=== PATIENT | female | born 1950 | race Caucasian/White ===

== ENCOUNTER 2023-10-10 09:19 | Emergency (ER) | payer MEDICARE, OTHER, SELFPAY ==
[2023-10-10 09:25] VITALS: BP 108/67
[2023-10-10 09:50] VITALS: BMI 19.4
--- NOTE | 2023-10-10 09:55 | ED.GENMED ---
History of Present Illness
General
Chief Complaint: Dizziness
Source: patient and records
Exam Limitations: none
Time Seen by Provider: 10/10/23 09:31
Nursing documentation reviewed up to this point in time: agreed with
Travel History
Have you had any contact with someone who has COVID-19?: No
Do you have any symptoms of coronavirus? Fever > 100 degrees, chills, cough, shortness of breath, sore throat, loss of taste or smell, muscle aches, or headache?: No
History of Present Illness
History of Present Illness:
73-year-old female COPD lung cancer seizure disorder presents for evaluation of dizziness, subacute onset she was admitted a few weeks ago with hyponatremia pleural effusion her Pleurx catheter was drained she was given Samsca for few days, since
then she has had weight loss fatigue dizziness despite drinking a lot of water, no chest pain no worsening shortness of breath no leg edema she comes here today requesting a CAT scan of her head and chest as ordered by her outpatient physicians at
[facility] also for evaluation of her complaints
Past History
Past History
ED Past Medical History: Cancer, COPD, HTN, Seizures and Other (Crohn's disease, anxiety)
ED Past Surgical History: Bowel resection (For Crohn's disease with a subsequent colostomy), Cholecystectomy and Other (Partial lung lobectomy)
Social History
Tobacco: Former smoker
Alcohol: None
Drug: None
Personal:
Living: alone
Employment: Employed
Family History
Family History: Other (No significant)
Review of Systems
Review of Systems
All Other Systems: Not applicable
Constitutional: Reports weight loss and fatigue
EENT: Reports no symptoms
Respiratory: Reports no symptoms
Cardiac: Reports no symptoms
ABD/GI: Reports no symptoms
: Reports no symptoms
Musculoskeletal: Reports no symptoms
Skin: Reports no symptoms
Neurological: Reports dizzy and weakness
Endocrine: Reports no symptoms
Hematologic/Lymphatic: Reports no symptoms
Psychiatric: Reports no symptoms
Phy Exam
Physical Exam
Physical Exam:
Physical Exam
General: Nontoxic chronically ill-appearing female
Neck: Lips are slightly dry
Heart: s1/s2 regular rate and rhythm, no murmur. equal radial pulses.
Lungs: no acute respiratory distress.
Neuro: alert and oriented. no focal neurological deficits
Skin: no rash
Psychiatric: cooperative
Extremities: no edema.
Course
Orders/Labs/Results
Orders:
Orders
10/10/23 09:45
Electrocardiogram (*1) Stat
Reason for Study: Other
Other Reason for Exam: chest pain
Cardiac Monitoring- Treatment ONCE
EKG- Treatment ONCE
10/10/23 09:51
CT Head W/o Iv Contrast Urgent
Comment:
Reason For Exam: dizzy
10/10/23 10:00
Complete Blood Count/With Diff Urgent
10/10/23 10:41
0.9% Sodium Chloride 250 ml [Nss] 250 ml IV BOLUS
Ondansetron Injectable [Zofran] 4 mg IV NOW STA
10/10/23 10:45
Comprehensive Metabolic Panel Urgent
Magnesium Urgent
TSH Urgent
10/10/23 12:10
0.9% Sodium Chloride 250 ml [Nss] 250 ml IV BOLUS
Dexamethasone Sod Phosphate [Decadron] 10 mg IV NOW STA
Abnormal Lab Results
10/10/23 10/10/23
10:00 10:45
Hgb 11.4 L g/dL
(12.0-16.0)
Hct 35.0 L %
(37.0-47.0)
MCH 26.9 L pg
(27.0-31.0)
MCHC 32.6 L g/dL
(33.0-37.0)
RDW 19.5 H %
(11.5-14.5)
Plt Count 88 L 10^3/uL
(130-400)
Abs Immat Gran (auto) 0.1 H 10^3/uL
(0-0.05)
Absolute Lymphs (auto) 0.6 L 10^3/uL
(1.2-3.4)
Immature Gran % 0.6 H %
(0-0.5)
Neutrophils % 82.2 H %
(42.2-75.2)
Lymphocytes % 8.2 L %
(20.5-51.1)
BUN 35 H mg/dl
(7-17)
Glucose 144 H mg/dl
(70-99)
Calcium 8.2 L mg/dl
(8.4-10.2)
Magnesium 1.5 L mg/dl
(1.6-2.3)
Total Bilirubin 1.5 H mg/dl
(0.2-1.3)
AST 84 H U/L
(14-36)
ALT 116 H U/L
(0-35)
Alkaline Phosphatase 243 H U/L
(38-126)
Total Protein 5.6 L g/dl
(6.3-8.2)
Albumin 3.0 L g/dl
(3.5-5.0)
10/10/23 10:00
10/10/23 10:45
Vital Signs
Initial and Last Documented VS:
Initial Vital Signs
Temp Pulse Resp BP Pulse Ox
97.8 F 99 18 108/67 96
10/10/23 09:25 10/10/23 09:25 10/10/23 09:25 10/10/23 09:25 10/10/23 09:25
Last Documented Vital Signs
Temp Pulse Resp BP Pulse Ox
97.8 F 99 18 108/67 98
10/10/23 09:25 10/10/23 09:25 10/10/23 09:25 10/10/23 09:25 10/10/23 09:52
MDM/Problems Addressed
Differential Diagnosis Includes:
Dehydration hyponatremia hypomagnesemia disease progression
MDM/Problems Addressed:
Fatigue
Chronic conditions affecting care:
Lung cancer COPD hyponatremia
Chronic conditions affecting care: COPD and Cancer
Acute Exacerbation and/or Progression of Chronic Illness:
Lung cancer COPD hyponatremia
Acute Exacerbation and/or Progression of Chronic Illness: COPD, Neurological disorder and Cancer
*Radiology
Radiology exam reviewed: preliminary read by ED provider
*Pulse Oximetry
Patient hypoxic: no
*Motor Inspection Mechanic Interpretation
Rate: normal
Interpretation: normal
Heart Rate: 78
Rhythm: sinus
*Critical Care Note
Total Time (30-74mins, 75-104mins- exclusive of procedures): Not Applicable
Data Reviewed
Review of Other/Old Records Reveals: Progress Notes and Discharge Summary
Source: patient and records
Update Note
Update Note:
Patient now tells me that is too early for her CT of her chest which she would like to have an MRI of her brain told her that we do not typically do that in the emergency department
12:12 PM labs noted BUN/creatinine ratio is up, will give another bolus of fluids, patient also complaining of some low back pain rating into her buttock and knees wondering about steroids which is not unreasonable also wondering about a nutrition
consult wondering about an MRI of her brain which she already has scheduled provided reassurance
ED Attending Note
-
Portions of this chart may have been created with voice recognition software.� Occasional wrong word or��sound alike� substitutions may have occurred due to the inherent limitations of voice recognition software.
Discharge Plan
Departure
Patient Disposition: Home (Routine Discharge)
Date of Disposition: 10/10/23
Time of Disposition: 12:13
Patient with high blood pressure during this ER visit?: No
Condition: Good
Discharge Problem:
Dehydration, Low back pain
Instructions: Dizziness, Low back pain in adults
Prescriptions:
No Action
lisinopril 5 MG tablet
2.5 mg PO DAILY
lorazepam 1 MG tablet
0.5 mg PO QPM
cyanocobalamin (vitamin B-12) 1,000 MCG tablet
1,000 mcg IM MONTHLY
phenobarbital 64.8 MG tablet
32.4 mg PO QPM
Patient Comments:
09/17/23- patient weening off
fluvoxamine 50 MG tablet
100 mg PO DAILY
cyclosporine [Restasis] 10 DROPS dropperette
1 drp BOTH EYES BID
cholecalciferol (vitamin D3) 50,000 UNIT capsule
50,000 unit PO WEEKLY
rosuvastatin [Crestor] 5 mg Tablet
5 mg PO QPM
tiotropium bromide [Spiriva with HandiHaler] 18 mcg Capsule, W/Inhalation Device
1 cap INHALATION R DAILY
fluticasone furoate-vilanterol [Breo Ellipta] 100-25 mcg/dose Blister With Device
1 inh INHALATION R DAILY
metoprolol succinate [Toprol XL] 50 mg Tablet Extended Release 24 Hr
50 mg PO DAILY
loperamide 2 mg Tablet
2 mg PO Q4HPRN PRN (Reason: diarrhea)
oxcarbazepine 300 mg Tablet
150 mg PO BID
Patient Comments:
09/17/23- patient weening off
omeprazole 40 mg Capsule,Delayed Release(Dr/Ec)
40 mg PO DAILYPRN PRN (Reason: gerd)
Krazati 200 mg Tablet
600 mg PO BID
ondansetron 8 mg Tablet,Disintegrating
8 mg PO Q8H PRN (Reason: nausea)
magnesium oxide 500 mg Tablet
500 mg PO DAILY Qty: 0 0RF
sodium chloride 1,000 mg tablet,soluble
1,000 mg PO BID Qty: 60 0RF
hydrocortisone 2.5 % cream
1 applic topical BID PRN (Reason: itch) Qty: 20 0RF
Referrals:
Marilyn Cortez MD [Family Provider] -
Interventions
Interventions:
*Risk Screen - Suicide Last Done: 10/10/23 09:51
*General Assessment Last Done: 10/10/23 09:51
*Neglect/Abuse Screening Last Done: 10/10/23 09:49
ED- Fall Risk Assessment Last Done: 10/10/23 09:52
*ED COVID-19 Vaccine History Last Done: 10/10/23 09:25
ED- Neurological Assessment Last Done: 10/10/23 09:52
[2023-10-10 10:23] LABS: % Basophils 0.1 % (0-2); % Immature Granulocytes 0.6 % (0-0.5); % Lymphocytes 8.2 % (20.5-51.1); % Monocytes 7.9 % (1.7-9.3); % Neutrophils 82.2 % (42.2-75.2); Absolute Eosinophils 0.1 10^3/uL (0-0.7); Absolute Immature Granulocytes 0.1 10^3/uL (0-0.05); Absolute Lymphocytes 0.6 10^3/uL (1.2-3.4); Absolute Monocytes 0.6 10^3/uL (0.1-0.6); Absolute Neutrophils 6.4 10^3/uL (1.4-6.5); Hemoglobin 11.4 g/dL (12.0-16.0); Mean Corp Hgb Conc. 32.6 g/dL (33.0-37.0); Mean Corpuscular Hgb 26.9 pg (27.0-31.0); Mean Corpuscular Volume 82.5 fL (81.0-99.0); Nucleated Red Blood Cells % 0 %; Red Blood Cell Count 4.24 10^6/uL (4.20-5.40); Red Cell Dist. Width 19.5 % (11.5-14.5); White Blood Cell Count 7.8 10^3/uL (4.8-10.8)
[2023-10-10] MEDS: ZOFRAN 4 MG IV (10:47)
[2023-10-10] MEDS: NSS 250 IV (10:49)
[2023-10-10 11:00] VITALS: BP 98/52
[2023-10-10 11:12] LABS: ALT (SGPT) 116 U/L (0-35); AST (SGOT) 84 U/L (14-36); Alkaline Phosphatase 243 U/L (38-126); Blood Urea Nitrogen 35 mg/dl (7-17); Calcium 8.2 mg/dl (8.4-10.2); Carbon Dioxide 25 mmol/L (22-30); Chloride 107 mmol/L (98-107); Estimated Creatinine Clearance 49 ml/min; Glucose 144 mg/dl (70-99); Magnesium 1.5 mg/dl (1.6-2.3); Potassium 3.6 mmol/L (3.5-5.1); Sodium 136 mmol/L (135-145); Total Bilirubin 1.5 mg/dl (0.2-1.3); Total Protein 5.6 g/dl (6.3-8.2); eGFR > 60.00
[2023-10-10 11:42] LABS: TSH 4.16 uIU/ml (0.47-4.68)
[2023-10-10 11:59] LABS: Platelet Count 88 10^3/uL (130-400)
[2023-10-10 12:16] VITALS: BP 109/63
[2023-10-10] MEDS: DECADRON 10 MG IV (12:19)
[2023-10-10] MEDS: NSS 500 IV (12:22)
[2023-10-10 12:56] VITALS: BP 98/58
[2023-10-10 12:57] VITALS: BP 107/59
== END 2023-10-10 13:20 | disposition home or self-care (01) ==
LOC: EMR 09:19
PROVIDERS: EMERGENCY PHYSICIAN Emergency Medicine; FAMILY PHYSICIAN Internal Medicine
DX: E86.0 Dehydration (principal); M54.50 Low back pain, unspecified; R42 Dizziness and giddiness; I10 Essential (primary) hypertension; J44.9 Chronic obstructive pulmonary disease, unspecified; F41.9 Anxiety disorder, unspecified; K50.90 Crohn's disease, unspecified, without complications; E87.1 Hypo-osmolality and hyponatremia; Z87.891 Personal history of nicotine dependence; Z93.3 Colostomy status
CPT/HCPCS: 99284; 96374; 96375; 96361; 70450; 80053; 83735; 84443; 85025; 93005

== ENCOUNTER 2023-10-26 09:31 | Emergency (ER) | payer MEDICARE, OTHER, SELFPAY ==
[2023-10-26 09:38] VITALS: BP 115/78
--- NOTE | 2023-10-26 09:56 | EDRN ---
Pt walked back to her room in the treatment area and said to me 'I am not going to change. I do not need to change to get an IV.'
--- NOTE | 2023-10-26 10:05 | ED.GENMED ---
History of Present Illness
General
Chief Complaint: Abnormal Lab Value
Time Seen by Provider: 10/26/23 09:47
Travel History
Have you had any contact with someone who has COVID-19?: No
Do you have any symptoms of coronavirus? Fever > 100 degrees, chills, cough, shortness of breath, sore throat, loss of taste or smell, muscle aches, or headache?: No
History of Present Illness
History of Present Illness:
73-year-old female with history of lung cancer, COPD, hypertension, hyperlipidemia, and Crohn's disease status post partial SB resection with subsequent ostomy presents to the emergency department for evaluation of general fatigue and malaise. She
notes that her ostomy output is increased in recent days. Had outpatient labs 2 days ago showing a low magnesium level of 1.0. Denies any muscle spasms, heart palpitations, or chest pain. No vomiting. Did have increased stool output after eating
fish last night. No abdominal pain
Past History
Past History
ED Past Medical History: Cancer, COPD, HTN, Seizures and Other (Crohn's disease, anxiety)
ED Past Surgical History: Bowel resection (For Crohn's disease with a subsequent colostomy), Cholecystectomy and Other (Partial lung lobectomy)
Social History
Tobacco: Former smoker
Alcohol: None
Drug: None
Personal:
Living: alone
Employment: Employed
Family History
Family History: Other (No significant)
Review of Systems
Review of Systems
Allergies reviewed?: Yes
All Other Systems: ROS reviewed and negative except as documented in HPI and ROS
Phy Exam
Physical Exam
Physical Exam:
GEN: Well appearing, NAD, WDWN
HEENT: Oral mucosa moist, no scleral icterus
Cardiac: Slightly tachycardic, regular
Lung: No respiratory distress, no tachypnea
MSK: No gross deformity or injuries
Skin: Good color, no pallor or jaundice, no rashes
Neuro: AO x3, moves all extremities freely
Psych: Calm, cooperative
Course
Orders/Labs/Results
Orders:
Orders
10/26/23 10:05
Electrocardiogram (*1) Urgent
Reason for Study: QTc Monitoring
EKG- Treatment ONCE
10/26/23 10:13
Magnesium Sulfate 1 grams 0.9% Sodium Chloride 100 ml [Nss] 100 ml IV NOW
10/26/23 10:15
Lactated Ringers [Lr] 1,000 ml Potassium Chloride [KCl] 10 meq IV 1,000 mls/hr
10/26/23 10:37
Complete Blood Count/With Diff Urgent
Comprehensive Metabolic Panel Urgent
Magnesium Urgent
10/26/23 10:49
Urinalysis Reflex To Culture Urgent
Date Specimen was Collected: 10/26/23
Time Specimen was Collected: 10:48
Urine Microscopic Reflex Cult Urgent
Urine Culture Urgent
MABLE Source: U
Specimen Description:
Date Specimen was Collected: 10/26/23
Time Specimen was Collected: 10:48
10/26/23 11:29
Ondansetron Injectable [Zofran] 4 mg IV NOW STA
Abnormal Lab Results
10/26/23 10/26/23
10:37 10:49
Hgb 11.7 L g/dL
(12.0-16.0)
Hct 35.6 L %
(37.0-47.0)
MCV 80.5 L fL
(81.0-99.0)
MCH 26.5 L pg
(27.0-31.0)
MCHC 32.9 L g/dL
(33.0-37.0)
RDW 18.9 H %
(11.5-14.5)
Abs Immat Gran (auto) 0.1 H 10^3/uL
(0-0.05)
Absolute Lymphs (auto) 0.8 L 10^3/uL
(1.2-3.4)
Immature Gran % 1.1 H %
(0-0.5)
Neutrophils % 80.5 H %
(42.2-75.2)
Lymphocytes % 12.3 L %
(20.5-51.1)
Sodium 129 L mmol/L
(135-145)
BUN 23 H mg/dl
(7-17)
Creatinine 0.5 L mg/dL
(0.6-1.0)
Magnesium 1.1 L mg/dl
(1.6-2.3)
AST 62 H U/L
(14-36)
ALT 65 H U/L
(0-35)
Leukocyte Esterase Rfl 2+ A
(Negative)
Urine WBC (Reflex) 11-15 A /HPF
(0-5)
Urine Bacteria (Reflex) Few A
(Negative)
10/26/23 10:37
10/26/23 10:37
Vital Signs
Initial and Last Documented VS:
Initial Vital Signs
Temp Pulse Resp BP Pulse Ox
98.1 F 110 18 115/78 100
10/26/23 09:38 10/26/23 09:38 10/26/23 09:38 10/26/23 09:38 10/26/23 09:38
Last Documented Vital Signs
Temp Pulse Resp BP Pulse Ox
98.4 F 87 16 104/57 100
10/26/23 11:52 10/26/23 12:50 10/26/23 12:50 10/26/23 12:50 10/26/23 12:50
MDM/Problems Addressed
MDM/Problems Addressed:
Patient is hypomagnesemic with no EKG changes. She is tolerating p.o. fluids. Given IV fluids and electrolyte repletion, tolerated well. Recommend she have outpatient labs rechecked next week
*Critical Care Note
Total Time (30-74mins, 75-104mins- exclusive of procedures): Not Applicable
ED Attending Note
-
Portions of this chart may have been created with voice recognition software.� Occasional wrong word or��sound alike� substitutions may have occurred due to the inherent limitations of voice recognition software.
Discharge Plan
Departure
Patient Disposition: Home (Routine Discharge)
Date of Disposition: 10/26/23
Time of Disposition: 12:03
Patient with high blood pressure during this ER visit?: No
Discharge Problem:
Hypomagnesemia
Instructions: Dehydration, Adult (DC)
Prescriptions:
No Action
lisinopril 5 MG tablet
2.5 mg PO DAILY
lorazepam 1 MG tablet
0.5 mg PO QPM
cyanocobalamin (vitamin B-12) 1,000 MCG tablet
1,000 mcg IM MONTHLY
phenobarbital 64.8 MG tablet
32.4 mg PO QPM
Patient Comments:
09/17/23- patient weening off
fluvoxamine 50 MG tablet
100 mg PO DAILY
cyclosporine [Restasis] 10 DROPS dropperette
1 drp BOTH EYES BID
cholecalciferol (vitamin D3) 50,000 UNIT capsule
50,000 unit PO WEEKLY
rosuvastatin [Crestor] 5 mg Tablet
5 mg PO QPM
tiotropium bromide [Spiriva with HandiHaler] 18 mcg Capsule, W/Inhalation Device
1 cap INHALATION R DAILY
fluticasone furoate-vilanterol [Breo Ellipta] 100-25 mcg/dose Blister With Device
1 inh INHALATION R DAILY
metoprolol succinate [Toprol XL] 50 mg Tablet Extended Release 24 Hr
50 mg PO DAILY
loperamide 2 mg Tablet
2 mg PO Q4HPRN PRN (Reason: diarrhea)
oxcarbazepine 300 mg Tablet
150 mg PO BID
Patient Comments:
09/17/23- patient weening off
omeprazole 40 mg Capsule,Delayed Release(Dr/Ec)
40 mg PO DAILYPRN PRN (Reason: gerd)
Krazati 200 mg Tablet
600 mg PO BID
ondansetron 8 mg Tablet,Disintegrating
8 mg PO Q8H PRN (Reason: nausea)
magnesium oxide 500 mg Tablet
500 mg PO DAILY Qty: 0 0RF
sodium chloride 1,000 mg tablet,soluble
1,000 mg PO BID Qty: 60 0RF
hydrocortisone 2.5 % cream
1 applic topical BID PRN (Reason: itch) Qty: 20 0RF
methylprednisolone [Medrol (Eleazar)] 4 mg tablets,dose pack
See Rx Instructions .ROUTE .COMPLEX Qty: 21 0RF
Rx Instructions:
orally per package directions
Referrals:
Marilyn Cortez MD [Family Provider] -
Interventions
Interventions:
*Risk Screen - Suicide Last Done: 10/26/23 12:23
*General Assessment Last Done: 10/26/23 12:58
*Neglect/Abuse Screening Last Done: 10/26/23 12:23
ED- Fall Risk Assessment Last Done: 10/26/23 12:23
*ED COVID-19 Vaccine History Last Done: 10/26/23 12:23
*Nursing Disposition Last Done: 10/26/23 12:58
Discharge Date and Time
Discharge Date/Time: 10/26/23 12:59
[2023-10-26] MEDS: MAGNESIUM SULFATE 102 GRAMS IV (10:37)
[2023-10-26] MEDS: KCL 1005 MEQ IV (10:37)
[2023-10-26 10:46] LABS: % Basophils 0.2 % (0-2); % Immature Granulocytes 1.1 % (0-0.5); % Lymphocytes 12.3 % (20.5-51.1); % Monocytes 5.9 % (1.7-9.3); % Neutrophils 80.5 % (42.2-75.2); Absolute Immature Granulocytes 0.1 10^3/uL (0-0.05); Absolute Lymphocytes 0.8 10^3/uL (1.2-3.4); Absolute Monocytes 0.4 10^3/uL (0.1-0.6); Absolute Neutrophils 5.1 10^3/uL (1.4-6.5); Hematocrit 35.6 % (37.0-47.0); Hemoglobin 11.7 g/dL (12.0-16.0); Mean Corp Hgb Conc. 32.9 g/dL (33.0-37.0); Mean Corpuscular Hgb 26.5 pg (27.0-31.0); Mean Corpuscular Volume 80.5 fL (81.0-99.0); Mean Platelet Volume 9.1 fL (7.4-10.4); Nucleated Red Blood Cells % 0 %; Platelet Count 145 10^3/uL (130-400); Red Blood Cell Count 4.42 10^6/uL (4.20-5.40); Red Cell Dist. Width 18.9 % (11.5-14.5); White Blood Cell Count 6.3 10^3/uL (4.8-10.8)
[2023-10-26 11:02] LABS: ALT (SGPT) 65 U/L (0-35); AST (SGOT) 62 U/L (14-36); Albumin 3.6 g/dl (3.5-5.0); Alkaline Phosphatase 99 U/L (38-126); Blood Urea Nitrogen 23 mg/dl (7-17); Calcium 8.4 mg/dl (8.4-10.2); Carbon Dioxide 28 mmol/L (22-30); Chloride 99 mmol/L (98-107); Glucose 86 mg/dl (70-99); Magnesium 1.1 mg/dl (1.6-2.3); Potassium 3.8 mmol/L (3.5-5.1); Sodium 129 mmol/L (135-145); Total Bilirubin 0.7 mg/dl (0.2-1.3); Total Protein 6.3 g/dl (6.3-8.2); eGFR > 60.00
[2023-10-26 11:03] LABS: Urine Albumin Trace (Neg - Trace); Urine Bilirubin Negative (Negative); Urine Character Clear (Clear); Urine Color Yellow; Urine Glucose Negative (Negative); Urine Ketone Negative (Negative); Urine Leukocyte 2+ (Negative); Urine Nitrite Negative (Negative); Urine Occult Blood Negative (Negative); Urine Specific Gravity 1.025 (<1.030); Urine Urobilinogen Negative (Neg - 1+)
[2023-10-26 11:29] LABS: Urine Amorphous Seen; Urine Red Blood Cell 0-2 /HPF (0-2); Urine Squamous Cell 0-2 /LPF (Few)
[2023-10-26 11:30] LABS: Urine Bacteria Few (Negative)
[2023-10-26 11:52] VITALS: BP 103/57
[2023-10-26] MEDS: ZOFRAN 4 MG IV (12:25)
[2023-10-26 12:50] VITALS: BP 104/57
== END 2023-10-26 12:59 | disposition home or self-care (01) ==
LOC: EMR 09:31
PROVIDERS: Physician Assistant; EMERGENCY PHYSICIAN Emergency Medicine; FAMILY PHYSICIAN Internal Medicine
DX: E83.42 Hypomagnesemia (principal); Z85.118 Personal history of other malignant neoplasm of bronchus and lung; Z87.891 Personal history of nicotine dependence; Z93.3 Colostomy status
CPT/HCPCS: 99284; 96365; 96375; 96361 ×2; 80053; 81003; 81015; 83735; 85025; 87086; 93005

== ENCOUNTER → 2023-10-29 17:19 | Outpatient (REF) | payer MEDICARE, OTHER, SELFPAY | LOC: MRI 17:19 | PROVIDERS: ATTENDING PHYSICIAN Internal Medicine Hematology & Oncology; FAMILY PHYSICIAN Internal Medicine | DX: C34.31 Malignant neoplasm of lower lobe, right bronchus or lung (principal) | CPT/HCPCS: 70553; A9575 ==

== ENCOUNTER 2023-10-30 14:41 | Inpatient (IN) | payer MEDICARE, OTHER, SELFPAY ==
[2023-10-30] VITALS (10 sets, daily range): BP systolic 95–134; BP diastolic 49–105
[2023-10-30 09:59] LABS: Hematocrit 31.2 % (37.0-47.0); Hemoglobin 10.4 g/dL (12.0-16.0); Mean Corp Hgb Conc. 33.3 g/dL (33.0-37.0); Mean Corpuscular Hgb 26.5 pg (27.0-31.0); Mean Corpuscular Volume 79.4 fL (81.0-99.0); Mean Platelet Volume 9.4 fL (7.4-10.4); Platelet Count 78 10^3/uL (130-400); Red Blood Cell Count 3.93 10^6/uL (4.20-5.40); White Blood Cell Count 5.1 10^3/uL (4.8-10.8)
--- NOTE | 2023-10-30 10:08 | ED.GENMED ---
History of Present Illness
<Venkata Richardson Jr., PA-C - Last Filed: 10/30/23 13:32>
General
Chief Complaint: Breathing Problem
Source: patient
Exam Limitations: none
Time Seen by Provider: 10/30/23 08:51
Nursing documentation reviewed up to this point in time: agreed with
Travel History
Have you had any contact with someone who has COVID-19?: No
Do you have any symptoms of coronavirus? Fever > 100 degrees, chills, cough, shortness of breath, sore throat, loss of taste or smell, muscle aches, or headache?: Yes
Symptoms:: [place]AMMAD
History of Present Illness
History of Present Illness:
73-year-old female with past medical history of COPD lung cancer currently on oral chemo, Crohn's disease colostomy in place presenting to the emergency department today with concerns of worsening shortness of breath lightheadedness generalized
weakness and fatigue over the past few days. Has had similar episodes in the past. Denies specific chest pain has had some nausea no vomiting. Denies specific fevers or upper respiratory symptoms
Past History
<Venkata Richardson Jr., PA-C - Last Filed: 10/30/23 13:32>
Past History
ED Past Medical History: Cancer, COPD, HTN, Seizures and Other (Crohn's disease, anxiety)
ED Past Surgical History: Bowel resection (For Crohn's disease with a subsequent colostomy), Cholecystectomy and Other (Partial lung lobectomy)
Social History
Tobacco: Former smoker
Alcohol: None
Drug: None
Personal:
Living: alone
Employment: Employed
Family History
Family History: Other (No significant)
Review of Systems
<Venkata Richardson Jr., PA-C - Last Filed: 10/30/23 13:32>
Review of Systems
Allergies reviewed?: Yes
All Other Systems: ROS reviewed and negative except as documented in HPI and ROS
Phy Exam
<Venkata Richardson Jr., PA-C - Last Filed: 10/30/23 13:32>
Physical Exam
Physical Exam:
GENERAL: Alert , in no apparent distress
EYE: pupils equal and reactive
NECK: Supple, no significant adenopathy.
ENT: o/p clr, mmm.
CARDIAC: Regular rate and rhythm .
LUNGS: Clear breath sounds bilaterally, no acute respiratory distress, no wheezes/rales/rhonchi
ABDOMEN: Soft, without focal tenderness, no r/g, no cvat
NEUROLOGICAL: Alert and oriented, no focal neuro deficits
SKIN: Warm and dry, skin intact.
MUSCULOSKELETAL: No edema, well perfused.
PSYCH: Normal and appropriate interaction.
Scores
<Venkata Richardson Jr., PA-C - Last Filed: 10/30/23 13:32>
Heart Failure Risk
Heart Failure Risk Score: Not Applicable
Course
<TALAT Hawley Jr. Last Filed: 10/30/23 13:32>
Orders/Labs/Results
Orders:
Orders
10/30/23 09:06
Electrocardiogram (*1) Stat
Reason for Study: Other
Other Reason for Exam: chest pain
EKG- Treatment ONCE
CR Chest - 2 Views Urgent
Comment:
Reason For Exam: sob
10/30/23 09:49
Complete Blood Count/With Diff Urgent
Comprehensive Metabolic Panel Urgent
D-Dimer Urgent
Magnesium Urgent
Manual Differential Urgent
NT-proBNP Urgent
TSH Urgent
Troponin I Urgent
10/30/23 10:32
CT Chest Pe Study Urgent
Comment:
Reason For Exam: sob elevated dimer
10/30/23 10:42
Loperamide [Imodium] 2 mg PO NOW STA
10/30/23 11:05
0.9% Sodium Chloride 500 ml [Nss] 500 ml IV BOLUS
Ondansetron Injectable [Zofran] 4 mg IV NOW STA
10/30/23 11:41
Urinalysis Reflex To Culture Urgent
Date Specimen was Collected: 10/30/23
Time Specimen was Collected: 11:39
Urine Microscopic Reflex Cult Urgent
10/30/23 12:16
Magnesium Sulfate 1 grams 0.9% Sodium Chloride 100 ml [Nss] 100 ml IV NOW
10/30/23 14:23
Magnesium Sulfate 2 Gram/50 ml [Magnesium Sulfate] 2 gram in 50 ml IV NOW
10/30/23 14:24
Potassium Chloride [KCl] 40 meq PO NOW STA
10/30/23 14:26
Admit/Transfer Patient As Directed
Co-Sign Provider:
Level of Care: Inpatient admission
Assign to:: Telemetry
Physician / Group: hospitalist-Cindi
Diagnosis: hypoxia
Reason for Telemetry: Arrhythmia
Date to Stop Telemetry: 11/02/23
Time to Stop Telemetry: 11:00
Reason for Hospitalization: IV repletion, O2, IV steroids
Expected length of stay greater than two midnights?: Yes
ELOS- Estimated Length of Stay in days: 3
I certify the patient meets the requirements for IP care: Yes
10/30/23 14:30
Code Status As Directed
Resuscitation Status: Full Code
10/30/23 20:00
Sodium Chloride 1 gram PO BID
11/02/23 11:00
DC Protocol for Telemetry ONCE
Abnormal Lab Results
10/30/23 10/30/23
09:49 11:41
RBC 3.93 L 10^6/uL
(4.20-5.40)
Hgb 10.4 L g/dL
(12.0-16.0)
Hct 31.2 L %
(37.0-47.0)
MCV 79.4 L fL
(81.0-99.0)
MCH 26.5 L pg
(27.0-31.0)
RDW 19.0 H %
(11.5-14.5)
Plt Count 78 L D 10^3/uL
(130-400)
Lymphocytes (Manual) 11 L %
(20-51)
D-Dimer 3.89 H ug/mlFEU
(0.00-0.50)
Sodium 131 L mmol/L
(135-145)
Potassium 3.3 L mmol/L
(3.5-5.1)
Carbon Dioxide 31 H mmol/L
(22-30)
Calcium 8.1 L mg/dl
(8.4-10.2)
Magnesium 0.9 L* mg/dl
(1.6-2.3)
AST 87 H U/L
(14-36)
ALT 105 H U/L
(0-35)
Alkaline Phosphatase 165 H U/L
(38-126)
Total Protein 5.6 L g/dl
(6.3-8.2)
Albumin 3.1 L g/dl
(3.5-5.0)
Urine Bilirubin 1+ A
(Negative)
Leukocyte Esterase Rfl Trace A
(Negative)
Urine Bacteria (Reflex) Few A
(Negative)
10/30/23 09:49
10/30/23 09:49
Vital Signs
Initial and Last Documented VS:
Initial Vital Signs
Temp Pulse Resp BP Pulse Ox
98.9 F 92 20 125/65 91
10/30/23 08:57 10/30/23 08:57 10/30/23 08:57 10/30/23 08:57 10/30/23 08:57
Last Documented Vital Signs
Temp Pulse Resp BP Pulse Ox
98.9 F 77 19 97/53 96
10/30/23 08:57 10/30/23 14:15 10/30/23 14:15 10/30/23 14:00 10/30/23 14:15
<Ward Martin MD - Last Filed: 10/30/23 14:48>
Orders/Labs/Results
Orders:
Orders
10/30/23 09:06
Electrocardiogram (*1) Stat
Reason for Study: Other
Other Reason for Exam: chest pain
EKG- Treatment ONCE
CR Chest - 2 Views Urgent
Comment:
Reason For Exam: sob
10/30/23 09:49
Complete Blood Count/With Diff Urgent
Comprehensive Metabolic Panel Urgent
D-Dimer Urgent
Magnesium Urgent
Manual Differential Urgent
NT-proBNP Urgent
TSH Urgent
Troponin I Urgent
10/30/23 10:32
CT Chest Pe Study Urgent
Comment:
Reason For Exam: sob elevated dimer
10/30/23 10:42
Loperamide [Imodium] 2 mg PO NOW STA
10/30/23 11:05
0.9% Sodium Chloride 500 ml [Nss] 500 ml IV BOLUS
Ondansetron Injectable [Zofran] 4 mg IV NOW STA
10/30/23 11:41
Urinalysis Reflex To Culture Urgent
Date Specimen was Collected: 10/30/23
Time Specimen was Collected: 11:39
Urine Microscopic Reflex Cult Urgent
10/30/23 12:16
Magnesium Sulfate 1 grams 0.9% Sodium Chloride 100 ml [Nss] 100 ml IV NOW
10/30/23 14:23
Magnesium Sulfate 2 Gram/50 ml [Magnesium Sulfate] 2 gram in 50 ml IV NOW
10/30/23 14:24
Potassium Chloride [KCl] 40 meq PO NOW STA
10/30/23 14:26
Admit/Transfer Patient As Directed
Co-Sign Provider:
Level of Care: Inpatient admission
Assign to:: Telemetry
Physician / Group: wilfredoist-Cindi
Diagnosis: hypoxia
Reason for Telemetry: Arrhythmia
Date to Stop Telemetry: 11/02/23
Time to Stop Telemetry: 11:00
Reason for Hospitalization: IV repletion, O2, IV steroids
Expected length of stay greater than two midnights?: Yes
ELOS- Estimated Length of Stay in days: 3
I certify the patient meets the requirements for IP care: Yes
10/30/23 14:30
Code Status As Directed
Resuscitation Status: Full Code
10/30/23 20:00
Sodium Chloride 1 gram PO BID
11/02/23 11:00
DC Protocol for Telemetry ONCE
Abnormal Lab Results
10/30/23 10/30/23
09:49 11:41
RBC 3.93 L 10^6/uL
(4.20-5.40)
Hgb 10.4 L g/dL
(12.0-16.0)
Hct 31.2 L %
(37.0-47.0)
MCV 79.4 L fL
(81.0-99.0)
MCH 26.5 L pg
(27.0-31.0)
RDW 19.0 H %
(11.5-14.5)
Plt Count 78 L D 10^3/uL
(130-400)
Lymphocytes (Manual) 11 L %
(20-51)
D-Dimer 3.89 H ug/mlFEU
(0.00-0.50)
Sodium 131 L mmol/L
(135-145)
Potassium 3.3 L mmol/L
(3.5-5.1)
Carbon Dioxide 31 H mmol/L
(22-30)
Calcium 8.1 L mg/dl
(8.4-10.2)
Magnesium 0.9 L* mg/dl
(1.6-2.3)
AST 87 H U/L
(14-36)
ALT 105 H U/L
(0-35)
Alkaline Phosphatase 165 H U/L
(38-126)
Total Protein 5.6 L g/dl
(6.3-8.2)
Albumin 3.1 L g/dl
(3.5-5.0)
Urine Bilirubin 1+ A
(Negative)
Leukocyte Esterase Rfl Trace A
(Negative)
Urine Bacteria (Reflex) Few A
(Negative)
10/30/23 09:49
10/30/23 09:49
Vital Signs
Initial and Last Documented VS:
Initial Vital Signs
Temp Pulse Resp BP Pulse Ox
98.9 F 92 20 125/65 91
10/30/23 08:57 10/30/23 08:57 10/30/23 08:57 10/30/23 08:57 10/30/23 08:57
Last Documented Vital Signs
Temp Pulse Resp BP Pulse Ox
98.9 F 77 19 97/53 96
10/30/23 08:57 10/30/23 14:15 10/30/23 14:15 10/30/23 14:00 10/30/23 14:15
<Venkata Richardson Jr., PA-C - Last Filed: 10/30/23 13:32>
MDM/Problems Addressed
MDM/Problems Addressed:
73-year-old [place] with concerns of generalized weakness fatigue shortness of breath worse with exertion worsening over the past few days. Does have a history of lung cancer currently on chemo. Upon arrival pulse ox in the
80s at rest requiring nasal cannula oxygen improving to the high 90s with 3 L. Patient denies requiring oxygen at home typically does not use oxygen. Otherwise lungs were clear on examination patient no distress during my assessment. Labs
obtained showing hypomagnesemia which she has had in the past and 0.9 started on magnesium repletion. Sodium mildly low. Patient was taken off of the oxygen and pulse ox immediately dropped in the 80s she was then placed back on the oxygen. CT
scan was obtained to ensure there is no blood clot or worsening lung findings. There was no emergent findings on CT scan. Unclear specific cause of hypoxemia plan to admit for further assessment.
<Venkata Richardson Jr., PA-C - Last Filed: 10/30/23 13:32>
*Critical Care Note
Total Time (30-74mins, 75-104mins- exclusive of procedures): Not Applicable
ED Attending Note
<Venkata Richardson Jr., PA-C - Last Filed: 10/30/23 13:32>
-
Portions of this chart may have been created with voice recognition software.� Occasional wrong word or��sound alike� substitutions may have occurred due to the inherent limitations of voice recognition software.
<Ward Martin MD - Last Filed: 10/30/23 14:48>
ED Attending Note
Patient seen and examined by attending physician: Yes
ED Attending Note:
Patient with history of lung cancer, presents to ED secondary to worsening shortness of breath with exertion. Denies chest pain. Denies fever or chills. Denies URI symptoms. Reports minimal shortness of breath at rest.
Hypoxia noted, improved with supplemental oxygen, likely multifactorial, including underlying lung disease, as well as possible COPD exacerbation.
CT chest: no PE.
Patient will be admitted for further evaluation treatment.
Discharge Plan
Departure
Patient Disposition: Admit
Date of Disposition: 10/30/23
Time of Disposition: 13:31
Admit to: Telemetry
Admit to doctor: Ana Luisa
Presentation/result/management discussed w/ accepting MD/DO: Hospitalist
Patient with high blood pressure during this ER visit?: No
Condition: Good
Covid-19: Not Applicable
Discharge Problem:
Hypoxemia, Hypomagnesemia
Interventions
Interventions:
*Risk Screen - Suicide Last Done: 10/30/23 14:35
*Neglect/Abuse Screening Last Done: 10/30/23 14:35
ED- Fall Risk Assessment Last Done: 10/30/23 14:35
*ED COVID-19 Vaccine History Last Done: 10/30/23 14:35
ED- Cardiac Assessment Last Done: 10/30/23 09:04
ED- Pulmonary Assessment Last Done: 10/30/23 09:04
[2023-10-30 10:21] LABS: ALT (SGPT) 105 U/L (0-35); AST (SGOT) 87 U/L (14-36); Albumin 3.1 g/dl (3.5-5.0); Alkaline Phosphatase 165 U/L (38-126); Blood Urea Nitrogen 17 mg/dl (7-17); Calcium 8.1 mg/dl (8.4-10.2); Carbon Dioxide 31 mmol/L (22-30); Chloride 101 mmol/L (98-107); Glucose 92 mg/dl (70-99); Magnesium 0.9 mg/dl (1.6-2.3); Potassium 3.3 mmol/L (3.5-5.1); Sodium 131 mmol/L (135-145); Total Bilirubin 0.8 mg/dl (0.2-1.3); Total Protein 5.6 g/dl (6.3-8.2); eGFR > 60.00
[2023-10-30 10:26] LABS: D-Dimer 3.89 ug/mlFEU (0.00-0.50); NT-proBNP 265 pg/ml; Troponin I < 0.012 ng/ml
[2023-10-30 10:46] LABS: TSH 3.33 uIU/ml (0.47-4.68)
[2023-10-30 10:56] LABS: Absolute Neutrophils -Man Diff 3.8 10^3/uL (1.4-6.5); Band Neutrophils 0 % (0-3); Lymphocytes 11 % (20-51); Monocytes 8 % (2-9); Segmented Neutrophils 75 % (42-75)
[2023-10-30 10:57] LABS: Hypochromasia 1+; Microcytosis Slight; Normal RBC Morphology No; Platelets Checked Yes
[2023-10-30 10:58] LABS: Total Cells Counted 100
[2023-10-30] MEDS: IMODIUM 2 MG PO ×2 (11:01→14:56)
[2023-10-30] MEDS: ZOFRAN 4 MG IV (11:25)
[2023-10-30] MEDS: NSS 500 IV (11:25)
[2023-10-30 12:00] LABS: Urine Albumin Trace (Neg - Trace); Urine Bilirubin 1+ (Negative); Urine Character Clear (Clear); Urine Color Yellow; Urine Glucose Negative (Negative); Urine Ketone Negative (Negative); Urine Leukocyte Trace (Negative); Urine Nitrite Negative (Negative); Urine Occult Blood Negative (Negative); Urine Specific Gravity 1.015 (<1.030); Urine Urobilinogen Negative (Neg - 1+)
[2023-10-30 12:14] LABS: Urine Bacteria Few (Negative); Urine Mucus Moderate; Urine Red Blood Cell 0-2 /HPF (0-2)
[2023-10-30] MEDS: MAGNESIUM SULFATE 102 GRAMS IV (12:35)
--- NOTE | 2023-10-30 14:34 | HPS.HSE ---
Family Physician
-
Family Physician: Marilyn Cortez
Chief Complaint
-
Dropping pulse ox
History of Present Illness
Patient is a 73-year-old female with a history of lung cancer and recurrent pleural effusion with a Pleurx catheter who stated that she was doing well until Sunday when her oxygen level dropped. She denied chest pain, fever, chills. She denied
cough. She did admit to being winded when going up the steps. She states that her family doctor/lung cancer doctor is thinking about putting her back on Decadron and taking the Pleurx catheter out. Patient's workup found her to require oxygen as
well as needing magnesium and potassium repletion. Patient is being admitted.
Medical History
Past Medical History
Past Medical History: Reports Other
Additional Past Medical History:
Lung cancer presumed metastatic with recurrent pleural effusion and Pleurx catheter
Essential hypertension
Seizure disorder
Crohn's disease
Hyperlipidemia
Chronic obstructive pulmonary disease
Past Surgical History: Reports Other
Additional Past Surgical History:
Lung resection
Ostomy for Crohn's disease
Cholecystectomy
Social History
Tobacco: Former Smoker
Alcohol: None
Drug: None
Family History
Family History: Other (Mother had uterine cancer, father had cancer of unknown kind both late in life)
Allergies / Home Medications
Allergies reflects when Allergies were last updated in [facility].
Home Medications with original date entered in [facility]
Allergy/Medication List:
Allergies
Allergy/AdvReac Type Severity Reaction Status Date / Time
acetaminophen [From Vicodin] Allergy Elevates Verified 10/30/23 09:00
ALT, AST
hydrocodone bitartrate Allergy Vomiting-'deathly Verified 10/30/23 09:00
[From Vicodin] sick in
stomach'
latex Allergy redness Verified 10/30/23 09:00
and
itching,
rash
meperidine HCl [From Demerol] Allergy Nausea / Verified 10/30/23 09:00
Vomiting
propoxyphene Allergy 'DARVOCET' Verified 10/30/23 09:00
[From Darvocet-N] PER
WRITTEN
ORDER FOR
03/24/19
Home Medications
lisinopril 5 mg tablet 2.5 mg PO DAILY Blood Pressure 03/22/15
lorazepam 1 mg tablet 0.5 mg PO QPM anxiety 03/22/15
cyanocobalamin (vitamin B-12) 1,000 mcg tablet 1,000 mcg IM MONTHLY Supplement 03/12/19
cyclosporine 0.05 % eye drops in a dropperette (Restasis) 1 drp BOTH EYES BID dry eyes 03/12/19
fluvoxamine 50 mg tablet 100 mg PO DAILY Mental Health/Anxiety 03/12/19
phenobarbital 64.8 mg tablet 64.8 mg PO QPM Neurological Condition 03/12/19
fluticasone furoate 100 mcg-vilanterol 25 mcg/dose inhalation powder (Breo Ellipta) 1 inh inhalation R DAILY Lung/Breathing Issues 09/26/22
rosuvastatin 5 mg tablet (Crestor) 5 mg PO QPM High Cholesterol 09/26/22
tiotropium bromide 18 mcg capsule with inhalation device (Spiriva with HandiHaler) 1 cap inhalation R DAILY Lung/Breathing Issues 09/26/22
adagrasib 200 mg tablet (Krazati) 600 mg PO BID Cancer 09/17/23
loperamide 2 mg tablet 2 mg PO Q4HPRN PRN diarrhea 09/17/23
metoprolol succinate 50 mg tablet,extended release 24 hr (Toprol XL) 50 mg PO DAILY Heart Disease/Condition 09/17/23
omeprazole 40 mg capsule,delayed release 40 mg PO DAILYPRN PRN gerd 09/17/23
hydrocortisone 2.5 % topical cream 1 applic topical BID PRN itch #20 grams 09/20/23
magnesium oxide 500 mg PO DAILY Supplement #0 tabs 09/20/23
sodium chloride 1,000 mg soluble tablet 1,000 mg PO BID Supplement #60 tabs 09/20/23
Review of Systems
-
History Source: Patient
Constitutional: Denies Fever or Chills
EENT: Reports No Symptoms
Respiratory: Reports Trouble Breathing
Cardiac: Denies Chest Pain or Palpitations
Abdomen/GI: Denies Abdominal Pain, Nausea, Vomiting, Diarrhea or Constipated
: Reports No Symptoms
Musculoskeletal: Reports No Symptoms
Skin: Reports No Symptoms
Neurological: Reports No Symptoms
Endocrine: Reports No Symptoms
Hematologic/Lymphatic: Reports No Symptoms
Psych: Reports No Symptoms
Physical Exam
Vital Signs
Vital Signs
Temp Pulse Resp BP Pulse Ox
98.9 F 77 19 97/53 96
10/30/23 08:57 10/30/23 14:15 10/30/23 14:15 10/30/23 14:00 10/30/23 14:15
Physical Exam
General: Appears Chronically Ill
HEENT: NormoCephalic, Anicteric, Atraumatic and Oxygen
Respiratory: Wheezes
Cardiac: S1/S2 and Regular Rhythm; No Murmur
GI: Soft, Non Tender, Non Distended, Normal Bowel Sounds and Ostomy
Musculoskeletal: No Clubbing, No Cyanosis and No Edema
Skin: Warm; No Rash
Neuro: Awake and Alert
Psych: Calm
Laboratory Results
-
10/30/23 09:49
10/30/23 09:49
Laboratory Results
Total Bilirubin 0.8 mg/dl (0.2-1.3) 10/30/23 09:49
AST 87 U/L (14-36) H 10/30/23 09:49
ALT 105 U/L (0-35) H 10/30/23 09:49
Alkaline Phosphatase 165 U/L (38-126) H 10/30/23 09:49
Troponin I < 0.012 ng/ml 10/30/23 09:49
Impression/Plan
-
Patient is a 73-year-old female
Acute hypoxemic respiratory failure--multifactorial--patient does have history of lung cancer, likely COPD exacerbation as trigger--patient on unknown amount of oxygen as not documented--wean as able--admit to telemetry--start Decadron 4 mg IV every
6 hours, continue inhalers/nebs--if no improvement consult pulmonary
Hypokalemia/hypomagnesemia--replete as needed
Hyponatremia--chronic--continue salt repletion
Seizure disorder--continue Trileptal/phenobarbital
Hyperlipidemia--continue Crestor
Chronic obstructive pulmonary disease--continue Spiriva, Breo
Lung cancer with recurrent pleural effusion likely metastatic--continue Pleurx catheter---continue Krazati (immunotherapy)
Vitamin B12 deficiency--continue B12 supplements
Essential hypertension--continue Toprol and lisinopril with holding parameters
Crohn's disease with ostomy--patient has diarrhea chronically--continue Imodium
DVT prophylaxis
CODE STATUS--full code
[2023-10-30] MEDS: KCL 40 MEQ PO (14:56)
[2023-10-30] MEDS: MAGNESIUM SULFATE 50 IV (14:59)
--- NOTE | 2023-10-30 17:45 | PTCARENOTE ---
Received patient from ER at 1745, awake alert oriented. Denies any pain or discomfort. + MUH[place], is on O2 at 2LPM via [place]. Oriented to room, ordered dinner. Resting comfortably at present .
[2023-10-30] MEDS: DECADRON 4 MG IV ×2 (18:25→23:10)
[2023-10-30] MEDS: LUMINAL 64.7999999999999972 MG PO (18:27)
[2023-10-30] MEDS: CRESTOR 5 MG PO (18:27)
[2023-10-30] MEDS: RESTASIS 0.05% OPHTHALMIC EMULSION 1 DROPS BOTH EYES (19:50)
[2023-10-30] MEDS: NON-FORMULARY ITEM 600 MG PO (19:51)
[2023-10-30] MEDS: MUCINEX 600 MG PO (19:51)
[2023-10-30] MEDS: SODIUM CHLORIDE 1 GRAM PO (19:51)
[2023-10-31] VITALS (8 sets, daily range): BP systolic 107–126; BP diastolic 54–68; PULSE 85; O2SAT 94; BMI 19.8
[2023-10-31] MEDS: DECADRON 4 MG IV ×2 (06:20→12:03)
[2023-10-31] MEDS: IMODIUM 2 MG PO ×2 (06:20→11:40)
[2023-10-31] MEDS: SYMBICORT 160/4.5 MCG INHALER 2 PUFF INH ×2 (08:15→20:12)
[2023-10-31] MEDS: SPIRIVA RESPIMAT 2.5 MCG 2 PUFF INH (08:15)
[2023-10-31 08:27] LABS: Blood Urea Nitrogen 20 mg/dl (7-17); Calcium 8.3 mg/dl (8.4-10.2); Carbon Dioxide 24 mmol/L (22-30); Chloride 98 mmol/L (98-107); Estimated Creatinine Clearance 67 ml/min; Glucose 133 mg/dl (70-99); Sodium 130 mmol/L (135-145); eGFR > 60.00
[2023-10-31] MEDS: NON-FORMULARY ITEM 600 MG PO ×2 (08:57→21:02)
[2023-10-31] MEDS: RESTASIS 0.05% OPHTHALMIC EMULSION 1 DROPS BOTH EYES ×2 (08:58→21:01)
[2023-10-31] MEDS: ZESTRIL 2.5 MG PO (08:58)
[2023-10-31] MEDS: TOPROL XL 50 MG PO (08:58)
[2023-10-31] MEDS: LUVOX 100 MG PO (08:58)
[2023-10-31] MEDS: MUCINEX 600 MG PO ×2 (08:58→21:03)
[2023-10-31] MEDS: SODIUM CHLORIDE 1 GRAM PO ×2 (08:58→21:01)
[2023-10-31] MEDS: MAGNESIUM OXIDE 500 MG PO (08:58)
--- NOTE | 2023-10-31 10:21 | CM ---
Per chart review patient last at 09/20/23 and patient was discharged at that time with [facility] and [facility]. Previously patient reported that she lived alone in a 2 story home with no DME. Patient had not been driving but had her
license. Patient plan is to go home with Dr. Cortez and [facility] as her pharmacy. CM will continue to follow for discharge planning needs.
Plan; home with home O2 watch for home health care
[2023-10-31 13:36] LABS: Magnesium 1.6 mg/dl (1.6-2.3)
--- NOTE | 2023-10-31 14:39 | W.PN.HOSP.TC ---
Today's Communication/Plan
-
replete mag
decrease steroids
Assessment / Plan
Assessment / Plan
Patient is a 73-year-old female
Acute hypoxemic respiratory failure--multifactorial--patient does have history of lung cancer, likely COPD exacerbation as trigger--off O2---decrease Decadron to 2 mg IV every 6 hours, continue inhalers/nebs
Hypokalemia/hypomagnesemia--replete as needed
Hyponatremia--chronic--continue salt repletion
Seizure disorder--continue Trileptal/phenobarbital
Hyperlipidemia--continue Crestor
Chronic obstructive pulmonary disease--continue Spiriva, Breo
Lung cancer with recurrent pleural effusion likely metastatic--continue Pleurx catheter---continue Krazati (immunotherapy)
Vitamin B12 deficiency--continue B12 supplements
Essential hypertension--continue Toprol and lisinopril with holding parameters
Crohn's disease with ostomy--patient has diarrhea chronically--continue Imodium
DVT prophylaxis
CODE STATUS--full code
anticipate d/c tomorrow AM
Anticipated Discharge: Within 24 hours
Subjective/Interval History
-
Date of Service: October 31, 2023
pt anxious to go home but pulse ox drops to 89% with ambulation--has O2 at home
Objective Data
-
Labs:
Laboratory Results
10/31/23
06:30
Sodium 130 L
Potassium 4.0
Chloride 98
Carbon Dioxide 24
BUN 20 H
Creatinine 0.5 L
Glucose 133 H
Calcium 8.3 L
Vital Signs:
max temp for 24 hours
10/31/23
07:30
Temp 98.1 F
Vital Signs
Temp Pulse Resp BP Pulse Ox
97.8 F 83 18 108/59 95
10/31/23 12:02 10/31/23 12:02 10/31/23 12:02 10/31/23 12:02 10/31/23 12:02
I&O
10/30/23 10/31/23 11/01/23
06:59 06:59 06:59
Intake Total 1000 / 1000
Balance 1000 / 1000
Review of Systems
-
All other systems: Reviewed and negative
Physical Exam
-
General: Appears Chronically Ill
HEENT: Normocephalic and Atraumatic; Negative Oxygen
Respiratory: Clear to Auscultation and Decreased Breath Sounds; Negative Wheezes, Rales or Rhonchi
Cardiac: Regular Rhythm and S1/S2; Negative Murmur
GI: Soft, Nontender, Nondistended and Normal Bowel Sounds
Musculoskeletal: No Clubbing, No Cyanosis and No Edema
Skin: Warm
Neuro: Awake
Psych: Calm
[2023-10-31] MEDS: MAGNESIUM SULFATE 50 IV (15:14)
--- NOTE | 2023-10-31 15:17 | PTOTSP ---
Patient with good insight into safety with transfers, ambulation and elevations without use of AD for balance. Good insight into incentive breathing as well and increased saturations to 91% after session.
Does not currently demonstrate need for continued skilled therapy and will be discharged at this time. If needs change, please re-consult.
[2023-10-31] MEDS: DECADRON 2 MG IV ×2 (16:59→23:29)
[2023-10-31] MEDS: ATIVAN 0.5 MG PO (17:00)
[2023-10-31] MEDS: LUMINAL 64.7999999999999972 MG PO (17:00)
[2023-10-31] MEDS: LOVENOX 40 MG SC (17:00)
[2023-10-31] MEDS: CRESTOR 5 MG PO (17:00)
[2023-11-01 04:12] VITALS: BMI 19.8
[2023-11-01 04:14] VITALS: BP 143/86
[2023-11-01] MEDS: DECADRON 2 MG IV (05:56)
[2023-11-01] MEDS: FLUSH (NSS) 1 FLUSH IV (05:57)
[2023-11-01 07:00] LABS: Blood Urea Nitrogen 23 mg/dl (7-17); Calcium 8.5 mg/dl (8.4-10.2); Carbon Dioxide 24 mmol/L (22-30); Chloride 99 mmol/L (98-107); Estimated Creatinine Clearance 67 ml/min; Glucose 130 mg/dl (70-99); Magnesium 1.7 mg/dl (1.6-2.3); Sodium 130 mmol/L (135-145); eGFR > 60.00
[2023-11-01] MEDS: IMODIUM 2 MG PO (07:15)
[2023-11-01 07:30] VITALS: BP 130/74
[2023-11-01] MEDS: NON-FORMULARY ITEM 600 MG PO (08:22)
[2023-11-01] MEDS: SYMBICORT 160/4.5 MCG INHALER 2 PUFF INH (08:22)
[2023-11-01] MEDS: SODIUM CHLORIDE 1 GRAM PO (08:22)
[2023-11-01] MEDS: SPIRIVA RESPIMAT 2.5 MCG 2 PUFF INH (08:22)
[2023-11-01] MEDS: MAGNESIUM OXIDE 500 MG PO (08:23)
[2023-11-01] MEDS: ZESTRIL 2.5 MG PO (08:23)
[2023-11-01] MEDS: TOPROL XL 50 MG PO (08:23)
[2023-11-01] MEDS: LUVOX 100 MG PO (08:23)
[2023-11-01] MEDS: RESTASIS 0.05% OPHTHALMIC EMULSION 1 DROPS BOTH EYES (08:23)
[2023-11-01] MEDS: MUCINEX 600 MG PO (08:23)
--- NOTE | 2023-11-01 08:38 | W.PN.HOSP.TC ---
Today's Communication/Plan
-
d/c
Assessment / Plan
Assessment / Plan
Patient is a 73-year-old female
Acute hypoxemic respiratory failure--multifactorial--patient does have history of lung cancer, likely COPD exacerbation as trigger--off O2---decrease Decadron to 2 mg IV every 6 hours--change to oral prednisone at d/c with quick taper--continue
inhalers/nebs
Hypokalemia/hypomagnesemia--replete as needed
Hyponatremia--chronic--continue salt repletion
Seizure disorder--continue Trileptal/phenobarbital
Hyperlipidemia--continue Crestor
Chronic obstructive pulmonary disease--continue Spiriva, Breo
Lung cancer with recurrent pleural effusion likely metastatic--continue Pleurx catheter---continue Krazati (immunotherapy)
Vitamin B12 deficiency--continue B12 supplements
Essential hypertension--continue Toprol and lisinopril with holding parameters
Crohn's disease with ostomy--patient has diarrhea chronically--continue Imodium
DVT prophylaxis
CODE STATUS--full code
d/c today
Anticipated Discharge: Today
Subjective/Interval History
-
Date of Service: November 01, 2023
pt ready for d/c--has appointment at [facility] tomorrow
Objective Data
-
Labs:
Laboratory Results
11/01/23
05:25
Sodium 130 L
Potassium 4.0
Chloride 99
Carbon Dioxide 24
BUN 23 H
Creatinine 0.4 L
Glucose 130 H
Calcium 8.5
Vital Signs:
max temp for 24 hours
24
15:22
Temp 98.2 F
Vital Signs
Temp Pulse Resp BP Pulse Ox
97.6 F 74 16 130/74 97
11/01/23 07:30 11/01/23 08:23 11/01/23 07:30 11/01/23 08:23 11/01/23 07:30
I&O
10/31/23 11/01/23 11/02/23
06:59 06:59 06:59
Intake Total 1000 / 1000 1680 / 1680
Balance 1000 / 1000 1680 / 1680
Review of Systems
-
All other systems: Reviewed and negative
Physical Exam
-
General: Well Developed, Well Nourished and No Apparent Distress
HEENT: Normocephalic and Atraumatic; Negative Oxygen
Respiratory: Clear to Auscultation and Other (PleurX cath); Negative Wheezes, Rales, Rhonchi or Crackles
Cardiac: Regular Rhythm and S1/S2; Negative Murmur
GI: Soft, Nontender, Nondistended and Normal Bowel Sounds
Musculoskeletal: No Clubbing, No Cyanosis and No Edema
Neuro: Awake and Alert
Psych: Calm
--- NOTE | 2023-11-01 08:54 | CM ---
Patient seen at bedside with physician. CM sent referral 10/31 to [facility] and they will follow for nursing care at home. Patient intrested in having information about options with infusion center about magnesium IV. CM spoke with Infusion
center and they will accept orders from PCP or specialists but do not have any physicians to place orders at center. Physician updated. Patient family to provide transportation. CM will continue to follow for discharge planning needs.
Plan; home with [facility]
--- NOTE | 2023-11-01 17:39 | W.DCSUMMARY ---
Discharge Summary
Discharge Data
Date of Admission: 10/30/23
Date of Discharge: 11/01/23
-
Pending Results: No
Hospital Course
Primary care physician : Marilyn Cortez
Principal Discharge diagnosis : Acute hypoxemic respiratory failure, hypokalemia/hypomagnesemia/hyponatremia
Chronic Discharge diagnosis : Seizure disorder, hyperlipidemia, chronic obstructive pulmonary disease, lung cancer with recurrent pleural effusion likely metastatic, vitamin B12 deficiency, essential hypertension, Crohn's disease with ostomy
Hospital Course : Patient is a 73-year-old female with a history of lung cancer and recurrent pleural effusion with Pleurx catheter who was doing well until the Sunday prior to admission when her oxygen level dropped. She denied chest pain, fevers,
or chills. She denied cough. She did admit to being winded when going up the steps. She stated that her family doctor or lung cancer doctor thinking of putting her back on Decadron and taking out the Pleurx catheter. Patient's workup found her
to require oxygen as well as needing magnesium and potassium repletion. Patient was admitted.
Problem #1: Acute hypoxemic respiratory failure. This was likely multifactorial. Patient does have a history of lung cancer but this is more likely a chronic obstructive pulmonary disease exacerbation. Patient was able to be weaned off. She was
started on IV Decadron which has been decreased. Upon discharge, prednisone was initiated; however nursing reported to me that her outpatient doctor started her on Decadron. I have since canceled the prednisone and told her to read resume her
Decadron as previously ordered.
Problem #2: Hypokalemia/hypomagnesemia/hyponatremia. Patient is on salt tablets. Sodium was 130 and stayed in that range. Potassium was repleted. Hypomagnesemia is likely the driving factor of all of this. Patient's magnesium on admission was
0.9. Patient does have Crohn's disease and has an ostomy and was taking oral magnesium as well. Oral magnesium can increase bowel movements and give diarrhea therefore this is all likely GI losses. I am not convinced that the patient will do well
on oral magnesium. It is likely she will need IV infusions weekly of the magnesium to try to keep her level approximately 2. She has an appointment with her [place] oncologist tomorrow November 02, 2023 and she will discuss this with them. Case
management did speak with the infusion center. They will accept orders from primary physician or specialists but do not have any physicians on site to place orders at the center. Patient's oncologist can write an order for her to get the infusion
of magnesium here at our infusion center rather than going down to [place]. It is unclear whether the patient's oncologist would be willing to do so.
Problem #3: All other medical issues. These include Seizure disorder, hyperlipidemia, chronic obstructive pulmonary disease, lung cancer with recurrent pleural effusion likely metastatic, vitamin B12 deficiency, essential hypertension, Crohn's
disease with ostomy. These medical issues were stable during her hospitalization. Medications were continued as able.
Patient is stable for discharge home at this time. If there are any questions regarding this dictation or her hospital stay, please not hesitate to call. Our office number is [phone].
Discharge Plan
-
Patient Disposition: Home with Home Care
Discharge Diagnosis/Procedures: Acute hypoxemic respiratory failure multifactorial, hypokalemia/hypomagnesemia/hyponatremia, seizure disorder, hyperlipidemia, chronic obstructive pulmonary disease, lung cancer with recurrent pleural effusion and
Pleurx catheter, vitamin B12 deficiency, essential hypertension, Crohn's disease with ostomy
Condition: Good
Diet: As tolerated and Regular
Activity: As tolerated
Driving Restrictions: As prior to admission
Bathing Restrictions: None
Activity Restrictions/Additional Instructions:
Outpatient prednisone that I prescribed will be stopped. Patient has informed me that her outpatient doctor has prescribed Decadron. She can continue that.
Referrals:
Marilyn Cortez MD [Family Provider] - in less than 1 week
Prescriptions:
New
guaifenesin 600 mg Tablet Extended Release 12hr
600 mg PO Q12 Qty: 0 0RF
Continued
lisinopril 5 MG tablet
2.5 mg PO DAILY
lorazepam 1 MG tablet
0.5 mg PO QPM
cyanocobalamin (vitamin B-12) 1,000 MCG tablet
1,000 mcg IM MONTHLY
phenobarbital 64.8 MG tablet
64.8 mg PO QPM
Patient Comments:
09/17/23- patient weening off
fluvoxamine 50 MG tablet
100 mg PO DAILY
cyclosporine [Restasis] 10 DROPS dropperette
1 drp BOTH EYES BID
rosuvastatin [Crestor] 5 mg Tablet
5 mg PO QPM
tiotropium bromide [Spiriva with HandiHaler] 18 mcg Capsule, W/Inhalation Device
1 cap INHALATION R DAILY
fluticasone furoate-vilanterol [Breo Ellipta] 100-25 mcg/dose Blister With Device
1 inh INHALATION R DAILY
metoprolol succinate [Toprol XL] 50 mg Tablet Extended Release 24 Hr
50 mg PO DAILY
loperamide 2 mg Tablet
2 mg PO Q4HPRN PRN (Reason: diarrhea)
omeprazole 40 mg Capsule,Delayed Release(Dr/Ec)
40 mg PO DAILYPRN PRN (Reason: gerd)
Krazati 200 mg Tablet
600 mg PO BID
magnesium oxide 500 mg Tablet
500 mg PO DAILY Qty: 0 0RF
sodium chloride 1,000 mg tablet,soluble
1,000 mg PO BID Qty: 60 0RF
hydrocortisone 2.5 % cream
1 applic topical BID PRN (Reason: itch) Qty: 20 0RF
Discharge Orders:
Discharge Patient (As Directed); Ordered 11/01/23
Ordered By: Lavern Puente
Discharge Date and Time
Discharge Date/Time: 11/01/23 09:56
== END 2023-11-01 09:56 | disposition home health service (06) | DRG 189 ==
LOC: 4 WEST ACU 14:41
PROVIDERS: Physician Assistant; ADMITTING PHYSICIAN Internal Medicine; EMERGENCY PHYSICIAN Emergency Medicine; FAMILY PHYSICIAN Internal Medicine
DX: J96.01 Acute respiratory failure with hypoxia (principal); E87.1 Hypo-osmolality and hyponatremia; C34.90 Malignant neoplasm of unspecified part of unspecified bronchus or lung; K50.90 Crohn's disease, unspecified, without complications; J44.1 Chronic obstructive pulmonary disease with (acute) exacerbation; J91.0 Malignant pleural effusion; Z87.891 Personal history of nicotine dependence; E87.6 Hypokalemia; E83.42 Hypomagnesemia; G40.909 Epilepsy, unspecified, not intractable, without status epilepticus; E78.5 Hyperlipidemia, unspecified; E53.8 Deficiency of other specified B group vitamins; Z85.118 Personal history of other malignant neoplasm of bronchus and lung; I10 Essential (primary) hypertension
CPT/HCPCS: 70553; 71046; 71275; 80048; 80053; 81003; 81015; 83735; 83880; 84443; 84484; 85025; 85379; 93005; 94640; 96361; 96365; 96375; 97116; 97162; 97166; 99285; A9575; Q9967

== ENCOUNTER 2023-11-13 09:09 | Outpatient (RCR) | payer MEDICARE, OTHER, SELFPAY ==
[2023-11-09 08:53] VITALS: BP 151/76
[2023-11-09 09:19] LABS: Magnesium 1.1 mg/dl (1.6-2.3)
[2023-11-09] MEDS: MAGNESIUM SULFATE 106 GRAMS IV (09:38)
[2023-11-13 09:23] VITALS: BP 119/60
[2023-11-13] MEDS: MAGNESIUM SULFATE 106 GRAMS IV (09:41)
[2023-11-13 10:53] LABS: Blood Urea Nitrogen 38 mg/dl (7-17); Calcium 8.9 mg/dl (8.4-10.2); Carbon Dioxide 21 mmol/L (22-30); Chloride 103 mmol/L (98-107); Glucose 163 mg/dl (70-99); Magnesium 0.9 mg/dl (1.6-2.3); Potassium 3.5 mmol/L (3.5-5.1); Sodium 132 mmol/L (135-145); eGFR > 60.00
[2023-11-13] MEDS: MAGNESIUM SULFATE 102 GRAMS IV (12:42)
== END 2023-11-13 14:57 | disposition home or self-care (01) ==
LOC: OID 09:09
PROVIDERS: Student in an Organized Health Care Education/Training Program; ATTENDING PHYSICIAN Internal Medicine
DX: E83.42 Hypomagnesemia (principal)
CPT/HCPCS: 36415; 80048; 82570; 83735; 96365; 96366

== ENCOUNTER 2023-11-21 08:34 | Emergency (ER) | payer MEDICARE, OTHER, SELFPAY ==
[2023-11-21 08:36] VITALS: BP 145/68; BMI 22.2
[2023-11-21 08:41] VITALS: BP 145/68
--- NOTE | 2023-11-21 08:41 | ED.GENMED ---
History of Present Illness
General
Chief Complaint: Weakness
Time Seen by Provider: 11/21/23 08:41
History of Present Illness
History of Present Illness:
HPI: Patient came in by ambulance due to weakness. She does have chronic shortness of breath but this is not necessarily anything worse. However, she is found to be 87% on room air upon arrival. She does have oxygen at home that she rents as she
said that Medicare did not cover the cost because her sats have been above 88%. She has no focal concerns but reports of generalized weakness. She has no chest pain. She was to see her basket assembler at [facility] today but was so weak that she could
not go there. She is also requesting a repeat MRI of the brain because of the weakness. She has been getting magnesium infusions as an outpatient.
EXAM:
GENERAL: Appears rather thin and generally weak
HEENT: Slightly dry oral mucosa
CARDIOVASCULAR: No murmurs, tachycardic heart rate with rhythm, No chest wall tenderness
PULMONARY: No respiratory distress, breath sounds are equally decreased
ABDOMEN: Soft with no peritoneal signs, no tenderness
NEUROLOGIC: Good strength all extremities, no coordination deficits
PSYCHIATRIC: Appropriate mental status, normal insight and judgement
EXTREMITIES: Nontender, no edema, moves all extremities equally
SKIN: No rash, no lesions
ED COURSE:
8:45 AM: I initially evaluated patient
NUMBER AND COMPLEXITY OF PROBLEMS ADDRESSED AT THE ENCOUNTER
� Chronic conditions affecting care: COPD/former smoker quit 1994, lung cancer, high blood pressure, hyperlipidemia, Crohn's with ileostomy, anxiety
� Acute Exacerbation and/or Progression of Chronic Illness: This is a subacute problem
� Differential Diagnosis includes: Failure to thrive, progression of lung cancer, hypomagnesemia, hyponatremia, hypokalemia, dehydration, COPD exacerbation
AMOUNT AND/OR COMPLEXITY OF DATA TO BE REVIEWED AND ANALYZED
� I performed an independent evaluation of and my interpretation is:
EKG: Sinus 104, leftward axis deviation, nonspecific ST abnormality, poor R wave progression but this is not significantly changed from 10/30/2023
CT:
X-rays: I reviewed chest x-ray that shows small right pleural effusion overall improved with no clear sign of pulmonary edema or infiltrate
Laboratory Studies: Potassium 3.1, magnesium 1.3, sodium 132, hemoglobin 11.0
Other:
� Review of other/old records: I reviewed the old records. The patient was here less than 1 month ago admitted for acute hypoxic respiratory failure felt to be multifactorial as well as hypokalemia, hypomagnesemia, and
hyponatremia. At that time it was documented the patient was on salt tablet and when she came in last time her magnesium was only 0.9. I did review the MRI of the brain with and without contrast from last month that showed no mass, there was
'mild generalized diffuse smooth dural thickening and generalized homogeneous enhancement, slightly more pronounced, differential includes intracranial hypotension, infectious or inflammatory conditions, iatrogenic, or metastatic carcinomatosis',
there is no infarct. Old records also reviewed that the patient has had high resting heart rates primarily in the 90s. She had a CTA last month that was negative for PE.
� Clinical information was obtained by an independent historian: I spoke to EMS
� Prescriptions/Medications Considered but not given: See below
� Further testing considered but not performed:
RISK OF COMPLICATIONS AND/OR MORBIDITY OR MORTALITY OF PATIENT MANAGEMENT
� Social determinants of health affecting care:
� Discussion with other providers: Since patient strongly wants another MRI of the brain, I communicated with Dr. Justice for authorization however he agrees that this would not be indicated at this time.
� Escalation of care including admission/observation vs risk of discharge considered: Patient is found to be hypoxic with room air sat of 87%. Her main complaint is generalized weakness. Chest x-ray appears improved. Mild
electrolyte abnormalities noted. I IV replacement�she refused citing that she is already getting these as an outpatient. I also offered oral replacement�she has declined. She questions if some of her symptoms may be related to anxiety. Regarding
the hypoxia, she does have oxygen at home. I advised her to try to keep the oxygen sats in the low 90% range.
Past History
Past History
ED Past Medical History: Cancer, COPD, HTN, Seizures and Other (Crohn's disease, anxiety)
ED Past Surgical History: Bowel resection (For Crohn's disease with a subsequent colostomy), Cholecystectomy and Other (Partial lung lobectomy)
Social History
Tobacco: Former smoker
Alcohol: None
Drug: None
Personal:
Living: alone
Employment: Employed
Family History
Family History: Other (No significant)
Phy Exam
Physical Exam
Physical Exam:
See HPI
Course
Orders/Labs/Results
Orders:
Orders
11/21/23 08:44
Electrocardiogram (*1) Urgent
Reason for Study: Bradycardia / Tachycardia
EKG- Treatment ONCE
CR Chest Portable - 1 View Urgent
Comment:
Reason For Exam: lung cancer, pleural effusion, copd
Reason Study Needs to be Portable: Patient Unstable
11/21/23 08:53
Basic Metabolic Panel Urgent
Complete Blood Count/With Diff Urgent
Magnesium Urgent
11/21/23 09:08
Phenobarbital [S] Urgent
Abnormal Lab Results
11/21/23
08:53
Hgb 11.0 L g/dL
(12.0-16.0)
Hct 33.5 L %
(37.0-47.0)
MCV 75.8 L fL
(81.0-99.0)
MCH 24.9 L pg
(27.0-31.0)
MCHC 32.8 L g/dL
(33.0-37.0)
RDW 17.8 H %
(11.5-14.5)
Plt Count 114 L 10^3/uL
(130-400)
Abs Immat Gran (auto) 0.1 H 10^3/uL
(0-0.05)
Absolute Lymphs (auto) 0.8 L 10^3/uL
(1.2-3.4)
Immature Gran % 0.9 H %
(0-0.5)
Neutrophils % 80.6 H %
(42.2-75.2)
Lymphocytes % 14.6 L %
(20.5-51.1)
Sodium 132 L mmol/L
(135-145)
Potassium 3.1 L mmol/L
(3.5-5.1)
BUN 26 H mg/dl
(7-17)
Glucose 124 H mg/dl
(70-99)
Calcium 8.3 L mg/dl
(8.4-10.2)
Magnesium 1.3 L mg/dl
(1.6-2.3)
11/21/23 08:53
11/21/23 08:53
Vital Signs
Initial and Last Documented VS:
Initial Vital Signs
Temp Pulse Resp BP Pulse Ox
98.1 F 122 18 145/68 87
11/21/23 08:36 11/21/23 08:36 11/21/23 08:36 11/21/23 08:36 11/21/23 08:36
Last Documented Vital Signs
Temp Pulse Resp BP Pulse Ox
98.1 F 98 28 132/78 99
11/21/23 08:36 11/21/23 09:30 11/21/23 09:30 11/21/23 09:00 11/21/23 09:30
*Critical Care Note
Total Time (30-74mins, 75-104mins- exclusive of procedures): Not Applicable
ED Attending Note
-
Portions of this chart may have been created with voice recognition software.� Occasional wrong word or��sound alike� substitutions may have occurred due to the inherent limitations of voice recognition software.
Discharge Plan
Departure
Patient Disposition: Home (Routine Discharge)
Date of Disposition: 11/21/23
Time of Disposition: 09:58
Patient with high blood pressure during this ER visit?: Yes
Discharge Problem:
Weakness
Prescriptions:
No Action
lisinopril 5 MG tablet
2.5 mg PO DAILY
cyanocobalamin (vitamin B-12) 1,000 MCG tablet
1,000 mcg IM MONTHLY
phenobarbital 64.8 MG tablet
64.8 mg PO QPM
Patient Comments:
09/17/23- patient weening off
fluvoxamine 50 MG tablet
100 mg PO DAILY
cyclosporine [Restasis] 10 DROPS dropperette
1 drp BOTH EYES BID
rosuvastatin [Crestor] 5 mg Tablet
5 mg PO QPM
tiotropium bromide [Spiriva with HandiHaler] 18 mcg Capsule, W/Inhalation Device
1 cap INHALATION R DAILY
fluticasone furoate-vilanterol [Breo Ellipta] 100-25 mcg/dose Blister With Device
1 inh INHALATION R DAILY
metoprolol succinate [Toprol XL] 50 mg Tablet Extended Release 24 Hr
50 mg PO DAILY
loperamide 2 mg Tablet
2 mg PO Q4HPRN PRN (Reason: diarrhea)
Krazati 200 mg Tablet
600 mg PO BID
sodium chloride 1,000 mg tablet,soluble
1,000 mg PO BID Qty: 60 0RF
lorazepam [Ativan] 0.5 mg Tablet
0.5 mg PO HS PRN (Reason: anxiety)
ascorbic acid (vitamin C) [Vitamin C] 500 mg Tablet
500 mg PO DAILY
loratadine [Claritin] 10 mg Tablet
10 mg PO DAILY
Referrals:
Marilyn Cortez MD [Family Provider] -
Activity Restrictions/Additional Instructions:
Your potassium and magnesium levels are both slightly low. Sodium is minimally low at 132. Continue getting IV infusions and consider taking increased amount of banana/potato/tomatoes which are high in potassium. The chest x-ray is improved
today. There is no change in her EKG. I generally only recommend enough oxygen to keep the oxygen saturation levels around 90 to 94%. It is not necessarily a good thing to be at 100%. Return here if worse. Follow-up with your doctors at [facility].
Interventions
Interventions:
*General Assessment Last Done: 11/21/23 08:36
*Neglect/Abuse Screening Last Done: 11/21/23 08:36
ED- Fall Risk Assessment Last Done: 11/21/23 08:52
*ED COVID-19 Vaccine History Last Done: 11/21/23 08:36
ED- Cardiac Assessment Last Done: 11/21/23 08:36
ED- Neurological Assessment Last Done: 11/21/23 08:36
ED- Pulmonary Assessment Last Done: 11/21/23 08:36
[2023-11-21 09:00] VITALS: BP 132/78
[2023-11-21 09:13] LABS: % Basophils 0.2 % (0-2); % Eosinophils 0.2 % (0-6); % Immature Granulocytes 0.9 % (0-0.5); % Lymphocytes 14.6 % (20.5-51.1); % Monocytes 3.5 % (1.7-9.3); % Neutrophils 80.6 % (42.2-75.2); Absolute Immature Granulocytes 0.1 10^3/uL (0-0.05); Absolute Lymphocytes 0.8 10^3/uL (1.2-3.4); Absolute Monocytes 0.2 10^3/uL (0.1-0.6); Absolute Neutrophils 4.6 10^3/uL (1.4-6.5); Hematocrit 33.5 % (37.0-47.0); Mean Corp Hgb Conc. 32.8 g/dL (33.0-37.0); Mean Corpuscular Hgb 24.9 pg (27.0-31.0); Mean Corpuscular Volume 75.8 fL (81.0-99.0); Mean Platelet Volume 9.9 fL (7.4-10.4); Nucleated Red Blood Cells % 0 %; Platelet Count 114 10^3/uL (130-400); Red Blood Cell Count 4.42 10^6/uL (4.20-5.40); Red Cell Dist. Width 17.8 % (11.5-14.5); White Blood Cell Count 5.7 10^3/uL (4.8-10.8)
[2023-11-21 09:30] LABS: Blood Urea Nitrogen 26 mg/dl (7-17); Calcium 8.3 mg/dl (8.4-10.2); Carbon Dioxide 23 mmol/L (22-30); Chloride 101 mmol/L (98-107); Estimated Creatinine Clearance 68 ml/min; Glucose 124 mg/dl (70-99); Magnesium 1.3 mg/dl (1.6-2.3); Potassium 3.1 mmol/L (3.5-5.1); Sodium 132 mmol/L (135-145); eGFR > 60.00
[2023-11-21 10:26] VITALS: BP 127/75
== END 2023-11-21 10:42 | disposition home or self-care (01) ==
LOC: EMR 08:34
PROVIDERS: EMERGENCY PHYSICIAN Emergency Medicine; FAMILY PHYSICIAN Internal Medicine
DX: R53.1 Weakness (principal); I10 Essential (primary) hypertension; E78.5 Hyperlipidemia, unspecified; J44.9 Chronic obstructive pulmonary disease, unspecified; Z87.891 Personal history of nicotine dependence
CPT/HCPCS: 99284; 71045; 80048; 80184; 83735; 85025; 93005

== ENCOUNTER 2023-11-22 22:07 | Inpatient (IN) | payer MEDICARE, OTHER, SELFPAY ==
[2023-11-22 13:33] VITALS: BP 118/74
[2023-11-22 18:46] LABS: % Immature Granulocytes 0.6 % (0-0.5); % Lymphocytes 13.1 % (20.5-51.1); % Monocytes 4.8 % (1.7-9.3); % Neutrophils 81.5 % (42.2-75.2); Absolute Lymphocytes 0.7 10^3/uL (1.2-3.4); Absolute Monocytes 0.2 10^3/uL (0.1-0.6); Hematocrit 31.7 % (37.0-47.0); Hemoglobin 10.5 g/dL (12.0-16.0); Mean Corp Hgb Conc. 33.1 g/dL (33.0-37.0); Mean Corpuscular Hgb 24.7 pg (27.0-31.0); Mean Corpuscular Volume 74.6 fL (81.0-99.0); Mean Platelet Volume 9.5 fL (7.4-10.4); Nucleated Red Blood Cells % 0 %; Platelet Count 108 10^3/uL (130-400); Red Blood Cell Count 4.25 10^6/uL (4.20-5.40)
--- NOTE | 2023-11-22 18:47 | ED.GENMED ---
History of Present Illness
<Gabrielle Gotti PA-C - Last Filed: 11/22/23 21:10>
General
Chief Complaint: Breathing Problem
Source: patient
Exam Limitations: none
Time Seen by Provider: 11/22/23 17:29
Nursing documentation reviewed up to this point in time: agreed with
Travel History
Have you had any contact with someone who has COVID-19?: No
Do you have any symptoms of coronavirus? Fever > 100 degrees, chills, cough, shortness of breath, sore throat, loss of taste or smell, muscle aches, or headache?: No
History of Present Illness
History of Present Illness:
pt is a 73 y/o F with h/o lung cancer, followed at [place] [facility]
has pleuridesis/chest tube
COPD
has home o2 but doesn't normally need to use it
goes to the infusion center twice a week for magnesium and fluids infusions which help her energy level but the past week she has just been generally weak despite these infusions
she checks her home o2 level and found it to be in the 70s and came up to 90s on her 2L
she came here yesterday and had labs and cxr and was sent home
she apparently was stable on her o2
pt says she has continued to feel weak and so she spoke with her oncologist from [place] who recommended she come back and get CT for PE.
she has not had any vomiting, diarrhea, (has a colosctomy), fever, chest pain, sore throat
she feels very wiped out.
Past History
<Gabrielle Gotti PA-C - Last Filed: 11/22/23 21:10>
Past History
ED Past Medical History: Cancer, COPD, HTN, Seizures and Other (Crohn's disease, anxiety)
ED Past Surgical History: Bowel resection (For Crohn's disease with a subsequent colostomy), Cholecystectomy and Other (Partial lung lobectomy)
Social History
Tobacco: Former smoker
Alcohol: None
Drug: None
Personal:
Living: alone
Employment: Employed
Family History
Family History: Other (No significant)
Review of Systems
<TALAT Bryson Last Filed: 11/22/23 21:10>
Review of Systems
Allergies reviewed?: Yes
All Other Systems: Not applicable
Phy Exam
<TALAT Bryson Last Filed: 11/22/23 21:10>
Physical Exam
Physical Exam:
gENERAL: Alert , in no apparent distress, chronically ill
EYE: pupils equal and reactive
NECK: Supple
ENT: o/p clr, mmm.
CARDIAC: Regular rate and rhythm .
LUNGS: diminished R base, crackles; no wheezing, no sob, occ cough
pleurx catheter covered with dressing R lower chest
ABDOMEN: Soft, without focal tenderness, no r/g, no cvat, normal bowel sounds
colostomy in place
NEUROLOGICAL: Alert and oriented, no focal neuro deficits
SKIN: Warm and dry, skin intact.
MUSCULOSKELETAL: No edema, well perfused. neg denae's sign
PSYCH: Normal and appropriate interaction.
Scores
<TALAT Bryson Last Filed: 11/22/23 21:10>
Heart Failure Risk
Heart Failure Risk Score: Not Applicable
Course
<TALAT Bryson Last Filed: 11/22/23 21:10>
Orders/Labs/Results
Orders:
Orders
11/22/23 Dinner
Regular
11/22/23 18:33
Complete Blood Count/With Diff Urgent
Comprehensive Metabolic Panel Urgent
Magnesium Urgent
Comment: ADD ON
PT/INR [Prothrombin Time] Urgent
PTT Urgent
11/22/23 18:38
Electrocardiogram (*1) Urgent
Reason for Study: Shortness of Breath
CT Chest Pe Study Urgent
Comment:
Reason For Exam: lung ca, copd, hypoxia
EKG- Treatment ONCE
11/22/23 19:03
Urinalysis Reflex To Culture Urgent
Date Specimen was Collected: 11/22/23
Time Specimen was Collected: 19:01
Urine Microscopic Reflex Cult Urgent
11/22/23 19:32
Add On- LAB Urgent
Tests Added?: magnesium
11/22/23 19:38
COVID-19 Antigen Urgent
Source: Nasal Swab
Troponin I Urgent
Influenza A+B Rapid Molecular Urgent
MABLE Source: Nasal Swab
Specimen Description:
11/22/23 21:04
Piperacillin/Tazo 4.5 Gram [Zosyn] 4.5 gram in 100 ml IV NOW
11/22/23 21:39
Admit/Transfer Patient As Directed
Co-Sign Provider:
Level of Care: Inpatient admission
Assign to:: Medical/Surgical
Physician / Group: so[facility]
Diagnosis: pneumonia
Reason for Hospitalization: pneumonia
Expected length of stay greater than two midnights?: Yes
ELOS- Estimated Length of Stay in days: 2
I certify the patient meets the requirements for IP care: Yes
Code Status As Directed
Resuscitation Status: Do not resuscitate
Reached after discussion with pt or family/Healthcare POA: Yes
DNR Bracelet Application ONCE
11/22/23 21:40
Legionella Urinary Antigen Urgent
MABLE Source: Urine
Specimen Description:
MRSA Screen Routine
MABLE Source: Nose
Specimen Description:
Respiratory Culture/Gram Stain Urgent
MABLE Source: Sputum
Specimen Description:
Strep pneumoniae Antigen Urgent
MABLE Source: Urine
Specimen Description:
11/22/23 21:50
Magnesium Sulfate 1 grams 0.9% Sodium Chloride 100 ml [Nss] 100 ml IV NOW
11/22/23 22:00
Flush (0.9% Sodium Chloride) [Flush (Nss)] See Dose Instructions IV PER PROTOCOL
11/22/23 22:39
Fluvoxamine [Luvox] 100 mg PO HS
Levalbuterol Tartrate [Xopenex Hfa 45 Mcg Inhaler] 1 puff INH R Q6HPRN PRN
Lorazepam [Ativan] 1 mg PO BID PRN
VANCOMYCIN Pharmacy to Dose [VANCOCIN Pharmacy to Dose] 1 each Pharmacy To Prepare [Call Pharmacy To Prepare] 0 ml IV PER PROTOCOL
11/22/23 22:39
Activity As Directed
Activity Level: As Tolerated
Vital Signs As Directed
Frequency: Per unit guidelines
Xopenex Reason for Use As Directed
Reason for ordering Xopenex instead of Albuterol: tachy
DX Deep Vein Thrombosis Video Routine
11/22/23 22:51
Ondansetron HCl [Zofran] 8 mg PO [id number] PRN
11/22/23 23:13
Loperamide [Imodium] 2 mg PO Q4HPRN PRN
11/23/23 04:00
Piperacillin/Tazo 3.375 Gram [Zosyn] 3.375 gram in 50 ml IV Q6H
11/23/23 06:00
Complete Blood Count/With Diff IN AM
Comprehensive Metabolic Panel IN AM
Magnesium IN AM
11/23/23 08:00
Ascorbic Acid [Vitamin C] 500 mg PO DAILY
Budesonide/Formoterol 160/4.5 [Symbicort 160/4.5 Mcg Inhaler] 2 puff INH R BID
Fluvoxamine [Luvox] 50 mg PO DAILY
Heparin 5,000 units SC Q12
Lisinopril [Zestril] 2.5 mg PO DAILY
Loratadine [Claritin] 10 mg PO DAILY
Lorazepam [Ativan] 0.5 mg PO DAILY
Metoprolol Xl [Toprol Xl] 50 mg PO DAILY
Sodium Chloride 1 gram PO BID
Tiotropium [place] 2.5 Mcg [Spiriva Respimat 2.5 Mcg] 2 puff INH R DAILY
cycloSPORINE [Restasis 0.05% Ophthalmic Emulsion] 1 drops BOTH EYES BID
11/23/23 18:00
Phenobarbital [Luminal] 64.8 mg PO QPM
Rosuvastatin Calcium [Crestor] 5 mg PO QPM
12/22/23 08:00
Cyanocobalamin 1,000 mcg IM MONTHLY
Abnormal Lab Results
11/22/23 11/22/23
18:33 19:03
Hgb 10.5 L g/dL
(12.0-16.0)
Hct 31.7 L %
(37.0-47.0)
MCV 74.6 L fL
(81.0-99.0)
MCH 24.7 L pg
(27.0-31.0)
RDW 18.0 H %
(11.5-14.5)
Plt Count 108 L 10^3/uL
(130-400)
Absolute Lymphs (auto) 0.7 L 10^3/uL
(1.2-3.4)
Immature Gran % 0.6 H %
(0-0.5)
Neutrophils % 81.5 H %
(42.2-75.2)
Lymphocytes % 13.1 L %
(20.5-51.1)
Sodium 128 L mmol/L
(135-145)
BUN 19 H mg/dl
(7-17)
Creatinine 0.3 L mg/dL
(0.6-1.0)
Glucose 102 H mg/dl
(70-99)
Calcium 8.2 L mg/dl
(8.4-10.2)
Magnesium 1.4 L mg/dl
(1.6-2.3)
AST 78 H U/L
(14-36)
ALT 74 H U/L
(0-35)
Total Protein 5.8 L g/dl
(6.3-8.2)
Albumin 3.2 L g/dl
(3.5-5.0)
Urine Bilirubin 1+ A
(Negative)
Leukocyte Esterase Rfl Trace A
(Negative)
11/22/23 18:33
11/22/23 18:33
Vital Signs
Initial and Last Documented VS:
Initial Vital Signs
Temp Pulse Resp BP Pulse Ox
98.2 F 106 18 118/74 92
11/22/23 13:33 11/22/23 13:33 11/22/23 13:33 11/22/23 13:33 11/22/23 13:33
Last Documented Vital Signs
Temp Pulse Resp BP Pulse Ox
98.2 F 85 17 125/70 95
11/22/23 13:33 11/22/23 22:30 11/22/23 22:30 11/22/23 19:58 11/22/23 21:00
<Benigno Grewal, DO - Last Filed: 11/23/23 01:53>
Orders/Labs/Results
Orders:
Orders
11/22/23 Dinner
Regular
11/22/23 18:33
Complete Blood Count/With Diff Urgent
Comprehensive Metabolic Panel Urgent
Magnesium Urgent
Comment: ADD ON
PT/INR [Prothrombin Time] Urgent
PTT Urgent
11/22/23 18:38
Electrocardiogram (*1) Urgent
Reason for Study: Shortness of Breath
CT Chest Pe Study Urgent
Comment:
Reason For Exam: lung ca, copd, hypoxia
EKG- Treatment ONCE
11/22/23 19:03
Urinalysis Reflex To Culture Urgent
Date Specimen was Collected: 11/22/23
Time Specimen was Collected: 19:01
Urine Microscopic Reflex Cult Urgent
11/22/23 19:32
Add On- LAB Urgent
Tests Added?: magnesium
11/22/23 19:38
COVID-19 Antigen Urgent
Source: Nasal Swab
Troponin I Urgent
Influenza A+B Rapid Molecular Urgent
MABLE Source: Nasal Swab
Specimen Description:
11/22/23 21:04
Piperacillin/Tazo 4.5 Gram [Zosyn] 4.5 gram in 100 ml IV NOW
11/22/23 21:39
Admit/Transfer Patient As Directed
Co-Sign Provider:
Level of Care: Inpatient admission
Assign to:: Medical/Surgical
Physician / Group: sofi
Diagnosis: pneumonia
Reason for Hospitalization: pneumonia
Expected length of stay greater than two midnights?: Yes
ELOS- Estimated Length of Stay in days: 2
I certify the patient meets the requirements for IP care: Yes
Code Status As Directed
Resuscitation Status: Do not resuscitate
Reached after discussion with pt or family/Healthcare POA: Yes
DNR Bracelet Application ONCE
11/22/23 21:40
Legionella Urinary Antigen Urgent
MABLE Source: Urine
Specimen Description:
MRSA Screen Routine
MABLE Source: Nose
Specimen Description:
Respiratory Culture/Gram Stain Urgent
MABLE Source: Sputum
Specimen Description:
Strep pneumoniae Antigen Urgent
MABLE Source: Urine
Specimen Description:
11/22/23 21:50
Magnesium Sulfate 1 grams 0.9% Sodium Chloride 100 ml [Nss] 100 ml IV NOW
11/22/23 22:00
Flush (0.9% Sodium Chloride) [Flush (Nss)] See Dose Instructions IV PER PROTOCOL
11/22/23 22:39
Fluvoxamine [Luvox] 100 mg PO HS
Levalbuterol Tartrate [Xopenex Hfa 45 Mcg Inhaler] 1 puff INH R Q6HPRN PRN
Lorazepam [Ativan] 1 mg PO BID PRN
VANCOMYCIN Pharmacy to Dose [[facility] Pharmacy to Dose] 1 each Pharmacy To Prepare [Call Pharmacy To Prepare] 0 ml IV PER PROTOCOL
11/22/23 22:39
Activity As Directed
Activity Level: As Tolerated
Vital Signs As Directed
Frequency: Per unit guidelines
Xopenex Reason for Use As Directed
Reason for ordering Xopenex instead of Albuterol: tachy
DX Deep Vein Thrombosis Video Routine
11/22/23 22:51
Ondansetron HCl [Zofran] 8 mg PO [id number] PRN
11/22/23 23:13
Loperamide [Imodium] 2 mg PO Q4HPRN PRN
11/23/23 04:00
Piperacillin/Tazo 3.375 Gram [Zosyn] 3.375 gram in 50 ml IV Q6H
11/23/23 06:00
Complete Blood Count/With Diff IN AM
Comprehensive Metabolic Panel IN AM
Magnesium IN AM
11/23/23 08:00
Ascorbic Acid [Vitamin C] 500 mg PO DAILY
Budesonide/Formoterol 160/4.5 [Symbicort 160/4.5 Mcg Inhaler] 2 puff INH R BID
Fluvoxamine [Luvox] 50 mg PO DAILY
Heparin 5,000 units SC Q12
Lisinopril [Zestril] 2.5 mg PO DAILY
Loratadine [Claritin] 10 mg PO DAILY
Lorazepam [Ativan] 0.5 mg PO DAILY
Metoprolol Xl [Toprol Xl] 50 mg PO DAILY
Sodium Chloride 1 gram PO BID
Tiotropium [place] 2.5 Mcg [Spiriva Respimat 2.5 Mcg] 2 puff INH R DAILY
cycloSPORINE [Restasis 0.05% Ophthalmic Emulsion] 1 drops BOTH EYES BID
11/23/23 18:00
Phenobarbital [Luminal] 64.8 mg PO QPM
Rosuvastatin Calcium [Crestor] 5 mg PO QPM
12/22/23 08:00
Cyanocobalamin 1,000 mcg IM MONTHLY
Abnormal Lab Results
11/22/23 11/22/23
18:33 19:03
Hgb 10.5 L g/dL
(12.0-16.0)
Hct 31.7 L %
(37.0-47.0)
MCV 74.6 L fL
(81.0-99.0)
MCH 24.7 L pg
(27.0-31.0)
RDW 18.0 H %
(11.5-14.5)
Plt Count 108 L 10^3/uL
(130-400)
Absolute Lymphs (auto) 0.7 L 10^3/uL
(1.2-3.4)
Immature Gran % 0.6 H %
(0-0.5)
Neutrophils % 81.5 H %
(42.2-75.2)
Lymphocytes % 13.1 L %
(20.5-51.1)
Sodium 128 L mmol/L
(135-145)
BUN 19 H mg/dl
(7-17)
Creatinine 0.3 L mg/dL
(0.6-1.0)
Glucose 102 H mg/dl
(70-99)
Calcium 8.2 L mg/dl
(8.4-10.2)
Magnesium 1.4 L mg/dl
(1.6-2.3)
AST 78 H U/L
(14-36)
ALT 74 H U/L
(0-35)
Total Protein 5.8 L g/dl
(6.3-8.2)
Albumin 3.2 L g/dl
(3.5-5.0)
Urine Bilirubin 1+ A
(Negative)
Leukocyte Esterase Rfl Trace A
(Negative)
11/22/23 18:33
11/22/23 18:33
Vital Signs
Initial and Last Documented VS:
Initial Vital Signs
Temp Pulse Resp BP Pulse Ox
98.2 F 106 18 118/74 92
11/22/23 13:33 11/22/23 13:33 11/22/23 13:33 11/22/23 13:33 11/22/23 13:33
Last Documented Vital Signs
Temp Pulse Resp BP Pulse Ox
98.2 F 85 17 125/70 95
11/22/23 13:33 11/22/23 22:30 11/22/23 22:30 11/22/23 19:58 11/22/23 21:00
<Gabrielle Gotti PA-C - Last Filed: 11/22/23 21:10>
MDM/Problems Addressed
Differential Diagnosis Includes:
pneumonia, PE, copd
MDM/Problems Addressed:
73 y/o F with h/o lung cancer, malignant plueral effusion with pleurx catheter on oral chemo
hypomag chronically
copd
usually doesn't need o2 often
has been weak and tired with low pulse ox at home 77%-80s
she has not had any chest pain
hypoxic to 87% on RA
comes up to 95% on 2L
diminished BS
ekg nonischmeic
trop neg
na 128 down from 132
lfts mildly elevated
flu and covid neg
ct pe no pe
pt has slight dec in pleural effusion
b/l pna
d/w ed attending
given immunocompromised, she is at risk for resistant pna and should be hospitalized with her additional o2 requirement
<Gabrielle Gotti PA-C - Last Filed: 11/22/23 21:10>
*Critical Care Note
Total Time (30-74mins, 75-104mins- exclusive of procedures): Not Applicable
ED Attending Note
<Gabrielle Gotti PA-C - Last Filed: 11/22/23 21:10>
-
Portions of this chart may have been created with voice recognition software.� Occasional wrong word or��sound alike� substitutions may have occurred due to the inherent limitations of voice recognition software.
<Benigno Grewal DO - Last Filed: 11/23/23 01:53>
ED Attending Note
I performed the substantive portion of visit, reviewed & personally made and approve the management plan that is documented in note by myself or YOHANA.: Yes
Discharge Plan
Departure
Patient Disposition: Admit
Date of Disposition: 11/22/23
Time of Disposition: 20:59
Admit to: Med/Surg
Presentation/result/management discussed w/ accepting MD/DO: Hospitalist
Condition: Fair
Covid-19: Not Applicable
Discharge Problem:
Bilateral pneumonia, Hypoxia
Interventions
Interventions:
*ED COVID-19 Vaccine History Last Done: 11/22/23 13:33
ED- Cardiac Assessment Last Done: 11/22/23 20:04
ED- Pulmonary Assessment Last Done: 11/22/23 20:04
[2023-11-22 19:01] VITALS: BP 148/96
[2023-11-22 19:04] LABS: INR 1.04; PT 13.6 Sec (11.4-14.6)
[2023-11-22 19:05] LABS: APTT 27.6 Sec (23.4-35.0)
[2023-11-22 19:12] LABS: ALT (SGPT) 74 U/L (0-35); AST (SGOT) 78 U/L (14-36); Albumin 3.2 g/dl (3.5-5.0); Alkaline Phosphatase 92 U/L (38-126); Blood Urea Nitrogen 19 mg/dl (7-17); Calcium 8.2 mg/dl (8.4-10.2); Carbon Dioxide 26 mmol/L (22-30); Chloride 101 mmol/L (98-107); Glucose 102 mg/dl (70-99); Sodium 128 mmol/L (135-145); Total Bilirubin 0.8 mg/dl (0.2-1.3); Total Protein 5.8 g/dl (6.3-8.2); eGFR > 60.00
[2023-11-22 19:14] LABS: Urine Albumin Trace (Neg - Trace); Urine Bilirubin 1+ (Negative); Urine Character Clear (Clear); Urine Color Yellow; Urine Glucose Negative (Negative); Urine Ketone Negative (Negative); Urine Leukocyte Trace (Negative); Urine Nitrite Negative (Negative); Urine Occult Blood Negative (Negative); Urine Specific Gravity 1.025 (<1.030); Urine Urobilinogen Negative (Neg - 1+)
[2023-11-22 19:25] LABS: Urine Red Blood Cell None Seen /HPF (0-2); Urine Squamous Cell >30 /LPF (Few)
[2023-11-22 19:46] LABS: Magnesium 1.4 mg/dl (1.6-2.3)
[2023-11-22 19:58] VITALS: BP 125/70
[2023-11-22 20:04] LABS: COVID-19 Antigen Negative (Negative)
[2023-11-22 20:10] LABS: Troponin I 0.014 ng/ml
--- NOTE | 2023-11-22 21:44 | HPS.HSE ---
Addendum entered and electronically signed by Kenneth Johnston MD 11/22/23 21:51:
Hypomagnesemia
-Replete magnesium, check daily
Chronic Transaminitis
-appears to be stable
Original Note:
Family Physician
-
Family Physician: Marilyn Cortez
Chief Complaint
-
shortness of breath
History of Present Illness
73-year-old female with past medical history of lung cancer status post partial lobectomy with chronic pleural effusion status post pleurodesis/Pleurx catheter, COPD, Crohn's disease status post colostomy, hypomagnesemia, hypertension, seizure
history, anxiety, hyperlipidemia, B12 deficiency presenting for shortness of breath worsening over the past week. She denies any significant amount of cough. Denies any fevers or chills. Denies any chest pain. Denies any lower extremity edema.
Denies any nausea vomiting or diarrhea or abdominal pain.
Patient normally goes to the infusion center twice a week for magnesium and fluid infusion which helped her energy levels but the past week she has been feeling generally weak despite this. She checked her home oxygen level and was found to be in
the 70s and came up to 90s on 2 L. She came to the emergency room yesterday and had labs and chest x-ray and was sent home. She spoke to her oncologist from [place] who recommended she come to the emergency room for evaluation for pulmonary embolism.
Patient changes Pleurx catheter every week which she last did yesterday.
She follows Dr. Lugo at [place] for lung cancer.
Medical History
Past Medical History
Past Medical History: Reports Other (lung cancer status post partial lobectomy with chronic pleural effusion status post pleurodesis/Pleurx catheter, COPD, Crohn's disease status post colostomy, hypomagnesemia, hypertension, seizure history,
anxiety, hyperlipidemia, B12 deficiency)
Past Surgical History: Reports Other (Bowel resection (For Crohn's disease with a subsequent colostomy), Cholecystectomy and Other (Partial lung lobectomy))
Social History
Tobacco: Former Smoker
Alcohol: None
Drug: None
Family History
Family History: Not pertinent
Allergies / Home Medications
Allergies reflects when Allergies were last updated in [employer].
Home Medications with original date entered in [employer]
Allergy/Medication List:
Allergies
Allergy/AdvReac Type Severity Reaction Status Date / Time
acetaminophen [From Vicodin] Allergy Elevates Verified 11/22/23 13:35
ALT, AST
hydrocodone bitartrate Allergy Vomiting-'deathly Verified 11/22/23 13:35
[From Vicodin] sick in
stomach'
latex Allergy redness Verified 11/22/23 13:35
and
itching,
rash
meperidine HCl [From Demerol] Allergy Nausea / Verified 11/22/23 13:35
Vomiting
propoxyphene Allergy 'DARVOCET' Verified 11/22/23 13:35
[From Darvocet-N] PER
WRITTEN
ORDER FOR
03/24/19
Home Medications
lisinopril 5 mg tablet 2.5 mg PO DAILY Blood Pressure 03/22/15
cyanocobalamin (vitamin B-12) 1,000 mcg tablet 1,000 mcg IM MONTHLY Supplement 03/12/19
cyclosporine 0.05 % eye drops in a dropperette (Restasis) 1 drp BOTH EYES BID dry eyes 03/12/19
fluvoxamine 50 mg tablet 100 mg PO HS Mental Health/Anxiety 03/12/19
phenobarbital 64.8 mg tablet 64.8 mg PO QPM Neurological Condition 03/12/19
rosuvastatin 5 mg tablet (Crestor) 5 mg PO QPM High Cholesterol 09/26/22
tiotropium bromide 18 mcg capsule with inhalation device (Spiriva with HandiHaler) 1 cap inhalation R DAILY Lung/Breathing Issues 09/26/22
adagrasib 200 mg tablet (Krazati) 600 mg PO BID Cancer 09/17/23
loperamide 2 mg tablet 2 mg PO Q4HPRN PRN diarrhea 09/17/23
metoprolol succinate 50 mg tablet,extended release 24 hr (Toprol XL) 50 mg PO DAILY Heart Disease/Condition 09/17/23
sodium chloride 1,000 mg soluble tablet 1,000 mg PO BID Supplement #60 tabs 09/20/23
ascorbic acid (vitamin C) 500 mg tablet (Vitamin C) 500 mg PO DAILY 11/09/23
loratadine 10 mg tablet (Claritin) 10 mg PO DAILY 11/09/23
lorazepam 0.5 mg tablet (Ativan) 0.5 mg PO DAILY 11/09/23
fluticasone furoate 200 mcg-vilanterol 25 mcg/dose inhalation powder (Breo Ellipta) 1 inh inhalation R DAILY 11/22/23
fluvoxamine 50 mg tablet 50 mg PO DAILY 11/22/23
levalbuterol tartrate 45 mcg/actuation aerosol inhaler (Xopenex HFA) 1 puff inhalation R Q6HPRN PRN sob 11/22/23
lorazepam 1 mg tablet 1 mg PO BID PRN anxiety 11/22/23
ondansetron HCl 8 mg tablet 8 mg PO [id number] PRN nasuea 11/22/23
Review of Systems
-
History Source: Patient
A 12 point ROS was completed and negative except as noted: Yes
Constitutional: Reports No Symptoms
EENT: Reports No Symptoms
Respiratory: Reports See HPI
Cardiac: Reports No Symptoms
Abdomen/GI: Reports No Symptoms
: Reports No Symptoms
Musculoskeletal: Reports No Symptoms
Skin: Reports No Symptoms
Neurological: Reports No Symptoms
Endocrine: Reports No Symptoms
Hematologic/Lymphatic: Reports No Symptoms
Psych: Reports No Symptoms
Physical Exam
Vital Signs
Vital Signs
Temp Pulse Resp BP Pulse Ox
98.2 F 74 15 125/70 95
11/22/23 13:33 11/22/23 20:45 11/22/23 20:45 11/22/23 19:58 11/22/23 20:45
Physical Exam
General: Well Developed, Well Nourished and No Apparent Distress
HEENT: NormoCephalic, Moist mucous membranes and Atraumatic
Respiratory: Clear
Cardiac: S1/S2 and Regular Rhythm; No Murmur or Rub
GI: Soft, Non Tender, Non Distended and Normal Bowel Sounds; No Organomegaly
Rectal: Deferred by Provider
Musculoskeletal: No Clubbing, No Cyanosis and No Edema
Skin: No Rash
Neuro: Nonfocal/grossly intact
Laboratory Results
-
11/22/23 18:33
11/22/23 18:33
Laboratory Results
PT 13.6 Sec (11.4-14.6) 11/22/23 18:33
INR 1.04 11/22/23 18:33
APTT 27.6 Sec (23.4-35.0) 11/22/23 18:33
Total Bilirubin 0.8 mg/dl (0.2-1.3) 11/22/23 18:33
AST 78 U/L (14-36) H 11/22/23 18:33
ALT 74 U/L (0-35) H 11/22/23 18:33
Alkaline Phosphatase 92 U/L (38-126) 11/22/23 18:33
Troponin I 0.014 ng/ml 11/22/23 19:38
Data Reviewed
-
Lab Data: Labs Reviewed by me
Old Records: Reviewed
Impression/Plan
-
IMPRESSION:
PLAN:
# Bilateral community-acquired pneumonia in the setting of immunosuppression
-CT chest shows no evidence of pulm embolism, minimal decrease in size of right pleural effusion, increased bilateral airspace disease consistent with pneumonia
-COVID-negative, influenza negative
-Check sputum culture, strep antigen, Legionella antigen, MRSA
-Vancomycin/Zosyn
History of non-small cell lung cancer status post partial lobectomy
-Hold Krazati
-Patient wants us to discuss with her oncologist Dr. Lugo at [place] tomorrow regarding duration of holding this
History of chronic right pleural effusion status post pleurodesis/Pleurx catheter
-Exchange yesterday, which patient does weekly
COPD
-Continue Breo Ellipta, tiotropium
Former smoker
Crohn's disease status post colostomy
History of hypokalemia/hypomagnesemia secondary to colostomy losses
-Receives magnesium infusion/IV fluids twice a week
Chronic hyponatremia secondary to SIADH
-Stable
-Continue salt tablets
B12 deficiency
-Continue B12
Essential hypertension
-Continue lisinopril, metoprolol
Seizure history
-Continue phenobarbital
Anxiety
-Continue fluvoxamine, Ativan
Hyperlipidemia
-Continue statin
DNR/DNI
DVT prophylaxis�heparin
Regular diet
[2023-11-22] MEDS: ZOSYN 100 IV (21:48)
[2023-11-22 21:51] VITALS: BMI 19.8
[2023-11-22] MEDS: MAGNESIUM SULFATE 102 GRAMS IV (22:34)
[2023-11-22 23:00] VITALS: BP 116/65
[2023-11-22] MEDS: LUVOX 100 MG PO (23:56)
[2023-11-22] MEDS: VANCOCIN 275 MG IV (23:56)
[2023-11-23] VITALS (7 sets, daily range): BP systolic 102–141; BP diastolic 57–88; BMI 20.4
[2023-11-23] MEDS: LUMINAL 64.7999999999999972 MG PO ×2 (00:31→17:38)
[2023-11-23] MEDS: ZOSYN 50 IV ×4 (05:54→22:16)
[2023-11-23 06:10] LABS: % Eosinophils 0.4 % (0-6); % Immature Granulocytes 0.4 % (0-0.5); % Lymphocytes 11.7 % (20.5-51.1); % Monocytes 4.7 % (1.7-9.3); % Neutrophils 82.8 % (42.2-75.2); Absolute Lymphocytes 0.6 10^3/uL (1.2-3.4); Absolute Monocytes 0.2 10^3/uL (0.1-0.6); Hematocrit 30.1 % (37.0-47.0); Hemoglobin 9.8 g/dL (12.0-16.0); Mean Corp Hgb Conc. 32.6 g/dL (33.0-37.0); Mean Corpuscular Hgb 24.8 pg (27.0-31.0); Mean Corpuscular Volume 76.2 fL (81.0-99.0); Mean Platelet Volume 10.3 fL (7.4-10.4); Nucleated Red Blood Cells % 0 %; Platelet Count 105 10^3/uL (130-400); Red Blood Cell Count 3.95 10^6/uL (4.20-5.40); Red Cell Dist. Width 17.6 % (11.5-14.5); White Blood Cell Count 4.9 10^3/uL (4.8-10.8)
[2023-11-23 06:38] LABS: ALT (SGPT) 64 U/L (0-35); AST (SGOT) 62 U/L (14-36); Albumin 2.6 g/dl (3.5-5.0); Alkaline Phosphatase 105 U/L (38-126); Blood Urea Nitrogen 20 mg/dl (7-17); Calcium 8.2 mg/dl (8.4-10.2); Carbon Dioxide 25 mmol/L (22-30); Chloride 104 mmol/L (98-107); Estimated Creatinine Clearance 67 ml/min; Glucose 92 mg/dl (70-99); Magnesium 1.5 mg/dl (1.6-2.3); Potassium 3.4 mmol/L (3.5-5.1); Sodium 131 mmol/L (135-145); Total Bilirubin 0.6 mg/dl (0.2-1.3); Total Protein 5.1 g/dl (6.3-8.2); eGFR > 60.00
[2023-11-23] MEDS: IMODIUM 2 MG PO (06:50)
[2023-11-23] MEDS: SPIRIVA RESPIMAT 2.5 MCG 2 PUFF INH (07:33)
[2023-11-23] MEDS: SYMBICORT 160/4.5 MCG INHALER 2 PUFF INH ×2 (07:33→21:19)
--- NOTE | 2023-11-23 08:07 | CON.PUL ---
Consultation
Consultation Request
Date/Time Consultation Requested: 11/23/2023-9 AM
Date/Time Consultation Performed: 11/23/2023-9:15 AM
Requesting Provider: Hospitalist
Performing Provider: Dr. Parker
Reason for Consultation: Shortness of breath
Medical History
-
Chief Complaint: Shortness of breath
History of Present Illness:
73-year-old female former smoker with underlying COPD and history of lung cancer status post partial right lower lobectomy with recurrence status post chemo, recurrent pleural effusions status post Pleurx catheter who presented with increasing
shortness of breath felt to have a COPD exacerbation-pulmonary consulted for COPD exacerbation 11/23/2023. Patient states that her shortness of breath is increased recently. She has increased dyspnea exertion, chest congestion with difficulties
mobilizing her secretions. She denies any chest pain, pleurisy, mopped assist, abdominal pain, reflux, increased leg swelling or weakness.
Past Medical History
Past Medical History: None (COPD. Former smoker. Lung cancer status post partial right lower lobectomy with recurrence, KRAS positive status post chemo/immuno therapy. Recurrent right pleural effusion status post Pleurx catheter. Crohn's disease
status post colostomy. Hypertension. Seizure history. Anxiety. )
Past Surgical History: None (Hyperlipidemia. B12 deficiency. Bowel resection for Crohn's. Cholecystectomy. Partial right lower lobectomy.)
Social History
Tobacco: Former Smoker (89-dodj-rusg-2 to 3 packs a day quit 30 years ago)
Alcohol: None
Drug: None
Living: With Family
Occupational Exposures: No known asbestos exposure
Environmental Exposures: No known tuberculosis exposure
Family History
Family History: Reviewed & Not Pertinent
Allergies / Home Medications
Allergies
Allergy/AdvReac Type Severity Reaction Status Date / Time
acetaminophen [From Vicodin] Allergy Elevates Verified 11/22/23 13:35
ALT, AST
hydrocodone bitartrate Allergy Vomiting-'deathly Verified 11/22/23 13:35
[From Vicodin] sick in
stomach'
latex Allergy redness Verified 11/22/23 13:35
and
itching,
rash
meperidine HCl [From Demerol] Allergy Nausea / Verified 11/22/23 13:35
Vomiting
propoxyphene Allergy 'DARVOCET' Verified 11/22/23 13:35
[From Darvocet-N] PER
WRITTEN
ORDER FOR
03/24/19
Home Medications
Medication Instructions Recorded Confirmed Last Taken Type
lisinopril 5 mg tablet 2.5 mg PO DAILY Blood Pressure 03/22/15 11/22/23 11/22/23 History
cyanocobalamin (vitamin B-12) 1,000 mcg IM MONTHLY Supplement 03/12/19 11/22/23 11/16/23 History
1,000 mcg tablet
cyclosporine 0.05 % eye drops in a 1 drp BOTH EYES BID dry eyes 03/12/19 11/22/23 11/22/23 History
dropperette (Restasis)
fluvoxamine 50 mg tablet 100 mg PO HS Mental Health/Anxiety 03/12/19 11/22/23 11/21/23 History
phenobarbital 64.8 mg tablet 64.8 mg PO QPM Neurological 03/12/19 11/22/23 11/21/23 History
Condition
rosuvastatin 5 mg tablet (Crestor) 5 mg PO QPM High Cholesterol 09/26/22 11/22/23 11/21/23 History
tiotropium bromide 18 mcg capsule 1 cap inhalation R DAILY 09/26/22 11/22/23 11/22/23 History
with inhalation device (Spiriva Lung/Breathing Issues
with [employer]er)
adagrasib 200 mg tablet (Krazati) 600 mg PO BID Cancer 09/17/23 11/22/23 11/22/23 History
loperamide 2 mg tablet 2 mg PO Q4HPRN PRN diarrhea 09/17/23 11/22/23 11/13/23 History
metoprolol succinate 50 mg 50 mg PO DAILY Heart 09/17/23 11/22/23 11/22/23 History
tablet,extended release 24 hr Disease/Condition
(Toprol XL)
sodium chloride 1,000 mg soluble 1,000 mg PO BID Supplement #60 tabs 09/20/23 11/22/23 11/22/23 Rx
tablet
ascorbic acid (vitamin C) 500 mg 500 mg PO DAILY 11/09/23 11/22/23 11/22/23 History
tablet (Vitamin C)
loratadine 10 mg tablet (Claritin) 10 mg PO DAILY 11/09/23 11/22/23 11/22/23 History
lorazepam 0.5 mg tablet (Ativan) 0.5 mg PO DAILY 11/09/23 11/22/23 11/22/23 History
fluticasone furoate 200 1 inh inhalation R DAILY 11/22/23 11/22/23 11/22/23 History
mcg-vilanterol 25 mcg/dose
inhalation powder (Breo Ellipta)
fluvoxamine 50 mg tablet 50 mg PO DAILY 11/22/23 11/22/23 11/22/23 History
levalbuterol tartrate 45 1 puff inhalation R Q6HPRN PRN sob 11/22/23 11/22/23 Unknown History
mcg/actuation aerosol inhaler
(Xopenex HFA)
lorazepam 1 mg tablet 1 mg PO BID PRN anxiety 11/22/23 11/22/23 Unknown History
ondansetron HCl 8 mg tablet 8 mg PO [id number] PRN nasuea 11/22/23 11/22/23 Unknown History
Review of Systems
-
Unable to Obtain full review of systems at this time due to: Other (Per HPI)
Vitals / Labs / Diagnostic Testing
Vital Signs
Temp Pulse Resp BP Pulse Ox
98.2 F 78 15 138/76 90
11/22/23 13:33 11/23/23 07:37 11/23/23 07:37 11/23/23 02:00 11/23/23 02:00
Lab Data
11/23/23 05:39
11/23/23 05:39
Laboratory Results
11/22/23
18:33
PT 13.6
INR 1.04
APTT 27.6
Microbiology
11/22/23 19:03 Urine Legionella Urinary Antigen - Final
Negative for Legionella pneumophila Serogroup 1 antigen.
A negative result does not rule out the possiblity of
Legionella infection due to other serogroups or species of
Legionella. Clinical correlation is recommended.
11/22/23 19:03 Urine Streptococcus pneumoniae Antigen (M - Final
Negative for Streptococcus pneumoniae antigen.
A negative result does not exclude infection with
Streptococcus pneumoniae. Clinical correlation is
recommended.
11/22/23 19:38 Nasal Swab Influenza Types A & B (DEANNA) - Final
Negative for Influenza A & B, NAAT
Negative results must be combined with clinical observations
and patient history.
Nucleic Acid Amplification test (NAAT)performed on the
[employer] platform.
Diagnostic Testing:
Physical Exam
-
Exam:
Well-nourished and well-developed in no apparent distress
HEENT-atraumatic, normocephalic
Neck-supple, no JVD, no bruit
Heart-regular rate and rhythm-no murmurs, rubs or gallops
Chest with diminished breath sounds, prolonged expiratory time, expiratory wheezes and no crackles
Abdomen-soft, nontender, nondistended, no hepatosplenomegaly
Extremities-no cyanosis, clubbing, edema and good peripheral pulses
Integument-intact, no rashes, lesions or ecchymosis
Neurology-alert and oriented, nonfocal motor and sensory exam
Assessment
-
73-year-old female former smoker with underlying COPD and history of lung cancer status post partial right lower lobectomy with recurrence status post chemo, recurrent pleural effusions status post Pleurx catheter who presented with increasing
shortness of breath felt to have a COPD exacerbation-pulmonary consulted for COPD exacerbation 11/23/2023.
Assessment
COPD with acute exacerbation
Multifocal qanmuwucp-bthrisqbm-aobymdta in immuno compromised patient
Recurrent right pleural effusion status post Pleurx catheter
Axokdp-zwmclbxcax-zamqmebrut 9.8
Thrombocytopenia-platelet count 105
Hyponatremia-serum sodium 128
Mild transaminitis
Conditions present prior to admission:
Recent hospitalization 11/01/2023-hypoxemic respiratory failure, COPD exacerbation, electrolyte replacement
COPD-followed by Dr. Mccabe at [facility]-maintained on Breo and Spiriva
Former smoker.
Lung cancer status post partial right lower lobectomy with recurrence, KRAS positive status post chemo/immuno therapy-followed by Dr. Mccabe at [facility]
Recurrent right pleural effusion status post Pleurx catheter.
Crohn's disease status post colostomy.
Hypertension.
Seizure history.
Anxiety.
Hyperlipidemia.
B12 deficiency.
Bowel resection for Crohn's. Cholecystectomy. Partial right lower lobectomy.
Plan
Respiratory decompensation likely due to pneumonia and COPD exacerbation
Supplemental oxygen as needed
BiPAP if needed
High flow oxygen if appropriate
Spiriva continues
Symbicort continues
Add nebulizers
Add Decadron
Mucolytic's
Mucus clearing devices
Pleurx catheter drainage per protocol
Check cultures
Empiric antibiotics-Zosyn and vancomycin initiated
Add atypical rwkuceqx-olotzrqhgifj-durzwnu dose as it may potentiate Krazati
Monitor leukocytosis
Monitor blood sugars
Insulin supplementation as needed
Monitor hemoglobin and platelet count
Transfuse if needed
DVT prophylaxis-on heparin
GI prophylaxis recommended if on steroids for prolonged period
Early nutrition
Early mobilization
Reviewed with emergency room nursing
Outpatient pulmonary xuvudk-ge-rlqiatr with Dr. Mccabe at [facility]-May benefit from comanagement by local junior art director
Diagnostic data:
Chest x-ray 02/09/2016-NAD
Chest x-ray 07/20/2020-NAD
Chest x-ray 07/06/22-3.2 cm asymmetrical opacification inferior aspect right middle lobe, moderate symmetrical bilateral lung hyperinflation
Chest x-ray 10/30/20230413-mwuff-poulr chest tube present, improved opacification in the right lung
Chest x-ray 11/21/2023-small right pleural effusion improved, stable right-sided chest tube
PET scan 07/17/2022-hypermetabolic spiculated mass right lower lobe anteriorly-SUV 8.5 and delayed 7.9, 8 mm right upper lobe nodule laterally with SUV 1.6 and 1.5 delayed, 2 mm right upper lobe nodule as well as 4 mm right lower lobe nodule, no
evidence for metastatic disease
CT chest 02/09/2016-no central pulmonary embolism, no evidence for thoracic dissection, right middle lobe consolidation suggestive of pneumonia, calcified plaque celiac access
CT chest-no pulmonary embolism, small right pleural effusion, mild centrilobular emphysema
CT chest 10/30/2023-no evidence for pulm embolism, right-sided pleural catheter with small to moderate right pleural effusion
CT chest 11/22/2023-no pulm embolism, minimal decrease in size of right pleural effusion, right-sided pleural catheter in place, increased airspace disease bilaterally consistent with pneumonia
Brain MRI 10/29/2023-no evidence of parenchymal mass or infarct
Data Reviewed
-
EKG: Report reviewed by me
Radiology: Report reviewed by me
CT Scan: Report reviewed by me
MRI: Report reviewed by me
Labs: Labs reviewed by me
Old Records: Reviewed
Total Time Spent with Patient (in minutes): 65
[2023-11-23] MEDS: ATIVAN 0.5 MG PO (08:12)
[2023-11-23] MEDS: ZESTRIL 2.5 MG PO (08:13)
[2023-11-23] MEDS: TOPROL XL 50 MG PO (08:13)
[2023-11-23] MEDS: CLARITIN 10 MG PO (08:13)
[2023-11-23] MEDS: SODIUM CHLORIDE 1 GRAM PO ×2 (08:15→19:48)
[2023-11-23] MEDS: RESTASIS 0.05% OPHTHALMIC EMULSION 1 DROPS BOTH EYES ×2 (08:15→19:48)
[2023-11-23] MEDS: HEPARIN 5000 UNITS SC ×2 (08:22→19:47)
[2023-11-23] MEDS: VITAMIN C 500 MG PO (08:22)
--- NOTE | 2023-11-23 08:51 | PHA.VAN.IN ---
Assessment
- Assessment
Renal Function: Appears similar to baseline
Concomitant Antimicrobials: piperacillin/tazobactam
AUC Dosing Plan
- Dosing Variables
Dosing Weight (kg): 49
Dosing CrCl (ml/min): 67
Vd coefficient (L/kg): 0.7
- Empiric Dosing
Initial / Loading Dose: 1250 mg adm ~ 0000
Maintenance Regimen: 500 mg q12h to start this AM
Estimated AUC (mcg*h/mL): 500
Estimated Peak (mcg*h/mL): 28.4
Estimated Trough (mcg/ml): 14.7
Estimated Half Life (H): 11.5
- Monitoring
No levels ordered at this time: consider levels after 4th dose
Pharmacokinetics Vancomycin I
- -
Patient Age: 73
Patient Sex: Female
Vancomycin Day #: 1
Indication: Pulmonary/Respiratory
Requesting Provider: Preston
Pertinent Antimicrobial Allergies:
latex
Height / Weight:
Height 5 ft 2 in
Actual Weight 48.988 kg
Pertinent Past Medical History: BMI ~20; hx lung Ca, COPD; pleurex cath
- Vital Signs / Lab Results
Temp Pulse Resp BP Pulse Ox
98.2 F 78 15 138/76 90
11/22/23 13:33 11/23/23 07:37 11/23/23 07:37 11/23/23 02:00 11/23/23 02:00
Lab Results - Hematology
11/22/23 11/23/23
18:33 05:39
WBC 5.0 4.9
Lab Results - Chemistry
11/22/23 11/23/23
18:33 05:39
BUN 19 H 20 H
Creatinine 0.3 L 0.6
Estimated Creat Clear 67
Albumin 3.2 L 2.6 L
Lab Results - Urine
11/22/23
19:03
Urine Nitrite (Reflex) Negative
Leukocyte Esterase Rfl Trace A
Urine WBC (Reflex) 3-5
Ur Squamous Epith Cells >30
Microbiology Results
11/22/23 19:03 Legionella Urinary Antigen - Final
Urine Negative for Legionella pneumophila Serogroup 1 antigen.
A negative result does not rule out the possiblity of
Legionella infection due to other serogroups or species of
Legionella. Clinical correlation is recommended.
Streptococcus pneumoniae Antigen (M - Final
Negative for Streptococcus pneumoniae antigen.
A negative result does not exclude infection with
Streptococcus pneumoniae. Clinical correlation is
recommended.
11/22/23 19:38 Influenza Types A & B (DEANNA) - Final
Nasal Swab Negative for Influenza A & B, NAAT
Negative results must be combined with clinical observations
and patient history.
Nucleic Acid Amplification test (NAAT)performed on the
[employer] platform.
--- NOTE | 2023-11-23 08:53 | PTCARENOTE ---
pt is ED hold, pt is Q8 vitals and was admitted on 2L of O2 and isn't on OX at home. Pt is on ambulatory in room prn and has a ileostomy that pt prefers to empty herself, but continue to ask if she needs help. Call huber is in reach, will continue to
monitor.
[2023-11-23] MEDS: LUVOX 50 MG PO (09:16)
--- NOTE | 2023-11-23 09:32 | W.PN.HOSP.TC ---
Today's Communication/Plan
-
.
Assessment / Plan
Assessment / Plan
Physical Exam
General: Well Developed, Well Nourished and No Apparent Distress
HEENT: NormoCephalic, Moist mucous membranes and Atraumatic
Respiratory: Clear
Cardiac: S1/S2 and Regular Rhythm; No Murmur or Rub
GI: Soft, Non Tender, Non Distended and Normal Bowel Sounds; No Organomegaly
Rectal: Deferred by Provider
Musculoskeletal: No Clubbing, No Cyanosis and No Edema
Skin: No Rash
Neuro: Nonfocal/grossly intact
Psych: no agitation
# Bilateral community-acquired pneumonia in the setting of immunosuppression
She is feeling better, less cough, still with exertional sob
-CT chest showed no evidence of pulm embolism, minimal decrease in size of right pleural effusion, increased bilateral airspace disease consistent with pneumonia
-COVID-negative, influenza negative
-Check sputum culture, strep antigen, Legionella antigen, MRSA
-Vancomycin/Zosyn
- Appreciate pulmonary input
#History of non-small cell lung cancer status post partial lobectomy
- I spoke with Dr Mirna Lugo at [facility] [phone] regarding Krazati. Can be resumed while treating pneumonia but recommend to consider possible medication induced pneumonitis if no improvement despite antibiotic treatment.
# Medication induced anemia and thrombocytopenia.
No hypotension. No indication for blood transfusion. No bruising noted
# Hypokalemia, replace
# Hypomagnesemia, replace
History of chronic right pleural effusion status post pleurodesis/Pleurx catheter
-Exchange 11/21/23 which patient does weekly
COPD
-Continue Breo Ellipta, tiotropium
Former smoker
Crohn's disease status post colostomy
History of hypokalemia/hypomagnesemia secondary to colostomy losses
-Receives magnesium infusion/IV fluids twice a week
Chronic hyponatremia secondary to SIADH
-Stable
-Continue salt tablets
B12 deficiency
-Continue B12
Essential hypertension
-Continue lisinopril, metoprolol
Seizure history
-Continue phenobarbital
Anxiety
-Continue fluvoxamine, Ativan
Hyperlipidemia
-Continue statin
DNR/DNI
DVT prophylaxis�heparin
Regular diet
Total time spent to see the patient, examine the patient on the floor, review data and lab results, discuss treatment plan with patient, nursing staff around 55 minutes
Anticipated Discharge: > 48 hours
Subjective/Interval History
-
Date of Service: November 23, 2023
Still cough with exertional SOB
Objective Data
-
Labs:
Laboratory Results
11/23/23
05:39
WBC 4.9
Hgb 9.8 L
Hct 30.1 L
Plt Count 105 L
Sodium 131 L
Potassium 3.4 L
Chloride 104
Carbon Dioxide 25
BUN 20 H
Creatinine 0.6
Glucose 92
Calcium 8.2 L
Total Bilirubin 0.6
AST 62 H
ALT 64 H
Alkaline Phosphatase 105
Vital Signs:
Vital Signs
Temp Pulse Resp BP Pulse Ox
98.2 F 97 20 138/88 92
11/23/23 08:47 11/23/23 08:47 11/23/23 08:47 11/23/23 08:47 11/23/23 08:47
I&O
11/22/23 11/23/23 11/24/23
06:59 06:59 06:59
Intake Total 250 / 250
Balance 250 / 250
[2023-11-23] MEDS: KCL 20 MEQ PO (10:34)
[2023-11-23] MEDS: VANCOCIN HCL 500 MG 100 IV ×2 (10:35→18:33)
[2023-11-23] MEDS: MAGNESIUM SULFATE 100 IV (10:36)
[2023-11-23] MEDS: MUCINEX 1200 MG PO (12:23)
[2023-11-23] MEDS: DECADRON IV (12:40)
[2023-11-23] MEDS: CRESTOR 5 MG PO (17:38)
[2023-11-23] MEDS: NON-FORMULARY ITEM 600 MG PO (19:47)
[2023-11-23] MEDS: ZOFRAN 8 MG PO (19:58)
[2023-11-23] MEDS: ATIVAN 1 MG PO (19:58)
--- NOTE | 2023-11-23 21:33 | W.PN.UPDATE ---
Update Note
Progress Note Update
RN notified LOAN INTERVIEWER. Patient wants to change code status from DNR to Full code. She stated she talked to her son about it again and made the decision. States she had made the decision to be a DNR in 'vague' before, and now she wants everything to be
done. Given her condition this LOAN INTERVIEWER discussed the risks and consequences. Patient does not want this LOAN INTERVIEWER to talk to son at present. Patient verbalizes understanding. Will change Code status to Full code.
[2023-11-23] MEDS: LUVOX 100 MG PO (22:16)
[2023-11-24] MEDS: DECADRON IV (00:25)
[2023-11-24] MEDS: ZOSYN 50 IV ×4 (04:50→22:01)
[2023-11-24] MEDS: VANCOCIN HCL 500 MG 100 IV (05:24)
[2023-11-24 08:04] VITALS: BP 118/75
[2023-11-24] MEDS: ZITHROMAX 250 MG PO (08:25)
[2023-11-24] MEDS: CLARITIN 10 MG PO (08:25)
[2023-11-24] MEDS: VITAMIN C 500 MG PO (08:25)
[2023-11-24] MEDS: KCL 20 MEQ PO (08:26)
[2023-11-24] MEDS: ATIVAN 0.5 MG PO (08:26)
[2023-11-24] MEDS: TOPROL XL 50 MG PO (08:26)
[2023-11-24] MEDS: SODIUM CHLORIDE 1 GRAM PO ×2 (08:26→20:23)
[2023-11-24] MEDS: LUVOX 50 MG PO (08:26)
[2023-11-24] MEDS: ZESTRIL 2.5 MG PO (08:27)
[2023-11-24] MEDS: RESTASIS 0.05% OPHTHALMIC EMULSION 1 DROPS BOTH EYES ×2 (08:30→20:22)
[2023-11-24] MEDS: NON-FORMULARY ITEM 600 MG PO ×2 (08:31→20:22)
[2023-11-24] MEDS: HEPARIN 5000 UNITS SC ×2 (08:32→20:22)
[2023-11-24] MEDS: SPIRIVA RESPIMAT 2.5 MCG 2 PUFF INH (09:04)
[2023-11-24] MEDS: SYMBICORT 160/4.5 MCG INHALER 2 PUFF INH ×2 (09:04→20:55)
[2023-11-24] MEDS: XOPENEX HFA 45 MCG INHALER 1 PUFF INH (09:07)
[2023-11-24 09:14] VITALS: O2SAT 82
--- NOTE | 2023-11-24 10:35 | PHA.VAN.FU ---
Vancomycin Assessment / Plan
- Assessment
Renal Function: No New Labs Today
In the past 24 hrs, patient has been: Afebrile
Concomitant Antimicrobials: piperacillin/tazobactam; azithromycin
- Dosing Plan
Continue: vancomycin 500 mg q12h - first dose 11/23/23 0900
- Monitoring Plan
Peak Level: 11/24/23 2030 - after 4th 500 mg dose
Trough Level: 11/25/23 0530
- Follow Up
Pharmacy will continue to follow.
Vancomycin Follow UP
- -
Patient Age: 73
Patient Sex: Female
Vancomycin Day #: 2
Indication: Pulmonary/Respiratory
Requesting Provider: Preston
Pertinent Antimicrobial Allergies:
latex
Height / Weight:
Height 5 ft 2 in
Actual Weight 50.576 kg
Pertinent Past Medical History: BMI ~20; hx lung Ca, COPD; pleurex cath
- Vital Signs / Lab Results
Temp Pulse Resp BP Pulse Ox
98.0 F 112 20 118/75 91
11/24/23 08:04 11/24/23 09:14 11/24/23 09:14 11/24/23 08:26 11/24/23 09:14
Lab Results - Hematology
11/22/23 11/23/23
18:33 05:39
WBC 5.0 4.9
Lab Results - Chemistry
11/22/23 11/23/23
18:33 05:39
BUN 19 H 20 H
Creatinine 0.3 L 0.6
Estimated Creat Clear 67
Albumin 3.2 L 2.6 L
Microbiology Results
11/23/23 10:06 Nasal Screen MRSA (PCR) - Final
Nose MRSA not detected - performed by PCR methodology.
11/22/23 19:03 Legionella Urinary Antigen - Final
Urine Negative for Legionella pneumophila Serogroup 1 antigen.
A negative result does not rule out the possiblity of
Legionella infection due to other serogroups or species of
Legionella. Clinical correlation is recommended.
Streptococcus pneumoniae Antigen (M - Final
Negative for Streptococcus pneumoniae antigen.
A negative result does not exclude infection with
Streptococcus pneumoniae. Clinical correlation is
recommended.
11/22/23 19:38 Influenza Types A & B (DEANNA) - Final
Nasal Swab Negative for Influenza A & B, NAAT
Negative results must be combined with clinical observations
and patient history.
Nucleic Acid Amplification test (NAAT)performed on the
[employer] platform.
--- NOTE | 2023-11-24 11:26 | W.PN.HOSP.TC ---
Today's Communication/Plan
-
.
Assessment / Plan
Assessment / Plan
Physical Exam
General: no acute respiratory distress
HEENT: NormoCephalic, Moist mucous membranes and Atraumatic
Respiratory: rales and rhonchi both lungs
Cardiac: S1/S2 and Regular Rhythm; No Murmur or Rub
GI: Soft, Non Tender, Non Distended and Normal Bowel Sounds; No Organomegaly
Rectal: Deferred by Provider
Musculoskeletal: No Clubbing, No Cyanosis and No Edema
Skin: No Rash
Neuro: Nonfocal/grossly intact
Psych: no agitation
# Bilateral community-acquired pneumonia in the setting of immunosuppression
She is feeling better, less cough, still with exertional sob
-CT chest showed no evidence of pulm embolism, minimal decrease in size of right pleural effusion, increased bilateral airspace disease consistent with pneumonia
-COVID-negative, influenza negative
-Status post vancomycin/Zosyn/ low dose Zithromax. Will add probiotic
- Negative MRSA screen, will stop Vancomycin. Negative for Legionella.
- Appreciate pulmonary input
#History of non-small cell lung cancer status post partial lobectomy
- I spoke with Dr Mirna Lugo at [facility] [phone] regarding Krazati. Can be resumed while treating pneumonia but recommend to consider possible medication induced pneumonitis if no improvement despite antibiotic treatment.
# Medication induced anemia and thrombocytopenia.
No hypotension. No indication for blood transfusion. No bruising noted
# Hypokalemia, replace, recheck BMP
# Hypomagnesemia, replace, recheck in a.m.
History of chronic right pleural effusion status post pleurodesis/Pleurx catheter
-Exchange 11/21/23 which patient does weekly
COPD
-Continue Breo Ellipta, tiotropium
Former smoker
Crohn's disease status post colostomy
History of hypokalemia/hypomagnesemia secondary to colostomy losses
-Receives magnesium infusion/IV fluids twice a week
Chronic hyponatremia secondary to SIADH
-Stable
-Continue salt tablets
B12 deficiency
-Continue B12
Essential hypertension
-Continue lisinopril, metoprolol
Seizure history
-Continue phenobarbital
Anxiety
-Continue fluvoxamine, Ativan
Hyperlipidemia
-Continue statin
# code status, changed to full code based on pt's wishes.
DVT prophylaxis�heparin
Regular diet
Total time spent to see the patient, examine the patient on the floor, review data and lab results, discuss treatment plan with patient, nursing staff around 55 minutes
Anticipated Discharge: 24 - 48 hours
Subjective/Interval History
-
Date of Service: November 24, 2023
Still sob on exertion
No fevers
Objective Data
-
Vital Signs:
Vital Signs
Temp Pulse Resp BP Pulse Ox
98.0 F 112 20 118/75 91
11/24/23 08:04 11/24/23 09:14 11/24/23 09:14 11/24/23 08:26 11/24/23 09:14
I&O
11/23/23 11/24/23 11/25/23
06:59 06:59 07:59
Intake Total 250 / 250 2601 / 2601
Balance 250 / 250 2601 / 2601
[2023-11-24] MEDS: VISBIOME 1 CAP PO (11:27)
[2023-11-24] MEDS: DECADRON 4 MG IV ×2 (12:12→23:05)
--- NOTE | 2023-11-24 12:15 | W.PN.PUL3 ---
Today's Communication / Plan
-
MRSA neg, can likely stop vanc
Check procal and proBNP, if negative, may consider stopping all abx
On baseline use of 3L
Encouraged OOB/ambulation, appears deconditioned
Assessment
-
73-year-old female former smoker with underlying COPD and history of lung cancer status post partial right lower lobectomy with recurrence status post chemo, recurrent pleural effusions status post Pleurx catheter who presented with increasing
shortness of breath felt to have a COPD exacerbation-pulmonary consulted for COPD exacerbation 11/23/2023.
COPD with acute exacerbation
Multifocal yrvfqhtlr-zxeqwlybs-rfyvobsd in immuno compromised patient
Recurrent right pleural effusion status post Pleurx catheter
Fmrxqk-swwjmowzrp-ebmyriufcn 9.8
Thrombocytopenia-platelet count 105
Hyponatremia-serum sodium 128
Mild transaminitis
Conditions present prior to admission:
Recent hospitalization 11/01/2023-hypoxemic respiratory failure, COPD exacerbation, electrolyte replacement
COPD-followed by Dr. Mccabe at [facility]-maintained on Breo and Spiriva
Former smoker.
Lung cancer status post partial right lower lobectomy with recurrence, KRAS positive status post chemo/immuno therapy-followed by Dr. Mccabe at [facility]
Recurrent right pleural effusion status post Pleurx catheter.
Crohn's disease status post colostomy.
Hypertension.
Seizure history.
Anxiety.
Hyperlipidemia.
B12 deficiency.
Bowel resection for Crohn's. Cholecystectomy. Partial right lower lobectomy.
Plan
Respiratory decompensation likely due to pneumonia and COPD exacerbation
Supplemental oxygen as needed--3L needed with ambulation, O2 shanda 82%
BiPAP if needed
High flow oxygen if appropriate
Spiriva continues
Symbicort continues
Add nebulizers
Add Decadron
Mucolytic's
Mucus clearing devices
Pleurx catheter drainage per protocol
Check cultures
Empiric antibiotics-Zosyn and vancomycin initiated
Add atypical jgeewpor-kongstsayxtg-eqdoavn dose as it may potentiate Krazati
Will check procal and proBNP
Consider narrowing coverage
MRSA neg can stop vanc
Monitor leukocytosis
Monitor blood sugars
Insulin supplementation as needed
Monitor hemoglobin and platelet count
Transfuse if needed
DVT prophylaxis-on heparin
GI prophylaxis recommended if on steroids for prolonged period
Early nutrition
Early mobilization
Reviewed with emergency room nursing
Outpatient pulmonary feflxd-qg-bbmyvca with Dr. Mccabe at [facility]-May benefit from comanagement by local automotive drivability technician
Diagnostic data:
Chest x-ray 02/09/2016-NAD
Chest x-ray 07/20/2020-NAD
Chest x-ray 07/06/22-3.2 cm asymmetrical opacification inferior aspect right middle lobe, moderate symmetrical bilateral lung hyperinflation
Chest x-ray 10/30/20238291-qsgwz-dsjxn chest tube present, improved opacification in the right lung
Chest x-ray 11/21/2023-small right pleural effusion improved, stable right-sided chest tube
PET scan 07/17/2022-hypermetabolic spiculated mass right lower lobe anteriorly-SUV 8.5 and delayed 7.9, 8 mm right upper lobe nodule laterally with SUV 1.6 and 1.5 delayed, 2 mm right upper lobe nodule as well as 4 mm right lower lobe nodule, no
evidence for metastatic disease
CT chest 02/09/2016-no central pulmonary embolism, no evidence for thoracic dissection, right middle lobe consolidation suggestive of pneumonia, calcified plaque celiac access
CT chest-no pulmonary embolism, small right pleural effusion, mild centrilobular emphysema
CT chest 10/30/2023-no evidence for pulm embolism, right-sided pleural catheter with small to moderate right pleural effusion
CT chest 11/22/2023-no pulm embolism, minimal decrease in size of right pleural effusion, right-sided pleural catheter in place, increased airspace disease bilaterally consistent with pneumonia
Brain MRI 10/29/2023-no evidence of parenchymal mass or infarct
Subjective Data
-
Date of Service:
Date of Service: November 24, 2023
Chief Complaint: Pulmonary Follow Up
Subjective:
feels her SOB is better but still [place]
no new complaints
Objective Data
Data Reviewed
Vital Signs / I&O / Oxygen:
Vital Signs
Temp Pulse Resp BP Pulse Ox
98.0 F 112 20 118/75 91
11/24/23 08:04 11/24/23 09:14 11/24/23 09:14 11/24/23 08:26 11/24/23 09:14
Intake and Output
11/23/23 11/24/23 11/25/23
06:59 06:59 07:59
Intake Total 250 / 250 2601 / 2601
Balance 250 / 250 2601 / 2601
SaO2 91
Nasal Cannula flow liters per 4
minute
Physical Exam
General: Comfortable and Other (NAD, thin appearing)
HEENT: Normocephalic, Anicteric and Moist Mucous Membranes
Cardiovascular: S1-S2 and Regular Rhythm
Respiratory: Clear (overall diminished) and Non-Labored Respirations
GI: Soft, Non Distended and Non Tender
Neurology: Awake, Alert, Oriented, AO x 3 and No Motor Deficits
Skin: Warm and Dry
Labs/Micro/Reports
Lab Data
11/23/23 05:39
11/23/23 05:39
Microbiology
11/23/23 10:06 Nose Nasal Screen MRSA (PCR) - Final
MRSA not detected - performed by PCR methodology.
11/22/23 19:03 Urine Legionella Urinary Antigen - Final
Negative for Legionella pneumophila Serogroup 1 antigen.
A negative result does not rule out the possiblity of
Legionella infection due to other serogroups or species of
Legionella. Clinical correlation is recommended.
11/22/23 19:03 Urine Streptococcus pneumoniae Antigen (M - Final
Negative for Streptococcus pneumoniae antigen.
A negative result does not exclude infection with
Streptococcus pneumoniae. Clinical correlation is
recommended.
11/22/23 19:38 Nasal Swab Influenza Types A & B (DEANNA) - Final
Negative for Influenza A & B, NAAT
Negative results must be combined with clinical observations
and patient history.
Nucleic Acid Amplification test (NAAT)performed on the
[employer] platform.
[2023-11-24 14:31] VITALS: BP 120/77
[2023-11-24] MEDS: IMODIUM 2 MG PO (15:11)
--- NOTE | 2023-11-24 15:16 | CM ---
IA completed with pt at bedside.
Pt is a 73yr old female admitted with worsening shortness of breath and community acquired PNA.
Pt has had admissions to in Sep and Oct, is followed by [facility] for lung CA, and is seen at home by [facility].
Pt has a pleurx catheter that gets changed every week and she goes to the infusion center in the community for Magnesium and fluid infusions 2xweekly. Pt has O2 through [employer].
Pt lives alone in a 2 story home and is independent with mobility at ADLs prior to admission.
PCP; Marilyn Cortez
Pharm; [facility]
PLAN; Return to home with [facility]
[2023-11-24 15:30] LABS: Procalcitonin 0.08 ng/ml (0.0-0.25)
[2023-11-24 15:32] LABS: NT-proBNP 175 pg/ml
[2023-11-24] MEDS: LUMINAL 64.7999999999999972 MG PO (18:00)
[2023-11-24] MEDS: CRESTOR 5 MG PO (18:00)
[2023-11-24] MEDS: LUVOX 100 MG PO (22:01)
[2023-11-24] MEDS: ATIVAN 1 MG PO (22:02)
[2023-11-24 23:00] VITALS: BP 112/60
[2023-11-25] MEDS: ZOSYN 50 IV ×2 (04:14→09:47)
[2023-11-25 07:17] VITALS: BP 123/65
[2023-11-25] MEDS: LUVOX 50 MG PO (08:26)
[2023-11-25] MEDS: ZESTRIL 2.5 MG PO (08:26)
[2023-11-25] MEDS: CLARITIN 10 MG PO (08:28)
[2023-11-25] MEDS: ZITHROMAX 250 MG PO (08:28)
[2023-11-25] MEDS: VITAMIN C 500 MG PO (08:28)
[2023-11-25] MEDS: SODIUM CHLORIDE 1 GRAM PO ×2 (08:29→20:47)
[2023-11-25] MEDS: TOPROL XL 50 MG PO (08:29)
[2023-11-25] MEDS: KCL 20 MEQ PO (08:29)
[2023-11-25] MEDS: ATIVAN 0.5 MG PO (08:29)
[2023-11-25] MEDS: HEPARIN 5000 UNITS SC ×2 (08:30→20:42)
[2023-11-25] MEDS: NON-FORMULARY ITEM 600 MG PO ×2 (08:30→20:42)
[2023-11-25] MEDS: RESTASIS 0.05% OPHTHALMIC EMULSION 1 DROPS BOTH EYES ×2 (08:30→20:48)
[2023-11-25] MEDS: SYMBICORT 160/4.5 MCG INHALER 2 PUFF INH ×2 (08:33→19:56)
[2023-11-25] MEDS: SPIRIVA RESPIMAT 2.5 MCG 2 PUFF INH (08:33)
[2023-11-25] MEDS: SOLU-MEDROL PF 20 MG IV (09:47)
[2023-11-25] MEDS: VISBIOME 1 CAP PO (09:47)
[2023-11-25 10:06] LABS: Blood Urea Nitrogen 22 mg/dl (7-17); Calcium 8.4 mg/dl (8.4-10.2); Carbon Dioxide 23 mmol/L (22-30); Chloride 97 mmol/L (98-107); Estimated Creatinine Clearance 68 ml/min; Glucose 287 mg/dl (70-99); Potassium 3.5 mmol/L (3.5-5.1); Sodium 127 mmol/L (135-145); eGFR > 60.00
--- NOTE | 2023-11-25 12:13 | W.PN.HOSP.TC ---
Today's Communication/Plan
-
.
Assessment / Plan
Assessment / Plan
Physical Exam
General: no acute respiratory distress
HEENT: NormoCephalic, Moist mucous membranes and Atraumatic
Respiratory: less rales and rhonchi both lungs
Cardiac: S1/S2 and Regular Rhythm; No Murmur or Rub
GI: Soft, Non Tender, Non Distended and Normal Bowel Sounds; No Organomegaly
Rectal: Deferred by Provider
Musculoskeletal: No Clubbing, No Cyanosis and No Edema
Skin: No Rash
Neuro: Nonfocal/grossly intact
Psych: no agitation
# Acute COPD exacerbation
Per further testing with negative Procalcitonin and improvement with steroid, less likely PNA
will stop IV Abx
c/w IV steroid and Nebulizer TX Bilateral community-acquired pneumonia in the setting of immunosuppression
She is feeling better, less cough, less exertional sob
-CT chest showed no evidence of pulm embolism, minimal decrease in size of right pleural effusion, increased bilateral airspace disease consistent with pneumonia?
-COVID-negative, influenza negative
-Status post vancomycin/Zosyn/ low dose Zithromax. On probiotic
- Negative MRSA screen, Stopped Vancomycin. Negative for Legionella.
- Appreciate pulmonary input
#History of non-small cell lung cancer status post partial lobectomy
- I spoke with Dr Mirna Lugo at [place] [phone] regarding Krazati. Can be resumed while treating pneumonia but recommend to consider possible medication induced pneumonitis if no improvement despite antibiotic treatment.
# Medication induced anemia and thrombocytopenia.
No hypotension. No indication for blood transfusion. No bruising noted
# Hypokalemia, replaced.
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
-Continue salt tablets
Tolvaptan has drug interaction with her chronic psych meds/ seizure medicine. Will c/w with fluid restriction.
# Hypomagnesemia, replace, recheck in a.m.
History of chronic right pleural effusion status post pleurodesis/Pleurx catheter
-Exchange 11/21/23 which patient does weekly
Former smoker
Crohn's disease status post colostomy
History of hypokalemia/hypomagnesemia secondary to colostomy losses
-Receives magnesium infusion/IV fluids twice a week
B12 deficiency
-Continue B12
Essential hypertension
-Continue lisinopril, metoprolol
Seizure history
-Continue phenobarbital
Anxiety
-Continue fluvoxamine, Ativan
Hyperlipidemia
-Continue statin
# code status, changed to full code based on pt's wishes.
DVT prophylaxis�heparin
Regular diet
Total time spent to see the patient, examine the patient on the floor, review data and lab results, discuss treatment plan with patient, nursing staff around 57 minutes
Anticipated Discharge: 24 - 48 hours
Subjective/Interval History
-
Date of Service: November 25, 2023
She feels better
Objective Data
-
Labs:
Laboratory Results
11/25/23
09:24
Sodium 127 L
Potassium 3.5
Chloride 97 L
Carbon Dioxide 23
BUN 22 H
Creatinine 0.4 L
Glucose 287 H
Calcium 8.4
Vital Signs:
Vital Signs
Temp Pulse Resp BP Pulse Ox
97.4 F 105 16 123/65 93
11/25/23 07:17 11/25/23 07:17 11/25/23 08:43 11/25/23 07:17 11/25/23 08:56
I&O
11/24/23 11/25/23 11/26/23
05:59 06:59 06:59
Intake Total
Balance
--- NOTE | 2023-11-25 12:29 | W.PN.PUL3 ---
Addendum entered and electronically signed by Nissa Flores DO 11/25/23 14:19:
Sputum culture is pending, can adjust abx if needed pending results
Original Note:
Today's Communication / Plan
-
ProBNP and procal neg, patient want to keep abx
I think we can step down to augmentin course
Reduce steroids, transition to PO
Local pulmonary FU discussed with patient, information left in chart
Assessment
-
73-year-old female former smoker with underlying COPD and history of lung cancer status post partial right lower lobectomy with recurrence status post chemo, recurrent pleural effusions status post Pleurx catheter who presented with increasing
shortness of breath felt to have a COPD exacerbation-pulmonary consulted for COPD exacerbation 11/23/2023.
COPD with acute exacerbation
Multifocal uqsolwpqn-qpluxnyie-xariflhn in immuno compromised patient
Recurrent right pleural effusion status post Pleurx catheter
Frwcvq-wrevnjhugy-frbxjjkkmg 9.8
Thrombocytopenia-platelet count 105
Hyponatremia-serum sodium 128
Mild transaminitis
Conditions present prior to admission:
Recent hospitalization 11/01/2023-hypoxemic respiratory failure, COPD exacerbation, electrolyte replacement
COPD-followed by Dr. Mccabe at [facility]-maintained on Breo and Spiriva
Former smoker.
Lung cancer status post partial right lower lobectomy with recurrence, KRAS positive status post chemo/immuno therapy-followed by Dr. Mccabe at [facility]
Recurrent right pleural effusion status post Pleurx catheter.
Crohn's disease status post colostomy.
Hypertension.
Seizure history.
Anxiety.
Hyperlipidemia.
B12 deficiency.
Bowel resection for Crohn's. Cholecystectomy. Partial right lower lobectomy.
Plan
Respiratory decompensation likely due to pneumonia and COPD exacerbation
Supplemental oxygen as needed--3L needed with ambulation, O2 shanda 82%
BiPAP if needed
High flow oxygen if appropriate
Spiriva continues
Symbicort continues
Add nebulizers
Add Decadron
Mucolytic's
Mucus clearing devices
Pleurx catheter drainage per protocol
Check cultures
Empiric antibiotics-Zosyn and vancomycin initiated
Add atypical kgowctlx-pjbvcvrtifsi-entsdxu dose as it may potentiate Krazati
procal and proBNP neg
Consider narrowing coverage to augmentin
MRSA neg can stop vanc
Monitor leukocytosis
Monitor blood sugars
Insulin supplementation as needed
Monitor hemoglobin and platelet count
Transfuse if needed
DVT prophylaxis-on heparin
GI prophylaxis recommended if on steroids for prolonged period
Early nutrition
Early mobilization
Reviewed with emergency room nursing
Outpatient pulmonary sfjvxt-vt-ioojhnn with Dr. Mccabe at [facility]-May benefit from comanagement by local pharmacy intake technician
Diagnostic data:
Chest x-ray 02/09/2016-NAD
Chest x-ray 07/20/2020-NAD
Chest x-ray 07/06/22-3.2 cm asymmetrical opacification inferior aspect right middle lobe, moderate symmetrical bilateral lung hyperinflation
Chest x-ray 10/30/20234728-jzixi-gnpnz chest tube present, improved opacification in the right lung
Chest x-ray 11/21/2023-small right pleural effusion improved, stable right-sided chest tube
PET scan 07/17/2022-hypermetabolic spiculated mass right lower lobe anteriorly-SUV 8.5 and delayed 7.9, 8 mm right upper lobe nodule laterally with SUV 1.6 and 1.5 delayed, 2 mm right upper lobe nodule as well as 4 mm right lower lobe nodule, no
evidence for metastatic disease
CT chest 02/09/2016-no central pulmonary embolism, no evidence for thoracic dissection, right middle lobe consolidation suggestive of pneumonia, calcified plaque celiac access
CT chest-no pulmonary embolism, small right pleural effusion, mild centrilobular emphysema
CT chest 10/30/2023-no evidence for pulm embolism, right-sided pleural catheter with small to moderate right pleural effusion
CT chest 11/22/2023-no pulm embolism, minimal decrease in size of right pleural effusion, right-sided pleural catheter in place, increased airspace disease bilaterally consistent with pneumonia
Brain MRI 10/29/2023-no evidence of parenchymal mass or infarct
Subjective Data
-
Date of Service:
Date of Service: November 25, 2023
Chief Complaint: Pulmonary Follow Up
Subjective:
no new complaints
feels her breathing is about the same
Objective Data
Data Reviewed
Vital Signs / I&O / Oxygen:
Vital Signs
Temp Pulse Resp BP Pulse Ox
97.4 F 105 16 123/65 93
11/25/23 07:17 11/25/23 07:17 11/25/23 08:43 11/25/23 07:17 11/25/23 08:56
Intake and Output
11/24/23 11/25/23 11/26/23
05:59 06:59 06:59
Intake Total
Balance
SaO2 93
Nasal Cannula flow liters per 3
minute
Physical Exam
General: Comfortable and Other (NAD, thin appearing)
HEENT: Normocephalic, Anicteric and Moist Mucous Membranes
Cardiovascular: S1-S2 and Regular Rhythm
Respiratory: Clear (overall diminished) and Non-Labored Respirations
GI: Soft, Non Distended and Non Tender
Neurology: Awake, Alert, Oriented, AO x 3 and No Motor Deficits
Skin: Warm and Dry
Labs/Micro/Reports
Lab Data
11/23/23 05:39
11/25/23 09:24
Microbiology
11/24/23 18:10 Sputum Gram Stain - Preliminary
11/23/23 10:06 Nose Nasal Screen MRSA (PCR) - Final
MRSA not detected - performed by PCR methodology.
11/22/23 19:03 Urine Legionella Urinary Antigen - Final
Negative for Legionella pneumophila Serogroup 1 antigen.
A negative result does not rule out the possiblity of
Legionella infection due to other serogroups or species of
Legionella. Clinical correlation is recommended.
11/22/23 19:03 Urine Streptococcus pneumoniae Antigen (M - Final
Negative for Streptococcus pneumoniae antigen.
A negative result does not exclude infection with
Streptococcus pneumoniae. Clinical correlation is
recommended.
11/22/23 19:38 Nasal Swab Influenza Types A & B (DEANNA) - Final
Negative for Influenza A & B, NAAT
Negative results must be combined with clinical observations
and patient history.
Nucleic Acid Amplification test (NAAT)performed on the
[employer] platform.
[2023-11-25] MEDS: MAGNESIUM SULFATE 50 IV (12:51)
[2023-11-25 15:20] VITALS: BP 98/56
[2023-11-25] MEDS: LUMINAL 64.7999999999999972 MG PO (17:44)
[2023-11-25] MEDS: CRESTOR 5 MG PO (17:44)
[2023-11-25] MEDS: AUGMENTIN 875 MG/125 MG 1 TABLET PO (20:42)
[2023-11-25] MEDS: LUVOX 100 MG PO (20:44)
[2023-11-25] MEDS: ATIVAN 1 MG PO (22:10)
[2023-11-25 23:00] VITALS: BP 130/64
[2023-11-26 07:20] VITALS: BP 145/93
--- NOTE | 2023-11-26 07:31 | PTCARENOTE ---
BECCA Juarez ordered BMP and magnesium levels for the AM.
[2023-11-26] MEDS: SPIRIVA RESPIMAT 2.5 MCG 2 PUFF INH (07:35)
[2023-11-26] MEDS: SYMBICORT 160/4.5 MCG INHALER 2 PUFF INH ×2 (07:35→19:44)
--- NOTE | 2023-11-26 08:07 | W.PN.PUL3 ---
Today's Communication / Plan
-
ProBNP and procal neg, patient want to keep abx --> would continue a 10-14 day course of ABx
Walking pulse ox prior to discharge
Prolonged prednisone taper --> 40mg and reduce by 10mg every 4th day until off
Local pulmonary FU discussed with patient, information left in chart
Assessment
-
73-year-old female former smoker with underlying COPD and history of lung cancer status post partial right lower lobectomy with recurrence status post chemo, recurrent pleural effusions status post Pleurx catheter who presented with increasing
shortness of breath felt to have a COPD exacerbation-pulmonary consulted for COPD exacerbation 11/23/2023.
COPD (moderate severity at baseline) with acute exacerbation; also upper lobe predominant intralobular septal thickening (stable) with patchy opacities in b/l upper lobes and superior LLL (new - compared to prior CTA chest on 10/30/2023)
Multifocal ybehmxgrf-cxoxklsye-nibwcluz in immunocompromised patient - of note, Krazati itself can cause PNA (24%), cough (24%) and dyspnea (35%) as adverse reactions
Recurrent right pleural effusion status post Pleurx catheter
Gujavx-ocoozzmfqp-roltosvuzy 9.8 on 11/23/2023
Thrombocytopenia-platelet count 105 on 11/23/2023
Hyponatremia-serum sodium 131 today
Mild transaminitis
Hyperglycemia
Conditions present prior to admission:
Recent hospitalization 11/01/2023-hypoxemic respiratory failure, COPD exacerbation, electrolyte replacement
COPD-followed by Dr. Mccabe at [facility]-maintained on Breo and Spiriva
Former smoker.
Lung cancer s/p partial RLL lobectomy with recurrence, KRAS positive status post chemo/immuno therapy-followed by Dr. Mccabe at [facility]
Recurrent right pleural effusion status post Pleurx catheter.
Crohn's disease status post colostomy.
Hypertension.
Seizure history.
Anxiety.
Hyperlipidemia.
B12 deficiency.
Bowel resection for Crohn's. Cholecystectomy. Partial right lower lobectomy.
Plan
Respiratory decompensation likely due to pneumonia and COPD exacerbation
Supplemental oxygen as needed and titrate to keep SpO2 >88% and <96% --> walking pulse ox prior to discharge
BiPAP if needed --> no need for this currently
Continue Spiriva and Symbicort 160mcg --> resume Breo and Spiriva upon discharge
prn xopenex
s/p decadron 4mg IV q12hr x 2 doses on 11/23 --> start PO prednisone today at 40mg and wean by 10mg every 4th day until off
Mucolytics
Mucus clearing devices
Pleurx catheter drainage per protocol --> she says she drains it usually once a week and usually gets 50-75cc of fluid
She should follow up with her Banking Analyst as an outpatient to discuss pleurodesis, however now that she has a multifocal PNA, would wait until current infection has fully resolved before performing any thoracic procedure as pleurodesis success
will be unlikely unless all the pleural fluid is drained and there is no active infection
Continue Krazati
Follow up cultures (sputum, and would check blood Cx); legionella and Strep pneumonia are negative
Empiric antibiotics-Zosyn and vancomycin initiated --> She is on Day #2 of Augmentin s/p vanc/zosyn (since 11/21) and s/p Azithro x 2 doses
procal and proBNP neg
MRSA neg --> IV vanc DC'd
Trend leukocytosis
Monitor blood sugars with goal BG 140-180mg/dL
Insulin supplementation as needed
Monitor hemoglobin and platelet count
Transfuse if needed to keep Hb>7, plt>20k
DVT prophylaxis-on heparin
GI prophylaxis recommended if on steroids for prolonged period
Early nutrition
Early mobilization
Outpatient pulmonary follow-up recommended - Follows with Dr. Mccabe at [facility] via [facility]-May benefit from comanagement by local auto hauler as she complains that it is difficult to get down to that location.
This encounter requires a high level of medical decision making as I personally reviewed her prior chest imaging including CXR from 11/21/2023, her prior PET CT scan from June 2022, her prior CT chest from 11/22/2023, and her PFTs from 07/31/2022. I
also reviewed her outpatient pulmonary office notes from the [facility], and took this documentation and imaging into account when formulating plan as above.
Diagnostic data:
Chest x-ray 02/09/2016-NAD
Chest x-ray 07/20/2020-NAD
Chest x-ray 07/06/22-3.2 cm asymmetrical opacification inferior aspect right middle lobe, moderate symmetrical bilateral lung hyperinflation
Chest x-ray 10/30/20235767-xjzbm-hwgcg chest tube present, improved opacification in the right lung
Chest x-ray 11/21/2023-small right pleural effusion improved, stable right-sided chest tube
PET/CT Whole Body skull-mid thigh 07/17/2022-hypermetabolic spiculated mass right lower lobe anteriorly-SUV 8.5 and delayed 7.9, 8 mm right upper lobe nodule laterally with SUV 1.6 and 1.5 delayed, 2 mm right upper lobe nodule as well as 4 mm right
lower lobe nodule, no evidence for metastatic disease
CT chest 02/09/2016-no central pulmonary embolism, no evidence for thoracic dissection, right middle lobe consolidation suggestive of pneumonia, calcified plaque celiac access
CT chest-no pulmonary embolism, small right pleural effusion, mild centrilobular emphysema
CT chest 10/30/2023-no evidence for pulm embolism, right-sided pleural catheter with small to moderate right pleural effusion
CTA chest 11/22/2023-no pulm embolism, minimal decrease in size of right pleural effusion, right-sided pleural catheter in place, increased airspace disease bilaterally consistent with pneumonia
Brain MRI 10/29/2023-no evidence of parenchymal mass or infarct
PFTs: 07-31-2022 (performed at [facility] office)
FEV1/FVC: 63 (83% predicted)
FEV1: 1.33L (64%)
FVC: 2.11L (76%)
T% (4.51L)
RV: 108%
DLco: 42%
VA: 95% (4.38L)
DLco/VA:48%
Subjective Data
-
Date of Service:
Date of Service: November 26, 2023
Chief Complaint: Pulmonary Follow Up
Subjective:
Patient was seen this morning and was sitting in a chair in [facility]. At the time of my evaluation, her nasal cannula was off of her nose and below her chin and she was breathing comfortably.. Her main complaint today is fatigue, and says that her
shortness of breath is better today. She denies headache, chest pain, abdominal pain, fevers or chills.
Review of Systems
General: Other (12 point ROS performed and is negative unless mentioned above.)
Objective Data
Data Reviewed
Vital Signs / I&O / Oxygen:
Vital Signs
Temp Pulse Resp BP Pulse Ox
97.7 F 98 18 145/93 96
11/26/23 07:20 11/26/23 08:52 11/26/23 08:00 11/26/23 08:52 11/26/23 08:00
Intake and Output
11/25/23 11/26/23 11/27/23
06:59 06:59 06:59
Intake Total 1440 / 1440
Balance 1440 / 1440
SaO2 96
Nasal Cannula flow liters per 2
minute
Physical Exam
General: Comfortable and Other (NAD, thin appearing)
HEENT: Normocephalic, Anicteric and Moist Mucous Membranes
Cardiovascular: S1-S2, Regular Rhythm and Peripheral Edema (negative)
Respiratory: Clear (Diminished BS), Wheeze (negative), Crackles (negative), Rhonchi (negative), Non-Labored Respirations, Stridor (negative), Other (Right-sided Pleurx in place covered with gauze) and Other (Reduced breath sounds at R-base)
GI: Soft, Non Distended, Non Tender and Normal Bowel Sounds
Neurology: AO x 3 and No Motor Deficits
Skin: Warm and Dry
Labs/Micro/Reports
Lab Data
11/23/23 05:39
11/26/23 08:06
Microbiology
11/24/23 18:10 Sputum Respiratory Culture - Preliminary
11/24/23 18:10 Sputum Gram Stain - Preliminary
11/23/23 10:06 Nose Nasal Screen MRSA (PCR) - Final
MRSA not detected - performed by PCR methodology.
11/22/23 19:03 Urine Legionella Urinary Antigen - Final
Negative for Legionella pneumophila Serogroup 1 antigen.
A negative result does not rule out the possiblity of
Legionella infection due to other serogroups or species of
Legionella. Clinical correlation is recommended.
11/22/23 19:03 Urine Streptococcus pneumoniae Antigen (M - Final
Negative for Streptococcus pneumoniae antigen.
A negative result does not exclude infection with
Streptococcus pneumoniae. Clinical correlation is
recommended.
[2023-11-26] MEDS: DELTASONE 40 MG PO (08:51)
[2023-11-26] MEDS: RESTASIS 0.05% OPHTHALMIC EMULSION 1 DROPS BOTH EYES ×2 (08:51→19:58)
[2023-11-26] MEDS: CLARITIN 10 MG PO (08:51)
[2023-11-26] MEDS: VISBIOME 1 CAP PO (08:51)
[2023-11-26] MEDS: TOPROL XL 50 MG PO (08:52)
[2023-11-26] MEDS: ATIVAN 0.5 MG PO (08:52)
[2023-11-26] MEDS: SODIUM CHLORIDE 1 GRAM PO ×2 (08:52→19:58)
[2023-11-26] MEDS: LUVOX 50 MG PO (08:52)
[2023-11-26] MEDS: KCL 20 MEQ PO (08:52)
[2023-11-26] MEDS: AUGMENTIN 875 MG/125 MG 1 TABLET PO ×2 (08:52→19:58)
[2023-11-26] MEDS: VITAMIN C 500 MG PO (08:52)
[2023-11-26] MEDS: ZESTRIL 2.5 MG PO (08:52)
[2023-11-26] MEDS: HEPARIN 5000 UNITS SC ×2 (08:53→19:59)
[2023-11-26] MEDS: NON-FORMULARY ITEM 600 MG PO ×2 (08:54→19:59)
[2023-11-26 09:17] LABS: Blood Urea Nitrogen 23 mg/dl (7-17); Calcium 8.8 mg/dl (8.4-10.2); Carbon Dioxide 24 mmol/L (22-30); Chloride 98 mmol/L (98-107); Estimated Creatinine Clearance 68 ml/min; Glucose 221 mg/dl (70-99); Magnesium 1.3 mg/dl (1.6-2.3); Potassium 3.9 mmol/L (3.5-5.1); Sodium 131 mmol/L (135-145); eGFR > 60.00
[2023-11-26] MEDS: IMODIUM 2 MG PO (11:15)
--- NOTE | 2023-11-26 12:59 | CM ---
Patient seen, reports no new concerns. Patient hopeful to discharge home. CM will continue to follow for discharge planning needs.
Plan; Return to home with [facility]
[2023-11-26] MEDS: ZOFRAN 8 MG PO (13:13)
[2023-11-26] MEDS: MAGNESIUM SULFATE 50 IV (14:12)
[2023-11-26 15:20] VITALS: BP 121/72
--- NOTE | 2023-11-26 17:02 | W.PN.HOSP.TC ---
Today's Communication/Plan
-
Continue oral antibiotics
Continue steroid taper.
Continue oxygen supplementation
Replete magnesium and potassium following BMP in AM.
Discharge planing
Assessment / Plan
Assessment / Plan
Impression:
Acute on chronic hypoxic respiratory failure
Multifocal pneumonia community-acquired versus Krazati induced pneumonitis
Non-small cell lung CA
Recurrent right pleural effusion status post Pleurx catheter.
Chronic anemia, normocytic multifactorial due to chronic inflammation and chemotherapy.
Chronic hyponatremia.
Mild transaminitis.
Hypokalemia
Hypomagnesemia
Conditions prior to admission:
COPD
Former smoker
Lung carcinoma non-small cell lung CA status post partial right lower lobe lobectomy with recurrence. KRAS + on krazati.
Recurrent right pleural effusion status post Pleurx
Crohn's disease with history of colostomy
Essential hypertension
History of seizure disorder
Anxiety.
Dyslipidemia
Plan
Acute on chronic hypoxic respiratory failure secondary to pneumonia/pneumonitis
Per further testing with negative Procalcitonin and improvement with steroid, less likely PNA
Antibiotic consolidated to Augmentin
c/w IV steroid and Nebulizer [place] Bilateral community-acquired pneumonia in the setting of immunosuppression
She is feeling better, less cough, less exertional sob
-CT chest showed no evidence of pulm embolism, minimal decrease in size of right pleural effusion, increased bilateral airspace disease consistent with pneumonia?
-COVID-negative, influenza negative
-Status post vancomycin/Zosyn/ low dose Zithromax. On probiotic
- Negative MRSA screen, Stopped Vancomycin. Negative for Legionella.
- Appreciate pulmonary input
-Currently on nasal cannula 2 L oxygen which is baseline
#History of non-small cell lung cancer status post partial lobectomy
- I spoke with Dr Mirna Lugo at [place] [phone] regarding Krazati. Can be resumed while treating pneumonia but recommend to consider possible medication induced pneumonitis if no improvement despite antibiotic treatment.
# Medication induced anemia and thrombocytopenia.
No hypotension. No indication for blood transfusion. No bruising noted
# Hypokalemia, replaced.
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
-Continue salt tablets
Tolvaptan has drug interaction with her chronic psych meds/ seizure medicine. Will c/w with fluid restriction.
# Hypomagnesemia, replace, recheck in a.m.
History of chronic right pleural effusion status post pleurodesis/Pleurx catheter
-Exchange 11/21/23 which patient does weekly
Former smoker
Crohn's disease status post colostomy
History of hypokalemia/hypomagnesemia secondary to colostomy losses
-Receives magnesium infusion/IV fluids twice a week
B12 deficiency
-Continue B12
Essential hypertension
-Continue lisinopril, metoprolol
Seizure history
-Continue phenobarbital
Anxiety
-Continue fluvoxamine, Ativan
Hyperlipidemia
-Continue statin
# code status, changed to full code based on pt's wishes.
DVT prophylaxis�heparin
Regular diet
Total time spent to see the patient, examine the patient on the floor, review data and lab results, discuss treatment plan with patient, nursing staff around 57 minutes
Anticipated Discharge: 24 - 48 hours
Subjective/Interval History
-
Date of Service: November 26, 2023
Objective Data
-
Labs:
Laboratory Results
11/26/23
08:06
Sodium 131 L
Potassium 3.9
Chloride 98
Carbon Dioxide 24
BUN 23 H
Creatinine 0.6
Glucose 221 H
Calcium 8.8
Vital Signs:
Vital Signs
Temp Pulse Resp BP Pulse Ox
97.3 F 98 16 121/72 94
11/26/23 15:20 11/26/23 15:20 11/26/23 15:20 11/26/23 15:20 11/26/23 15:20
I&O
11/25/23 11/26/23 11/27/23
06:59 06:59 06:59
Intake Total 1440 / 1440
Balance 1440 / 1440
Physical Exam
-
General: Well Developed and No Apparent Distress
HEENT: Normocephalic, Atraumatic and Moist Mucous Membranes
Respiratory: Clear to Auscultation
Cardiac: Regular Rhythm and S1/S2; Negative Murmur, Rub or Gallop
GI: Soft, Nontender, Nondistended and Normal Bowel Sounds; Negative Organomegaly
Rectal: Deferred by Provider
Musculoskeletal: No Clubbing, No Cyanosis and No Edema
Skin: Negative Rash
Neuro: Nonfocal/Grossly Intact
[2023-11-26] MEDS: CRESTOR 5 MG PO (17:30)
[2023-11-26] MEDS: LUMINAL 64.7999999999999972 MG PO (17:30)
[2023-11-26] MEDS: LUVOX 100 MG PO (21:36)
[2023-11-26] MEDS: ATIVAN 1 MG PO (21:36)
[2023-11-26 23:31] VITALS: BP 120/70
[2023-11-27 07:00] VITALS: BP 130/67
[2023-11-27] MEDS: SPIRIVA RESPIMAT 2.5 MCG 2 PUFF INH (07:03)
[2023-11-27] MEDS: SYMBICORT 160/4.5 MCG INHALER 2 PUFF INH (07:04)
[2023-11-27 07:41] LABS: Hematocrit 32.5 % (37.0-47.0); Hemoglobin 10.2 g/dL (12.0-16.0); Mean Corp Hgb Conc. 31.4 g/dL (33.0-37.0); Mean Corpuscular Hgb 24.3 pg (27.0-31.0); Mean Corpuscular Volume 77.4 fL (81.0-99.0); Mean Platelet Volume 10.3 fL (7.4-10.4); Platelet Count 138 10^3/uL (130-400); Red Cell Dist. Width 18.1 % (11.5-14.5)
[2023-11-27 08:07] LABS: ALT (SGPT) 57 U/L (0-35); AST (SGOT) 39 U/L (14-36); Alkaline Phosphatase 128 U/L (38-126); Blood Urea Nitrogen 29 mg/dl (7-17); Calcium 8.6 mg/dl (8.4-10.2); Carbon Dioxide 29 mmol/L (22-30); Chloride 102 mmol/L (98-107); Direct Bilirubin 0.2 mg/dl (0.0-0.4); Estimated Creatinine Clearance 68 ml/min; Glucose 78 mg/dl (70-99); Magnesium 1.5 mg/dl (1.6-2.3); Phosphorus 2.9 mg/dl (2.5-4.5); Potassium 4.4 mmol/L (3.5-5.1); Sodium 132 mmol/L (135-145); Total Bilirubin 0.7 mg/dl (0.2-1.3); Total Protein 5.6 g/dl (6.3-8.2); eGFR > 60.00
[2023-11-27] MEDS: HEPARIN 5000 UNITS SC (08:40)
[2023-11-27] MEDS: CLARITIN 10 MG PO (08:40)
[2023-11-27] MEDS: ATIVAN 0.5 MG PO (08:40)
[2023-11-27] MEDS: DELTASONE 40 MG PO (08:40)
[2023-11-27] MEDS: AUGMENTIN 875 MG/125 MG 1 TABLET PO (08:40)
[2023-11-27] MEDS: NON-FORMULARY ITEM 600 MG PO (08:41)
[2023-11-27] MEDS: RESTASIS 0.05% OPHTHALMIC EMULSION 1 DROPS BOTH EYES (08:41)
[2023-11-27] MEDS: LUVOX 50 MG PO (08:41)
[2023-11-27] MEDS: KCL 20 MEQ PO (08:41)
[2023-11-27] MEDS: ZESTRIL 2.5 MG PO (08:42)
[2023-11-27] MEDS: SODIUM CHLORIDE 1 GRAM PO (08:42)
[2023-11-27] MEDS: TOPROL XL 50 MG PO (08:42)
[2023-11-27] MEDS: VITAMIN C 500 MG PO (08:42)
[2023-11-27] MEDS: ZOFRAN 8 MG PO (08:42)
[2023-11-27] MEDS: VISBIOME 1 CAP PO (08:42)
--- NOTE | 2023-11-27 08:43 | W.PN.PUL3 ---
Today's Communication / Plan
-
ProBNP and procal neg, patient want to keep abx --> would give a 10-14 total day course of ABx
Walking pulse ox prior to discharge
Prolonged prednisone taper --> 40mg and reduce by 10mg every 4th day until off
Patient is being prepared for discharge home. Pulmonary service will now sign off. Please reconsult if there are any additional questions/concerns, or if respiratory status deteriorates. Outpatient follow-up will be arranged as she does
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
Assessment
-
73-year-old female former smoker with underlying COPD and history of lung cancer status post partial right lower lobectomy with recurrence status post chemo, recurrent pleural effusions status post Pleurx catheter who presented with increasing
shortness of breath felt to have a COPD exacerbation-pulmonary consulted for COPD exacerbation 11/23/2023.
COPD (moderate severity at baseline) with acute exacerbation; also upper lobe predominant intralobular septal thickening (stable) with patchy opacities in b/l upper lobes and superior LLL (new - compared to prior CTA chest on 10/30/2023)
Multifocal brcmlkdpj-xgtbtwfnq-ouisrpkb in immunocompromised patient - of note, Krazati itself can cause PNA (24%), cough (24%) and dyspnea (35%) as adverse reactions
Recurrent right pleural effusion status post Pleurx catheter
Lkxbbb-zthdximbma-lyzvznsiiu 9.8 on 11/23/2023
Thrombocytopenia-platelet count 105 on 11/23/2023
Hyponatremia-serum sodium 132 today (baseline Na 130-134)
Mild transaminitis
Hyperglycemia - improved
Conditions present prior to admission:
Recent hospitalization 11/01/2023-hypoxemic respiratory failure, COPD exacerbation, electrolyte replacement
COPD-followed by Dr. Mccabe at [facility]-maintained on Breo and Spiriva
Former smoker.
Lung cancer s/p partial RLL lobectomy with recurrence, KRAS positive status post chemo/immuno therapy-followed by Dr. Mccabe at [facility]
Recurrent right pleural effusion status post Pleurx catheter.
Crohn's disease status post colostomy.
Hypertension.
Seizure history.
Anxiety.
Hyperlipidemia.
B12 deficiency.
Bowel resection for Crohn's. Cholecystectomy. Partial right lower lobectomy.
Plan
Respiratory decompensation likely due to pneumonia and COPD exacerbation
Supplemental oxygen as needed and titrate to keep SpO2 >88% and <96% --> check walking pulse ox prior to discharge
BiPAP if needed --> no need for this currently
Continue Spiriva and Symbicort 160mcg --> resume Breo and Spiriva on discharge
prn xopenex
s/p decadron 4mg IV q12hr x 2 doses on 11/23 --> started PO prednisone on 11/25 at 40mg --> wean by 10mg every 4th day until off
Mucolytics
Mucus clearing devices as needed
Pleurx catheter drainage per protocol --> she says she drains it usually once a week and usually gets 50-75cc of fluid
She should follow up with her [employer] T[employer] Worker as an outpatient to discuss pleurodesis, however now that she has a multifocal PNA, would wait until current infection has fully resolved before performing any thoracic procedure as pleurodesis success
will be unlikely unless all the pleural fluid is drained and there is no active infection
Continue Krazati
Follow up cultures (sputum - 11/23 (growing C. albicans), and blood Cx - 11/25); legionella and Strep pneumonia are negative
Although her sputum culture is growing Nell albicans, patient is not neutropenic, hence this is likely a contaminant/colonization and would continue to monitor.
Empiric antibiotics-Zosyn and vancomycin initiated on 11/21 --> She is on Day #3 of Augmentin s/p vanc/zosyn (11/21 - 11/24) and s/p Azithro x 2 doses
procal and proBNP neg
MRSA neg --> IV vanc DC'd
Trend leukocytosis
Monitor blood sugars with goal BG 140-180mg/dL
Insulin supplementation as needed
Monitor hemoglobin and platelet count
Transfuse if needed to keep Hb>7, plt>20k
DVT prophylaxis-on heparin --> raise dose to 5000 SQ q8hr unless there is concern for bleeding
GI prophylaxis recommended if on steroids for prolonged period
Early nutrition
Early mobilization
Outpatient pulmonary follow-up recommended - Follows with Dr. Mccabe at [facility] via [facility]-May benefit from comanagement by local star route mail driver as she complains that it is difficult to get down to that location.
Patient is being prepared for discharge home. Pulmonary service will now sign off. Thank you for allowing us to be involved in the care of this patient. Please reconsult if there are any additional questions/concerns, or if respiratory status
deteriorates. 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
This encounter requires a moderate level of medical decision making as I personally reviewed her prior chest imaging including CXR from 11/21/2023, her prior PET CT scan from June 2022, her prior CT chest from 11/22/2023, and her PFTs from
07/31/2022. I also reviewed her outpatient pulmonary office notes from the [facility], and took this documentation and imaging into account when formulating plan as above.
Diagnostic data:
Chest x-ray 02/09/2016-NAD
Chest x-ray 07/20/2020-NAD
Chest x-ray 07/06/22-3.2 cm asymmetrical opacification inferior aspect right middle lobe, moderate symmetrical bilateral lung hyperinflation
Chest x-ray 10/30/20238790-dcwbb-sjkdf chest tube present, improved opacification in the right lung
Chest x-ray 11/21/2023-small right pleural effusion improved, stable right-sided chest tube
PET/CT Whole Body skull-mid thigh 07/17/2022-hypermetabolic spiculated mass right lower lobe anteriorly-SUV 8.5 and delayed 7.9, 8 mm right upper lobe nodule laterally with SUV 1.6 and 1.5 delayed, 2 mm right upper lobe nodule as well as 4 mm right
lower lobe nodule, no evidence for metastatic disease
CT chest 02/09/2016-no central pulmonary embolism, no evidence for thoracic dissection, right middle lobe consolidation suggestive of pneumonia, calcified plaque celiac access
CT chest/12/07-no pulmonary embolism, small right pleural effusion, mild centrilobular emphysema
CT chest 10/30/2023-no evidence for pulm embolism, right-sided pleural catheter with small to moderate right pleural effusion
CTA chest 11/22/2023-no pulm embolism, minimal decrease in size of right pleural effusion, right-sided pleural catheter in place, increased airspace disease bilaterally consistent with pneumonia
Brain MRI 10/29/2023-no evidence of parenchymal mass or infarct
PFTs: 07-31-2022 (performed at [facility] office)
FEV1/FVC: 63 (83% predicted)
FEV1: 1.33L (64%)
FVC: 2.11L (76%)
T% (4.51L)
RV: 108%
DLco: 42%
VA: 95% (4.38L)
DLco/VA:48%
Subjective Data
-
Date of Service:
Date of Service: November 27, 2023
Chief Complaint: Pulmonary Follow Up
Subjective:
Patient seen and evaluated today at bedside. She looks well! Ready for discharge home. She is currently on 2 L/min nasal cannula, says her shortness of breath is better today. She has oxygen at home. She denies chest pain, headache, fevers or
chills. No acute events reported from overnight.
Review of Systems
General: Other (12 point ROS performed and is negative unless mentioned above.)
Objective Data
Data Reviewed
Vital Signs / I&O / Oxygen:
Vital Signs
Temp Pulse Resp BP Pulse Ox
97.6 F 95 16 130/67 91
11/27/23 07:00 11/27/23 07:17 11/27/23 07:17 11/27/23 07:00 11/27/23 07:17
Intake and Output
11/26/23 11/27/23 11/28/23
06:59 06:59 06:59
Intake Total 1440 / 1440 600 / 600 480 / 480
Balance 1440 / 1440 600 / 600 480 / 480
SaO2 91
Nasal Cannula flow liters per 2
minute
Physical Exam
General: Comfortable and Other (NAD, thin appearing)
HEENT: Normocephalic, Anicteric and Moist Mucous Membranes
Cardiovascular: S1-S2 and Peripheral Edema (negative)
Respiratory: Clear (Diminished BS), Wheeze (negative), Crackles (negative), Rhonchi (negative), Non-Labored Respirations, Stridor (negative), Other (Right-sided Pleurx in place covered with gauze) and Other (Reduced breath sounds at R-base)
GI: Soft, Non Distended, Non Tender and Normal Bowel Sounds
Neurology: AO x 3 and No Motor Deficits
Skin: Warm and Dry
Labs/Micro/Reports
Lab Data
11/27/23 07:00
11/27/23 07:00
Microbiology
11/24/23 18:10 Sputum Respiratory Culture - Final
Nell albicans
11/24/23 18:10 Sputum Gram Stain - Final
[2023-11-27] MEDS: IMODIUM 2 MG PO (11:04)
--- NOTE | 2023-11-27 11:13 | CM ---
Patient seen bedside, patient reports her son will provide transportation home. IMM reviewed, signed, placed in patients chart. CM sent updated referral to [facility] for patient to resume services upon discharge. CM will continue to follow for
discharge planning needs.
Plan; home with [facility]
[2023-11-27] MEDS: MAGNESIUM SULFATE 50 IV (11:14)
--- NOTE | 2023-11-27 14:35 | W.DS.TRANS ---
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
-
Discharge Instructions:
Discharge Diagnosis/Procedures Impression:
Acute on chronic hypoxic respiratory failure
Multifocal pneumonia community-acquired versus
Krazati induced pneumonitis
Non-small cell lung CA
Recurrent right pleural effusion status post
Pleurx catheter.
Chronic anemia, normocytic multifactorial due to
chronic inflammation and chemotherapy.
Chronic hyponatremia.
Mild transaminitis.
Hypokalemia
Hypomagnesemia
Conditions prior to admission:
COPD
Former smoker
Lung carcinoma non-small cell lung CA status
post partial right lower lobe lobectomy with
recurrence. KRAS + on krazati.
Recurrent right pleural effusion status post
Pleurx
Crohn's disease with history of colostomy
Essential hypertension
History of seizure disorder
Anxiety.
Dyslipidemia
Diet Regular
Instructions:
Stand-Alone Forms:
Changes to Home Medications: Yes
Discharge Medications:
DC Medications w/original date entered in Who@
lisinopril 5 mg tablet 2.5 mg PO DAILY Blood Pressure 03/22/15
cyanocobalamin (vitamin B-12) 1,000 mcg tablet 1,000 mcg IM MONTHLY Supplement 03/12/19
cyclosporine 0.05 % eye drops in a dropperette (Restasis) 1 drp BOTH EYES BID dry eyes 03/12/19
fluvoxamine 50 mg tablet 100 mg PO HS Mental Health/Anxiety 03/12/19
phenobarbital 64.8 mg tablet 64.8 mg PO QPM Neurological Condition 03/12/19
rosuvastatin 5 mg tablet (Crestor) 5 mg PO QPM High Cholesterol 09/26/22
tiotropium bromide 18 mcg capsule with inhalation device (Spiriva with HandiHaler) 1 cap inhalation R DAILY Lung/Breathing Issues 09/26/22
adagrasib 200 mg tablet (Krazati) 600 mg PO BID Cancer 09/17/23
loperamide 2 mg tablet 2 mg PO Q4HPRN PRN diarrhea 09/17/23
metoprolol succinate 50 mg tablet,extended release 24 hr (Toprol XL) 50 mg PO DAILY Heart Disease/Condition 09/17/23
sodium chloride 1,000 mg soluble tablet 1,000 mg PO BID Supplement #60 tabs 09/20/23
ascorbic acid (vitamin C) 500 mg tablet (Vitamin C) 500 mg PO DAILY Supplement 11/09/23
loratadine 10 mg tablet (Claritin) 10 mg PO DAILY Allergies 11/09/23
lorazepam 0.5 mg tablet (Ativan) 0.5 mg PO DAILY anxiety 11/09/23
fluticasone furoate 200 mcg-vilanterol 25 mcg/dose inhalation powder (Breo Ellipta) 1 inh inhalation R DAILY Lung/Breathing Issues 11/22/23
fluvoxamine 50 mg tablet 50 mg PO DAILY Mental Health/Anxiety 11/22/23
levalbuterol tartrate 45 mcg/actuation aerosol inhaler (Xopenex HFA) 1 puff inhalation R Q6HPRN PRN sob 11/22/23
lorazepam 1 mg tablet 1 mg PO BID PRN anxiety 11/22/23
ondansetron HCl 8 mg tablet 8 mg PO [id number] PRN nausea 11/22/23
amoxicillin 875 mg-potassium clavulanate 125 mg tablet 1 tab PO Q12 #14 tabs 11/27/23
prednisone 10 mg tablet 10 mg PO DIRECTED #40 tabs 11/27/23
Home Medication Changes
Antibiotics and steroid taper
Pending Results: No
--- NOTE | 2023-11-27 15:40 | PTCARENOTE ---
IV discontinued. Discharge paperwork printed and reviewed with patient who verbalized understanding. Pt transported off the floor via wheelchair with all belongings from the room.
== END 2023-11-27 15:37 | disposition home health service (06) | DRG 190 ==
LOC: 4 WEST ACU 22:07
PROVIDERS: Internal Medicine; Internal Medicine Critical Care Medicine; Nurse Practitioner Family; Physician Assistant; ADMITTING PHYSICIAN Hospitalist; ATTENDING PHYSICIAN Internal Medicine; CONSULT PHYSICIAN Internal Medicine Critical Care Medicine; EMERGENCY PHYSICIAN Emergency Medicine; FAMILY PHYSICIAN Internal Medicine
DX: J44.1 Chronic obstructive pulmonary disease with (acute) exacerbation (principal); J18.9 Pneumonia, unspecified organism; J96.21 Acute and chronic respiratory failure with hypoxia; K50.90 Crohn's disease, unspecified, without complications; E22.2 Syndrome of inappropriate secretion of antidiuretic hormone; J90 Pleural effusion, not elsewhere classified; D84.9 Immunodeficiency, unspecified; J44.0 Chronic obstructive pulmonary disease with (acute) lower respiratory infection; Z11.52 Encounter for screening for COVID-19; Z66 Do not resuscitate; E83.42 Hypomagnesemia; Z87.891 Personal history of nicotine dependence; Z85.118 Personal history of other malignant neoplasm of bronchus and lung; Z90.2 Acquired absence of lung [part of]; E53.8 Deficiency of other specified B group vitamins; I10 Essential (primary) hypertension; F41.9 Anxiety disorder, unspecified; D50.9 Iron deficiency anemia, unspecified; D69.6 Thrombocytopenia, unspecified; E87.6 Hypokalemia; E78.00 Pure hypercholesterolemia, unspecified; D64.9 Anemia, unspecified
CPT/HCPCS: 71045; 71275; 80048; 80053; 80184; 81003; 81015; 82248; 83735; 83880; 84100; 84145; 84484; 85025; 85027; 85610; 85730; 87040; 87070; 87205; 87449; 87502; 87641; 87811; 87899; 93005; 94640; 94761; 99285; Q9967

== ENCOUNTER → 2023-12-10 14:14 | Outpatient (REF) | payer MEDICARE, OTHER, SELFPAY | LOC: PAVMRI 14:14 | PROVIDERS: ATTENDING PHYSICIAN Internal Medicine Hematology & Oncology; FAMILY PHYSICIAN Internal Medicine | DX: C34.90 Malignant neoplasm of unspecified part of unspecified bronchus or lung (principal) | CPT/HCPCS: 70553; A9575 ==

== ENCOUNTER 2023-12-14 08:19 | Outpatient (RCR) | payer MEDICARE, OTHER, SELFPAY ==
[2023-11-16 09:00] VITALS: BP 107/59
[2023-11-16 09:29] LABS: Blood Urea Nitrogen 37 mg/dl (7-17); Calcium 8.8 mg/dl (8.4-10.2); Carbon Dioxide 21 mmol/L (22-30); Chloride 108 mmol/L (98-107); Glucose 140 mg/dl (70-99); Sodium 136 mmol/L (135-145); eGFR > 60.00
[2023-11-16 09:41] LABS: Potassium 3.5 mmol/L (3.5-5.1)
[2023-11-16] MEDS: MAGNESIUM SULFATE 108 GRAMS IV (09:56)
[2023-11-20 10:15] VITALS: BP 122/72
[2023-11-20 10:40] LABS: % Basophils 0.1 % (0-2); % Eosinophils 0.1 % (0-6); % Immature Granulocytes 0.9 % (0-0.5); % Lymphocytes 12.6 % (20.5-51.1); % Monocytes 6.5 % (1.7-9.3); % Neutrophils 79.8 % (42.2-75.2); Absolute Immature Granulocytes 0.1 10^3/uL (0-0.05); Absolute Monocytes 0.5 10^3/uL (0.1-0.6); Absolute Neutrophils 6.6 10^3/uL (1.4-6.5); Hemoglobin 12.2 g/dL (12.0-16.0); Mean Corp Hgb Conc. 32.1 g/dL (33.0-37.0); Mean Corpuscular Volume 77.9 fL (81.0-99.0); Platelet Count 119 10^3/uL (130-400); Red Blood Cell Count 4.88 10^6/uL (4.20-5.40); Red Cell Dist. Width 17.9 % (11.5-14.5); White Blood Cell Count 8.2 10^3/uL (4.8-10.8)
[2023-11-20 11:08] LABS: ALT (SGPT) 76 U/L (0-35); AST (SGOT) 58 U/L (14-36); Albumin 3.7 g/dl (3.5-5.0); Alkaline Phosphatase 117 U/L (38-126); Blood Urea Nitrogen 32 mg/dl (7-17); Calcium 8.6 mg/dl (8.4-10.2); Carbon Dioxide 24 mmol/L (22-30); Chloride 104 mmol/L (98-107); Direct Bilirubin 0.3 mg/dl (0.0-0.4); Glucose 88 mg/dl (70-99); Magnesium 1.1 mg/dl (1.6-2.3); Potassium 3.9 mmol/L (3.5-5.1); Sodium 132 mmol/L (135-145); Total Bilirubin 0.7 mg/dl (0.2-1.3); Total Protein 6.4 g/dl (6.3-8.2); eGFR > 60.00
[2023-11-20 11:12] LABS: C-Reactive Protein < 5.00 mg/L (0.0-10.00)
[2023-11-20] MEDS: NSS 500 IV (11:30)
[2023-11-20] MEDS: MAGNESIUM SULFATE 106 GRAMS IV (11:51)
[2023-11-20 15:10] VITALS: BP 111/63
[2023-11-25 00:17] LABS: Calprotectin, Fecal 32 ug/g (<=49)
[2023-11-30 08:40] VITALS: BP 113/72
[2023-11-30 09:23] LABS: Magnesium 1.2 mg/dl (1.6-2.3)
[2023-11-30] MEDS: MAGNESIUM SULFATE 106 GRAMS IV (09:53)
[2023-12-04 08:30] VITALS: BP 151/76
[2023-12-04 09:29] LABS: Carbon Dioxide 23 mmol/L (22-30); Chloride 102 mmol/L (98-107); Magnesium 1.1 mg/dl (1.6-2.3); Sodium 132 mmol/L (135-145)
[2023-12-04] MEDS: MAGNESIUM SULFATE 106 GRAMS IV (09:54)
[2023-12-07 09:02] VITALS: BP 117/70
[2023-12-07 09:39] LABS: Magnesium 1.2 mg/dl (1.6-2.3)
[2023-12-07] MEDS: MAGNESIUM SULFATE 106 GRAMS IV (09:55)
[2023-12-07 13:30] VITALS: BP 142/71
[2023-12-11 09:04] VITALS: BP 117/54
[2023-12-11] MEDS: MAGNESIUM SULFATE 108 GRAMS IV (10:03)
[2023-12-14 08:30] VITALS: BP 127/74
[2023-12-14 09:25] LABS: Magnesium 1.1 mg/dl (1.6-2.3)
[2023-12-14] MEDS: MAGNESIUM SULFATE 106 GRAMS IV (09:46)
[2023-12-14 12:47] VITALS: BP 128/76
== END 2023-12-16 23:59 | disposition home or self-care (01) ==
LOC: OID 08:19
PROVIDERS: Internal Medicine Gastroenterology; ATTENDING PHYSICIAN Internal Medicine
DX: E83.42 Hypomagnesemia (principal); E87.1 Hypo-osmolality and hyponatremia; J96.21 Acute and chronic respiratory failure with hypoxia; C34.91 Malignant neoplasm of unspecified part of right bronchus or lung; J18.8 Other pneumonia, unspecified organism; G40.409 Other generalized epilepsy and epileptic syndromes, not intractable, without status epilepticus; E87.6 Hypokalemia; J44.9 Chronic obstructive pulmonary disease, unspecified
CPT/HCPCS: 36415; 80048; 80051; 80076; 82570; 83735; 83993; 85025; 86140; 96361; 96365; 96366

== ENCOUNTER 2023-12-30 11:12 | Inpatient (IN) | payer MEDICARE, OTHER, SELFPAY ==
[2023-12-27 09:52] LABS: % Basophils 0.1 % (0-2); % Eosinophils 0.1 % (0-6); % Immature Granulocytes 0.3 % (0-0.5); % Lymphocytes 4.8 % (20.5-51.1); % Monocytes 0.7 % (1.7-9.3); Absolute Lymphocytes 0.3 10^3/uL (1.2-3.4); Absolute Monocytes 0.1 10^3/uL (0.1-0.6); Absolute Neutrophils 6.6 10^3/uL (1.4-6.5); Hematocrit 33.2 % (37.0-47.0); Hemoglobin 10.5 g/dL (12.0-16.0); Mean Corp Hgb Conc. 31.6 g/dL (33.0-37.0); Mean Corpuscular Hgb 24.4 pg (27.0-31.0); Mean Corpuscular Volume 77.2 fL (81.0-99.0); Mean Platelet Volume 9.2 fL (7.4-10.4); Nucleated Red Blood Cells % 0 %; Platelet Count 184 10^3/uL (130-400); White Blood Cell Count 7.1 10^3/uL (4.8-10.8)
[2023-12-27 10:10] LABS: ALT (SGPT) 42 U/L (0-35); AST (SGOT) 35 U/L (14-36); Albumin 3.3 g/dl (3.5-5.0); Alkaline Phosphatase 83 U/L (38-126); Blood Urea Nitrogen 18 mg/dl (7-17); Calcium 8.9 mg/dl (8.4-10.2); Carbon Dioxide 25 mmol/L (22-30); Chloride 104 mmol/L (98-107); Glucose 99 mg/dl (70-99); Lipase 105 U/L (23-300); Potassium 3.9 mmol/L (3.5-5.1); Sodium 134 mmol/L (135-145); Total Bilirubin 0.4 mg/dl (0.2-1.3); Total Protein 5.8 g/dl (6.3-8.2); eGFR > 60.00
--- NOTE | 2023-12-27 13:04 | ED.GENMED ---
History of Present Illness
<Nicole Hurtado PA-C - Last Filed: 12/31/23 09:02>
General
Chief Complaint: Abdominal Symptoms
Source: patient
Exam Limitations: none
Time Seen by Provider: 12/27/23 12:37
Nursing documentation reviewed up to this point in time: agreed with
Travel History
Have you had any contact with someone who has COVID-19?: No
Do you have any symptoms of coronavirus? Fever > 100 degrees, chills, cough, shortness of breath, sore throat, loss of taste or smell, muscle aches, or headache?: No
History of Present Illness
History of Present Illness:
Patient is a 73-year-old female with history of lung cancer currently undergoing treatment, Crohn's disease with ostomy bag presenting for evaluation of upper abdominal pain and diarrhea. Patient states abdominal pain and diarrhea have been
somewhat chronic over the past month given multiple medications but have acutely worsened over the past 3 to 4 days. Patient endorses some epigastric discomfort and multiple episodes of diarrhea per day in colostomy bag. She also endorses some
urinary urgency but denies any frequency or dysuria. No hematuria noted. Patient denies any fever, chills, chest pain, worsening shortness of breath or cough.
Patient has been on Bactrim for the past month due to steroid use and is unsure if this may be related to diarrhea. She also has a history of Crohn's disease and is suspicious of possible flare.
Patient has been dealing with chronic hypomagnesemia and receives magnesium/fluids infusions twice per week at the infusion center. Her neck scheduled infusion is for tomorrow, Sunday.
Patient has had past cholecystectomy and appendectomy.
Past History
<Nicole Hurtado PA-C - Last Filed: 12/31/23 09:02>
Past History
ED Past Medical History: Cancer, COPD, HTN, Seizures and Other (Crohn's disease, anxiety)
ED Past Surgical History: Bowel resection (For Crohn's disease with a subsequent colostomy), Cholecystectomy and Other (Partial lung lobectomy)
Social History
Tobacco: Former smoker
Alcohol: None
Drug: None
Personal:
Living: alone
Employment: Employed
Family History
Family History: Other (No significant)
Phy Exam
<Nicole Hurtado PA-C - Last Filed: 12/31/23 09:02>
Physical Exam
Physical Exam:
General: Chronically ill-appearing, nontoxic
Vitals: Vital signs stable, afebrile
HEENT: Atraumatic, normocephalic; pupils equal round reactive light bilaterally, extraocular muscles intact, sclera not anicteric bilaterally, protecting airway
Neck: appears supple, normal range of motion, no JVD, trachea midline, no meningeal signs
CV: Regular rate and rhythm, heart sounds normal, no evidence of cyanosis
Resp: No evidence of respiratory distress, O2 saturation 95 on room air, decreased breath sounds on right side, pleurodesis/chest tube in place on right lower chest wall
Abd: Soft, diffuse mild tenderness, non-distended; colostomy bag in place without any surrounding redness or erythema
Extremities: No deformities, no evidence of cyanosis or edema; DP pulses intact bilaterally
Neuro: alert and oriented x 3; grossly intact
Psych: Normal affect
Skin: Intact, no rashes
Course
<Nicole Hurtado PA-C - Last Filed: 12/31/23 09:02>
Orders/Labs/Results
Orders:
Orders
12/27/23 Breakfast
Cholesterol Lowering
At Your Request: Full Participation
Cholesterol Lowering: Sodium, 2 Gram
12/27/23 09:40
Complete Blood Count/With Diff Urgent
Comprehensive Metabolic Panel Urgent
Lipase Urgent
Magnesium Urgent
Comment: ADD ON
12/27/23 13:12
Electrocardiogram (*1) Urgent
Reason for Study: Abdominal Pain
EKG- Treatment ONCE
12/27/23 13:20
CT Abd/pel W Iv And Oral Contr Urgent
Comment: hx crohns w/ ostomy
Reason For Exam: diarrhea, diffuse/epigastric abdominal pain,
Iohexol [Omnipaque] See Protocol PO NOW STA
12/27/23 13:23
Urinalysis Reflex To Culture Urgent
Date Specimen was Collected: 12/27/23
Time Specimen was Collected: 13:21
12/27/23 13:26
0.9% Sodium Chloride 1000 ml [Nss] 1,000 ml IV BOLUS
12/27/23 13:27
Famotidine [Pepcid] 10 mg IV NOW STA
12/27/23 13:56
Add On- LAB Urgent
Tests Added?: Magnesium
12/27/23 15:13
Giardia/Cryptosporidium Ag Urgent
MABLE Source: ST
Specimen Description:
Date Specimen was Collected: 12/27/23
Time Specimen was Collected: 15:11
Norovirus by PCR Urgent
MABLE Source: ST
Specimen Description:
Date Specimen was Collected: 12/27/23
Time Specimen was Collected: 15:11
Comment: Add on by Paulette Lugo
STOOL [C difficile Antigen & Toxins] Urgent
MABLE Source: Feces/Stool
Specimen Description:
Date Specimen was Collected: 12/27/23
Time Specimen was Collected: 15:11
Stool Culture Urgent
MABLE Source: Feces/Stool
Specimen Description:
Date Specimen was Collected: 12/27/23
Time Specimen was Collected: 15:12
Stool For WBC Urgent
MABLE Source: ST
Specimen Description:
Date Specimen was Collected: 12/27/23
Time Specimen was Collected: 15:12
Comment: ADD ON
12/27/23 15:56
0.9% Sodium Chloride 500 ml [Nss] 500 ml IV BOLUS
12/27/23 16:05
Magnesium Sulfate 1 grams 0.9% Sodium Chloride 100 ml [Nss] 100 ml IV NOW
12/27/23 17:35
Piperacillin/Tazo 3.375 Gram [Zosyn] 3.375 gram in 50 ml IV NOW
Vancomycin [Vancocin] 1,500 mg 0.9% Sodium Chloride [Nss] 20 ml 0.9% Sodium Chloride 250 ml [Nss] 250 ml IV NOW
12/27/23 17:54
Blood Culture Q30M
MABLE Source: Blood/Venous
Specimen Description:
Blood Culture Q30M
MABLE Source: Blood/Venous
Specimen Description:
12/27/23 18:08
Admit/Transfer Patient As Directed
Co-Sign Provider:
Level of Care: Observation services
Assign to:: Telemetry
Physician / Group: paulette lugo
Diagnosis: Acute diarrhea, hypomagnesemia, pneumonitis
Reason for Telemetry: Arrhythmia
Date to Stop Telemetry: 12/30/23
Time to Stop Telemetry: 11:00
Loperamide [Imodium] 2 mg PO NOW STA
Loperamide [Imodium] 2 mg PO Q6HPRN PRN
12/27/23 18:09
Code Status As Directed
Resuscitation Status: Full Code
12/27/23 18:10
Add On - Microbiology Urgent
Tests Added?: norovirus by PCR
12/27/23 18:24
Levalbuterol Tartrate [Xopenex Hfa 45 Mcg Inhaler] 1 puff INH R Q6HPRN PRN
Xopenex Reason for Use As Directed
Reason for ordering Xopenex instead of Albuterol: tachycardia
12/27/23 19:00
Rosuvastatin Calcium [Crestor] 5 mg PO QPM
12/27/23 19:17
0.9% Sodium Chloride 1000 ml [Nss] 1,000 ml IV 70 mls/hr
12/27/23 19:17
Activity As Directed
Activity Level: As Tolerated
Intake/ Output As Directed
Frequency: Per unit guidelines
Pneumatic Compression Sleeves As Directed
Type: Knee high
Vital Signs As Directed
Frequency: Per unit guidelines
Weight As Directed
Frequency: Daily
Pulse Ox/spot Check [RESP] Routine
Quantity: 1
DX Deep Vein Thrombosis Video Routine
12/27/23 20:00
Lorazepam [Ativan] 0.5 mg PO BID
Sodium Chloride 1 gram PO BID
cycloSPORINE [Restasis 0.05% Ophthalmic Emulsion] 1 drops BOTH EYES BID
12/27/23 20:46
Lorazepam [Ativan] 0.5 mg PO DAILY PRN
12/27/23 21:00
Flush (0.9% Sodium Chloride) [Flush (Nss)] See Dose Instructions IV PER PROTOCOL
Phenobarbital [Luminal] 64.8 mg PO QPM
12/27/23 21:20
Magnesium Oxide 500 mg PO NOW STA
12/27/23 22:00
Fluvoxamine [Luvox] 100 mg PO HS
Metoprolol Xl [Toprol Xl] 25 mg PO HS
12/28/23 01:08
Tramadol HCl [Ultram] 25 mg PO NOW STA
12/28/23 01:33
Ondansetron Injectable [Zofran] 4 mg IV Q6HPRN PRN
12/28/23 05:46
C-Reactive Protein Routine
Comment: ESR & CRP ADDED ON BY FLOOR 3PM 12-28-23
Complete Blood Count/With Diff IN AM
Comprehensive Metabolic Panel IN AM
Erythrocyte Sed Rate Routine
Magnesium IN AM
12/28/23 Breakfast
Regular
At Your Request: Full Participation
12/28/23 06:47
Ibuprofen [Motrin] 200 mg PO NOW STA
12/28/23 08:00
Ascorbic Acid [Vitamin C] 500 mg PO DAILY
Budesonide/Formoterol 160/4.5 [Symbicort 160/4.5 Mcg Inhaler] 2 puff INH R BID
Fluvoxamine [Luvox] 50 mg PO DAILY
Lisinopril [Zestril] 2.5 mg PO DAILY
Loratadine [Claritin] 10 mg PO DAILY
Metoprolol Xl [Toprol Xl] 50 mg PO DAILY
Prednisone [Deltasone] 20 mg PO DAILY
Sulfamethox./Trimethoprim Ds [Bactrim Ds 800 mg/160 mg] 1 tablet PO MoWeFr@0800
Tiotropium [place] 2.5 Mcg [Spiriva Respimat 2.5 Mcg] 2 puff INH R DAILY
12/28/23 08:09
Magnesium Sulfate 4 Gram/100Ml [Magnesium Sulfate] 4 gram in 100 ml IV NOW
Potassium Chloride [KCl] 40 meq PO NOW STA
12/28/23 08:12
Tramadol HCl [Ultram] 25 mg PO Q6HPRN PRN
12/28/23 08:43
Loperamide [Imodium] 2 mg PO Q4HPRN PRN
12/28/23 08:44
Add On- LAB Stat
Tests Added?: stool WBC
12/28/23 12:50
Consult Gastroenterology [GASTROINTESTINAL CONSULT] Routine
Consulting Provider: Sadie Hess
Was physician already notified: Yes
12/28/23 12:55
Potassium Chloride 10% Elixir [KCl Elixir] 40 meq PO NOW STA
12/28/23 13:00
Lactobac/Bifidobac [Visbiome] 1 cap PO DAILY
12/28/23 13:55
Add On- LAB Routine
Tests Added?: giardia and crypto
12/28/23 14:[address] Non Medication Order As Directed
Physician Order: accurate I+O
Above order entered?: Yes
12/28/23 14:56
Add On- LAB Routine
Tests Added?: ESR, CRP
12/28/23 16:36
Calprotectin, Fecal [S] Routine
Date Specimen was Collected: 12/28/23
Time Specimen was Collected: 16:35
12/28/23 16:45
Miscellaneous Order As Directed
Miscellaneous order: accurate I&O
12/28/23 17:07
Loperamide [Imodium] 4 mg PO NOW STA
12/28/23 18:00
Enoxaparin Sodium [Lovenox] 40 mg SC QPM
12/29/23 07:30
Complete Blood Count/With Diff IN AM
Comprehensive Metabolic Panel IN AM
Magnesium Routine
Comment: ADD ON
12/29/23 08:00
Prednisone [Deltasone] 10 mg PO DAILY
12/29/23 08:10
Add On- LAB Urgent
Tests Added?: magnesium
12/29/23 08:12
Loperamide [Imodium] 4 mg PO NOW STA
12/29/23 11:43
Magnesium Sulfate 4 Gram/100Ml [Magnesium Sulfate] 4 gram in 100 ml IV NOW
Potassium Chloride [KCl] 40 meq 0.9% Sodium Chloride 250 ml [Nss] 250 ml IV NOW
12/29/23 12:00
Loperamide [Imodium] 2 mg PO Q6H
Pantoprazole [Protonix IV] 40 mg IV DAILY
Psyllium [Metamucil, Konsyl] 1 packet PO DAILY
12/30/23 03:26
Acetaminophen [Tylenol] 650 mg PO NOW STA
12/30/23 08:02
Complete Blood Count/With Diff IN AM
Comprehensive Metabolic Panel IN AM
Magnesium IN AM
Procalcitonin IN AM
PCT Algorithmm Indication: Respiratory
Blood Culture Q30M
MABLE Source: Blood/Venous
Specimen Description:
12/30/23 08:18
Blood Culture Q30M
MABLE Source: Blood/Venous
Specimen Description:
12/30/23 09:31
Urinalysis Reflex To Culture Routine
Date Specimen was Collected: 12/30/23
Time Specimen was Collected: 09:
Urine Microscopic Reflex Cult Routine
Sputum Culture [Respiratory Culture/Gram Stain] Routine
MABLE Source: Sputum
Specimen Description:
Date Specimen was Collected: 12/30/23
Time Specimen was Collected: 09:27
12/30/23 10:05
CXR2 [CR Chest - 2 Views ] Urgent
Comment:
Reason For Exam: hypoxia
12/30/23 11:00
DC Protocol for Telemetry ONCE
12/30/23 11:11
Magnesium Sulfate 4 Gram/100Ml [Magnesium Sulfate] 4 gram in 100 ml IV NOW
Potassium Chloride [KCl] 40 meq 0.9% Sodium Chloride 250 ml [Nss] 250 ml IV NOW
12/31/23 05:17
Complete Blood Count/With Diff IN AM
Comprehensive Metabolic Panel IN AM
Magnesium IN AM
12/31/23 06:00
CR Chest - 2 Views Routine
Comment:
Reason For Exam: fever
01/01/24 06:00
Complete Blood Count/With Diff IN AM
Comprehensive Metabolic Panel IN AM
Magnesium IN AM
Abnormal Lab Results
12/27/23 12/28/23 12/29/23
09:40 05:46 07:30
WBC 4.7 L 10^3/uL
(4.8-10.8)
RBC 3.63 L 10^6/uL 3.52 L 10^6/uL
(4.20-5.40) (4.20-5.40)
Hgb 10.5 L g/dL 8.7 L g/dL 8.4 L g/dL
(12.0-16.0) (12.0-16.0) (12.0-16.0)
Hct 33.2 L % 28.0 L % 27.8 L %
(37.0-47.0) (37.0-47.0) (37.0-47.0)
MCV 77.2 L fL 77.1 L fL 79.0 L fL
(81.0-99.0) (81.0-99.0) (81.0-99.0)
MCH 24.4 L pg 24.0 L pg 23.9 L pg
(27.0-31.0) (27.0-31.0) (27.0-31.0)
MCHC 31.6 L g/dL 31.1 L g/dL 30.2 L g/dL
(33.0-37.0) (33.0-37.0) (33.0-37.0)
RDW 17.0 H % 16.9 H % 16.7 H %
(11.5-14.5) (11.5-14.5) (11.5-14.5)
Plt Count
Absolute Neuts (auto) 6.6 H 10^3/uL
(1.4-6.5)
Absolute Lymphs (auto) 0.3 L 10^3/uL 0.5 L 10^3/uL 0.4 L 10^3/uL
(1.2-3.4) (1.2-3.4) (1.2-3.4)
Immature Gran %
Neutrophils % 94.0 H % 88.4 H % 88.6 H %
(42.2-75.2) (42.2-75.2) (42.2-75.2)
Lymphocytes % 4.8 L % 9.8 L % 8.7 L %
(20.5-51.1) (20.5-51.1) (20.5-51.1)
Monocytes % 0.7 L % 1.2 L %
(1.7-9.3) (1.7-9.3)
ESR 41 H mm/hour
(0-20)
Sodium 134 L mmol/L 133 L mmol/L 131 L mmol/L
(135-145) (135-145) (135-145)
Potassium 3.1 L mmol/L 3.1 L mmol/L
(3.5-5.1) (3.5-5.1)
Carbon Dioxide
BUN 18 H mg/dl
(7-17)
Creatinine 0.5 L mg/dL 0.4 L mg/dL 0.4 L mg/dL
(0.6-1.0) (0.6-1.0) (0.6-1.0)
Calcium 8.1 L mg/dl 8.0 L mg/dl
(8.4-10.2) (8.4-10.2)
Magnesium 1.2 L mg/dl 1.1 L mg/dl 1.3 L mg/dl
(1.6-2.3) (1.6-2.3) (1.6-2.3)
ALT 42 H U/L
(0-35)
C-Reactive Protein 72.00 H mg/L
(0.0-10.00)
Total Protein 5.8 L g/dl 5.0 L g/dl 4.9 L g/dl
(6.3-8.2) (6.3-8.2) (6.3-8.2)
Albumin 3.3 L g/dl 2.7 L g/dl 2.7 L g/dl
(3.5-5.0) (3.5-5.0) (3.5-5.0)
Leukocyte Esterase Rfl
Urine RBC
Urine Bacteria (Reflex)
12/30/23 12/30/23
08:02 09:31
WBC 3.1 L 10^3/uL
(4.8-10.8)
RBC 3.58 L 10^6/uL
(4.20-5.40)
Hgb 8.5 L g/dL
(12.0-16.0)
Hct 28.1 L %
(37.0-47.0)
MCV 78.5 L fL
(81.0-99.0)
MCH 23.7 L pg
(27.0-31.0)
MCHC 30.2 L g/dL
(33.0-37.0)
RDW 16.5 H %
(11.5-14.5)
Plt Count 115 L 10^3/uL
(130-400)
Absolute Neuts (auto)
Absolute Lymphs (auto) 0.4 L 10^3/uL
(1.2-3.4)
Immature Gran % 0.7 H %
(0-0.5)
Neutrophils % 79.8 H %
(42.2-75.2)
Lymphocytes % 13.0 L %
(20.5-51.1)
Monocytes %
ESR
Sodium 131 L mmol/L
(135-145)
Potassium 3.1 L mmol/L
(3.5-5.1)
Carbon Dioxide 31 H mmol/L
(22-30)
BUN
Creatinine 0.4 L mg/dL
(0.6-1.0)
Calcium 8.1 L mg/dl
(8.4-10.2)
Magnesium 1.4 L mg/dl
(1.6-2.3)
ALT
C-Reactive Protein
Total Protein 5.0 L g/dl
(6.3-8.2)
Albumin 2.7 L g/dl
(3.5-5.0)
Leukocyte Esterase Rfl Trace A
(Negative)
Urine RBC 3-6 A /HPF
(0-2)
Urine Bacteria (Reflex) Few A
(Negative)
12/30/23 08:02
12/30/23 08:02
Vital Signs
Initial and Last Documented VS:
Initial Vital Signs
Temp Pulse Pulse Ox
98.1 F 95 93
12/27/23 09:33 12/27/23 09:33 12/27/23 09:33
Last Documented Vital Signs
Temp Pulse Resp BP Pulse Ox
99.1 F 78 16 117/73 92
12/31/23 07:30 12/31/23 08:26 12/31/23 08:26 12/31/23 07:30 12/31/23 08:26
<Tim Sosa, DO - Last Filed: 12/27/23 17:40>
Orders/Labs/Results
Orders:
Orders
12/27/23 Breakfast
Cholesterol Lowering
At Your Request: Full Participation
Cholesterol Lowering: Sodium, 2 Gram
12/27/23 09:40
Complete Blood Count/With Diff Urgent
Comprehensive Metabolic Panel Urgent
Lipase Urgent
Magnesium Urgent
Comment: ADD ON
12/27/23 13:12
Electrocardiogram (*1) Urgent
Reason for Study: Abdominal Pain
EKG- Treatment ONCE
12/27/23 13:20
CT Abd/pel W Iv And Oral Contr Urgent
Comment: hx crohns w/ ostomy
Reason For Exam: diarrhea, diffuse/epigastric abdominal pain,
Iohexol [Omnipaque] See Protocol PO NOW STA
12/27/23 13:23
Urinalysis Reflex To Culture Urgent
Date Specimen was Collected: 12/27/23
Time Specimen was Collected: 13:21
12/27/23 13:26
0.9% Sodium Chloride 1000 ml [Nss] 1,000 ml IV BOLUS
12/27/23 13:27
Famotidine [Pepcid] 10 mg IV NOW STA
12/27/23 13:56
Add On- LAB Urgent
Tests Added?: Magnesium
12/27/23 15:13
Giardia/Cryptosporidium Ag Urgent
MABLE Source: ST
Specimen Description:
Date Specimen was Collected: 12/27/23
Time Specimen was Collected: 15:11
Norovirus by PCR Urgent
MABLE Source: ST
Specimen Description:
Date Specimen was Collected: 12/27/23
Time Specimen was Collected: 15:11
Comment: Add on by Paulette Lugo
STOOL [C difficile Antigen & Toxins] Urgent
MABLE Source: Feces/Stool
Specimen Description:
Date Specimen was Collected: 12/27/23
Time Specimen was Collected: 15:11
Stool Culture Urgent
MABLE Source: Feces/Stool
Specimen Description:
Date Specimen was Collected: 12/27/23
Time Specimen was Collected: 15:12
Stool For WBC Urgent
MABLE Source: ST
Specimen Description:
Date Specimen was Collected: 12/27/23
Time Specimen was Collected: 15:12
Comment: ADD ON
12/27/23 15:56
0.9% Sodium Chloride 500 ml [Nss] 500 ml IV BOLUS
12/27/23 16:05
Magnesium Sulfate 1 grams 0.9% Sodium Chloride 100 ml [Nss] 100 ml IV NOW
12/27/23 17:35
Piperacillin/Tazo 3.375 Gram [Zosyn] 3.375 gram in 50 ml IV NOW
Vancomycin [Vancocin] 1,500 mg 0.9% Sodium Chloride [Nss] 20 ml 0.9% Sodium Chloride 250 ml [Nss] 250 ml IV NOW
12/27/23 17:54
Blood Culture Q30M
MABLE Source: Blood/Venous
Specimen Description:
Blood Culture Q30M
MABLE Source: Blood/Venous
Specimen Description:
12/27/23 18:08
Admit/Transfer Patient As Directed
Co-Sign Provider:
Level of Care: Observation services
Assign to:: Telemetry
Physician / Group: paulette lugo
Diagnosis: Acute diarrhea, hypomagnesemia, pneumonitis
Reason for Telemetry: Arrhythmia
Date to Stop Telemetry: 12/30/23
Time to Stop Telemetry: 11:00
Loperamide [Imodium] 2 mg PO NOW STA
Loperamide [Imodium] 2 mg PO Q6HPRN PRN
12/27/23 18:09
Code Status As Directed
Resuscitation Status: Full Code
12/27/23 18:10
Add On - Microbiology Urgent
Tests Added?: norovirus by PCR
12/27/23 18:24
Levalbuterol Tartrate [Xopenex Hfa 45 Mcg Inhaler] 1 puff INH R Q6HPRN PRN
Xopenex Reason for Use As Directed
Reason for ordering Xopenex instead of Albuterol: tachycardia
12/27/23 19:00
Rosuvastatin Calcium [Crestor] 5 mg PO QPM
12/27/23 19:17
0.9% Sodium Chloride 1000 ml [Nss] 1,000 ml IV 70 mls/hr
12/27/23 19:17
Activity As Directed
Activity Level: As Tolerated
Intake/ Output As Directed
Frequency: Per unit guidelines
Pneumatic Compression Sleeves As Directed
Type: Knee high
Vital Signs As Directed
Frequency: Per unit guidelines
Weight As Directed
Frequency: Daily
Pulse Ox/spot Check [RESP] Routine
Quantity: 1
DX Deep Vein Thrombosis Video Routine
12/27/23 20:00
Lorazepam [Ativan] 0.5 mg PO BID
Sodium Chloride 1 gram PO BID
cycloSPORINE [Restasis 0.05% Ophthalmic Emulsion] 1 drops BOTH EYES BID
12/27/23 20:46
Lorazepam [Ativan] 0.5 mg PO DAILY PRN
12/27/23 21:00
Flush (0.9% Sodium Chloride) [Flush (Nss)] See Dose Instructions IV PER PROTOCOL
Phenobarbital [Luminal] 64.8 mg PO QPM
12/27/23 21:20
Magnesium Oxide 500 mg PO NOW STA
12/27/23 22:00
Fluvoxamine [Luvox] 100 mg PO HS
Metoprolol Xl [Toprol Xl] 25 mg PO HS
12/28/23 01:08
Tramadol HCl [Ultram] 25 mg PO NOW STA
12/28/23 01:33
Ondansetron Injectable [Zofran] 4 mg IV Q6HPRN PRN
12/28/23 05:46
C-Reactive Protein Routine
Comment: ESR & CRP ADDED ON BY FLOOR 3PM 12-28-23
Complete Blood Count/With Diff IN AM
Comprehensive Metabolic Panel IN AM
Erythrocyte Sed Rate Routine
Magnesium IN AM
12/28/23 Breakfast
Regular
At Your Request: Full Participation
12/28/23 06:47
Ibuprofen [Motrin] 200 mg PO NOW STA
12/28/23 08:00
Ascorbic Acid [Vitamin C] 500 mg PO DAILY
Budesonide/Formoterol 160/4.5 [Symbicort 160/4.5 Mcg Inhaler] 2 puff INH R BID
Fluvoxamine [Luvox] 50 mg PO DAILY
Lisinopril [Zestril] 2.5 mg PO DAILY
Loratadine [Claritin] 10 mg PO DAILY
Metoprolol Xl [Toprol Xl] 50 mg PO DAILY
Prednisone [Deltasone] 20 mg PO DAILY
Sulfamethox./Trimethoprim Ds [Bactrim Ds 800 mg/160 mg] 1 tablet PO MoWeFr@0800
Tiotropium [place] 2.5 Mcg [Spiriva Respimat 2.5 Mcg] 2 puff INH R DAILY
12/28/23 08:09
Magnesium Sulfate 4 Gram/100Ml [Magnesium Sulfate] 4 gram in 100 ml IV NOW
Potassium Chloride [KCl] 40 meq PO NOW STA
12/28/23 08:12
Tramadol HCl [Ultram] 25 mg PO Q6HPRN PRN
12/28/23 08:43
Loperamide [Imodium] 2 mg PO Q4HPRN PRN
12/28/23 08:44
Add On- LAB Stat
Tests Added?: stool WBC
12/28/23 12:50
Consult Gastroenterology [GASTROINTESTINAL CONSULT] Routine
Consulting Provider: Sadie Hess
Was physician already notified: Yes
12/28/23 12:55
Potassium Chloride 10% Elixir [KCl Elixir] 40 meq PO NOW STA
12/28/23 13:00
Lactobac/Bifidobac [Visbiome] 1 cap PO DAILY
12/28/23 13:55
Add On- LAB Routine
Tests Added?: giardia and crypto
12/28/23 14:[address] Non Medication Order As Directed
Physician Order: accurate I+O
Above order entered?: Yes
12/28/23 14:56
Add On- LAB Routine
Tests Added?: ESR, CRP
12/28/23 16:36
Calprotectin, Fecal [S] Routine
Date Specimen was Collected: 12/28/23
Time Specimen was Collected: 16:35
12/28/23 16:45
Miscellaneous Order As Directed
Miscellaneous order: accurate I&O
12/28/23 17:07
Loperamide [Imodium] 4 mg PO NOW STA
12/28/23 18:00
Enoxaparin Sodium [Lovenox] 40 mg SC QPM
12/29/23 07:30
Complete Blood Count/With Diff IN AM
Comprehensive Metabolic Panel IN AM
Magnesium Routine
Comment: ADD ON
12/29/23 08:00
Prednisone [Deltasone] 10 mg PO DAILY
12/29/23 08:10
Add On- LAB Urgent
Tests Added?: magnesium
12/29/23 08:12
Loperamide [Imodium] 4 mg PO NOW STA
12/29/23 11:43
Magnesium Sulfate 4 Gram/100Ml [Magnesium Sulfate] 4 gram in 100 ml IV NOW
Potassium Chloride [KCl] 40 meq 0.9% Sodium Chloride 250 ml [Nss] 250 ml IV NOW
12/29/23 12:00
Loperamide [Imodium] 2 mg PO Q6H
Pantoprazole [Protonix IV] 40 mg IV DAILY
Psyllium [Metamucil, Konsyl] 1 packet PO DAILY
12/30/23 03:26
Acetaminophen [Tylenol] 650 mg PO NOW STA
12/30/23 08:02
Complete Blood Count/With Diff IN AM
Comprehensive Metabolic Panel IN AM
Magnesium IN AM
Procalcitonin IN AM
PCT Algorithmm Indication: Respiratory
Blood Culture Q30M
MABLE Source: Blood/Venous
Specimen Description:
12/30/23 08:18
Blood Culture Q30M
MABLE Source: Blood/Venous
Specimen Description:
12/30/23 09:31
Urinalysis Reflex To Culture Routine
Date Specimen was Collected: 12/30/23
Time Specimen was Collected: 09:27
Urine Microscopic Reflex Cult Routine
Sputum Culture [Respiratory Culture/Gram Stain] Routine
MABLE Source: Sputum
Specimen Description:
Date Specimen was Collected: 12/30/23
Time Specimen was Collected: 09:27
12/30/23 10:05
CXR2 [CR Chest - 2 Views ] Urgent
Comment:
Reason For Exam: hypoxia
12/30/23 11:00
DC Protocol for Telemetry ONCE
12/30/23 11:11
Magnesium Sulfate 4 Gram/100Ml [Magnesium Sulfate] 4 gram in 100 ml IV NOW
Potassium Chloride [KCl] 40 meq 0.9% Sodium Chloride 250 ml [Nss] 250 ml IV NOW
12/31/23 05:17
Complete Blood Count/With Diff IN AM
Comprehensive Metabolic Panel IN AM
Magnesium IN AM
12/31/23 06:00
CR Chest - 2 Views Routine
Comment:
Reason For Exam: fever
01/01/24 06:00
Complete Blood Count/With Diff IN AM
Comprehensive Metabolic Panel IN AM
Magnesium IN AM
Abnormal Lab Results
12/27/23 12/28/23 12/29/23
09:40 05:46 07:30
WBC 4.7 L 10^3/uL
(4.8-10.8)
RBC 3.63 L 10^6/uL 3.52 L 10^6/uL
(4.20-5.40) (4.20-5.40)
Hgb 10.5 L g/dL 8.7 L g/dL 8.4 L g/dL
(12.0-16.0) (12.0-16.0) (12.0-16.0)
Hct 33.2 L % 28.0 L % 27.8 L %
(37.0-47.0) (37.0-47.0) (37.0-47.0)
MCV 77.2 L fL 77.1 L fL 79.0 L fL
(81.0-99.0) (81.0-99.0) (81.0-99.0)
MCH 24.4 L pg 24.0 L pg 23.9 L pg
(27.0-31.0) (27.0-31.0) (27.0-31.0)
MCHC 31.6 L g/dL 31.1 L g/dL 30.2 L g/dL
(33.0-37.0) (33.0-37.0) (33.0-37.0)
RDW 17.0 H % 16.9 H % 16.7 H %
(11.5-14.5) (11.5-14.5) (11.5-14.5)
Plt Count
Absolute Neuts (auto) 6.6 H 10^3/uL
(1.4-6.5)
Absolute Lymphs (auto) 0.3 L 10^3/uL 0.5 L 10^3/uL 0.4 L 10^3/uL
(1.2-3.4) (1.2-3.4) (1.2-3.4)
Immature Gran %
Neutrophils % 94.0 H % 88.4 H % 88.6 H %
(42.2-75.2) (42.2-75.2) (42.2-75.2)
Lymphocytes % 4.8 L % 9.8 L % 8.7 L %
(20.5-51.1) (20.5-51.1) (20.5-51.1)
Monocytes % 0.7 L % 1.2 L %
(1.7-9.3) (1.7-9.3)
ESR 41 H mm/hour
(0-20)
Sodium 134 L mmol/L 133 L mmol/L 131 L mmol/L
(135-145) (135-145) (135-145)
Potassium 3.1 L mmol/L 3.1 L mmol/L
(3.5-5.1) (3.5-5.1)
Carbon Dioxide
BUN 18 H mg/dl
(7-17)
Creatinine 0.5 L mg/dL 0.4 L mg/dL 0.4 L mg/dL
(0.6-1.0) (0.6-1.0) (0.6-1.0)
Calcium 8.1 L mg/dl 8.0 L mg/dl
(8.4-10.2) (8.4-10.2)
Magnesium 1.2 L mg/dl 1.1 L mg/dl 1.3 L mg/dl
(1.6-2.3) (1.6-2.3) (1.6-2.3)
ALT 42 H U/L
(0-35)
C-Reactive Protein 72.00 H mg/L
(0.0-10.00)
Total Protein 5.8 L g/dl 5.0 L g/dl 4.9 L g/dl
(6.3-8.2) (6.3-8.2) (6.3-8.2)
Albumin 3.3 L g/dl 2.7 L g/dl 2.7 L g/dl
(3.5-5.0) (3.5-5.0) (3.5-5.0)
Leukocyte Esterase Rfl
Urine RBC
Urine Bacteria (Reflex)
12/30/23 12/30/23
08:02 09:31
WBC 3.1 L 10^3/uL
(4.8-10.8)
RBC 3.58 L 10^6/uL
(4.20-5.40)
Hgb 8.5 L g/dL
(12.0-16.0)
Hct 28.1 L %
(37.0-47.0)
MCV 78.5 L fL
(81.0-99.0)
MCH 23.7 L pg
(27.0-31.0)
MCHC 30.2 L g/dL
(33.0-37.0)
RDW 16.5 H %
(11.5-14.5)
Plt Count 115 L 10^3/uL
(130-400)
Absolute Neuts (auto)
Absolute Lymphs (auto) 0.4 L 10^3/uL
(1.2-3.4)
Immature Gran % 0.7 H %
(0-0.5)
Neutrophils % 79.8 H %
(42.2-75.2)
Lymphocytes % 13.0 L %
(20.5-51.1)
Monocytes %
ESR
Sodium 131 L mmol/L
(135-145)
Potassium 3.1 L mmol/L
(3.5-5.1)
Carbon Dioxide 31 H mmol/L
(22-30)
BUN
Creatinine 0.4 L mg/dL
(0.6-1.0)
Calcium 8.1 L mg/dl
(8.4-10.2)
Magnesium 1.4 L mg/dl
(1.6-2.3)
ALT
C-Reactive Protein
Total Protein 5.0 L g/dl
(6.3-8.2)
Albumin 2.7 L g/dl
(3.5-5.0)
Leukocyte Esterase Rfl Trace A
(Negative)
Urine RBC 3-6 A /HPF
(0-2)
Urine Bacteria (Reflex) Few A
(Negative)
12/30/23 08:02
12/30/23 08:02
Vital Signs
Initial and Last Documented VS:
Initial Vital Signs
Temp Pulse Pulse Ox
98.1 F 95 93
12/27/23 09:33 12/27/23 09:33 12/27/23 09:33
Last Documented Vital Signs
Temp Pulse Resp BP Pulse Ox
99.1 F 78 16 117/73 92
12/31/23 07:30 12/31/23 08:26 12/31/23 08:26 12/31/23 07:30 12/31/23 08:26
<Nicole Hurtado PA-C - Last Filed: 12/31/23 09:02>
MDM/Problems Addressed
Differential Diagnosis Includes:
Crohn's flare, viral/bacterial colitis, UTI, pyelonephritis, GERD, medication side effect, metastatic disease
MDM/Problems Addressed:
Patient is a 73-year-old female with complex medical history currently undergoing chemotherapy for lung cancer and prior bowel surgery due to Crohn's disease with ostomy bag presenting for evaluation of diarrhea and abdominal discomfort worsening
over the past 2 days. Also endorses mild low back pain. No fever, chills. Patient is afebrile with stable vital signs on arrival, afebrile. Physical exam as document above. Patient is chronically ill-appearing, although nontoxic-appearing. Dry
mucous membranes. Abdomen is soft, mildly diffusely tender without rebound or guarding. Ostomy bag is in place. Patient had recent CT of her chest about a week ago which showed no evidence of pneumonia.
Labs were obtained in triage. CBC shows mild anemia otherwise no clinically significant abnormalities. Lipase normal. CMP shows evidence of mild dehydration and hypomagnesemia with level of 1.2. Patient does struggle with chronic hypomagnesemia
and receives infusions twice weekly. Will give IV fluids, replete magnesium while in emergency department.
Will check urine. EKG nonischemic. CT abdomen/pelvis ordered to further evaluate. Will send stool cultures and C. difficile.
Into reassess patient at bedside. Very minimal improvement after IV fluids. CT scan is still pending. Patient declines any analgesia at this time�will wait for results of CT scan. C. difficile stool test negative. At this point case was signed
out to attending physician.
Chronic conditions affecting care:
Lung cancer, Crohn's disease with ostomy bag
<Nicole Hurtado PA-C - Last Filed: 12/31/23 09:02>
*Radiology
Radiology exam reviewed: preliminary read by ED provider and radiology read reviewed
*Pulse Oximetry
Patient hypoxic: no
*EKG
Interpreted by ED Provider?: Yes
EKG Intrepretation Date: 12/27/23
Interpretation: normal
Comparison EKG: no comparison EKG present
Heart Rate: 97
Rate: normal
Rhythm: sinus
Ischemia: no ischemia
*Band Aid Machine Operator Interpretation
Rate: Band Aid Machine Operator- N/A
*Critical Care Note
Total Time (30-74mins, 75-104mins- exclusive of procedures): Not Applicable
<Tim Sosa DO - Last Filed: 12/27/23 17:40>
Update Note
Update Note:
CT shows concern for developing pneumonia. Patient requiring 2 L nasal cannula. Will start vancomycin and Zosyn and admit
ED Attending Note
<Nicole Hurtado PA-C - Last Filed: 12/31/23 09:02>
-
Portions of this chart may have been created with voice recognition software.� Occasional wrong word or��sound alike� substitutions may have occurred due to the inherent limitations of voice recognition software.
<Tim Sosa DO - Last Filed: 12/27/23 17:40>
ED Attending Note
Patient seen and examined by attending physician: Yes
I performed the substantive portion of visit, reviewed & personally made and approve the management plan that is documented in note by myself or YOHANA.: Yes
ED Attending Note:
I have seen and evaluated the patient with a [id number] encounter. I have spoken to the advance practicer provider and involved in the medical history, the physical exam, medical decision making.
Evaluation and management service: agree unless noted differently below.
Results interpretation: agree unless noted differently below.
Focused HPI: 73-year-old female presenting with abdominal discomfort, nausea and diarrhea. Patient is currently being treated for lung cancer. She does have a colostomy bag states it has had increased diarrhea. She is unsure if this is a Crohn's
flare or related to a viral infection or possibly side effect recently Bactrim
Physical exam: Sitting in bed comfortably. No significant abdominal tenderness
Medical Decision Making: Given her history, will obtain CT to rule out acute pathology of her abdomen/pelvis. Will give IV fluids for mild dehydration and Pepcid for likely gastritis
Discharge Plan
Departure
Patient Disposition: Admit
Date of Disposition: 12/27/23
Time of Disposition: 17:39
Admit to: Med/Surg
Presentation/result/management discussed w/ accepting MD/DO: Hospitalist
Discharge Problem:
PNA (pneumonia), Lung cancer, Hypomagnesemia, Pleural effusion, malignant
Interventions
Interventions:
*Risk Screen - Suicide Last Done: 12/27/23 19:15
*General Assessment Last Done: 12/27/23 13:49
*Neglect/Abuse Screening Last Done: 12/27/23 19:15
ED- Fall Risk Assessment Last Done: 12/27/23 13:52
*ED COVID-19 Vaccine History Last Done: 12/27/23 09:34
*Nursing Disposition Last Done: 12/27/23 19:15
EG-Wohygi-Nkgncqvvwr Assessment Last Done: 12/27/23 13:52
Discharge Date and Time
Discharge Date/Time: 12/27/23 19:15
[2023-12-27] MEDS: OMNIPAQUE 50 ML PO (13:42)
[2023-12-27] MEDS: PEPCID 10 MG IV (13:45)
[2023-12-27] MEDS: NSS 1000 IV ×2 (13:47→21:48)
[2023-12-27 13:51] VITALS: BP 137/97
[2023-12-27 14:07] LABS: Urine Albumin Trace (Neg - Trace); Urine Bilirubin Negative (Negative); Urine Character Clear (Clear); Urine Color Yellow; Urine Glucose Negative (Negative); Urine Ketone Negative (Negative); Urine Leukocyte Negative (Negative); Urine Nitrite Negative (Negative); Urine Occult Blood Negative (Negative); Urine Specific Gravity 1.025 (<1.030); Urine Urobilinogen Negative (Neg - 1+)
[2023-12-27 14:28] LABS: Magnesium 1.2 mg/dl (1.6-2.3)
[2023-12-27] MEDS: MAGNESIUM SULFATE 102 GRAMS IV (16:47)
[2023-12-27] MEDS: NSS 500 IV (16:49)
--- NOTE | 2023-12-27 18:12 | HPS.HSE ---
Family Physician
-
Family Physician: Marilyn Cortez
Chief Complaint
-
Abdominal pain, diarrhea
History of Present Illness
73-year-old female with past medical history of COPD, hypertension, seizure, Crohn's disease, anxiety, hypomagnesemia, non-small cell lung cancer status post right lower lobe lobectomy with recurrence K-bryan positive, recurrent right pleural effusion
status post Pleurx catheter, hyperlipidemia came to the hospital with increased abdominal pain and diarrhea. Per patient her symptoms have been there for few months however lately has gotten worse. Denies any fever/chills. Denies any worsening
shortness of breath or cough. Patient was here recently last month and had chemotherapy induced pneumonitis. At that time she was also treated with antibiotics for possible pneumonia. Now patient is not on Krazati anymore and instead is on
Avastin. She is currently on prednisone taper. CT scan of the abdomen was done did not show any acute abdominal pathology however did mention could there be possible pneumonia. After speaking with the patient, she has no fever, no leukocytosis
and no respiratory symptoms. It appears the patient's CT is likely consistent with her pneumonitis. Currently she denies any nausea/vomiting.
Medical History
Past Medical History
Past Medical History: Reports Cancer (Non-small cell lung cancer), COPD, HTN, Hypercholesterolemia and Other (Recurrent right pleural effusion, chron's disease, seizure, anxiety)
Past Surgical History: Reports Other (Colostomy, cholecystectomy, partial lung lobectomy)
Social History
Tobacco: Former Smoker
Alcohol: None
Family History
Family History: Not pertinent
Allergies / Home Medications
Allergies reflects when Allergies were last updated in [facility].
Home Medications with original date entered in [facility]
Allergy/Medication List:
Allergies
Allergy/AdvReac Type Severity Reaction Status Date / Time
acetaminophen [From Vicodin] Allergy Elevates Verified 12/27/23 09:36
ALT, AST
adagrasib [From Krazati] Allergy Unknown Verified 12/27/23 09:36
hydrocodone bitartrate Allergy Vomiting-'deathly Verified 12/27/23 09:36
[From Vicodin] sick in
stomach'
latex Allergy redness Verified 12/27/23 09:36
and
itching,
rash
meperidine HCl [From Demerol] Allergy Nausea / Verified 12/27/23 09:36
Vomiting
propoxyphene Allergy 'DARVOCET' Verified 12/27/23 09:36
[From Darvocet-N] PER
WRITTEN
ORDER FOR
03/24/19
Home Medications
lisinopril 5 mg tablet 2.5 mg PO DAILY Blood Pressure 03/22/15
cyanocobalamin (vitamin B-12) 1,000 mcg tablet 1,000 mcg IM MONTHLY Supplement 03/12/19
cyclosporine 0.05 % eye drops in a dropperette (Restasis) 1 drp BOTH EYES BID dry eyes 03/12/19
fluvoxamine 50 mg tablet 100 mg PO HS Mental Health/Anxiety 03/12/19
phenobarbital 64.8 mg tablet 64.8 mg PO QPM Neurological Condition 03/12/19
rosuvastatin 5 mg tablet (Crestor) 5 mg PO QPM High Cholesterol 09/26/22
tiotropium bromide 18 mcg capsule with inhalation device (Spiriva with HandiHaler) 1 cap inhalation R DAILY Lung/Breathing Issues 09/26/22
loperamide 2 mg tablet 2 mg PO Q4HPRN PRN diarrhea 09/17/23
metoprolol succinate 50 mg tablet,extended release 24 hr (Toprol XL) 50 mg PO DAILY Heart Disease/Condition 09/17/23
sodium chloride 1,000 mg soluble tablet 1,000 mg PO BID Supplement #60 tabs 09/20/23
ascorbic acid (vitamin C) 500 mg tablet (Vitamin C) 500 mg PO DAILY Supplement 11/09/23
loratadine 10 mg tablet (Claritin) 10 mg PO DAILY Allergies 11/09/23
fluticasone furoate 200 mcg-vilanterol 25 mcg/dose inhalation powder (Breo Ellipta) 1 inh inhalation R DAILY Lung/Breathing Issues 11/22/23
fluvoxamine 50 mg tablet 50 mg PO DAILY Mental Health/Anxiety 11/22/23
levalbuterol tartrate 45 mcg/actuation aerosol inhaler (Xopenex HFA) 1 puff inhalation R Q6HPRN PRN sob 11/22/23
ondansetron HCl 8 mg tablet 8 mg PO [id number] PRN nausea 11/22/23
Bactrim 1 tab PO MOWEFR 12/04/23
metoprolol succinate 25 mg tablet,extended release 24 hr 25 mg PO HS 12/25/23
Evastion 1 dose IV Q3W 12/27/23
lorazepam 1 mg tablet (Ativan) 0.5 mg PO BID 12/27/23
lorazepam 1 mg tablet (Ativan) 0.5 mg PO DAILY PRN anxiety 12/27/23
prednisone 10 mg tablet 10 mg PO .TAPER 12/27/23
Medications on admission are unable to be verified or confirmed at this time.
Review of Systems
-
History Source: Patient
A 12 point ROS was completed and negative except as noted: Yes
Abdomen/GI: Reports Diarrhea
Physical Exam
Vital Signs
Vital Signs
Temp Pulse Resp BP Pulse Ox
98.1 F 96 18 137/97 95
12/27/23 09:33 12/27/23 13:51 12/27/23 13:51 12/27/23 13:51 12/27/23 13:51
Physical Exam
General: Well Nourished and No Apparent Distress
HEENT: Anicteric and Moist mucous membranes
Respiratory: Clear and Non Labored Respirations; No Wheezes
Cardiac: S1/S2 and Regular Rhythm
Breast: Deferred by me
GI: Soft, Non Tender, Non Distended and Ostomy
Rectal: Deferred by Provider
Genito-urinary: No Hollingsworth
Musculoskeletal: No Edema
Neuro: Awake, Alert, Oriented and AO x 3
Psych: Calm and Intact Judgment/Insight
Laboratory Results
-
12/27/23 09:40
12/27/23 09:40
Laboratory Results
Total Bilirubin 0.4 mg/dl (0.2-1.3) 12/27/23 09:40
AST 35 U/L (14-36) 12/27/23 09:40
ALT 42 U/L (0-35) H 12/27/23 09:40
Alkaline Phosphatase 83 U/L (38-126) 12/27/23 09:40
Lipase 105 U/L (23-300) 12/27/23 09:40
Data Reviewed
-
CT Scan: Report Reviewed by me, Discussed with Physician and Discussed with Patient
Lab Data: Labs Reviewed by me and Discussed with Patient
Impression/Plan
-
Abdominal pain, diarrhea could be secondary to possible gastritis
C. difficile negative, start Imodium
Other stool studies pending, add norovirus
CT abdomen without any acute abdominal pathology
Mild hyponatremia
Monitor
Hypomagnesemia
Replete
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
On continuous 2 to 2.5 L O2
Continue with prednisone
Patient is now on Avastin
Follows up with [facility]
CT noted; there is no leukocytosis, no fever. Does not appear patient has pneumonia. Appears CT findings are related to recent pneumonitis that patient is dealing with secondary to chemotherapy. Patient reports she has no change in her
respiratory status.
Recurrent right pleural effusion status post Pleurx catheter.
Chronic anemia, normocytic multifactorial due to chronic inflammation and chemotherapy.
Lung carcinoma, non-small cell lung cancer status post partial right lower lobe lobectomy with recurrence
hx of HTN
Continue metoprolol, lisinopril
COPD
cw home meds
Crohn's disease with history of colostomy
History of seizure disorder
Anxiety
cw ativan
Hyperlipidemia
DVT prophylaxis
Lovenox
Full Code
I spent a total of 77 minutes with the patient or on the floor. More than 50% of this time involved counseling and coordination of care.
[2023-12-27] MEDS: IMODIUM 2 MG PO (18:15)
[2023-12-27 18:29] VITALS: BP 153/91
[2023-12-27 19:00] VITALS: BP 111/86
[2023-12-27 19:20] VITALS: BP 143/79; BMI 20.5
[2023-12-27] MEDS: RESTASIS 0.05% OPHTHALMIC EMULSION 1 DROPS BOTH EYES (20:59)
[2023-12-27] MEDS: CRESTOR 5 MG PO (20:59)
[2023-12-27] MEDS: SODIUM CHLORIDE 1 GRAM PO (20:59)
[2023-12-27] MEDS: LUMINAL 64.7999999999999972 MG PO (20:59)
[2023-12-27] MEDS: ATIVAN 0.5 MG PO (20:59)
[2023-12-27] MEDS: TOPROL XL 25 MG PO (21:00)
[2023-12-27] MEDS: LUVOX 100 MG PO (22:23)
[2023-12-27 23:50] VITALS: BP 101/61
--- NOTE | 2023-12-28 00:18 | PTCARENOTE ---
Pt admitted to 3W from ER. Pt AAOx3. No c/o pain. Ambulating without issues. Pt afebrile, VSS. Lungs clear, pt on 2L O2. No N/V. + loose stools to colostomy. Skin intact. Call huber within reach and bed in lowest position. Pt oriented to
room. Awaiting further plan.
[2023-12-28] MEDS: IMODIUM 2 MG PO ×2 (01:04→08:23)
[2023-12-28] MEDS: ULTRAM 25 MG PO ×3 (01:16→17:29)
[2023-12-28] MEDS: ZOFRAN 4 MG IV ×2 (01:46→17:30)
[2023-12-28 03:51] VITALS: BP 119/70
[2023-12-28 06:33] LABS: % Basophils 0.2 % (0-2); % Eosinophils 0.2 % (0-6); % Immature Granulocytes 0.2 % (0-0.5); % Lymphocytes 9.8 % (20.5-51.1); % Monocytes 1.2 % (1.7-9.3); % Neutrophils 88.4 % (42.2-75.2); Absolute Lymphocytes 0.5 10^3/uL (1.2-3.4); Absolute Monocytes 0.1 10^3/uL (0.1-0.6); Absolute Neutrophils 4.3 10^3/uL (1.4-6.5); Hemoglobin 8.7 g/dL (12.0-16.0); Mean Corp Hgb Conc. 31.1 g/dL (33.0-37.0); Mean Corpuscular Volume 77.1 fL (81.0-99.0); Mean Platelet Volume 9.7 fL (7.4-10.4); Nucleated Red Blood Cells % 0 %; Platelet Count 166 10^3/uL (130-400); Red Blood Cell Count 3.63 10^6/uL (4.20-5.40); Red Cell Dist. Width 16.9 % (11.5-14.5); White Blood Cell Count 4.9 10^3/uL (4.8-10.8)
[2023-12-28 06:52] LABS: ALT (SGPT) 33 U/L (0-35); AST (SGOT) 28 U/L (14-36); Albumin 2.7 g/dl (3.5-5.0); Alkaline Phosphatase 67 U/L (38-126); Blood Urea Nitrogen 13 mg/dl (7-17); Calcium 8.1 mg/dl (8.4-10.2); Carbon Dioxide 25 mmol/L (22-30); Chloride 105 mmol/L (98-107); Estimated Creatinine Clearance 68 ml/min; Glucose 84 mg/dl (70-99); Magnesium 1.1 mg/dl (1.6-2.3); Potassium 3.1 mmol/L (3.5-5.1); Sodium 133 mmol/L (135-145); Total Bilirubin 0.4 mg/dl (0.2-1.3); eGFR > 60.00
[2023-12-28 07:00] VITALS: BP 126/70
[2023-12-28] MEDS: SPIRIVA RESPIMAT 2.5 MCG 2 PUFF INH (07:37)
[2023-12-28] MEDS: SYMBICORT 160/4.5 MCG INHALER 2 PUFF INH ×2 (07:38→19:29)
[2023-12-28] MEDS: RESTASIS 0.05% OPHTHALMIC EMULSION 1 DROPS BOTH EYES ×2 (08:08→21:06)
[2023-12-28] MEDS: CLARITIN 10 MG PO (08:13)
[2023-12-28] MEDS: VITAMIN C 500 MG PO (08:13)
[2023-12-28] MEDS: DELTASONE 20 MG PO (08:13)
[2023-12-28] MEDS: SODIUM CHLORIDE 1 GRAM PO ×2 (08:13→21:07)
[2023-12-28] MEDS: ATIVAN 0.5 MG PO ×2 (08:14→21:06)
[2023-12-28] MEDS: TOPROL XL 50 MG PO (08:14)
[2023-12-28] MEDS: LUVOX 50 MG PO (08:14)
[2023-12-28] MEDS: ZESTRIL 2.5 MG PO (08:19)
[2023-12-28] MEDS: BACTRIM DS 800 MG/160 MG 1 TABLET PO (08:19)
[2023-12-28] MEDS: KCL 40 MEQ PO (08:40)
[2023-12-28] MEDS: MAGNESIUM SULFATE 100 IV (08:44)
[2023-12-28] MEDS: NSS 1000 IV (10:00)
[2023-12-28 11:00] VITALS: BP 120/72
--- NOTE | 2023-12-28 12:55 | W.PN.HOSP.TC ---
Today's Communication/Plan
-
Monitor vital signs see plan
GI to see
Continue with Imodium
Follow stool studies
Replete magnesium and potassium aggressively
Assessment / Plan
Assessment / Plan
General: Well Nourished and No Apparent Distress
HEENT: Anicteric and Moist mucous membranes
Respiratory: Clear and Non Labored Respirations; No Wheezes
Cardiac: S1/S2 and Regular Rhythm
Breast: Deferred by me
GI: Soft, Non Tender, Non Distended and Ostomy
Rectal: Deferred by Provider
Genito-urinary: No Hollingsworth
Musculoskeletal: No Edema
Neuro: Awake, Alert, Oriented and AO x 3
Psych: Calm and Intact Judgment/Insight
Abdominal pain, diarrhea could be secondary to possible gastritis
C. difficile negative, norovirus negative, started Imodium
Other stool studies pending, added stool WBC
hx of Crohn's, however per patient has not had flareup for a while
GI evaluation
CT abdomen without any acute abdominal pathology
Mild hyponatremia
Monitor
Hypokalemia
Replete
Hypomagnesemia
Replete
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
On continuous 2 to 2.5 L O2
Continue with prednisone; dec to 10mg per taper 12/28
Patient is now on Avastin
Follows up with [facility]
CT noted; there is no leukocytosis, no fever. Does not appear patient has pneumonia. Appears CT findings are related to recent pneumonitis that patient is dealing with secondary to chemotherapy. Patient reports she has no change in her
respiratory status.
Patient has been on prednisone, Bactrim was added for prophylaxis, only has couple days left so will discontinue Bactrim given diarrhea
Recurrent right pleural effusion status post Pleurx catheter.
Chronic anemia, normocytic multifactorial due to chronic inflammation and chemotherapy.
Lung carcinoma, non-small cell lung cancer status post partial right lower lobe lobectomy with recurrence
hx of HTN
Continue metoprolol, lisinopril
COPD
cw home meds
Crohn's disease with history of colostomy
History of seizure disorder
Anxiety
cw ativan
Hyperlipidemia
DVT prophylaxis
Lovenox
Full Code
Anticipated Discharge: 24 - 48 hours
Subjective/Interval History
-
Date of Service: December 28, 2023
Still has some abdominal discomfort and diarrhea
Objective Data
-
Labs:
Laboratory Results
12/28/23
05:46
WBC 4.9
Hgb 8.7 L
Hct 28.0 L
Plt Count 166
Sodium 133 L
Potassium 3.1 L
Chloride 105
Carbon Dioxide 25
BUN 13
Creatinine 0.4 L
Glucose 84
Calcium 8.1 L
Total Bilirubin 0.4
AST 28
ALT 33
Alkaline Phosphatase 67
Vital Signs:
Vital Signs
Temp Pulse Resp BP Pulse Ox
98.5 F 100 17 120/72 95
12/28/23 11:00 12/28/23 11:00 12/28/23 11:00 12/28/23 11:00 12/28/23 11:00
I&O
12/27/23 12/28/23 12/29/23
06:59 06:59 06:59
Intake Total 120 / 120
Balance 120 / 120
[2023-12-28] MEDS: VISBIOME 1 CAP PO (13:01)
[2023-12-28] MEDS: KCL ELIXIR 40 MEQ PO (13:05)
--- NOTE | 2023-12-28 13:16 | CON.GI ---
Addendum entered and electronically signed by Sadie Delcid Do, MD 12/28/23 17:06:
I saw and examined the patient.
The RESIDENTIAL LAWN SPECIALIST's note was reviewed and I agree with the note.
Comment: Benjamin is a 73yo W with h/o lung cancer on chemo, pleurex for recurrent pleural effusions and crohn's disease diagnosed 1970 s/p total colectomy with end ileostomy who presents for increase diarrhea and output through ostomy. Of note
recently on bactrim for lung infection and just started avastin through [facility] oncologist on Sunday. Exam VSS, ostomy with small amount of output, several surgical scar, increase gas, mild TTP around R sided pleurex catheter. Labs reviewed. CTAP
reviewed moderate loculated pleural effusion L 3 compression fractures
Impressions
- Increase diarrhea/ostomy output
Suspect related to recent Bactrim use and Avastin (side effect of diarrhea is 20-40%)
Other consideration is crohn's flare but temporally related to above
- H/o lung cancer on chemo
- Pleurex for malignant recurrent effusions
- Crohn's disease s/p total colectomy with end ileostomy
Recommendations
- Stool studies thus far negative
- Start immodium standing
- Fecal calprotectin
- Hold avastin
- Replete electrolytes
- Close monitor of ostomy output
Will follow with you
Original Note:
Consultation
-
Date/Time Consultation Requested: 12/28/23 1250
Date/Time Consultation Performed: 12/28/23 1315
Requesting Provider: Kaleb Lugo MD
Performing Provider: NGUYEN Dejesus, Sadie HESS MD
Reason for Consultation: diarrhea hx crohn's disease
Medical History
Chief Complaint / HPI
Chief Complaint: diarrhea
History of Present Illness:
Pt is a 73yo with hx non small cell lung CA with prior lobectomy current chemo, pleural effusion with pleurx cath, COPD, HTN, hypercholesterolemia and crohns disease. She was diagnosed post in 1970 with wt loss, diarrhea, with prednisone
and Azulfidine use. 3 months after diagnosis she had total colectomy with end ileostomy. no med after but 1075 Azulfidine for 1-2 months. In 1979's flare with fistula near stoma with Cipro, Flagyl and infliximab with use for 10 years. in 2007
developed antibodies and stopped working and switched to Cimzia then Humira. 2012 developed antibodies. During scopes noted with inflammation near stoma. with prior dilations. She did try Entyvio which did not help and also some intolerance to
Imuran. 2015- OR for SB resection and translocation of ileostomy. Path with inflammation, adhesions stricturing c/w crohns. After surgery followed with Dr. Yi and off all meds without steroids or flare ups. MRE Jun 2022 normal but found
incidental lung CA with surgery 2021. She changed care to Dr. Salgado in May 2023 and reviewed for Keytruda therapy. Also hx elevated LFT's in past. She was noted last month with pneumonitis and placed on Bactrim. She was Krazati and
recent switch to Avastin this past Sunday. She now presents with abdominal pain and diarrhea. She believes symptoms began prior to Avastin. She was concerned as large volume output and output all water 10 + times normal output. She also had
abdominal pain.
She admits to some decreased appetite but denies odynophagia, dysphagia, GERD, nausea, vomiting, wt loss, blood or black in stools.
Past Medical History
Past Medical History: Cancer (non small cell lung CA with partial lobectomy and recurrence), COPD, HTN, Hypercholesterolemia, Seizures, Psychiatric (anxiety/depression) and Other (crohn's disease, pleural effusion with pleurx cath )
Past Surgical History: Bowel Resection (ileostomy with delayed wound closure), Cholecystectomy (with ruptured gallbladder with possible stones in bile duct) and Other (partial lobectomy)
Social History
Tobacco: Former Smoker (30 + years ago)
Alcohol: None
Drug: None
Living: Alone
Employment: Employed
Family History
Family History: Reviewed & Not Pertinent
Allergies / Home Medications
Allergy/AdvReac Type Severity Reaction Status Date / Time
acetaminophen [From Vicodin] Allergy Elevates Verified 12/27/23 09:36
ALT, AST
adagrasib [From Krazati] Allergy Unknown Verified 12/27/23 09:36
hydrocodone bitartrate Allergy Vomiting-'deathly Verified 12/27/23 09:36
[From Vicodin] sick in
stomach'
latex Allergy redness Verified 12/27/23 09:36
and
itching,
rash
meperidine HCl [From Demerol] Allergy Nausea / Verified 12/27/23 09:36
Vomiting
propoxyphene Allergy 'DARVOCET' Verified 12/27/23 09:36
[From Darvocet-N] PER
WRITTEN
ORDER FOR
03/24/19
�Medication �Instructions �Recorded
lisinopril 5 mg tablet 2.5 mg PO DAILY Blood Pressure 03/22/15
cyanocobalamin (vitamin B-12) 1,000 mcg IM MONTHLY Supplement 03/12/19
1,000 mcg tablet
cyclosporine 0.05 % eye drops in a 1 drp BOTH EYES BID dry eyes 03/12/19
dropperette (Restasis)
fluvoxamine 50 mg tablet 100 mg PO HS Mental Health/Anxiety 03/12/19
phenobarbital 64.8 mg tablet 64.8 mg PO QPM Neurological 03/12/19
Condition
rosuvastatin 5 mg tablet (Crestor) 5 mg PO QPM High Cholesterol 09/26/22
tiotropium bromide 18 mcg capsule 1 cap inhalation R DAILY 09/26/22
with inhalation device (Spiriva Lung/Breathing Issues
with HandiHaler)
loperamide 2 mg tablet 2 mg PO Q4HPRN PRN diarrhea 09/17/23
metoprolol succinate 50 mg 50 mg PO DAILY Heart 09/17/23
tablet,extended release 24 hr Disease/Condition
(Toprol XL)
sodium chloride 1,000 mg soluble 1,000 mg PO BID Supplement #60 tabs 09/20/23
tablet
ascorbic acid (vitamin C) 500 mg 500 mg PO DAILY Supplement 11/09/23
tablet (Vitamin C)
loratadine 10 mg tablet (Claritin) 10 mg PO DAILY Allergies 11/09/23
fluticasone furoate 200 1 inh inhalation R DAILY 11/22/23
mcg-vilanterol 25 mcg/dose Lung/Breathing Issues
inhalation powder (Breo Ellipta)
fluvoxamine 50 mg tablet 50 mg PO DAILY Mental 11/22/23
Health/Anxiety
levalbuterol tartrate 45 1 puff inhalation R Q6HPRN PRN sob 11/22/23
mcg/actuation aerosol inhaler
(Xopenex HFA)
ondansetron HCl 8 mg tablet 8 mg PO [id number] PRN nausea 11/22/23
Bactrim 1 tab PO MOWEFR Infection 12/04/23
metoprolol succinate 25 mg 25 mg PO HS Heart Disease/Condition 12/25/23
tablet,extended release 24 hr
lorazepam 1 mg tablet (Ativan) 0.5 mg PO BID anxiety 12/27/23
lorazepam 1 mg tablet (Ativan) 0.5 mg PO DAILY PRN anxiety 12/27/23
prednisone 10 mg tablet 10 mg PO .TAPER Anti-Inflammatory 12/27/23
Avastin 1 dose IV Q3W Cancer 12/28/23
Review of Systems
-
History Source: Patient
Constitutional: Reports Fatigue
EENT: Reports No Symptoms
Respiratory: Reports No Symptoms
Cardiac: Reports No Symptoms
Abdomen/GI: Reports Abdominal Pain and Diarrhea (large ostomy outputs )
: Reports No Symptoms
Musculoskeletal: Reports No Symptoms
Neurological: Reports Weakness
Endocrine: Reports No Symptoms
Hematologic/Lymphatic: Reports No Symptoms
Vital Signs
Temp Pulse Resp BP Pulse Ox
98.5 F 100 17 120/72 95
12/28/23 11:00 12/28/23 11:00 12/28/23 11:00 12/28/23 11:00 12/28/23 11:00
Physical Exam
Exam
General: Other (awake and alert)
HEENT: Normocephalic and Anicteric
Respiratory: Clear
Cardiac: Other (tachy)
GI: Soft, Non Distended, Tender (mild around ostomy site ) and Other (large healed abdominal scar)
Musculoskeletal: No Clubbing and No Cyanosis
Skin: Warm and Dry
Neuro: Awake, Alert and AO x 3
Psych: Calm
Results
WBC 4.9 10^3/uL (4.8-10.8) 12/28/23 05:46
Hgb 8.7 g/dL (12.0-16.0) L 12/28/23 05:46
Hct 28.0 % (37.0-47.0) L 12/28/23 05:46
MCV 77.1 fL (81.0-99.0) L 12/28/23 05:46
Plt Count 166 10^3/uL (130-400) 12/28/23 05:46
Absolute Neuts (auto) 4.3 10^3/uL (1.4-6.5) 12/28/23 05:46
Sodium 133 mmol/L (135-145) L 12/28/23 05:46
Potassium 3.1 mmol/L (3.5-5.1) L 12/28/23 05:46
Chloride 105 mmol/L (98-107) 12/28/23 05:46
Carbon Dioxide 25 mmol/L (22-30) 12/28/23 05:46
BUN 13 mg/dl (7-17) 12/28/23 05:46
Creatinine 0.4 mg/dL (0.6-1.0) L 12/28/23 05:46
Calcium 8.1 mg/dl (8.4-10.2) L 12/28/23 05:46
Total Bilirubin 0.4 mg/dl (0.2-1.3) 12/28/23 05:46
AST 28 U/L (14-36) 12/28/23 05:46
ALT 33 U/L (0-35) 12/28/23 05:46
Alkaline Phosphatase 67 U/L (38-126) 12/28/23 05:46
Lipase 105 U/L (23-300) 12/27/23 09:40
Diagnostic Image Results:
12/26 CT A/p
Moderate loculated right pleural effusion. Stable. Right-sided chest tube. Stable
spiculated groundglass and pleural-based solid left lower lobe pulmonary nodules. New. Considering the acute development, developing pneumonia or atelectasis should be considered
Mild right middle lobe consolidation. New. This may represent pneumonia or atelectasis
stable postsurgical change.
Tiny pericardial effusion versus pericardial thickening. New.
.
Stable moderate L3 compression fracture
Prior GI Procedures:
Colonoscopy: years ago
Assessment / Plan
-
Pt is a 73yo with hx non small cell lung CA with prior lobectomy current chemo, pleural effusion with pleurx cath, COPD, HTN, hypercholesterolemia and crohn's disease. She has had crohns disease since 1969 with initial total colectomy and end
ileostomy s, then SB resection and translocation of ileostomy. She has been on multiple therapies outlined in HPI including Infliximab, Azulfidine, Humira, Cymzia, and now no current therapy with last MRI 2021 with stable but noted lung CA. She
had been undergoing treatment for lung CA since that time with lobectomy, effusion with pleux cath and recent chemo with Keytruda then recently Krazati and recent switch to Avastin this past Sunday. she began prior to Avastin with change of ostomy
output then presents 12/26 to ER with high outputs and abdominal pain.
12/26 CT on admission with oral contrast to ostomy bag Moderate loculated right pleural effusion. Stable. Right-sided chest tube. Stable spiculated groundglass and pleural-based solid left lower lobe pulmonary nodules. New. Considering the acute
development, developing pneumonia or atelectasis should be considered Mild right middle lobe consolidation. New. This may represent pneumonia or atelectasis stable postsurgical change.Tiny pericardial effusion versus pericardial thickening.
New.Stable moderate L3 compression fracture
-increased ostomy output
-abdominal pain
-anemia
-longstanding crohn's disease no current medications
-lung CA with recent change to Avastin therapy
-steroid use
-effusion with chronic Pleurx
-COPD
PLAN:
Etiology of symptoms related to infectious process, crohns flare, chemo related vs other
slight improvement in output today
c-diff, norovirus neg other cx pending, add Giardia/crypto
cont diet as tolerated
accurate I+O reviewed with patient and staff
trend hbg
replete electrolytes
add CRP, ESR and fecal jamila
pt currently on prednisone 10mg daily
remain on probiotics
Lomotil PRN-- has had several doses since admission
will review with dr. Hess
-
-
Thank you for consultation and allowing me to participate in the patient's care. Please call the electronic instrument trades worker GI physician during the after hours with any questions or concerns.
--- NOTE | 2023-12-28 13:30 | CM ---
Addendum entered by Cassandra Spears 12/28/23 13:47:
Received message from Eli at [facility]. Pt ai active with them.
Phone - [phone]
Original Note:
Met with pt at bedside
Reports lives alone in a 3 story home
Independent, prepares meals, shops
DME - shower chair, oxygen - baseline 2L, provided by [employer]
Denies past SNF/HH
Has ride at d/c
PCP - Dr Brooklyn Cortez
Pharm - [facility]
Plan - anticipate home no needs vs VN
[2023-12-28 15:00] VITALS: BP 121/62
[2023-12-28 15:42] LABS: Erythrocyte Sed Rate 41 mm/hour (0-20)
--- NOTE | 2023-12-28 17:06 | W.PN.UPDATE ---
Update Note
Progress Note Update
Billing purposes
[2023-12-28] MEDS: CRESTOR 5 MG PO (17:27)
[2023-12-28] MEDS: LUMINAL 64.7999999999999972 MG PO (17:27)
[2023-12-28] MEDS: LOVENOX 40 MG SC (17:29)
[2023-12-28] MEDS: IMODIUM 4 MG PO (17:30)
[2023-12-28 19:00] VITALS: BP 130/71
[2023-12-28] MEDS: TOPROL XL 25 MG PO (21:07)
[2023-12-28] MEDS: LUVOX 100 MG PO (21:10)
[2023-12-28 23:00] VITALS: BP 112/62
[2023-12-29] MEDS: NSS 1000 IV (00:14)
[2023-12-29] MEDS: ULTRAM 25 MG PO ×2 (01:55→09:01)
[2023-12-29 03:00] VITALS: BP 124/74
[2023-12-29] MEDS: IMODIUM 2 MG PO ×4 (06:12→23:06)
[2023-12-29 07:45] VITALS: BP 112/67
[2023-12-29] MEDS: SYMBICORT 160/4.5 MCG INHALER 2 PUFF INH ×2 (07:54→18:07)
[2023-12-29] MEDS: SPIRIVA RESPIMAT 2.5 MCG 2 PUFF INH (07:54)
[2023-12-29 08:46] LABS: % Basophils 0.2 % (0-2); % Eosinophils 0.4 % (0-6); % Immature Granulocytes 0.2 % (0-0.5); % Lymphocytes 8.7 % (20.5-51.1); % Monocytes 1.9 % (1.7-9.3); % Neutrophils 88.6 % (42.2-75.2); Absolute Lymphocytes 0.4 10^3/uL (1.2-3.4); Absolute Monocytes 0.1 10^3/uL (0.1-0.6); Absolute Neutrophils 4.2 10^3/uL (1.4-6.5); Hematocrit 27.8 % (37.0-47.0); Hemoglobin 8.4 g/dL (12.0-16.0); Mean Corp Hgb Conc. 30.2 g/dL (33.0-37.0); Mean Corpuscular Hgb 23.9 pg (27.0-31.0); Mean Platelet Volume 9.3 fL (7.4-10.4); Nucleated Red Blood Cells % 0 %; Platelet Count 140 10^3/uL (130-400); Red Blood Cell Count 3.52 10^6/uL (4.20-5.40); Red Cell Dist. Width 16.7 % (11.5-14.5); White Blood Cell Count 4.7 10^3/uL (4.8-10.8)
[2023-12-29] MEDS: LUVOX 50 MG PO (08:46)
[2023-12-29] MEDS: ZESTRIL 2.5 MG PO (08:47)
[2023-12-29] MEDS: CLARITIN 10 MG PO (08:47)
[2023-12-29] MEDS: DELTASONE 10 MG PO (08:47)
[2023-12-29] MEDS: ATIVAN 0.5 MG PO ×2 (08:48→20:19)
[2023-12-29] MEDS: IMODIUM 4 MG PO (08:48)
[2023-12-29] MEDS: TOPROL XL 50 MG PO (08:48)
[2023-12-29] MEDS: VITAMIN C 500 MG PO (08:48)
[2023-12-29] MEDS: VISBIOME 1 CAP PO (08:48)
[2023-12-29] MEDS: SODIUM CHLORIDE 1 GRAM PO ×2 (08:48→20:19)
[2023-12-29] MEDS: RESTASIS 0.05% OPHTHALMIC EMULSION 1 DROPS BOTH EYES ×2 (08:48→20:18)
[2023-12-29] MEDS: ZOFRAN 4 MG IV (08:50)
[2023-12-29 10:46] LABS: ALT (SGPT) 26 U/L (0-35); AST (SGOT) 26 U/L (14-36); Albumin 2.7 g/dl (3.5-5.0); Alkaline Phosphatase 77 U/L (38-126); Blood Urea Nitrogen 12 mg/dl (7-17); Carbon Dioxide 25 mmol/L (22-30); Chloride 104 mmol/L (98-107); Estimated Creatinine Clearance 68 ml/min; Glucose 81 mg/dl (70-99); Magnesium 1.3 mg/dl (1.6-2.3); Potassium 3.1 mmol/L (3.5-5.1); Sodium 131 mmol/L (135-145); Total Bilirubin 0.4 mg/dl (0.2-1.3); Total Protein 4.9 g/dl (6.3-8.2); eGFR > 60.00
--- NOTE | 2023-12-29 11:17 | W.PN.GI.CBS2 ---
Today's Communication / Plan
-
Loperamide standing
Add PPI and fiber
Monitor ostomy output
Tolerating diet so stop IVF
Assessment / Plan
-
Pt is a 73yo with hx non small cell lung CA with prior lobectomy current chemo, pleural effusion with pleurx cath, COPD, HTN, hypercholesterolemia and crohn's disease. She has had crohns disease since 1969 with initial total colectomy and end
ileostomy 1969's, then SB resection and translocation of ileostomy. She has been on multiple therapies outlined in HPI including Infliximab, Azulfidine, Humira, Cymzia, and now no current therapy with last MRI 2021 with stable but noted lung CA. She
had been undergoing treatment for lung CA since that time with lobectomy, effusion with pleux cath and recent chemo with Keytruda then recently Krazati and recent switch to Avastin this past Sunday. she began prior to Avastin with change of ostomy
output then presents 12/26 to ER with high outputs and abdominal pain.
12/26 CT on admission with oral contrast to ostomy bag Moderate loculated right pleural effusion. Stable. Right-sided chest tube. Stable spiculated groundglass and pleural-based solid left lower lobe pulmonary nodules. New. Considering the acute
development, developing pneumonia or atelectasis should be considered Mild right middle lobe consolidation. New. This may represent pneumonia or atelectasis stable postsurgical change.Tiny pericardial effusion versus pericardial thickening.
New.Stable moderate L3 compression fracture
Impression
-acute increased ostomy output
suspect due to recent abx use and avastin newly started (this med has 20-40% incidence of diarrhea)
also consider crohn's flare
-anemia
-longstanding crohn's disease no current medications
-lung CA with recent change to Avastin therapy
-steroid use
-effusion with chronic Pleurx
-COPD
Plan
- Thus far stool studies negative for infectious cause
- Make loperamide standing
- Add fiber and PPI
- C/w diet she is tolerating so will stop IVF
- Continue to monitor stool output
- Serial electrolytes, please replete Magnesium
- Await fecal calprotectin
Will follow with you
Subjective
Subjective
Date of Service: December 29, 2023
Her output from end ileostomy around 850mL in past 24hrs. She is diligent about measuring. She reports increase in SOB recently. Did eat eggs and pancakes this AM.
Objective
Data Reviewed
Laboratory Data:
Laboratory Results
12/29/23 07:30
12/29/23 07:30
Laboratory Results
Magnesium 1.3 mg/dl (1.6-2.3) L 12/29/23 07:30
Total Bilirubin 0.4 mg/dl (0.2-1.3) 12/29/23 07:30
AST 26 U/L (14-36) 12/29/23 07:30
ALT 26 U/L (0-35) 12/29/23 07:30
Alkaline Phosphatase 77 U/L (38-126) 12/29/23 07:30
Lipase 105 U/L (23-300) 12/27/23 09:40
Vital Signs and I&O:
Vital Signs
Temp Pulse Resp BP Pulse Ox
98.8 F 90 16 112/67 99
12/29/23 07:45 12/29/23 08:01 12/29/23 08:01 12/29/23 07:45 12/29/23 08:01
I&O
12/28/23 12/29/23 12/30/23
06:59 06:59 06:59
Intake Total 120 / 120 1440 / 1440
Output Total 1040 / 1040
Balance 120 / 120 400 / 400
Physical Exam
Physical Exam
GEN: No acute distress, conversant, pleasant
HEENT: anicteric, extraocular movements intact, clear oropharynx without exudates wearing oxygen
GI: soft, mildly-distended, not tender to palpation, normal active bowel sounds, ostomy in LUQ with scant stool output
EXT: warm, well perfused, trace edema bilaterally
NEURO: AAOx3, non-focal
[2023-12-29 11:20] VITALS: BP 128/68
[2023-12-29] MEDS: KCL 270 MEQ IV (12:18)
[2023-12-29] MEDS: MAGNESIUM SULFATE 100 IV (12:19)
[2023-12-29] MEDS: METAMUCIL, KONSYL 1 PACKET PO (12:23)
[2023-12-29] MEDS: PROTONIX IV 40 MG IV (12:23)
--- NOTE | 2023-12-29 12:23 | W.PN.HOSP.TC ---
Today's Communication/Plan
-
Monitor vital signs see plan
Replete potassium and magnesium aggressively
DC further fluids
cw standing loperamide
Assessment / Plan
Assessment / Plan
General: Well Nourished and No Apparent Distress
HEENT: Anicteric and Moist mucous membranes
Respiratory: Clear and Non Labored Respirations; No Wheezes
Cardiac: S1/S2 and Regular Rhythm
Breast: Deferred by me
GI: Soft, Non Tender, Non Distended and Ostomy
Rectal: Deferred by Provider
Genito-urinary: No Hollingsworth
Musculoskeletal: No Edema
Neuro: Awake, Alert, Oriented and AO x 3
Psych: Calm and Intact Judgment/Insight
Abdominal pain, diarrhea could be secondary to possible gastritis
Could also be secondary to recent Bactrim use and Avastin
C. difficile negative, norovirus negative, started Imodium standing
Campylobacter, Shigella negative, added stool WBC
hx of Crohn's, however per patient has not had flareup for a while
GI following, stool calprotectin pending
CT abdomen without any acute abdominal pathology
Advised patient to follow-up with her outpatient oncologist at [facility]
Mild hyponatremia
Monitor
Hypokalemia
Replete
Hypomagnesemia
Replete
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
On continuous 2 to 2.5 L O2
Continue with prednisone; dec to 10mg per taper 12/28
Patient is now on Avastin
Follows up with [facility]
CT noted; there is no leukocytosis, no fever. Does not appear patient has pneumonia. Appears CT findings are related to recent pneumonitis that patient is dealing with secondary to chemotherapy. Patient reports she has no change in her
respiratory status.
Patient has been on prednisone, Bactrim was added for prophylaxis, only has couple days left so will discontinue Bactrim given diarrhea
Recurrent right pleural effusion status post Pleurx catheter.
Chronic anemia, normocytic multifactorial due to chronic inflammation and chemotherapy.
Lung carcinoma, non-small cell lung cancer status post partial right lower lobe lobectomy with recurrence
hx of HTN
Continue metoprolol, lisinopril
COPD
cw home meds
Crohn's disease with history of colostomy
History of seizure disorder
Anxiety
cw ativan
Hyperlipidemia
DVT prophylaxis
Lovenox
Full Code
Anticipated Discharge: Within 24 hours
Subjective/Interval History
-
Date of Service: December 29, 2023
still has diarrhea per patient
Objective Data
-
Labs:
Laboratory Results
12/29/23
07:30
WBC 4.7 L
Hgb 8.4 L
Hct 27.8 L
Plt Count 140
Sodium 131 L
Potassium 3.1 L
Chloride 104
Carbon Dioxide 25
BUN 12
Creatinine 0.4 L
Glucose 81
Calcium 8.0 L
Total Bilirubin 0.4
AST 26
ALT 26
Alkaline Phosphatase 77
Vital Signs:
Vital Signs
Temp Pulse Resp BP Pulse Ox
98.8 F 90 16 112/67 99
12/29/23 07:45 12/29/23 08:01 12/29/23 08:01 12/29/23 07:45 12/29/23 08:01
I&O
12/28/23 12/29/23 12/30/23
06:59 06:59 06:59
Intake Total 120 / 120 1440 / 1440
Output Total 1040 / 1040
Balance 120 / 120 400 / 400
[2023-12-29 15:45] VITALS: BP 130/74
[2023-12-29] MEDS: LOVENOX 40 MG SC (16:54)
[2023-12-29] MEDS: CRESTOR 5 MG PO (16:54)
[2023-12-29] MEDS: LUMINAL 64.7999999999999972 MG PO (16:54)
--- NOTE | 2023-12-29 17:52 | PTCARENOTE ---
PT ambulates independently in and out of the bathroom without any issues . Pt refuses to put on hospital socks and insists on using her own socks. PT iwth and K rider. It was burning, This nurse slowed down the rated because of severe pain.
It is still infusing. PT has been [place] with few rales in bases during this shift, She 96% on 2 liters but asked me to put it up to 2.5. Pulse ox 96% but feels less SOB. PT had IVF infusing this am and was dc due to [place]
--- NOTE | 2023-12-29 17:55 | PTCARENOTE ---
Pt with short burst of sinus tachy. She sits at mid 80s but went to sinus tach at 150s for about ten minutes. she was sitting on side of bed, SABINA PERDOMO MD aware, no new orders
[2023-12-29 20:02] VITALS: BP 140/77
[2023-12-29] MEDS: TOPROL XL 25 MG PO (22:04)
[2023-12-29] MEDS: LUVOX 100 MG PO (22:04)
[2023-12-29 23:52] VITALS: BP 120/64
[2023-12-30] MEDS: ZOFRAN 4 MG IV ×2 (00:51→10:38)
[2023-12-30] MEDS: ULTRAM 25 MG PO (00:59)
[2023-12-30 02:57] VITALS: BP 120/65
--- NOTE | 2023-12-30 04:23 | W.PN.UPDATE ---
Update Note
Progress Note Update
RN notified INTEGRITY ENGINEER patient with new fever of 100.4, Also with increase in cough, and mucous production. Reports patient is more fatigue that yesterday. Denies any shortness of breath and chest pain. Recent hx of recent pneumonitis that patient is
dealing with secondary to chemotherapy. Will order labs, Blood culture, UA, Procal and chest Xray to rule out any infection. Patient is not on any antibiotics at present. Patient refused to take Tylenol now.
[2023-12-30 06:00] VITALS: BMI 20.9
[2023-12-30] MEDS: IMODIUM 2 MG PO ×2 (06:16→10:39)
[2023-12-30 07:00] VITALS: BP 117/57
[2023-12-30] MEDS: SYMBICORT 160/4.5 MCG INHALER 2 PUFF INH ×2 (07:30→20:24)
[2023-12-30] MEDS: SPIRIVA RESPIMAT 2.5 MCG 2 PUFF INH (07:31)
[2023-12-30 08:18] LABS: % Basophils 0.7 % (0-2); % Eosinophils 0.3 % (0-6); % Immature Granulocytes 0.7 % (0-0.5); % Monocytes 5.5 % (1.7-9.3); % Neutrophils 79.8 % (42.2-75.2); Absolute Lymphocytes 0.4 10^3/uL (1.2-3.4); Absolute Monocytes 0.2 10^3/uL (0.1-0.6); Absolute Neutrophils 2.5 10^3/uL (1.4-6.5); Hematocrit 28.1 % (37.0-47.0); Hemoglobin 8.5 g/dL (12.0-16.0); Mean Corp Hgb Conc. 30.2 g/dL (33.0-37.0); Mean Corpuscular Hgb 23.7 pg (27.0-31.0); Mean Corpuscular Volume 78.5 fL (81.0-99.0); Mean Platelet Volume 9.9 fL (7.4-10.4); Nucleated Red Blood Cells % 0 %; Platelet Count 115 10^3/uL (130-400); Red Blood Cell Count 3.58 10^6/uL (4.20-5.40); Red Cell Dist. Width 16.5 % (11.5-14.5); White Blood Cell Count 3.1 10^3/uL (4.8-10.8)
[2023-12-30 08:59] LABS: ALT (SGPT) 28 U/L (0-35); AST (SGOT) 28 U/L (14-36); Albumin 2.7 g/dl (3.5-5.0); Alkaline Phosphatase 96 U/L (38-126); Blood Urea Nitrogen 12 mg/dl (7-17); Calcium 8.1 mg/dl (8.4-10.2); Carbon Dioxide 31 mmol/L (22-30); Chloride 99 mmol/L (98-107); Estimated Creatinine Clearance 68 ml/min; Glucose 90 mg/dl (70-99); Magnesium 1.4 mg/dl (1.6-2.3); Potassium 3.1 mmol/L (3.5-5.1); Sodium 131 mmol/L (135-145); Total Bilirubin 0.5 mg/dl (0.2-1.3); eGFR > 60.00
[2023-12-30] MEDS: TOPROL XL 50 MG PO (09:01)
[2023-12-30] MEDS: VITAMIN C 500 MG PO (09:01)
[2023-12-30] MEDS: VISBIOME 1 CAP PO (09:02)
[2023-12-30] MEDS: ATIVAN 0.5 MG PO (09:02)
[2023-12-30] MEDS: DELTASONE 10 MG PO (09:02)
[2023-12-30] MEDS: LUVOX 50 MG PO (09:02)
[2023-12-30] MEDS: CLARITIN 10 MG PO (09:02)
[2023-12-30] MEDS: ZESTRIL 2.5 MG PO (09:02)
[2023-12-30] MEDS: METAMUCIL, KONSYL 1 PACKET PO (09:03)
[2023-12-30] MEDS: PROTONIX IV 40 MG IV (09:03)
[2023-12-30] MEDS: RESTASIS 0.05% OPHTHALMIC EMULSION 1 DROPS BOTH EYES (09:03)
[2023-12-30] MEDS: SODIUM CHLORIDE 1 GRAM PO (09:03)
[2023-12-30 09:43] LABS: Urine Albumin Negative (Neg - Trace); Urine Bilirubin Negative (Negative); Urine Character Clear (Clear); Urine Color Yellow; Urine Glucose Negative (Negative); Urine Ketone Negative (Negative); Urine Leukocyte Trace (Negative); Urine Nitrite Negative (Negative); Urine Occult Blood Negative (Negative); Urine Specific Gravity 1.025 (<1.030); Urine Urobilinogen Negative (Neg - 1+)
[2023-12-30 09:52] LABS: Urine Mucus Moderate
[2023-12-30 09:53] LABS: Urine Bacteria Few (Negative)
[2023-12-30 11:00] VITALS: BP 115/67
--- NOTE | 2023-12-30 11:11 | W.PN.HOSP.TC ---
Addendum entered and electronically signed by Kaleb Lugo MD 12/30/23 12:44:
Chest x-ray with right-sided pneumonia. Will order CT chest for better evaluation. Start antibiotics
Original Note:
Today's Communication/Plan
-
Monitor vital sign closely plan
Chest x-ray
Blood culture
Replete potassium and magnesium
Pro-Salinas negative, monitor off antibiotic for now
Assessment / Plan
Assessment / Plan
General: Well Nourished and No Apparent Distress
HEENT: Anicteric and Moist mucous membranes
Respiratory: Clear and Non Labored Respirations; No Wheezes
Cardiac: S1/S2 and Regular Rhythm
Breast: Deferred by me
GI: Soft, Non Tender, Non Distended and Ostomy
Rectal: Deferred by Provider
Genito-urinary: No Hollingsworth
Musculoskeletal: No Edema
Neuro: Awake, Alert, Oriented and AO x 3
Psych: Calm and Intact Judgment/Insight
Abdominal pain, diarrhea could be secondary to possible gastritis
Could also be secondary to recent Bactrim use and Avastin
C. difficile negative, norovirus negative, started Imodium standing
Campylobacter, Shigella negative,
hx of Crohn's, however per patient has not had flareup for a while
GI following, stool calprotectin pending
CT abdomen without any acute abdominal pathology
Advised patient to follow-up with her outpatient oncologist at [facility]
Fever overnight
Blood culture pending, UA
Chest x-ray
Pro-Salinas 0.1
temp once 100.4; does not look septic, will monitor off abx for now until cx
Mild hyponatremia
Monitor
Hypokalemia
Replete
Hypomagnesemia
Replete
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
On continuous 2 to 2.5 L O2
Continue with prednisone; dec to 10mg per taper 12/28
Patient is now on Avastin
Follows up with [facility]
CT noted; there is no leukocytosis, no fever. Does not appear patient has pneumonia. Appears CT findings are related to recent pneumonitis that patient is dealing with secondary to chemotherapy. Patient reports she has no change in her
respiratory status.
Patient has been on prednisone, Bactrim was added for prophylaxis, only has couple days left so will discontinue Bactrim given diarrhea
Recurrent right pleural effusion status post Pleurx catheter. gets drained weekly
Chronic anemia, normocytic multifactorial due to chronic inflammation and chemotherapy.
Lung carcinoma, non-small cell lung cancer status post partial right lower lobe lobectomy with recurrence
hx of HTN
Continue metoprolol, lisinopril
COPD
cw home meds
Crohn's disease with history of colostomy
History of seizure disorder
Anxiety
cw ativan
Hyperlipidemia
DVT prophylaxis
Lovenox
Full Code
I spent a total of 53 minutes with the patient or on the floor. More than 50% of this time involved counseling and coordination of care.
Anticipated Discharge: 24 - 48 hours
Subjective/Interval History
-
Date of Service: December 30, 2023
Fever overnight
Objective Data
-
Labs:
Laboratory Results
12/30/23
08:02
WBC 3.1 L
Hgb 8.5 L
Hct 28.1 L
Plt Count 115 L
Sodium 131 L
Potassium 3.1 L
Chloride 99
Carbon Dioxide 31 H
BUN 12
Creatinine 0.4 L
Glucose 90
Calcium 8.1 L
Total Bilirubin 0.5
AST 28
ALT 28
Alkaline Phosphatase 96
Vital Signs:
Vital Signs
Temp Pulse Resp BP Pulse Ox
98.7 F 93 16 117/57 98
12/30/23 07:00 12/30/23 07:38 12/30/23 07:38 12/30/23 07:00 12/30/23 07:38
I&O
12/29/23 12/30/23 12/31/23
06:59 06:59 06:59
Intake Total 1440 / 1440 740 / 740
Output Total 1040 / 1040 150 / 150
Balance 400 / 400 590 / 590
[2023-12-30] MEDS: MAGNESIUM SULFATE 100 IV ×2 (11:24→16:15)
[2023-12-30] MEDS: KCL 270 MEQ IV (11:25)
--- NOTE | 2023-12-30 11:41 | W.PN.GI.CBS2 ---
Today's Communication / Plan
-
Add lomotil
Extra dose of IV mag today
D/w pt and RN that need to measure ostomy output (pt had been flushing it without measuring)
Infectious workup per primary team for fever overnight
Assessment / Plan
-
Pt is a 73yo with hx non small cell lung CA with prior lobectomy current chemo, pleural effusion with pleurx cath, COPD, HTN, hypercholesterolemia and crohn's disease. She has had crohns disease since 1969 with initial total colectomy and end
ileostomy , then SB resection and translocation of ileostomy. She has been on multiple therapies outlined in HPI including Infliximab, Azulfidine, Humira, Cymzia, and now no current therapy with last MRI 2021 with stable but noted lung CA. She
had been undergoing treatment for lung CA since that time with lobectomy, effusion with pleux cath and recent chemo with Keytruda then recently Krazati and recent switch to Avastin this past Sunday. she began prior to Avastin with change of ostomy
output then presents 12/26 to ER with high outputs and abdominal pain.
12/26 CT on admission with oral contrast to ostomy bag Moderate loculated right pleural effusion. Stable. Right-sided chest tube. Stable spiculated groundglass and pleural-based solid left lower lobe pulmonary nodules. New. Considering the acute
development, developing pneumonia or atelectasis should be considered Mild right middle lobe consolidation. New. This may represent pneumonia or atelectasis stable postsurgical change.Tiny pericardial effusion versus pericardial thickening.
New.Stable moderate L3 compression fracture
Impression
-acute increased ostomy output
suspect due to recent abx use and avastin newly started (this med has 20-40% incidence of diarrhea)
also consider crohn's flare
-electrolyte abnormalities
-fever 12/28
-anemia
-longstanding crohn's disease no current medications
-lung CA with recent change to Avastin therapy
-steroid use
-effusion with chronic Pleurx
-COPD
Plan
- Thus far stool studies negative for infectious cause
- C/w standing loperamide
- C/w fiber and PPI
- Add lomotil
- Strongly encourage her to allow team to measure ostomy output and not flush it
- Serial electrolytes, please replete Magnesium
- Await fecal calprotectin
Will follow with you
Subjective
Subjective
Date of Service: December 30, 2023
She unfortunately is not measuring ostomy output any more. Advised against flushing it. Overnight with fever and some increase SOB. CXR and BC ordered by primary team
Objective
Data Reviewed
Laboratory Data:
Laboratory Results
12/30/23 08:02
12/30/23 08:02
Laboratory Results
Magnesium 1.4 mg/dl (1.6-2.3) L 12/30/23 08:02
Total Bilirubin 0.5 mg/dl (0.2-1.3) 12/30/23 08:02
AST 28 U/L (14-36) 12/30/23 08:02
ALT 28 U/L (0-35) 12/30/23 08:02
Alkaline Phosphatase 96 U/L (38-126) 12/30/23 08:02
Lipase 105 U/L (23-300) 12/27/23 09:40
Vital Signs and I&O:
Vital Signs
Temp Pulse Resp BP Pulse Ox
98.7 F 93 16 117/57 98
12/30/23 07:00 12/30/23 07:38 12/30/23 07:38 12/30/23 07:00 12/30/23 07:38
I&O
12/29/23 12/30/23 12/31/23
06:59 06:59 06:59
Intake Total 1440 / 1440 740 / 740
Output Total 1040 / 1040 150 / 150
Balance 400 / 400 590 / 590
Physical Exam
Physical Exam
GEN: No acute distress, conversant, pleasant, wearing headband
HEENT: anicteric, extraocular movements intact, clear oropharynx without exudates, pleurex in RUQ
GI: soft, mildly-distended, not tender to palpation, ostomy in LLQ
EXT: warm, well perfused, trace edema bilaterally
NEURO: AAOx3, non-focal
[2023-12-30] MEDS: ZOSYN 50 IV (13:19)
[2023-12-30] MEDS: IMODIUM 4 MG PO ×2 (13:19→16:14)
[2023-12-30] MEDS: LOMOTIL 1 TABLET PO (13:19)
--- NOTE | 2023-12-30 14:22 | PHA.VAN.IN ---
Assessment
- Assessment
Renal Function: Appears similar to baseline (0.6 on 11/20/23)
Maximum Temperature: 100.4 on 12/30/23 at 02:57
Minimum Temperature: 98.3 on 12/30/23 at 11:00
Concomitant Antimicrobials: Piperacillin-tazobactam
- Previous Dosing Experience
Previous Regimen: Vancomycin 500mg IV Q12hrs was stopped before levels taken
Date of Regimen: 11/23/23
Provided Trough of: estimated trough: 14.7
Provided AUC of: estimated AUC: 500
Patient's SCR is: Similar to previous dosing experience
Patient's weight is: Similar to previous dosing experience (49kg now 51.9kg)
AUC Dosing Plan
- Dosing Variables
Dosing Weight (kg): 51.9kg
Dosing CrCl (ml/min): 68
Vd coefficient (L/kg): 0.7
- Empiric Dosing
Initial / Loading Dose: Vancomycin 1250mg IV X 1 dose. Administration pending
Maintenance Regimen: Vancomycin 500mg IV Q12 hrs to start 12/31/23 at 06:00
Estimated AUC (mcg*h/mL): 466
Estimated Peak (mcg*h/mL): 27
Estimated Trough (mcg/ml): 14
Estimated Half Life (H): 11.39
- Monitoring
MRSA Screen: Ordered per protocol (MRSA PCR ordered)
Pharmacokinetics Vancomycin I
- -
Patient Age: 73
Patient Sex: Female
Vancomycin Day #: 1
Indication: Pulmonary/Respiratory
Requesting Provider: Dr Fracisco Lugo
Pertinent Antimicrobial Allergies:
No antibiotic allergies
Height / Weight:
Height 5 ft 2 in
Actual Weight 51.88 kg
IBW in k.1
Adjusted BW in k.8
Pertinent Past Medical History: Lung cancer on Avastin, chronic bactrim, recur pleural effusion pleurx cath
- Vital Signs / Lab Results
Temp Pulse Resp BP Pulse Ox
98.3 F 85 18 115/67 100
12/30/23 11:00 12/30/23 11:00 12/30/23 11:00 12/30/23 11:00 12/30/23 11:00
Lab Results - Hematology
12/28/23 12/29/23 12/30/23
05:46 07:30 08:02
WBC 4.9 4.7 L 3.1 L
Lab Results - Chemistry
12/28/23 12/29/23 12/30/23
05:46 07:30 08:02
BUN 13 12 12
Creatinine 0.4 L 0.4 L 0.4 L
Estimated Creat Clear 68 68 68
Albumin 2.7 L 2.7 L 2.7 L
Lab Results - Urine
12/30/23
09:31
Urine Nitrite (Reflex) Negative
Leukocyte Esterase Rfl Trace A
Urine WBC (Reflex) 6-10
Ur Squamous Epith Cells 11-15
Urine Bacteria (Reflex) Few A
Microbiology Results
12/30/23 09:31 Gram Stain - Preliminary
Sputum
12/27/23 17:54 Blood Culture - Preliminary
Blood/Venous No Growth in 48 hours- Final report to follow
12/27/23 17:54 Blood Culture - Preliminary
Blood/Venous No Growth in 48 hours- Final report to follow
12/27/23 15:13 Salmonella/Shigella Culture - Final
Feces/Stool No Salmonella, Shigella, Aeromonas or Plesiomonas species
isolated.
Campylobacter Culture - Final
No Campylobacter species isolated.
Stool Leukocytes - Final
12/27/23 15:13 Cryptosporidium/Giardia - Final
Feces/Stool Negative for Cryptosporidium and/or Giardia Lamblia
antigens.
C. difficile GDH Antigen & Toxins - Final
Negative for toxigenic C.difficile
- Final
Negative for Norovirus GI and GII.
[2023-12-30] MEDS: ZOSYN IV (14:36)
[2023-12-30] MEDS: VANCOCIN 275 MG IV (14:36)
[2023-12-30 15:00] VITALS: BP 122/76
[2023-12-30] MEDS: LUMINAL 64.7999999999999972 MG PO (16:14)
[2023-12-30] MEDS: CRESTOR 5 MG PO (16:14)
[2023-12-30] MEDS: LOVENOX 40 MG SC (16:15)
--- NOTE | 2023-12-30 17:42 | PTCARENOTE ---
MD made aware of am labs and CXR results. Pt ordered and sent for CT scan of chest no results noted as of yet. PT had IV mag and IV KCL as per MD order. Another order of IV mag ordered by SERENA. I did contact GI personally to ensure that was not an
accidental duplicate ordere. GI ensured she wanted the extra dose of mag given. second bag of IV mag infusing now. IV Vanco and IV Zosyn ordered and infused as per MD order. Labs in for AM . Pt very unhappy about all of the testing. Pt
appears less SOB less MUHAMMAD than yesterday, no coughing noted so far this shift sputum and urine sent
[2023-12-30 19:00] VITALS: BP 136/76
[2023-12-30 23:00] VITALS: BP 131/64
[2023-12-31] MEDS: IMODIUM PO ×3 (00:05→23:42)
[2023-12-31] MEDS: ZOSYN 50 IV ×5 (00:11→23:42)
[2023-12-31] MEDS: ZOFRAN 4 MG IV ×3 (00:20→17:58)
[2023-12-31] MEDS: LUVOX 100 MG PO ×2 (00:32→21:00)
[2023-12-31] MEDS: TOPROL XL 25 MG PO ×2 (00:33→20:58)
[2023-12-31] MEDS: RESTASIS 0.05% OPHTHALMIC EMULSION 1 DROPS BOTH EYES ×3 (00:40→20:57)
[2023-12-31] MEDS: ATIVAN 0.5 MG PO ×3 (00:40→20:57)
[2023-12-31] MEDS: SODIUM CHLORIDE 1 GRAM PO ×3 (00:41→21:00)
[2023-12-31] MEDS: XOPENEX HFA 45 MCG INHALER 1 PUFF INH (01:12)
[2023-12-31 02:44] VITALS: BMI 21.2
[2023-12-31] MEDS: ZOSYN IV (02:56)
[2023-12-31 03:00] VITALS: BP 132/79
[2023-12-31 05:59] LABS: % Basophils 0.6 % (0-2); % Eosinophils 0.6 % (0-6); % Immature Granulocytes 1.7 % (0-0.5); % Lymphocytes 24.7 % (20.5-51.1); % Monocytes 16.3 % (1.7-9.3); % Neutrophils 56.1 % (42.2-75.2); Absolute Lymphocytes 0.4 10^3/uL (1.2-3.4); Absolute Monocytes 0.3 10^3/uL (0.1-0.6); Hematocrit 25.8 % (37.0-47.0); Hemoglobin 7.9 g/dL (12.0-16.0); Mean Corp Hgb Conc. 30.6 g/dL (33.0-37.0); Mean Corpuscular Hgb 23.9 pg (27.0-31.0); Mean Corpuscular Volume 77.9 fL (81.0-99.0); Nucleated Red Blood Cells % 0 %; Platelet Count 104 10^3/uL (130-400); Red Blood Cell Count 3.31 10^6/uL (4.20-5.40); Red Cell Dist. Width 16.5 % (11.5-14.5)
[2023-12-31] MEDS: IMODIUM 4 MG PO ×3 (06:16→17:11)
[2023-12-31 06:17] LABS: White Blood Cell Count 1.8 10^3/uL (4.8-10.8)
[2023-12-31] MEDS: FLUSH (NSS) 2 FLUSH IV (06:19)
[2023-12-31 06:35] LABS: ALT (SGPT) 29 U/L (0-35); AST (SGOT) 32 U/L (14-36); Albumin 2.6 g/dl (3.5-5.0); Alkaline Phosphatase 115 U/L (38-126); Blood Urea Nitrogen 12 mg/dl (7-17); Carbon Dioxide 32 mmol/L (22-30); Chloride 93 mmol/L (98-107); Estimated Creatinine Clearance 68 ml/min; Glucose 95 mg/dl (70-99); Magnesium 1.9 mg/dl (1.6-2.3); Potassium 3.1 mmol/L (3.5-5.1); Sodium 130 mmol/L (135-145); Total Bilirubin 0.5 mg/dl (0.2-1.3); eGFR > 60.00
[2023-12-31] MEDS: VANCOCIN HCL 500 MG 100 IV (07:17)
[2023-12-31 07:30] VITALS: BP 117/73
--- NOTE | 2023-12-31 07:45 | PTCARENOTE ---
@1427: TT NGUYEN Patricia ,on critical lab ; WBC = 1.8 .
[2023-12-31] MEDS: SYMBICORT 160/4.5 MCG INHALER 2 PUFF INH ×2 (08:19→19:44)
[2023-12-31] MEDS: SPIRIVA RESPIMAT 2.5 MCG 2 PUFF INH (08:19)
--- NOTE | 2023-12-31 08:33 | W.PN.GI.CBS2 ---
Addendum entered and electronically signed by Sadie Delcid Do, MD 12/31/23 10:43:
I saw and examined the patient.
The REPLACER's note was reviewed and I agree with the note.
Comment: Ostomy output much less per pt 600mL. Stools more formed and she has been declining some loperamide. Vitals stable Tmax 100.4F yesterday. ostomy scant output, NTTP, NABS. No TTP around pleurex.
Impression
- Ostomy output improving
- C/w loperamide standing
- Explained that diarrhea can worsen now that abx resumed
- Await fecal calprotectin
- Add on phos level
- Recommend aggressively repleting potassium
At this juncture GI will sign off please call for questions
Original Note:
Today's Communication / Plan
-
- Thus far stool studies negative for infectious cause would be more concern Avastin as newly started as cause, less likely IBD
- C/w standing loperamide current dose 4mg Q6 hours but patient holding some doses with some form to stools-- getting about 2 doses per day
-hold adding Lomotil
-will hold fiber as now form and may not help with ileostomy
-cont PPI daily
-accurate I+O and monitor stools as now Zosyn also added 12/30
-mag corrected 1.9 but still need K 3.1 today
- Await fecal calprotectin to exclude crohn's related
Assessment / Plan
-
Pt is a 73yo with hx non small cell lung CA with prior lobectomy current chemo, pleural effusion with pleurx cath, COPD, HTN, hypercholesterolemia and crohn's disease. She has had crohns disease since 1969 with initial total colectomy and end
ileostomy , then SB resection and translocation of ileostomy. She has been on multiple therapies outlined in HPI including Infliximab, Azulfidine, Humira, Cymzia, and now no current therapy with last MRI 2021 with stable but noted lung CA. She
had been undergoing treatment for lung CA since that time with lobectomy, effusion with pleux cath and recent chemo with Keytruda then Krazati(developed Pneumonitis) and recent switch to Avastin Sunday prior to admission . She felt stool changes
started prior to Avastin. She then presented to ER4/ with high outputs and abdominal pain.
12/26 CT on admission with oral contrast to ostomy bag Moderate loculated right pleural effusion. Stable. Right-sided chest tube. Stable spiculated groundglass and pleural-based solid left lower lobe pulmonary nodules. New. Considering the acute
development, developing pneumonia or atelectasis should be considered Mild right middle lobe consolidation. New. This may represent pneumonia or atelectasis stable postsurgical change.Tiny pericardial effusion versus pericardial thickening.
New.Stable moderate L3 compression fracture
Impression
-acute increased ostomy output
suspect due to recent abx use and avastin newly started (this med has 20-40% incidence of diarrhea)
also consider crohn's flare
-electrolyte abnormalities
-fever 12/28
-CT chest with concern for PNA/chronic loculated effusion
-anemia with pancytopenia/neutropenia 12/30
-longstanding crohn's disease no current medications
-lung CA with recent change to Avastin therapy
-steroid use
-chronic effusion with chronic Pleurx
-COPD
Plan
- Thus far stool studies negative for infectious cause would be more concern Avastin as newly started as cause, less likely IBD
- C/w standing loperamide current dose 4mg Q6 hours but patient holding some doses with some form to stools-- getting about 2 doses per day
-hold adding Lomotil
-will hold fiber as now form and may not help with ileostomy
-cont PPI daily
-accurate I+O and monitor stools as now Zosyn also added 12/30
-mag corrected 1.9 but still need K 3.1 today
- Await fecal calprotectin to exclude crohn's related
Will follow with you
Subjective
Subjective
Date of Service: December 31, 2023
per chart 1050 liquid stool output--per patient more form to stools -- pt frustrated with ongoing admission and concern for PNA
Objective
Data Reviewed
Laboratory Data:
Laboratory Results
12/31/23 05:17
12/31/23 05:17
Laboratory Results
Magnesium 1.9 mg/dl (1.6-2.3) 12/31/23 05:17
Total Bilirubin 0.5 mg/dl (0.2-1.3) 12/31/23 05:17
AST 32 U/L (14-36) 12/31/23 05:17
ALT 29 U/L (0-35) 12/31/23 05:17
Alkaline Phosphatase 115 U/L (38-126) 12/31/23 05:17
Lipase 105 U/L (23-300) 12/27/23 09:40
Vital Signs and I&O:
Vital Signs
Temp Pulse Resp BP Pulse Ox
99.1 F 78 16 117/73 92
12/31/23 07:30 12/31/23 08:26 12/31/23 08:26 12/31/23 07:30 12/31/23 08:26
I&O
12/30/23 12/31/23 01/01/24
06:59 06:59 06:59
Intake Total 740 / 740 1040 / 1040
Output Total 150 / 150 1470 / 1470
Balance 590 / 590 -430 / -430
Physical Exam
Physical Exam
HEENT: Anicteric and Moist mucous membranes
Cardiology: Normal Sinus Rhythm
Pulmonary: Other (decreased, no shortness of breath at rest )
GI: Non Distended, Non Tender and Other (ostomy with liquid brown stool slight form)
Neuro: Non Focal
[2023-12-31] MEDS: ZESTRIL 2.5 MG PO (08:54)
[2023-12-31] MEDS: TOPROL XL 50 MG PO (08:55)
[2023-12-31] MEDS: PROTONIX IV 40 MG IV (08:55)
[2023-12-31] MEDS: VITAMIN C 500 MG PO (08:55)
[2023-12-31] MEDS: DELTASONE 10 MG PO (08:55)
[2023-12-31] MEDS: VISBIOME 1 CAP PO (08:55)
[2023-12-31] MEDS: CLARITIN 10 MG PO (08:57)
[2023-12-31] MEDS: LUVOX 50 MG PO (08:57)
--- NOTE | 2023-12-31 09:01 | W.PN.HOSP.TC ---
Today's Communication/Plan
-
Continue present course of antibiotics
Will need to place on neutropenic precautions
Ostomy output seems to be lessening
Replete potassium
Magnesium stabilized
Continue loperamide
Consult infectious disease and oncology
Assessment / Plan
Assessment / Plan
General: Well Nourished and No Apparent Distress
HEENT: Anicteric and Moist mucous membranes
Respiratory: Clear and Non Labored Respirations; No Wheezes
Cardiac: S1/S2 and Regular Rhythm
Breast: Deferred by me
GI: Soft, Non Tender, Non Distended and Ostomy
Rectal: Deferred by Provider
Genito-urinary: No [place]
Musculoskeletal: No Edema
Neuro: Awake, Alert, Oriented and AO x 3
Psych: Calm and Intact Judgment/Insight
Febrile neutropenia
-Chest x-ray and CT scan reviewed
-Procalcitonin normal
-May be from recent course of chemotherapy
-Will started yesterday on empiric vancomycin and Zosyn
-Will consult infectious disease and also oncology/follows with [facility]
Abdominal pain, diarrhea could be secondary to possible gastritis
Could also be secondary to recent Bactrim use and Avastin
C. difficile negative, norovirus negative, started Imodium standing
Campylobacter, Shigella negative,
hx of Crohn's, however per patient has not had flareup for a while
GI following, stool calprotectin pending
CT abdomen without any acute abdominal pathology
Advised patient to follow-up with her outpatient oncologist at [place]
Fever overnight/neutropenic now which is new
Blood culture pending, UA
Chest x-ray
Pro-[place] 0.1
temp once 100.4; does not look septic,
Mild hyponatremia
Monitor
Hypokalemia
Replete
Hypomagnesemia
Replete
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
On continuous 2 to 2.5 L O2
Continue with prednisone; dec to 10mg per taper 12/28
Patient is now on Avastin
Follows up with [place]
CT noted; there is no leukocytosis, no fever. Does not appear patient has pneumonia. Appears CT findings are related to recent pneumonitis that patient is dealing with secondary to chemotherapy. Patient reports she has no change in her
respiratory status.
Patient has been on prednisone, Bactrim was added for prophylaxis, only has couple days left so will discontinue Bactrim given diarrhea
Recurrent right pleural effusion status post Pleurx catheter. gets drained weekly
Chronic anemia, normocytic multifactorial due to chronic inflammation and chemotherapy.
Lung carcinoma, non-small cell lung cancer status post partial right lower lobe lobectomy with recurrence
hx of HTN
Continue metoprolol, lisinopril
COPD
cw home meds
Crohn's disease with history of colostomy
History of seizure disorder
Anxiety
cw ativan
Hyperlipidemia
DVT prophylaxis
Lovenox
Full Code
I spent a total of 57 minutes with the patient or on the floor. More than 50% of this time involved counseling and coordination of care.
Anticipated Discharge: 24 - 48 hours
Subjective/Interval History
-
Date of Service: December 31, 2023
He is weak and depressed no significant respiratory distress noted remains on prior O2 mildly productive sputum wants to have oncology involved here we also discussed the onset of her leukopenia and neutropenia while here and possible relation to
her chemotherapy recently started. Relates that she follows with oncology at [place]
Objective Data
-
Labs:
Laboratory Results
12/31/23
05:17
WBC 1.8 L*
Hgb 7.9 L
Hct 25.8 L
Plt Count 104 L
Sodium 130 L
Potassium 3.1 L
Chloride 93 L
Carbon Dioxide 32 H
BUN 12
Creatinine 0.4 L
Glucose 95
Calcium 8.0 L
Total Bilirubin 0.5
AST 32
ALT 29
Alkaline Phosphatase 115
Vital Signs:
Vital Signs
Temp Pulse Resp BP Pulse Ox
99.1 F 78 16 117/73 92
12/31/23 07:30 12/31/23 08:26 12/31/23 08:26 12/31/23 07:30 12/31/23 08:26
I&O
12/30/23 12/31/23 01/01/24
06:59 06:59 06:59
Intake Total 740 / 740 1040 / 1040
Output Total 150 / 150 1470 / 1470
Balance 590 / 590 -430 / -430
Review of Systems
-
History Source: Patient
EENT: Denies Sore Throat or Mouth Pain
Respiratory: Reports Cough
Cardiac: Reports No Symptoms
Physical Exam
-
General: Well Developed
HEENT: Normocephalic
Respiratory: Rhonchi
Cardiac: Regular Rhythm
GI: Soft, Nontender and Ostomy
Musculoskeletal: No Clubbing
Skin: Warm
Neuro: Awake, Alert and Oriented
Psych: Calm
Data Reviewed
-
Total Time Spent with Patient (in minutes): 56
Labs: Labs Reviewed by me
[2023-12-31] MEDS: METAMUCIL, KONSYL PO (09:19)
[2023-12-31] MEDS: KCL 40 MEQ PO (10:02)
--- NOTE | 2023-12-31 10:43 | W.PN.UPDATE ---
Update Note
Progress Note Update
Billing purposes
--- NOTE | 2023-12-31 11:31 | W.PN.UPDATE ---
Update Note
Progress Note Update
pt with increased diarrhea now requesting Lomotil. Per [facility] and reviewed with pharmacist Destini contraindicated with oral potassium she just took. also can interact with Meperidine which she is allergic to and can lead to nausea. Will hold
for now added PRN metamucil and continues with Imodium use.
[2023-12-31 11:45] VITALS: BP 142/88
[2023-12-31] MEDS: METAMUCIL, KONSYL 1 PACKET PO (11:50)
[2023-12-31] MEDS: KCL 270 MEQ IV (12:18)
--- NOTE | 2023-12-31 14:08 | CM ---
Case management following for d/c planning
Continue IV antibiotics. Placed on neutropenic precautions.
Ostomy output decreased
Consults to ID and oncology
Pt known to [facility] - can resume at d/c
CM will continue to follow for d/c planning
Plan - anticipate home with HH
--- NOTE | 2023-12-31 14:11 | PHA.VAN.FU ---
Vancomycin Assessment / Plan
- Assessment
Renal Function: Stable
WBC's are: Trending Down
Neutropenia: ANC = 1000
Concomitant Antimicrobials: piperacillin/tazobactam
- Dosing Plan
Continue: Vanc 500mg Q12H
- Monitoring Plan
No level(s) ordered at this time: consider levels in next few days
- Follow Up
Pharmacy will continue to follow.
Vancomycin Follow UP
- -
Patient Age: 73
Patient Sex: Female
Vancomycin Day #: 2
Indication: Pulmonary/Respiratory
Requesting Provider: Dr Fracisco Lugo
Pertinent Antimicrobial Allergies:
No pertinent antibiotic allergies
Height / Weight:
Height 5 ft 2 in
Actual Weight 52.481 kg
IBW in k.1
Adjusted BW in k.8
Pertinent Past Medical History: NSCLC
- Vital Signs / Lab Results
Temp Pulse Resp BP Pulse Ox
98.6 F 107 16 142/88 93
12/31/23 11:45 12/31/23 11:45 12/31/23 11:45 12/31/23 11:45 12/31/23 11:45
Lab Results - Hematology
12/29/23 12/30/23 12/31/23
07:30 08:02 05:17
WBC 4.7 L 3.1 L 1.8 L*
Lab Results - Chemistry
12/29/23 12/30/23 12/31/23
07:30 08:02 05:17
BUN 12 12 12
Creatinine 0.4 L 0.4 L 0.4 L
Estimated Creat Clear 68 68 68
Albumin 2.7 L 2.7 L 2.6 L
Microbiology Results
12/30/23 21:02 Nasal Screen MRSA (PCR) - Final
Nose
12/30/23 09:31 Respiratory Culture - Preliminary
Sputum Usual Respiratory Roxana
Gram Stain - Preliminary
12/27/23 15:13 Salmonella/Shigella Culture - Final
Feces/Stool No Salmonella, Shigella, Aeromonas or Plesiomonas species
isolated.
Campylobacter Culture - Final
No Campylobacter species isolated.
Shiga Toxin Test - Final
No E. coli Shiga Toxin 1 or 2 detected.
Stool Leukocytes - Final
12/30/23 08:18 Blood Culture - Preliminary
Blood/Venous No Growth in 24 hours- Final report to follow
12/30/23 08:02 Blood Culture - Preliminary
Blood/Venous No Growth in 24 hours- Final report to follow
12/27/23 17:54 Blood Culture - Preliminary
Blood/Venous No Growth in 72 hours- Final report to follow
12/27/23 17:54 Blood Culture - Preliminary
Blood/Venous No Growth in 72 hours- Final report to follow
--- NOTE | 2023-12-31 14:59 | CON.ONC ---
Addendum entered and electronically signed by Sangeeta Jose MD 12/31/23 17:51:
No need for G-CSF in the absence of infection. D/C'd and not given.
Original Note:
Documented by User: [email or web address] Telles 12/31/23 16:24
Impression
Impression
Recurrent, KRAS non-small cell lung cancer On Alimta/Avastin
Pancytopenia secondary to antineoplastic therapy
Electrolyte imbalance, hyponatremia, hypokalemia, hypomagnesemia
Mild pulmonary interstitial edema and Scattered bilateral areas of parenchymal consolidation
Chronic loculated right pleural effusion with Pleurx
Loose stool
Plan
Plan
on Avastin -Monitor for bleeding, thrombosis, bowel perforation
on Alimta-likely etiology of pancytopenia, continue folic acid
ANC 1000-will need to consider role of G-CSF
Continue steroids as recommended by patient's primary oncologist for management of pneumonitis secondary to prior therapies
Outpatient follow-up with primary oncologist for further recommendations
Patient History
History of Present Illness
73-year-old female presented with abdominal pain and diarrhea. She reports that the diarrhea has been present for several months, however has progressively worsened and now accompanied by significant abdominal pain. She has a significant medical
history that includes recurrent metastatic, KRAS G12C non-small lung cancer status post lobectomy and adjuvant Alimta/ cisplatin that completed in December 2022. Unfortunately on follow-up imaging she was noted to have progression of disease April
2022 for which she sought follow-up at [facility] under the management of Dr. Monterroso. She received carbo, paclitaxel, Pembro x 4 cycles May 2023 followed by maintenance Pembro that was stopped due to progression of disease. In
August 2023 she has started on adagrasib that was complicated by pneumonitis for which she continues a slow steroid taper. She has a right Pleurx catheter for recurrent right pleural effusion. She was then transition to Alimta/Avastin. CBC with
WBC 1.8, ANC 1000, hemoglobin 7.9 MCV 77.9, platelet count 104,000. BMP with electrolyte abnormalities including hyponatremia, hypokalemia, and hypomagnesemia. CT chest showed Mild pulmonary interstitial edema and Scattered bilateral areas of
parenchymal consolidation. Improved stool output since admission.
Clinically, denies fever, chills, cough, shortness of breath at rest, nausea, vomiting, overt bleeding. Continues on prednisone 10mg daily for pneumonitis
100.4 Fahrenheit yesterday, remains afebrile today. No hypotension. 3 L via nasal cannula.
Past-Medical/Surgical History
Past medical/surgical history stage IIB [id number] non-small cell lung cancer status post right lower lobectomy 2021, Crohn's disease status post large bowel resection with ostomy, anxiety, dental implants, seizure disorder, hypertension,
hyperlipidemia, COPD, cholecystectomy
Patient Medication
�Medication �Instructions �Recorded �Confirmed �Last Taken �Type
lisinopril 5 mg tablet 2.5 mg PO DAILY Blood Pressure 03/22/15 12/27/23 12/27/23 History
cyanocobalamin (vitamin B-12) 1,000 mcg IM MONTHLY Supplement 03/12/19 12/27/23 12/21/23 History
1,000 mcg tablet
cyclosporine 0.05 % eye drops in a 1 drp BOTH EYES BID dry eyes 03/12/19 12/27/23 12/27/23 History
dropperette (Restasis)
fluvoxamine 50 mg tablet 100 mg PO HS Mental Health/Anxiety 03/12/19 12/27/23 12/26/23 History
phenobarbital 64.8 mg tablet 64.8 mg PO QPM Neurological 03/12/19 12/27/23 12/26/23 History
Condition
rosuvastatin 5 mg tablet (Crestor) 5 mg PO QPM High Cholesterol 09/26/22 12/27/23 12/26/23 History
tiotropium bromide 18 mcg capsule 1 cap inhalation R DAILY 09/26/22 12/27/23 12/27/23 History
with inhalation device (Spiriva Lung/Breathing Issues
with HandiHaler)
loperamide 2 mg tablet 2 mg PO Q4HPRN PRN diarrhea 09/17/23 12/27/23 12/18/23 History
metoprolol succinate 50 mg 50 mg PO DAILY Heart 09/17/23 12/27/23 12/27/23 History
tablet,extended release 24 hr Disease/Condition
(Toprol XL)
sodium chloride 1,000 mg soluble 1,000 mg PO BID Supplement #60 tabs 09/20/23 12/27/23 12/27/23 Rx
tablet
ascorbic acid (vitamin C) 500 mg 500 mg PO DAILY Supplement 11/09/23 12/27/23 12/27/23 History
tablet (Vitamin C)
loratadine 10 mg tablet (Claritin) 10 mg PO DAILY Allergies 11/09/23 12/27/23 12/27/23 History
fluticasone furoate 200 1 inh inhalation R DAILY 11/22/23 12/27/23 12/27/23 History
mcg-vilanterol 25 mcg/dose Lung/Breathing Issues
inhalation powder (Breo Ellipta)
fluvoxamine 50 mg tablet 50 mg PO DAILY Mental 11/22/23 12/27/23 12/27/23 History
Health/Anxiety
levalbuterol tartrate 45 1 puff inhalation R Q6HPRN PRN sob 11/22/23 12/27/23 Unknown History
mcg/actuation aerosol inhaler
(Xopenex HFA)
ondansetron HCl 8 mg tablet 8 mg PO [id number] PRN nausea 11/22/23 12/27/23 12/10/23 History
Bactrim 1 tab PO MOWEFR Infection 12/04/23 12/27/23 12/26/23 History
metoprolol succinate 25 mg 25 mg PO HS Heart Disease/Condition 12/25/23 12/27/23 12/26/23 History
tablet,extended release 24 hr
lorazepam 1 mg tablet (Ativan) 0.5 mg PO BID anxiety 12/27/23 12/27/23 12/27/23 History
lorazepam 1 mg tablet (Ativan) 0.5 mg PO DAILY PRN anxiety 12/27/23 12/27/23 Unknown History
prednisone 10 mg tablet 10 mg PO .TAPER Anti-Inflammatory 12/27/23 12/27/23 12/27/23 History
20 mg
Avastin 1 dose IV Q3W Cancer 12/28/23 12/28/23 Unknown History
Active Medications
Generic Name Dose Route Start Last Admin
Trade Name Freq PRN Reason Stop Dose Admin
Ascorbic Acid 500 mg 12/28/23 08:00 12/31/23 08:55
Ascorbic Acid 500 Mg Tablet PO 01/25/24 07:59 500 mg
DAILY KRISTEN Administration
Budesonide/Formoterol Fumarate 2 puff 12/28/23 08:00 12/31/23 08:19
Symbicort Inhaler 160/4.5 INH 01/25/24 07:59 2 puff
R BID KRISTEN Administration
Cyclosporine 1 drops 12/27/23 20:00 12/31/23 08:57
Cyclosporine 0.05% (Ophthalmic Emulsion) 10 Drop Droperette BOTH EYES 01/24/24 19:59 1 drops
BID KRISTEN Administration
Enoxaparin Sodium 40 mg 12/28/23 18:00 12/30/23 16:15
Enoxaparin Sodium 40 Mg/0.4 Ml Syringe SC 01/25/24 17:59 40 mg
QPM KRISTEN Administration
Fluvoxamine Maleate 100 mg 12/27/23 22:00 12/31/23 00:32
Fluvoxamine 50 Mg Tablet PO 01/24/24 21:59 100 mg
HS KRISTEN Administration
Fluvoxamine Maleate 50 mg 12/28/23 08:00 12/31/23 08:57
Fluvoxamine 50 Mg Tablet PO 01/25/24 07:59 50 mg
DAILY KRISTEN Administration
Vancomycin HCl 100 mls @ 100 mls/hr 12/31/23 06:00 12/31/23 07:17
Vancocin Hcl 500 Mg IV 100 mls
Q12H KRISTEN Administration
Piperacillin Sod/Tazobactam Sod 3.375 gram in 50 mls @ 100 mls/hr 12/31/23 06:00 12/31/23 11:11
Zosyn IV 50 mls
Q6H KRISTEN Administration
Lactobacillus/Bifidobacterium 1 cap 12/28/23 13:00 12/31/23 08:55
Lactobac/Bifidobac (Visbiome) PO 01/25/24 12:59 1 cap
DAILY KRISTEN Administration
Levalbuterol 1 puff 12/27/23 18:24 12/31/23 01:12
Levalbuterol 45 Mcg Inhaler INH 1 puff
R Q6HPRN PRN Administration
sob
Protocol
Lisinopril 2.5 mg 12/28/23 08:00 12/31/23 08:54
Lisinopril 5 Mg Tablet PO 01/25/24 07:59 2.5 mg
DAILY KRISTEN Administration
Loperamide HCl 4 mg 12/30/23 11:45 12/31/23 11:11
Loperamide 2 Mg Capsule PO 01/26/24 11:59 4 mg
Q6H KRISTEN Administration
Loratadine 10 mg 12/28/23 08:00 12/31/23 08:57
Loratadine 10 Mg Tablet PO 01/25/24 07:59 10 mg
DAILY KRISTEN Administration
Lorazepam 0.5 mg 12/27/23 20:46
Lorazepam 0.5 Mg Tablet PO 01/24/24 20:45
DAILY PRN
anxiety
Lorazepam 0.5 mg 12/27/23 20:00 12/31/23 08:54
Lorazepam 0.5 Mg Tablet PO 01/24/24 19:59 0.5 mg
BID KRISTEN Administration
Metoprolol Succinate 25 mg 12/27/23 22:00 12/31/23 00:33
Metoprolol 25 Mg Extended Release Tablet PO 01/24/24 21:59 25 mg
HS KRISTEN Administration
Metoprolol Succinate 50 mg 12/28/23 08:00 12/31/23 08:55
Metoprolol 50 Mg Extended Release Tablet PO 01/25/24 07:59 50 mg
DAILY KRISTEN Administration
Ondansetron HCl 4 mg 12/28/23 01:33 12/31/23 11:49
Ondansetron 4 Mg/2 Ml Vial IV 01/25/24 01:32 4 mg
Q6HPRN PRN Administration
NAUSEA/VOMITING
Pantoprazole Sodium 40 mg 12/29/23 12:00 12/31/23 08:55
Pantoprazole Sodium 40 Mg/10 Ml Vial IV 01/26/24 11:59 40 mg
DAILY KRISTEN Administration
Phenobarbital Sodium 64.8 mg 12/27/23 21:00 12/30/23 16:14
Phenobarbital 32.4 Mg Tablet PO 01/24/24 20:59 64.8 mg
QPM KRISTEN Administration
Prednisone 10 mg 12/29/23 08:00 12/31/23 08:55
Prednisone 10 Mg Tablet PO 01/26/24 07:59 10 mg
DAILY KRISTEN Administration
Psyllium Hydrophilic Mucilloid 1 packet 12/31/23 11:23 12/31/23 11:50
Psyllium Packet PO 01/28/24 11:22 1 packet
DAILYPRN PRN Administration
diarrhea
Rosuvastatin Calcium 5 mg 12/27/23 19:00 12/30/23 16:14
Rosuvastatin (Crestor) 5 Mg Tablet PO 01/24/24 18:59 5 mg
QPM KRISTEN Administration
Sodium Chloride 1 gram 12/27/23 20:00 12/31/23 08:57
Sodium Chloride 1 Gram Tablet PO 01/24/24 19:59 1 gram
BID KRISTEN Administration
Sodium Chloride 0 flush 12/27/23 21:00 12/31/23 06:19
Sodium Chloride 0.9% (Flush) Syringe IV 01/24/24 20:59 2 flush
PER PROTOCOL KRISTEN Administration
Tiotropium [place] 2 puff 12/28/23 08:00 12/31/23 08:19
Tiotropium (Spiriva Respimat) 2.5 Mcg Inhaler INH 01/25/24 07:59 2 puff
R DAILY KRISTNE Administration
Tramadol HCl 25 mg 12/28/23 08:12 12/30/23 00:59
Tramadol Hcl 50 Mg Tablet PO 01/25/24 08:11 25 mg
Q6HPRN PRN Administration
moderate to severe pain
Physical Exam
-
General: Appears Chronically Ill
HEENT: Negative Jaundice
Cardiology: S1 and S2
Pulmonary: Rhonchi
GI: Soft
Musculoskeletal: No Edema
Extremities: Negative Edema
Neurology: Non Focal
Skin: Warm
Labs
Lab Results
WBC 1.8 10^3/uL (4.8-10.8) L* 12/31/23 05:17
RBC 3.31 10^6/uL (4.20-5.40) L 12/31/23 05:17
Hgb 7.9 g/dL (12.0-16.0) L 12/31/23 05:17
Hct 25.8 % (37.0-47.0) L 12/31/23 05:17
MCV 77.9 fL (81.0-99.0) L 12/31/23 05:17
MCH 23.9 pg (27.0-31.0) L 12/31/23 05:17
MCHC 30.6 g/dL (33.0-37.0) L 12/31/23 05:17
RDW 16.5 % (11.5-14.5) H 12/31/23 05:17
Plt Count 104 10^3/uL (130-400) L 12/31/23 05:17
MPV 10.0 fL (7.4-10.4) 12/31/23 05:17
Abs Immat Gran (auto) 0.0 10^3/uL (0-0.05) 12/31/23 05:17
Absolute Neuts (auto) 1.0 10^3/uL (1.4-6.5) L 12/31/23 05:17
Absolute Lymphs (auto) 0.4 10^3/uL (1.2-3.4) L 12/31/23 05:17
Absolute Monos (auto) 0.3 10^3/uL (0.1-0.6) 12/31/23 05:17
Absolute Eos (auto) 0.0 10^3/uL (0-0.7) 12/31/23 05:17
Absolute Basos (auto) 0.0 10^3/uL (0-0.2) 12/31/23 05:17
Immature Gran % 1.7 % (0-0.5) H 12/31/23 05:17
Neutrophils % 56.1 % (42.2-75.2) 12/31/23 05:17
Lymphocytes % 24.7 % (20.5-51.1) 12/31/23 05:17
Monocytes % 16.3 % (1.7-9.3) H 12/31/23 05:17
Eosinophils % 0.6 % (0-6) 12/31/23 05:17
Basophils % 0.6 % (0-2) 12/31/23 05:17
Creatinine 0.4 mg/dL (0.6-1.0) L 12/31/23 05:17
Vital Signs
Vital Signs
Temp Pulse Resp BP Pulse Ox
98.6 F 107 16 142/88 93
12/31/23 11:45 12/31/23 11:45 12/31/23 11:45 12/31/23 11:45 12/31/23 11:45

Documented by User: Sangeeta Jose MD 12/31/23 17:46
Plan
Plan
on Avastin -Monitor for bleeding, thrombosis, bowel perforation
on Alimta-likely etiology of pancytopenia, continue folic acid
ANC 1000-will need to consider role of G-CSF
Continue steroids as recommended by patient's primary oncologist for management of pneumonitis secondary to prior therapies
Outpatient follow-up with primary oncologist for further recommendations
Attending Addendum
Reason for admission: wateru diarrhea with crampy abdominal pain.
Pt states diarrhea better although still somewhat watery.
GI w/u ongoing.
RUQ tenderness on exam but near site of Pleurx. She was advised that the Pleurx is sitting on one of her ribs and may be contributing to pain.
Alimta can cause diarrhea but only 1% incidence of grade 3-4 diarrhea. Avastin also has diarrhea listed as a side effect. She has been on Bactrim prophylaxis and this also could have contributed to diarrhea. Bactrim now D/C'd.
All stool cultures appear to be negative.
Consider adding cholestyramine if diarrhea cannot be controlled with Imodium alone.
Lomotil contraindicated due to interactions with her other medications.
Thank you for consult, will follow along with you.
Patient History
History of Present Illness
73-year-old female presented with abdominal pain and diarrhea. She reports that the diarrhea has been present for several months, however has progressively worsened and now accompanied by significant abdominal pain. She has a significant medical
history that includes recurrent metastatic, KRAS G12C non-small lung cancer status post lobectomy and adjuvant Alimta/ cisplatin that completed in December 2022. Unfortunately on follow-up imaging she was noted to have progression of disease April
2022 for which she sought follow-up at [facility] under the management of Dr. Lugo. She received carbo, paclitaxel, Pembro x 4 cycles May 2023 followed by maintenance Pembro that was stopped due to progression of disease. In
August 2023 she has started on adagrasib that was complicated by pneumonitis for which she continues a slow steroid taper. She has a right Pleurx catheter for recurrent right pleural effusion. She was then transition to Alimta/Avastin. CBC with
WBC 1.8, ANC 1000, hemoglobin 7.9 MCV 77.9, platelet count 104,000. BMP with electrolyte abnormalities including hyponatremia, hypokalemia, and hypomagnesemia. CT chest showed Mild pulmonary interstitial edema and Scattered bilateral areas of
parenchymal consolidation. Improved stool output since admission.
Clinically, denies fever, chills, cough, shortness of breath at rest, nausea, vomiting, overt bleeding. Continues on prednisone 10mg daily for pneumonitis
100.4 Fahrenheit yesterday, remains afebrile today. No hypotension. 3 L via nasal cannula.
--- NOTE | 2023-12-31 15:27 | CON.ID ---
Consultation
-
Date/Time Consultation Requested: 12/31/2023 09:50
Date/Time Consultation Performed: 12/31/2023 1500
Requesting Provider: Dr. Yen
Performing Provider: Dr. Truong
Reason for Consultation: Neutropenia; fever
Chief Complaint / Past History
History of Present Illness
Benjamin Fernández is a 73-year-old female with a significant past medical history of non-small cell lung cancer recently starting Avastin being evaluated regarding febrile neutropenia.
The patient presents to the hospital on 12/26 secondary to significant diarrhea, fatigue. No history of fevers or chills prior to admission.
In review of history, the patient was originally diagnosed with non-small cell lung cancer in June 2022. She underwent right lower lobe lobectomy with reportedly clean margins and underwent postop chemotherapy.
She reports that she was found to again have cancer in February 2023 and began chemotherapy in April. She has had recurrent right pleural effusion and has a Pleurx catheter in place.
The patient was admitted last month secondary to chemotherapy�induced pneumonitis secondary to Krazati. She has since been changed to Avastin, and received her first dose last Sunday. She is currently on a prednisone taper. Since admission her
white count has trended down, and today was found to have an ANC of 1000. Yesterday she was found to have a temperature of 100.4 degrees.
Currently she admits to some cough with yellowish sputum. She additionally notes significant generalized fatigue.
Past History
Additional Past Medical History:
Non-small cell lung cancer (stage IV)
COPD
HTN
Dyslipidemia
Crohn's disease
Seizure disorder
Anxiety
Additional Past Surgical History:
Colectomy with colostomy
Cholecystectomy
Right lower lobe lobectomy
Pleurx catheter placement
Allergy History:
acetaminophen [From Vicodin] Allergy (Verified 12/27/23 09:36)
Elevates ALT, AST
adagrasib [From Krazati] Allergy (Verified 12/27/23 09:36)
Unknown
hydrocodone bitartrate [From Vicodin] Allergy (Verified 12/27/23 09:36)
Vomiting-'deathly sick in stomach'
latex Allergy (Verified 12/27/23 09:36)
redness and itching, rash
meperidine HCl [From Demerol] Allergy (Verified 12/27/23 09:36)
Nausea / Vomiting
propoxyphene [From Darvocet-N] Allergy (Verified 12/27/23 09:36)
'DARVOCET' PER WRITTEN ORDER FOR 03/24/19
Medications Reviewed: Yes
Current Antibiotics:
Zosyn 3.375 g IV every 6 hours
Vancomycin
Social History
Tobacco: Former Smoker
Alcohol: Occasional
Drug: None
Living: Alone
Employment: Employed
Family History
Family History: Not Pertinent
Review of Systems
Vital Signs
Temp Pulse Resp BP Pulse Ox
98.6 F 107 16 142/88 93
12/31/23 11:45 12/31/23 11:45 12/31/23 11:45 12/31/23 11:45 12/31/23 11:45
Physical Exam
Physical Exam
Constitutional: No Acute Distress, Comfortable and Non-toxic
Eyes: No Conjunctival Hemorrhage and Sclera Anicteric
Oral: No Thrush and No Ulcers
Cardiovascular: S1/S2; Negative S3/S4 or Murmur
Pulmonary: Non Labored; Negative Wheezes or Rales
Gastrointestinal: Soft, Non Tender, Non Distended, No Rebound, No Guarding and Other (Ileostomy)
Extremities: Negative Edema, Cyanosis or Erythema
Musculoskeletal: Negative Joint Swelling or Joint Effusion
Skin: Warm and Dry; Negative Rash or Jaundice
Neurological: Awake, Alert and Oriented
Psychological: Calm
Lab / Diagnostic Study Results
12/31/23 05:17
12/31/23 05:17
Abs Immat Gran (auto) 0.0 10^3/uL (0-0.05) 12/31/23 05:17
Absolute Neuts (auto) 1.0 10^3/uL (1.4-6.5) L 12/31/23 05:17
Absolute Lymphs (auto) 0.4 10^3/uL (1.2-3.4) L 12/31/23 05:17
Absolute Monos (auto) 0.3 10^3/uL (0.1-0.6) 12/31/23 05:17
Absolute Basos (auto) 0.0 10^3/uL (0-0.2) 12/31/23 05:17
Immature Gran % 1.7 % (0-0.5) H 12/31/23 05:17
Neutrophils % 56.1 % (42.2-75.2) 12/31/23 05:17
Lymphocytes % 24.7 % (20.5-51.1) 12/31/23 05:17
Monocytes % 16.3 % (1.7-9.3) H 12/31/23 05:17
Eosinophils % 0.6 % (0-6) 12/31/23 05:17
Basophils % 0.6 % (0-2) 12/31/23 05:17
ESR 41 mm/hour (0-20) H 12/28/23 05:46
C-Reactive Protein 72.00 mg/L (0.0-10.00) H 12/28/23 05:46
Procalcitonin 0.10 ng/ml (0.0-0.25) 12/30/23 08:02
Ur Squamous Epith Cells - /LPF (Few) 12/30/23 09:31
Microbiology Results
Micro:
12/30/23 21:02 Nasal Screen MRSA (PCR) - Final
Nose
12/30/23 09:31 Respiratory Culture - Preliminary
Sputum Usual Respiratory Roxana
Gram Stain - Preliminary
12/27/23 15:13 Salmonella/Shigella Culture - Final
Feces/Stool No Salmonella, Shigella, Aeromonas or Plesiomonas species
isolated.
Campylobacter Culture - Final
No Campylobacter species isolated.
Shiga Toxin Test - Final
No E. coli Shiga Toxin 1 or 2 detected.
Stool Leukocytes - Final
12/30/23 08:18 Blood Culture - Preliminary
Blood/Venous No Growth in 24 hours- Final report to follow
12/30/23 08:02 Blood Culture - Preliminary
Blood/Venous No Growth in 24 hours- Final report to follow
12/27/23 17:54 Blood Culture - Preliminary
Blood/Venous No Growth in 72 hours- Final report to follow
12/27/23 17:54 Blood Culture - Preliminary
Blood/Venous No Growth in 72 hours- Final report to follow
12/27/23 15:13 Cryptosporidium/Giardia - Final
Feces/Stool Negative for Cryptosporidium and/or Giardia Lamblia
antigens.
C. difficile GDH Antigen & Toxins - Final
Negative for toxigenic C.difficile
- Final
Negative for Norovirus GI and GII.
Assessment / Plan
Leukopenia with borderline neutropenia
Episode of fever
Anemia
Non-small cell lung cancer (stage IV)
- Newly on avastin
COPD
HTN
Dyslipidemia
Crohn's disease
Seizure disorder
Anxiety
Recommendations:
Blood cultures no growth x 24 hours.
Discontinue further vancomycin.
Continue Zosyn for the present.
For now, patient is not fully 'neutropenic' as ANC is approximately 1000, but would continue to follow closely given recent chemotherapy.
Trend white count and temperature curve.
[2023-12-31 16:00] VITALS: BP 114/72
[2023-12-31] MEDS: FOLVITE 1 MG PO (17:11)
[2023-12-31] MEDS: LUMINAL 64.7999999999999972 MG PO (17:11)
[2023-12-31] MEDS: LOVENOX 40 MG SC (17:11)
[2023-12-31] MEDS: CRESTOR 5 MG PO (17:16)
[2023-12-31 19:00] VITALS: BP 119/63
[2023-12-31 23:00] VITALS: BP 124/68
[2023-12-31] MEDS: FLUSH (NSS) 1 FLUSH IV (23:44)
[2024-01-01] MEDS: IMODIUM 4 MG PO ×4 (02:56→23:12)
[2024-01-01] MEDS: ULTRAM 25 MG PO (02:56)
[2024-01-01 03:00] VITALS: BP 133/72
[2024-01-01] MEDS: ZOSYN 50 IV ×2 (05:15→12:38)
[2024-01-01] MEDS: FLUSH (NSS) 2 FLUSH IV (05:16)
[2024-01-01 06:23] LABS: Hematocrit 25.6 % (37.0-47.0); Hemoglobin 7.6 g/dL (12.0-16.0); Mean Corp Hgb Conc. 29.7 g/dL (33.0-37.0); Mean Corpuscular Hgb 23.5 pg (27.0-31.0); Mean Corpuscular Volume 79.3 fL (81.0-99.0); Mean Platelet Volume 10.8 fL (7.4-10.4); Nucleated Red Blood Cells % 1.4 %; Platelet Count 92 10^3/uL (130-400); Red Blood Cell Count 3.23 10^6/uL (4.20-5.40); Red Cell Dist. Width 16.2 % (11.5-14.5)
[2024-01-01 06:40] LABS: White Blood Cell Count 1.5 10^3/uL (4.8-10.8)
[2024-01-01 06:53] LABS: ALT (SGPT) 32 U/L (0-35); AST (SGOT) 34 U/L (14-36); Albumin 2.5 g/dl (3.5-5.0); Alkaline Phosphatase 128 U/L (38-126); Blood Urea Nitrogen 10 mg/dl (7-17); Carbon Dioxide 33 mmol/L (22-30); Chloride 95 mmol/L (98-107); Estimated Creatinine Clearance 68 ml/min; Glucose 91 mg/dl (70-99); Magnesium 1.2 mg/dl (1.6-2.3); Potassium 3.3 mmol/L (3.5-5.1); Sodium 132 mmol/L (135-145); Total Bilirubin 0.5 mg/dl (0.2-1.3); Total Protein 4.7 g/dl (6.3-8.2); eGFR > 60.00
[2024-01-01 07:30] VITALS: BP 124/73
[2024-01-01] MEDS: SPIRIVA RESPIMAT 2.5 MCG 2 PUFF INH (07:36)
[2024-01-01] MEDS: SYMBICORT 160/4.5 MCG INHALER 2 PUFF INH ×2 (07:37→20:31)
[2024-01-01 08:15] LABS: Band Neutrophils 0 % (0-3); Eosinophils 1 % (0-6); Lymphocytes 39 % (20-51); Monocytes 15 % (2-9); Normal RBC Morphology Yes; Platelets Checked Yes; Segmented Neutrophils 45 % (42-75); Total Cells Counted 100
[2024-01-01 08:17] LABS: Absolute Neutrophils -Man Diff 0.6 10^3/uL (1.4-6.5)
[2024-01-01] MEDS: FOLVITE 1 MG PO (08:27)
[2024-01-01] MEDS: VISBIOME 1 CAP PO (08:27)
[2024-01-01] MEDS: VITAMIN C 500 MG PO (08:27)
[2024-01-01] MEDS: TOPROL XL 50 MG PO (08:28)
[2024-01-01] MEDS: DELTASONE 10 MG PO (08:28)
[2024-01-01] MEDS: ZESTRIL 2.5 MG PO (08:28)
[2024-01-01] MEDS: ATIVAN 0.5 MG PO ×2 (08:29→20:36)
[2024-01-01] MEDS: SODIUM CHLORIDE 1 GRAM PO ×2 (08:34→20:36)
[2024-01-01] MEDS: CLARITIN 10 MG PO (08:34)
[2024-01-01] MEDS: LUVOX 50 MG PO (08:34)
[2024-01-01] MEDS: RESTASIS 0.05% OPHTHALMIC EMULSION 1 DROPS BOTH EYES ×2 (08:34→20:36)
[2024-01-01] MEDS: PROTONIX 40 MG PO (08:47)
--- NOTE | 2024-01-01 08:56 | W.PN.HOSP.TC ---
Today's Communication/Plan
-
Continue to monitor pancytopenia and neutropenia
Neutropenic precautions
Reviewed ID and hematology oncology recommendations
Holding off further antibiotics
Continue to monitor and replete electrolyte deficits
Assessment / Plan
Assessment / Plan
General: Well Nourished and No Apparent Distress
HEENT: Anicteric and Moist mucous membranes
Respiratory: Clear and Non Labored Respirations; No Wheezes
Cardiac: S1/S2 and Regular Rhythm
Breast: Deferred by me
GI: Soft, Non Tender, Non Distended and Ostomy
Rectal: Deferred by Provider
Genito-urinary: No [place]
Musculoskeletal: No Edema
Neuro: Awake, Alert, Oriented and AO x 3
Psych: Calm and Intact Judgment/Insight
Pancytopenia/with neutropenia
-No febrile course for the last 36 hours
-Chest x-ray and CT scan reviewed
-Procalcitonin normal
-May be from recent course of chemotherapy
-Initial course of empiric antibiotics discontinued after being seen by infectious disease
-oncology also follows with [facility]/in absence of definitive infection holding off on G-CSF
Abdominal pain, diarrhea could be secondary to possible gastritis
Could also be secondary to recent Bactrim use and Avastin
C. difficile negative, norovirus negative, started Imodium standing
Campylobacter, Shigella negative,
hx of Crohn's, however per patient has not had flareup for a while
GI following, stool calprotectin pending
CT abdomen without any acute abdominal pathology
Advised patient to follow-up with her outpatient oncologist at [facility]
Fever overnight/neutropenic now which is new
Blood culture pending, UA
Chest x-ray
Pro-[place] 0.1
temp once 100.4; does not look septic,
Mild hyponatremia
Monitor
Hypokalemia
Replete again today
Hypomagnesemia
Replete again today
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
On continuous 2 to 2.5 L O2
Continue with prednisone; dec to 10mg per taper 12/28
Patient is now on Avastin
Follows up with [facility]
CT noted; there is no leukocytosis, no fever. Does not appear patient has pneumonia. Appears CT findings are related to recent pneumonitis that patient is dealing with secondary to chemotherapy. Patient reports she has no change in her
respiratory status.
Patient has been on prednisone, Bactrim was added for prophylaxis, only has couple days left so will discontinue Bactrim given diarrhea
Recurrent right pleural effusion status post Pleurx catheter. gets drained weekly
Chronic anemia, normocytic multifactorial due to chronic inflammation and chemotherapy.
Lung carcinoma, non-small cell lung cancer status post partial right lower lobe lobectomy with recurrence
hx of HTN
Continue metoprolol, lisinopril
COPD
cw home meds
Crohn's disease with history of colostomy
History of seizure disorder
Anxiety
cw ativan
Hyperlipidemia
DVT prophylaxis
Lovenox
Full Code
I spent a total of 57 minutes with the patient or on the floor. More than 50% of this time involved counseling and coordination of care.
Anticipated Discharge: 24 - 48 hours
Subjective/Interval History
-
Date of Service: January 01, 2024
States she feels weaker and fatigued. Wants to try and get off oxygen with wearing it around her neck when walked in did not look to be overtly dyspneic no febrile course overnight
Objective Data
-
Labs:
Laboratory Results
01/01/24
05:51
WBC 1.5 L*
Hgb 7.6 L
Hct 25.6 L
Plt Count 92 L
Sodium 132 L
Potassium 3.3 L
Chloride 95 L
Carbon Dioxide 33 H
BUN 10
Creatinine 0.4 L
Glucose 91
Calcium 8.0 L
Total Bilirubin 0.5
AST 34
ALT 32
Alkaline Phosphatase 128 H
Vital Signs:
Vital Signs
Temp Pulse Resp BP Pulse Ox
98.5 F 78 16 124/73 97
01/01/24 07:30 01/01/24 07:41 01/01/24 07:41 01/01/24 07:30 01/01/24 07:41
I&O
12/31/23 01/01/24 01/02/24
06:59 06:59 06:59
Intake Total 1040 / 1040 650 / 650 340 / 340
Output Total 1470 / 1470 250 / 250
Balance -430 / -430 650 / 650 90 / 90
Review of Systems
-
History Source: Patient
EENT: Reports No Symptoms Reported
Respiratory: Reports No Symptoms
Cardiac: Reports No Symptoms
Abdomen/GI: Reports No Symptoms and Diarrhea (States output has diminished)
Physical Exam
-
General: Appears Chronically Ill and Cachectic
HEENT: Normocephalic
Respiratory: Crackles
Cardiac: Regular Rhythm and Tachycardic
Neuro: Awake, Alert, Oriented, AO x 3 and No Motor Deficits
Psych: Calm
Data Reviewed
-
Total Time Spent with Patient (in minutes): 45
Labs: Labs Reviewed by me (Magnesium again depressed from 1.9-1.2 today potassium 3.3 remains depressed hemoglobin down to 7.6 white count down to 1.5 with an ANC of 0.6 from 1.0)
[2024-01-01] MEDS: PROTONIX IV IV (09:18)
[2024-01-01] MEDS: KCL 160 MEQ IV (09:55)
[2024-01-01] MEDS: MAGNESIUM SULFATE 50 IV (09:56)
[2024-01-01 11:45] VITALS: BP 122/72
--- NOTE | 2024-01-01 14:10 | W.PN.ONC ---
Today's Communication / Plan
-
Continue symptom mgmt for diarrhea, electrolyte repletion, imodium
Afebrile, ANC = 600 today, though elevated monocytes suggest pending WBC recovery
Wean O2 as able, weekly Pleurex drainage. Steroid taper to finish 01/03/24 for treatment of pneumonitis
She hopes to establish care w/ pulm locally
She also requests to establish care w/ me at [facility] for further treatment; will ask our senior master scheduler to contact her with an appt in next 1-2 weeks
d/c planning
Impression
Impression
Recurrent, KRAS non-small cell lung cancer On Alimta/Avastin
Pancytopenia secondary to antineoplastic therapy
Electrolyte imbalance, hyponatremia, hypokalemia, hypomagnesemia
Mild pulmonary interstitial edema and Scattered bilateral areas of parenchymal consolidation
Chronic loculated right pleural effusion with Pleurx
Loose stool
Plan
Plan
Continue symptom mgmt for diarrhea, electrolyte repletion, imodium
Afebrile, ANC = 600 today, though elevated monocytes suggest pending WBC recovery
Wean O2 as able, weekly Pleurex drainage. Steroid taper to finish 01/03/24 for treatment of pneumonitis
She hopes to establish care w/ pulm locally
She also requests to establish care w/ me at [facility] for further treatment; will ask our senior master scheduler to contact her with an appt in next 1-2 weeks
d/c planning
Subjective/Objective
Subjective/Objective
diarrhea somewhat better
still needing O2, 3L
Vital Signs:
Vital Signs
Temp Pulse Resp BP Pulse Ox
98.2 F 97 16 122/72 98
01/01/24 11:45 01/01/24 11:45 01/01/24 11:45 01/01/24 11:45 01/01/24 12:41
Lab Results:
Laboratory Data
WBC 1.5 10^3/uL (4.8-10.8) L* 04/16/24 05:51
Hgb 7.6 g/dL (12.0-16.0) L 01/01/24 05:51
Plt Count 92 10^3/uL (130-400) L 01/01/24 05:51
eGFR > 60.00 01/01/24 05:51
[2024-01-01 14:46] LABS: Calprotectin, Fecal 45 ug/g (<=49)
--- NOTE | 2024-01-01 14:48 | CM ---
Case Management following for d/c planning
On neutropenic precautions. Continue IV antibiotics
ID and oncology following
Pt known to [facility] - updates sent in Care Port
CM will continue to follow for d/c planning
Plan - Anticipate home with HH
[2024-01-01 16:00] VITALS: BP 120/66
--- NOTE | 2024-01-01 16:13 | W.PN.ID1 ---
Date of Service
Date of Service: January 01, 2024
Today's Communication
D/C abx.
Assessment / Plan
Neutropenia (ANC~600)
Episode of fever
- none further
Anemia
Non-small cell lung cancer (stage IV)
- Newly on avastin
COPD
HTN
Dyslipidemia
Crohn's disease
Seizure disorder
Anxiety
Recommendations:
Blood cultures no growth
No further fevers
Will D/C abx.
Chief Complaint
-: Other (Neutropenia)
Subjective / Review of Systems
Review of Systems: No Fever and No Chills
Vital Signs / Physical Exam
Vital Signs
Vital Signs
Temp Pulse Resp BP Pulse Ox
98.2 F 97 16 122/72 98
01/01/24 11:45 01/01/24 11:45 01/01/24 11:45 01/01/24 11:45 01/01/24 12:41
Physical Exam
Constitutional: Comfortable, Chronically Ill and Non-toxic
Eyes: No Conjunctival Hemorrhage and Sclera Anicteric
Cardiovascular: S1/S2; Negative S3/S4
Pulmonary: Coarse and Non Labored; Negative Wheezes or Rales
Gastrointestinal: Soft, Non Tender and Non Distended
Skin: Warm and Dry; Negative Rash or Jaundice
Neurological: Awake and Alert
Psychological: Calm
Objective Data
Lab Data
Lab Results
01/01/24 05:51
01/01/24 05:51
ESR 41 mm/hour (0-20) H 12/28/23 05:46
Estimated Creat Clear 68 ml/min 01/01/24 05:51
Total Bilirubin 0.5 mg/dl (0.2-1.3) 01/01/24 05:51
AST 34 U/L (14-36) 01/01/24 05:51
ALT 32 U/L (0-35) 01/01/24 05:51
Alkaline Phosphatase 128 U/L (38-126) H 01/01/24 05:51
C-Reactive Protein 72.00 mg/L (0.0-10.00) H 12/28/23 05:46
Most recent labs reviewed.
Micro Results:
12/30/23 09:31 Respiratory Culture - Final
Sputum Usual Respiratory Roxana
Gram Stain - Final
12/30/23 08:18 Blood Culture - Preliminary
Blood/Venous No Growth in 48 hours- Final report to follow
01/01/24 06:31 Nasal Screen MRSA (PCR) - Final
Nose MRSA not detected - performed by PCR methodology.
12/30/23 08:02 Blood Culture - Preliminary
Blood/Venous No Growth in 48 hours- Final report to follow
12/27/23 17:54 Blood Culture - Preliminary
Blood/Venous No Growth in 4 days- Final report to follow
12/27/23 17:54 Blood Culture - Preliminary
Blood/Venous No Growth in 4 days- Final report to follow
12/30/23 21:02 Nasal Screen MRSA (PCR) - Final
Nose
12/27/23 15:13 Salmonella/Shigella Culture - Final
Feces/Stool No Salmonella, Shigella, Aeromonas or Plesiomonas species
isolated.
Campylobacter Culture - Final
No Campylobacter species isolated.
Shiga Toxin Test - Final
No E. coli Shiga Toxin 1 or 2 detected.
Stool Leukocytes - Final
12/27/23 15:13 Cryptosporidium/Giardia - Final
Feces/Stool Negative for Cryptosporidium and/or Giardia Lamblia
antigens.
C. difficile GDH Antigen & Toxins - Final
Negative for toxigenic C.difficile
- Final
Negative for Norovirus GI and GII.
Care Review
Plan reviewed with: Physician ([facility], Hospitalist)
[2024-01-01] MEDS: CRESTOR 5 MG PO (17:09)
[2024-01-01] MEDS: LUMINAL 64.7999999999999972 MG PO (17:10)
[2024-01-01] MEDS: LOVENOX 40 MG SC (17:28)
[2024-01-01] MEDS: ZOFRAN 4 MG IV (17:28)
[2024-01-01 20:07] VITALS: BP 146/74
[2024-01-01] MEDS: TOPROL XL 25 MG PO (23:12)
[2024-01-01] MEDS: LUVOX 100 MG PO (23:13)
[2024-01-01 23:42] VITALS: BP 109/51
[2024-01-02 03:07] VITALS: BP 120/56
--- NOTE | 2024-01-02 04:54 | DOWNTIME ---
There was a [employer] Client Radiology Orderly Downtime on 01/02/2024 from 0100 to 01/02/2024 at 0439. Downtime documentation of patient's care, including medication administrations, has been reconciled in the electronic record per guidelines. Refer to the
patient's paper chart under the miscellaneous tab to see printed paper medication records and downtime forms.
[2024-01-02] MEDS: IMODIUM 4 MG PO ×3 (05:43→15:14)
[2024-01-02 06:00] VITALS: BMI 21.3
[2024-01-02 06:48] LABS: Hematocrit 25.1 % (37.0-47.0); Hemoglobin 7.7 g/dL (12.0-16.0); Mean Corp Hgb Conc. 30.7 g/dL (33.0-37.0); Mean Corpuscular Hgb 23.9 pg (27.0-31.0); Nucleated Red Blood Cells % 0 %; Platelet Count 90 10^3/uL (130-400); Red Blood Cell Count 3.22 10^6/uL (4.20-5.40); Red Cell Dist. Width 16.2 % (11.5-14.5)
[2024-01-02 06:51] LABS: White Blood Cell Count 1.6 10^3/uL (4.8-10.8)
--- NOTE | 2024-01-02 06:58 | W.PN.ONC2 ---
Today's Communication / Plan
-
above. Clinically improving. D/C Planning.
F/U with oncology. We would be happy to take over her care locally in coordination with Dr. Lugo.
Impression
Impression
Recurrent, KRAS non-small cell lung cancer on Alimta/Avastin(Dr. Lugo [facility])
Pancytopenia secondary to antineoplastic therapy
Electrolyte imbalance, hyponatremia, hypokalemia, hypomagnesemia
Mild pulmonary interstitial edema and Scattered bilateral areas of parenchymal consolidation
Chronic loculated right pleural effusion with Pleurx
Loose stool
Plan
Plan
Clinically improved.
WBC starting to stabilize.
Afebrile, ANC = 600 yesterday with elevated monocytes suggest pending WBC recovery
Wean O2 as able, weekly Pleurex drainage. Steroid taper to finish 01/03/24 for treatment of pneumonitis
She hopes to establish care w/ pulm locally
She also requests to establish care w/ me at [facility] for further treatment; will ask our nursing scheduler to contact her with an appt in next 1-2 weeks
d/c planning
Subjective/Objective
Chief Complaint
[facility] Heme Onc
Subjective
Diarrhea better. No further fevers. Concerns about wait gain and fluid retention.
Vital Signs:
Vital Signs
Temp Pulse Resp BP Pulse Ox
98.7 F 90 18 120/56 98
01/02/24 03:07 01/02/24 03:07 01/02/24 03:07 01/02/24 03:07 01/02/24 03:07
Lab Results:
Laboratory Data
WBC 1.6 10^3/uL (4.8-10.8) L* 01/02/24 06:04
Hgb 7.7 g/dL (12.0-16.0) L 01/02/24 06:04
Plt Count 90 10^3/uL (130-400) L 01/02/24 06:04
eGFR > 60.00 01/01/24 05:51
Physical Exam
HEENT: No Jaundice
Cardiology: S1 and S2
Pulmonary: Clear
GI: Soft
Extremities: No C/C/E
[2024-01-02 07:00] VITALS: BP 143/71
[2024-01-02 07:08] LABS: Blood Urea Nitrogen 11 mg/dl (7-17); Calcium 8.2 mg/dl (8.4-10.2); Carbon Dioxide 35 mmol/L (22-30); Chloride 96 mmol/L (98-107); Estimated Creatinine Clearance 68 ml/min; Glucose 91 mg/dl (70-99); Magnesium 1.2 mg/dl (1.6-2.3); Potassium 3.4 mmol/L (3.5-5.1); Sodium 131 mmol/L (135-145); eGFR > 60.00
[2024-01-02] MEDS: SPIRIVA RESPIMAT 2.5 MCG 2 PUFF INH (07:53)
[2024-01-02] MEDS: SYMBICORT 160/4.5 MCG INHALER 2 PUFF INH (07:53)
[2024-01-02 07:59] LABS: Absolute Neutrophils -Man Diff 0.7 10^3/uL (1.4-6.5); Band Neutrophils 0 % (0-3); Eosinophils 1 % (0-6); Lymphocytes 40 % (20-51); Monocytes 13 % (2-9); Normal RBC Morphology Yes; Platelets Checked Yes; Segmented Neutrophils 46 % (42-75); Total Cells Counted 100
[2024-01-02] MEDS: ZESTRIL 2.5 MG PO (08:26)
[2024-01-02] MEDS: CLARITIN 10 MG PO (08:26)
[2024-01-02] MEDS: LUVOX 50 MG PO (08:26)
[2024-01-02] MEDS: DELTASONE 10 MG PO (08:26)
[2024-01-02] MEDS: SODIUM CHLORIDE 1 GRAM PO (08:26)
[2024-01-02] MEDS: PROTONIX 40 MG PO (08:26)
[2024-01-02] MEDS: ATIVAN 0.5 MG PO (08:29)
[2024-01-02] MEDS: RESTASIS 0.05% OPHTHALMIC EMULSION 1 DROPS BOTH EYES (08:29)
[2024-01-02] MEDS: VISBIOME 1 CAP PO (08:29)
[2024-01-02] MEDS: VITAMIN C 500 MG PO (08:29)
[2024-01-02] MEDS: FOLVITE 1 MG PO (08:29)
[2024-01-02] MEDS: TOPROL XL 50 MG PO (08:29)
[2024-01-02] MEDS: ZOFRAN 4 MG IV (08:32)
--- NOTE | 2024-01-02 10:33 | W.DCSUMMARY ---
Discharge Summary
Discharge Data
Date of Admission: 12/30/23
Date of Discharge: 01/02/24
-
Pending Results: No
Hospital Course
73-year-old female with a known history of recurrent KRAS non-small cell lung cancer with recent chemotherapy regime changed to Alimta and/Avastin presented with multiple electrolyte abnormalities including significant hyponatremia hypokalemia and
hypomagnesemia that required repletion this is also manifested by significant increase in ostomy output. She has a history of chronic loculated right pleural effusion with Pleurx catheter in place that is drained weekly by home care nursing.
She was admitted to the medical service and was seen by subspecialty services including the GI service, the oncology service, the infectious disease service,
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
and Cimzia presently on no current therapy
CT imaging on admission showed oral contrast to the ostomy bag with moderate loculated right pleural effusion in the setting of a right-sided Pleurx catheter chest tube continue to showed spiculated groundglass and pleural-based solid left lower
lobe pulmonary nodules
It was felt that the patient's pancytopenia and ongoing stool losses through ostomy may have been in relation to her ongoing and recent chemotherapy she had a short episode of a febrile course lasting only 1 day and there was a thought that may be
she was developing some febrile neutropenia but this was self-limited and has been since under recovery mode. She required frequent repletion's of magnesium and potassium and hyponatremia nonresolution. She was seen by the infectious disease
service but no antibiotics were ordered and there is no need for marrow stimulation.
She remains weak with poor appetite and she will require continued VNA follow-up and ongoing Pleurx catheter drainage/
She is interested in getting outpatient follow-up locally with pulmonary and [place] [facility] and Dr. Kinney from [place] met with her today and they discussed a 1 to 2-week follow-up./Medically stable for discharge with VNA follow-up with
continued Pleurx catheter drainage and will need also follow-up with BNP in 1 to 2-week
Discharge Plan
-
Patient Disposition: Home with Home Care
Discharge Diagnosis/Procedures: Abdominal pain, diarrhea could be secondary to possible gastritis
Dehydration
Hypokalemia
Hypomagnesemia
Diet: As tolerated
Activity: As tolerated
Driving Restrictions: As prior to admission
Bathing Restrictions: None
Activity Restrictions/Additional Instructions:
Please follow-up with your physician at [facility]
Referrals:
Marilyn Cortez MD [Family Provider] - in less than 1 week
Prescriptions:
New
Metamucil Fiber Singles 3.4 gram Powder In Packet
1 packet PO DAILYPRN PRN (Reason: diarrhea) Qty: 30 0RF
Continued
lisinopril 5 MG tablet
2.5 mg PO DAILY
cyanocobalamin (vitamin B-12) 1,000 MCG tablet
1,000 mcg IM MONTHLY
phenobarbital 64.8 MG tablet
64.8 mg PO QPM
Patient Comments:
12/27/2023: last filled 11/10/23, 90 tabs for 90 days from [facility]
fluvoxamine 50 MG tablet
100 mg PO HS
cyclosporine [Restasis] 10 DROPS dropperette
1 drp BOTH EYES BID
rosuvastatin [Crestor] 5 mg Tablet
5 mg PO QPM
tiotropium bromide [Spiriva with HandiHaler] 18 mcg Capsule, W/Inhalation Device
1 cap INHALATION R DAILY
metoprolol succinate [Toprol XL] 50 mg Tablet Extended Release 24 Hr
50 mg PO DAILY
loperamide 2 mg Tablet
2 mg PO Q4HPRN PRN (Reason: diarrhea)
sodium chloride 1,000 mg tablet,soluble
1,000 mg PO BID Qty: 60 0RF
ascorbic acid (vitamin C) [Vitamin C] 500 mg Tablet
500 mg PO DAILY
loratadine [Claritin] 10 mg Tablet
10 mg PO DAILY
ondansetron HCl 8 mg Tablet
8 mg PO [id number] PRN (Reason: nausea )
fluvoxamine 50 mg Tablet
50 mg PO DAILY
levalbuterol tartrate [Xopenex HFA] 45 mcg/actuation Hfa Aerosol Inhaler
1 puff INHALATION R Q6HPRN PRN (Reason: sob)
fluticasone furoate-vilanterol [Breo Ellipta] 200-25 mcg/dose Blister With Device
1 inh INHALATION R DAILY
metoprolol succinate 25 mg Tablet Extended Release 24 Hr
25 mg PO HS
lorazepam [Ativan] 1 mg tablet
0.5 mg PO BID
Patient Comments:
12/27/2023: last filled 12/05/23, 60 tabs for 30 days from [facility]
lorazepam [Ativan] 1 mg tablet
0.5 mg PO DAILY PRN (Reason: anxiety)
Patient Comments:
12/27/2023: last filled 12/05/23, 60 tabs for 30 days from [facility]
prednisone 10 mg tablet
10 mg PO .TAPER
Patient Comments:
12/27/2023: 20mg until sunday then decreases to 10mg
Avastin
1 dose IV Q3W
Discontinued
Bactrim
1 tab PO [id number]
Discharge Orders:
Discharge Patient (As Directed); Ordered 01/02/24
Ordered By: Teo Yen
Discharge Date and Time
Print Language: TELUGU
--- NOTE | 2024-01-02 10:54 | W.DS.TRANS ---
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
-
Discharge Instructions:
Discharge Diagnosis/Procedures Abdominal pain, diarrhea could be secondary to
possible gastritis
Dehydration
Hypokalemia
Hypomagnesemia
Diet As tolerated
Activity As tolerated
Driving Restrictions As prior to admission
Bathing Restrictions None
Instructions:
Stand-Alone Forms:
Changes to Home Medications: No
Discharge Medications:
DC Medications w/original date entered in [facility]
lisinopril 5 mg tablet 2.5 mg PO DAILY Blood Pressure 03/22/15
cyanocobalamin (vitamin B-12) 1,000 mcg tablet 1,000 mcg IM MONTHLY Supplement 03/12/19
cyclosporine 0.05 % eye drops in a dropperette (Restasis) 1 drp BOTH EYES BID dry eyes 03/12/19
fluvoxamine 50 mg tablet 100 mg PO HS Mental Health/Anxiety 03/12/19
phenobarbital 64.8 mg tablet 64.8 mg PO QPM Neurological Condition 03/12/19
rosuvastatin 5 mg tablet (Crestor) 5 mg PO QPM High Cholesterol 09/26/22
tiotropium bromide 18 mcg capsule with inhalation device (Spiriva with HandiHaler) 1 cap inhalation R DAILY Lung/Breathing Issues 09/26/22
loperamide 2 mg tablet 2 mg PO Q4HPRN PRN diarrhea 09/17/23
metoprolol succinate 50 mg tablet,extended release 24 hr (Toprol XL) 50 mg PO DAILY Heart Disease/Condition 09/17/23
sodium chloride 1,000 mg soluble tablet 1,000 mg PO BID Supplement #60 tabs 09/20/23
ascorbic acid (vitamin C) 500 mg tablet (Vitamin C) 500 mg PO DAILY Supplement 11/09/23
loratadine 10 mg tablet (Claritin) 10 mg PO DAILY Allergies 11/09/23
fluticasone furoate 200 mcg-vilanterol 25 mcg/dose inhalation powder (Breo Ellipta) 1 inh inhalation R DAILY Lung/Breathing Issues 11/22/23
fluvoxamine 50 mg tablet 50 mg PO DAILY Mental Health/Anxiety 11/22/23
levalbuterol tartrate 45 mcg/actuation aerosol inhaler (Xopenex HFA) 1 puff inhalation R Q6HPRN PRN sob 11/22/23
ondansetron HCl 8 mg tablet 8 mg PO [id number] PRN nausea 11/22/23
metoprolol succinate 25 mg tablet,extended release 24 hr 25 mg PO HS Heart Disease/Condition 12/25/23
lorazepam 1 mg tablet (Ativan) 0.5 mg PO BID anxiety 12/27/23
lorazepam 1 mg tablet (Ativan) 0.5 mg PO DAILY PRN anxiety 12/27/23
prednisone 10 mg tablet 10 mg PO .TAPER Anti-Inflammatory 12/27/23
Avastin 1 dose IV Q3W Cancer 12/28/23
psyllium husk (aspartame) 3.4 gram oral powder packet (Metamucil Fiber Singles) 1 packet PO DAILYPRN PRN diarrhea #30 ea 01/02/24
Home Medication Changes
psyllium husk (aspartame) 3.4 gram oral powder packet (Metamucil Fiber Singles) 1 packet PO DAILYPRN PRN diarrhea #30 ea 01/02/24
Pending Results: No
Total time spent discharging patient (in min): 45
[2024-01-02 11:00] VITALS: BP 118/69
--- NOTE | 2024-01-02 11:00 | CM ---
Addendum entered by Cassandra Spears 01/02/24 12:28:
Pt prefers to see Palliative Care at
Referral placed in Care Port
Addendum entered by Cassandra Spears 01/02/24 11:19:
Received call robbie Pemberton at [facility]
Requested copy of d/c summary and face sheet be faxed to [phone]
CM will fax requested documents
Original Note:
Case management following d/c planning
Pt for d/c today
Accepted for Home care by [facility] [place]
Saw pt at bedside - updated of acceptance. Family/friends at bedside
Concerned - pt lives alone, asking about home health aids/caretakers
Given list of Caretakers - they will make calls to arrange caretakers
Discussed IMM
Pt requesting to see Palliative Care - Dr Yen made aware
[facility] does have Palliative care - per rep, added to referral in Care Port
Pt reports she does have ride when d/c'ed
Plan - home with [facility]
Fax- [phone]
--- NOTE | 2024-01-02 14:14 | W.PN.ID1 ---
Date of Service
Date of Service: January 02, 2024
Today's Communication
Continue off abx.
Assessment / Plan
Neutropenia (ANC~ 700)
Episode of fever
- none after 12/30/23
Anemia
Non-small cell lung cancer (stage IV)
- Newly on avastin
COPD
HTN
Dyslipidemia
Crohn's disease
Seizure disorder
Anxiety
Recommendations:
Blood cultures no growth
No further fevers
Continue off abx. To follow-up with HemeOnc after D/C
Chief Complaint
-: Other (Neutropenia)
Subjective / Review of Systems
Notes ongoing fatigue.
Review of Systems: No Fever and No Chills
Vital Signs / Physical Exam
Vital Signs
Vital Signs
Temp Pulse Resp BP Pulse Ox
97.0 F 97 16 142/74 94
01/02/24 07:00 01/02/24 08:29 01/02/24 07:59 01/02/24 08:29 01/02/24 07:59
Physical Exam
Constitutional: No Acute Distress, Comfortable, Chronically Ill and Non-toxic
Eyes: Sclera Anicteric
Pulmonary: Non Labored
Gastrointestinal: Non Distended
Neurological: Awake and Alert
Psychological: Calm
Objective Data
Lab Data
Lab Results
01/02/24 06:04
01/02/24 06:04
ESR 41 mm/hour (0-20) H 12/28/23 05:46
Estimated Creat Clear 68 ml/min 01/02/24 06:04
Total Bilirubin 0.5 mg/dl (0.2-1.3) 01/01/24 05:51
AST 34 U/L (14-36) 01/01/24 05:51
ALT 32 U/L (0-35) 01/01/24 05:51
Alkaline Phosphatase 128 U/L (38-126) H 01/01/24 05:51
C-Reactive Protein 72.00 mg/L (0.0-10.00) H 12/28/23 05:46
Most recent labs reviewed.
Micro Results:
12/30/23 08:18 Blood Culture - Preliminary
Blood/Venous No Growth in 72 hours- Final report to follow
12/30/23 08:02 Blood Culture - Preliminary
Blood/Venous No Growth in 72 hours- Final report to follow
12/27/23 17:54 Blood Culture - Final
Blood/Venous No Growth - Final Report
12/27/23 17:54 Blood Culture - Final
Blood/Venous No Growth - Final Report
12/30/23 09:31 Respiratory Culture - Final
Sputum Usual Respiratory Roxana
Gram Stain - Final
01/01/24 06:31 Nasal Screen MRSA (PCR) - Final
Nose MRSA not detected - performed by PCR methodology.
12/30/23 21:02 Nasal Screen MRSA (PCR) - Final
Nose
12/27/23 15:13 Salmonella/Shigella Culture - Final
Feces/Stool No Salmonella, Shigella, Aeromonas or Plesiomonas species
isolated.
Campylobacter Culture - Final
No Campylobacter species isolated.
Shiga Toxin Test - Final
No E. coli Shiga Toxin 1 or 2 detected.
Stool Leukocytes - Final
12/27/23 15:13 Cryptosporidium/Giardia - Final
Feces/Stool Negative for Cryptosporidium and/or Giardia Lamblia
antigens.
C. difficile GDH Antigen & Toxins - Final
Negative for toxigenic C.difficile
- Final
Negative for Norovirus GI and GII.
[2024-01-02 15:00] VITALS: BP 122/78
[2024-01-02] MEDS: LUMINAL 64.7999999999999972 MG PO (17:16)
[2024-01-02] MEDS: CRESTOR 5 MG PO (17:16)
[2024-01-02] MEDS: LOVENOX 40 MG SC (17:17)
== END 2024-01-02 18:21 | disposition home health service (06) | DRG 393 ==
LOC: 3 WEST ACU 11:12
PROVIDERS: Emergency Medicine; Nurse Practitioner Adult Health; Nurse Practitioner Gerontology; Physician Assistant; ADMITTING PHYSICIAN Internal Medicine; ATTENDING PHYSICIAN Internal Medicine; CONSULT PHYSICIAN Internal Medicine Gastroenterology; CONSULT PHYSICIAN Internal Medicine Hematology & Oncology; EMERGENCY PHYSICIAN Student in an Organized Health Care Education/Training Program; FAMILY PHYSICIAN Internal Medicine; OTHER PHYSICIAN Internal Medicine Infectious Disease
DX: K52.1 Toxic gastroenteritis and colitis (principal); D61.810 Antineoplastic chemotherapy induced pancytopenia; J18.9 Pneumonia, unspecified organism; K50.90 Crohn's disease, unspecified, without complications; C34.90 Malignant neoplasm of unspecified part of unspecified bronchus or lung; J91.0 Malignant pleural effusion; J44.0 Chronic obstructive pulmonary disease with (acute) lower respiratory infection; E87.1 Hypo-osmolality and hyponatremia; J96.11 Chronic respiratory failure with hypoxia; E83.42 Hypomagnesemia; J98.4 Other disorders of lung; Z87.891 Personal history of nicotine dependence; F41.9 Anxiety disorder, unspecified; E87.6 Hypokalemia; E78.00 Pure hypercholesterolemia, unspecified; D70.9 Neutropenia, unspecified; R50.81 Fever presenting with conditions classified elsewhere; T45.1X5A Adverse effect of antineoplastic and immunosuppressive drugs, initial encounter; I10 Essential (primary) hypertension; D64.81 Anemia due to antineoplastic chemotherapy
CPT/HCPCS: 71045; 71046; 71275; 74177; 80048; 80053; 81003; 81015; 83690; 83735; 83993; 84100; 84145; 85025; 85652; 86140; 87040; 87045; 87046; 87070; 87205; 87324; 87328; 87329; 87427; 87449; 87641; 87798; 89055; 93005; 94640; 96361; 96365; 96375; 99285; J1447; Q9967

== ENCOUNTER 2024-01-15 08:28 | Outpatient (RCR) | payer MEDICARE, OTHER, SELFPAY ==
[2023-12-18 08:58] VITALS: BP 135/85
[2023-12-18 09:27] LABS: Total Cholesterol 196 mg/dl (50-199); Triglyceride 183 mg/dl (10-149); Very Low Density Lipoprotein 36 mg/dl (0-30)
[2023-12-18] MEDS: MAGNESIUM SULFATE 108 GRAMS IV (09:49)
[2023-12-18 09:57] LABS: HDL Cholesterol 136 mg/dl; LDL Cholesterol, Calculated 24 mg/dl
[2023-12-21 09:16] VITALS: BP 146/72
[2023-12-21 09:43] LABS: Carbon Dioxide 22 mmol/L (22-30); Chloride 106 mmol/L (98-107); Potassium 3.7 mmol/L (3.5-5.1); Sodium 136 mmol/L (135-145)
[2023-12-21 09:45] LABS: Magnesium 0.8 mg/dl (1.6-2.3)
[2023-12-21] MEDS: MAGNESIUM SULFATE 108 GRAMS IV (10:01)
[2023-12-21] MEDS: IMODIUM 2 MG PO ×2 (10:40)
--- NOTE | 2023-12-21 10:46 | W.PN.UPDATE ---
Addendum entered and electronically signed by NGUYEN Ferrera 12/21/23 11:58:
Further review of chart revealed history of lung ca and under the care of renal. Hypomagnesmia and hyponatremia believed to be related to SIADH after workup by DR. Baldwin. Previous mag oral was suggested but did result in diarrhea. Also taking salt
tabs. Returning sunday for repeat labs. Knows to call for any new or worsening symptoms if develops.
Original Note:
Update Note
- Progress Note Update
12/21/23 10:46
Patient seen at bedside at request of OID RN Deyanira Silva. Here today for magnesium 4gm IV for magnesium of 0.8. Reports feeling a little woozy but otherwise ok. Worried about magnesium level. Reported some loose stools at home and takes
imodium to control. Does not have imodium with her so requesting requesting one. Order placed for imodium 2mg take 2 tabs now and q4 prn. Advised to try epsom salt foot soaks as good way to absorb magnesium is through skin. Also discussed
supplements (but stopped due to diarrhea), as well as other foods that are high in magnesium. Unable to take magnesium bath as has a pleurx cath in place. Low drainage about 50cc per day so thinks will have removed soon. Still advised not to take
bath without approval from physician as even if removed still requires healing. Will try epsom salt bath and may consider magnesium spray to try as well. In good spirits. Thanked me for the information and will continue to be monitored.
[2023-12-21] MEDS: MAGNESIUM SULFATE 102 GRAMS IV (14:12)
[2023-12-21 15:25] VITALS: BP 138/70
--- NOTE | 2023-12-21 16:15 | PTCARENOTE ---
Critical magnesium 0.[address] Cortez, additional 1 gram magnesium ordered via verbal order. Patient concerned with frequent stools, ENGINEERING WRITER Roz Menchaca in to see patient. Immodium 4mg PO ordered and given to patient.
[2023-12-25 09:29] VITALS: BP 149/91
[2023-12-25 09:38] LABS: Magnesium 1.1 mg/dl (1.6-2.3)
[2023-12-25] MEDS: MAGNESIUM SULFATE 106 GRAMS IV (09:56)
[2024-01-04 09:40] VITALS: BP 109/70
[2024-01-04 09:54] LABS: Carbon Dioxide 29 mmol/L (22-30); Chloride 96 mmol/L (98-107); Potassium 3.7 mmol/L (3.5-5.1); Sodium 133 mmol/L (135-145)
[2024-01-04] MEDS: MAGNESIUM SULFATE 108 GRAMS IV (10:05)
[2024-01-08 08:44] VITALS: BP 129/86
[2024-01-08 09:20] LABS: % Basophils 0.1 % (0-2); % Eosinophils 0.1 % (0-6); % Immature Granulocytes 0.5 % (0-0.5); % Lymphocytes 6.5 % (20.5-51.1); % Monocytes 8.1 % (1.7-9.3); % Neutrophils 84.7 % (42.2-75.2); Absolute Lymphocytes 0.6 10^3/uL (1.2-3.4); Absolute Monocytes 0.7 10^3/uL (0.1-0.6); Absolute Neutrophils 7.3 10^3/uL (1.4-6.5); Hematocrit 30.3 % (37.0-47.0); Hemoglobin 9.5 g/dL (12.0-16.0); Mean Corp Hgb Conc. 31.4 g/dL (33.0-37.0); Mean Corpuscular Hgb 24.4 pg (27.0-31.0); Mean Corpuscular Volume 77.9 fL (81.0-99.0); Mean Platelet Volume 10.1 fL (7.4-10.4); Nucleated Red Blood Cells % 0 %; Platelet Count 339 10^3/uL (130-400); Red Blood Cell Count 3.89 10^6/uL (4.20-5.40); Red Cell Dist. Width 18.1 % (11.5-14.5); White Blood Cell Count 8.6 10^3/uL (4.8-10.8)
[2024-01-08 09:33] LABS: ALT (SGPT) 25 U/L (0-35); AST (SGOT) 32 U/L (14-36); Albumin 3.2 g/dl (3.5-5.0); Alkaline Phosphatase 102 U/L (38-126); Blood Urea Nitrogen 15 mg/dl (7-17); Calcium 8.8 mg/dl (8.4-10.2); Carbon Dioxide 28 mmol/L (22-30); Chloride 100 mmol/L (98-107); Glucose 115 mg/dl (70-99); Potassium 4.3 mmol/L (3.5-5.1); Sodium 134 mmol/L (135-145); Total Bilirubin 0.2 mg/dl (0.2-1.3); Total Protein 5.7 g/dl (6.3-8.2); eGFR > 60.00
[2024-01-08 09:49] LABS: Magnesium 0.9 mg/dl (1.6-2.3)
[2024-01-08] MEDS: MAGNESIUM SULFATE 108 GRAMS IV (10:02)
[2024-01-08 14:51] VITALS: BP 138/73
[2024-01-11 09:04] VITALS: BP 144/75
[2024-01-11 09:28] LABS: % Basophils 0.1 % (0-2); % Eosinophils 0.1 % (0-6); % Immature Granulocytes 0.5 % (0-0.5); % Monocytes 6.9 % (1.7-9.3); % Neutrophils 86.4 % (42.2-75.2); Absolute Immature Granulocytes 0.1 10^3/uL (0-0.05); Absolute Lymphocytes 0.6 10^3/uL (1.2-3.4); Absolute Monocytes 0.7 10^3/uL (0.1-0.6); Absolute Neutrophils 8.1 10^3/uL (1.4-6.5); Hematocrit 33.9 % (37.0-47.0); Mean Corp Hgb Conc. 29.5 g/dL (33.0-37.0); Mean Corpuscular Hgb 23.4 pg (27.0-31.0); Mean Corpuscular Volume 79.4 fL (81.0-99.0); Mean Platelet Volume 9.1 fL (7.4-10.4); Nucleated Red Blood Cells % 0 %; Platelet Count 411 10^3/uL (130-400); Red Blood Cell Count 4.27 10^6/uL (4.20-5.40); Red Cell Dist. Width 17.3 % (11.5-14.5); White Blood Cell Count 9.4 10^3/uL (4.8-10.8)
[2024-01-11 09:43] LABS: ALT (SGPT) 27 U/L (0-35); AST (SGOT) 36 U/L (14-36); Albumin 3.4 g/dl (3.5-5.0); Alkaline Phosphatase 96 U/L (38-126); Blood Urea Nitrogen 13 mg/dl (7-17); Calcium 9.1 mg/dl (8.4-10.2); Carbon Dioxide 31 mmol/L (22-30); Chloride 99 mmol/L (98-107); Glucose 130 mg/dl (70-99); Sodium 134 mmol/L (135-145); Total Bilirubin 0.2 mg/dl (0.2-1.3); Total Protein 6.2 g/dl (6.3-8.2); eGFR > 60.00
[2024-01-11] MEDS: MAGNESIUM SULFATE 108 GRAMS IV (10:10)
[2024-01-11 10:24] LABS: Iron 41 ug/dl (37-170)
[2024-01-11 10:35] LABS: Percent Saturation 11 % (20-50); Total Iron Binding Capacity 355 ug/dl (265-497)
[2024-01-11 11:13] LABS: Ferritin 36.8 ng/ml (11.1-264.0)
[2024-01-15 08:44] VITALS: BP 107/74
[2024-01-15 09:01] LABS: % Basophils 0.2 % (0-2); % Eosinophils 0.2 % (0-6); % Immature Granulocytes 0.3 % (0-0.5); % Lymphocytes 9.1 % (20.5-51.1); % Neutrophils 81.2 % (42.2-75.2); Absolute Lymphocytes 0.9 10^3/uL (1.2-3.4); Absolute Monocytes 0.9 10^3/uL (0.1-0.6); Absolute Neutrophils 8.1 10^3/uL (1.4-6.5); Hematocrit 34.2 % (37.0-47.0); Hemoglobin 10.4 g/dL (12.0-16.0); Mean Corp Hgb Conc. 30.4 g/dL (33.0-37.0); Mean Corpuscular Hgb 23.6 pg (27.0-31.0); Mean Corpuscular Volume 77.7 fL (81.0-99.0); Mean Platelet Volume 8.8 fL (7.4-10.4); Platelet Count 396 10^3/uL (130-400); Red Cell Dist. Width 17.1 % (11.5-14.5)
[2024-01-15] MEDS: INJECTAFER 265 MG IV (09:03)
[2024-01-15 09:42] LABS: ALT (SGPT) 33 U/L (0-35); AST (SGOT) 45 U/L (14-36); Albumin 3.6 g/dl (3.5-5.0); Alkaline Phosphatase 98 U/L (38-126); Blood Urea Nitrogen 15 mg/dl (7-17); Calcium 9.5 mg/dl (8.4-10.2); Carbon Dioxide 24 mmol/L (22-30); Chloride 100 mmol/L (98-107); Glucose 118 mg/dl (70-99); Magnesium 1.1 mg/dl (1.6-2.3); Potassium 4.2 mmol/L (3.5-5.1); Sodium 136 mmol/L (135-145); Total Bilirubin 0.3 mg/dl (0.2-1.3); Total Protein 6.6 g/dl (6.3-8.2); eGFR > 60.00
[2024-01-15 10:01] LABS: Vitamin D, 25-OH*** 40.2 ng/mL (30-80)
[2024-01-15] MEDS: MAGNESIUM SULFATE 108 GRAMS IV (10:25)
== END 2024-01-15 23:59 | disposition home or self-care (01) ==
LOC: OID 08:28
PROVIDERS: ATTENDING PHYSICIAN Internal Medicine Hematology & Oncology; OTHER PHYSICIAN Internal Medicine
DX: E83.42 Hypomagnesemia (principal); J96.20 Acute and chronic respiratory failure, unspecified whether with hypoxia or hypercapnia (principal); C34.91 Malignant neoplasm of unspecified part of right bronchus or lung; J18.8 Other pneumonia, unspecified organism; J96.21 Acute and chronic respiratory failure with hypoxia; E87.6 Hypokalemia; D64.81 Anemia due to antineoplastic chemotherapy; J44.9 Chronic obstructive pulmonary disease, unspecified; E87.1 Hypo-osmolality and hyponatremia; G40.409 Other generalized epilepsy and epileptic syndromes, not intractable, without status epilepticus
CPT/HCPCS: 36415; 80051; 80053; 80061; 82306; 82728; 83540; 83550; 83735; 85025; 96365; 96366; 96367; J1439

== ENCOUNTER 2024-01-21 22:07 | Inpatient (IN) | payer MEDICARE, OTHER, SELFPAY ==
[2024-01-21 17:20] VITALS: BMI 22.2
--- NOTE | 2024-01-21 17:26 | ED.GENMED ---
History of Present Illness
General
Chief Complaint: Dehydration Symptoms
Source: patient
Exam Limitations: none
Time Seen by Provider: 01/21/24 17:20
Travel History
Have you had any contact with someone who has COVID-19?: No
Do you have any symptoms of coronavirus? Fever > 100 degrees, chills, cough, shortness of breath, sore throat, loss of taste or smell, muscle aches, or headache?: No
History of Present Illness
History of Present Illness:
See MDM
Past History
Past History
ED Past Medical History: Cancer, COPD, HTN, Seizures and Other (Crohn's disease, anxiety)
ED Past Surgical History: Bowel resection (For Crohn's disease with a subsequent colostomy), Cholecystectomy and Other (Partial lung lobectomy)
Social History
Tobacco: Former smoker
Alcohol: None
Drug: None
Personal:
Living: alone
Employment: Employed
Family History
Family History: Other (No significant)
Phy Exam
Physical Exam
Physical Exam:
See MDM
Course
Orders/Labs/Results
Orders:
Orders
01/21/24 17:26
0.9% Sodium Chloride 1000 ml [Nss] 1,000 ml IV BOLUS
01/21/24 17:42
Complete Blood Count/With Diff Urgent
Comprehensive Metabolic Panel Urgent
Magnesium Urgent
UA Reflex to Culture [Urinalysis Reflex To Culture] Urgent
Date Specimen was Collected: 01/21/24
Time Specimen was Collected: 17:31
Urine Microscopic Reflex Cult Urgent
Urine Culture Urgent
MABLE Source: U
Specimen Description:
Date Specimen was Collected: 01/21/24
Time Specimen was Collected: 17:31
01/21/24 18:14
Ondansetron Injectable [Zofran] 4 mg .ROUTE .[facility]
01/21/24 18:15
Ondansetron Injectable [Zofran] 4 mg IV NOW STA
01/21/24 19:47
LevoFLOXacin 250 MG/50 ML [Levaquin] 250 mg in 50 ml IV NOW
01/21/24 19:48
Promethazine [Phenergan] 12.5 mg 0.9% Sodium Chloride 50 ml [Nss] 50 ml IV NOW
01/21/24 19:49
Magnesium Sulfate 4 Gram/100Ml [Magnesium Sulfate] 4 gram in 100 ml IV NOW
01/21/24 20:08
Pt Eval And Treat Routine
Activity Level: Ambulate
01/21/24 20:33
EKG [Electrocardiogram (*1)] Urgent
Reason for Study: Tachycardia
Abnormal Lab Results
01/21/24
17:42
WBC 14.1 H 10^3/uL
(4.8-10.8)
Hgb 10.7 L g/dL
(12.0-16.0)
Hct 36.0 L %
(37.0-47.0)
MCV 78.6 L fL
(81.0-99.0)
MCH 23.4 L pg
(27.0-31.0)
MCHC 29.7 L g/dL
(33.0-37.0)
RDW 17.9 H %
(11.5-14.5)
Abs Immat Gran (auto) 0.1 H 10^3/uL
(0-0.05)
Absolute Neuts (auto) 12.5 H 10^3/uL
(1.4-6.5)
Neutrophils % 88.8 H %
(42.2-75.2)
Lymphocytes % 8.5 L %
(20.5-51.1)
Sodium 132 L mmol/L
(135-145)
Chloride 95 L mmol/L
(98-107)
Creatinine 0.5 L mg/dL
(0.6-1.0)
Glucose 107 H mg/dl
(70-99)
Magnesium 1.0 L mg/dl
(1.6-2.3)
AST 56 H U/L
(14-36)
ALT 40 H U/L
(0-35)
Leukocyte Esterase Rfl Trace A
(Negative)
Urine WBC (Reflex) 11-15 A /HPF
(0-5)
Urine Bacteria (Reflex) Few A
(Negative)
01/21/24 17:42
01/21/24 17:42
Vital Signs
Initial and Last Documented VS:
Initial Vital Signs
Pulse Resp Pulse Ox
115 26 92
01/21/24 17:20 01/21/24 17:20 01/21/24 17:20
Last Documented Vital Signs
Temp Pulse Resp BP Pulse Ox
99.9 F 112 27 132/78 97
01/21/24 19:17 01/21/24 19:45 01/21/24 19:45 01/21/24 19:00 01/21/24 19:30
MDM/Problems Addressed
Differential Diagnosis Includes:
HPI and MDM Narrative:
74-year-old female presenting for evaluation of dehydration. Patient states 'chemo is kicking my butt'. Patient has been to the emergency department several times for evaluation of hypomagnesemia and dehydration. Patient states he feels
dehydrated she has a history of chronic anemia and hypomagnesemia. She is due for the iron and magnesium transfusion tomorrow at the infusion center.
Patient states she is here for IV fluids
Physical exam
General: Weak and fatigued
HEENT: protecting airway. Dry mucous membranes
Neck: appears supple
CV: No evidence of cyanosis
Resp: No accessory muscle use
Abd: Non-distended. Soft and nontender. Ileostomy site clean and intact
Extremities: No deformities
Neuro: alert
Psych: Normal affect
Skin: Intact
Problems Addressed including Acute and Chronic Conditions affecting care:
1. Dehydration
Acuity: acute
Prognosis: stable
Details: Will give IV fluids and reassess
2. hypomagnesemia
Acuity: Chronic
Prognosis: stable
Details: Will replete
3. UTI
Acuity: acute
Prognosis: stable
Details: Will start levaquin
4. [ ]
Acuity: acute
Prognosis: stable
Details:
5. [ ]
Acuity:
Prognosis:
Details:
Updates
I went over her blood work. We discussed leukocytosis and hypomagnesemia. I did offer to infuse magnesium while here. Patient is interested in getting it tomorrow in the infusion center. She is worried about her low-grade fever. Given that
there is questionable UTI, will start Levaquin.
Throughout her stay, patient becoming more weak and fatigued. Will admit based on her lab abnormalities, generalized weakness and UTI
Differential Diagnosis (but not limited to): Dehydration, hypomagnesemia, adverse reaction to chemotherapy
Testing considered: Chest x-ray but lungs clear
Drug therapy (if applicable): OTC meds, please see d/c instruction regarding Rx drugs
Amount and/or Complexity of Data Reviewed
Clinical info obtained from: Patient
External data reviewed: N/A
Labs I independently reviewed (but not limited to): Leukocytosis, hypomagnesemia
Radiology: N/A
Pulse Ox: not hypoxic
EKG independently reviewed: N/A
Philosophy Faculty Member: N/A
Critical Care: N/A
Risk of Complication:
Social Determinants of health: Good social support
Discussed with other providers: Hospitalist
Escalation of Care includes Admit/Obs: given her lab abnormalities and general weakness will admit
Occasional wrong word or 'sound a like' substitutions may have occurred due to the inherent limitations of voice recognition software. Read the chart carefully and recognize, using context, where substitutions have occurred.
*Critical Care Note
Total Time (30-74mins, 75-104mins- exclusive of procedures): Not Applicable
ED Attending Note
-
Portions of this chart may have been created with voice recognition software.� Occasional wrong word or��sound alike� substitutions may have occurred due to the inherent limitations of voice recognition software.
Discharge Plan
Departure
Patient Disposition: Admit
Date of Disposition: 01/21/24
Time of Disposition: 20:35
Admit to: Med/Surg
Presentation/result/management discussed w/ accepting MD/DO: Hospitalist
Discharge Problem:
Acute UTI, Hypomagnesemia
Prescriptions:
No Action
lisinopril 5 MG tablet
2.5 mg PO DAILY
cyanocobalamin (vitamin B-12) 1,000 MCG tablet
1,000 mcg IM MONTHLY
phenobarbital 64.8 MG tablet
64.8 mg PO QPM
Patient Comments:
12/27/2023: last filled 11/10/23, 90 tabs for 90 days from [facility]
fluvoxamine 50 MG tablet
100 mg PO HS
cyclosporine [Restasis] 10 DROPS dropperette
1 drp BOTH EYES BID
rosuvastatin [Crestor] 5 mg Tablet
5 mg PO QPM
tiotropium bromide [Spiriva with HandiHaler] 18 mcg Capsule, W/Inhalation Device
1 cap INHALATION R DAILY
metoprolol succinate [Toprol XL] 50 mg Tablet Extended Release 24 Hr
50 mg PO DAILY
loperamide 2 mg Tablet
2 mg PO Q4HPRN PRN (Reason: diarrhea)
sodium chloride 1,000 mg tablet,soluble
1,000 mg PO BID Qty: 60 0RF
ascorbic acid (vitamin C) [Vitamin C] 500 mg Tablet
500 mg PO DAILY
loratadine [Claritin] 10 mg Tablet
10 mg PO DAILY
ondansetron HCl 8 mg Tablet
8 mg PO [id number] PRN (Reason: nausea )
fluvoxamine 50 mg Tablet
50 mg PO DAILY
levalbuterol tartrate [Xopenex HFA] 45 mcg/actuation Hfa Aerosol Inhaler
1 puff INHALATION R Q6HPRN PRN (Reason: sob)
fluticasone furoate-vilanterol [Breo Ellipta] 200-25 mcg/dose Blister With Device
1 inh INHALATION R DAILY
metoprolol succinate 25 mg Tablet Extended Release 24 Hr
25 mg PO HS
lorazepam [Ativan] 1 mg tablet
0.5 mg PO BID
Patient Comments:
12/27/2023: last filled 12/05/23, 60 tabs for 30 days from [place]
lorazepam [Ativan] 1 mg tablet
0.5 mg PO DAILY PRN (Reason: anxiety)
Patient Comments:
12/27/2023: last filled 12/05/23, 60 tabs for 30 days from [place]
prednisone 10 mg tablet
10 mg PO .TAPER
Patient Comments:
12/27/2023: 20mg until sunday then decreases to 10mg
Avastin
1 dose IV Q3W
Metamucil Fiber Singles 3.4 gram Powder In Packet
1 packet PO DAILYPRN PRN (Reason: diarrhea) Qty: 30 0RF
Referrals:
Marilyn Cortez MD [Family Provider] -
Interventions
Interventions:
*Risk Screen - Suicide Last Done: 01/21/24 17:56
*General Assessment Last Done: 01/21/24 17:20
*Neglect/Abuse Screening Last Done: 01/21/24 17:56
ED- Fall Risk Assessment Last Done: 01/21/24 17:56
*ED COVID-19 Vaccine History Last Done: 01/21/24 17:20
ED- Cardiac Assessment Last Done: 01/21/24 17:56
ED- Neurological Assessment Last Done: 01/21/24 17:56
ED- Pulmonary Assessment Last Done: 01/21/24 17:56
Discharge Date and Time
Print Language: JAPANESE
[2024-01-21] MEDS: NSS 1000 IV (17:27)
[2024-01-21 18:00] VITALS: BP 152/86
[2024-01-21 18:14] LABS: % Basophils 0.2 % (0-2); % Eosinophils 0.1 % (0-6); % Immature Granulocytes 0.5 % (0-0.5); % Lymphocytes 8.5 % (20.5-51.1); % Monocytes 1.9 % (1.7-9.3); % Neutrophils 88.8 % (42.2-75.2); Absolute Immature Granulocytes 0.1 10^3/uL (0-0.05); Absolute Lymphocytes 1.2 10^3/uL (1.2-3.4); Absolute Monocytes 0.3 10^3/uL (0.1-0.6); Absolute Neutrophils 12.5 10^3/uL (1.4-6.5); Hemoglobin 10.7 g/dL (12.0-16.0); Mean Corp Hgb Conc. 29.7 g/dL (33.0-37.0); Mean Corpuscular Hgb 23.4 pg (27.0-31.0); Mean Corpuscular Volume 78.6 fL (81.0-99.0); Mean Platelet Volume 8.6 fL (7.4-10.4); Nucleated Red Blood Cells % 0 %; Platelet Count 305 10^3/uL (130-400); Red Blood Cell Count 4.58 10^6/uL (4.20-5.40); Red Cell Dist. Width 17.9 % (11.5-14.5); Urine Albumin Negative (Neg - Trace); Urine Bilirubin Negative (Negative); Urine Character Clear (Clear); Urine Color Yellow; Urine Glucose Negative (Negative); Urine Ketone Negative (Negative); Urine Leukocyte Trace (Negative); Urine Nitrite Negative (Negative); Urine Occult Blood Negative (Negative); Urine Urobilinogen Negative (Neg - 1+); White Blood Cell Count 14.1 10^3/uL (4.8-10.8)
[2024-01-21] MEDS: ZOFRAN 4 MG IV (18:15)
[2024-01-21 18:30] LABS: Urine Bacteria Few (Negative)
[2024-01-21 18:31] LABS: ALT (SGPT) 40 U/L (0-35); AST (SGOT) 56 U/L (14-36); Albumin 3.6 g/dl (3.5-5.0); Alkaline Phosphatase 110 U/L (38-126); Blood Urea Nitrogen 8 mg/dl (7-17); Calcium 8.8 mg/dl (8.4-10.2); Carbon Dioxide 27 mmol/L (22-30); Chloride 95 mmol/L (98-107); Estimated Creatinine Clearance 67 ml/min; Glucose 107 mg/dl (70-99); Potassium 3.8 mmol/L (3.5-5.1); Sodium 132 mmol/L (135-145); Total Bilirubin 0.5 mg/dl (0.2-1.3); Total Protein 6.7 g/dl (6.3-8.2); eGFR > 60.00
[2024-01-21 19:00] VITALS: BP 132/78
[2024-01-21] MEDS: PHENERGAN 50.5 MG IV (20:12)
[2024-01-21] MEDS: MAGNESIUM SULFATE 100 IV (20:13)
[2024-01-21] MEDS: LEVAQUIN 50 IV (20:16)
--- NOTE | 2024-01-21 21:26 | HPS.HSE ---
Family Physician
-
Family Physician: Marilyn Cortez
Chief Complaint
-
Weakness
History of Present Illness
Patient is a 74y F with PMH significant for NSCLC on chemotherapy who presents to ED complaining of generalized weakness and fatigue. Patient is followed by [facility] and her last session of chemo was 01/15. She had a prior admission 12/29
- 01/01 secondary to hypomagnesemia and hypokalemia - presumed to be secondary to high ostomy output at that time. Patient has since discontinued her oral magnesium supplementation - as it was greatly contributing to her diarrhea / high ostomy
outputs. Her stools / ostomy function has significantly improved. However, she has continued to have significant hypomagnesemia and has required frequent IV Mg supplementation at [facility]. She received 4g Mg on 01/14 and on 01/17.
Today patient felt extremely weak and fatigued and was unable to get up / out of bed. She presented to the ED for evaluation and is again noted to have severe hypomagnesemia.
She has a hacking cough and R sided chest discomfort - but she notes that these are chronic issues and are no worse at present.
She has a R Pleurx catheter in place which she drains weekly. It has not been putting out much fluid and the plan is for tentative removal of this catheter later this month with supposition that the catheter itself is contributing to her pain.
Medical History
Past Medical History
Past Medical History: Reports Other
Additional Past Medical History:
NSCLC with recurrent right pleural effusion and Pleurx catheter
Essential hypertension
Seizure disorder
Crohn's disease
Hyperlipidemia
Chronic obstructive pulmonary disease
Iron Deficiency Anemia
Hypomagnesemia
Past Surgical History: Reports Other
Additional Past Surgical History:
Right Lower Lobectomy
Subtotal Colectomy / Ostomy for Crohn's disease
Cholecystectomy
Pleurx Catheter Placement
Social History
Tobacco: Former Smoker
Alcohol: None
Drug: None
Family History
Family History: Other (Mother had uterine cancer, father had cancer of unknown kind both late in life)
Allergies / Home Medications
Allergies reflects when Allergies were last updated in [facility].
Home Medications with original date entered in [facility]
Allergy/Medication List:
Patient is unable to recall her exact meds / doses.
If medication reconciliation has not been performed, why?: Medication List N/A
Review of Systems
-
History Source: Patient
A 12 point ROS was completed and negative except as noted: Yes
Constitutional: Reports Fatigue; Denies Fever or Chills
EENT: Denies Sore Throat or Runny Nose
Respiratory: Reports Cough and Trouble Breathing; Denies Hemoptysis
Cardiac: Reports Chest Pain; Denies Diaphoresis, Palpitations or Syncope
Abdomen/GI: Reports Other (Ostomy.); Denies Abdominal Pain, Nausea, Vomiting or Diarrhea
: Denies Dysuria or Frequency
Neurological: Reports Weakness; Denies Dizzy or Headache
Psych: Denies Depression or Anxiety
Physical Exam
Vital Signs
Vital Signs
Temp Pulse Resp BP Pulse Ox
99.9 F 90 27 132/78 98
01/21/24 19:17 01/21/24 20:45 01/21/24 20:45 01/21/24 19:00 01/21/24 20:45
Physical Exam
General: Other (Frail / Cachectic chronically ill-appearing 74y F in mild - moderate distress due to cough / pain.)
HEENT: Other (Dry MM. Neck supple.)
Respiratory: Other (Decreased BS with few rales over the R base. Pleurx catheter R anterior / lower chest without bleeding or discharge at the site.)
Cardiac: S1/S2 and Irregular Rhythm; No Murmur
GI: Soft, Non Tender, Non Distended, Normal Bowel Sounds and Other (Left sided ostomy in place with opaque collection device.)
Musculoskeletal: No Clubbing, No Cyanosis and No Edema
Neuro: AO x 3
Laboratory Results
-
01/21/24 17:42
01/21/24 17:42
Laboratory Results
Total Bilirubin 0.5 mg/dl (0.2-1.3) 01/21/24 17:42
AST 56 U/L (14-36) H 01/21/24 17:42
ALT 40 U/L (0-35) H 01/21/24 17:42
Alkaline Phosphatase 110 U/L (38-126) 01/21/24 17:42
Impression/Plan
-
A/P: Patient is a 74y F with PMH significant for NSCLC on chemotherapy who presents to ED complaining of severe weakness / fatigue and inabililty to walk.
Weakness / Fatigue
- Admit for further evaluation and treatment.
- ? secondary to severe hypomagnesemia versus malignancy versus multifactorial.
- Treat correctable issues as noted below.
- PT / OT evaluations in the AM and assess for gait safety.
- Follow for clinical improvement.
Hypomagnesemia
- Mg level = 1 today despite recent / multiple magnesium infusions.
- Patient is no longer having excessive ostomy output (and is no longer on enteral Mg replacement).
- Continue IV supplementation.
- Unclear reason for her significant hypomagnesemia?
NSCLC
Malignant Right Pleural Effusion
Cough / Chest Pain secondary to the above
- Last chemo dose was 01/15. Plan for a brief interruption to allow for Pleurx removal later this month.
- Will ask Oncology to evaluate (see below).
- Supportive care including cough suppressant, pain control, etc.
- Check CXR for evidence of new changes, pneumonia, etc.
- Received dose of Levaquin in the ED, but will observe off of further abx for now unless fever, infiltrate or other evidence of active infection.
- IR beside eval for Pleurx access / care.
Chemo-Induced Pneumonitis
Chronic Hypoxemic Respiratory Insufficiency
- Stable. Patient notes that she has tapered completely off of prednisone since last admission.
- Remains on O2 at home - currently at 2 lpm.
- Taper O2 as able.
- Continue inhaled medications, ICS, nebs, etc.
Iron Deficiency Anemia
- Patient is in the midst of Injectafer replacement - last dose on 01/14 (750mg).
- She is due for her next dose this AM - 01/21.
- She received this at [facility]; however, it is not on the inpatient formulary.
- ? give Ferrlecit dose instead or is there some way to get usual dose of Injectafer for tomorrow?
Crohn's Disease
- Stable. s/p remote subtotal colectomy with ileostomy.
- Volume of ostomy output has significantly improved since last admission - mostly due to elimination of enteral Mg supplements.
- Routine ostomy care. Follow for any changes. Loperamide PRN for any water stools / increased output.
Anxiety / Depression
- Stable. Continue outpatient fluvoxamine.
- Ativan PRN for anxiety.
- Follow for any changes in mood.
DVT Prophylaxis: Lovenox
Code Status: Full
[2024-01-21 21:34] VITALS: BP 152/85
[2024-01-21 22:00] VITALS: BP 110/65
[2024-01-21] MEDS: TESSALON PERLES 200 MG PO (22:08)
[2024-01-21 23:00] VITALS: BP 110/65
[2024-01-22] VITALS (11 sets, daily range): BP systolic 100–149; BP diastolic 64–93; PULSE 99–125; BMI 21.6
[2024-01-22] MEDS: TOPROL XL PO
[2024-01-22] MEDS: LUVOX PO (00:01)
[2024-01-22] MEDS: DILAUDID 0.5 MG IV (00:03)
[2024-01-22] MEDS: LR 1000 IV (00:14)
[2024-01-22 05:29] LABS: Hematocrit 30.2 % (37.0-47.0); Hemoglobin 9.5 g/dL (12.0-16.0); Mean Corp Hgb Conc. 31.5 g/dL (33.0-37.0); Mean Corpuscular Hgb 23.8 pg (27.0-31.0); Mean Corpuscular Volume 75.7 fL (81.0-99.0); Mean Platelet Volume 8.7 fL (7.4-10.4); Platelet Count 218 10^3/uL (130-400); Red Blood Cell Count 3.99 10^6/uL (4.20-5.40); Red Cell Dist. Width 17.5 % (11.5-14.5); White Blood Cell Count 8.8 10^3/uL (4.8-10.8)
[2024-01-22 05:56] LABS: Blood Urea Nitrogen 7 mg/dl (7-17); Calcium 8.2 mg/dl (8.4-10.2); Carbon Dioxide 30 mmol/L (22-30); Chloride 97 mmol/L (98-107); Estimated Creatinine Clearance 67 ml/min; Glucose 97 mg/dl (70-99); Magnesium 1.8 mg/dl (1.6-2.3); Potassium 3.6 mmol/L (3.5-5.1); Sodium 130 mmol/L (135-145); eGFR > 60.00
[2024-01-22 06:56] LABS: TSH Reflex To Free T4 4.21 uIU/ml (0.47-4.68)
--- NOTE | 2024-01-22 07:10 | EDRN ---
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 the pt states she wants to sign out AMA or be discharged home immediately. She tells me she has an iron infusion scheduled at [facility] at 0830 this morning and
she does not want to miss it. She is requesting that a physician comes down and talks to her. the pts attending provider Dr Ward Gomez was contacted via [facility] and notified of above.
[2024-01-22] MEDS: DUONEB 3 ML INH (08:27)
[2024-01-22] MEDS: PULMICORT 0.25 MG INH (08:27)
--- NOTE | 2024-01-22 08:47 | PN.IRAD.UPD ---
Update Note - IRAD
- -
Spoke to pt about Asept catheter. Pt claims she gets it drained every and only gets 50ml. If patient is still in house we will drain.
Rod Salamanca RT(R)()
[2024-01-22] MEDS: HEPARIN 5000 UNITS SC (08:50)
[2024-01-22] MEDS: RESTASIS 0.05% OPHTHALMIC EMULSION 1 DROPS BOTH EYES ×2 (08:54→20:10)
[2024-01-22] MEDS: LUVOX 50 MG PO ×2 (08:54→20:10)
[2024-01-22] MEDS: SODIUM CHLORIDE 1 GRAM PO ×2 (08:55→20:10)
[2024-01-22] MEDS: ZESTRIL 2.5 MG PO (08:57)
[2024-01-22] MEDS: TOPROL XL 50 MG PO (08:57)
--- NOTE | 2024-01-22 08:59 | EDRN ---
physical therapy is present at bedside to evaluate this pt
[2024-01-22] MEDS: ZOFRAN 4 MG IV ×2 (10:29→13:55)
[2024-01-22] MEDS: DUONEB INH (11:45)
[2024-01-22] MEDS: LOMOTIL 1 TABLET PO ×2 (12:45→19:22)
[2024-01-22] MEDS: LR IV (13:34)
--- NOTE | 2024-01-22 13:47 | PTCARENOTE ---
Received patient from ED. ASHLEY Blake. Oriented to unit.
--- NOTE | 2024-01-22 14:00 | CM ---
Consult received for Advance Directive. I met with Benjamin briefly, had a copy of the [facility] approved AD to provide. At that time Benjamin advised that she already had an AD and her son is her decision maker. She did not need a new
one. We discussed her home situation - Benjamin hires an RN and aids to help take care of her at home. I asked her if she would be interested in having a visiting nurse service at home which would be covered by her insurance, but she declined.
Anticipate that Benjamin will return home at discharge with continued private pay help.
[2024-01-22] MEDS: SPIRIVA RESPIMAT 2.5 MCG INH (14:53)
[2024-01-22] MEDS: TYLENOL 1000 MG PO (17:00)
[2024-01-22] MEDS: CRESTOR 5 MG PO (17:00)
[2024-01-22] MEDS: LUMINAL 64.7999999999999972 MG PO (17:00)
[2024-01-22] MEDS: SYMBICORT 160/4.5 MCG INHALER 2 PUFF INH (19:33)
[2024-01-22] MEDS: HEPARIN SC (20:10)
[2024-01-22] MEDS: TOPROL XL 25 MG PO (20:10)
[2024-01-22] MEDS: TESSALON PERLES 200 MG PO (20:11)
[2024-01-22] MEDS: ZOFRAN 8 MG PO (20:13)
[2024-01-22] MEDS: ATIVAN 0.5 MG PO (20:18)
--- NOTE | 2024-01-22 20:33 | W.PN.HOSP.TC ---
Addendum entered and electronically signed by Ward Gomez MD 01/23/24 00:24:
Attending Addendum-
I saw and evaluated the patient. I reviewed the resident�s note and agree with findings and plan as documented in the resident�s note. patient with continued nausea and inability to take PO. Feels weak. Full 12 point ROS reviewed and negative except
as documented Exam: gen NAD heart RRR lungs decreased BS RLL right pleurx cath present CDI abd soft NT ND ostomy present empty bad LE- No edema b/l
Weakness / Fatigue
- ? secondary to severe hypomagnesemia versus malignancy versus anemia vs chemotherapy
- Treat correctable issues as noted below.
- PT / OT evaluations in the AM and assess for gait safety.
- Follow for clinical improvement.
Hypomagnesemia
- resolved
- Patient is no longer having excessive ostomy output (and is no longer on enteral Mg replacement).
- Continue IV supplementation prn
NSCLC
Malignant Right Pleural Effusion
- Last chemo dose was 01/15. Plan for a brief interruption to allow for Pleurx removal later this month.
- onc to f/u as OP
- Supportive care including cough suppressant, pain control, etc.
- Check CXR 01/21- personally reviewed - Moderate loculated right pleural effusion. Stable.
Mild right perihilar airspace disease suggesting pneumonia. Slightly improved.
- Received dose of Levaquin in the ED, but will observe off of further abx for now unless fever, infiltrate or other evidence of active infection.
- IR beside eval for Pleurx access / care.
Chemo-Induced Pneumonitis
Chronic Hypoxemic Respiratory Insufficiency/COPD
- Stable. Patient notes that she has tapered completely off of prednisone since last admission.
- Remains on O2 at home - currently at 2 lpm.
- Taper O2 as able.
- Continue inhaled medications, ICS, nebs, etc.
Iron Deficiency Anemia
- Patient is in the midst of Injectafer replacement - last dose on 01/14 (750mg).
- She is due for her next dose this AM - 01/21.
- She received this at [facility]; however, it is not on the inpatient formulary.
- d/w onc ok for postpone until after DC
Hyponatremia
- hypovolemic
- repeat in am
- encourage PO intake
Nausea
-increase zofran
Crohn's Disease
- Stable. s/p remote subtotal colectomy with ileostomy.
- Volume of ostomy output has significantly improved since last admission - mostly due to elimination of enteral Mg supplements.
- Routine ostomy care. Follow for any changes. Loperamide PRN for any water stools / increased output.
Anxiety / Depression
- Stable. Continue outpatient fluvoxamine.
- Ativan PRN for anxiety.
- Follow for any changes in mood.
DVT Prophylaxis: Lovenox
Code Status: Full
Dispo DC home in AM if tolerating PO
Time spent coordinating care, review of plan of care with resident, review of records, med rec, consults, notes, labs, rads, d/w nursing and onc � 55 mins
Original Note:
Today's Communication/Plan
-
Weakness improved with IV fluid
PT/OT
Discharge planning
Assessment / Plan
Assessment / Plan
Assessment:
Patient is a 74-year-old female with past medical history of non-small cell lung cancer known to [facility], on chemotherapy who presented to ED with complaints of weakness, fatigue and dehydration. She was recently discharged from this
facility on 01/02/2024 after a short stay for hypomagnesemia and hypokalemia. Patient stated that she gets iron infusion and IV magnesium supplementation every 2-3 and Fridays no matter how magnesium level at [facility]. Patient was admitted to the floor
for further evaluation and management.
CONDITIONS PRIOR TO ADMISSION:
Non-small cell lung cancer with recurrent right pleural effusion.
Pleurx catheter.
Seizure disorder
Crohn's disease
Ileostomy bag in place
Hyperlipidemia
COPD
Iron deficiency anemia
Hypomagnesemia
Essential hypertension
Impression/Plan:
Presentation with acute weakness and dehydration:
-Improved with IV fluid. Multifactorial (dehydration vs iron deficiency anemia).
-Patient refused further resuscitation with IV fluid, tolerated oral intake.
-Blood pressure stable.
-Patient with known microcytic anemia, with hemoglobin 9.5 today.
-Missed iron infusion today due to presentation to the hospital. States that she does not need appointment for for Sunday infusion.
-Will monitor overnight and discharge tomorrow if she continues to be stable.
-PT/OT.
Nausea:
-Received 4 mg IV Zofran, continue 8 mg PO Zofran every 6 hours as needed.
Hypomagnesemia:
-Magnesium level today 1.8.
-Patient with chronic hypomagnesemia despite limited ostomy output.
-Continue IV magnesium supplementation as scheduled (Tuesdays and Fridays).
Non-small cell lung cancer:
-Malignant right pleural effusion with mild chest discomfort secondary to above.
-Patient refused Dilaudid for pain and requested 1000 mg acetaminophen which was provided.
-Continue pain medication as needed.
-CXR 01/22/2024 with moderate loculated right pleural effusion that is stable.
-Brief interruption in chemo to allow Pleurx removal later this morning.
-IR on board.
Iron deficiency anemia:
-Injectafer replacement every Tuesdays and Fridays per patient- last dose on 01/14 (750mg) at [facility].
-Missed today's infusion due to presentation to the hospital, however this is not formulary for inpatient.
-Patient will continue at discharge.
Crohn's disease:
-Stable.
-S/p subtotal colectomy with ileostomy.
-Routine ostomy care.
-Continue loperamide.

CXR 01/22/2024: Moderate loculated right pleural effusion. Stable.
Anticipated Discharge: Within 24 hours
Subjective/Interval History
-
Date of Service: January 22, 2024
Objective Data
-
Vital Signs:
Vital Signs
Temp Pulse Resp BP Pulse Ox
97.7 F 99 18 100/64 97
01/22/24 19:50 01/22/24 19:50 01/22/24 19:50 01/22/24 19:50 01/22/24 19:50
I&O
01/21/24 01/22/24 01/23/24
06:59 06:59 06:59
Intake Total 540 / 540
Balance 540 / 540
Review of Systems
-
History Source: Patient
Constitutional: Reports Fatigue and Weakness; Denies Fever
EENT: Reports No Symptoms Reported
Respiratory: Reports No Symptoms; Denies Trouble Breathing
Cardiac: Reports No Symptoms; Denies Chest Pain or Palpitations
Abdomen/GI: Reports Nausea; Denies Vomiting
Genitourinary: Reports No Symptoms
Musculoskeletal: Reports No Symptoms
Skin: Reports No Symptoms
Neuro: Reports Weakness; Denies Headache, Numbness or Ataxia
Endocrine: Reports No Symptoms
Physical Exam
-
General: Well Developed and No Apparent Distress
HEENT: Normocephalic, Atraumatic and Moist Mucous Membranes
Respiratory: Clear to Auscultation
Cardiac: Regular Rhythm and S1/S2; Negative Murmur, Rub or Gallop
GI: Soft, Nontender, Nondistended and Normal Bowel Sounds; Negative Organomegaly
Rectal: Deferred by Provider
Musculoskeletal: No Clubbing, No Cyanosis and No Edema
Skin: Negative Rash
Neuro: Nonfocal/Grossly Intact
Data Reviewed
-
Diagnostic Radiology: Report Reviewed by me and Discussed with Physician
Labs: Labs Reviewed by me and Discussed with Physician
Old Records: Reviewed
[2024-01-23] MEDS: TYLENOL 1000 MG PO ×2 (02:04→08:10)
[2024-01-23] MEDS: ZOFRAN 8 MG PO ×2 (02:13→08:13)
[2024-01-23 03:47] VITALS: BP 112/70
--- NOTE | 2024-01-23 07:08 | W.PN.HOSP.TC ---
Addendum entered and electronically signed by Ward Gomez MD 01/23/24 23:18:
Attending Addendum-
I saw and evaluated the patient. I reviewed the resident�s note and agree with findings and plan as documented in the resident�s note. tolerating PO upset and wants to leave ranjeet. Full 12 point ROS reviewed and negative except as documented Exam:
vitals reviewed in chart gen NAD heart RRR lungs decreased BS RLL right Pleurx cath present CDI abd soft NT ND ostomy present empty bag LE- No edema b/l
Weakness / Fatigue
- secondary to severe hypomagnesemia versus malignancy versus anemia vs chemotherapy
- Treat correctable issues as noted below.
- improved
Hypomagnesemia
- replete 1.3
- Patient is no longer having excessive ostomy output (and is no longer on enteral Mg replacement).
- Continue IV supplementation prn as OP
NSCLC
Malignant Right Pleural Effusion
- Last chemo dose was 01/15. Plan for a brief interruption to allow for Pleurx removal later this month.
- onc to f/u as OP
- Supportive care including cough suppressant, pain control, etc.
- Check CXR 01/21- personally reviewed - Moderate loculated right pleural effusion. Stable.
Mild right perihilar airspace disease suggesting pneumonia. Slightly improved.
- Received dose of Levaquin in the ED, but will observe off of further abx for now unless fever, infiltrate or other evidence of active infection.
- IR beside eval for Pleurx access / care.
Chemo-Induced Pneumonitis
Chronic Hypoxemic Respiratory Insufficiency/COPD
- Stable. Patient notes that she has tapered completely off of prednisone since last admission.
- Remains on O2 at home - currently at 2 lpm.
- Taper O2 as able.
- Continue inhaled medications, ICS, nebs, etc.
Iron Deficiency Anemia
- She received this at [facility]; however, it is not on the inpatient formulary.
- d/w onc ok for postpone until after DC
Hyponatremia
- hypovolemic
- repeat in am
- encourage PO intake
Nausea
-increase zofran
-resolved
Crohn's Disease
- Stable. s/p remote subtotal colectomy with ileostomy.
- Volume of ostomy output has significantly improved since last admission - mostly due to elimination of enteral Mg supplements.
- Routine ostomy care. Follow for any changes. Loperamide PRN for any water stools / increased output.
Anxiety / Depression
- Stable. Continue outpatient fluvoxamine.
- Ativan PRN for anxiety.
- Follow for any changes in mood.
DVT Prophylaxis: Lovenox
Code Status: Full
Dispo DC home after mag repletion
Time spent coordinating care, review of plan of care with resident, review of records, med rec, consults, notes, labs, dc planning, transition of care, rads, d/w nursing and onc � 36 mins
Original Note:
Today's Communication/Plan
-
Replete magnesium
Discharge planning
Assessment / Plan
Assessment / Plan
Assessment:
Patient is a 74-year-old female with past medical history of non-small cell lung cancer known to [place] [facility], on chemotherapy who presented to ED with complaints of weakness, fatigue and dehydration. She was recently discharged from this
facility on 01/02/2024 after a short stay for hypomagnesemia and hypokalemia. Patient stated that she gets iron infusion and IV magnesium supplementation every 2- and Fridays no matter how magnesium level at [facility]. Patient was admitted to the floor
for further evaluation and management.
CONDITIONS PRIOR TO ADMISSION:
Non-small cell lung cancer with recurrent right pleural effusion.
Pleurx catheter.
Seizure disorder
Crohn's disease
Ileostomy bag in place
Hyperlipidemia
COPD
Iron deficiency anemia
Hypomagnesemia
Essential hypertension
Impression/Plan:
Presentation with acute weakness and dehydration:
-Improved with IV fluid. Multifactorial (dehydration vs iron deficiency anemia).
-Patient refused further resuscitation with IV fluid, tolerated oral intake.
-Blood pressure stable.
-Patient with known microcytic anemia, with hemoglobin 9.5 today.
-Missed iron infusion today due to presentation to the hospital. States that she does not need appointment for for Sunday infusion.
-Will monitor overnight and discharge tomorrow if she continues to be stable.
-PT/OT.
Nausea:
-Received 4 mg IV Zofran, continue 8 mg PO Zofran every 6 hours as needed.
Hypomagnesemia:
-Magnesium level dropped to 1.3 today.
-Repleted magnesium, patient scheduled for magnesium infusion in 2 days.
-Patient with chronic hypomagnesemia despite limited ostomy output likely due to short gut syndrome.
-Continue IV magnesium supplementation as scheduled (Tuesdays and Fridays).
Non-small cell lung cancer:
-Malignant right pleural effusion with mild chest discomfort secondary to above.
-Patient refused Dilaudid for pain and requested 1000 mg acetaminophen which was provided.
-Continue pain medication as needed.
-CXR 01/22/2024 with moderate loculated right pleural effusion that is stable.
-Brief interruption in chemo to allow Pleurx removal later this morning.
-IR on board.
Iron deficiency anemia:
-Injectafer replacement every Tuesdays and Fridays per patient- last dose on 01/14 (750mg) at [facility].
-Missed today's infusion due to presentation to the hospital, however this is not formulary for inpatient.
-Patient will continue at discharge.
Crohn's disease:
-Stable.
-S/p subtotal colectomy with ileostomy.
-Routine ostomy care.
-Continue loperamide.

CXR 01/22/2024: Moderate loculated right pleural effusion. Stable.
Anticipated Discharge: Today
Subjective/Interval History
-
Date of Service: January 23, 2024
There was no acute event reported overnight. Patient was seen and examined in the room in no acute distress. Patient denies shortness of breath, chest pain, abdominal pain, fever or chills.
Objective Data
-
Vital Signs:
Vital Signs
Temp Pulse Resp BP Pulse Ox
98.6 F 100 16 112/70 97
01/23/24 03:47 01/23/24 03:47 01/23/24 03:47 01/23/24 03:47 01/23/24 03:47
I&O
01/22/24 01/23/24 01/24/24
06:59 06:59 06:59
Intake Total 1500 / 1500
Balance 1500 / 1500
Review of Systems
-
History Source: Patient
Constitutional: Reports Fatigue and Weakness; Denies Fever
EENT: Reports No Symptoms Reported
Respiratory: Reports No Symptoms; Denies Trouble Breathing
Cardiac: Reports No Symptoms; Denies Chest Pain or Palpitations
Abdomen/GI: Reports Nausea; Denies Vomiting
Genitourinary: Reports No Symptoms
Musculoskeletal: Reports No Symptoms
Skin: Reports No Symptoms
Neuro: Reports Weakness; Denies Headache, Numbness or Ataxia
Endocrine: Reports No Symptoms
Physical Exam
-
General: Well Developed and No Apparent Distress
HEENT: Normocephalic, Atraumatic and Moist Mucous Membranes
Respiratory: Clear to Auscultation
Cardiac: Regular Rhythm and S1/S2; Negative Murmur, Rub or Gallop
GI: Soft, Nontender, Nondistended and Normal Bowel Sounds; Negative Organomegaly
Rectal: Deferred by Provider
Musculoskeletal: No Clubbing, No Cyanosis and No Edema
Skin: Negative Rash
Neuro: Nonfocal/Grossly Intact
Data Reviewed
-
Diagnostic Radiology: Report Reviewed by me and Discussed with Physician
Labs: Labs Reviewed by me and Discussed with Physician
Old Records: Reviewed
[2024-01-23] MEDS: SPIRIVA RESPIMAT 2.5 MCG 2 PUFF INH (07:25)
[2024-01-23] MEDS: SYMBICORT 160/4.5 MCG INHALER 2 PUFF INH (07:25)
[2024-01-23 08:00] VITALS: BP 126/68
[2024-01-23] MEDS: LUVOX 50 MG PO (08:11)
[2024-01-23] MEDS: TOPROL XL 50 MG PO (08:11)
[2024-01-23] MEDS: SODIUM CHLORIDE 1 GRAM PO (08:11)
[2024-01-23] MEDS: RESTASIS 0.05% OPHTHALMIC EMULSION 1 DROPS BOTH EYES (08:11)
[2024-01-23] MEDS: ZESTRIL 2.5 MG PO (08:12)
[2024-01-23] MEDS: HEPARIN SC (08:14)
[2024-01-23] MEDS: TESSALON PERLES 200 MG PO (08:20)
[2024-01-23 10:47] LABS: Blood Urea Nitrogen 11 mg/dl (7-17); Calcium 8.6 mg/dl (8.4-10.2); Carbon Dioxide 29 mmol/L (22-30); Chloride 97 mmol/L (98-107); Estimated Creatinine Clearance 67 ml/min; Glucose 128 mg/dl (70-99); Magnesium 1.3 mg/dl (1.6-2.3); Potassium 3.7 mmol/L (3.5-5.1); Sodium 131 mmol/L (135-145); eGFR > 60.00
[2024-01-23 11:14] VITALS: BP 128/76
[2024-01-23] MEDS: MAGNESIUM SULFATE 102 GRAMS IV (11:46)
--- NOTE | 2024-01-23 12:20 | CM ---
CM reviewed chart, patient for discharge today. Patient reports she has transportation home from her son. CM will continue to follow for discharge planning needs.
Plan; home with private duty caregivers.
--- NOTE | 2024-01-23 21:05 | W.DCSUMMARY ---
Documented by User: Gonzalez Boswell MD, Resident 01/23/24 21:12
Discharge Summary
Discharge Data
Date of Admission: 01/21/24
Date of Discharge: 01/23/24
-
Pending Results: No
Hospital Course
Patient is a 74-year-old female with past medical history of NSCLC who presented to ED with fatigue, nausea and dehydration. Patient stated that she got her chemotherapy 7 days [employer] and has been progressively weak on the presentation. Patient
was admitted to the floor for further evaluation and management.
Overnight, patient was treated with IV fluid, oral and IV Zofran, Luvox, with improvement of her weakness. Patient tolerated oral intake and is now stable for discharge. Patient is now discharged home with private home care.
Condition on discharge: Awake, alert and oriented x3, answer question properly, able to make own decision and take care of activities of daily living, speech clear and comprehensive, continent of the bowel and bladder, ambulate without sales and marketing assistant,
goes home where�she lives with family independently.
Discharge Plan
-
Patient Disposition: Home (Routine Discharge)
Discharge Diagnosis/Procedures: Acute dehydration
Diet: Regular
Activity: As tolerated
Driving Restrictions: As prior to admission
Referrals:
Marilyn Cortez MD [Family Provider] -
Prescriptions:
New
fluvoxamine 50 mg Tablet
50 mg PO BID Qty: 60 0RF
lisinopril 2.5 mg Tablet
2.5 mg PO DAILY Qty: 30 0RF
rosuvastatin 5 mg Tablet
5 mg PO QPM Qty: 30 0RF
benzonatate 100 mg Capsule
200 mg PO TIDPRN PRN (Reason: Cough) Qty: 7 0RF
ondansetron HCl 4 mg Tablet
8 mg PO Q6HPRN PRN (Reason: Nausea) Qty: 30 0RF
Continued
phenobarbital 64.8 MG tablet
64.8 mg PO QPM
tiotropium bromide [Spiriva with HandiHaler] 18 mcg Capsule, W/Inhalation Device
1 cap INHALATION R DAILY
metoprolol succinate [Toprol XL] 50 mg Tablet Extended Release 24 Hr
50 mg PO DAILY
sodium chloride 1,000 mg tablet,soluble
1,000 mg PO BID Qty: 60 0RF
ascorbic acid (vitamin C) [Vitamin C] 500 mg Tablet
500 mg PO DAILY
loratadine [Claritin] 10 mg Tablet
10 mg PO DAILY
fluticasone furoate-vilanterol [Breo Ellipta] 200-25 mcg/dose Blister With Device
1 inh INHALATION R DAILY
metoprolol succinate 25 mg Tablet Extended Release 24 Hr
25 mg PO QPM
lorazepam [Ativan] 1 mg tablet
1 mg PO BID
Avastin
1 dose IV Q3W
Patient Comments:
01/21/2024, per pt., she gets this infusion through [facility].
diphenoxylate-atropine 2.5-0.025 mg Tablet
1 - 2 tab PO QIDPRN PRN (Reason: diarrhea)
acetaminophen [Tylenol Extra Strength] 500 mg Tablet
1,000 mg PO BIDPRN PRN (Reason: mild pain)
ondansetron 8 mg tablet,disintegrating
8 mg PO [id number] PRN (Reason: nausea/vomiting)
calcitonin (salmon) 200 unit/actuation [place],Non-Aerosol
1 spray INTRANASAL (ALT) DAILY
Patient Comments:
01/21/2024, pt. forgets to take this med regularly.
fluvoxamine 100 mg Tablet
50 mg PO BID
cyanocobalamin (vitamin B-12) 1,000 mcg/mL Solution
1,000 mcg IM QMONTH
folic acid 1 mg Tablet
1 mg PO DAILY
lisinopril 2.5 mg Tablet
2.5 mg PO DAILY
cyclosporine [Restasis] 0.05 % Dropperette
1 drp BOTH EYES Q12H
rosuvastatin 5 mg Tablet
5 mg PO QPM
cholecalciferol (vitamin D3) 1,250 mcg (50,000 unit) Capsule
1,250 mcg PO TU@0800
Discharge Orders:
Discharge Patient (As Directed); Ordered 01/23/24
Ordered By: Gonzalez Boswell
Discharge Date and Time
Discharge Date/Time: 01/23/24 13:12
Print Language: OCCITAN

Documented by User: Ward Gomez MD 01/23/24 23:12
Discharge Summary
Discharge Data
Date of Admission: 01/21/24
Date of Discharge: 01/23/24
Discharge Plan
-
Patient Disposition: Home (Routine Discharge)
Discharge Diagnosis/Procedures: Acute dehydration
Diet: Regular
Activity: As tolerated
Driving Restrictions: As prior to admission
Referrals:
Marilyn Cortez MD [Family Provider] -
Prescriptions:
New
fluvoxamine 50 mg Tablet
50 mg PO BID Qty: 60 0RF
lisinopril 2.5 mg Tablet
2.5 mg PO DAILY Qty: 30 0RF
rosuvastatin 5 mg Tablet
5 mg PO QPM Qty: 30 0RF
benzonatate 100 mg Capsule
200 mg PO TIDPRN PRN (Reason: Cough) Qty: 7 0RF
ondansetron HCl 4 mg Tablet
8 mg PO Q6HPRN PRN (Reason: Nausea) Qty: 30 0RF
Continued
phenobarbital 64.8 MG tablet
64.8 mg PO QPM
tiotropium bromide [Spiriva with HandiHaler] 18 mcg Capsule, W/Inhalation Device
1 cap INHALATION R DAILY
metoprolol succinate [Toprol XL] 50 mg Tablet Extended Release 24 Hr
50 mg PO DAILY
sodium chloride 1,000 mg tablet,soluble
1,000 mg PO BID Qty: 60 0RF
ascorbic acid (vitamin C) [Vitamin C] 500 mg Tablet
500 mg PO DAILY
loratadine [Claritin] 10 mg Tablet
10 mg PO DAILY
fluticasone furoate-vilanterol [Breo Ellipta] 200-25 mcg/dose Blister With Device
1 inh INHALATION R DAILY
metoprolol succinate 25 mg Tablet Extended Release 24 Hr
25 mg PO QPM
lorazepam [Ativan] 1 mg tablet
1 mg PO BID
Avastin
1 dose IV Q3W
Patient Comments:
01/21/2024, per pt., she gets this infusion through [facility].
diphenoxylate-atropine 2.5-0.025 mg Tablet
1 - 2 tab PO QIDPRN PRN (Reason: diarrhea)
acetaminophen [Tylenol Extra Strength] 500 mg Tablet
1,000 mg PO BIDPRN PRN (Reason: mild pain)
ondansetron 8 mg tablet,disintegrating
8 mg PO [id number] PRN (Reason: nausea/vomiting)
calcitonin (salmon) 200 unit/actuation [place],Non-Aerosol
1 spray INTRANASAL (ALT) DAILY
Patient Comments:
01/21/2024, pt. forgets to take this med regularly.
fluvoxamine 100 mg Tablet
50 mg PO BID
cyanocobalamin (vitamin B-12) 1,000 mcg/mL Solution
1,000 mcg IM QMONTH
folic acid 1 mg Tablet
1 mg PO DAILY
lisinopril 2.5 mg Tablet
2.5 mg PO DAILY
cyclosporine [Restasis] 0.05 % Dropperette
1 drp BOTH EYES Q12H
rosuvastatin 5 mg Tablet
5 mg PO QPM
cholecalciferol (vitamin D3) 1,250 mcg (50,000 unit) Capsule
1,250 mcg PO TU@0800
Discharge Orders:
Discharge Patient (As Directed); Ordered 01/23/24
Ordered By: Gonzalez Boswell
Discharge Date and Time
Discharge Date/Time: 01/23/24 13:12
Print Language: OCCITAN
--- NOTE | 2024-01-23 21:12 | W.DS.TRANS ---
DC Summary - [employer]
-
Discharge Instructions:
Discharge Diagnosis/Procedures Acute dehydration
Diet Regular
Activity As tolerated
Driving Restrictions As prior to admission
Instructions:
Stand-Alone Forms:
Changes to Home Medications: Yes
Discharge Medications:
DC Medications w/original date entered in [employer]
phenobarbital 64.8 mg tablet 64.8 mg PO QPM Neurological Condition 03/12/19
tiotropium bromide 18 mcg capsule with inhalation device (Spiriva with HandiHaler) 1 cap inhalation R DAILY Lung/Breathing Issues 09/26/22
metoprolol succinate 50 mg tablet,extended release 24 hr (Toprol XL) 50 mg PO DAILY Heart Disease/Condition 09/17/23
sodium chloride 1,000 mg soluble tablet 1,000 mg PO BID Supplement #60 tabs 09/20/23
ascorbic acid (vitamin C) 500 mg tablet (Vitamin C) 500 mg PO DAILY Supplement 11/09/23
loratadine 10 mg tablet (Claritin) 10 mg PO DAILY Allergies 11/09/23
fluticasone furoate 200 mcg-vilanterol 25 mcg/dose inhalation powder (Breo Ellipta) 1 inh inhalation R DAILY Lung/Breathing Issues 11/22/23
metoprolol succinate 25 mg tablet,extended release 24 hr 25 mg PO QPM Heart Disease/Condition 12/25/23
lorazepam 1 mg tablet (Ativan) 1 mg PO BID 12/27/23
Avastin 1 dose IV Q3W Cancer 12/28/23
acetaminophen 500 mg tablet (Tylenol Extra Strength) 1,000 mg PO BIDPRN PRN mild pain 01/21/24
calcitonin (salmon) 200 unit/actuation nasal spray 1 spray intranasal (ALT) DAILY 01/21/24
cholecalciferol (vitamin D3) 1,250 mcg (50,000 unit) capsule 1,250 mcg PO TU@0800 01/21/24
cyanocobalamin (vitamin B-12) 1,000 mcg/mL injection solution 1,000 mcg IM QMONTH 01/21/24
cyclosporine 0.05 % eye drops in a dropperette (Restasis) 1 drp BOTH EYES Q12H 01/21/24
diphenoxylate-atropine 2.5 mg-0.025 mg tablet 1 - 2 tab PO QIDPRN PRN diarrhea 01/21/24
fluvoxamine 100 mg tablet 50 mg PO BID 01/21/24
folic acid 1 mg tablet 1 mg PO DAILY 01/21/24
lisinopril 2.5 mg tablet 2.5 mg PO DAILY 01/21/24
ondansetron 8 mg disintegrating tablet 8 mg PO [id number] PRN nausea/vomiting 01/21/24
rosuvastatin 5 mg tablet 5 mg PO QPM 01/21/24
benzonatate 100 mg capsule 200 mg (2 x 100 mg) PO TIDPRN PRN Cough #7 caps 01/23/24
fluvoxamine 50 mg tablet 50 mg PO BID #60 tabs 01/23/24
lisinopril 2.5 mg tablet 2.5 mg PO DAILY #30 tabs 01/23/24
ondansetron HCl 4 mg tablet 8 mg (2 x 4 mg) PO Q6HPRN PRN Nausea #30 tabs 01/23/24
rosuvastatin 5 mg tablet 5 mg PO QPM #30 tabs 01/23/24
Home Medication Changes
Pending Results: No
--- NOTE | 2024-01-24 15:12 | CM ---
CM received call from Eli with [facility], need return of care referral sent in [facility] or script faxed to [phone]. TT sent to resident, order for VN made. Referral sent in [facility] to [facility].
== END 2024-01-23 13:12 | disposition home health service (06) | DRG 641 ==
LOC: 4 EAST ACU 22:07
PROVIDERS: Student in an Organized Health Care Education/Training Program; ADMITTING PHYSICIAN Hospitalist; ATTENDING PHYSICIAN Family Medicine; EMERGENCY PHYSICIAN Student in an Organized Health Care Education/Training Program; FAMILY PHYSICIAN Internal Medicine
DX: E83.42 Hypomagnesemia (principal); C34.90 Malignant neoplasm of unspecified part of unspecified bronchus or lung; J91.0 Malignant pleural effusion; K50.90 Crohn's disease, unspecified, without complications; E87.1 Hypo-osmolality and hyponatremia; E86.0 Dehydration; Z87.891 Personal history of nicotine dependence; J98.4 Other disorders of lung; R09.02 Hypoxemia; R06.89 Other abnormalities of breathing; J44.9 Chronic obstructive pulmonary disease, unspecified; D50.9 Iron deficiency anemia, unspecified; F41.9 Anxiety disorder, unspecified; F32.A Depression, unspecified
CPT/HCPCS: 71046; 80048; 80053; 81003; 81015; 83735; 84100; 84443; 85025; 85027; 87086; 93005; 94640; 96361; 96365; 96366; 96367; 96368; 96375; 97162; 99285

== ENCOUNTER 2024-01-27 17:43 | Inpatient (IN) | payer MEDICARE, OTHER, SELFPAY ==
[2024-01-27] VITALS (7 sets, daily range): BP systolic 135–165; BP diastolic 71–104; BMI 21.5
--- NOTE | 2024-01-27 14:48 | ED.GENMED ---
History of Present Illness
<Ryley Godoy PA-C - Last Filed: 01/27/24 17:07>
General
Chief Complaint: Breathing Problem
Source: patient and records
Time Seen by Provider: 01/27/24 14:37
Travel History
Have you had any contact with someone who has COVID-19?: No
Do you have any symptoms of coronavirus? Fever > 100 degrees, chills, cough, shortness of breath, sore throat, loss of taste or smell, muscle aches, or headache?: No
History of Present Illness
History of Present Illness:
74-year-old female with past medical history of non-small cell lung cancer, COPD, hypertension, hyperlipidemia (currently undergoing chemotherapy with last treatment being on January 15, has a chronic indwelling Pleurx catheter on the right which was
last drained this past and gets these drained once weekly) presenting to the emergency department via EMS for shortness of breath and a cough productive of a yellowish sputum. Patient denies any fevers, chills, rigors. She denies any
lower extremity edema, chest pain, palpitations, diaphoresis. Patient was recently admitted this facility for multiple electrolyte complications as well as previous pneumonia. She follows with [facility].
Past History
<Ryley Godoy PA-C - Last Filed: 01/27/24 17:07>
Past History
ED Past Medical History: Cancer, COPD, HTN, Seizures and Other (Crohn's disease, anxiety)
ED Past Surgical History: Bowel resection (For Crohn's disease with a subsequent colostomy), Cholecystectomy and Other (Partial lung lobectomy)
Social History
Tobacco: Former smoker
Alcohol: None
Drug: None
Personal:
Living: alone
Employment: Employed
Family History
Family History: Other (No significant)
Review of Systems
<Ryley Godoy PA-C - Last Filed: 01/27/24 17:07>
Review of Systems
All Other Systems: ROS reviewed and negative except as documented in HPI and ROS
Phy Exam
<Ryley Godoy PA-C - Last Filed: 01/27/24 17:07>
Physical Exam
Physical Exam:
GENERAL: Alert , tachypneic, appears uncomfortable but speaking full sentences
Head: Normocephalic atraumatic
EYE: conjunctiva clear
NECK: Supple
ENT: o/p clr, mmm.
CARDIAC: Borderline tachycardic rate and rhythm
LUNGS: Tachypneic with accessory muscle use, diminished lung sounds throughout the right lung with small crackles along the mid lung
NEUROLOGICAL: Alert and oriented
SKIN: Warm and dry, skin intact.
MUSCULOSKELETAL: well perfused. No edema
PSYCH: Normal and appropriate interaction.
Scores
<Ryley Godoy PA-C - Last Filed: 01/27/24 17:07>
Heart Failure Risk
Heart Failure Risk Score: Not Applicable
Heart Score for Chest Pain Patients
STEMI patient?: Not applicable
Withdrawal Assessment of Alcohol
Withdrawal Assessment Completed?: Not applicable
Course
<Ryley Godoy PA-C - Last Filed: 01/27/24 17:07>
Orders/Labs/Results
Orders:
Orders
01/27/24
Electrocardiogram (*1) Stat
Reason for Study: Chest Pain
01/27/24 14:45
CR Chest Portable - 1 View Urgent
Comment:
Reason For Exam: hypoxia, known NSCLC
Reason Study Needs to be Portable: Patient Unstable
Oxygen Mask - Non-rebreather [RESP] Urgent
01/27/24 14:57
Complete Blood Count/With Diff Urgent
Comprehensive Metabolic Panel Urgent
Magnesium Urgent
Manual Differential Urgent
NT-proBNP Urgent
Troponin I Urgent
01/27/24 14:58
CT Chest Pe Study Urgent
Comment:
Reason For Exam: known NSCLC. hypoxic
Ipratropium/Albuterol Sulfate [Duoneb] 3 ml INH R NOW STA
01/27/24 15:17
Cefepime HCl [Maxipime] 2,000 mg IV NOW STA
01/27/24 16:55
Heparin 4,300 units IV NOW STA
Pharmacy Request to Place See Dose Instructions PO NOW STA
Discontinue all Active Warfarin orders?: Yes
Nursing to Place Non Medication Order As Directed
Physician Order: PTT 6 hours after initial start of Heparin infusion
01/27/24 16:58
PTT Urgent
Comment: Obtain baseline before beginning heparin infusion if not already collected
01/27/24 17:00
Heparin 42749 Units/250 ml 25,000 units in 250 ml IV PER PROTOCOL
Weight to be used for heparin protocol in kilograms (kg):: 53.3
Protocol:: DVT/PE
PTT Goal Range to be used:: PTT 73 to 111 seconds
Order type:: Initial
INITIAL Infusion Dose (UNITS/KG/hr) & then follow protocol:: 18 units/kg/hr
Infusion Dose in UNITS/hr & then follow protocol (UNITS/hr):: 1,000
INFUSION RATE in mL/hr & then follow protocol (mL/hr):: 10
For DVT/PE algorithm, re-bolus for low PTT?: Yes
PTT less than or equal to 64 seconds:: Re-bolus 80 units/kg (max 10,000units). Increase by 200 units/hr
(+ 2mL/hr)
PTT 64.1 to 72.9 seconds:: Re-bolus 40 units/kg (max 5,000 units). Increase by 100 units/hr
(+ 1mL/hr)
PTT 73 to 111 seconds:: Target Range. No change in rate.
PTT 111.1 to 130.9 seconds:: Decrease rate by 100 units/hr (- 1 mL/hr)
PTT 131 to 199.9 seconds:: HOLD for 1 hr. Then decrease by 200 units/hr (- 2mL/hr)
PTT greater than or equal to 200 seconds:: HOLD for 2 hrs & Notify Provider. Then decrease by 200 units/hr
(- 2mL/hr)
Lab follow-up:: Each change, PTT q6h until 2 consecutive are therapeutic. Then
PTT daily.
Pharmacy Request to Place See Dose Instructions IV DIRECTED
Abnormal Lab Results
01/27/24
14:57
RBC 4.00 L 10^6/uL
(4.20-5.40)
Hgb 9.7 L g/dL
(12.0-16.0)
Hct 31.3 L %
(37.0-47.0)
MCV 78.3 L fL
(81.0-99.0)
MCH 24.3 L pg
(27.0-31.0)
MCHC 31.0 L g/dL
(33.0-37.0)
RDW 21.1 H %
(11.5-14.5)
Lymphocytes (Manual) 15 L %
(20-51)
Monocytes (Manual) 27 H %
(2-9)
Sodium 134 L mmol/L
(135-145)
Chloride 96 L mmol/L
(98-107)
Carbon Dioxide 32 H mmol/L
(22-30)
BUN 5 L mg/dl
(7-17)
Creatinine 0.4 L mg/dL
(0.6-1.0)
Glucose 106 H mg/dl
(70-99)
Magnesium 1.0 L mg/dl
(1.6-2.3)
Total Protein 5.7 L g/dl
(6.3-8.2)
Albumin 2.9 L g/dl
(3.5-5.0)
05/12/24 14:57
01/27/24 14:57
Vital Signs
Initial and Last Documented VS:
Initial Vital Signs
Pulse Ox
78
01/27/24 14:36
Last Documented Vital Signs
Temp Pulse Resp BP Pulse Ox
98.6 F 89 22 150/71 100
01/27/24 14:39 01/27/24 15:10 01/27/24 14:39 01/27/24 16:21 01/27/24 16:52
Manager Lan consulted with Physician
Manager Lan consulted with physician?: Yes
Name of Physician Consulted: Jose Manuel
<Víctor Richard MD - Last Filed: 01/27/24 17:08>
Orders/Labs/Results
Orders:
Orders
01/27/24
Electrocardiogram (*1) Stat
Reason for Study: Chest Pain
01/27/24 14:45
CR Chest Portable - 1 View Urgent
Comment:
Reason For Exam: hypoxia, known NSCLC
Reason Study Needs to be Portable: Patient Unstable
Oxygen Mask - Non-rebreather [RESP] Urgent
01/27/24 14:57
Complete Blood Count/With Diff Urgent
Comprehensive Metabolic Panel Urgent
Magnesium Urgent
Manual Differential Urgent
NT-proBNP Urgent
Troponin I Urgent
01/27/24 14:58
CT Chest Pe Study Urgent
Comment:
Reason For Exam: known NSCLC. hypoxic
Ipratropium/Albuterol Sulfate [Duoneb] 3 ml INH R NOW STA
01/27/24 15:17
Cefepime HCl [Maxipime] 2,000 mg IV NOW STA
01/27/24 16:55
Heparin 4,300 units IV NOW STA
Pharmacy Request to Place See Dose Instructions PO NOW STA
Discontinue all Active Warfarin orders?: Yes
Nursing to Place Non Medication Order As Directed
Physician Order: PTT 6 hours after initial start of Heparin infusion
01/27/24 16:58
PTT Urgent
Comment: Obtain baseline before beginning heparin infusion if not already collected
01/27/24 17:00
Heparin 59184 Units/250 ml 25,000 units in 250 ml IV PER PROTOCOL
Weight to be used for heparin protocol in kilograms (kg):: 53.3
Protocol:: DVT/PE
PTT Goal Range to be used:: PTT 73 to 111 seconds
Order type:: Initial
INITIAL Infusion Dose (UNITS/KG/hr) & then follow protocol:: 18 units/kg/hr
Infusion Dose in UNITS/hr & then follow protocol (UNITS/hr):: 1,000
INFUSION RATE in mL/hr & then follow protocol (mL/hr):: 10
For DVT/PE algorithm, re-bolus for low PTT?: Yes
PTT less than or equal to 64 seconds:: Re-bolus 80 units/kg (max 10,000units). Increase by 200 units/hr
(+ 2mL/hr)
PTT 64.1 to 72.9 seconds:: Re-bolus 40 units/kg (max 5,000 units). Increase by 100 units/hr
(+ 1mL/hr)
PTT 73 to 111 seconds:: Target Range. No change in rate.
PTT 111.1 to 130.9 seconds:: Decrease rate by 100 units/hr (- 1 mL/hr)
PTT 131 to 199.9 seconds:: HOLD for 1 hr. Then decrease by 200 units/hr (- 2mL/hr)
PTT greater than or equal to 200 seconds:: HOLD for 2 hrs & Notify Provider. Then decrease by 200 units/hr
(- 2mL/hr)
Lab follow-up:: Each change, PTT q6h until 2 consecutive are therapeutic. Then
PTT daily.
Pharmacy Request to Place See Dose Instructions IV DIRECTED
Abnormal Lab Results
01/27/24
14:57
RBC 4.00 L 10^6/uL
(4.20-5.40)
Hgb 9.7 L g/dL
(12.0-16.0)
Hct 31.3 L %
(37.0-47.0)
MCV 78.3 L fL
(81.0-99.0)
MCH 24.3 L pg
(27.0-31.0)
MCHC 31.0 L g/dL
(33.0-37.0)
RDW 21.1 H %
(11.5-14.5)
Lymphocytes (Manual) 15 L %
(20-51)
Monocytes (Manual) 27 H %
(2-9)
Sodium 134 L mmol/L
(135-145)
Chloride 96 L mmol/L
(98-107)
Carbon Dioxide 32 H mmol/L
(22-30)
BUN 5 L mg/dl
(7-17)
Creatinine 0.4 L mg/dL
(0.6-1.0)
Glucose 106 H mg/dl
(70-99)
Magnesium 1.0 L mg/dl
(1.6-2.3)
Total Protein 5.7 L g/dl
(6.3-8.2)
Albumin 2.9 L g/dl
(3.5-5.0)
01/27/24 14:57
01/27/24 14:57
Vital Signs
Initial and Last Documented VS:
Initial Vital Signs
Pulse Ox
78
01/27/24 14:36
Last Documented Vital Signs
Temp Pulse Resp BP Pulse Ox
98.6 F 89 22 150/71 100
01/27/24 14:39 01/27/24 15:10 01/27/24 14:39 01/27/24 16:21 01/27/24 16:52
<Ryley Godoy PA-C - Last Filed: 01/27/24 17:07>
MDM/Problems Addressed
Differential Diagnosis Includes:
Worsening pleural effusion, pneumonia, PE considered given known cancer, progression of patient's cancer
MDM/Problems Addressed:
74-year-old female presenting the emergency department via EMS for worsening shortness of breath over the last 24 hours. Found to be 81% on 3 L nasal cannula which patient states is her usual baseline for oxygen. She was placed on a nonrebreather
with good response to 99 to 100%. Patient has diminished lung sounds throughout on the right. She already has a known moderate-sized pleural effusion based off her last chest x-ray a couple of days ago. Obtained a stat portable chest x-ray today
which shows a continued right sided pleural effusion that appears mostly unchanged from previous. Will obtain a CTA of the chest to rule out PE. DuoNeb ordered for her shortness of breath. Patient needed.
Chronic conditions affecting care: COPD and Cancer
Acute Exacerbation and/or Progression of Chronic Illness: COPD and Cancer
<Ryley Godoy PA-C - Last Filed: 01/27/24 17:07>
*Radiology
Radiology exam reviewed: preliminary read by ED provider (Moderate right pleural effusion) and radiology read reviewed
*Pulse Oximetry
Patient hypoxic: yes
*EKG
Interpreted by ED Provider?: Yes
Comparison EKG: no changes
Heart Rate: 98
Rate: normal
Rhythm: sinus
[place]: normal axis
Ischemia: no ischemia
*Patient Service Associate Interpretation
Rate: normal
Rhythm: sinus
*Critical Care Note
Total Time (30-74mins, 75-104mins- exclusive of procedures): 30
comment:
Critical care statement: A total of 30 minutes of critical care time was provided for this patient. This includes management of unstable vital signs, evaluation of the patient at bedside, reviewing the patient's pertinent medical records, discussion
with consultants, review of old EKGs and review of pertinent medical records. This time with separate from time utilized to perform the aforementioned documented procedures
Data Reviewed
Review of Other/Old Records Reveals: Labs, Records and Discharge Summary
Source: patient and records
<Ryley Godoy PA-C - Last Filed: 01/27/24 17:07>
Patient Management
Discussion with other providers: Hospitalist
Escalation/DeEscalation of care consider admission/obs:
Patient CT shows a right lung pulmonary embolus with mild clot burden but no evidence for right heart strain. There is also noted pneumonia with small bilateral pleural effusions that are slightly progressed. We were able to wean patient down back
to her 3 L on nasal cannula oxygen remaining at 98%. Heparin was initiated due to the finding of pulmonary embolism. Patient to be admitted to the hospitalist service who is aware and accepts for continued evaluation and treatment.
ED Attending Note
<Ryley Godoy PA-C - Last Filed: 01/27/24 17:07>
-
Portions of this chart may have been created with voice recognition software.� Occasional wrong word or��sound alike� substitutions may have occurred due to the inherent limitations of voice recognition software.
<Víctor Richard MD - Last Filed: 01/27/24 17:08>
ED Attending Note
Patient seen and examined by attending physician: Yes
I performed the substantive portion of visit, reviewed & personally made and approve the management plan that is documented in note by myself or YOHANA.: Yes
ED Attending Note:
74-year-old female history of lung cancer on chronic oxygen therapy 3 L/day presents with increased shortness of breath. Symptoms became worse this morning. Hypoxic on arrival. Some cough. No fever. No pleuritic pain. No other complaints
GENERAL: Alert and oriented. Chronically ill-appearing
EYE: Orbits normal.
NECK: Supple
CARDIAC: Regular rate and rhythm without any obvious murmurs.
LUNGS: Mild tachypnea decreased breath sounds right base with mild basilar crackles. catheter right.
ABDOMEN: Soft, without focal tenderness or distention
NEUROLOGICAL: Alert and oriented , grossly non-focal
SKIN: Warm and dry
PSYCH: Normal and appropriate interaction.
Impression increase shortness of breath relatively sudden onset today. Large differential including pneumonia pneumothorax pleural effusion pulmonary emboli. Workup showed stable chest x-ray with loculated effusion. CT scan showed possible
pulmonary emboli. Anticoagulation admission for further care
Discharge Plan
Departure
Patient Disposition: Admit
Date of Disposition: 01/27/24
Time of Disposition: 16:24
Presentation/result/management discussed w/ accepting MD/DO: Hospitalist
Discharge Problem:
Pneumonia, Lung cancer, Pleural effusion
Prescriptions:
No Action
phenobarbital 64.8 MG tablet
64.8 mg PO QPM
tiotropium bromide [Spiriva with HandiHaler] 18 mcg Capsule, W/Inhalation Device
1 cap INHALATION R DAILY
metoprolol succinate [Toprol XL] 50 mg Tablet Extended Release 24 Hr
50 mg PO DAILY
sodium chloride 1,000 mg tablet,soluble
1,000 mg PO BID Qty: 60 0RF
ascorbic acid (vitamin C) [Vitamin C] 500 mg Tablet
500 mg PO DAILY
loratadine [Claritin] 10 mg Tablet
10 mg PO DAILY
fluticasone furoate-vilanterol [Breo Ellipta] 200-25 mcg/dose Blister With Device
1 inh INHALATION R DAILY
metoprolol succinate 25 mg Tablet Extended Release 24 Hr
25 mg PO QPM
lorazepam [Ativan] 1 mg tablet
1 mg PO BID
Avastin
1 dose IV Q3W
Patient Comments:
01/27/2024, per pt., she gets this infusion through [facility].
diphenoxylate-atropine 2.5-0.025 mg Tablet
1 - 2 tab PO QIDPRN PRN (Reason: diarrhea)
acetaminophen [Tylenol Extra Strength] 500 mg Tablet
1,000 mg PO BIDPRN PRN (Reason: mild pain)
calcitonin (salmon) 200 unit/actuation [place],Non-Aerosol
1 spray INTRANASAL (ALT) DAILY
Patient Comments:
01/27/2024, pt. forgets to take this med regularly.
cyanocobalamin (vitamin B-12) 1,000 mcg/mL Solution
1,000 mcg IM QMONTH
Patient Comments:
01/27/2024, last dose was end of December per pt.
folic acid 1 mg Tablet
1 mg PO DAILY
lisinopril 2.5 mg Tablet
2.5 mg PO DAILY
cyclosporine [Restasis] 0.05 % Dropperette
1 drp BOTH EYES Q12H
rosuvastatin 5 mg Tablet
5 mg PO QPM
cholecalciferol (vitamin D3) 1,250 mcg (50,000 unit) Capsule
1,250 mcg PO TU@0800
fluvoxamine 50 mg Tablet
50 mg PO BID Qty: 60 0RF
benzonatate 100 mg Capsule
200 mg PO TIDPRN PRN (Reason: Cough) Qty: 7 0RF
ondansetron HCl 4 mg Tablet
8 mg PO Q6HPRN PRN (Reason: Nausea) Qty: 30 0RF
oxycodone 5 mg Tablet
5 mg PO Q4H PRN (Reason: mild pain)
oxycodone 5 mg Tablet
10 mg PO Q4HPRN PRN (Reason: severe pain)
Mucinex
1 tab PO DAILY
Referrals:
UNKNOWN - PT NOT,INTERVIEWE [Family Provider] -
Interventions
Interventions:
*Risk Screen - Suicide Last Done: 01/27/24 14:36
*General Assessment Last Done: 01/27/24 14:36
*Neglect/Abuse Screening Last Done: 01/27/24 14:36
ED- Fall Risk Assessment Last Done: 01/27/24 15:13
*ED COVID-19 Vaccine History Last Done: 01/27/24 14:36
ED- Cardiac Assessment Last Done: 01/27/24 14:37
ED- Pulmonary Assessment Last Done: 01/27/24 14:37
Discharge Date and Time
Print Language: WOLOF
[2024-01-27] MEDS: DUONEB 3 ML INH ×2 (15:00→19:38)
[2024-01-27 15:11] LABS: Hematocrit 31.3 % (37.0-47.0); Hemoglobin 9.7 g/dL (12.0-16.0); Mean Corpuscular Hgb 24.3 pg (27.0-31.0); Mean Corpuscular Volume 78.3 fL (81.0-99.0); Mean Platelet Volume 9.5 fL (7.4-10.4); Platelet Count 201 10^3/uL (130-400); Red Cell Dist. Width 21.1 % (11.5-14.5); White Blood Cell Count 5.5 10^3/uL (4.8-10.8)
[2024-01-27 15:24] LABS: ALT (SGPT) 19 U/L (0-35); AST (SGOT) 36 U/L (14-36); Albumin 2.9 g/dl (3.5-5.0); Alkaline Phosphatase 125 U/L (38-126); Blood Urea Nitrogen 5 mg/dl (7-17); Calcium 8.8 mg/dl (8.4-10.2); Carbon Dioxide 32 mmol/L (22-30); Chloride 96 mmol/L (98-107); Estimated Creatinine Clearance 67 ml/min; Glucose 106 mg/dl (70-99); Potassium 3.9 mmol/L (3.5-5.1); Sodium 134 mmol/L (135-145); Total Bilirubin 0.3 mg/dl (0.2-1.3); Total Protein 5.7 g/dl (6.3-8.2); eGFR > 60.00
[2024-01-27] MEDS: MAXIPIME 2000 MG IV (15:33)
[2024-01-27 15:35] LABS: NT-proBNP 317 pg/ml; Troponin I < 0.012 ng/ml
[2024-01-27 15:46] LABS: Atypical Lymphocytes 2 %; Band Neutrophils 0 % (0-3); Eosinophils 1 % (0-6); Lymphocytes 15 % (20-51); Monocytes 27 % (2-9); Platelets Checked Yes; Segmented Neutrophils 55 % (42-75)
[2024-01-27 15:47] LABS: Normal RBC Morphology No
[2024-01-27 15:50] LABS: Macrocytosis 1+; Polychromasia Slight
[2024-01-27 15:51] LABS: Ovalocytes 2+; Total Cells Counted 100
[2024-01-27 15:52] LABS: Hypersegmented Neutrophil 2+
--- NOTE | 2024-01-27 16:27 | W.PN.UPDATE ---
Update Note
Progress Note Update
I saw and examined the patient.
The PA's Joan Aly's note was reviewed and I agree with the note.
Comment: 74 y/o M hx of non-small cell Lung CA, COPD, HTN, HLD, hx of indwelling Pleurx cath on right drained last last (once weekly at baseline) presents to ER for SOB. She reports yellowish cough, no fevers, no chest pain. She is on 3L at
baseline but 6L N[place] here.
CT imaging in ER initially concerning for PNA although normal WBC. procal pending. Later found to have R sided PE without heart strain.
IV Heparin was started.
Patient reports an appointment with [facility] this week to remove Pleurx catheter.
She was recently admitted for generalized weakness and discharged 4 days prior.
Physical Exam
GENERAL: AAOX3, frail appearing.
Head: Normocephalic atraumatic
EYE: conjunctiva clear
NECK: Supple, no TAYLOR
CARDIAC: tachycardic rate and rhythm
LUNGS: Tachypneic with accessory muscle use, diminished lung sounds throughout the right lung with small crackles along the mid lung
NEUROLOGICAL: Alert and oriented
SKIN: Warm and dry, skin intact.
MUSCULOSKELETAL: well perfused. No edema
PSYCH: Normal and appropriate interaction.
Plan:
will continue IV heparin protocol. Follow PTTs. Hematology/onc consult for AC recommendations in setting in active cancer.
Check procal although suspicion for PNA is low. If positive, will start Cefepime. Recent MRSA swab negative.
PT/OT
Dietary eval - add supplements
Rest of plan as per JAMAR Aly's plan.
--- NOTE | 2024-01-27 16:27 | HPS.HSE ---
Family Physician
-
Family Physician: INTERVIEWE UNKNOWN - PT NOT
Chief Complaint
-
Cough and Shortness of Breath
History of Present Illness
This is a 74 [id number] with a past medical history of non-small cell lung cancer, COPD, hypertension, hyperlipidemia, malignant right pleural effusion with Pleurx and chemo-induced pneumonitis, who presents today for acutely worsening
shortness of breathe and cough. She states both the cough and SOB have been intermittent for a while but they have become worse over the last few days since her most recent discharge from [facility] on January 22. She denies fever, chills,
headache, chest pain, diaphoresis, or lower extremity edema. She has been on 3L O2 since she developed chemo-induced pneumonitis. Upon arrival to the ED she was notable short of breath with pulse ox in the 80s requiring non-rebreather mask. Upon my
evaluation she is improved and now pulse is 99% on 6L via nasal cannula.
Medical History
Past Medical History
Past Medical History: Reports Other
Additional Past Medical History:
NSCLC with recurrent right pleural effusion and Pleurx catheter
Essential hypertension
Seizure disorder
Crohn's disease
Hyperlipidemia
Chronic obstructive pulmonary disease
Iron Deficiency Anemia
Anxiety / Depression
Chemo-Induced Pneumonitis
Past Surgical History: Reports Other
Additional Past Surgical History:
Right Lower Lobectomy
Subtotal Colectomy / Ostomy for Crohn's disease
Cholecystectomy
Pleurx Catheter Placement
Social History
Tobacco: Former Smoker
Alcohol: None
Drug: None
Family History
Family History: Other (Mother had uterine cancer, father had cancer of unknown kind both late in life)
Allergies / Home Medications
Allergies reflects when Allergies were last updated in [facility].
Home Medications with original date entered in [facility]
Allergy/Medication List:
Allergies
Allergy/AdvReac Type Severity Reaction Status Date / Time
acetaminophen [From Vicodin] Allergy Elevates Verified 01/25/24 09:32
ALT, AST
adagrasib [From Krazati] Allergy Unknown Verified 01/25/24 09:32
hydrocodone bitartrate Allergy Vomiting-'deathly Verified 01/25/24 09:32
[From Vicodin] sick in
stomach'
latex Allergy redness Verified 01/25/24 09:32
and
itching,
rash
meperidine HCl [From Demerol] Allergy Nausea / Verified 01/25/24 09:32
Vomiting
propoxyphene Allergy 'DARVOCET' Verified 01/25/24 09:32
[From Darvocet-N] PER
WRITTEN
ORDER FOR
03/24/19
Home Medications
phenobarbital 64.8 mg tablet 64.8 mg PO QPM Neurological Condition 03/12/19
tiotropium bromide 18 mcg capsule with inhalation device (Spiriva with HandiHaler) 1 cap inhalation R DAILY Lung/Breathing Issues 09/26/22
metoprolol succinate 50 mg tablet,extended release 24 hr (Toprol XL) 50 mg PO DAILY Heart Disease/Condition 09/17/23
sodium chloride 1,000 mg soluble tablet 1,000 mg PO BID Supplement #60 tabs 09/20/23
ascorbic acid (vitamin C) 500 mg tablet (Vitamin C) 500 mg PO DAILY Supplement 11/09/23
loratadine 10 mg tablet (Claritin) 10 mg PO DAILY Allergies 11/09/23
fluticasone furoate 200 mcg-vilanterol 25 mcg/dose inhalation powder (Breo Ellipta) 1 inh inhalation R DAILY Lung/Breathing Issues 11/22/23
metoprolol succinate 25 mg tablet,extended release 24 hr 25 mg PO QPM Heart Disease/Condition 12/25/23
lorazepam 1 mg tablet (Ativan) 1 mg PO BID 12/27/23
Avastin 1 dose IV Q3W Cancer 12/28/23
acetaminophen 500 mg tablet (Tylenol Extra Strength) 1,000 mg PO BIDPRN PRN mild pain 01/21/24
calcitonin (salmon) 200 unit/actuation nasal spray 1 spray intranasal (ALT) DAILY 01/21/24
cholecalciferol (vitamin D3) 1,250 mcg (50,000 unit) capsule 1,250 mcg PO TU@0800 01/21/24
cyanocobalamin (vitamin B-12) 1,000 mcg/mL injection solution 1,000 mcg IM QMONTH 01/21/24
cyclosporine 0.05 % eye drops in a dropperette (Restasis) 1 drp BOTH EYES Q12H 01/21/24
diphenoxylate-atropine 2.5 mg-0.025 mg tablet 1 - 2 tab PO QIDPRN PRN diarrhea 01/21/24
folic acid 1 mg tablet 1 mg PO DAILY 01/21/24
lisinopril 2.5 mg tablet 2.5 mg PO DAILY 01/21/24
rosuvastatin 5 mg tablet 5 mg PO QPM 01/21/24
benzonatate 100 mg capsule 200 mg (2 x 100 mg) PO TIDPRN PRN Cough #7 caps 01/23/24
fluvoxamine 50 mg tablet 50 mg PO BID #60 tabs 01/23/24
ondansetron HCl 4 mg tablet 8 mg (2 x 4 mg) PO Q6HPRN PRN Nausea #30 tabs 01/23/24
Mucinex 1 tab PO DAILY 01/27/24
oxycodone 5 mg tablet 5 mg PO Q4H PRN mild pain 01/27/24
oxycodone 5 mg tablet 10 mg PO Q4HPRN PRN severe pain 01/27/24
Review of Systems
-
A 12 point ROS was completed and negative except as noted: Yes
Constitutional: Denies Fever or Chills
Respiratory: Reports Cough and Trouble Breathing
Cardiac: Denies Chest Pain
Physical Exam
Vital Signs
Vital Signs
Temp Pulse Resp BP Pulse Ox
98.6 F 89 22 150/71 100
01/27/24 14:39 01/27/24 15:10 01/27/24 14:39 01/27/24 16:21 01/27/24 16:21
Physical Exam
General: Comfortable, Conversant and Other (Appears weak and frail)
HEENT: Anicteric, Moist mucous membranes and Oxygen (Nasal Cannula)
Respiratory: Rales (Right Base) and Non Labored Respirations
Cardiac: S1/S2 and Regular Rhythm
GI: Soft, Non Tender and Ostomy
Rectal: Deferred by Provider
Musculoskeletal: No Clubbing, No Cyanosis and No Edema
Skin: Warm and Dry
Neuro: Awake, Alert, Oriented and Nonfocal/grossly intact
Psych: Calm
Laboratory Results
-
01/27/24 14:57
01/27/24 14:57
Laboratory Results
Total Bilirubin 0.3 mg/dl (0.2-1.3) 01/27/24 14:57
AST 36 U/L (14-36) 01/27/24 14:57
ALT 19 U/L (0-35) 01/27/24 14:57
Alkaline Phosphatase 125 U/L (38-126) 01/27/24 14:57
Troponin I < 0.012 ng/ml 01/27/24 14:57
Data Reviewed
-
Diagnostic Radiology: Report Reviewed by me
CT Scan: Report Reviewed by me
Lab Data: Labs Reviewed by me
Impression/Plan
-
Acute on Chronic Hypoxic Respiratory Failure
-Continue supplemental oxygen
-Attempt to wean back to 2-3L via nasal cannula
Pulmonary Embolism, no evidence of right heart strain or hemodynamic instability
-Continue heparin drip
-Consult Hematology
Productive Cough
-CT scan shows worsening airspace disease, possible pneumonia vs malignancy
-Check Procalcitonin - If elevated start Cefepime
-Continue Mucinex
Hypomagnesemia
-Patient has difficultly tolerating oral replacement due to high output from ostomy
-Replace magnesium IV
-Recheck magnesium level in AM
NSCLC
Recurrent Malignant Right Pleural effusion and Pleurx catheter
-Last Chemotherapy January 15
-Pleurex catheter drained on January 23
COPD, no acute exacerbation
-Continue Pulmicort and DuoNeb in place of Breo
Essential Hypertension
-Continue Lisinopril and Toprol
Seizure Disorder
-Continue Phenobarbital
Crohn's Disease s/p Subtotal Colectomy with Ileostomy
-Monitor output
Hyperlipidemia
-Continue rosuvastatin
Chronic Hyponatremia
-Continue sodium tabs
-Continue fluid restriction
Anxiety / Depression
-Continue Fluvoxamine and Ativan
DVT proph: Heparin Drip
Code Status: Full Code
[2024-01-27 17:14] LABS: APTT 38.7 Sec (23.4-35.0)
[2024-01-27] MEDS: HEPARIN 4300 UNITS IV (17:29)
[2024-01-27] MEDS: HEPARIN 25000 UNITS/250 ML IV (17:30)
[2024-01-27] MEDS: MAGNESIUM SULFATE 100 IV (17:45)
[2024-01-27 18:21] LABS: Procalcitonin 0.11 ng/ml (0.0-0.25)
[2024-01-27] MEDS: PULMICORT 0.5 MG INH (19:38)
[2024-01-27] MEDS: ZOFRAN 8 MG PO (19:46)
[2024-01-27] MEDS: CRESTOR 5 MG PO (20:53)
[2024-01-27] MEDS: LUMINAL 64.7999999999999972 MG PO (20:53)
[2024-01-27] MEDS: TOPROL XL 25 MG PO (20:53)
[2024-01-27] MEDS: MUCINEX PO (20:53)
[2024-01-27] MEDS: ATIVAN 1 MG PO (20:53)
[2024-01-27] MEDS: LUVOX 50 MG PO (20:53)
[2024-01-27] MEDS: SODIUM CHLORIDE 1 GRAM PO (20:53)
[2024-01-28] VITALS (9 sets, daily range): BP systolic 99–131; BP diastolic 53–78; PULSE 100; O2SAT 97–98; BMI 21.5
[2024-01-28] MEDS: ROXICODONE 5 MG PO ×3 (00:01→14:32)
[2024-01-28 00:20] LABS: APTT 49.8 Sec (23.4-35.0)
[2024-01-28] MEDS: HEPARIN 4300 UNITS IV (00:32)
[2024-01-28] MEDS: ZOFRAN 8 MG PO ×3 (01:48→17:43)
[2024-01-28] MEDS: ROXICODONE 10 MG PO ×2 (03:05→19:06)
--- NOTE | 2024-01-28 05:53 | CON.ONC ---
Impression
Impression
Pulmonary embolus
Non-small cell lung cancer, metastatic, heavily treated
Pneumonitis from adagrasib
Malignant R effusion s/p Pleurx
COPD
Crohn's in remission
Anemia
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
Plan
Plan
Start full dose Eliquis at loading dose 10 mg BID x 1 week, then 5 mg BID.
Pt with mild clot burden, increased O2 requirement out of proportion to magnitude of clot, pulmonary infiltrates. Suspect recrudescence of pneumonitis. Start prednisone 40 mg daily.
Consider Pulm consult given underlying pneumonitis and COPD, increase O2 requirement.
Pt has been treated with multiple lines of therapy and has required frequent hospitalization. May benefit from goals of care discussion.
Thank you for consult, will follow along with you.
Patient History
History of Present Illness
74 yo woman with hx Crohn's, COPD, HTN, HLD, and metastatic lung cancer, initially underwent R lower lobectomy and RUL wedge resection followed by cisplatin/Alimta. She recurred in pleura and lung, treated then weight carbo/Taxol/Keytruda. D/C'd
09/08 due to progression and started on adagrasib which was then discontinued for pneumonitis and for which she continues on steroids. She started treatment with Avastin and Alimta 12/24/23. She recently tried to taper off steroids, but her symptoms
recurred, and her prednisone dose was increased back to 20 mg daily. She continues on this dose currently? She is transitioning Pulmonology care to provider in [place]. Her Pleurx catheter remains in place, draining only about 50 cc weekly.
There has been some consideration for Pleurx removal, but it would require holding her Avastin for a dose or 2 and last Avastin was 01/15. Patient with multiple hospitalizations and trips to ED over the last several months, most recently 01/20 - 01/22
when she was admitted for fatigue, nausea and dehydration 7 days after chemo.
Pt presented to ED 5/12 for acutely worsening shortness of breathe and cough. She states both the cough and SOB have been intermittent for a while but they have become worse over the last few days since her most recent discharge from [place]
[facility] on January 22. She denies fever, chills, headache, chest pain, diaphoresis, or lower extremity edema. She has been on 3L O2 since she developed chemo-induced pneumonitis. Upon arrival to the ED she was short of breath with pulse ox in the 80s
requiring non-rebreather mask, improved to 99% on 6L via nasal cannula. Chest CT shows R lung PE with mild clot burden and no evidence of R heart strain. Also noted are RML airspace disease concerning for pneumonia, R>L pleural effusion, mild LLL
consolidation, small pericardial effusion. We are consulted regarding optimal anticoagulant.
Past-Medical/Surgical History
PMHx:
Stage IIB (T3N0M0) adenocarcinoma, with recurrence in chest/lungs
History of Crohn's disease currently in remission status post Remicade x 10 yrs, Azulfidine and colectomy
Anxiety
Pneumonitis from adagrasib
COPD
HTN
Seizure d/o
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
PSHx:
R lower lobectomy and RUL wedge resection 2021
Bowel resection (For Crohn's disease with a subsequent colostomy)
Cholecystectomy
Social History
Tobacco: Former smoker
Alcohol: None
Drug: None
Personal:
Living: alone
Employment: Employed
Family History
Family History: Other (No significant)
Patient Medication
�Medication �Instructions �Recorded �Confirmed �Last Taken �Type
phenobarbital 64.8 mg tablet 64.8 mg PO QPM Neurological 03/12/19 01/27/24 01/26/24 History
Condition
tiotropium bromide 18 mcg capsule 1 cap inhalation R DAILY 09/26/22 01/27/24 01/26/24 History
with inhalation device (Spiriva Lung/Breathing Issues
with HandiHaler)
metoprolol succinate 50 mg 50 mg PO DAILY Heart 09/17/23 01/27/24 01/27/24 History
tablet,extended release 24 hr Disease/Condition
(Toprol XL)
sodium chloride 1,000 mg soluble 1,000 mg PO BID Supplement #60 tabs 09/20/23 01/27/24 01/26/24 Rx
tablet
ascorbic acid (vitamin C) 500 mg 500 mg PO DAILY Supplement 11/09/23 01/27/24 01/25/24 History
tablet (Vitamin C)
loratadine 10 mg tablet (Claritin) 10 mg PO DAILY Allergies 11/09/23 01/27/24 01/25/24 History
fluticasone furoate 200 1 inh inhalation R DAILY 11/22/23 01/27/24 01/26/24 History
mcg-vilanterol 25 mcg/dose Lung/Breathing Issues
inhalation powder (Breo Ellipta)
metoprolol succinate 25 mg 25 mg PO QPM Heart 12/25/23 01/27/24 01/26/24 History
tablet,extended release 24 hr Disease/Condition
lorazepam 1 mg tablet (Ativan) 1 mg PO BID 12/27/23 01/27/24 2 Days Ago History
~01/25/24
Avastin 1 dose IV Q3W Cancer 12/28/23 01/27/24 01/16/24 History
acetaminophen 500 mg tablet 1,000 mg PO BIDPRN PRN mild pain 01/21/24 01/27/24 2 Days Ago History
(Tylenol Extra Strength) ~01/25/24
calcitonin (salmon) 200 1 spray intranasal (ALT) DAILY 01/21/24 01/27/24 01/25/24 History
unit/actuation nasal spray
cholecalciferol (vitamin D3) 1,250 1,250 mcg PO TU@0800 01/21/24 01/27/24 01/22/24 History
mcg (50,000 unit) capsule
cyanocobalamin (vitamin B-12) 1,000 mcg IM QMONTH 01/21/24 01/27/24 01/08/24 History
1,000 mcg/mL injection solution
cyclosporine 0.05 % eye drops in a 1 drp BOTH EYES Q12H 01/21/24 01/27/24 01/26/24 History
dropperette (Restasis)
diphenoxylate-atropine 2.5 1 - 2 tab PO QIDPRN PRN diarrhea 01/21/24 01/27/24 01/27/24 History
mg-0.025 mg tablet 1 tablet
folic acid 1 mg tablet 1 mg PO DAILY 01/21/24 01/27/24 01/27/24 History
lisinopril 2.5 mg tablet 2.5 mg PO DAILY 01/21/24 01/27/24 01/27/24 History
rosuvastatin 5 mg tablet 5 mg PO QPM 01/21/24 01/27/24 01/26/24 History
benzonatate 100 mg capsule 200 mg (2 x 100 mg) PO TIDPRN PRN 01/23/24 01/27/24 01/26/24 Rx
Cough #7 caps
fluvoxamine 50 mg tablet 50 mg PO BID #60 tabs 01/23/24 01/27/24 01/27/24 Rx
ondansetron HCl 4 mg tablet 8 mg (2 x 4 mg) PO Q6HPRN PRN 01/23/24 01/27/24 01/27/24 Rx
Nausea #30 tabs
Mucinex 1 tab PO DAILY 01/27/24 01/27/24 01/26/24 History
oxycodone 5 mg tablet 5 mg PO Q4H PRN mild pain 01/27/24 01/27/24 01/27/24 History
oxycodone 5 mg tablet 10 mg PO Q4HPRN PRN severe pain 01/27/24 01/27/24 01/26/24 History
Active Medications
Generic Name Dose Route Start Last Admin
Trade Name Freq PRN Reason Stop Dose Admin
Acetaminophen 650 mg 01/27/24 18:29
Acetaminophen 325 Mg Tablet PO 02/24/24 18:28
Q4HPRN PRN
mild pain/ fever>100.5F
Albuterol/Ipratropium 3 ml 01/27/24 18:29
Ipratropium 0.5/Albuterol 3 Mg (3 Ml Ampul) INH
R Q4HPRN PRN
shortness of breath/wheeze
Protocol
Albuterol/Ipratropium 3 ml 01/27/24 20:00 01/27/24 19:38
Ipratropium 0.5/Albuterol 3 Mg (3 Ml Ampul) INH 3 ml
R QID KRISTEN Administration
Protocol
Budesonide 0.5 mg 01/27/24 20:00 01/27/24 19:38
Budesonide (Pulmicort Respules) 0.5 Mg/2 Ml INH 0.5 mg
R BID KRISTEN Administration
Protocol
Fluvoxamine Maleate 50 mg 01/27/24 20:00 01/27/24 20:53
Fluvoxamine 50 Mg Tablet PO 02/24/24 19:59 50 mg
BID KRISTEN Administration
Guaifenesin 600 mg 01/27/24 20:00 01/27/24 20:53
Guaifenesin 600 Mg Extended Release Tablet PO 02/24/24 19:59 Not Given
Q12 KRISTEN
Heparin Sodium 4,300 units 01/27/24 17:23 01/28/24 00:32
Heparin 80 Units/Kg Iv Rebolus IV 02/24/24 17:22 4,300 units
PRN PRN Administration
PTT < OR = 64 seconds
Heparin Sodium 2,100 units 01/27/24 17:24
Heparin 40 Units/Kg Iv Rebolus IV 02/24/24 17:23
PRN PRN
PTT = 64.1 to 72.9 seconds
Heparin Sodium 25,000 units in 250 mls @ 0 mls/hr 01/27/24 17:00 01/27/24 17:30
Heparin 49351 Units/250 Ml IV 250 mls
PER PROTOCOL KRISTEN Administration
Protocol
Per Protocol
Lisinopril 2.5 mg 01/28/24 08:00
Lisinopril 2.5 Mg Tablet PO 02/25/24 07:59
DAILY KRISTEN
Loratadine 10 mg 01/28/24 08:00
Loratadine 10 Mg Tablet PO 02/25/24 07:59
DAILY KRISTEN
Lorazepam 1 mg 01/27/24 20:00 01/27/24 20:53
Lorazepam 1 Mg Tablet PO 02/24/24 19:59 1 mg
BID KRISTEN Administration
Metoprolol Succinate 25 mg 01/27/24 18:29 01/27/24 20:53
Metoprolol 25 Mg Extended Release Tablet PO 02/24/24 18:28 25 mg
QPM KRISTEN Administration
Metoprolol Succinate 50 mg 01/28/24 08:00
Metoprolol 50 Mg Extended Release Tablet PO 02/25/24 07:59
DAILY KRISTEN
Ondansetron HCl 8 mg 01/27/24 19:09 01/28/24 01:48
Ondansetron 4 Mg Tablet PO 02/24/24 19:08 8 mg
Q6HPRN PRN Administration
Nausea
Oxycodone HCl 5 mg 01/27/24 18:29 01/28/24 00:01
Oxycodone 5 Mg Regular Release Tablet PO 02/10/24 18:28 5 mg
Q4H PRN Administration
mild pain
Oxycodone HCl 10 mg 01/27/24 18:29 01/28/24 03:05
Oxycodone 5 Mg Regular Release Tablet PO 02/10/24 18:28 10 mg
Q4HPRN PRN Administration
severe pain
Phenobarbital Sodium 64.8 mg 01/27/24 19:00 01/27/24 20:53
Phenobarbital 32.4 Mg Tablet PO 02/24/24 18:59 64.8 mg
QPM KRISTEN Administration
Rosuvastatin Calcium 5 mg 01/27/24 18:29 01/27/24 20:53
Rosuvastatin (Crestor) 5 Mg Tablet PO 02/24/24 18:28 5 mg
QPM KRISTEN Administration
Sodium Chloride 1 gram 01/27/24 20:00 01/27/24 20:53
Sodium Chloride 1 Gram Tablet PO 02/24/24 19:59 1 gram
BID KRISTEN Administration
Sodium Chloride 0 flush 01/27/24 19:00
Sodium Chloride 0.9% (Flush) Syringe IV 02/24/24 18:59
PER PROTOCOL KRISTEN
Review of Systems
-
History Source: Patient
All Other Systems: Reviewed and Negative
Physical Exam
-
General: Appears Chronically Ill
HEENT: Moist Mucous Membranes; Negative Jaundice
Cardiology: Normal Sinus Rhythm and S1
Pulmonary: Other (Diminished breath sounds R lung)
GI: Soft and Normal Bowel Sounds
Musculoskeletal: No Clubbing and No Cyanosis
Extremities: No C/C/E
Neurology: Non Focal and No Lateralizing Symptoms
Skin: Warm and Dry
Hematologic / Lymphatic: No Lymphadenopathy
Psych: Calm, Intact Judgement/Insight and Depressed
Labs
Lab Results
WBC 5.5 10^3/uL (4.8-10.8) 01/27/24 14:57
RBC 4.00 10^6/uL (4.20-5.40) L 01/27/24 14:57
Hgb 9.7 g/dL (12.0-16.0) L 01/27/24 14:57
Hct 31.3 % (37.0-47.0) L 01/27/24 14:57
MCV 78.3 fL (81.0-99.0) L 01/27/24 14:57
MCH 24.3 pg (27.0-31.0) L 01/27/24 14:57
MCHC 31.0 g/dL (33.0-37.0) L 01/27/24 14:57
RDW 21.1 % (11.5-14.5) H 01/27/24 14:57
Plt Count 201 10^3/uL (130-400) 01/27/24 14:57
MPV 9.5 fL (7.4-10.4) 01/27/24 14:57
Creatinine 0.4 mg/dL (0.6-1.0) L 01/27/24 14:57
Vital Signs
Vital Signs
Temp Pulse Resp BP Pulse Ox
98 F 102 19 121/77 97
01/28/24 03:10 01/28/24 03:10 01/28/24 03:10 01/28/24 03:10 01/28/24 03:10
[2024-01-28 07:26] LABS: Hematocrit 30.1 % (37.0-47.0); Hemoglobin 9.1 g/dL (12.0-16.0); Mean Corp Hgb Conc. 30.2 g/dL (33.0-37.0); Mean Corpuscular Hgb 24.2 pg (27.0-31.0); Mean Corpuscular Volume 80.1 fL (81.0-99.0); Mean Platelet Volume 10.4 fL (7.4-10.4); Platelet Count 235 10^3/uL (130-400); Red Blood Cell Count 3.76 10^6/uL (4.20-5.40); Red Cell Dist. Width 21.4 % (11.5-14.5); White Blood Cell Count 5.3 10^3/uL (4.8-10.8)
[2024-01-28] MEDS: DUONEB 3 ML INH ×4 (07:33→18:09)
[2024-01-28] MEDS: PULMICORT 0.5 MG INH ×2 (07:34→18:09)
[2024-01-28 07:42] LABS: APTT 113.5 Sec (23.4-35.0)
[2024-01-28] MEDS: MUCINEX PO (08:04)
[2024-01-28] MEDS: LUVOX 50 MG PO ×2 (08:04→20:40)
[2024-01-28] MEDS: ATIVAN 1 MG PO (08:04)
[2024-01-28] MEDS: TOPROL XL 50 MG PO (08:05)
[2024-01-28] MEDS: SODIUM CHLORIDE 1 GRAM PO ×2 (08:05→20:40)
[2024-01-28] MEDS: CLARITIN 10 MG PO (08:05)
[2024-01-28] MEDS: ZESTRIL PO (08:06)
[2024-01-28 08:08] LABS: Blood Urea Nitrogen 5 mg/dl (7-17); Calcium 8.6 mg/dl (8.4-10.2); Carbon Dioxide 31 mmol/L (22-30); Chloride 96 mmol/L (98-107); Estimated Creatinine Clearance 67 ml/min; Glucose 101 mg/dl (70-99); Magnesium 1.8 mg/dl (1.6-2.3); Potassium 3.5 mmol/L (3.5-5.1); Sodium 132 mmol/L (135-145); eGFR > 60.00
--- NOTE | 2024-01-28 11:05 | W.PN.HOSP.TC ---
Today's Communication/Plan
-
check copay for eliquis
pulmo/onco evaluation
wean off o2 as possible
PT/OT eval
Assessment / Plan
Assessment / Plan
Acute on Chronic Hypoxic Respiratory Failure
-Continue supplemental oxygen
-Attempt to wean back to 2-3L via nasal cannula
Pulmonary Embolism, no evidence of right heart strain or hemodynamic instability
-CT chest images reviewed
-Continue heparin drip, will try to switch to eliquis at discharge.
-high risk for recurrence with active malignancy
-Hematology/oncology consulted for help as well.
NSCLC
Recurrent Malignant Right Pleural effusion and Pleurx catheter
-Last Chemotherapy January 15
-Pleurex catheter drained on January 23
-On Alimta/Avastin, primary oncologist at [facility]
Productive Cough
-CT scan shows worsening airspace disease, possible pneumonia vs malignancy
-Procal 0.11, no fever.
-Continue Mucinex
-Got one dose cefepime in ER, monitor off abx.
Hypomagnesemia
- replaced
COPD, no acute exacerbation
-Continue Pulmicort and DuoNeb in place of Breo
Essential Hypertension
-Continue Lisinopril and Toprol
Seizure Disorder
-Continue Phenobarbital
Crohn's Disease s/p Subtotal Colectomy with Ileostomy
-Monitor output
Hyperlipidemia
-Continue rosuvastatin
Chronic Hyponatremia
-Continue sodium tabs
-Continue fluid restriction
Anxiety / Depression
-Continue Fluvoxamine and Ativan
DVT proph: Heparin Drip
Code Status: Full Code
Anticipated Discharge: Within 24 hours
Subjective/Interval History
-
Date of Service: January 28, 2024
patient sitting comfortably in chair
remains on o2 5L through NC
patient have shortness breath with activity,
Objective Data
-
Labs:
Laboratory Results
01/27/24 01/28/24 01/28/24
23:48 06:38 14:00
WBC 5.3
Hgb 9.1 L
Hct 30.1 L
Plt Count 235
APTT 49.8 H 113.5 H Pending
Sodium 132 L
Potassium 3.5
Chloride 96 L
Carbon Dioxide 31 H
BUN 5 L
Creatinine 0.4 L
Glucose 101 H
Calcium 8.6
Vital Signs:
Vital Signs
Temp Pulse Resp BP Pulse Ox
98.5 F 98 16 113/71 95
01/28/24 07:00 01/28/24 07:39 01/28/24 07:39 01/28/24 08:06 01/28/24 07:39
I&O
01/27/24 01/28/24 01/29/24
06:59 06:59 06:59
Intake Total 480 / 480
Output Total 500 / 500
Balance -20 / -20
Review of Systems
-
Respiratory: Reports Trouble Breathing; Denies Cough or Hemoptysis
Cardiac: Reports No Symptoms
Physical Exam
-
General: No Apparent Distress, Comfortable and Cachectic
HEENT: Oxygen (5 L NC)
Respiratory: Clear to Auscultation; Negative Wheezes
Cardiac: Regular Rhythm and S1/S2; Negative Murmur
GI: Soft, Nontender and Nondistended
Musculoskeletal: No Edema
Neuro: Awake, Alert, Oriented and No Motor Deficits
--- NOTE | 2024-01-28 12:15 | CON.PUL ---
Consultation
Consultation Request
Date/Time Consultation Requested: 01/28/24
Date/Time Consultation Performed: 01/28/24
Performing Provider: Mark
Reason for Consultation: Lung cancer history, new PE
Medical History
-
History of Present Illness:
74 [id number] with a past medical history of non-small cell lung cancer, COPD, hypertension, hyperlipidemia, malignant right pleural effusion with Pleurx and chemo-induced pneumonitis, who presents to ER today for acute on chronic worsening
shortness of breathe and cough. She states both the cough and SOB have been intermittent for a while but they have become worse over the last few days since her most recent discharge from [facility] on January 22. She has been on 3L O2 since
she developed chemo-induced pneumonitis.
CTA showing new PE, placed on IV heparin.
Past Medical History
Past Medical History: Other (see list below)
Social History
Tobacco: Former Smoker
Alcohol: None
Drug: None
Family History
Family History: Reviewed & Not Pertinent
Allergies / Home Medications
Allergies
Allergy/AdvReac Type Severity Reaction Status Date / Time
acetaminophen [From Vicodin] Allergy Elevates Verified 01/25/24 09:32
ALT, AST
adagrasib [From Krazati] Allergy Unknown Verified 01/25/24 09:32
hydrocodone bitartrate Allergy Vomiting-'deathly Verified 01/25/24 09:32
[From Vicodin] sick in
stomach'
latex Allergy redness Verified 01/25/24 09:32
and
itching,
rash
meperidine HCl [From Demerol] Allergy Nausea / Verified 01/25/24 09:32
Vomiting
propoxyphene Allergy 'DARVOCET' Verified 01/25/24 09:32
[From Darvocet-N] PER
WRITTEN
ORDER FOR
03/24/19
Home Medications
�Medication �Instructions �Recorded �Confirmed �Last Taken �Type
phenobarbital 64.8 mg tablet 64.8 mg PO QPM Neurological 03/12/19 01/27/24 01/26/24 History
Condition
tiotropium bromide 18 mcg capsule 1 cap inhalation R DAILY 09/26/22 01/27/24 01/26/24 History
with inhalation device (Spiriva Lung/Breathing Issues
with [employer])
metoprolol succinate 50 mg 50 mg PO DAILY Heart 09/17/23 01/27/24 01/27/24 History
tablet,extended release 24 hr Disease/Condition
(Toprol XL)
sodium chloride 1,000 mg soluble 1,000 mg PO BID Supplement #60 tabs 09/20/23 01/27/24 01/26/24 Rx
tablet
ascorbic acid (vitamin C) 500 mg 500 mg PO DAILY Supplement 11/09/23 01/27/24 01/25/24 History
tablet (Vitamin C)
loratadine 10 mg tablet (Claritin) 10 mg PO DAILY Allergies 11/09/23 01/27/24 01/25/24 History
fluticasone furoate 200 1 inh inhalation R DAILY 11/22/23 01/27/24 01/26/24 History
mcg-vilanterol 25 mcg/dose Lung/Breathing Issues
inhalation powder (Breo Ellipta)
metoprolol succinate 25 mg 25 mg PO QPM Heart 12/25/23 01/27/24 01/26/24 History
tablet,extended release 24 hr Disease/Condition
lorazepam 1 mg tablet (Ativan) 1 mg PO BID Mental Health/Anxiety 12/27/23 01/27/24 2 Days Ago History
~01/25/24
Avastin 1 dose IV Q3W Cancer 12/28/23 01/27/24 01/16/24 History
acetaminophen 500 mg tablet 1,000 mg PO BIDPRN PRN mild pain 01/21/24 01/27/24 2 Days Ago History
(Tylenol Extra Strength) ~01/25/24
calcitonin (salmon) 200 1 spray intranasal (ALT) DAILY 01/21/24 01/27/24 01/25/24 History
unit/actuation nasal spray RENAL
cholecalciferol (vitamin D3) 1,250 1,250 mcg PO TU@0800 Supplement 01/21/24 01/27/24 01/22/24 History
mcg (50,000 unit) capsule
cyanocobalamin (vitamin B-12) 1,000 mcg IM QMONTH Supplement 01/21/24 01/27/24 01/08/24 History
1,000 mcg/mL injection solution
cyclosporine 0.05 % eye drops in a 1 drp BOTH EYES Q12H Eye Condition 01/21/24 01/27/24 01/26/24 History
dropperette (Restasis)
diphenoxylate-atropine 2.5 1 - 2 tab PO QIDPRN PRN diarrhea 01/21/24 01/27/24 01/27/24 History
mg-0.025 mg tablet 1 tablet
folic acid 1 mg tablet 1 mg PO DAILY Supplement 01/21/24 01/27/24 01/27/24 History
lisinopril 2.5 mg tablet 2.5 mg PO DAILY Blood Pressure 01/21/24 01/27/24 01/27/24 History
rosuvastatin 5 mg tablet 5 mg PO QPM High Cholesterol 01/21/24 01/27/24 01/26/24 History
benzonatate 100 mg capsule 200 mg (2 x 100 mg) PO TIDPRN PRN 01/23/24 01/27/24 01/26/24 Rx
Cough #7 caps
fluvoxamine 50 mg tablet 50 mg PO BID #60 tabs 01/23/24 01/27/24 01/27/24 Rx
ondansetron HCl 4 mg tablet 8 mg (2 x 4 mg) PO Q6HPRN PRN 01/23/24 01/27/24 01/27/24 Rx
Nausea #30 tabs
Mucinex 1 tab PO DAILY Congestion 01/27/24 01/27/24 01/26/24 History
oxycodone 5 mg tablet 5 mg PO Q4H PRN mild pain 01/27/24 01/27/24 01/27/24 History
oxycodone 5 mg tablet 10 mg PO Q4HPRN PRN severe pain 01/27/24 01/27/24 01/26/24 History
Review of Systems
-
History Source: Patient
All other systems: Negative unless noted
Vitals / Labs / Diagnostic Testing
Vital Signs
Temp Pulse Resp BP Pulse Ox
98.3 F 96 16 99/69 100
01/28/24 11:00 01/28/24 11:26 01/28/24 11:26 01/28/24 11:00 01/28/24 11:26
Lab Data
01/28/24 06:38
01/28/24 06:38
Laboratory Results
01/27/24 01/27/24 01/28/24
16:58 23:48 06:38
APTT 38.7 H 49.8 H 113.5 H
Diagnostic Testing:
Physical Exam
-
HEENT: Normocephalic, Anicteric and Moist Mucous Membranes
Cardiovascular: S1/S2 and Regular Rhythm
Respiratory: Rales (overall decreased on R), Non-Labored Respirations and Other (pleurex R)
GI: Soft, Non Distended and Non Tender
Neurology: Awake, Alert, Oriented, AO x 3 and No Motor Deficits
Skin: Warm and Dry
General: Comfortable and Other (thin appearing)
Assessment
-
74 [id number] with a past medical history of non-small cell lung cancer, COPD, hypertension, hyperlipidemia, malignant right pleural effusion with Pleurx and chemo-induced pneumonitis, who presents to ER today for acute on chronic worsening
shortness of breathe and cough. She has been on home O2 since she developed chemo-induced pneumonitis. CTA showing new PE, placed on IV heparin. We are consulted for eval.
New R lobar PE
Acute on chronic SOB
Recurrent malignant effusion s/p pleurx at [place]
History of metastatic NSCLC
Hyponatremia, mild
Metabolic alkalosis
Conditions present [employer]
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
Hypertension
Seizure disorder
COPD
Anxiety/Depressive disorder
Osteoarthritis
Ruptured gallbladder and poss stones in bile duct s/p Cholecystectomy 1975
Pneumonia(2015)
Hyponatremia
Adenocarcinoma RLL, RUL/NSCLC, known to [place] s/p Right lower lobectomy (08/22/2022)
Recurrent malignant pleural effusions s/p pleurx R
Hay Fever
Appendectomy(1970)
Delayed closure of abdominal wounds (1970)
Partial Small Bowel Resection(2014)
Facelift 2 surgeries back to back (03/25/19)
Bilat eye lift - Sep 2020
Cataract-lens implants January 2021
Plan
Hypoxemia noted on arrival, she has history of home O2 use
6MWT obtained on last visit, showing need of 1L with exertion, she is 92% on RA
Will need to reassess her O2 needs prior to discharge
Prior history of lung disease is noted including COPD, NSCLC, malignant pleural effusion
Recurrent right pleural effusion status post Pleurx catheter.
This was placed by Dr. Gray at [place] in April 2023.
Draining once a week of light red fluid 50 cc
She would like this removed but we will need to discuss with [place]�
New lobar PE noted, placed on IV heparin
Eventual transition to OAC per heme, known to [place]
CXR/CT imaging reviewed
COPD- Follows at [facility], Dr. Mccabe
Maintained on Breo and Spiriva/Levalbuterol as needed
Continue with current regimen
Madi �07/31/22 FEV1= �1.33,�FEV1/FVC= �0.63
Cough noted, productive
We discussed airway clearance which I will add: vest/acapella
Mucinex, nebs
Sputum culture negative 01/24
She is continued on PO prednisone for potential pneumonitis
Heme following
ECHO results reviewed from prior, stable function
Mild clot burden, no evidence of RHS
We will follow
Diagnostic Data
CT chest 01/27/24- New findings suggesting a right lung pulmonary embolus (distal right interlobar artery). Mild clot burden. No evidence of right heart strain. Moderate right upper lobe and right lower lobe as well as right middle lobe airspace
disease concerning for pneumonia. Progressed. Underlying masses not excluded. Small bilateral pleural effusions, right larger than left. Progressed. Mild left lower lobe consolidation probably atelectasis. Findings suggesting a spiculated left lower
lobe pulmonary nodule. Small pericardial effusion. Progressed. Right-sided chest tube.
12/30/23- 1. No evidence of pulmonary embolism.
2. Mild pulmonary interstitial edema.
3. Scattered bilateral areas of parenchymal consolidation most in keeping with pneumonia. Recommend continued imaging after treatment to rule out underlying neoplasm.
4. Chronic loculated right pleural effusion with drainage catheter in place.
ECHO 09/18/23- . Left ventricle: Normal size and function with an estimated ejection fraction of 60-65% by volumetric assessment
2. Right ventricle: Normal
3. Atria: Normal
4. Mitral valve: Trace mitral regurgitation
5. Aortic valve: Mild aortic insufficiency
6. Tricuspid valve: Mild tricuspid regurgitation. Mild to moderate pulmonary hypertension with estimated pulmonary artery systolic pressures of 47-52 mmHg
7. When compared to the most recent echocardiogram from 04/18/2023 there has been no significant change
�Last Spirometry� FEV1= �1.33,�FEV1/FVC= �0.63,�COPD Symptoms: �Dyspnea.�
������ 07/31/22.
Total time spent on patient: 75 mins on extensive review of records/outpatient notes.
[2024-01-28 14:09] LABS: APTT 121.4 Sec (23.4-35.0)
[2024-01-28] MEDS: DELTASONE 40 MG PO (14:32)
[2024-01-28] MEDS: PROTONIX 40 MG PO (14:32)
--- NOTE | 2024-01-28 16:39 | CM ---
Alert awake oriented patient who lives alone in a 3 story home with 2 step to enter and 10 steps to bed room. She is assisted in all activities of daily living.Family members are her care givers and assist her. Offered VN she wants [facility] at home
resumed.
No SNF/[facility] hx
Pharmacy [place]
PCP Dr Cortez
PLAN Home with [facility] at home if accepted
[2024-01-28] MEDS: TOPROL XL 25 MG PO (17:43)
[2024-01-28] MEDS: CRESTOR 5 MG PO (17:43)
[2024-01-28] MEDS: LUMINAL 64.7999999999999972 MG PO (17:43)
[2024-01-28] MEDS: MUCINEX 600 MG PO ×2 (17:44→20:39)
[2024-01-28] MEDS: HEPARIN 25000 UNITS/250 ML IV (19:10)
[2024-01-28 21:11] LABS: APTT 85.6 Sec (23.4-35.0)
[2024-01-28] MEDS: ATIVAN PO (22:49)
[2024-01-29] VITALS (9 sets, daily range): BP systolic 118–143; BP diastolic 64–79; PULSE 99; O2SAT 94
[2024-01-29] MEDS: ROXICODONE 10 MG PO ×2 (02:14→23:35)
[2024-01-29] MEDS: ZOFRAN 8 MG PO ×3 (02:16→23:20)
[2024-01-29 03:47] LABS: APTT 89.4 Sec (23.4-35.0)
[2024-01-29] MEDS: DUONEB 3 ML INH ×4 (07:27→19:26)
[2024-01-29] MEDS: PULMICORT 0.5 MG INH ×2 (07:27→19:26)
[2024-01-29 07:28] LABS: APTT 81.4 Sec (23.4-35.0)
[2024-01-29] MEDS: TOPROL XL 50 MG PO (08:12)
[2024-01-29] MEDS: SODIUM CHLORIDE 1 GRAM PO ×2 (08:12→19:19)
[2024-01-29] MEDS: ZESTRIL 2.5 MG PO (08:13)
[2024-01-29] MEDS: PROTONIX 40 MG PO (08:13)
[2024-01-29] MEDS: LUVOX 50 MG PO ×2 (08:13→19:18)
[2024-01-29] MEDS: ATIVAN 1 MG PO ×2 (08:13→19:18)
[2024-01-29] MEDS: CLARITIN 10 MG PO (08:13)
[2024-01-29] MEDS: MUCINEX 600 MG PO ×2 (08:14→19:18)
[2024-01-29] MEDS: DELTASONE 40 MG PO (08:14)
[2024-01-29] MEDS: FOLVITE 1 MG PO (08:58)
[2024-01-29] MEDS: ELIQUIS 10 MG PO ×2 (08:58→19:18)
[2024-01-29 10:20] LABS: Blood Urea Nitrogen 12 mg/dl (7-17); Calcium 8.6 mg/dl (8.4-10.2); Carbon Dioxide 31 mmol/L (22-30); Chloride 95 mmol/L (98-107); Estimated Creatinine Clearance 67 ml/min; Glucose 112 mg/dl (70-99); Magnesium 1.4 mg/dl (1.6-2.3); Potassium 3.6 mmol/L (3.5-5.1); Sodium 131 mmol/L (135-145); eGFR > 60.00
[2024-01-29] MEDS: VITAMIN D3 (cholecalciferol) 1250 MCG PO (10:21)
--- NOTE | 2024-01-29 11:16 | W.PN.PUL3 ---
Today's Communication / Plan
-
Transitioned to OAC, can continue per heme recs, off IV heparin
Encouraged ambulation/IS
Home O2 eval
Outpatient pulmonary FU recommended
Discharge planning per team
Assessment
-
74 [id number] with a past medical history of non-small cell lung cancer, COPD, hypertension, hyperlipidemia, malignant right pleural effusion with Pleurx and chemo-induced pneumonitis, who presents to ER today for acute on chronic worsening
shortness of breathe and cough. She has been on home O2 since she developed chemo-induced pneumonitis. CTA showing new PE, placed on IV heparin. We are consulted for eval.
New R lobar PE
Acute on chronic SOB
Recurrent malignant effusion s/p pleurx at [place]
History of metastatic NSCLC
Hyponatremia, mild
Metabolic alkalosis
Conditions present [employer]
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
Hypertension
Seizure disorder
COPD
Anxiety/Depressive disorder
Osteoarthritis
Ruptured gallbladder and poss stones in bile duct s/p Cholecystectomy 1975
Pneumonia(2015)
Hyponatremia
Adenocarcinoma RLL, RUL/NSCLC, known to [place] s/p Right lower lobectomy (08/22/2022)
Recurrent malignant pleural effusions s/p pleurx R
Hay Fever
Appendectomy(1970)
Delayed closure of abdominal wounds (1970)
Partial Small Bowel Resection(2014)
Facelift 2 surgeries back to back (03/25/19)
Bilat eye lift - Sep 2020
Cataract-lens implants January 2021
Plan
Hypoxemia noted on arrival, she has history of home O2 use
6MWT obtained on last visit, showing need of 1L with exertion, she is 92% on RA
Will need to reassess her O2 needs prior to discharge
Prior history of lung disease is noted including COPD, NSCLC, malignant pleural effusion
Recurrent right pleural effusion status post Pleurx catheter.
This was placed by Dr. Gray at [place] in April 2023.
Draining once a week of light red fluid 50 cc
She would like this removed but we will need to discuss with [place]�
New lobar PE noted, placed on IV heparin, transitioned to OAC
Known to [place]
CXR/CT imaging reviewed
COPD- Follows at [facility], Dr. Mccabe
Maintained on Breo and Spiriva/Levalbuterol as needed
Continue with current regimen
Madi �07/31/22 FEV1= �1.33,�FEV1/FVC= �0.63
Cough noted, productive
We discussed airway clearance which I will add: vest/acapella
Mucinex, nebs
Sputum culture negative 01/24
She is continued on PO prednisone for potential pneumonitis
Heme following
ECHO results reviewed from prior, stable function
Mild clot burden, no evidence of RHS
Further OP FU with Dr Cantrell
Discharge planning per team
Diagnostic Data
CT chest 01/27/24- New findings suggesting a right lung pulmonary embolus (distal right interlobar artery). Mild clot burden. No evidence of right heart strain. Moderate right upper lobe and right lower lobe as well as right middle lobe airspace
disease concerning for pneumonia. Progressed. Underlying masses not excluded. Small bilateral pleural effusions, right larger than left. Progressed. Mild left lower lobe consolidation probably atelectasis. Findings suggesting a spiculated left lower
lobe pulmonary nodule. Small pericardial effusion. Progressed. Right-sided chest tube.
12/30/23- . No evidence of pulmonary embolism.
2. Mild pulmonary interstitial edema.
3. Scattered bilateral areas of parenchymal consolidation most in keeping with pneumonia. Recommend continued imaging after treatment to rule out underlying neoplasm.
4. Chronic loculated right pleural effusion with drainage catheter in place.
ECHO 09/18/23- . Left ventricle: Normal size and function with an estimated ejection fraction of 60-65% by volumetric assessment
2. Right ventricle: Normal
3. Atria: Normal
4. Mitral valve: Trace mitral regurgitation
5. Aortic valve: Mild aortic insufficiency
6. Tricuspid valve: Mild tricuspid regurgitation. Mild to moderate pulmonary hypertension with estimated pulmonary artery systolic pressures of 47-52 mmHg
7. When compared to the most recent echocardiogram from 04/18/2023 there has been no significant change
�Last Spirometry� FEV1= �1.33,�FEV1/FVC= �0.63,�COPD Symptoms: �Dyspnea.�
������ 07/31/22.
Total time spent on patient includes extensive review of records/outpatient notes.
Subjective Data
-
Date of Service:
Date of Service: January 29, 2024
Chief Complaint: Pulmonary Follow Up
Subjective:
no new events
feels SOB with exertion
off IV heparin
Objective Data
Data Reviewed
Vital Signs / I&O / Oxygen:
Vital Signs
Temp Pulse Resp BP Pulse Ox
97.7 F 86 20 143/77 96
01/29/24 07:00 01/29/24 11:13 01/29/24 11:13 01/29/24 08:36 01/29/24 11:13
Intake and Output
01/28/24 01/29/24 01/30/24
06:59 06:59 06:59
Intake Total 480 / 480 0 / 1740
Output Total 500 / 500
Balance -20 / -20 1740 / 1740
SaO2 96
Nasal Cannula flow liters per 4
minute
Physical Exam
General: Comfortable and Other (NAD, thin appearing)
HEENT: Normocephalic, Anicteric and Moist Mucous Membranes
Cardiovascular: S1-S2 and Regular Rhythm
Respiratory: Crackles, Non-Labored Respirations, Chest Tube (chronic pleurx on R) and Other (decreased overall on R)
GI: Soft, Non Distended and Non Tender
Neurology: Awake, Alert, Oriented, AO x 3 and No Motor Deficits
Skin: Warm, Dry and Good Color
Labs/Micro/Reports
Lab Data
01/28/24 06:38
01/29/24 06:56
Laboratory Results
01/28/24 01/28/24 01/29/24
13:50 20:45 03:27
APTT 121.4 H 85.6 H 89.4 H
01/29/24
06:56
APTT 81.4 H
--- NOTE | 2024-01-29 11:50 | W.PN.ONC ---
Today's Communication / Plan
-
Respiratory status stable. Continue steroids and oxygen. She is obviously significantly affected both by her cancer as well as chronic respiratory issues.
Impression
Impression
Pulmonary embolus
Non-small cell lung cancer, metastatic, heavily treated
Pneumonitis from adagrasib
Malignant R effusion s/p Pleurx
COPD
Crohn's in remission
Anemia
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
Plan
Plan
Start full dose Eliquis at loading dose 10 mg BID x 1 week, then 5 mg BID.
Pt with mild clot burden, increased O2 requirement out of proportion to magnitude of clot, pulmonary infiltrates. Suspect recrudescence of pneumonitis. Start prednisone 40 mg daily.
Consider Pulm consult given underlying pneumonitis and COPD, increase O2 requirement.
Pt has been treated with multiple lines of therapy and has required frequent hospitalization. May benefit from goals of care discussion.
Thank you for consult, will follow along with you.
Subjective/Objective
Subjective/Objective
She says her breathing is about the same. She denies any pains. Physical examination is unchanged.
Vital Signs:
Vital Signs
Temp Pulse Resp BP Pulse Ox
97.5 F 86 20 120/74 96
01/29/24 11:00 01/29/24 11:13 01/29/24 11:13 01/29/24 11:00 01/29/24 11:13
Lab Results:
Laboratory Data
WBC 5.3 10^3/uL (4.8-10.8) 01/28/24 06:38
Hgb 9.1 g/dL (12.0-16.0) L 01/28/24 06:38
Plt Count 235 10^3/uL (130-400) 01/28/24 06:38
APTT 81.4 Sec (23.4-35.0) H 01/29/24 06:56
eGFR > 60.00 01/29/24 06:56
[2024-01-29] MEDS: MAGNESIUM SULFATE 100 IV (12:46)
[2024-01-29] MEDS: ROXICODONE 5 MG PO (12:57)
--- NOTE | 2024-01-29 14:03 | W.PN.HOSP.TC ---
Addendum entered and electronically signed by Angel Alegria MD 01/29/24 14:14:
Add on to diagnosis list:
Pneumonitis
-Presumed chemotherapy-induced
-Patient started on prednisone 40mg/d by oncology
-further dosing per pulm/onc
Original Note:
Today's Communication/Plan
-
d/c planning for home with HH
Assessment / Plan
Assessment / Plan
Acute on Chronic Hypoxic Respiratory Failure
-Continue supplemental oxygen
-Attempt to wean back to 2-3L via nasal cannula
Pulmonary Embolism, no evidence of right heart strain or hemodynamic instability
-CT chest images reviewed
-high risk for recurrence with active malignancy
-Hematology/oncology consulted for help as well.
-Transitioned to oral eliquis.
NSCLC
Recurrent Malignant Right Pleural effusion and Pleurx catheter
-Last Chemotherapy January 15
-Pleurex catheter drained on January 23
-On Alimta/Avastin, patient plan to follow-up with [facility] moving forward.
-Dr Gray ([facility]) planning to remove Plurex later in month
Productive Cough
-CT scan shows worsening airspace disease, possible pneumonia vs malignancy
-Procal 0.11, no fever.
-Continue Mucinex
-Got one dose cefepime in ER, monitor off abx.
Hypomagnesemia
- low again 1.4 today and replacing with 4g Mag
COPD, no acute exacerbation
-Continue Pulmicort and DuoNeb in place of Breo
Essential Hypertension
-Continue Lisinopril and Toprol
Seizure Disorder
-Continue Phenobarbital
Crohn's Disease s/p Subtotal Colectomy with Ileostomy
-Monitor output
Hyperlipidemia
-Continue rosuvastatin
Chronic Hyponatremia
-Continue sodium tabs
-Continue fluid restriction
Anxiety / Depression
-Continue Fluvoxamine and Ativan
DVT proph: Heparin Drip
Code Status: Full Code
Anticipated Discharge: Within 24 hours
Subjective/Interval History
-
Date of Service: January 29, 2024
Patient oxygen requirement remained stable on 4 L nasal cannula
Afebrile in the night
No reported chest pain/dizziness/palpitation
Objective Data
-
Labs:
Laboratory Results
01/29/24 01/29/24
03:27 06:56
APTT 89.4 H 81.4 H
Sodium 131 L
Potassium 3.6
Chloride 95 L
Carbon Dioxide 31 H
BUN 12
Creatinine 0.4 L
Glucose 112 H
Calcium 8.6
Vital Signs:
Vital Signs
Temp Pulse Resp BP Pulse Ox
97.5 F 86 20 120/74 96
01/29/24 11:00 01/29/24 11:13 01/29/24 11:13 01/29/24 11:00 01/29/24 11:13
I&O
01/28/24 01/29/24 01/30/24
06:59 06:59 06:59
Intake Total 480 / 480 1740 / 1740
Output Total 500 / 500
Balance -20 / -20 1740 / 1740
Review of Systems
-
Respiratory: Reports No Symptoms
Cardiac: Reports No Symptoms
Abdomen/GI: Reports No Symptoms
Physical Exam
-
General: No Apparent Distress, Comfortable and Cachectic
HEENT: Oxygen (5 L NC)
Neuro: Awake, Alert, Oriented and No Motor Deficits
--- NOTE | 2024-01-29 15:38 | CM ---
Pt is on chemotherapy.
She has home oxygen 4 liters POx 96%.
She requested resumption of [facility] at home at [place]. Referral placed.
Family will drive her home.
PLAN Home with [facility]
[2024-01-29] MEDS: LUMINAL 64.7999999999999972 MG PO (18:16)
[2024-01-29] MEDS: CRESTOR 5 MG PO (18:16)
[2024-01-29] MEDS: TOPROL XL 25 MG PO (18:16)
[2024-01-29] MEDS: ROXICODONE PO (23:20)
--- NOTE | 2024-01-30 03:05 | DOWNTIME ---
There was a [employer] Downtime on 01/29/2024 from 0100 to 01/30/2024 at 0300. Downtime documentation of patient's care, including medication administrations, has been reconciled in the electronic record per guidelines. Refer to the
patient's paper chart under the miscellaneous tab to see printed paper medication records and downtime forms.
[2024-01-30 03:10] VITALS: BP 132/72
[2024-01-30 07:00] VITALS: BP 121/65
[2024-01-30] MEDS: DUONEB 3 ML INH ×3 (07:29→19:52)
[2024-01-30] MEDS: PULMICORT 0.5 MG INH ×2 (07:29→19:52)
--- NOTE | 2024-01-30 07:38 | W.PN.ONC2 ---
Today's Communication / Plan
-
Anticipate discharge on oral steroids and anticoagulation.
Close oncology and pulmonary follow-up.
Patient was scheduled to see Dr. Ahmadi today. Appointment will need to be pushed back about a week.
Impression
Impression
Pneumonitis from adagrasib
Pulmonary embolus
Non-small cell lung cancer, metastatic, heavily treated
Malignant R effusion s/p Pleurx
COPD
Crohn's in remission
Anemia
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
Plan
Plan
Eliquis at loading dose 10 mg BID x 1 week, then 5 mg BID.
Pt with mild clot burden, increased O2 requirement out of proportion to magnitude of clot, pulmonary infiltrates. Suspect recurrent pneumonitis. Back on prednisone 40 mg daily.
Appreciate pulm consult given underlying pneumonitis and COPD, increase O2 requirement.
Pt has been treated with multiple lines of therapy and has required frequent hospitalization.
Subjective/Objective
Chief Complaint
ACS Heme Onc F/U
Subjective
Continues with cough. Overall frustrated with ongoing pneumonitis. Following with pulmonary.
Vital Signs:
Vital Signs
Temp Pulse Resp BP Pulse Ox
98.5 F 78 16 132/72 94
01/30/24 03:10 01/30/24 07:35 01/30/24 07:35 01/30/24 03:10 01/30/24 07:35
Lab Results:
Laboratory Data
WBC 5.3 10^3/uL (4.8-10.8) 01/28/24 06:38
Hgb 9.1 g/dL (12.0-16.0) L 01/28/24 06:38
Plt Count 235 10^3/uL (130-400) 01/28/24 06:38
APTT 81.4 Sec (23.4-35.0) H 01/29/24 06:56
eGFR > 60.00 01/29/24 06:56
Physical Exam
Cardiology: S1 and S2
Pulmonary: Other (Clear but coarse breath sounds bilaterally)
GI: Soft
Extremities: No C/C/E
[2024-01-30] MEDS: ZOFRAN 8 MG PO ×2 (07:53→14:41)
[2024-01-30] MEDS: ROXICODONE 5 MG PO ×3 (07:53→18:45)
[2024-01-30] MEDS: ZESTRIL 2.5 MG PO (07:55)
[2024-01-30] MEDS: FOLVITE 1 MG PO (07:55)
[2024-01-30] MEDS: LUVOX 50 MG PO ×2 (07:55→19:43)
[2024-01-30] MEDS: DELTASONE 40 MG PO (07:55)
[2024-01-30] MEDS: PROTONIX 40 MG PO (07:55)
[2024-01-30] MEDS: ELIQUIS 10 MG PO ×2 (07:56→19:45)
[2024-01-30] MEDS: TOPROL XL 50 MG PO ×2 (07:56→19:43)
[2024-01-30 07:57] LABS: Blood Urea Nitrogen 11 mg/dl (7-17); Calcium 8.9 mg/dl (8.4-10.2); Carbon Dioxide 31 mmol/L (22-30); Chloride 96 mmol/L (98-107); Estimated Creatinine Clearance 67 ml/min; Glucose 89 mg/dl (70-99); Magnesium 1.6 mg/dl (1.6-2.3); Potassium 4.2 mmol/L (3.5-5.1); Sodium 133 mmol/L (135-145); eGFR > 60.00
[2024-01-30] MEDS: SODIUM CHLORIDE 1 GRAM PO ×2 (07:57→19:43)
[2024-01-30] MEDS: CLARITIN 10 MG PO (07:57)
[2024-01-30] MEDS: MUCINEX 600 MG PO ×2 (07:57→19:43)
[2024-01-30] MEDS: ATIVAN PO ×3 (08:00→22:34)
--- NOTE | 2024-01-30 08:50 | CON.CAR ---
Addendum entered and electronically signed by Titi Saldana MD 01/30/24 17:12:
I saw and examined the patient.
The Dependency Case Manager's note was reviewed and I agree with the note.
Comment: Briefly, 74-year-old woman past medical history of non-small cell lung cancer with malignant right pleural effusion, chemo induced pneumonitis who presented with worsening dyspnea and cough found to have pulmonary embolism. Initiated on IV
heparin has been transitioned to Eliquis. Cardiology was consulted for tachycardia.
She is maintained on metoprolol as an outpatient, agree with increasing dose given her tachycardia
In addition, echo is suggestive of low filling pressures with small left atrium and IVC, I encouraged her to stay well-hydrated
Agree with monitoring on tele overnight
Original Note:
Consultation
Consultation Request
Date/Time Consultation Requested: 01/30/2024
Date/Time Consultation Performed: 01/30/2024
Requesting Provider: Dr. Alegria
Performing Provider: Lucy Morfin PA-C for Dr. Titi Saldana
Reason for Consultation: Tachycardia
Medical History
-
History of Present Illness:
Patient is a 74 [id number]-fklgdw with a past medical history of non-small cell lung cancer, COPD, hypertension, hyperlipidemia, malignant right pleural effusion with Pleurx and chemo-induced pneumonitis, who presents to ER to 01/27/2024 for acute
on chronic worsening shortness of breathe and cough. She states both the cough and SOB have been intermittent for a while but they have become worse over the last few days since her most recent discharge from [facility] on January 22. She has
been maintained on 3L O2 since she developed chemo-induced pneumonitis. CTA performed 01/27/24 showed new PE, initially placed on IV heparin then transitioned to Eliquis with loading dose 10 mg twice daily x 1 week then 5 mg twice daily after.
Patient noted to have intermittent sinus tachycardia. Cardiology being asked to see patient for management of adjustment of medications due to sinus tachycardia.
Patient reports she feels her heart beating fast and racing every time she tries to ambulate or move around. She notes mild dizziness with tachycardia. She denies chest pain. Cough has improved over the last 24 hours.
PMH:
Pneumonitis
Hypomagnesemia
NSCLC with recurrent right pleural effusion and Pleurx catheter
Immunotherapy for Lung CA (Alimta/Avastin)
History of seizure disorder
Hyperlipidemia
COPD
HTN
Vitamin B 12 deficiency
Crohn Disease with subtotal colectomy/Ostomy
Cholecystectomy
Past Medical History
Past Medical History: Other (See HPI)
Past Surgical History: Cholecystectomy and Other (Right lower lobectomy, subtotal colectomy/ostomy for Crohn's disease, Pleurx catheter placement, cataract extraction)
Social History
Tobacco: Former Smoker
Alcohol: None
Drug: None
Living: With Family
Family History
Family History: Other (Mother had uterine cancer, father had cancer of unknown kind both late in life)
Allergies / Home Medications
Allergy/AdvReac Type Severity Reaction Status Date / Time
acetaminophen [From Vicodin] Allergy Elevates Verified 01/25/24 09:32
ALT, AST
adagrasib [From Krazati] Allergy Unknown Verified 01/25/24 09:32
hydrocodone bitartrate Allergy Vomiting-'deathly Verified 01/25/24 09:32
[From Vicodin] sick in
stomach'
latex Allergy redness Verified 01/25/24 09:32
and
itching,
rash
meperidine HCl [From Demerol] Allergy Nausea / Verified 01/25/24 09:32
Vomiting
propoxyphene Allergy 'DARVOCET' Verified 01/25/24 09:32
[From Darvocet-N] PER
WRITTEN
ORDER FOR
03/24/19
�Medication �Instructions �Recorded �Confirmed �Type
phenobarbital 64.8 mg tablet 64.8 mg PO QPM Neurological 03/12/19 01/27/24 History
Condition
tiotropium bromide 18 mcg capsule 1 cap inhalation R DAILY 09/26/22 01/27/24 History
with inhalation device (Spiriva Lung/Breathing Issues
with HandiHaler)
metoprolol succinate 50 mg 50 mg PO DAILY Heart 09/17/23 01/27/24 History
tablet,extended release 24 hr Disease/Condition
(Toprol XL)
sodium chloride 1,000 mg soluble 1,000 mg PO BID Supplement #60 tabs 09/20/23 01/27/24 Rx
tablet
ascorbic acid (vitamin C) 500 mg 500 mg PO DAILY Supplement 11/09/23 01/27/24 History
tablet (Vitamin C)
loratadine 10 mg tablet (Claritin) 10 mg PO DAILY Allergies 11/09/23 01/27/24 History
fluticasone furoate 200 1 inh inhalation R DAILY 11/22/23 01/27/24 History
mcg-vilanterol 25 mcg/dose Lung/Breathing Issues
inhalation powder (Breo Ellipta)
metoprolol succinate 25 mg 25 mg PO QPM Heart 12/25/23 01/27/24 History
tablet,extended release 24 hr Disease/Condition
lorazepam 1 mg tablet (Ativan) 1 mg PO BID Mental Health/Anxiety 12/27/23 01/27/24 History
Avastin 1 dose IV Q3W Cancer 12/28/23 01/27/24 History
acetaminophen 500 mg tablet 1,000 mg PO BIDPRN PRN mild pain 01/21/24 01/27/24 History
(Tylenol Extra Strength)
calcitonin (salmon) 200 1 spray intranasal (ALT) DAILY 01/21/24 01/27/24 History
unit/actuation nasal spray RENAL
cholecalciferol (vitamin D3) 1,250 1,250 mcg PO TU@0800 Supplement 01/21/24 01/27/24 History
mcg (50,000 unit) capsule
cyanocobalamin (vitamin B-12) 1,000 mcg IM QMONTH Supplement 01/21/24 01/27/24 History
1,000 mcg/mL injection solution
cyclosporine 0.05 % eye drops in a 1 drp BOTH EYES Q12H Eye Condition 01/21/24 01/27/24 History
dropperette (Restasis)
diphenoxylate-atropine 2.5 1 - 2 tab PO QIDPRN PRN diarrhea 01/21/24 01/27/24 History
mg-0.025 mg tablet
folic acid 1 mg tablet 1 mg PO DAILY Supplement 01/21/24 01/27/24 History
lisinopril 2.5 mg tablet 2.5 mg PO DAILY Blood Pressure 01/21/24 01/27/24 History
rosuvastatin 5 mg tablet 5 mg PO QPM High Cholesterol 01/21/24 01/27/24 History
benzonatate 100 mg capsule 200 mg (2 x 100 mg) PO TIDPRN PRN 01/23/24 01/27/24 Rx
Cough #7 caps
fluvoxamine 50 mg tablet 50 mg PO BID #60 tabs 01/23/24 01/27/24 Rx
ondansetron HCl 4 mg tablet 8 mg (2 x 4 mg) PO Q6HPRN PRN 01/23/24 01/27/24 Rx
Nausea #30 tabs
Mucinex 1 tab PO DAILY Congestion 01/27/24 01/27/24 History
oxycodone 5 mg tablet 5 mg PO Q4H PRN mild pain 01/27/24 01/27/24 History
oxycodone 5 mg tablet 10 mg PO Q4HPRN PRN severe pain 01/27/24 01/27/24 History
Review of Systems
-
History Source: Patient
All other systems: Negative unless noted
Physical Exam
Vital Signs
Temp Pulse Resp BP Pulse Ox
97.8 F 105 16 121/65 94
01/30/24 07:00 01/30/24 07:56 01/30/24 07:35 01/30/24 07:56 01/30/24 07:35
GEN: No distress, awake, Ox3, chronically ill appearing
HEENT: supple, anicteric, mmm
LUNGS:diminished BS Rt>Lt with few crackles; no wheezes/rales; chronic right Pleurx; wearing oxygen
CV: Reg, S1/S2, no murmur, rub or gallop
ABD: soft, BS+, NT/ND
EXT: No edema, clubbing or cyanosis
NEURO: Gross non-focal
SKIN: No rash,, warm, dry, pink
Lab Results
01/28/24 06:38
01/30/24 07:13
Troponin I < 0.012 ng/ml 01/27/24 14:57
Bsh-X-Rpwnnfhkzdh Pept 317 pg/ml 01/27/24 14:57
Impression / Plan
-
PCP Marilyn Cortez
Primary Physiotherapy Assistant: Dr. Yoly Brock
Oncologist: Dr. Ahmadi, Dr. Andrade ([place])
Impression:
Presented 01/27/2024 with dyspnea on exertion, cough
Acute hypoxemic respiratory insufficiency
Acute right lobar pulmonary embolism
Pneumonitis
Hypomagnesemia
NSCLC with recurrent right pleural effusion and Pleurx catheter
Immunotherapy for Lung CA (Alimta/Avastin)
History of seizure disorder
Hyperlipidemia
COPD
HTN
Vitamin B 12 deficiency
Crohn Disease with subtotal colectomy/Ostomy
Cholecystectomy
Echo 09/18/2023: EF 60-65%, mild AI, mild TR, PAP 47-52 mmHg
Echo 04/18/2023: EF 65-70%, mild AI, mild MR w/ PAP 30-35 mmHg
Plan:
-Presented 01/28/2024 with dyspnea on exertion, cough
-Acute on Chronic Hypoxic Respiratory Failure - wean supplemental oxygen as tolerated, currently on 3 L/min
-Right lobar pulmonary embolism without hemodynamic instability now on Eliquis 10 mg twice a day x 1 week then 5 mg there after per oncology
-Patient has history of sinus tachycardia which has been maintained with beta-donna therapy. Patient's heart rates are elevated at times. Patient has been on Toprol 50 mg in a.m. and 25 mg in p.m. Would increase Toprol to 50 mg BID. Hopefully
heart rate will improve with treatment of pulmonary embolism.
-Blood pressure well controlled. If she would become hypotensive with increased Toprol then could consider discontinuation of of lisinopril
-Repeat echocardiogram to assess RV strain and PA pressures
-Hypomagnesemia would continue to replete magnesium goal greater than 2
-Chemo induced pneumonitis. Patient restarted on prednisone 40 mg daily by oncology. Patient reports every time steroids wean down or discontinued she ends up back in the hospital.
-Will arrange for outpatient cardiology follow-up
[facility] 01/30/24:
Patient is a 74 [id number]-nadahx with a past medical history of non-small cell lung cancer, COPD, hypertension, hyperlipidemia, malignant right pleural effusion with Pleurx and chemo-induced pneumonitis, who presents to ER to 01/27/2024 for acute
on chronic worsening shortness of breathe and cough. She states both the cough and SOB have been intermittent for a while but they have become worse over the last few days since her most recent discharge from [facility] on January 22. She has
been maintained on 3L O2 since she developed chemo-induced pneumonitis. CTA performed 01/27/24 showed new PE, initially placed on IV heparin then transitioned to Eliquis with loading dose 10 mg twice daily x 1 week then 5 mg twice daily after.
Patient noted to have intermittent sinus tachycardia. Cardiology being asked to see patient for management of adjustment of medications due to sinus tachycardia.
Patient reports she feels her heart beating fast and racing every time she tries to ambulate or move around. She notes mild dizziness with tachycardia. She denies chest pain. Cough has improved over the last 24 hours.
Data Reviewed
-
EKG: Report Reviewed by me, Discussed with Physician, Discussed with Patient and Discussed with Family
CT Scan: Report Reviewed by me, Discussed with Physician, Discussed with Patient and Discussed with Family
Labs: Labs Reviewed by me, Discussed with Physician, Discussed with Patient and Discussed with Family
Old Records: Reviewed
[2024-01-30] MEDS: DUONEB INH (11:07)
--- NOTE | 2024-01-30 11:53 | W.PN.HOSP.TC ---
Today's Communication/Plan
-
cardio evaluation
continue wean off as possible
maintain on eliquis
Assessment / Plan
Assessment / Plan
Acute on Chronic Hypoxic Respiratory Failure
-Continue supplemental oxygen
-Attempt to wean back to 2-3L via nasal cannula
Pulmonary Embolism, no evidence of right heart strain or hemodynamic instability
-CT chest images reviewed
-high risk for recurrence with active malignancy
-Hematology/oncology consulted for help as well.
-Transitioned to oral eliquis.
Sinus tachycardia
-induced with PE
-Cardio involved , dose of toprol xl has been increased
-TTE showing PAP 35-40mmhg, EF 65-70%
NSCLC
Recurrent Malignant Right Pleural effusion and Pleurx catheter
-Last Chemotherapy January 15
-Pleurex catheter drained on January 23
-On Alimta/Avastin, patient plan to follow-up with [facility] moving forward
-Dr Gray ([facility]) planning to remove Plurex later in month
-Imaging findings discussed with patient
Right lung pneumonitis
-presumed chemo induced RL pneumonitis
-started on oral prednisone 40mg/d
Productive Cough
-CT scan shows worsening airspace disease, possible pneumonia vs malignancy
-Procal 0.11, no fever.
-Continue Mucinex
-Got one dose cefepime in ER, monitor off abx.
Hypomagnesemia
-replace as needed
COPD, no acute exacerbation
-Continue Pulmicort and DuoNeb in place of Breo
Essential Hypertension
-Continue Lisinopril and Toprol
Seizure Disorder
-Continue Phenobarbital
Crohn's Disease s/p Subtotal Colectomy with Ileostomy
-Monitor output
Hyperlipidemia
-Continue rosuvastatin
Chronic Hyponatremia
-Continue sodium tabs
-Continue fluid restriction
Anxiety / Depression
-Continue Fluvoxamine and Ativan
DVT proph: Heparin Drip
Code Status: Full Code
Anticipated Discharge: Within 24 hours
Subjective/Interval History
-
Date of Service: January 30, 2024
patient concerned about tachycardia with activity
o2 requirement down to 3L NC
Objective Data
-
Labs:
Laboratory Results
01/30/24
07:13
Sodium 133 L
Potassium 4.2
Chloride 96 L
Carbon Dioxide 31 H
BUN 11
Creatinine 0.5 L
Glucose 89
Calcium 8.9
Vital Signs:
Vital Signs
Temp Pulse Resp BP Pulse Ox
97.8 F 105 16 121/65 94
01/30/24 07:00 01/30/24 07:56 01/30/24 07:35 01/30/24 07:56 01/30/24 07:35
I&O
01/29/24 01/30/24 01/31/24
06:59 06:59 06:59
Intake Total 1740 / 1740 1140 / 1140
Balance 1740 / 1740 1140 / 1140
Review of Systems
-
Respiratory: Reports No Symptoms
Cardiac: Reports No Symptoms
Abdomen/GI: Reports No Symptoms
Physical Exam
-
General: Cachectic
HEENT: Oxygen (3 L NC)
Neuro: Awake, Alert, Oriented and No Motor Deficits
Psych: Calm
[2024-01-30] MEDS: LOMOTIL 1 TABLET PO (12:07)
[2024-01-30 12:15] VITALS: BP 135/84
--- NOTE | 2024-01-30 14:38 | W.PN.PUL3 ---
Today's Communication / Plan
-
Doing well on Eliquis, no new events
We discussed outpatient pulmonary FU
Discharge planning per team
We will sign off at this time, please call with questions
Assessment
-
74 wuwk-hrz-voyant with a past medical history of non-small cell lung cancer, COPD, hypertension, hyperlipidemia, malignant right pleural effusion with Pleurx and chemo-induced pneumonitis, who presents to ER today for acute on chronic worsening
shortness of breathe and cough. She has been on home O2 since she developed chemo-induced pneumonitis. CTA showing new PE, placed on IV heparin. We are consulted for eval.
New R lobar PE
Acute on chronic SOB
Recurrent malignant effusion s/p pleurx at [place]
History of metastatic NSCLC
Hyponatremia, mild
Metabolic alkalosis
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
Hypertension
Seizure disorder
COPD
Anxiety/Depressive disorder
Osteoarthritis
Ruptured gallbladder and poss stones in bile duct s/p Cholecystectomy 1975
Pneumonia(2015)
Hyponatremia
Adenocarcinoma RLL, RUL/NSCLC, known to [place] s/p Right lower lobectomy (08/22/2022)
Recurrent malignant pleural effusions s/p pleurx R
Hay Fever
Appendectomy(1970)
Delayed closure of abdominal wounds (1970)
Partial Small Bowel Resection(2014)
Facelift 2 surgeries back to back (03/25/19)
Bilat eye lift - Sep 2020
Cataract-lens implants January 2021
Plan
Hypoxemia noted on arrival, she has history of home O2 use
6MWT obtained on last visit, showing need of 1L with exertion, she is 92% on RA
Will need to reassess her O2 needs prior to discharge
Prior history of lung disease is noted including COPD, NSCLC, malignant pleural effusion
Recurrent right pleural effusion status post Pleurx catheter.
This was placed by Dr. Gray at [place] in April 2023.
Draining once a week of light red fluid 50 cc
She would like this removed but we will need to discuss with [facility]
New lobar PE noted, placed on IV heparin, transitioned to OAC
Known to [place]
CXR/CT imaging reviewed
COPD- Follows at [facility], Dr. Mccabe
Maintained on Breo and Spiriva/Levalbuterol as needed
Continue with current regimen
[place] �07/31/22 FEV1= �1.33,�FEV1/FVC= �0.63
Cough noted, productive
We discussed airway clearance which I will add: vest/acapella
Mucinex, nebs
Sputum culture negative 01/24
She is continued on PO prednisone for potential pneumonitis
Heme following
ECHO results reviewed from prior, stable function
Mild clot burden, no evidence of RHS
Further OP FU with Dr Cantrell
Discharge planning per team
Diagnostic Data
CT chest 01/27/24- New findings suggesting a right lung pulmonary embolus (distal right interlobar artery). Mild clot burden. No evidence of right heart strain. Moderate right upper lobe and right lower lobe as well as right middle lobe airspace
disease concerning for pneumonia. Progressed. Underlying masses not excluded. Small bilateral pleural effusions, right larger than left. Progressed. Mild left lower lobe consolidation probably atelectasis. Findings suggesting a spiculated left lower
lobe pulmonary nodule. Small pericardial effusion. Progressed. Right-sided chest tube.
12/30/23- . No evidence of pulmonary embolism.
2. Mild pulmonary interstitial edema.
3. Scattered bilateral areas of parenchymal consolidation most in keeping with pneumonia. Recommend continued imaging after treatment to rule out underlying neoplasm.
4. Chronic loculated right pleural effusion with drainage catheter in place.
ECHO 09/18/23- . Left ventricle: Normal size and function with an estimated ejection fraction of 60-65% by volumetric assessment
2. Right ventricle: Normal
3. Atria: Normal
4. Mitral valve: Trace mitral regurgitation
5. Aortic valve: Mild aortic insufficiency
6. Tricuspid valve: Mild tricuspid regurgitation. Mild to moderate pulmonary hypertension with estimated pulmonary artery systolic pressures of 47-52 mmHg
7. When compared to the most recent echocardiogram from 04/18/2023 there has been no significant change
�Last Spirometry� FEV1= �1.33,�FEV1/FVC= �0.63,�COPD Symptoms: �Dyspnea.�
������ 07/31/22.
Total time spent on patient includes extensive review of records/outpatient notes.
Subjective Data
-
Date of Service:
Date of Service: January 30, 2024
Chief Complaint: Pulmonary Follow Up
Subjective:
no acute events ON, remains stable
no new complaints, family at bedside
Objective Data
Data Reviewed
Vital Signs / I&O / Oxygen:
Vital Signs
Temp Pulse Resp BP Pulse Ox
97.9 F 100 20 135/84 98
01/30/24 12:15 01/30/24 12:15 01/30/24 12:15 01/30/24 12:15 01/30/24 12:15
Intake and Output
01/29/24 01/30/24 01/31/24
06:59 06:59 06:59
Intake Total 1740 / 1740 1140 / 1140
Balance 1740 / 1740 1140 / 1140
SaO2 98
Nasal Cannula flow liters per 3
minute
Physical Exam
General: Comfortable and Other (NAD, thin appearing)
HEENT: Normocephalic, Anicteric and Moist Mucous Membranes
Cardiovascular: S1-S2 and Regular Rhythm
Respiratory: Crackles, Non-Labored Respirations, Chest Tube (chronic pleurx on R) and Other (decreased overall on R)
GI: Soft, Non Distended and Non Tender
Neurology: Awake, Alert, Oriented, AO x 3 and No Motor Deficits
Skin: Warm, Dry and Good Color
Labs/Micro/Reports
Lab Data
01/28/24 06:38
01/30/24 07:13
[2024-01-30 15:00] VITALS: BP 138/74
--- NOTE | 2024-01-30 16:06 | CM ---
She has home oxygen 3 liters POx 100%.
Spoke with pt in room she said her son Chad will drive her home at tx.
She requested resumption of [facility] at home at tx. Referral placed.
Family will drive her home.
PLAN Home with [facility]
[2024-01-30] MEDS: CRESTOR 5 MG PO (17:16)
[2024-01-30] MEDS: LUMINAL 64.7999999999999972 MG PO (17:16)
[2024-01-30 19:02] VITALS: BP 124/75
[2024-01-30] MEDS: ROXICODONE 10 MG PO (20:52)
[2024-01-30 23:04] VITALS: BP 149/79
[2024-01-31 03:01] VITALS: BP 137/78
[2024-01-31] MEDS: ROXICODONE 5 MG PO (03:25)
[2024-01-31] MEDS: ZOFRAN 8 MG PO (03:26)
[2024-01-31 06:11] LABS: Blood Urea Nitrogen 11 mg/dl (7-17); Calcium 8.5 mg/dl (8.4-10.2); Carbon Dioxide 35 mmol/L (22-30); Chloride 94 mmol/L (98-107); Estimated Creatinine Clearance 67 ml/min; Glucose 86 mg/dl (70-99); Potassium 3.6 mmol/L (3.5-5.1); Sodium 132 mmol/L (135-145); eGFR > 60.00
[2024-01-31] MEDS: DUONEB 3 ML INH ×2 (07:29→11:18)
[2024-01-31] MEDS: PULMICORT 0.5 MG INH (07:29)
[2024-01-31 07:48] VITALS: BP 127/66
[2024-01-31] MEDS: SODIUM CHLORIDE 1 GRAM PO (08:03)
[2024-01-31] MEDS: PROTONIX 40 MG PO (08:03)
[2024-01-31] MEDS: MUCINEX 600 MG PO (08:03)
[2024-01-31] MEDS: DELTASONE 40 MG PO (08:03)
[2024-01-31] MEDS: CLARITIN 10 MG PO (08:03)
[2024-01-31] MEDS: FOLVITE 1 MG PO (08:03)
[2024-01-31] MEDS: ZESTRIL 2.5 MG PO (08:03)
[2024-01-31] MEDS: LUVOX 50 MG PO (08:03)
[2024-01-31] MEDS: ELIQUIS 10 MG PO (08:03)
[2024-01-31] MEDS: ATIVAN PO (08:04)
[2024-01-31] MEDS: TOPROL XL 50 MG PO (08:04)
[2024-01-31] MEDS: ATIVAN 1 MG PO (09:41)
--- NOTE | 2024-01-31 10:29 | W.PN.ONC ---
Today's Communication / Plan
-
Eliquis at loading dose 10 mg BID x 1 week, then 5 mg BID.
Pulmonary infiltrate suspected pneumonitis currently on steroids
Will follow-up in the office to review options for therapy and goals of care
Impression
Impression
Pneumonitis from adagrasib
Pulmonary embolus
Non-small cell lung cancer, metastatic, heavily treated
Malignant R effusion s/p Pleurx
COPD
Crohn's in remission
Anemia
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
Subjective/Objective
Subjective/Objective
Respiratory status stable. Patient without new complaints.
Vital Signs:
Vital Signs
Temp Pulse Resp BP Pulse Ox
98.2 F 91 16 127/66 98
01/31/24 07:48 01/31/24 08:04 01/31/24 07:48 01/31/24 08:04 01/31/24 10:02
Physical exam unchanged
Lab Results:
Laboratory Data
WBC 5.3 10^3/uL (4.8-10.8) 01/28/24 06:38
Hgb 9.1 g/dL (12.0-16.0) L 01/28/24 06:38
Plt Count 235 10^3/uL (130-400) 01/28/24 06:38
APTT 81.4 Sec (23.4-35.0) H 01/29/24 06:56
eGFR > 60.00 01/31/24 05:19
--- NOTE | 2024-01-31 11:18 | CM ---
MD entered order for discharge.
She has home oxygen 3 liters POx 98%.
She said her son Chad will drive her home at dc.
She requested resumption of [facility] at home at ne. Referral placed.
Spoke with Karie at [facility] she is aware of dc and resumption with [facility]
PLAN Home with [facility] fax [phone]
[2024-01-31 11:23] VITALS: BP 127/78
--- NOTE | 2024-01-31 12:22 | W.PN.CARDCBS ---
Addendum entered and electronically signed by Jolanta Melendez DO 01/31/24 18:17:
I saw and examined the patient.
The Fence Rider's note was reviewed and I agree with the note.
Comment: Seen and examined. Stable SOB/MUHAMMAD on nc o2. No palpitations
GEN: AAO x3, frail appearing
HEENT: mmm
LUNGS: Decreased BS right worse than left. No wheeze
CV: SR/ST +S1S2 no murmur
ABD: soft NT/ND + BS
EXT: No edema B/L
Plan:
-BP tolerating higher dose of Toprol XL 50 mg BID. HRs up to 90s with activity like moving in bed, but no palpitations.
-If she would become hypotensive with increased Toprol then could consider discontinuation of of lisinopril
-Right lobar pulmonary embolism without hemodynamic instability now on Eliquis 10 mg twice a day x 1 week then 5 mg there after per oncology
-Echo from 01/30/24 showed normal RV size and function
-Chemo induced pneumonitis. Patient restarted on prednisone 40 mg daily by oncology. Patient reports every time steroids wean down or discontinued she ends up back in the hospital.
-Cardiology office will call patient to arrange for follow up
Original Note:
Today's Communication / Plan
-
Agree with Toprol XL 50 mg BID at discharge
Impression / Plan
-
PCP Marilyn Cortez
Primary Unclaimed Property Manager: Dr. Yoly Brock
Oncologist: Dr. Ahmadi, Dr. Andrade ([place])
Impression:
Presented 01/27/2024 with dyspnea on exertion, cough
Acute hypoxemic respiratory insufficiency
Acute right lobar pulmonary embolism
Pneumonitis
Hypomagnesemia
NSCLC with recurrent right pleural effusion and Pleurx catheter
Immunotherapy for Lung CA (Alimta/Avastin)
History of seizure disorder
Hyperlipidemia
COPD
HTN
Vitamin B 12 deficiency
Crohn Disease with subtotal colectomy/Ostomy
Cholecystectomy
h/o sinus tachycardia managed with Toprol XL prior to admission
Echo 09/18/2023: EF 60-65%, mild AI, mild TR, PAP 47-52 mmHg
Echo 04/18/2023: EF 65-70%, mild AI, mild MR w/ PAP 30-35 mmHg
Echo 01/30/24: EF 65-70%, normal regional wall motion, normal RV size and function, mild aortic regurgitation
Plan:
-BP tolerating higher dose of Toprol XL 50 mg BID. HRs up to 90s with activity like moving in bed, but no palpitations. If she would become hypotensive with increased Toprol then could consider discontinuation of of lisinopril
-Right lobar pulmonary embolism without hemodynamic instability now on Eliquis 10 mg twice a day x 1 week then 5 mg there after per oncology
-Echo from 01/30/24 showed normal RV size and function
-Chemo induced pneumonitis. Patient restarted on prednisone 40 mg daily by oncology. Patient reports every time steroids wean down or discontinued she ends up back in the hospital.
-Cardiology office will call patient to arrange for follow up
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
01/27/2024 for acute on chronic worsening shortness of breathe and cough. She states both the cough and SOB have been intermittent for a while but they have become worse over the last few days since her most recent discharge from [facility]
on January 22. She has been maintained on 3L O2 since she developed chemo-induced pneumonitis. CTA performed 01/27/24 showed new PE, initially placed on IV heparin then transitioned to Eliquis with loading dose 10 mg twice daily x 1 week then 5 mg
twice daily after. Patient noted to have intermittent sinus tachycardia. Cardiology being asked to see patient for management of adjustment of medications due to sinus tachycardia.
Patient reports she feels her heart beating fast and racing every time she tries to ambulate or move around. She notes mild dizziness with tachycardia. She denies chest pain. Cough has improved over the last 24 hours.
Progress Note - Unclaimed Property Manager
Subjective
Date of Service: January 31, 2024
She feels well, no palpitations
Objective
Labs:
01/28/24 06:38
01/31/24 05:19
Labs
Hgb 9.1 g/dL (12.0-16.0) L 01/28/24 06:38
Hct 30.1 % (37.0-47.0) L 01/28/24 06:38
Plt Count 235 10^3/uL (130-400) 01/28/24 06:38
APTT 81.4 Sec (23.4-35.0) H 01/29/24 06:56
Sodium 132 mmol/L (135-145) L 01/31/24 05:19
Potassium 3.6 mmol/L (3.5-5.1) 01/31/24 05:19
BUN 11 mg/dl (7-17) 01/31/24 05:19
Creatinine 0.4 mg/dL (0.6-1.0) L 01/31/24 05:19
Glucose 86 mg/dl (70-99) 01/31/24 05:19
Vital Signs and I&O:
Vital Signs
Temp Pulse Resp BP Pulse Ox
98.1 F 93 16 127/78 96
01/31/24 11:23 01/31/24 11:23 01/31/24 11:23 01/31/24 11:23 01/31/24 11:23
Vital Signs
Temp Pulse Resp BP Pulse Ox
98.1 F 93 16 127/78 96
01/31/24 11:23 01/31/24 11:23 01/31/24 11:23 01/31/24 11:23 01/31/24 11:23
Intake & Output
01/29/24 01/30/24 01/31/24 02/01/24
06:59 06:59 06:59 06:59
Intake Total 1740 / 1740 1140 / 1140 1440 / 1440
Balance 1740 / 1740 1140 / 1140 1440 / 1440
Physical Exam
Physical Exam
GEN: AAO x3, frail appearing
HEENT: EOMI
LUNGS: Decreased BS right worse than left. No wheeze
CV: SR/ST on tele
ABD: ND
EXT: No edema B/L
NEURO: Gross non-focal
SKIN: No rash
--- NOTE | 2024-01-31 14:37 | W.PN.HOSP.TC ---
Today's Communication/Plan
-
d/c home
Assessment / Plan
Assessment / Plan
Acute on Chronic Hypoxic Respiratory Failure
-Continue supplemental oxygen
-Attempt to wean back to 2-3L via nasal cannula
Pulmonary Embolism, no evidence of right heart strain or hemodynamic instability
-CT chest images reviewed
-high risk for recurrence with active malignancy
-Hematology/oncology consulted for help as well.
-Transitioned to oral eliquis.
Sinus tachycardia
-induced with PE
-Cardio involved , dose of toprol xl has been increased
-TTE showing PAP 35-40mmhg, EF 65-70%
NSCLC
Recurrent Malignant Right Pleural effusion and Pleurx catheter
-Last Chemotherapy January 15
-Pleurex catheter drained on January 23
-On Alimta/Avastin, patient plan to follow-up with [facility] moving forward
-Dr Gray ([facility]) planning to remove Plurex later in month
-Imaging findings discussed with patient
Right lung pneumonitis
-presumed chemo induced RL pneumonitis
-started on oral prednisone 40mg/d
Productive Cough
-CT scan shows worsening airspace disease, possible pneumonia vs malignancy
-Procal 0.11, no fever.
-Continue Mucinex
-Got one dose cefepime in ER, monitor off abx.
Hypomagnesemia
-replace as needed
COPD, no acute exacerbation
-Continue Pulmicort and DuoNeb in place of Breo
Essential Hypertension
-Continue Lisinopril and Toprol
Seizure Disorder
-Continue Phenobarbital
Crohn's Disease s/p Subtotal Colectomy with Ileostomy
-Monitor output
Hyperlipidemia
-Continue rosuvastatin
Chronic Hyponatremia
-Continue sodium tabs
-Continue fluid restriction
Anxiety / Depression
-Continue Fluvoxamine and Ativan
DVT proph: eliquis
Code Status: Full Code
More than 30 minutes spent in discharge including
Final examination of the patient
Summarizing hospital stay
Instructions for continuing care to all relevant caregivers
Preparation of discharge records, prescriptions, and referral forms
Total time spent (in minutes): 39 mins
Anticipated Discharge: Today
Subjective/Interval History
-
Date of Service: January 31, 2024
denies palpitation/chest pain
no other issues
Objective Data
-
Labs:
Laboratory Results
01/31/24
05:19
Sodium 132 L
Potassium 3.6
Chloride 94 L
Carbon Dioxide 35 H
BUN 11
Creatinine 0.4 L
Glucose 86
Calcium 8.5
Vital Signs:
Vital Signs
Temp Pulse Resp BP Pulse Ox
98.1 F 93 16 127/78 96
01/31/24 11:23 01/31/24 11:23 01/31/24 11:23 01/31/24 11:23 01/31/24 11:23
I&O
01/30/24 01/31/24 02/01/24
06:59 06:59 06:59
Intake Total 1140 / 1140 1440 / 1440
Balance 1140 / 1140 1440 / 1440
Review of Systems
-
Respiratory: Reports No Symptoms
Cardiac: Reports No Symptoms
Abdomen/GI: Reports No Symptoms
Physical Exam
-
General: Cachectic
HEENT: Oxygen (3 L NC)
Cardiac: Regular Rhythm and S1/S2; Negative Murmur
Neuro: Awake, Alert, Oriented and No Motor Deficits
Psych: Calm
--- NOTE | 2024-01-31 14:54 | W.DCSUMMARY ---
Discharge Summary
Discharge Data
Date of Admission: 01/27/24
Date of Discharge: 01/31/24
-
Pending Results: No
Hospital Course
Discharging Physician : Dr Angel Alegria
Disposition : Home with home care
Primary care physician : Dr Marilyn Cortez
Principal Discharge diagnosis :
Right-sided pulmonary embolism
Acute on chronic hypoxic respiratory failure
Sinus tachycardia
Right lung pneumonitis
Chronic Discharge diagnosis :
Non-small cell lung carcinoma
Recurrent hypomagnesemia
Chronic obstructive lung disease
Essential hypertension
History of seizure disorder
Crohn's disease s/p subtotal colectomy with ileostomy
Hyperlipidemia
Chronic hyponatremia
Anxiety/depression
Hospital Course :
Patient is a 74-year-old female with above-mentioned past medical history came to ER with new onset of shortness of breath and cough. Symptoms were ongoing for few days. Patient oxygen requirement was higher than usual 3L oxygen through nasal
cannula. CT chest PE was done in ER showed new right-sided pulmonary embolism without signs of RV strain. Heparin drip was involved in care. Patient have history of non-small cell lung cancer post multiple lines of therapy, although denies
history of any DVT PE in the past. Patient was transition to [facility] after improvement in hypoxia.
Patient also noted to having worsening infiltrate on right side of lung. Infection was ruled out. This was suspected to be chemotherapy related pneumonitis. Patient was started on prednisone 40 mg daily. [facility]
Patient significant sinus tachycardia although are asymptomatic. An echocardiogram was done which ruled out any RV strain with pulm artery pressure of 35 to 40 mmHg. EF of 65 to 70%. Cardiology increased patient Toprol-XL dose.
Patient was able to participate with physical therapy and able to get around with minimal assistance. Patient was discharged home with home health care.
Important imaging findings :
None
Procedure findings :
None
Discharge Plan
-
Patient Disposition: Home with Home Care
Discharge Diagnosis/Procedures: NSCLC , Right lung pneumonitis, Right sided PE
Condition: Fair
Diet: Regular
Activity: As tolerated
Driving Restrictions: No driving
Bathing Restrictions: OK to Shower
Referrals:
Sachin Cantrell MD [Active] - (2-3 weeks, PFTs/6MWT)
Roxanna Ahmadi MD [Active] - in one week
UNKNOWN - PT NOT,INTERVIEWE [Family Provider] -
Prescriptions:
New
prednisone 20 mg Tablet
40 mg PO DAILY 30 Days Qty: 60 0RF
Eliquis 5 mg tablet
See Rx Instructions .ROUTE .COMPLEX Qty: 64 0RF
Rx Instructions:
Take 2 Tablet twice daily for today and next 4 days THEN
Take 1 Tablet twice daily for maintenence
1st month supply
Eliquis 5 mg tablet
5 mg PO BID Qty: 60 1RF
Rx Instructions:
2nd month and onward supply
ondansetron HCl 4 mg Tablet
8 mg PO Q6HPRN PRN (Reason: Nausea/Vomiting) Qty: 60 0RF
budesonide 0.5 mg/2 mL Suspension For Nebulization
0.5 mg inhalation R BID Qty: 60 2RF
oxycodone 5 mg Tablet
5 mg PO Q4H PRN (Reason: mild pain) Qty: 14 0RF
oxycodone 5 mg Tablet
10 mg PO Q4HPRN PRN (Reason: severe pain) Qty: 14 0RF
metoprolol succinate 50 mg Tablet Extended Release 24 Hr
50 mg PO BID Qty: 60 2RF
pantoprazole 40 mg Tablet,Delayed Release (Dr/Ec)
40 mg PO DAILY Qty: 30 2RF
Continued
phenobarbital 64.8 MG tablet
64.8 mg PO QPM
tiotropium bromide [Spiriva with HandiHaler] 18 mcg Capsule, W/Inhalation Device
1 cap INHALATION R DAILY
sodium chloride 1,000 mg tablet,soluble
1,000 mg PO BID Qty: 60 0RF
ascorbic acid (vitamin C) [Vitamin C] 500 mg Tablet
500 mg PO DAILY
loratadine [Claritin] 10 mg Tablet
10 mg PO DAILY
fluticasone furoate-vilanterol [Breo Ellipta] 200-25 mcg/dose Blister With Device
1 inh INHALATION R DAILY
lorazepam [Ativan] 1 mg tablet
1 mg PO BID
Avastin
1 dose IV Q3W
Patient Comments:
01/27/2024, per pt., she gets this infusion through [facility].
diphenoxylate-atropine 2.5-0.025 mg Tablet
1 - 2 tab PO QIDPRN PRN (Reason: diarrhea)
acetaminophen [Tylenol Extra Strength] 500 mg Tablet
1,000 mg PO BIDPRN PRN (Reason: mild pain)
calcitonin (salmon) 200 unit/actuation [place],Non-Aerosol
1 spray INTRANASAL (ALT) DAILY
Patient Comments:
01/27/2024, pt. forgets to take this med regularly.
cyanocobalamin (vitamin B-12) 1,000 mcg/mL Solution
1,000 mcg IM QMONTH
Patient Comments:
01/27/2024, last dose was end of December per pt.
folic acid 1 mg Tablet
1 mg PO DAILY
lisinopril 2.5 mg Tablet
2.5 mg PO DAILY
cyclosporine [Restasis] 0.05 % Dropperette
1 drp BOTH EYES Q12H
rosuvastatin 5 mg Tablet
5 mg PO QPM
cholecalciferol (vitamin D3) 1,250 mcg (50,000 unit) Capsule
1,250 mcg PO TU@0800
fluvoxamine 50 mg Tablet
50 mg PO BID Qty: 60 0RF
benzonatate 100 mg Capsule
200 mg PO TIDPRN PRN (Reason: Cough) Qty: 7 0RF
Mucinex
1 tab PO DAILY
Discontinued
metoprolol succinate [Toprol XL] 50 mg Tablet Extended Release 24 Hr
50 mg PO DAILY
metoprolol succinate 25 mg Tablet Extended Release 24 Hr
25 mg PO QPM
ondansetron HCl 4 mg Tablet
8 mg PO Q6HPRN PRN (Reason: Nausea) Qty: 30 0RF
oxycodone 5 mg Tablet
5 mg PO Q4H PRN (Reason: mild pain)
oxycodone 5 mg Tablet
10 mg PO Q4HPRN PRN (Reason: severe pain)
Discharge Orders:
Discharge Patient (As Directed); Ordered 01/31/24
Ordered By: Angel Alegria
Discharge Date and Time
Discharge Date/Time: 01/31/24 12:10
Print Language: NICARAGUAN
== END 2024-01-31 12:10 | disposition home health service (06) | DRG 205 ==
LOC: 3 WEST ACU 17:43
PROVIDERS: Physician Assistant Medical; ADMITTING PHYSICIAN Internal Medicine; ATTENDING PHYSICIAN Hospitalist; CONSULT PHYSICIAN Internal Medicine; CONSULT PHYSICIAN Internal Medicine Cardiovascular Disease; CONSULT PHYSICIAN Internal Medicine Hematology & Oncology; EMERGENCY PHYSICIAN Emergency Medicine
DX: J70.2 Acute drug-induced interstitial lung disorders (principal); I26.99 Other pulmonary embolism without acute cor pulmonale; J96.21 Acute and chronic respiratory failure with hypoxia; C34.90 Malignant neoplasm of unspecified part of unspecified bronchus or lung; J44.0 Chronic obstructive pulmonary disease with (acute) lower respiratory infection; E87.1 Hypo-osmolality and hyponatremia; J91.0 Malignant pleural effusion; K50.00 Crohn's disease of small intestine without complications; E87.3 Alkalosis; Z87.891 Personal history of nicotine dependence; E83.42 Hypomagnesemia; I10 Essential (primary) hypertension; G40.909 Epilepsy, unspecified, not intractable, without status epilepticus; F32.A Depression, unspecified; F41.9 Anxiety disorder, unspecified; J98.4 Other disorders of lung; E78.00 Pure hypercholesterolemia, unspecified; T45.1X5A Adverse effect of antineoplastic and immunosuppressive drugs, initial encounter
CPT/HCPCS: 36415; 71045; 71275; 80048; 80053; 81003; 81015; 83735; 83880; 84145; 84484; 85025; 85027; 85730; 87070; 87086; 87205; 93005; 93306; 94640; 96365; 96366; 96367; 96374; 97162; 97166; 97530; 99291; J1439; Q9967

== ENCOUNTER 2024-02-08 08:28 | Outpatient (RCR) | payer MEDICARE, OTHER, SELFPAY ==
[2024-01-18 09:02] VITALS: BP 103/73
[2024-01-18] MEDS: MAGNESIUM SULFATE 108 GRAMS IV (09:08)
[2024-01-18] MEDS: ZOFRAN 4 MG IV (12:29)
[2024-01-25] MEDS: INJECTAFER 265 MG IV (09:30)
[2024-01-25 09:51] VITALS: BP 123/74
[2024-01-25 10:02] LABS: Hematocrit 32.5 % (37.0-47.0); Hemoglobin 9.7 g/dL (12.0-16.0); Mean Corp Hgb Conc. 29.8 g/dL (33.0-37.0); Mean Corpuscular Hgb 23.8 pg (27.0-31.0); Mean Corpuscular Volume 79.7 fL (81.0-99.0); Mean Platelet Volume 9.8 fL (7.4-10.4); Platelet Count 249 10^3/uL (130-400); Red Blood Cell Count 4.08 10^6/uL (4.20-5.40); Red Cell Dist. Width 18.9 % (11.5-14.5); White Blood Cell Count 4.4 10^3/uL (4.8-10.8)
[2024-01-25 10:11] LABS: Magnesium 1.1 mg/dl (1.6-2.3)
[2024-01-25] MEDS: MAGNESIUM SULFATE 108 GRAMS IV (10:33)
[2024-01-25 11:11] LABS: Absolute Neutrophils -Man Diff 2.4 10^3/uL (1.4-6.5); Atypical Lymphocytes 4 %; Band Neutrophils 2 % (0-3); Eosinophils 1 % (0-6); Lymphocytes 20 % (20-51); Metamyelocytes 2 % (-); Monocytes 18 % (2-9); Normal RBC Morphology Yes; Platelets Checked Yes; Segmented Neutrophils 53 % (42-75); Total Cells Counted 100
[2024-01-25 12:37] LABS: Urine Red Blood Cell 0-2 /HPF (0-2)
[2024-01-25 13:19] LABS: Urine Albumin Negative (Neg - Trace); Urine Bilirubin 1+ (Negative); Urine Character Clear (Clear); Urine Color Yellow; Urine Glucose Negative (Negative); Urine Ketone Negative (Negative); Urine Leukocyte Negative (Negative); Urine Nitrite Negative (Negative); Urine Occult Blood Negative (Negative); Urine Urobilinogen Negative (Neg - 1+)
[2024-02-01 08:49] VITALS: BP 143/84
[2024-02-01] MEDS: MAGNESIUM SULFATE 108 GRAMS IV (09:14)
[2024-02-05 09:01] LABS: % Basophils 0.1 % (0-2); % Eosinophils 0.2 % (0-6); % Immature Granulocytes 0.4 % (0-0.5); % Lymphocytes 5.8 % (20.5-51.1); % Monocytes 9.9 % (1.7-9.3); % Neutrophils 83.6 % (42.2-75.2); Absolute Lymphocytes 0.6 10^3/uL (1.2-3.4); Absolute Monocytes 1.1 10^3/uL (0.1-0.6); Absolute Neutrophils 9.1 10^3/uL (1.4-6.5); Hematocrit 40.2 % (37.0-47.0); Hemoglobin 12.4 g/dL (12.0-16.0); Mean Corp Hgb Conc. 30.8 g/dL (33.0-37.0); Mean Corpuscular Hgb 26.3 pg (27.0-31.0); Mean Corpuscular Volume 85.2 fL (81.0-99.0); Mean Platelet Volume 8.5 fL (7.4-10.4); Platelet Count 319 10^3/uL (130-400); Red Blood Cell Count 4.72 10^6/uL (4.20-5.40); Red Cell Dist. Width 25.5 % (11.5-14.5); White Blood Cell Count 10.9 10^3/uL (4.8-10.8)
[2024-02-05 09:02] VITALS: BP 132/81
[2024-02-05 09:46] LABS: ALT (SGPT) 47 U/L (0-35); AST (SGOT) 48 U/L (14-36); Albumin 3.2 g/dl (3.5-5.0); Alkaline Phosphatase 131 U/L (38-126); Blood Urea Nitrogen 11 mg/dl (7-17); Calcium 8.9 mg/dl (8.4-10.2); Carbon Dioxide 30 mmol/L (22-30); Chloride 95 mmol/L (98-107); Glucose 133 mg/dl (70-99); Magnesium 0.9 mg/dl (1.6-2.3); Potassium 3.7 mmol/L (3.5-5.1); Sodium 132 mmol/L (135-145); Total Bilirubin 0.5 mg/dl (0.2-1.3); Total Protein 6.2 g/dl (6.3-8.2); eGFR > 60.00
[2024-02-05] MEDS: MAGNESIUM SULFATE 108 GRAMS IV (10:38)
[2024-02-08] MEDS: MAGNESIUM SULFATE 108 GRAMS IV (08:58)
[2024-02-08 09:11] VITALS: BP 114/76
[2024-02-08 09:45] LABS: Urine Red Blood Cell None Seen /HPF (0-2)
[2024-02-08] MEDS: NSS 1000 IV (09:51)
== END 2024-02-14 15:08 | disposition home or self-care (01) ==
LOC: OID 08:28
PROVIDERS: ATTENDING PHYSICIAN Internal Medicine Hematology & Oncology; OTHER PHYSICIAN Internal Medicine
DX: E83.42 Hypomagnesemia (principal); C34.91 Malignant neoplasm of unspecified part of right bronchus or lung; J96.21 Acute and chronic respiratory failure with hypoxia; J18.8 Other pneumonia, unspecified organism; E87.6 Hypokalemia; J44.9 Chronic obstructive pulmonary disease, unspecified; J96.20 Acute and chronic respiratory failure, unspecified whether with hypoxia or hypercapnia; D64.81 Anemia due to antineoplastic chemotherapy; E87.1 Hypo-osmolality and hyponatremia; G40.409 Other generalized epilepsy and epileptic syndromes, not intractable, without status epilepticus
CPT/HCPCS: 96365; 96367; 36415; 80053; 81003; 81015; 83735; 85025; 87070; 87086; 87205; 96366; 96375; J1439

== ENCOUNTER 2024-02-09 11:37 | Inpatient (IN) | payer MEDICARE, OTHER, SELFPAY ==
[2024-02-09] VITALS (11 sets, daily range): BP systolic 97–147; BP diastolic 62–78; BMI 19.3; BMI 20.9
--- NOTE | 2024-02-09 08:48 | ED.GENMED ---
History of Present Illness
General
Chief Complaint: Breathing Problem
Source: patient and ambulance crew
Exam Limitations: none
Time Seen by Provider: 02/09/24 08:30
Nursing documentation reviewed up to this point in time: agreed with
Travel History
Have you had any contact with someone who has COVID-19?: No
Do you have any symptoms of coronavirus? Fever > 100 degrees, chills, cough, shortness of breath, sore throat, loss of taste or smell, muscle aches, or headache?: No
History of Present Illness
History of Present Illness:
74 yo female presents to the emergency department complaining of shortness of breath. Got worse this morning she does have persistent shortness of breath. She has a history of lung cancer. She also has a history of COPD. She states she quit
smoking 30 years ago.
Past History
Past History
ED Past Medical History: Cancer, COPD, HTN, Seizures and Other (Crohn's disease, anxiety)
ED Past Surgical History: Bowel resection (For Crohn's disease with a subsequent colostomy), Cholecystectomy and Other (Partial lung lobectomy)
Social History
Tobacco: Former smoker
Alcohol: None
Drug: None
Personal:
Living: alone
Employment: Employed
Family History
Family History: Other (No significant)
Review of Systems
Review of Systems
Allergies reviewed?: Yes
All Other Systems: Not applicable
Constitutional: Reports no symptoms
EENT: Reports no symptoms
Respiratory: Reports trouble breathing
Cardiac: Reports no symptoms
ABD/GI: Reports no symptoms
: Reports no symptoms
Musculoskeletal: Reports no symptoms
Skin: Reports no symptoms
Neurological: Reports no symptoms
Endocrine: Reports no symptoms
Hematologic/Lymphatic: Reports no symptoms
Psychiatric: Reports no symptoms
Phy Exam
Physical Exam
Physical Exam:
Physical Exam
General: Moderate respiratory distress, afebrile
Neck: supple. no meningeal signs. normal posterior pharynx
Heart: s1/s2 regular rate and rhythm, no murmur. equal radial
pulses.
HEENT: Pupils equal round reactive to light, EOMI
Lungs: Moderate respiratory distress, decreased breath sounds bilaterally, more decreased on left side
Abdomen: normal bowel sounds. not tender. no CVAT
Neuro: alert and oriented. no focal neurological deficits cranial nerves II through XII intact
Skin: no rash
Psychiatric: well kept. interactive and cooperative
Extremities: no edema. no calf tenderness. negative homans. good distal pulses
Scores
Heart Failure Risk
Heart Failure Risk Score: Not Applicable
Course
Orders/Labs/Results
Orders:
Orders
02/09/24 Breakfast
Cholesterol Lowering
At Your Request: Full Participation
Does patient need a safe tray?: No
Fluid Restriction: 1500 mL/day (50 oz)
Cholesterol Lowering: Sodium, 2 Gram
02/09/24 08:43
Cardiac Monitoring- Treatment ONCE
IV Insert/Care/Rem.- Treatment PRN
02/09/24 08:46
Ipratropium/Albuterol Sulfate [Duoneb] 3 ml INH R NOW STA
CR Chest Portable - 1 View Urgent
Comment:
Reason For Exam: short of breath
Reason Study Needs to be Portable: Patient Unstable
02/09/24 08:52
Complete Blood Count/With Diff Urgent
Comprehensive Metabolic Panel Urgent
Lactic Acid Q4H
Comment: CANCEL 2nd LACTIC ACID IF 1st LACTIC ACID IS LESS THAN 2
Magnesium Urgent
Blood Culture Q30M
MABLE Source: Blood/Venous
Specimen Description:
Blood Culture Q30M
MABLE Source: Blood/Venous
Specimen Description:
02/09/24 10:00
Cefepime HCl [Maxipime] 2,000 mg IV NOW STA
Magnesium Sulfate 2 Gram/50 ml [Magnesium Sulfate] 2 gram in 50 ml IV NOW
Vancomycin 1 Gram/200 ml [Vancocin] 1 gram in 200 ml IV NOW
02/09/24 10:13
Lorazepam [Ativan] 1 mg IV NOW STA
02/09/24 11:[address] Non Medication Order As Directed
Physician Order: NOTIFY MD WHEN MED REC DONE
02/09/24 11:05
Admit/Transfer Patient As Directed
Co-Sign Provider:
Level of Care: Inpatient admission
Assign to:: Telemetry
Physician / Group: paulette shabazz
Diagnosis: Acute dyspnea, chronic hypoxic respiratory failure, pneumonia,COPD
Reason for Telemetry: Arrhythmia
Date to Stop Telemetry: 02/12/24
Time to Stop Telemetry: 11:00
Reason for Hospitalization: Acute dyspnea, chronic hypoxic respiratory failure, pneumonia,COPD
Expected length of stay greater than two midnights?: Yes
ELOS- Estimated Length of Stay in days: 3
I certify the patient meets the requirements for IP care: Yes
02/09/24 11:16
Code Status As Directed
Resuscitation Status: Full Code
02/09/24 11:19
Ipratropium Nebs [Atrovent Nebules] 0.5 mg INH R Q6HPRN PRN
Levalbuterol [Xopenex 1.25 mg Inhalant Solution] 1.25 mg INH R Q6HPRN PRN
Xopenex Reason for Use As Directed
Reason for ordering Xopenex instead of Albuterol: tachycardia
02/09/24 11:27
PULMONARY CONSULT Routine
Consulting Provider: Sachin Cantrell
Was physician already notified: Yes
02/09/24 12:00
Dexamethasone Sod Phosphate [Decadron] 4 mg IV Q8H
02/09/24 13:25
Benzonatate [Tessalon Perles] 200 mg PO TIDPRN PRN
Bisacodyl [Dulcolax] 10 mg RECTAL [id number] PRN
Cefepime HCl [Maxipime] 1,000 mg IV Q8H
Docusate W/Senna [Senokot-S] 1 tablet PO BIDPRN PRN
Ondansetron HCl [Zofran] 8 mg PO Q6HPRN PRN
Oxycodone [Roxicodone] 5 mg PO Q4HPRN PRN
Polyethylene Glycol Powder [Miralax] 17 grams PO DAILYPRN PRN
VANCOMYCIN Pharmacy to Dose [VANCOCIN Pharmacy to Dose] 1 each Pharmacy To Prepare [Call Pharmacy To Prepare] 0 ml IV PER PROTOCOL
02/09/24 13:25
Activity As Directed
Activity Level: As Tolerated
Intake/ Output As Directed
Frequency: Per unit guidelines
Pneumatic Compression Sleeves As Directed
Type: Knee high
Vital Signs As Directed
Frequency: Per unit guidelines
Weight As Directed
Frequency: Daily
Pulse Ox/spot Check [RESP] Routine
Quantity: 1
DX Deep Vein Thrombosis Video Routine
02/09/24 14:00
Ipratropium Nebs [Atrovent Nebules] 0.5 mg INH R TID
Levalbuterol [Xopenex 1.25 mg Inhalant Solution] 1.25 mg INH R TID
02/09/24 14:33
Oxycodone [Roxicodone] 10 mg PO Q4HPRN PRN
02/09/24 20:00
Apixaban [Eliquis] 5 mg PO BID
Budesonide [Pulmicort] 0.5 mg INH R BID
Lorazepam [Ativan] 1 mg PO BID
Metoprolol Xl [Toprol Xl] 50 mg PO BID
Sodium Chloride 1 gram PO BID
02/10/24 06:00
Complete Blood Count/With Diff IN AM
Comprehensive Metabolic Panel IN AM
02/10/24 08:00
Lisinopril [Zestril] 2.5 mg PO DAILY
Pantoprazole [Protonix] 40 mg PO DAILY
02/11/24 06:00
Complete Blood Count/With Diff IN AM
Comprehensive Metabolic Panel IN AM
02/12/24 06:00
Complete Blood Count/With Diff IN AM
Comprehensive Metabolic Panel IN AM
02/12/24 08:00
cholecalciferol (vitamin D3) 1,250 mcg PO TU@0800
02/12/24 11:00
DC Protocol for Telemetry ONCE
02/13/24 06:00
Complete Blood Count/With Diff IN AM
Comprehensive Metabolic Panel IN AM
02/14/24 06:00
Complete Blood Count/With Diff IN AM
Comprehensive Metabolic Panel IN AM
Abnormal Lab Results
02/09/24
08:52
WBC 11.0 H 10^3/uL
(4.8-10.8)
MCH 26.4 L pg
(27.0-31.0)
MCHC 31.6 L g/dL
(33.0-37.0)
RDW 26.1 H %
(11.5-14.5)
Abs Immat Gran (auto) 0.1 H 10^3/uL
(0-0.05)
Absolute Neuts (auto) 10.2 H 10^3/uL
(1.4-6.5)
Absolute Lymphs (auto) 0.5 L 10^3/uL
(1.2-3.4)
Immature Gran % 0.6 H %
(0-0.5)
Neutrophils % 93.5 H %
(42.2-75.2)
Lymphocytes % 4.9 L %
(20.5-51.1)
Monocytes % 0.6 L %
(1.7-9.3)
Sodium 132 L mmol/L
(135-145)
Chloride 95 L mmol/L
(98-107)
Carbon Dioxide 32 H mmol/L
(22-30)
Creatinine 0.4 L mg/dL
(0.6-1.0)
Glucose 103 H mg/dl
(70-99)
Magnesium 1.4 L mg/dl
(1.6-2.3)
ALT 42 H U/L
(0-35)
Total Protein 5.8 L g/dl
(6.3-8.2)
Albumin 3.0 L g/dl
(3.5-5.0)
02/09/24 08:52
02/09/24 08:52
Vital Signs
Initial and Last Documented VS:
Initial Vital Signs
Temp Pulse Resp BP Pulse Ox
98.7 F 102 24 147/77 97
02/09/24 08:28 02/09/24 08:28 02/09/24 08:28 02/09/24 08:28 02/09/24 08:28
Last Documented Vital Signs
Temp Pulse Resp BP Pulse Ox
97.9 F 73 20 128/74 99
02/09/24 13:34 02/09/24 14:14 02/09/24 14:14 02/09/24 13:34 02/09/24 14:14
MDM/Problems Addressed
Differential Diagnosis Includes:
pneumonia, chf
MDM/Problems Addressed:
74 yo female with pneumonia and COPD exacerbation. Admit to hospitalist.
Chronic conditions affecting care: COPD and Cancer (Lung)
Acute Exacerbation and/or Progression of Chronic Illness: COPD
*Radiology
Radiology exam reviewed: radiology read reviewed (Chest x-ray shows bilateral pleural effusions and right-sided pneumonia)
*Pulse Oximetry
Patient hypoxic: yes
*EKG
Interpreted by ED Provider?: NA
*Social Media Campaign Manager Interpretation
Rate: normal
Interpretation: normal
Heart Rate: 75
Rhythm: sinus
*Critical Care Note
Total Time (30-74mins, 75-104mins- exclusive of procedures): Not Applicable
Data Reviewed
Review of Other/Old Records Reveals: Discharge Summary (Prior admission for COPD exacerbation, pneumonia, pleural effusion 01/31/24)
Patient Management
Discussion with other providers: Hospitalist
Escalation/DeEscalation of care consider admission/obs:
admit indicated
ED Attending Note
-
Portions of this chart may have been created with voice recognition software.� Occasional wrong word or��sound alike� substitutions may have occurred due to the inherent limitations of voice recognition software.
Discharge Plan
Departure
Patient Disposition: Admit
Date of Disposition: 02/09/24
Time of Disposition: 10:01
Admit to: IMU
Presentation/result/management discussed w/ accepting MD/DO: Hospitalist
Patient with high blood pressure during this ER visit?: Yes
Condition: Fair
Discharge Problem:
Pneumonia, Hypomagnesemia, COPD (chronic obstructive pulmonary disease), Lung cancer, Pleural effusion
Interventions
Interventions:
*Risk Screen - Suicide Last Done: 02/09/24 13:55
*General Assessment Last Done: 02/09/24 08:34
*Neglect/Abuse Screening Last Done: 02/09/24 08:34
*ED COVID-19 Vaccine History Last Done: 02/09/24 13:55
*Nursing Disposition Last Done: 02/09/24 13:13
ED- Cardiac Assessment Last Done: 02/09/24 09:00
ED- Pulmonary Assessment Last Done: 02/09/24 08:47
Discharge Date and Time
Discharge Date/Time: 02/09/24 13:13
[2024-02-09] MEDS: DUONEB 3 ML INH (08:59)
[2024-02-09 09:11] LABS: % Basophils 0.2 % (0-2); % Eosinophils 0.2 % (0-6); % Immature Granulocytes 0.6 % (0-0.5); % Lymphocytes 4.9 % (20.5-51.1); % Monocytes 0.6 % (1.7-9.3); % Neutrophils 93.5 % (42.2-75.2); Absolute Immature Granulocytes 0.1 10^3/uL (0-0.05); Absolute Lymphocytes 0.5 10^3/uL (1.2-3.4); Absolute Monocytes 0.1 10^3/uL (0.1-0.6); Absolute Neutrophils 10.2 10^3/uL (1.4-6.5); Mean Corp Hgb Conc. 31.6 g/dL (33.0-37.0); Mean Corpuscular Hgb 26.4 pg (27.0-31.0); Mean Corpuscular Volume 83.7 fL (81.0-99.0); Mean Platelet Volume 9.2 fL (7.4-10.4); Nucleated Red Blood Cells % 0 %; Platelet Count 233 10^3/uL (130-400); Red Blood Cell Count 4.54 10^6/uL (4.20-5.40); Red Cell Dist. Width 26.1 % (11.5-14.5)
[2024-02-09 09:26] LABS: ALT (SGPT) 42 U/L (0-35); AST (SGOT) 34 U/L (14-36); Alkaline Phosphatase 115 U/L (38-126); Blood Urea Nitrogen 9 mg/dl (7-17); Calcium 8.7 mg/dl (8.4-10.2); Carbon Dioxide 32 mmol/L (22-30); Chloride 95 mmol/L (98-107); Estimated Creatinine Clearance 64 ml/min; Glucose 103 mg/dl (70-99); Lactic Acid 1.6 mmol/L (0.7-2.0); Magnesium 1.4 mg/dl (1.6-2.3); Potassium 3.6 mmol/L (3.5-5.1); Sodium 132 mmol/L (135-145); Total Bilirubin 0.6 mg/dl (0.2-1.3); Total Protein 5.8 g/dl (6.3-8.2); eGFR > 60.00
[2024-02-09 09:29] LABS: Anisocytosis 1+; Hypochromasia 1+; Normal RBC Morphology No; Ovalocytes 1+; Polychromasia 1+
[2024-02-09] MEDS: ATIVAN 1 MG IV (10:27)
[2024-02-09] MEDS: MAXIPIME 2000 MG IV ×2 (10:29→17:15)
[2024-02-09] MEDS: MAGNESIUM SULFATE 50 IV (10:44)
[2024-02-09] MEDS: VANCOCIN 200 IV (11:15)
--- NOTE | 2024-02-09 11:20 | HPS.HSE ---
Family Physician
-
Family Physician: Marilyn Cortez
Chief Complaint
-
sob
History of Present Illness
74-year-old female with past medical history of non-small cell lung carcinoma, COPD, hypertension, hyperlipidemia, history of indwelling Pleurx catheter, Chemo induced pneumonitis, seizure disorder, Crohn's disease, anxiety, depression came to the
hospital with worsening shortness of breath. In the ED chest x-ray was concerning for pneumonia. Patient denies any chest pain, fever. Patient has been having periods of pneumonia/pneumonitis from past few months. Last admission pneumonitis was
started secondary to chemo and patient symptoms were improving on prednisone. She denies any sick contacts. Denies any abdominal pain, nausea, vomiting, diarrhea, constipation.
Medical History
Past Medical History
Past Medical History: Reports Cancer, HTN, Hypercholesterolemia, Seizures and Other (Chronic disease, anxiety, non-small cell lung cancer)
Past Surgical History: Reports Bowel Resection, Cholecystectomy and Other (Partial lung lobectomy)
Social History
Tobacco: Former Smoker
Family History
Family History: Not pertinent
Allergies / Home Medications
Allergies reflects when Allergies were last updated in [facility].
Home Medications with original date entered in [facility]
Allergy/Medication List:
Allergies
Allergy/AdvReac Type Severity Reaction Status Date / Time
acetaminophen [From Vicodin] Allergy Elevates Verified 02/08/24 09:12
ALT, AST
adagrasib [From Krazati] Allergy Unknown Verified 02/08/24 09:12
hydrocodone bitartrate Allergy Vomiting-'deathly Verified 02/08/24 09:12
[From Vicodin] sick in
stomach'
latex Allergy redness Verified 02/08/24 09:12
and
itching,
rash
meperidine HCl [From Demerol] Allergy Nausea / Verified 02/08/24 09:12
Vomiting
propoxyphene Allergy 'DARVOCET' Verified 02/08/24 09:12
[From Darvocet-N] PER
WRITTEN
ORDER FOR
03/24/19
Home Medications
phenobarbital 64.8 mg tablet 64.8 mg PO QPM Neurological Condition 03/12/19
tiotropium bromide 18 mcg capsule with inhalation device (Spiriva with HandiHaler) 1 cap inhalation R DAILY Lung/Breathing Issues 09/26/22
sodium chloride 1,000 mg soluble tablet 1,000 mg PO BID Supplement #60 tabs 09/20/23
ascorbic acid (vitamin C) 500 mg tablet (Vitamin C) 500 mg PO DAILY Supplement 11/09/23
loratadine 10 mg tablet (Claritin) 10 mg PO DAILY Allergies 11/09/23
fluticasone furoate 200 mcg-vilanterol 25 mcg/dose inhalation powder (Breo Ellipta) 1 inh inhalation R DAILY Lung/Breathing Issues 11/22/23
lorazepam 1 mg tablet (Ativan) 1 mg PO BID Mental Health/Anxiety 12/27/23
bevacizumab 25 mg/mL intravenous solution (Avastin) 0 mg IV Q3W Cancer ##0 12/28/23
calcitonin (salmon) 200 unit/actuation nasal spray 1 spray intranasal (ALT) DAILY RENAL 01/21/24
cholecalciferol (vitamin D3) 1,250 mcg (50,000 unit) capsule 1,250 mcg PO TU@0800 Supplement 01/21/24
cyanocobalamin (vitamin B-12) 1,000 mcg/mL injection solution 1,000 mcg IM QMONTH Supplement 01/21/24
cyclosporine 0.05 % eye drops in a dropperette (Restasis) 1 drp BOTH EYES Q12H Eye Condition 01/21/24
diphenoxylate-atropine 2.5 mg-0.025 mg tablet 1 - 2 tab PO QIDPRN PRN diarrhea 01/21/24
folic acid 1 mg tablet 1 mg PO DAILY Supplement 01/21/24
lisinopril 2.5 mg tablet 2.5 mg PO DAILY Blood Pressure 01/21/24
rosuvastatin 5 mg tablet 5 mg PO QPM High Cholesterol 01/21/24
benzonatate 100 mg capsule 200 mg (2 x 100 mg) PO TIDPRN PRN Cough #7 caps 01/23/24
guaifenesin 600 mg tablet, extended release 12 hr (Mucinex) 600 mg PO DAILY Congestion ##0 01/27/24
apixaban 5 mg tablet (Eliquis) 5 mg PO BID #60 tabs 01/31/24
budesonide 0.5 mg/2 mL suspension for nebulization 0.5 mg (2 mL) inhalation R BID Pulmonitis #60 mL 01/31/24
metoprolol succinate 50 mg tablet,extended release 24 hr 50 mg PO BID HTN #60 tabs 01/31/24
ondansetron HCl 4 mg tablet 8 mg (2 x 4 mg) PO Q6HPRN PRN Nausea/Vomiting #60 tabs 01/31/24
pantoprazole 40 mg tablet,delayed release 40 mg PO DAILY GERD #30 tabs 01/31/24
prednisone 20 mg tablet 40 mg (2 x 20 mg) PO DAILY Pneumonitis 30 days #60 tabs 01/31/24
fluvoxamine 50 mg tablet 50 mg PO DAILY 02/09/24
oxycodone 5 mg tablet 5 mg PO Q4HPRN PRN sevre pain 02/09/24
sulfamethoxazole 800 mg-trimethoprim 160 mg tablet (Bactrim DS) 1 tab PO MOWEFR@0800 02/09/24
Review of Systems
-
History Source: Patient
A 12 point ROS was completed and negative except as noted: Yes
Physical Exam
Vital Signs
Vital Signs
Temp Pulse Resp BP Pulse Ox
98.7 F 102 24 147/77 99
02/09/24 08:28 02/09/24 08:28 02/09/24 08:28 02/09/24 08:31 02/09/24 08:47
Physical Exam
General: Well Nourished and No Apparent Distress
HEENT: NormoCephalic and Anicteric
Respiratory: Clear and Wheezes
Cardiac: S1/S2 and Regular Rhythm
Breast: Deferred by me
GI: Soft, Non Tender and Non Distended
Rectal: Deferred by Provider
Genito-urinary: No [place]
Musculoskeletal: No Edema
Neuro: Awake, Alert, Oriented and AO x 3
Psych: Calm
Laboratory Results
-
02/09/24 08:52
02/09/24 08:52
Laboratory Results
Lactic Acid 1.6 mmol/L (0.7-2.0) 02/09/24 08:52
Total Bilirubin 0.6 mg/dl (0.2-1.3) 02/09/24 08:52
AST 34 U/L (14-36) 02/09/24 08:52
ALT 42 U/L (0-35) H 02/09/24 08:52
Alkaline Phosphatase 115 U/L (38-126) 02/09/24 08:52
Data Reviewed
-
Lab Data: Labs Reviewed by me and Discussed with Patient
Impression/Plan
-
Worsening dyspnea and shortness of breath, chronic hypoxic respiratory failure suspect multifactorial secondary to pneumonia/pneumonitis, COPD exacerbation along with non-small cell lung carcinoma
Per patient she is using 5 L nasal cannula at home
Continue with antibiotics
Start Decadron,nebs
Pulmonary evaluation
check procal
Multiple admissions with worsening shortness of breath in past few months.
Non-small cell lung carcinoma
Recurrent malignant right pleural effusion
On Avastin. Now follows up with Dr. Ahmadi outpatient
Dr Gray ([facility]) that she also follows
Multiple admissions the past few months with worsening shortness of breath. Would prefer oncology to discuss goals of care with patient and to review options for further therapy.
oncology consulted
COPD exacerbation
Continue Decadron
Xopenex, ipratropium
Recent pulmonary embolism
Continue Eliquis
History of hypertension
Continue lisinopril and Toprol
Crohn's disease status post subtotal colectomy with ileostomy
Monitor
Hypomagnesemia
Replete
Hyperlipidemia
Seizure disorder
Continue phenobarbital
Anxiety/depression
Chronic hyponatremia
Sodium tabs
DVT prophylaxis
Eliquis
Code status
full code
I spent a total of 77 minutes with the patient or on the floor. More than 50% of this time involved counseling and coordination of care.
[2024-02-09] MEDS: DECADRON 4 MG IV ×2 (12:59→20:13)
--- NOTE | 2024-02-09 13:58 | CON.PUL ---
Consultation
Consultation Request
Date/Time Consultation Requested: 02/09/2024 - 112
Date/Time Consultation Performed: 02/09/2024 - 1205
Requesting Provider: Dr. Lugo
Performing Provider: Dr. Cantrell
Reason for Consultation: SOB/Hypoxia
Medical History
-
Chief Complaint: SOB
History of Present Illness:
74-year-old former tobacco smoker with PMhx of moderate COPD, TCP, NSCLC s/p RLL lobectomy with recurrence, Crohn's disease, anxiety, HLD, HTN and seizure disorder who p/w worsening SOB. SHe also endorses worsening cough about 1-2 days prior to
coming in to ER. She believes her cough is now worse than her baseline cough. She was recently hospitalized from 11/21 - 11/27/2023 for MF-PNA with acute COPD exacerbation, DC'd on prednisone taper and Abx. She also was last hospitalized here from
01/26 - 01/31/2024 with R-sided PE, and suspected R-sided pneumonitis vs MF-PNA, however the former was suspected. She was DC'd home on prednisone + Eliquis. She's now here with worsening SOB, cough, was afebrile in ER, , HR 102, RR 24 and SpO2 97%
on 6L/min. Procal 0.07, urine and blood Cx collected, and CXR showed b/l pleural effusions with extensive R-sided pneumonitis/pneumonia. She says she was on prednisone DEVELOPMENT EXPERT by her Oncologist, Dr. Camacho. She is currently on 5L/min, and she uses
this at home. DEnies CP, JIMÉNEZ, abd pain, f/c.
PMHx: COPD. Former smoker. Lung cancer status post partial right lower lobectomy with recurrence, KRAS positive status post chemo/immuno therapy. Recurrent right pleural effusion status post Pleurx catheter. Crohn's disease status post
colostomy. Hypertension. Seizure history. Anxiety.
PSHx: Bowel resection for Crohn's. Cholecystectomy. Partial right lower lobectomy
Past Medical History
Past Medical History: Other (above as per HPI)
Past Surgical History: Other (above as per HPI)
Social History
Tobacco: Former Smoker
Alcohol: None
Drug: None
Family History
Family History: Reviewed & Not Pertinent
Allergies / Home Medications
Allergies
Allergy/AdvReac Type Severity Reaction Status Date / Time
acetaminophen [From Vicodin] Allergy Elevates Verified 02/08/24 09:12
ALT, AST
adagrasib [From Krazati] Allergy Unknown Verified 02/08/24 09:12
hydrocodone bitartrate Allergy Vomiting-'deathly Verified 02/08/24 09:12
[From Vicodin] sick in
stomach'
latex Allergy redness Verified 02/08/24 09:12
and
itching,
rash
meperidine HCl [From Demerol] Allergy Nausea / Verified 02/08/24 09:12
Vomiting
propoxyphene Allergy 'DARVOCET' Verified 02/08/24 09:12
[From Darvocet-N] PER
WRITTEN
ORDER FOR
03/24/19
Home Medications
�Medication �Instructions �Recorded �Confirmed �Last Taken �Type
phenobarbital 64.8 mg tablet 64.8 mg PO QPM Neurological 03/12/19 02/09/24 02/08/24 History
Condition
tiotropium bromide 18 mcg capsule 1 cap inhalation R DAILY 09/26/22 02/09/24 02/09/24 History
with inhalation device (Spiriva Lung/Breathing Issues
with HandiHaler)
sodium chloride 1,000 mg soluble 1,000 mg PO BID Supplement #60 tabs 09/20/23 02/09/24 02/09/24 Rx
tablet
ascorbic acid (vitamin C) 500 mg 500 mg PO DAILY Supplement 11/09/23 02/09/24 02/09/24 History
tablet (Vitamin C)
loratadine 10 mg tablet (Claritin) 10 mg PO DAILY Allergies 11/09/23 02/09/24 02/09/24 History
fluticasone furoate 200 1 inh inhalation R DAILY 11/22/23 02/09/24 02/09/24 History
mcg-vilanterol 25 mcg/dose Lung/Breathing Issues
inhalation powder (Breo Ellipta)
lorazepam 1 mg tablet (Ativan) 1 mg PO BID Mental Health/Anxiety 12/27/23 02/09/24 02/09/24 History
calcitonin (salmon) 200 1 spray intranasal (ALT) DAILY 01/21/24 02/09/24 02/01/24 History
unit/actuation nasal spray RENAL
cholecalciferol (vitamin D3) 1,250 1,250 mcg PO TU@0800 Supplement 01/21/24 02/09/24 01/29/24 History
mcg (50,000 unit) capsule
cyanocobalamin (vitamin B-12) 1,000 mcg IM QMONTH Supplement 01/21/24 02/09/24 01/08/24 History
1,000 mcg/mL injection solution
cyclosporine 0.05 % eye drops in a 1 drp BOTH EYES Q12H Eye Condition 01/21/24 02/09/24 02/09/24 History
dropperette (Restasis)
diphenoxylate-atropine 2.5 1 - 2 tab PO QIDPRN PRN diarrhea 01/21/24 02/09/24 01/27/24 History
mg-0.025 mg tablet 1 tablet
folic acid 1 mg tablet 1 mg PO DAILY Supplement 01/21/24 02/09/24 02/09/24 History
lisinopril 2.5 mg tablet 2.5 mg PO DAILY Blood Pressure 01/21/24 02/09/24 02/09/24 History
rosuvastatin 5 mg tablet 5 mg PO QPM High Cholesterol 01/21/24 02/09/24 01/31/24 History
guaifenesin 600 mg tablet, 600 mg PO DAILY Congestion ##0 01/27/24 02/09/24 02/09/24 History
extended release 12 hr (Mucinex)
apixaban 5 mg tablet (Eliquis) 5 mg PO BID #60 tabs 01/31/24 02/09/24 02/09/24 Rx
metoprolol succinate 50 mg 50 mg PO BID HTN #60 tabs 01/31/24 02/09/24 02/09/24 Rx
tablet,extended release 24 hr
ondansetron HCl 4 mg tablet 8 mg (2 x 4 mg) PO Q6HPRN PRN 01/31/24 02/09/24 02/01/24 Rx
Nausea/Vomiting #60 tabs
pantoprazole 40 mg tablet,delayed 40 mg PO DAILY GERD #30 tabs 01/31/24 02/09/24 02/09/24 Rx
release
prednisone 20 mg tablet 40 mg (2 x 20 mg) PO DAILY 01/31/24 02/09/24 02/09/24 Rx
Pneumonitis 30 days #60 tabs
fluvoxamine 50 mg tablet 50 mg PO DAILY 02/09/24 02/09/24 02/09/24 History
oxycodone 5 mg tablet 5 mg PO Q4HPRN PRN sevre pain 02/09/24 02/09/24 Unknown History
sulfamethoxazole 800 1 tab PO MOWEFR@0800 02/09/24 02/09/24 02/08/24 History
mg-trimethoprim 160 mg tablet
(Bactrim DS)
Review of Systems
-
History Source: Patient
All other systems: Negative unless noted
Vitals / Labs / Diagnostic Testing
Vital Signs
Temp Pulse Resp BP Pulse Ox
97.9 F 91 18 128/74 100
02/09/24 13:34 02/09/24 13:34 02/09/24 13:34 02/09/24 13:34 02/09/24 13:34
Lab Data
02/09/24 08:52
02/09/24 08:52
Diagnostic Testing:
Physical Exam
-
HEENT: Normocephalic and Anicteric
Cardiovascular: S1/S2 and Peripheral Edema (n)
Respiratory: Wheeze (n), Rales (left lung base), Rhonchi (n), Non-Labored Respirations and Other (Reduced BS at right base)
GI: Soft, Non Distended, Non Tender and Normal Bowel Sounds
Neurology: Awake and Alert
Skin: Warm and Dry
General: Respiratory Distress (n) and Comfortable
Assessment
-
Assessment: 74-year-old former tobacco smoker with PMhx of moderate COPD, TCP, NSCLC s/p RLL lobectomy with recurrence, Crohn's disease, anxiety, HLD, HTN and seizure disorder who p/w worsening SOB. SHe also endorses worsening cough about 1-2 days
prior to coming in to ER. She believes her cough is now worse than her baseline cough. She was recently hospitalized from 11/21 - 11/27/2023 for MF-PNA with acute COPD exacerbation, DC'd on prednisone taper and Abx. She also was last hospitalized
here from 01/26 - 01/31/2024 with R-sided PE, and suspected R-sided pneumonitis vs MF-PNA, however the former was suspected. She was DC'd home on prednisone + Eliquis. She's now here with worsening SOB, cough, was afebrile in ER, , HR 102, RR 24
and SpO2 97% on 6L/min. Procal 0.07, urine and blood Cx collected, and CXR showed b/l pleural effusions with extensive R-sided pneumonitis/pneumonia. She says she was on prednisone DEVELOPMENT EXPERT by her Oncologist, Dr. Camacho. She is currently on 5L/min,
and she uses this at home. DEnies CP, JIMÉNEZ, abd pain, f/c.
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
Hypertension
Seizure disorder
COPD
Anxiety/Depressive disorder
Osteoarthritis
Ruptured gallbladder and poss stones in bile duct s/p Cholecystectomy 1975
Pneumonia(2016)
Hyponatremia
Adenocarcinoma RLL, RUL/NSCLC, known to [place] s/p Right lower lobectomy (08/22/2022)
Recurrent malignant pleural effusions s/p pleurx R
Hay Fever
Appendectomy(1970)
Delayed closure of abdominal wounds (1970)
Partial Small Bowel Resection(2014)
Facelift 2 surgeries back to back (03/25/19)
Bilat eye lift - Sep 2020
Cataract-lens implants January 2021
Impression:
#Acute respiratory failure with hypoxia - suspect this is multifactorial from COPD exacerbation in setting of volume overload and recent pneumonitis; difficult to rule out if she has a recurrent PNA
#NSCLC s/p r pleurx
#Recent Dx acute R_sided submassive PE now on Eliquis
#Hyponatremia
#Metabolic alkalosis
Plan:
- Trial of diuresis - I will give 20mg IV lasix and assess her response
- Pain control
- Continue broad spectrum ABx
- Systemic steroids and wean as tolerated - currently on decadron 4mg IV q8hr; follow up infectious up; resume her PCP ppx w/ Bactrim DS TIW
- Maintain SpO2 >88-94% with supplemental O2 as needed
- Incentive spirometer encouraged
- check blood gas given her serum HCO3 is elevated
- Replete electrolytes with K>4, Mg>2
- Maintain euglycemia with goal BG >100 and <180
- prn nebulized bronchodilators
- Continue atrovent and xopenex - consider resuming Symbicort and Spiriva in next 1-2 days
- she continues to contemplate her life and she seems like she would consider comfort care if she worsens
- DVT ppx
Pulmonary service will continue to follow along.
(Patient seen and evaluated on 02/09/2024)
Data:
CXR 02-09-2024: Bilateral pleural effusions and extensive right lung airspace disease/pneumonia, slightly progressed.
[2024-02-09] MEDS: XOPENEX 1.25 MG INHALANT SOLUTION INH ×2 (14:11→18:24)
[2024-02-09] MEDS: ATROVENT NEBULES 0.5 MG INH ×2 (14:11→18:23)
[2024-02-09 14:36] LABS: Procalcitonin 0.07 ng/ml (0.0-0.25)
--- NOTE | 2024-02-09 15:31 | PHA.VAN.IN ---
Assessment
- Assessment
Renal Function: Appears similar to baseline
Concomitant Antimicrobials: cefepime
AUC Dosing Plan
- Dosing Variables
Dosing Weight (kg): 52
Dosing CrCl (ml/min): 64
Vd coefficient (L/kg): 0.7
- Empiric Dosing
Initial / Loading Dose: 1000mg - 02/08 11:15
Maintenance Regimen: Vanc 500mg Q12H starting at 1800 in lieu of loading dose
Estimated AUC (mcg*h/mL): 491
Estimated Peak (mcg*h/mL): 27.6
Estimated Trough (mcg/ml): 14.6
Estimated Half Life (H): 12
Patient with borderline renal clearance between Q12 and Q24 regimen
Will initiate with Q12H regimen as patients with cancer may have increased clearance (Pharmacotherapy. 2019;40(12):4622-1746)
- Monitoring
No levels ordered at this time: consider levels in next few days
MRSA Screen: Ordered per protocol
Pharmacokinetics Vancomycin I
- -
Patient Age: 74
Patient Sex: Female
Vancomycin Day #: 1
Indication: Pulmonary/Respiratory
Requesting Provider: Dr. Lugo
Pertinent Antimicrobial Allergies:
no pertinent antibiotic allergies
Height / Weight:
Height 5 ft 2 in
Actual Weight 51.71 kg
Pertinent Past Medical History: NSCLC
- Vital Signs / Lab Results
Temp Pulse Resp BP Pulse Ox
98.7 F 89 16 137/78 99
02/09/24 15:26 02/09/24 15:26 02/09/24 15:26 02/09/24 15:26 02/09/24 15:26
Lab Results - Hematology
02/09/24
08:52
WBC 11.0 H
Lab Results - Chemistry
02/09/24
08:52
BUN 9
Creatinine 0.4 L
Estimated Creat Clear 64
Albumin 3.0 L
02/09/24 02/09/24
08:52 12:45
Lactic Acid 1.6 Cancelled
[2024-02-09] MEDS: CRESTOR 5 MG PO (17:16)
[2024-02-09] MEDS: VANCOCIN HCL 500 MG 100 IV (17:16)
[2024-02-09] MEDS: STERILE WATER FOR INJECTION 10 ML IV (17:16)
[2024-02-09] MEDS: LUMINAL 64.7999999999999972 MG PO (17:16)
[2024-02-09] MEDS: PULMICORT 0.5 MG INH (18:23)
[2024-02-09] MEDS: DILAUDID 0.25 MG IV (20:13)
[2024-02-09] MEDS: LASIX 20 MG IV (20:13)
[2024-02-09] MEDS: SODIUM CHLORIDE 1 GRAM PO (20:14)
[2024-02-09] MEDS: ELIQUIS 5 MG PO (20:14)
[2024-02-09] MEDS: ATIVAN 1 MG PO (20:14)
[2024-02-09] MEDS: RESTASIS 0.05% OPHTHALMIC EMULSION 1 DROPS OPHTH (20:14)
[2024-02-09] MEDS: TOPROL XL 50 MG PO (20:15)
[2024-02-09] MEDS: ROXICODONE 5 MG PO (22:38)
--- NOTE | 2024-02-09 23:58 | PTCARENOTE ---
sinus tach in 160's @ times but never sustained. pt asymptomatic and sleeping. in house cra notified. mg and bmp obtained. no other orders. will monitor
[2024-02-10 00:05] LABS: Blood Urea Nitrogen 10 mg/dl (7-17); Calcium 8.6 mg/dl (8.4-10.2); Carbon Dioxide 32 mmol/L (22-30); Chloride 94 mmol/L (98-107); Estimated Creatinine Clearance 67 ml/min; Glucose 132 mg/dl (70-99); Magnesium 1.5 mg/dl (1.6-2.3); Potassium 3.4 mmol/L (3.5-5.1); Sodium 132 mmol/L (135-145); eGFR > 60.00
--- NOTE | 2024-02-10 00:22 | W.PN.UPDATE ---
Update Note
Progress Note Update
RN notified [employer] ATTENDANT patient HR goes in to 150's, 160's, and comes back right down to 80's. 98.3, 112/67, 19, 99% RA Asymptomatic. 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
BMP Mag ordered stat, k 3.4, Mag 1.5 noted. Will replete
RN reported patient is no longer having the episode of tachycardia.
Patient asymptomatic, stable VS.
[2024-02-10] MEDS: KCL 20 MEQ PO (01:08)
[2024-02-10] MEDS: MAGNESIUM SULFATE 50 IV (01:09)
[2024-02-10] MEDS: MAXIPIME 2000 MG IV ×3 (02:37→17:16)
[2024-02-10] MEDS: STERILE WATER FOR INJECTION 10 ML IV ×3 (02:37→17:17)
[2024-02-10] MEDS: ROXICODONE 5 MG PO (02:40)
[2024-02-10 03:05] VITALS: BP 122/71
[2024-02-10 05:23] LABS: Venous Blood Gas B.E. 9.4 mmol/L (-4 to +4); Venous Blood Gas HCO3 35.2 mmol/L (22-27); Venous Blood Gas O2 Sat % 97.4 %; Venous Blood Gas pCO2 53 mmHg (35-48); Venous Blood Gas pH 7.43 (7.32-7.43); Venous Blood Gas pO2 73 mmHg (30-50)
[2024-02-10] MEDS: DECADRON 4 MG IV ×3 (05:26→20:44)
[2024-02-10] MEDS: VANCOCIN HCL 500 MG 100 IV ×2 (05:26→17:15)
[2024-02-10 05:30] LABS: % Basophils 0.1 % (0-2); % Eosinophils 0.1 % (0-6); % Immature Granulocytes 0.4 % (0-0.5); % Lymphocytes 7.1 % (20.5-51.1); % Monocytes 0.6 % (1.7-9.3); % Neutrophils 91.7 % (42.2-75.2); Absolute Lymphocytes 0.7 10^3/uL (1.2-3.4); Absolute Monocytes 0.1 10^3/uL (0.1-0.6); Absolute Neutrophils 9.2 10^3/uL (1.4-6.5); Hematocrit 35.6 % (37.0-47.0); Hemoglobin 10.9 g/dL (12.0-16.0); Mean Corp Hgb Conc. 30.6 g/dL (33.0-37.0); Mean Corpuscular Hgb 26.4 pg (27.0-31.0); Mean Corpuscular Volume 86.2 fL (81.0-99.0); Mean Platelet Volume 9.1 fL (7.4-10.4); Nucleated Red Blood Cells % 0 %; Platelet Count 210 10^3/uL (130-400); Red Blood Cell Count 4.13 10^6/uL (4.20-5.40); Red Cell Dist. Width 25.6 % (11.5-14.5)
[2024-02-10 05:35] LABS: Venous Blood Gas O2 Therapy 5L/min
[2024-02-10 05:56] LABS: ALT (SGPT) 29 U/L (0-35); AST (SGOT) 28 U/L (14-36); Albumin 2.6 g/dl (3.5-5.0); Alkaline Phosphatase 89 U/L (38-126); Blood Urea Nitrogen 12 mg/dl (7-17); Calcium 8.8 mg/dl (8.4-10.2); Carbon Dioxide 33 mmol/L (22-30); Chloride 95 mmol/L (98-107); Estimated Creatinine Clearance 67 ml/min; Glucose 100 mg/dl (70-99); Potassium 4.1 mmol/L (3.5-5.1); Sodium 132 mmol/L (135-145); Total Bilirubin 0.5 mg/dl (0.2-1.3); Total Protein 5.3 g/dl (6.3-8.2); eGFR > 60.00
[2024-02-10 06:00] VITALS: BMI 20.3
[2024-02-10 06:01] LABS: NT-proBNP 193 pg/ml
[2024-02-10 07:00] VITALS: BP 125/74
[2024-02-10] MEDS: ATROVENT NEBULES 0.5 MG INH ×3 (07:25→19:40)
[2024-02-10] MEDS: XOPENEX 1.25 MG INHALANT SOLUTION INH ×3 (07:25→19:40)
[2024-02-10] MEDS: PULMICORT 0.5 MG INH ×2 (07:25→19:40)
[2024-02-10] MEDS: MUCINEX 600 MG PO (07:53)
[2024-02-10] MEDS: TOPROL XL 50 MG PO ×2 (07:53→20:43)
[2024-02-10] MEDS: ELIQUIS 5 MG PO ×2 (07:53→20:46)
[2024-02-10] MEDS: VITAMIN C 500 MG PO (07:53)
[2024-02-10] MEDS: PROTONIX 40 MG PO (07:53)
[2024-02-10] MEDS: ATIVAN 1 MG PO ×2 (07:54→20:44)
[2024-02-10] MEDS: SODIUM CHLORIDE 1 GRAM PO ×2 (07:56→20:46)
[2024-02-10] MEDS: ZESTRIL 2.5 MG PO (07:56)
[2024-02-10] MEDS: LUVOX 50 MG PO (07:56)
[2024-02-10] MEDS: RESTASIS 0.05% OPHTHALMIC EMULSION 1 DROPS OPHTH ×2 (07:56→20:46)
--- NOTE | 2024-02-10 09:08 | PHA.VAN.FU ---
Vancomycin Assessment / Plan
- Assessment
Renal Function: Stable
WBC's are: Trending Down
In the past 24 hrs, patient has been: Afebrile
Concomitant Antimicrobials: Cefepime
- Dosing Plan
Continue: Vanc 500mg IV q12H
- Monitoring Plan
Peak Level: 02/09 at 2030
Trough Level: 02/10 at 0530
- Follow Up
Pharmacy will continue to follow.
Vancomycin Follow UP
- -
Patient Age: 74
Patient Sex: Female
Vancomycin Day #: 2
Indication: Pulmonary/Respiratory
Requesting Provider: Dr. Lugo
Pertinent Antimicrobial Allergies:
no pertinent antibiotic allergies
Height / Weight:
Height 5 ft 2 in
Actual Weight 50.377 kg
Pertinent Past Medical History: NSCLC
- Vital Signs / Lab Results
Temp Pulse Resp BP Pulse Ox
98.2 F 79 20 125/74 99
02/10/24 07:00 02/10/24 07:28 02/10/24 07:28 02/10/24 07:00 02/10/24 07:28
Lab Results - Hematology
02/09/24 02/10/24
08:52 05:16
WBC 11.0 H 10.0
Lab Results - Chemistry
02/09/24 02/09/24 02/10/24
08:52 23:32 05:16
BUN 9 10 12
Creatinine 0.4 L 0.3 L 0.4 L
Estimated Creat Clear 64 67 67
Albumin 3.0 L 2.6 L
02/09/24 02/09/24
08:52 12:45
Lactic Acid 1.6 Cancelled
Microbiology Results
02/09/24 08:52 Blood Culture - Preliminary
Blood/Venous No Growth in 24 hours- Final report to follow
02/09/24 08:52 Blood Culture - Preliminary
Blood/Venous No Growth in 24 hours- Final report to follow
[2024-02-10] MEDS: ROXICODONE 10 MG PO ×2 (09:48→17:21)
--- NOTE | 2024-02-10 10:59 | CM ---
Case Management Consult Completed
Request for Advance Directive
Met with patient to provide Advance Directive Packet; she refused it.
Gave the packet to her nurse to place on her chart in the event patient changes her mind
[2024-02-10 11:17] VITALS: BP 118/76
--- NOTE | 2024-02-10 11:17 | W.PN.PUL3 ---
Today's Communication / Plan
-
Resume LABA/ICS with Symbicort
Continue xopenex and atrovent
Recheck CXR in AM
Maintain SpO2 >88% with O2
Pulmonary service will continue to follow along
Assessment
-
Assessment: 74-year-old former tobacco smoker with PMhx of moderate COPD, TCP, NSCLC s/p RLL lobectomy with recurrence, Crohn's disease, anxiety, HLD, HTN and seizure disorder who p/w worsening SOB. SHe also endorses worsening cough about 1-2 days
prior to coming in to ER. She believes her cough is now worse than her baseline cough. She was recently hospitalized from 11/21 - 11/27/2023 for MF-PNA with acute COPD exacerbation, DC'd on prednisone taper and Abx. She also was last hospitalized
here from 01/26 - 01/31/2024 with R-sided PE, and suspected R-sided pneumonitis vs MF-PNA, however the former was suspected. She was DC'd home on prednisone + Eliquis. She's now here with worsening SOB, cough, was afebrile in ER, , HR 102, RR 24
and SpO2 97% on 6L/min. Procal 0.07, urine and blood Cx collected, and CXR showed b/l pleural effusions with extensive R-sided pneumonitis/pneumonia. She says she was on prednisone BLOCK STACKER by her Oncologist, Dr. Camacho. She is currently on 5L/min,
and she uses this at home. DEnies CP, JIMÉNEZ, abd pain, f/c.
Chronic conditions prior to arrival:
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
Hypertension
Seizure disorder
COPD
Anxiety/Depressive disorder
Osteoarthritis
Ruptured gallbladder and poss stones in bile duct s/p Cholecystectomy 1975
Pneumonia(2016)
Hyponatremia
Adenocarcinoma RLL, RUL/NSCLC, known to [facility] s/p Right lower lobectomy (08/22/2022)
Recurrent malignant pleural effusions s/p pleurx R
Hay Fever
Appendectomy(1970)
Delayed closure of abdominal wounds (1970)
Partial Small Bowel Resection(2014)
Facelift 2 surgeries back to back (03/25/19)
Bilat eye lift - Sep 2020
Cataract-lens implants January 2021
Impression:
#Acute respiratory failure with hypoxia - suspect this is multifactorial from COPD exacerbation in setting of volume overload and recent pneumonitis; difficult to rule out if she has a recurrent PNA
#NSCLC s/p R-pleurx - drains weekly on , gets out about 50cc per session
#Recent Dx acute R-sided submassive PE now on Eliqu
#Hyponatremia
#Metabolic alkalosis
Plan:
- On 02/08 I gave her 20mg IV lasix and she says she did urinate afterwards - difficult to tell if this helped. Re-check CXR tomorrow AM to re-assess lung parenchyma
- Pain control
- Continue broad spectrum ABx
- Systemic steroids and wean as tolerated - currently on decadron 4mg IV q8hr; follow up infectious up; resume her PCP ppx w/ Bactrim DS TIW
- Maintain SpO2 >88-94% with supplemental O2 as needed
- Incentive spirometer encouraged
- check blood gas given her serum HCO3 is elevated --> shows chronic hypercapnia
- Replete electrolytes with K>4, Mg>2
- Maintain euglycemia with goal BG >100 and <180
- prn nebulized bronchodilators
- She takes Breo 200mcg + Spiriva as outpatient --> continue atrovent + xopenex TID and resume LABA/ICS with Symbicort 160mcg
- she continues to contemplate her life and she seems like she would consider comfort care if she worsens - we spoke about hospice today given that this is her 7th hospitalization in last 6 months
- DVT ppx
Pulmonary service will continue to follow along.
Total time spent today was 50 minutes for this encounter. Time includes reviewing laboratory test/imaging results, reviewing pertinent medical records, obtaining and reviewing medical history, performing an appropriate exam, ordering medications,
tests and procedures. Time also includes documentation of this encounter, coordinating patient care and communicating with other healthcare professionals. Total time does not include separately billed tests performed on this date of service.
Data:
CXR 02-09-2024: Bilateral pleural effusions and extensive right lung airspace disease/pneumonia, slightly progressed.
Subjective Data
-
Date of Service:
Date of Service: February 10, 2024
Chief Complaint: Pulmonary Follow Up
Subjective:
Patient seen this afternoon. Currently on 5 L/min nasal cannula, still says she is short of breath but is not worse than yesterday. She says she continues to drain her right-sided Pleurx every with about 50 cc per session. She currently
denies chest pain, headache, fevers or chills. She occasionally gets anxious with panic attacks from time to time, but currently feels okay.
Review of Systems
General: Other (Negative unless mentioned above)
Objective Data
Data Reviewed
Vital Signs / I&O / Oxygen:
Vital Signs
Temp Pulse Resp BP Pulse Ox
98.2 F 79 20 125/74 99
02/10/24 07:00 02/10/24 07:28 02/10/24 07:28 02/10/24 07:00 02/10/24 09:40
Intake and Output
02/09/24 02/10/24 02/11/24
06:59 06:59 06:59
Intake Total 530 / 530
Balance 530 / 530
SaO2 99
Nasal Cannula flow liters per 5
minute
Physical Exam
General: Respiratory Distress (negative) and Comfortable
HEENT: Normocephalic and Anicteric
Cardiovascular: S1-S2 and Peripheral Edema (negative)
Respiratory: Wheeze (negative), Crackles (RUL), Rhonchi (negative), Accessory Resp Muscle Use (negative) and Other (Reduced breath sounds bilaterally (R>L))
GI: Soft, Non Distended, Non Tender and Normal Bowel Sounds
Neurology: AO x 3 and Tremors (negative)
Skin: Warm and Dry
Labs/Micro/Reports
Lab Data
02/10/24 05:16
02/10/24 05:16
Microbiology
02/09/24 08:52 Blood/Venous Blood Culture - Preliminary
No Growth in 24 hours- Final report to follow
02/09/24 08:52 Blood/Venous Blood Culture - Preliminary
No Growth in 24 hours- Final report to follow
--- NOTE | 2024-02-10 11:46 | W.PN.HOSP.TC ---
Today's Communication/Plan
-
Monitor vital signs and see plan
Oncology to discuss goals of care, prognosis
I discussed CODE STATUS, she is DNR/DNI
Continue with pain control, steroids, nebs
Continue with antibiotics for now
Replete electrolytes
Assessment / Plan
Assessment / Plan
General: Well Nourished and No Apparent Distress
HEENT: NormoCephalic and Anicteric
Respiratory: Clear and Wheezes
Cardiac: S1/S2 and Regular Rhythm
Breast: Deferred by me
GI: Soft, Non Tender and Non Distended
Rectal: Deferred by Provider
Genito-urinary: No [place]
Musculoskeletal: No Edema
Neuro: Awake, Alert, Oriented and AO x 3
Psych: Calm
Worsening dyspnea and shortness of breath, chronic hypoxic respiratory failure suspect multifactorial secondary to pneumonia/pneumonitis, COPD exacerbation along with non-small cell lung carcinoma
Per patient she is using 5 L nasal cannula at home lately
cw Decadron,nebs
Pulmonary evaluation
procal not significant; likely will dc abx and monitor, continue for now
Multiple admissions with worsening shortness of breath in past few months.
Non-small cell lung carcinoma
Recurrent malignant right pleural effusion
On Avastin. Now follows up with Dr. Ahmadi outpatient
Dr Gray ([facility]) that she also follows
Multiple admissions the past few months with worsening shortness of breath. Would prefer oncology to discuss goals of care with patient and to review options for further therapy.
oncology consulted
COPD exacerbation
Continue Decadron
Xopenex, ipratropium
Recent pulmonary embolism
Continue Eliquis
History of hypertension
Continue lisinopril and Toprol
Sinus tachycardia
already on toprol
Crohn's disease status post subtotal colectomy with ileostomy
Monitor
Hypomagnesemia
Replete
Hypokalemia
Replete
Hyperlipidemia
Seizure disorder
Continue phenobarbital
Anxiety/depression
Chronic hyponatremia
Sodium tabs
DVT prophylaxis
Eliquis
Code status
DNR/DNI, discussed with patient this admission
Spoke with patient 02/09 in length. She wants to discuss her prognosis with oncology and she appears to think she cannot do anymore chemotherapy.
I spent a total of 51 minutes with the patient or on the floor. More than 50% of this time involved counseling and coordination of care.
Anticipated Discharge: > 48 hours
Subjective/Interval History
-
Date of Service: February 10, 2024
does have some sob
Objective Data
-
Labs:
Laboratory Results
02/09/24 02/10/24
23:32 05:16
WBC 10.0
Hgb 10.9 L
Hct 35.6 L
Plt Count 210
Sodium 132 L 132 L
Potassium 3.4 L 4.1
Chloride 94 L 95 L
Carbon Dioxide 32 H 33 H
BUN 10 12
Creatinine 0.3 L 0.4 L
Glucose 132 H 100 H
Calcium 8.6 8.8
Total Bilirubin 0.5
AST 28
ALT 29
Alkaline Phosphatase 89
Vital Signs:
Vital Signs
Temp Pulse Resp BP Pulse Ox
97.8 F 97 18 118/76 98
02/10/24 11:17 02/10/24 11:17 02/10/24 11:17 02/10/24 11:17 02/10/24 11:17
I&O
02/09/24 02/10/24 02/11/24
06:59 06:59 06:59
Intake Total 530 / 530
Balance 530 / 530
[2024-02-10] MEDS: ZOFRAN 8 MG PO (11:51)
[2024-02-10] MEDS: MORPHINE SULFATE 1 MG IV ×2 (13:23→22:38)
[2024-02-10 15:00] VITALS: BP 128/73
--- NOTE | 2024-02-10 15:26 | CON.ONC ---
Impression
Impression
SOB/ hypoxia - multifactorial - pneumonia/ pneumonitis/ COPD/ NSCLC
NSCLC metastatic
crohns
Plan
Plan
1. SOB/ hypoxia - pneumonia/ pneumonitis - COPD - NSCLC
-improved w/ steroids / antibiotics
-cont current therapy/ supportive care as per pulmonary/ primary service
1. NSCLC -stage IV
-the patient's overall status of disease was discussed in detail
-the patient is unsure if she desires to continue systemic treatment for her advanced malignancy
-will discuss overall plan of care w/ Dr. Ahmadi
will continue to follow with you
Patient History
History of Present Illness
74y/o female seen in oncology consultation today regarding h/o stage IV NSCLC.
The patient was diagnosed in 2021 w/ NSCLC, s/p RLL lobectomy at [place], followed by adjuvant chemotherapy. She developed metastatic disease in 2022, and has been on therapy since that time w/ Dr. Ahmadi. Most recently she has been receiving alimta
- last 02/05.
She has had issues w/ recurrent right sided pneumonia/ pneumonitis in the setting of underlying COPD, and is now admitted w/ progressive SOB in this context. She has been started on higher dose steroids and antibiotics.
Clinically, she notes some improvement in chronic SOB w/ ongoing interventions. No fevers or chills. Denies pain. No abdominal pain.
Past-Medical/Surgical History
PMH:
stage IV NSCLC - adenocarcinoma - Dr. Ahmadi - tx w/ Alimta - last 02/05
COPD
crohns
HTN
seizure
PSH:
RLL lobectomy
pleurx
bowel resection
jr
SH:
Tobacco: Former Smoker
Alcohol: None
FH: Reviewed & Not Pertinent
Allergies:
acetominophen
Krazati
hydrocodone
Patient Medication
�Medication �Instructions �Recorded �Confirmed �Last Taken �Type
phenobarbital 64.8 mg tablet 64.8 mg PO QPM Neurological 03/12/19 02/09/24 02/08/24 History
Condition
tiotropium bromide 18 mcg capsule 1 cap inhalation R DAILY 09/26/22 02/09/24 02/09/24 History
with inhalation device (Spiriva Lung/Breathing Issues
with HandiHaler)
sodium chloride 1,000 mg soluble 1,000 mg PO BID Supplement #60 tabs 09/20/23 02/09/24 02/09/24 Rx
tablet
ascorbic acid (vitamin C) 500 mg 500 mg PO DAILY Supplement 11/09/23 02/09/24 02/09/24 History
tablet (Vitamin C)
loratadine 10 mg tablet (Claritin) 10 mg PO DAILY Allergies 11/09/23 02/09/24 02/09/24 History
fluticasone furoate 200 1 inh inhalation R DAILY 11/22/23 02/09/24 02/09/24 History
mcg-vilanterol 25 mcg/dose Lung/Breathing Issues
inhalation powder (Breo Ellipta)
lorazepam 1 mg tablet (Ativan) 1 mg PO BID Mental Health/Anxiety 12/27/23 02/09/24 02/09/24 History
calcitonin (salmon) 200 1 spray intranasal (ALT) DAILY 01/21/24 02/09/24 02/01/24 History
unit/actuation nasal spray RENAL
cholecalciferol (vitamin D3) 1,250 1,250 mcg PO TU@0800 Supplement 01/21/24 02/09/24 01/29/24 History
mcg (50,000 unit) capsule
cyanocobalamin (vitamin B-12) 1,000 mcg IM QMONTH Supplement 01/21/24 02/09/24 01/08/24 History
1,000 mcg/mL injection solution
cyclosporine 0.05 % eye drops in a 1 drp BOTH EYES Q12H Eye Condition 01/21/24 02/09/24 02/09/24 History
dropperette (Restasis)
diphenoxylate-atropine 2.5 1 - 2 tab PO QIDPRN PRN diarrhea 01/21/24 02/09/24 01/27/24 History
mg-0.025 mg tablet 1 tablet
folic acid 1 mg tablet 1 mg PO DAILY Supplement 01/21/24 02/09/24 02/09/24 History
lisinopril 2.5 mg tablet 2.5 mg PO DAILY Blood Pressure 01/21/24 02/09/24 02/09/24 History
rosuvastatin 5 mg tablet 5 mg PO QPM High Cholesterol 01/21/24 02/09/24 01/31/24 History
guaifenesin 600 mg tablet, 600 mg PO DAILY Congestion ##0 01/27/24 02/09/24 02/09/24 History
extended release 12 hr (Mucinex)
apixaban 5 mg tablet (Eliquis) 5 mg PO BID #60 tabs 01/31/24 02/09/24 02/09/24 Rx
metoprolol succinate 50 mg 50 mg PO BID HTN #60 tabs 01/31/24 02/09/24 02/09/24 Rx
tablet,extended release 24 hr
ondansetron HCl 4 mg tablet 8 mg (2 x 4 mg) PO Q6HPRN PRN 01/31/24 02/09/24 02/01/24 Rx
Nausea/Vomiting #60 tabs
pantoprazole 40 mg tablet,delayed 40 mg PO DAILY GERD #30 tabs 01/31/24 02/09/24 02/09/24 Rx
release
prednisone 20 mg tablet 40 mg (2 x 20 mg) PO DAILY 01/31/24 02/09/24 02/09/24 Rx
Pneumonitis 30 days #60 tabs
fluvoxamine 50 mg tablet 50 mg PO DAILY 02/09/24 02/09/24 02/09/24 History
levalbuterol tartrate 45 2 inh inhalation R Q6HPRN PRN sob 02/09/24 02/09/24 Unknown History
mcg/actuation aerosol inhaler
(Xopenex HFA)
oxycodone 5 mg tablet 5 mg PO Q4HPRN PRN sevre pain 02/09/24 02/09/24 Unknown History
sulfamethoxazole 800 1 tab PO MOWEFR@0800 02/09/24 02/09/24 02/08/24 History
mg-trimethoprim 160 mg tablet
(Bactrim DS)
Active Medications
Generic Name Dose Route Start Last Admin
Trade Name Freq PRN Reason Stop Dose Admin
Apixaban 5 mg 02/09/24 20:00 02/10/24 07:53
Apixaban (Eliquis) 5 Mg Tablet PO 03/08/24 19:59 5 mg
BID KRISTEN Administration
Ascorbic Acid 500 mg 02/10/24 08:00 02/10/24 07:53
Ascorbic Acid 500 Mg Tablet PO 03/09/24 07:59 500 mg
DAILY KRISTEN Administration
Benzonatate 200 mg 02/09/24 13:25
Benzonatate 100 Mg Capsule PO 03/08/24 13:24
TIDPRN PRN
Cough
Bisacodyl 10 mg 02/09/24 13:25
Bisacodyl 10 Mg Rectal Suppository RECTAL 03/08/24 13:24
[id number] PRN
constipation
Budesonide 0.5 mg 02/09/24 20:00 02/10/24 07:25
Budesonide (Pulmicort Respules) 0.5 Mg/2 Ml INH 0.5 mg
R BID KRISTEN Administration
Protocol
Cefepime HCl 2,000 mg 02/09/24 18:00 02/10/24 07:58
Cefepime Hcl 2,000 Mg/12.5 Ml Vial IV 2,000 mg
Q8H KRISTEN Administration
Cyclosporine 1 drops 02/09/24 20:00 02/10/24 07:56
Cyclosporine 0.05% (Ophthalmic Emulsion) 10 Drop Droperette OPHTH 03/08/24 19:59 1 drops
Q12 KRISTEN Administration
Dexamethasone Sodium Phosphate 4 mg 05/25/24 12:00 02/10/24 11:52
Dexamethasone 4 Mg/Ml 1 Ml Vial IV 03/08/24 11:59 4 mg
Q8H KRISTEN Administration
Fluvoxamine Maleate 50 mg 02/10/24 08:00 02/10/24 07:56
Fluvoxamine 50 Mg Tablet PO 03/09/24 07:59 50 mg
DAILY KRISTEN Administration
Guaifenesin 600 mg 02/10/24 08:00 02/10/24 07:53
Guaifenesin 600 Mg Extended Release Tablet PO 03/09/24 07:59 600 mg
DAILY KRISTEN Administration
Vancomycin HCl 100 mls @ 100 mls/hr 02/09/24 18:00 02/10/24 05:26
Vancocin Hcl 500 Mg IV 100 mls
Q12H KRISTEN Administration
Protocol
Ipratropium [place] 0.5 mg 02/09/24 14:00 02/10/24 13:19
Ipratropium Nebs 0.5 Mg/2.5 Ml Ampul INH 0.5 mg
R TID KRISTEN Administration
Protocol
Ipratropium [place] 0.5 mg 02/09/24 11:19
Ipratropium Nebs 0.5 Mg/2.5 Ml Ampul INH
R Q6HPRN PRN
sob or wheezing
Protocol
Levalbuterol HCl 1.25 mg 02/09/24 11:19
Levalbuterol 1.25 Mg/3 Ml Ampul INH
R Q6HPRN PRN
sob or wheezing
Protocol
Levalbuterol HCl 1.25 mg 02/09/24 14:00 02/10/24 13:20
Levalbuterol 1.25 Mg/3 Ml Ampul INH 1.25 mg
R TID KRISTEN Administration
Protocol
Lisinopril 2.5 mg 02/10/24 08:00 02/10/24 07:56
Lisinopril 2.5 Mg Tablet PO 03/09/24 07:59 2.5 mg
DAILY KRISTEN Administration
Lorazepam 1 mg 02/09/24 20:00 02/10/24 07:54
Lorazepam 1 Mg Tablet PO 03/08/24 19:59 1 mg
BID KRISTEN Administration
Metoprolol Succinate 50 mg 02/09/24 20:00 02/10/24 07:53
Metoprolol 50 Mg Extended Release Tablet PO 03/08/24 19:59 50 mg
BID KRISTEN Administration
Ondansetron HCl 8 mg 02/09/24 13:25 02/10/24 11:51
Ondansetron 4 Mg Tablet PO 03/08/24 13:24 8 mg
Q6HPRN PRN Administration
Nausea/Vomiting
Oxycodone HCl 10 mg 02/09/24 14:33 02/10/24 09:48
Oxycodone 10 Mg Regular Release Tablet PO 02/23/24 14:32 10 mg
Q4HPRN PRN Administration
severe pain
Oxycodone HCl 5 mg 02/09/24 13:25 02/10/24 02:40
Oxycodone 5 Mg Regular Release Tablet PO 02/23/24 13:24 5 mg
Q4HPRN PRN Administration
mild pain
Pantoprazole Sodium 40 mg 02/10/24 08:00 02/10/24 07:53
Pantoprazole 40 Mg Delayed Release Tablet PO 03/09/24 07:59 40 mg
DAILY KRISTEN Administration
Phenobarbital Sodium 64.8 mg 02/09/24 18:00 02/09/24 17:16
Phenobarbital 32.4 Mg Tablet PO 03/08/24 17:59 64.8 mg
QPM KRISTEN Administration
Polyethylene Glycol 17 grams 02/09/24 13:25
Polyethylene Glycol Powder 17 Grams Packet PO 03/08/24 13:24
DAILYPRN PRN
constipation
Rosuvastatin Calcium 5 mg 02/09/24 18:00 02/09/24 17:16
Rosuvastatin (Crestor) 5 Mg Tablet PO 03/08/24 17:59 5 mg
QPM KRISTEN Administration
Senna/Docusate Sodium 1 tablet 02/09/24 13:25
Docusate W/Senna (Marjorie-Colace) Tablet PO 03/08/24 13:24
BIDPRN PRN
constipation
Sodium Chloride 0 flush 02/09/24 13:00
Sodium Chloride 0.9% (Flush) Syringe IV 03/08/24 12:59
PER PROTOCOL KRISTEN
Sodium Chloride 1 gram 02/09/24 20:00 02/10/24 07:56
Sodium Chloride 1 Gram Tablet PO 03/08/24 19:59 1 gram
BID KRISTEN Administration
Sterile Water 10 ml 02/09/24 18:00 02/10/24 07:58
Sterile Water For Injection 10 Ml Vial IV 03/08/24 17:59 10 ml
Q8H KRISTEN Administration
Review of Systems
-
A ROS was performed w/ pertinent findings as per HPI.
Physical Exam
-
General: Other (Appears chronically ill, NAD)
HEENT: Negative Jaundice
Cardiology: Normal Sinus Rhythm
Pulmonary: Other (decreased right side)
Neurology: Non Focal
Labs
Lab Results
WBC 10.0 10^3/uL (4.8-10.8) 02/10/24 05:16
RBC 4.13 10^6/uL (4.20-5.40) L 02/10/24 05:16
Hgb 10.9 g/dL (12.0-16.0) L 02/10/24 05:16
Hct 35.6 % (37.0-47.0) L 02/10/24 05:16
MCV 86.2 fL (81.0-99.0) 02/10/24 05:16
MCH 26.4 pg (27.0-31.0) L 02/10/24 05:16
MCHC 30.6 g/dL (33.0-37.0) L 02/10/24 05:16
RDW 25.6 % (11.5-14.5) H 02/10/24 05:16
Plt Count 210 10^3/uL (130-400) 02/10/24 05:16
MPV 9.1 fL (7.4-10.4) 02/10/24 05:16
Abs Immat Gran (auto) 0.0 10^3/uL (0-0.05) 02/10/24 05:16
Absolute Neuts (auto) 9.2 10^3/uL (1.4-6.5) H 02/10/24 05:16
Absolute Lymphs (auto) 0.7 10^3/uL (1.2-3.4) L 02/10/24 05:16
Absolute Monos (auto) 0.1 10^3/uL (0.1-0.6) 02/10/24 05:16
Absolute Eos (auto) 0.0 10^3/uL (0-0.7) 02/10/24 05:16
Absolute Basos (auto) 0.0 10^3/uL (0-0.2) 02/10/24 05:16
Immature Gran % 0.4 % (0-0.5) 02/10/24 05:16
Neutrophils % 91.7 % (42.2-75.2) H 02/10/24 05:16
Lymphocytes % 7.1 % (20.5-51.1) L 02/10/24 05:16
Monocytes % 0.6 % (1.7-9.3) L 02/10/24 05:16
Eosinophils % 0.1 % (0-6) 02/10/24 05:16
Basophils % 0.1 % (0-2) 02/10/24 05:16
Creatinine 0.4 mg/dL (0.6-1.0) L 02/10/24 05:16
Vital Signs
Vital Signs
Temp Pulse Resp BP Pulse Ox
97.8 F 94 18 128/73 95
02/10/24 15:00 02/10/24 15:00 02/10/24 15:00 02/10/24 15:00 02/10/24 15:00
[2024-02-10 16:15] VITALS: BMI 20.3
[2024-02-10] MEDS: CRESTOR 5 MG PO (17:15)
[2024-02-10] MEDS: LUMINAL 64.7999999999999972 MG PO (17:15)
[2024-02-10 19:00] VITALS: BP 132/88
[2024-02-10] MEDS: FLUSH (NSS) 2 FLUSH IV (20:45)
[2024-02-10 21:01] LABS: Vancomycin Peak 14.3 ug/ml (18-26)
[2024-02-10 23:00] VITALS: BP 139/82
[2024-02-11] MEDS: STERILE WATER FOR INJECTION 10 ML IV ×2 (02:48→09:29)
[2024-02-11] MEDS: FLUSH (NSS) 2 FLUSH IV ×2 (02:49→06:40)
[2024-02-11] MEDS: MAXIPIME 2000 MG IV ×2 (02:49→09:29)
[2024-02-11] MEDS: DECADRON 4 MG IV ×3 (03:09→19:53)
[2024-02-11] MEDS: FLUSH (NSS) 1 FLUSH IV (03:10)
[2024-02-11] MEDS: ROXICODONE 5 MG PO (03:30)
[2024-02-11 03:45] VITALS: BP 136/87
--- NOTE | 2024-02-11 05:59 | PTCARENOTE ---
@0303;Pt woke and stated,'My pain is 10 and I want my morphine.Didn't the doctor order a standing order of Dilaudid?.' Pt is forgetful at times concerning her medications.Instructed NGUYEN Patricia on above note and pt is early for next dose of morphine
1mg IV q6hr. NGUYEN Patricia instructed this RN to give pt her Roxicodone 10mg po now and was administered at 0330.
[2024-02-11 06:00] VITALS: BMI 20.5
[2024-02-11] MEDS: VANCOCIN HCL 500 MG 100 IV (06:40)
[2024-02-11 06:50] VITALS: BP 119/71
[2024-02-11 06:54] LABS: % Basophils 0.1 % (0-2); % Eosinophils 0.1 % (0-6); % Immature Granulocytes 0.5 % (0-0.5); % Monocytes 0.5 % (1.7-9.3); % Neutrophils 94.8 % (42.2-75.2); Absolute Immature Granulocytes 0.1 10^3/uL (0-0.05); Absolute Lymphocytes 0.6 10^3/uL (1.2-3.4); Absolute Monocytes 0.1 10^3/uL (0.1-0.6); Absolute Neutrophils 14.1 10^3/uL (1.4-6.5); Hematocrit 36.9 % (37.0-47.0); Hemoglobin 11.4 g/dL (12.0-16.0); Mean Corp Hgb Conc. 30.9 g/dL (33.0-37.0); Mean Corpuscular Hgb 26.6 pg (27.0-31.0); Mean Platelet Volume 9.4 fL (7.4-10.4); Nucleated Red Blood Cells % 0 %; Platelet Count 223 10^3/uL (130-400); Red Blood Cell Count 4.29 10^6/uL (4.20-5.40); Red Cell Dist. Width 25.2 % (11.5-14.5); White Blood Cell Count 14.9 10^3/uL (4.8-10.8)
[2024-02-11 07:16] LABS: ALT (SGPT) 35 U/L (0-35); AST (SGOT) 31 U/L (14-36); Albumin 2.9 g/dl (3.5-5.0); Alkaline Phosphatase 107 U/L (38-126); Blood Urea Nitrogen 17 mg/dl (7-17); Calcium 8.8 mg/dl (8.4-10.2); Carbon Dioxide 31 mmol/L (22-30); Chloride 95 mmol/L (98-107); Estimated Creatinine Clearance 67 ml/min; Glucose 113 mg/dl (70-99); Magnesium 1.3 mg/dl (1.6-2.3); Potassium 4.6 mmol/L (3.5-5.1); Sodium 130 mmol/L (135-145); Total Bilirubin 0.4 mg/dl (0.2-1.3); Total Protein 5.8 g/dl (6.3-8.2); eGFR > 60.00
[2024-02-11 07:20] LABS: Vancomycin Trough 5.6 ug/ml (5-20)
[2024-02-11] MEDS: PULMICORT 0.5 MG INH ×2 (07:51→19:26)
[2024-02-11] MEDS: ATROVENT NEBULES 0.5 MG INH ×3 (07:51→19:26)
[2024-02-11] MEDS: XOPENEX 1.25 MG INHALANT SOLUTION INH ×3 (07:51→19:27)
[2024-02-11] MEDS: LUVOX 50 MG PO (08:06)
[2024-02-11] MEDS: SODIUM CHLORIDE 1 GRAM PO ×2 (08:06→19:55)
[2024-02-11] MEDS: MUCINEX 600 MG PO (08:06)
[2024-02-11] MEDS: ELIQUIS 5 MG PO ×2 (08:06→19:52)
[2024-02-11] MEDS: RESTASIS 0.05% OPHTHALMIC EMULSION 1 DROPS OPHTH ×2 (08:06→19:55)
[2024-02-11] MEDS: PROTONIX 40 MG PO (08:06)
[2024-02-11] MEDS: VITAMIN C 500 MG PO (08:06)
[2024-02-11] MEDS: ATIVAN 1 MG PO ×2 (08:07→19:52)
[2024-02-11] MEDS: ZESTRIL 2.5 MG PO (08:09)
[2024-02-11] MEDS: TOPROL XL 50 MG PO ×2 (08:09→19:53)
[2024-02-11] MEDS: ROXICODONE 10 MG PO ×2 (08:17→16:28)
[2024-02-11] MEDS: MAGNESIUM SULFATE 50 IV (08:20)
--- NOTE | 2024-02-11 08:52 | PHA.VAN.FU ---
Vancomycin Assessment / Plan
- Assessment
Renal Function: Stable
WBC's are: Trending Up
In the past 24 hrs, patient has been: Afebrile
Concomitant Antimicrobials: cefepime
- Assessment - Therapeutic Drug Monitoring
Extrapolated Cmax (mcg/mL): 17.9
Peak level was drawn: Appropriately (drawn ~2.3H after end of previous infusion)
Extrapolated Cmin (mcg/mL): 6.3
Trough Drawn: Appropriately
Levels were drawn: At steady state (levels drawn after 3rd maintenance dose)
Calculated AUC (mcg*h/mL): 267
Calculated ke: 0.0955
Calculated half life (H): 7.3
Calculated Vd (L): 39 (~0.76 L/kg)
Calculated Vanc CL (ml/min): 62
- Dosing Plan
Adjust Regimen to: Vanc 750mg Q12H starting at 1800
New Regimen Predicts: AUC (421), Peak (28.1), Trough (10)
- Monitoring Plan
No level(s) ordered at this time: consider levels in next few days
- Follow Up
Pharmacy will continue to follow.
Vancomycin Follow UP
- -
Patient Age: 74
Patient Sex: Female
Vancomycin Day #: 3
Indication: Pulmonary/Respiratory
Requesting Provider: Dr. Lugo
Pertinent Antimicrobial Allergies:
no pertinent antibiotic allergies
Height / Weight:
Height 5 ft 2 in
Actual Weight 50.859 kg
Pertinent Past Medical History: NSCLC
- Vital Signs / Lab Results
Temp Pulse Resp BP Pulse Ox
97.8 F 79 16 140/79 100
02/11/24 06:50 02/11/24 08:09 02/11/24 07:57 02/11/24 08:09 02/11/24 07:57
Lab Results - Hematology
05/25/24 05/26/24 05/27/24
08:52 05:16 06:24
WBC 11.0 H 10.0 14.9 H
Lab Results - Chemistry
02/09/24 02/09/24 02/10/24
08:52 23:32 05:16
BUN 9 10 12
Creatinine 0.4 L 0.3 L 0.4 L
Estimated Creat Clear 64 67 67
Albumin 3.0 L 2.6 L
02/11/24
06:24
BUN 17
Creatinine 0.3 L
Estimated Creat Clear 67
Albumin 2.9 L
02/09/24 02/09/24
08:52 12:45
Lactic Acid 1.6 Cancelled
Microbiology Results
02/09/24 16:42 Nasal Screen MRSA (PCR) - Final
Nose MRSA not detected - performed by PCR methodology.
02/09/24 08:52 Blood Culture - Preliminary
Blood/Venous No Growth in 24 hours- Final report to follow
02/09/24 08:52 Blood Culture - Preliminary
Blood/Venous No Growth in 24 hours- Final report to follow
Therapeutic Drug Monitoring
Vancomycin Peak 14.3 ug/ml (18-26) L 02/10/24 20:35
Vancomycin Trough 5.6 ug/ml (5-20) 02/11/24 06:24
[2024-02-11] MEDS: MORPHINE SULFATE 1 MG IV ×3 (09:42→20:08)
--- NOTE | 2024-02-11 10:55 | W.PN.HOSP.TC ---
Today's Communication/Plan
-
monitor vitals
see plan
Wean oxygen as tolerated
repeat CXR today
morphine
cw decadron and nebs
on abx
Assessment / Plan
Assessment / Plan
General: Well Nourished and No Apparent Distress
HEENT: NormoCephalic and Anicteric
Respiratory: Clear and Wheezes
Cardiac: S1/S2 and Regular Rhythm
Breast: Deferred by me
GI: Soft, Non Tender and Non Distended
Rectal: Deferred by Provider
Genito-urinary: No Hollingsworth
Musculoskeletal: No Edema
Neuro: Awake, Alert, Oriented and AO x 3
Psych: Calm
Worsening dyspnea and shortness of breath, chronic hypoxic respiratory failure suspect multifactorial secondary to pneumonia/pneumonitis, COPD exacerbation along with non-small cell lung carcinoma
Per patient she is using 5 L nasal cannula at home lately
cw Decadron,nebs
Pulmonary evaluation
procal not significant; likely dc abx in next 24hrs if cx remains neg , continue for now
Multiple admissions with worsening shortness of breath in past few months.Patient likely leaning towards no further chemo. She will be speaking with oncology regarding further treatments.
CXR 02/10 pending
morphine appears to help with her breathing and pain, will continue for now
Non-small cell lung carcinoma
Recurrent malignant right pleural effusion
On Avastin. Now follows up with Dr. Ahmadi outpatient
Dr Gray ([facility]) that she also follows
Multiple admissions the past few months with worsening shortness of breath. Would prefer oncology to discuss goals of care with patient and to review options for further therapy.
oncology following
COPD exacerbation
Continue Decadron
Xopenex, ipratropium
Recent pulmonary embolism
Continue Eliquis
History of hypertension
Continue lisinopril and Toprol
Sinus tachycardia
already on toprol
Crohn's disease status post subtotal colectomy with ileostomy
Monitor
Hypomagnesemia
Replete
Hypokalemia
Replete
Hyperlipidemia
Seizure disorder
Continue phenobarbital
Anxiety/depression
Chronic hyponatremia
Sodium tabs and fluid restriction
DVT prophylaxis
Eliquis
Code status
DNR/DNI, discussed with patient this admission
Spoke with patient 02/09 in length. She wants to discuss her prognosis with oncology and she appears to think she cannot do anymore chemotherapy.
I spent a total of 52 minutes with the patient or on the floor. More than 50% of this time involved counseling and coordination of care.
Anticipated Discharge: > 48 hours
Subjective/Interval History
-
Date of Service: February 11, 2024
denies chest pain
Objective Data
-
Labs:
Laboratory Results
02/11/24
06:24
WBC 14.9 H
Hgb 11.4 L
Hct 36.9 L
Plt Count 223
Sodium 130 L
Potassium 4.6
Chloride 95 L
Carbon Dioxide 31 H
BUN 17
Creatinine 0.3 L
Glucose 113 H
Calcium 8.8
Total Bilirubin 0.4
AST 31
ALT 35
Alkaline Phosphatase 107
Vital Signs:
Vital Signs
Temp Pulse Resp BP Pulse Ox
97.8 F 79 16 140/79 100
02/11/24 06:50 02/11/24 08:09 02/11/24 07:57 02/11/24 08:09 02/11/24 07:57
I&O
02/10/24 02/11/24 02/12/24
06:59 06:59 06:59
Intake Total 530 / 530 1400 / 1400
Balance 530 / 530 1400 / 1400
--- NOTE | 2024-02-11 10:57 | W.PN.PUL3 ---
Today's Communication / Plan
-
Continue nebulized bronchodilators + budesonide
Resume Symbicort and Spiriva upon discharge
Maintain SpO2 >88% with O2
Trial of Lasix again today --> replete K>4, Mg>2
IR consult to drain right Pleurx
Pulmonary service will continue to follow along
Assessment
-
Assessment: 74-year-old former tobacco smoker with PMhx of moderate COPD, TCP, NSCLC s/p RLL lobectomy with recurrence, Crohn's disease, anxiety, HLD, HTN and seizure disorder who p/w worsening SOB. SHe also endorses worsening cough about 1-2 days
prior to coming in to ER. She believes her cough is now worse than her baseline cough. She was recently hospitalized from 11/21 - 11/27/2023 for MF-PNA with acute COPD exacerbation, DC'd on prednisone taper and Abx. She also was last hospitalized
here from 01/26 - 01/31/2024 with R-sided PE, and suspected R-sided pneumonitis vs MF-PNA, however the former was suspected. She was DC'd home on prednisone + Eliquis. She's now here with worsening SOB, cough, was afebrile in ER, , HR 102, RR 24
and SpO2 97% on 6L/min. Procal 0.07, urine and blood Cx collected, and CXR showed b/l pleural effusions with extensive R-sided pneumonitis/pneumonia. She says she was on prednisone [employer] by her Oncologist, Dr. Camacho. She is currently on 5L/min,
and she uses this at home. DEnies CP, JIMÉNEZ, abd pain, f/c.
Chronic conditions prior to arrival:
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
Hypertension
Seizure disorder
COPD
Anxiety/Depressive disorder
Osteoarthritis
Ruptured gallbladder and poss stones in bile duct s/p Cholecystectomy 1975
Pneumonia(2016)
Hyponatremia
Adenocarcinoma RLL, RUL/NSCLC, known to [place] s/p Right lower lobectomy (08/22/2022)
Recurrent malignant pleural effusions s/p pleurx R
Hay Fever
Appendectomy(1970)
Delayed closure of abdominal wounds (1970)
Partial Small Bowel Resection(2014)
Facelift 2 surgeries back to back (03/25/19)
Bilat eye lift - Sep 2020
Cataract-lens implants January 2021
Impression:
#Acute respiratory failure with hypoxia - suspect this is multifactorial from COPD exacerbation in setting of volume overload and recent pneumonitis; difficult to rule out if she has a recurrent PNA
#NSCLC s/p R-pleurx - drains weekly on , gets out about 50cc per session
#Recent Dx acute R-sided submassive PE now on Eliquis
#Hyponatremia
#Metabolic alkalosis
Plan:
- On 02/08 I gave her 20mg IV lasix and she says she did urinate afterwards - difficult to tell if this helped.
-CXR repeated today shows worsening opacification in the mid right lung, difficult to say if this is worsening effusion versus worsening pneumonia/pneumonitis. Would recommend draining right effusion via her Pleurx to see if this improves her CXR
and symptoms. I will also give another dose of lasix as her feet are now swollen and she has moderate-sized R-effusion and small L-pleural effusion
- Consider repeat CT chest after draining pleurx
- Pain control
- Procal 0.07 on 02/09/2024 - s/p 3 days of cefepime and 3 doses of IV vanco; Abx now DC'd - continue to monitor WBC and fever
- Systemic steroids and wean as tolerated - currently on decadron 4mg IV q8hr; follow up infectious up; resume her PCP ppx w/ Bactrim DS TIW
- Maintain SpO2 >88-94% with supplemental O2 as needed
- Incentive spirometer encouraged
- check blood gas given her serum HCO3 is elevated --> shows chronic hypercapnia
- Replete electrolytes with K>4, Mg>2
- Maintain euglycemia with goal BG >100 and <180
- prn nebulized bronchodilators
- She takes Breo 200mcg + Spiriva as outpatient --> continue atrovent + xopenex TID with budesonide 0.5mg BID; resume inhalers upon discharge
- she continues to contemplate her life and she seems like she would consider comfort care if she worsens - we spoke about hospice today & yesterday given that this is her 7th hospitalization in last 6 months
- DVT ppx
Pulmonary service will continue to follow along.
Total time spent today was 50 minutes for this encounter. Time includes reviewing laboratory test/imaging results, reviewing pertinent medical records, obtaining and reviewing medical history, performing an appropriate exam, ordering medications,
tests and procedures. Time also includes documentation of this encounter, coordinating patient care and communicating with other healthcare professionals. Total time does not include separately billed tests performed on this date of service.
Data:
CXR 02-11-2024: Moderate right pleural effusion with associated extensive right lung airspace disease, similar to prior.
CXR 02-09-2024: Bilateral pleural effusions and extensive right lung airspace disease/pneumonia, slightly progressed.
Subjective Data
-
Date of Service:
Date of Service: February 11, 2024
Chief Complaint: Pulmonary Follow Up
Subjective:
Seen and evaluated today at bedside. CXR performed today -shows worsening opacification in the right hemithorax with suspected moderate right pleural effusion. Patient says that she actually feels better today. She is currently on 5 L/min
saturating 98%. She denies worsening cough, headache, fevers or chills.
Review of Systems
General: Other (Negative unless mentioned above)
Objective Data
Data Reviewed
Vital Signs / I&O / Oxygen:
Vital Signs
Temp Pulse Resp BP Pulse Ox
97.8 F 79 16 140/79 100
02/11/24 06:50 02/11/24 08:09 02/11/24 07:57 02/11/24 08:09 02/11/24 07:57
Intake and Output
02/10/24 02/11/24 02/12/24
06:59 06:59 06:59
Intake Total 530 / 530 1400 / 1400
Balance 530 / 530 1400 / 1400
SaO2 100
Nasal Cannula flow liters per 5
minute
Physical Exam
General: Respiratory Distress (negative) and Comfortable
HEENT: Normocephalic and Anicteric
Cardiovascular: Peripheral Edema (+1 lower extremity edema bilaterally) and Other (Normal rate)
Respiratory: Wheeze (negative), Crackles (R-midlung), Rhonchi (negative), Accessory Resp Muscle Use (negative) and Other (Reduced breath sounds bilaterally (R>L))
GI: Soft, Non Distended, Non Tender and Normal Bowel Sounds
Neurology: AO x 3 and Tremors (negative)
Skin: Warm and Dry
Labs/Micro/Reports
Lab Data
02/11/24 06:24
02/11/24 06:24
Microbiology
02/09/24 08:52 Blood/Venous Blood Culture - Preliminary
No Growth in 48 hours- Final report to follow
02/09/24 08:52 Blood/Venous Blood Culture - Preliminary
No Growth in 48 hours- Final report to follow
02/09/24 16:42 Nose Nasal Screen MRSA (PCR) - Final
MRSA not detected - performed by PCR methodology.
[2024-02-11 11:00] VITALS: BP 139/74
[2024-02-11 14:53] VITALS: BP 128/79
[2024-02-11] MEDS: CRESTOR 5 MG PO (17:21)
[2024-02-11] MEDS: LUMINAL 64.7999999999999972 MG PO (17:23)
[2024-02-11 19:24] VITALS: BP 147/79
[2024-02-11] MEDS: MAGNESIUM OXIDE 500 MG PO (19:52)
[2024-02-11] MEDS: LASIX 40 MG IV (20:14)
--- NOTE | 2024-02-11 22:13 | PTCARENOTE ---
Pt declines to be turned and stated,'I turn myself'.
[2024-02-11 23:15] VITALS: BP 135/90
[2024-02-12] VITALS (7 sets, daily range): BP systolic 113–147; BP diastolic 71–89; BMI 20.2
[2024-02-12] MEDS: MORPHINE SULFATE 1 MG IV ×3 (02:54→22:12)
[2024-02-12] MEDS: FLUSH (NSS) 2 FLUSH IV ×4 (02:56→22:13)
[2024-02-12] MEDS: FLUSH (NSS) 1 FLUSH IV (03:05)
[2024-02-12] MEDS: DECADRON 4 MG IV ×3 (03:05→20:33)
--- NOTE | 2024-02-12 03:52 | PTCARENOTE ---
Pt sleeping.@@[id number] ;monitor alarmed HR 160's and HR right came right down to 104.Appears to be SVT.Pt denies CP/SOB.Vitals stable and charted.@0320 ;tele strip and vital signs TT to NGUYEN Faye .NGUYEN instructed this RN to do morning labs
early.
[2024-02-12 04:21] LABS: % Basophils 0.1 % (0-2); % Immature Granulocytes 0.6 % (0-0.5); % Lymphocytes 6.1 % (20.5-51.1); % Monocytes 2.1 % (1.7-9.3); % Neutrophils 91.1 % (42.2-75.2); Absolute Immature Granulocytes 0.1 10^3/uL (0-0.05); Absolute Lymphocytes 0.7 10^3/uL (1.2-3.4); Absolute Monocytes 0.2 10^3/uL (0.1-0.6); Absolute Neutrophils 9.9 10^3/uL (1.4-6.5); Hematocrit 35.1 % (37.0-47.0); Hemoglobin 11.3 g/dL (12.0-16.0); Mean Corp Hgb Conc. 32.2 g/dL (33.0-37.0); Mean Corpuscular Hgb 26.5 pg (27.0-31.0); Mean Corpuscular Volume 82.2 fL (81.0-99.0); Mean Platelet Volume 8.6 fL (7.4-10.4); Nucleated Red Blood Cells % 0 %; Platelet Count 175 10^3/uL (130-400); Red Blood Cell Count 4.27 10^6/uL (4.20-5.40); Red Cell Dist. Width 25.1 % (11.5-14.5); White Blood Cell Count 10.9 10^3/uL (4.8-10.8)
[2024-02-12 05:15] LABS: ALT (SGPT) 40 U/L (0-35); AST (SGOT) 37 U/L (14-36); Albumin 3.1 g/dl (3.5-5.0); Alkaline Phosphatase 107 U/L (38-126); Blood Urea Nitrogen 17 mg/dl (7-17); Calcium 8.8 mg/dl (8.4-10.2); Carbon Dioxide 38 mmol/L (22-30); Chloride 87 mmol/L (98-107); Estimated Creatinine Clearance 67 ml/min; Glucose 111 mg/dl (70-99); Magnesium 1.3 mg/dl (1.6-2.3); Phosphorus 2.4 mg/dl (2.5-4.5); Potassium 3.9 mmol/L (3.5-5.1); Sodium 130 mmol/L (135-145); Total Bilirubin 0.4 mg/dl (0.2-1.3); Total Protein 5.9 g/dl (6.3-8.2); eGFR > 60.00
[2024-02-12] MEDS: MAGNESIUM SULFATE IV (05:51)
[2024-02-12] MEDS: MAGNESIUM SULFATE 104 GRAMS IV (06:31)
[2024-02-12] MEDS: PULMICORT 0.5 MG INH ×2 (07:25→19:30)
[2024-02-12] MEDS: ATROVENT NEBULES 0.5 MG INH ×3 (07:25→19:30)
[2024-02-12] MEDS: XOPENEX 1.25 MG INHALANT SOLUTION INH ×3 (07:25→19:30)
[2024-02-12] MEDS: ZESTRIL 2.5 MG PO (07:52)
[2024-02-12] MEDS: TOPROL XL 50 MG PO ×2 (07:52→20:32)
[2024-02-12] MEDS: MUCINEX 600 MG PO (07:52)
[2024-02-12] MEDS: ELIQUIS 5 MG PO ×2 (07:52→20:33)
[2024-02-12] MEDS: ATIVAN 1 MG PO ×2 (07:52→20:31)
[2024-02-12] MEDS: SODIUM CHLORIDE 1 GRAM PO ×2 (07:55→21:14)
[2024-02-12] MEDS: PROTONIX 40 MG PO (07:55)
[2024-02-12] MEDS: LUVOX 50 MG PO (07:55)
[2024-02-12] MEDS: VITAMIN C 500 MG PO (07:56)
[2024-02-12] MEDS: RESTASIS 0.05% OPHTHALMIC EMULSION 1 DROPS OPHTH ×2 (07:56→21:14)
[2024-02-12] MEDS: ROXICODONE 5 MG PO ×2 (08:13→16:29)
--- NOTE | 2024-02-12 09:51 | PN.IRAD.UPD ---
Update Note - IRAD
- -
Right Pleurx drained bedside, 25ml dark brown fluid. Patient states catheter is drained once a week by VN, usually draining 50-75 ml. Last drained 02/06. Site cleaned and dressed. RN notified.
[2024-02-12] MEDS: ROXICODONE 10 MG PO ×2 (10:19→18:24)
--- NOTE | 2024-02-12 10:38 | W.PN.PUL.V3 ---
Today's Communication / Plan
-
.
Wean oxygen.
Anticoagulation.
No change in Decadron.
Monitor for pleural fluid reaccumulation.
Diuresis as tolerated.
Comfort a priority
Assessment
-
Assessment: 74-year-old former tobacco smoker with PMhx of moderate COPD, TCP, NSCLC s/p RLL lobectomy with recurrence, Crohn's disease, anxiety, HLD, HTN and seizure disorder who p/w worsening SOB. SHe also endorses worsening cough about 1-2 days
prior to coming in to ER. She believes her cough is now worse than her baseline cough. She was recently hospitalized from 11/21 - 11/27/2023 for MF-PNA with acute COPD exacerbation, DC'd on prednisone taper and Abx. She also was last hospitalized
here from 01/26 - 01/31/2024 with R-sided PE, and suspected R-sided pneumonitis vs MF-PNA, however the former was suspected. She was DC'd home on prednisone + Eliquis. She's now here with worsening SOB, cough, was afebrile in ER, , HR 102, RR 24
and SpO2 97% on 6L/min. Procal 0.07, urine and blood Cx collected, and CXR showed b/l pleural effusions with extensive R-sided pneumonitis/pneumonia. She says she was on prednisone [employer] ARCHITECT by her Oncologist, Dr. Camacho. She is currently on 5L/min,
and she uses this at home. DEnies CP, JIMÉNEZ, abd pain, f/c.
Chronic conditions prior to arrival:
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
Hypertension
Seizure disorder
COPD
Anxiety/Depressive disorder
Osteoarthritis
Ruptured gallbladder and poss stones in bile duct s/p Cholecystectomy 1976
Pneumonia(2016)
Hyponatremia
Adenocarcinoma RLL, RUL/NSCLC, known to [place] s/p Right lower lobectomy (08/22/2022)
Recurrent malignant pleural effusions s/p pleurx R
Hay Fever
Appendectomy(1970)
Delayed closure of abdominal wounds (1970)
Partial Small Bowel Resection(2014)
Facelift 2 surgeries back to back (03/25/19)
Bilat eye lift - Sep 2020
Cataract-lens implants January 2021
Impression:
#Acute respiratory failure with hypoxia - suspect this is multifactorial from COPD exacerbation in setting of volume overload and recent pneumonitis; difficult to rule out if she has a recurrent PNA
#NSCLC s/p R-pleurx - drains weekly on , gets out about 50cc per session
#Recent Dx acute R-sided submassive PE now on Eliquis
#Hyponatremia
#Metabolic alkalosis
Plan:
Respiratory status slowly improving.
Supplemental oxygen as needed.
Incentive spirometry
Breo and Yaneiva as an outpatient or equivalent in the hospital
Assess discharge. Supplemental option needs prior to discharge.
Continue diuresis as tolerated.
Monitor intake/output, lower extremity edema, renal function and weight.
Follow chest x-ray.
Chronic hypercapnia suspected.
Decadron with slow taper.
Resume PCP prophylaxis with Bactrim 3 times weekly.
Eliquis continues for submassive right sided pulmonary embolism
Pleurx catheter drainage as needed.
Monitor blood sugar.
Insulin supplementation as needed.
Cultures reviewed.
Status post 3 days of cefepime and 3 doses of vancomycin.
Observe off antibiotics.
Replace electrolytes.
Patient states she would contemplate comfort care if her situation worsens-pulmonary team has spoken to her about hospice as this is her seventh hospitalization in the last 6 months.
DVT prophylaxis.
Data:
CXR 02-11-2024: Moderate right pleural effusion with associated extensive right lung airspace disease, similar to prior.
CXR 02-09-2024: Bilateral pleural effusions and extensive right lung airspace disease/pneumonia, slightly progressed.
Subjective Data
-
Date of Service:
Date of Service: February 12, 2024
Chief Complaint: Pulmonary Follow Up
Subjective:
Continues to complain some shortness of breath, leg edema, improved, no chest pain, pleurisy, chest congestion. No productive cough
Review of Systems
General: Other ( per HPI)
Objective Data
Data Reviewed
Vital Signs / I&O:
Vital Signs
Temp Pulse Resp BP Pulse Ox
97.8 F 85 16 126/77 100
02/12/24 07:00 02/12/24 07:28 02/12/24 07:28 02/12/24 07:00 02/12/24 07:28
Intake and Output
02/11/24 02/12/24 02/13/24
06:59 06:59 06:59
Intake Total 1400 / 1400 754 / 754
Balance 1400 / 1400 754 / 754
SaO2: 100
Nasal Cannula flow liters per minute: 5
Physical Exam
General: Respiratory Distress (negative) and Comfortable
HEENT: Normocephalic and Anicteric
Cardiovascular: Regular Rhythm, Murmur, Peripheral Edema (+1 lower extremity edema bilaterally) and Other (Normal rate)
Respiratory: Wheeze (negative), Crackles (R-midlung), Rhonchi (negative), Accessory Resp Muscle Use (negative) and Other (Reduced breath sounds bilaterally (R>L))
GI: Soft, Non Distended, Non Tender and Normal Bowel Sounds
Neurology: Awake, Alert and Tremors (negative)
Skin: Warm, Dry, Cyanosis and Jaundice (n)
Labs/Micro/Reports
Lab Data
02/12/24 04:15
02/12/24 04:15
Microbiology
02/09/24 08:52 Blood/Venous Blood Culture - Preliminary
No Growth in 72 hours- Final report to follow
02/09/24 08:52 Blood/Venous Blood Culture - Preliminary
No Growth in 72 hours- Final report to follow
02/09/24 16:42 Nose Nasal Screen MRSA (PCR) - Final
MRSA not detected - performed by PCR methodology.
--- NOTE | 2024-02-12 10:45 | W.PN.HOSP.TC ---
Today's Communication/Plan
-
monitor vitals
see plan
oncology to see today
IR for Pleurx drainage
cw morphine
replete magnesium
Assessment / Plan
Assessment / Plan
General: Well Nourished and No Apparent Distress
HEENT: NormoCephalic and Anicteric
Respiratory: Clear and Wheezes
Cardiac: S1/S2 and Regular Rhythm
Breast: Deferred by me
GI: Soft, Non Tender and Non Distended
Rectal: Deferred by Provider
Genito-urinary: No Hollingsworth
Musculoskeletal: No Edema
Neuro: Awake, Alert, Oriented and AO x 3
Psych: Calm
Worsening dyspnea and shortness of breath, chronic hypoxic respiratory failure suspect multifactorial secondary to pneumonia/pneumonitis, COPD exacerbation along with non-small cell lung carcinoma
Per patient she is using 5 L nasal cannula at home lately
cw Decadron,nebs
Pulmonary evaluation
procal not significant; likely dc abx in next 24hrs if cx remains neg , continue for now
Multiple admissions with worsening shortness of breath in past few months.Patient likely leaning towards no further chemo. She will be speaking with oncology regarding further treatments.
CXR 02/10 with pleural effusion; IR consulted for pleuryx drainage
morphine appears to help with her breathing and pain, will continue for now
Non-small cell lung carcinoma
Recurrent malignant right pleural effusion
On Avastin. Now follows up with Dr. Ahmadi outpatient
Dr Gray ([facility]) that she also follows
Multiple admissions the past few months with worsening shortness of breath. Would prefer oncology to discuss goals of care with patient and to review options for further therapy.
oncology following
periods of tachycardia likely precipitated by hypoxia and hypomagnesemia
Replete magnesium
Already on metoprolol twice daily which we will continue
Monitor
COPD exacerbation
Continue Decadron
Xopenex, ipratropium
Recent pulmonary embolism
Continue Eliquis
History of hypertension
Continue lisinopril and Toprol
Sinus tachycardia
already on toprol
Crohn's disease status post subtotal colectomy with ileostomy
Monitor
Hypomagnesemia
Replete
Hypokalemia
Replete
Hyperlipidemia
Seizure disorder
Continue phenobarbital
Anxiety/depression
Chronic hyponatremia
Sodium tabs and fluid restriction
DVT prophylaxis
Eliquis
Code status
DNR/DNI, discussed with patient this admission
Spoke with patient 02/09 in length. She wants to discuss her prognosis with oncology and she appears to think she cannot do anymore chemotherapy.
I spent a total of 51 minutes with the patient or on the floor. More than 50% of this time involved counseling and coordination of care.
Anticipated Discharge: > 48 hours
Subjective/Interval History
-
Date of Service: February 12, 2024
still feeling the same
Objective Data
-
Labs:
Laboratory Results
02/12/24
04:15
WBC 10.9 H
Hgb 11.3 L
Hct 35.1 L
Plt Count 175 D
Sodium 130 L
Potassium 3.9
Chloride 87 L
Carbon Dioxide 38 H
BUN 17
Creatinine 0.4 L
Glucose 111 H
Calcium 8.8
Total Bilirubin 0.4
AST 37 H
ALT 40 H
Alkaline Phosphatase 107
Vital Signs:
Vital Signs
Temp Pulse Resp BP Pulse Ox
97.8 F 85 16 126/77 100
02/12/24 07:00 02/12/24 07:28 02/12/24 07:28 02/12/24 07:00 02/12/24 10:38
I&O
02/11/24 02/12/24 02/13/24
06:59 06:59 06:59
Intake Total 1400 / 1400 754 / 754
Balance 1400 / 1400 754 / 754
--- NOTE | 2024-02-12 13:32 | W.PN.ONC ---
Today's Communication / Plan
-
Further management of her lung disease as per pulmonary and hospitalist services. The patient has decided she would like to take a holiday from chemo for at least the next 3 weeks, I told her I totally concurred. She will be in touch with her
oncologist thereafter.
Impression
Impression
SOB/ hypoxia - multifactorial - pneumonia/ pneumonitis/ COPD/ NSCLC
NSCLC metastatic
crohns
Plan
Plan
1. SOB/ hypoxia - pneumonia/ pneumonitis - COPD - NSCLC
-improved w/ steroids / antibiotics
-cont current therapy/ supportive care as per pulmonary/ primary service
1. NSCLC -stage IV
-the patient's overall status of disease was discussed in detail
-the patient is unsure if she desires to continue systemic treatment for her advanced malignancy
-will discuss overall plan of care w/ Dr. Ahmadi
will continue to follow with you
Subjective/Objective
Subjective/Objective
She says her breathing is about the same. She continues on 5 L. Physical examination is unchanged.
Vital Signs:
Vital Signs
Temp Pulse Resp BP Pulse Ox
98.2 F 66 16 121/76 97
02/12/24 10:54 02/12/24 10:54 02/12/24 10:54 02/12/24 10:54 02/12/24 10:54
Lab Results:
Laboratory Data
WBC 10.9 10^3/uL (4.8-10.8) H 02/12/24 04:15
Hgb 11.3 g/dL (12.0-16.0) L 02/12/24 04:15
Plt Count 175 10^3/uL (130-400) D 02/12/24 04:15
eGFR > 60.00 02/12/24 04:15
[2024-02-12] MEDS: LUMINAL 64.7999999999999972 MG PO (17:31)
[2024-02-12] MEDS: CRESTOR 5 MG PO (17:32)
[2024-02-13] MEDS: ROXICODONE 10 MG PO ×4 (00:51→22:52)
[2024-02-13 02:52] VITALS: BP 117/73
[2024-02-13] MEDS: DECADRON 4 MG IV ×3 (04:54→20:32)
[2024-02-13] MEDS: FLUSH (NSS) 3 FLUSH IV (04:54)
[2024-02-13] MEDS: MORPHINE SULFATE 1 MG IV (05:05)
[2024-02-13 05:55] VITALS: BMI 20.6
[2024-02-13] MEDS: ATROVENT NEBULES 0.5 MG INH ×3 (05:56→19:15)
[2024-02-13] MEDS: XOPENEX 1.25 MG INHALANT SOLUTION INH ×4 (05:56→19:15)
[2024-02-13] MEDS: PULMICORT 0.5 MG INH ×2 (06:13→19:15)
[2024-02-13 07:38] LABS: % Eosinophils 0.1 % (0-6); % Monocytes 5.1 % (1.7-9.3); % Neutrophils 84.8 % (42.2-75.2); Absolute Immature Granulocytes 0.1 10^3/uL (0-0.05); Absolute Lymphocytes 0.6 10^3/uL (1.2-3.4); Absolute Monocytes 0.4 10^3/uL (0.1-0.6); Hematocrit 33.2 % (37.0-47.0); Hemoglobin 10.6 g/dL (12.0-16.0); Mean Corp Hgb Conc. 31.9 g/dL (33.0-37.0); Mean Corpuscular Hgb 26.7 pg (27.0-31.0); Mean Corpuscular Volume 83.6 fL (81.0-99.0); Mean Platelet Volume 9.6 fL (7.4-10.4); Nucleated Red Blood Cells % 0 %; Platelet Count 150 10^3/uL (130-400); Red Blood Cell Count 3.97 10^6/uL (4.20-5.40); Red Cell Dist. Width 24.9 % (11.5-14.5); White Blood Cell Count 7.1 10^3/uL (4.8-10.8)
[2024-02-13 07:47] VITALS: BP 120/66
[2024-02-13] MEDS: PROTONIX 40 MG PO (08:02)
[2024-02-13] MEDS: MUCINEX 600 MG PO (08:02)
[2024-02-13] MEDS: TOPROL XL 50 MG PO ×2 (08:02→20:29)
[2024-02-13] MEDS: SODIUM CHLORIDE 1 GRAM PO ×2 (08:03→20:30)
[2024-02-13] MEDS: RESTASIS 0.05% OPHTHALMIC EMULSION 1 DROPS OPHTH ×2 (08:03→20:29)
[2024-02-13] MEDS: ELIQUIS 5 MG PO ×2 (08:03→20:30)
[2024-02-13] MEDS: ZESTRIL 2.5 MG PO (08:03)
[2024-02-13] MEDS: ATIVAN 1 MG PO ×2 (08:03→20:30)
[2024-02-13] MEDS: VITAMIN C 500 MG PO (08:03)
[2024-02-13] MEDS: LUVOX 50 MG PO (08:04)
--- NOTE | 2024-02-13 08:49 | PN.CDI ---
CDI
- -
CDI:
Physician Documentation Request
Admit Date: 02/09/24 11:37
Dear Doctor Parish,
Clinical Indicators:
Patient admitted with worsening shortness of breath. PMH includes non small cell lung carcinoma; on home 02 @ 5L.
02/08 ED report, Physical Exam: Moderate respiratory distress
02/08 H & P, 'Chronic hypoxic respiratory failure'
02/08 Pulmonary consult, 'Acute respiratory failure with hypoxia'
02 requirements:
02/09/24
08:28 02/09/24
13:34 02/09/24
14:00
Nasal Cannula flow liters per minute 6 6 6
Due to potentially conflicting documentation, please clarify the acuity of respiratory failure:
Acute on chronic hypoxic respiratory failure
Chronic hypoxic respiratory failure only (documentation complete)
Other, please specify
Use of terms such as suspected, likely, concern for, or probable (associated with a specific diagnosis that is being evaluated, monitored, or treated as if it exists) are acceptable and can be coded in the inpatient setting, when documented at the
time of discharge.
Thank you,
DAVONTE Khan RN
CDI Specialist
available via tiger text
Please use your independent medical judgment in providing your response.
[2024-02-13 09:07] LABS: ALT (SGPT) 58 U/L (0-35); AST (SGOT) 56 U/L (14-36); Blood Urea Nitrogen 18 mg/dl (7-17); Calcium 9.1 mg/dl (8.4-10.2); Carbon Dioxide 28 mmol/L (22-30); Estimated Creatinine Clearance 67 ml/min; Glucose 100 mg/dl (70-99); Magnesium 1.4 mg/dl (1.6-2.3); Potassium 4.3 mmol/L (3.5-5.1); Total Bilirubin 0.4 mg/dl (0.2-1.3); Total Protein 5.8 g/dl (6.3-8.2); eGFR > 60.00
[2024-02-13] MEDS: ROXICODONE 5 MG PO ×4 (09:08→21:35)
--- NOTE | 2024-02-13 10:02 | W.PN.PUL.V3 ---
Today's Communication / Plan
-
wean Decadron.
Wean oxygen.
Increase activity.
Diuresis as tolerated
Assessment
-
Assessment: 74-year-old former tobacco smoker with PMhx of moderate COPD, TCP, NSCLC s/p RLL lobectomy with recurrence, Crohn's disease, anxiety, HLD, HTN and seizure disorder who p/w worsening SOB. SHe also endorses worsening cough about 1-2 days
prior to coming in to ER. She believes her cough is now worse than her baseline cough. She was recently hospitalized from 11/21 - 11/27/2023 for MF-PNA with acute COPD exacerbation, DC'd on prednisone taper and Abx. She also was last hospitalized
here from 01/26 - 01/31/2024 with R-sided PE, and suspected R-sided pneumonitis vs MF-PNA, however the former was suspected. She was DC'd home on prednisone + Eliquis. She's now here with worsening SOB, cough, was afebrile in ER, , HR 102, RR 24
and SpO2 97% on 6L/min. Procal 0.07, urine and blood Cx collected, and CXR showed b/l pleural effusions with extensive R-sided pneumonitis/pneumonia. 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 Camacho. She is currently on 5L/min,
and she uses this at home. DEnies CP, JIMÉNEZ, abd pain, f/c.
Chronic conditions prior to arrival:
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
Hypertension
Seizure disorder
COPD
Anxiety/Depressive disorder
Osteoarthritis
Ruptured gallbladder and poss stones in bile duct s/p Cholecystectomy 1975
Pneumonia(2015)
Hyponatremia
Adenocarcinoma RLL, RUL/NSCLC, known to [place] s/p Right lower lobectomy (08/22/2022)
Recurrent malignant pleural effusions s/p pleurx R
Hay Fever
Appendectomy(1970)
Delayed closure of abdominal wounds (1970)
Partial Small Bowel Resection(2014)
Facelift 2 surgeries back to back (03/25/19)
Bilat eye lift - Sep 2020
Cataract-lens implants January 2021
Impression:
#Acute respiratory failure with hypoxia - suspect this is multifactorial from COPD exacerbation in setting of volume overload and recent pneumonitis; difficult to rule out if she has a recurrent PNA
#NSCLC s/p R-pleurx - drains weekly on , gets out about 50cc per session
#Recent Dx acute R-sided submassive PE now on Eliquis
#Hyponatremia
#Metabolic alkalosis
Plan:
.
Pulmonary status is stable but tenuous
Supplemental oxygen as needed-usually uses 5 L at home-weaned to home levels if able
Incentive spirometry
Breo and Michelle as an outpatient or equivalent in the hospital
Assess discharge supplemental option needs prior to discharge.
Continue diuresis as tolerated.
Monitor intake/output, lower extremity edema, renal function and weight.
Follow occasional chest x-ray
Chronic hypercapnia suspected.
Decadron with slow taper-decreased to 4 mg IV every 12 hours
Resumed PCP prophylaxis with Bactrim 3 times weekly.
Eliquis continues for submassive right sided pulmonary embolism
Pleurx catheter drainage as needed.
Follow blood sugar.
Insulin supplementation as needed.
Cultures reviewed.
Status post 3 days of cefepime and 3 doses of vancomycin.
Observe off antibiotics.
Replace electrolytes
Patient states she would contemplate comfort care if her situation worsens-pulmonary team has spoken to her about hospice as this is her seventh hospitalization in the last 6 months.
DVT prophylaxis.
Reviewed with son over the phone
Data:
CXR 02-11-2024: Moderate right pleural effusion with associated extensive right lung airspace disease, similar to prior.
CXR 02-09-2024: Bilateral pleural effusions and extensive right lung airspace disease/pneumonia, slightly progressed.
Subjective Data
-
Date of Service:
Date of Service: February 13, 2024
Chief Complaint: Pulmonary Follow Up and Dyspnea Follow Up
Subjective:
She feels about the same, no increased shortness of breath, some decreased leg swelling, no chest pain, productive cough
Review of Systems
General: Other ( per HPI)
Objective Data
Data Reviewed
Vital Signs / I&O:
Vital Signs
Temp Pulse Resp BP Pulse Ox
98 F 83 16 120/66 100
02/13/24 07:47 02/13/24 07:47 02/13/24 07:47 02/13/24 07:47 02/13/24 07:47
Intake and Output
02/12/24 02/13/24 02/14/24
06:59 06:59 06:59
Intake Total 754 / 754 1040 / 1040
Balance 754 / 754 1040 / 1040
SaO2: 100
Nasal Cannula flow liters per minute: 5
Physical Exam
General: Respiratory Distress (negative) and Comfortable
HEENT: Normocephalic and Anicteric
Cardiovascular: Regular Rhythm, Murmur, Peripheral Edema (+1 lower extremity edema bilaterally) and Other (Normal rate)
Respiratory: Wheeze (negative), Crackles (R-midlung), Rhonchi (negative), Accessory Resp Muscle Use (negative) and Other (Reduced breath sounds bilaterally (R>L))
GI: Soft, Non Distended, Non Tender and Normal Bowel Sounds
Neurology: Awake, Alert and Tremors (negative)
Skin: Warm, Dry, Cyanosis and Jaundice (n)
Labs/Micro/Reports
Lab Data
02/13/24 06:59
02/13/24 06:59
Microbiology
02/09/24 08:52 Blood/Venous Blood Culture - Preliminary
No Growth in 4 days- Final report to follow
02/09/24 08:52 Blood/Venous Blood Culture - Preliminary
No Growth in 4 days- Final report to follow
02/09/24 16:42 Nose Nasal Screen MRSA (PCR) - Final
MRSA not detected - performed by PCR methodology.
[2024-02-13 10:23] LABS: Alkaline Phosphatase 100 U/L (38-126); Chloride 91 mmol/L (98-107); Sodium 127 mmol/L (135-145)
--- NOTE | 2024-02-13 10:24 | W.PN.HOSP.TC ---
Addendum entered and electronically signed by Kaleb Lugo MD 02/13/24 10:30:
Acute on chronic hypoxic respiratory failure
Original Note:
Today's Communication/Plan
-
Monitor vital signs and see plan
Patient wants to take a break from chemotherapy, she is currently deciding if she wants to pursue hospice
Wean oxygen as tolerated
Continue with Decadron, nebs
Assessment / Plan
Assessment / Plan
General: Well Nourished and No Apparent Distress
HEENT: NormoCephalic and Anicteric
Respiratory: Clear and Wheezes
Cardiac: S1/S2 and Regular Rhythm
Breast: Deferred by me
GI: Soft, Non Tender and Non Distended
Rectal: Deferred by Provider
Genito-urinary: No Hollingsworth
Musculoskeletal: No Edema
Neuro: Awake, Alert, Oriented and AO x 3
Psych: Calm
Worsening dyspnea and shortness of breath, chronic hypoxic respiratory failure suspect multifactorial secondary to pneumonitis, COPD exacerbation along with non-small cell lung carcinoma
Per patient she is using 5 L nasal cannula at home lately however she was recently DC'd on 2 to 3 L
cw Decadron,nebs
Pulmonary following
procal not significant;abx stopped since cx remains neg , monitor
Multiple admissions with worsening shortness of breath in past few months.Patient likely leaning towards no further chemo. She will be speaking with oncology regarding further treatments. Patient is still yet to speak to Dr Ahmadi. Patient is
planning to take break from chemo and will be deciding if she wants to persue hospice.
CXR 02/10 with pleural effusion; s/p IR drainage from her pleuryx 02/11
morphine appears to help with her breathing and pain, will continue for now
Non-small cell lung carcinoma
Recurrent malignant right pleural effusion
On Avastin. Now follows up with Dr. Ahmadi outpatient
Dr Gray ([facility]) that she also follows
Multiple admissions the past few months with worsening shortness of breath. Would prefer oncology to discuss goals of care with patient and to review options for further therapy.
oncology following
periods of tachycardia likely precipitated by hypoxia and hypomagnesemia
Replete magnesium
Already on metoprolol twice daily which we will continue
Monitor
COPD exacerbation
Continue Decadron
Xopenex, ipratropium
Recent pulmonary embolism
Continue Eliquis
History of hypertension
Continue lisinopril and Toprol
Sinus tachycardia
already on toprol
Crohn's disease status post subtotal colectomy with ileostomy
Monitor
Hypomagnesemia
Replete
Hypokalemia
Replete
Hyperlipidemia
Seizure disorder
Continue phenobarbital
Anxiety/depression
Chronic hyponatremia
Sodium tabs and fluid restriction
DVT prophylaxis
Eliquis
Code status
DNR/DNI, discussed with patient this admission
Spoke with patient 02/09 in length. She wants to discuss her prognosis with oncology and she appears to think she cannot do anymore chemotherapy.
Patient is still yet to speak to Dr Ahmadi. Patient is planning to take break from chemo and will be deciding if she wants to persue hospice. She wants to decide and will let us know by tomorrow.
Please do not tell Son regarding patient thinking of perusing hospice. She wants to tell him.
I spent a total of 51 minutes with the patient or on the floor. More than 50% of this time involved counseling and coordination of care.
Anticipated Discharge: 24 - 48 hours
Subjective/Interval History
-
Date of Service: February 13, 2024
denies nausea
Objective Data
-
Labs:
Laboratory Results
02/13/24
06:59
WBC 7.1
Hgb 10.6 L
Hct 33.2 L
Plt Count 150
Sodium 127 L
Potassium 4.3
Chloride 91 L
Carbon Dioxide 28
BUN 18 H
Creatinine 0.3 L
Glucose 100 H
Calcium 9.1
Total Bilirubin 0.4
AST 56 H
ALT 58 H
Alkaline Phosphatase 100
Vital Signs:
Vital Signs
Temp Pulse Resp BP Pulse Ox
98 F 83 16 120/66 100
02/13/24 07:47 02/13/24 07:47 02/13/24 07:47 02/13/24 07:47 02/13/24 10:02
I&O
02/12/24 02/13/24 02/14/24
06:59 06:59 06:59
Intake Total 754 / 754 1040 / 1040
Balance 754 / 754 1040 / 1040
[2024-02-13] MEDS: MAGNESIUM SULFATE 50 IV (11:13)
[2024-02-13 11:17] VITALS: BP 115/61
--- NOTE | 2024-02-13 13:40 | CM ---
Reviewed chart, w/u ongoing and patient short of breath. Sill requiring acute care.
Plan: Case management will continue to follow and assist with discharge planning. Home when stable.
--- NOTE | 2024-02-13 14:22 | W.PN.ONC2 ---
Today's Communication / Plan
-
continue GOC support
Impression
Impression
SOB/ hypoxia - multifactorial - pneumonia/ pneumonitis/ pleural effusions/COPD/ NSCLC
NSCLC metastatic
Crohn
Plan
Plan
1. SOB/ hypoxia - pneumonia/ pneumonitis/ pleural effusion- COPD - NSCLC
-on steroids / antibiotics
-cont current therapy/ supportive care as per pulmonary/ primary service
2. NSCLC -stage IV -plan for palliative treatment holiday, pt request, to allow for improvement in overall clinical status, performance status, and nutrition
Subjective/Objective
Subjective
afebrile, no hypotension, 4L NC
using oxycodone IR prn pain
denies bleeding
Vital Signs:
Vital Signs
Temp Pulse Resp BP Pulse Ox
98 F 90 18 115/61 98
02/13/24 11:17 02/13/24 13:37 02/13/24 13:37 02/13/24 11:17 02/13/24 13:37
Lab Results:
Laboratory Data
WBC 7.1 10^3/uL (4.8-10.8) 02/13/24 06:59
Hgb 10.6 g/dL (12.0-16.0) L 02/13/24 06:59
Plt Count 150 10^3/uL (130-400) 02/13/24 06:59
eGFR > 60.00 02/13/24 06:59
Physical Exam
HEENT: No Jaundice
Cardiology: Normal Sinus Rhythm
Pulmonary: Other (diminished b/l bases)
GI: Soft
Extremities: No Edema
Review of Systems
Review of Systems
Review of systems notable for subjective, otherwise negative
[2024-02-13 15:40] VITALS: BP 125/76
[2024-02-13] MEDS: LUMINAL 64.7999999999999972 MG PO (17:23)
[2024-02-13] MEDS: CRESTOR 5 MG PO (17:23)
[2024-02-13 23:07] VITALS: BP 123/80
[2024-02-14] MEDS: ROXICODONE 5 MG PO ×4 (02:00→20:43)
[2024-02-14] MEDS: MORPHINE SULFATE 1 MG IV ×2 (02:28→18:38)
[2024-02-14] MEDS: ROXICODONE 10 MG PO ×4 (03:32→22:23)
[2024-02-14 06:07] LABS: % Basophils 0.2 % (0-2); % Eosinophils 0.2 % (0-6); % Immature Granulocytes 0.9 % (0-0.5); % Lymphocytes 14.1 % (20.5-51.1); % Monocytes 12.4 % (1.7-9.3); % Neutrophils 72.2 % (42.2-75.2); Absolute Lymphocytes 0.7 10^3/uL (1.2-3.4); Absolute Monocytes 0.6 10^3/uL (0.1-0.6); Absolute Neutrophils 3.3 10^3/uL (1.4-6.5); Hematocrit 34.4 % (37.0-47.0); Hemoglobin 10.6 g/dL (12.0-16.0); Mean Corp Hgb Conc. 30.8 g/dL (33.0-37.0); Mean Corpuscular Hgb 26.4 pg (27.0-31.0); Mean Corpuscular Volume 85.8 fL (81.0-99.0); Mean Platelet Volume 9.8 fL (7.4-10.4); Nucleated Red Blood Cells % 0 %; Platelet Count 154 10^3/uL (130-400); Red Blood Cell Count 4.01 10^6/uL (4.20-5.40); Red Cell Dist. Width 24.6 % (11.5-14.5); White Blood Cell Count 4.6 10^3/uL (4.8-10.8)
[2024-02-14 06:12] VITALS: BMI 19.6
[2024-02-14 06:33] LABS: ALT (SGPT) 55 U/L (0-35); AST (SGOT) 44 U/L (14-36); Albumin 2.9 g/dl (3.5-5.0); Alkaline Phosphatase 109 U/L (38-126); Blood Urea Nitrogen 16 mg/dl (7-17); Calcium 8.6 mg/dl (8.4-10.2); Carbon Dioxide 33 mmol/L (22-30); Chloride 91 mmol/L (98-107); Estimated Creatinine Clearance 65 ml/min; Glucose 103 mg/dl (70-99); Magnesium 1.4 mg/dl (1.6-2.3); Sodium 130 mmol/L (135-145); Total Bilirubin 0.3 mg/dl (0.2-1.3); Total Protein 5.6 g/dl (6.3-8.2); eGFR > 60.00
[2024-02-14] MEDS: LUVOX 50 MG PO (07:19)
[2024-02-14] MEDS: ZESTRIL 2.5 MG PO (07:19)
[2024-02-14] MEDS: ELIQUIS 5 MG PO ×2 (07:20→20:43)
[2024-02-14] MEDS: TOPROL XL 50 MG PO ×2 (07:20→20:43)
[2024-02-14] MEDS: MUCINEX 600 MG PO (07:20)
[2024-02-14] MEDS: DECADRON 4 MG IV (07:20)
[2024-02-14] MEDS: PROTONIX 40 MG PO (07:20)
[2024-02-14] MEDS: ATIVAN 1 MG PO ×2 (07:20→20:43)
[2024-02-14] MEDS: SODIUM CHLORIDE 1 GRAM PO ×2 (07:20→20:43)
[2024-02-14] MEDS: RESTASIS 0.05% OPHTHALMIC EMULSION 1 DROPS OPHTH ×2 (07:20→20:44)
[2024-02-14] MEDS: VITAMIN C 500 MG PO (07:21)
[2024-02-14] MEDS: XOPENEX 1.25 MG INHALANT SOLUTION INH ×3 (07:35→19:30)
[2024-02-14] MEDS: ATROVENT NEBULES 0.5 MG INH ×3 (07:35→19:30)
[2024-02-14] MEDS: PULMICORT 0.5 MG INH ×2 (07:36→19:30)
[2024-02-14 07:42] VITALS: BP 130/77
--- NOTE | 2024-02-14 09:09 | W.PN.HOSP.TC ---
Today's Communication/Plan
-
Continue with another magnesium infusion
Found to have a 4 g magnesium infusion on the day of her discharge to get her through the weekend
Plan is to hold off on further chemotherapy till seen by oncology
Continue prednisone taper as per pulmonary
Assessment / Plan
Assessment / Plan
General: Well Nourished and No Apparent Distress
HEENT: NormoCephalic and Anicteric
Respiratory: Clear and Wheezes
Cardiac: S1/S2 and Regular Rhythm
Breast: Deferred by me
GI: Soft, Non Tender and Non Distended
Rectal: Deferred by Provider
Genito-urinary: No Hollingsworth
Musculoskeletal: No Edema
Neuro: Awake, Alert, Oriented and AO x 3
Psych: Calm
Worsening dyspnea and shortness of breath, chronic hypoxic respiratory failure suspect multifactorial secondary to pneumonitis, COPD exacerbation along with non-small cell lung carcinoma
Per patient she is using 5 L nasal cannula at home lately however she was recently DC'd on 2 to 3 L
cw Decadron,nebs/continue to taper hopefully prednisone by February 14
Pulmonary following
procal not significant;abx stopped since cx remains neg , monitor
Multiple admissions with worsening shortness of breath in past few months.Patient likely leaning towards no further chemo. She will be speaking with oncology regarding further treatments. Patient is still yet to speak to Dr Ahmadi. Patient is
planning to take break from chemo and will be deciding if she wants to persue hospice.
CXR 02/10 with pleural effusion; s/p IR drainage from her pleuryx 02/11
morphine appears to help with her breathing and pain, will continue for now/we discussed pain management with long-acting MS Contin but she really does not want to make much of a change now and will take up subject with oncology
Non-small cell lung carcinoma
Recurrent malignant right pleural effusion
On Avastin. Now follows up with Dr. Ahmadi outpatient
Dr Gray ([facility]) that she also follows
Multiple admissions the past few months with worsening shortness of breath. Would prefer oncology to discuss goals of care with patient and to review options for further therapy.
oncology following
periods of tachycardia likely precipitated by hypoxia and hypomagnesemia
Replete magnesium
Already on metoprolol twice daily which we will continue
Monitor
COPD exacerbation
Continue Decadron
Xopenex, ipratropium
Recent pulmonary embolism
Continue Eliquis
History of hypertension
Continue lisinopril and Toprol
Sinus tachycardia
already on toprol
Crohn's disease status post subtotal colectomy with ileostomy
Monitor
Hypomagnesemia
Replete
Hypokalemia
Replete
Hyperlipidemia
Seizure disorder
Continue phenobarbital
Anxiety/depression
Chronic hyponatremia
Sodium tabs and fluid restriction
DVT prophylaxis
Eliquis
Code status
DNR/DNI, discussed with patient this admission
Spoke with patient 02/09 in length. She wants to discuss her prognosis with oncology and she appears to think she cannot do anymore chemotherapy.
Patient is still yet to speak to Dr Ahmadi. Patient is planning to take break from chemo and will be deciding if she wants to persue hospice. She wants to hold off and plan on discharge from February 14
Please do not tell Son regarding patient thinking of perusing hospice. She wants to tell him.
I spent a total of 51 minutes with the patient or on the floor. More than 50% of this time involved counseling and coordination of care.
Anticipated Discharge: Within 24 hours
Subjective/Interval History
-
Date of Service: February 14, 2024
Really need to go home by tomorrow' still having some pain issues
Objective Data
-
Labs:
Laboratory Results
02/14/24
05:30
WBC 4.6 L
Hgb 10.6 L
Hct 34.4 L
Plt Count 154
Sodium 130 L
Potassium 4.0
Chloride 91 L
Carbon Dioxide 33 H
BUN 16
Creatinine 0.3 L
Glucose 103 H
Calcium 8.6
Total Bilirubin 0.3
AST 44 H
ALT 55 H
Alkaline Phosphatase 109
Vital Signs:
Vital Signs
Temp Pulse Resp BP Pulse Ox
98.3 F 85 16 130/77 99
02/14/24 07:42 02/14/24 07:42 02/14/24 07:42 02/14/24 07:42 02/14/24 07:42
I&O
02/13/24 02/14/24 02/15/24
06:59 06:59 06:59
Intake Total 1040 / 1040 1080 / 1080
Balance 1040 / 1040 1080 / 1080
Review of Systems
-
History Source: Patient
Respiratory: Reports No Symptoms and Trouble Breathing
Cardiac: Reports No Symptoms
Physical Exam
-
General: Cachectic
HEENT: Normocephalic
Respiratory: Crackles
Cardiac: Regular Rhythm
GI: Soft
Musculoskeletal: Clubbing
Neuro: Awake and Alert
Psych: Anxious
Data Reviewed
-
Total Time Spent with Patient (in minutes): 56
Labs: Labs Reviewed by me (White count 4.6/sodium up to 130 with a chloride of 91 and a BUN is now 16 from 18 with a creatinine of stable at 0.3 blood sugar stable magnesium remains depressed at 1.4)
[2024-02-14] MEDS: MAGNESIUM SULFATE 50 IV (09:22)
--- NOTE | 2024-02-14 10:03 | W.PN.PUL.V3 ---
Today's Communication / Plan
-
.
Wean oxygen.
Change Decadron to prednisone.
Increase activity.
Assessment
-
Assessment: 74-year-old former tobacco smoker with PMhx of moderate COPD, TCP, NSCLC s/p RLL lobectomy with recurrence, Crohn's disease, anxiety, HLD, HTN and seizure disorder who p/w worsening SOB. SHe also endorses worsening cough about 1-2 days
prior to coming in to ER. She believes her cough is now worse than her baseline cough. She was recently hospitalized from 11/21 - 11/27/2023 for MF-PNA with acute COPD exacerbation, DC'd on prednisone taper and Abx. She also was last hospitalized
here from 01/26 - 01/31/2024 with R-sided PE, and suspected R-sided pneumonitis vs MF-PNA, however the former was suspected. She was DC'd home on prednisone + Eliquis. She's now here with worsening SOB, cough, was afebrile in ER, , HR 102, RR 24
and SpO2 97% on 6L/min. Procal 0.07, urine and blood Cx collected, and CXR showed b/l pleural effusions with extensive R-sided pneumonitis/pneumonia. 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 Camacho. She is currently on 5L/min,
and she uses this at home. DEnies CP, JIMÉNEZ, abd pain, f/c.
Chronic conditions prior to arrival:
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
Hypertension
Seizure disorder
COPD
Anxiety/Depressive disorder
Osteoarthritis
Ruptured gallbladder and poss stones in bile duct s/p Cholecystectomy 1975
Pneumonia(2015)
Hyponatremia
Adenocarcinoma RLL, RUL/NSCLC, known to [place] s/p Right lower lobectomy (08/22/2022)
Recurrent malignant pleural effusions s/p pleurx R
Hay Fever
Appendectomy(1970)
Delayed closure of abdominal wounds (1970)
Partial Small Bowel Resection(2014)
Facelift 2 surgeries back to back (03/25/19)
Bilat eye lift - Sep 2020
Cataract-lens implants January 2021
Impression:
#Acute respiratory failure with hypoxia - suspect this is multifactorial from COPD exacerbation in setting of volume overload and recent pneumonitis; difficult to rule out if she has a recurrent PNA
#NSCLC s/p R-pleurx - drains weekly on , gets out about 50cc per session
#Recent Dx acute R-sided submassive PE now on Eliquis
#Hyponatremia
#Metabolic alkalosis
Plan:
.
Respiratory status has not changed
Supplemental oxygen as needed-usually uses 5 L at home--Currently on 5 L-99% saturation
Incentive spirometry
Breo and Spiriva as an outpatient or equivalent in the hospital
Assess discharge supplemental option needs prior to discharge.
Mucinex continues
Diuresis as tolerated.
Monitor intake/output, lower extremity edema, renal function and weight.
Follow occasional chest x-ray
Chronic hypercapnia suspected.
Decadron with slow taper-decreased to 4 mg IV every 12 hours on 02/13/24-changed to prednisone 50 mg with slow taper
Resumed PCP prophylaxis with Bactrim 3 times weekly.
Eliquis continues for submassive right sided pulmonary embolism
Pleurx catheter drainage as needed.
Follow blood sugar.
Insulin supplementation as needed.
Cultures reviewed.
Status post 3 days of cefepime and 3 doses of vancomycin.
Observe off antibiotics.
Oncology following-reviewed with Dr. Laboy
Replace electrolytes
Patient states she would contemplate comfort care if her situation worsens-pulmonary team has spoken to her about hospice as this is her seventh hospitalization in the last 6 months.
DVT prophylaxis.
Reviewed with primary team and oncology
Data:
CXR 5-27-2024: Moderate right pleural effusion with associated extensive right lung airspace disease, similar to prior.
CXR 02-09-2024: Bilateral pleural effusions and extensive right lung airspace disease/pneumonia, slightly progressed.
Subjective Data
-
Date of Service:
Date of Service: February 14, 2024
Chief Complaint: Pulmonary Follow Up and Dyspnea Follow Up
Subjective:
No worsening shortness of breath, and offered no complaints, chest pain, abdominal pain
Review of Systems
General: Other ( per HPI)
Objective Data
Data Reviewed
Vital Signs / I&O:
Vital Signs
Temp Pulse Resp BP Pulse Ox
98.3 F 85 16 130/77 99
02/14/24 07:42 02/14/24 07:42 02/14/24 07:42 02/14/24 07:42 02/14/24 07:42
Intake and Output
02/13/24 02/14/24 02/15/24
06:59 06:59 06:59
Intake Total 1040 / 1040 1080 / 1080
Balance 1040 / 1040 1080 / 1080
SaO2: 99
Nasal Cannula flow liters per minute: 3
Physical Exam
General: Respiratory Distress (negative) and Comfortable
HEENT: Normocephalic and Anicteric
Cardiovascular: Regular Rhythm, Murmur, Peripheral Edema (+1 lower extremity edema bilaterally) and Other (Normal rate)
Respiratory: Wheeze (negative), Crackles (R-midlung), Rhonchi (negative), Accessory Resp Muscle Use (negative) and Other (Reduced breath sounds bilaterally (R>L))
GI: Soft, Non Distended, Non Tender and Normal Bowel Sounds
Neurology: Awake, Alert and Tremors (negative)
Skin: Warm, Dry, Cyanosis and Jaundice (n)
Labs/Micro/Reports
Lab Data
02/14/24 05:30
02/14/24 05:30
Microbiology
02/09/24 08:52 Blood/Venous Blood Culture - Final
No Growth - Final Report
02/09/24 08:52 Blood/Venous Blood Culture - Final
No Growth - Final Report
--- NOTE | 2024-02-14 10:42 | W.PN.ONC ---
Today's Communication / Plan
-
Continue supportive care
Recommend palliative likely transition to hospice unless performance status considerably improved
Patient fixated on magnesium levels
Impression
Impression
SOB/ hypoxia - multifactorial - pneumonia/ pneumonitis/ pleural effusions/COPD/ NSCLC
NSCLC metastatic
Crohn
Plan
Plan
1. SOB/ hypoxia - pneumonia/ pneumonitis/ pleural effusion- COPD - NSCLC
-on steroids / antibiotics
-cont current therapy/ supportive care as per pulmonary/ primary service
2. NSCLC -stage IV -plan for palliative treatment holiday, pt request, to allow for improvement in overall clinical status, performance status, and nutrition
Subjective/Objective
Subjective/Objective
No new complaints able to converse with nasal oxygen.
Vital Signs:
Vital Signs
Temp Pulse Resp BP Pulse Ox
98.3 F 85 16 130/77 99
02/14/24 07:42 02/14/24 07:42 02/14/24 07:42 02/14/24 07:42 02/14/24 10:03
Physical exam unchanged
Lab Results:
Laboratory Data
WBC 4.6 10^3/uL (4.8-10.8) L 02/14/24 05:30
Hgb 10.6 g/dL (12.0-16.0) L 02/14/24 05:30
Plt Count 154 10^3/uL (130-400) 02/14/24 05:30
eGFR > 60.00 02/14/24 05:30
--- NOTE | 2024-02-14 15:29 | CM ---
Reviewed chart, spoke with RN who stated that patient would like Palliative consult. Spoke with patient. Made consult through [employer]. Provided patient with CM contact information to call if she does not hear from anyone as she was nervous.
Plan: Case management will continue to follow and assist with discharge planning. Home with Palliative Care.
[2024-02-14 15:36] VITALS: BP 118/69
[2024-02-14] MEDS: CRESTOR 5 MG PO (17:13)
[2024-02-14] MEDS: LUMINAL 64.7999999999999972 MG PO (17:16)
[2024-02-14] MEDS: ZOFRAN 8 MG PO (17:28)
[2024-02-14 23:51] VITALS: BP 130/86
[2024-02-15] MEDS: ROXICODONE 10 MG PO ×2 (04:30→11:52)
[2024-02-15 06:00] VITALS: BMI 20.5
[2024-02-15] MEDS: MAGNESIUM SULFATE 100 IV (07:11)
[2024-02-15] MEDS: BACTRIM DS 800 MG/160 MG 1 TABLET PO (07:15)
[2024-02-15] MEDS: LUVOX 50 MG PO (07:16)
[2024-02-15] MEDS: RESTASIS 0.05% OPHTHALMIC EMULSION 1 DROPS OPHTH (07:16)
[2024-02-15] MEDS: TOPROL XL 50 MG PO (07:16)
[2024-02-15] MEDS: ZESTRIL 2.5 MG PO (07:16)
[2024-02-15] MEDS: PROTONIX 40 MG PO (07:16)
[2024-02-15] MEDS: MUCINEX 600 MG PO (07:16)
[2024-02-15] MEDS: SODIUM CHLORIDE 1 GRAM PO (07:16)
[2024-02-15] MEDS: DELTASONE 50 MG PO (07:16)
[2024-02-15] MEDS: ATIVAN 1 MG PO (07:16)
[2024-02-15] MEDS: VITAMIN C 500 MG PO (07:16)
[2024-02-15] MEDS: ELIQUIS 5 MG PO (07:16)
[2024-02-15] MEDS: ROXICODONE 5 MG PO ×2 (07:24→15:03)
[2024-02-15] MEDS: ATROVENT NEBULES 0.5 MG INH (07:31)
[2024-02-15] MEDS: XOPENEX 1.25 MG INHALANT SOLUTION INH ×2 (07:31→13:38)
[2024-02-15] MEDS: PULMICORT 0.5 MG INH (07:31)
[2024-02-15 07:39] VITALS: BP 121/87
[2024-02-15 07:45] LABS: Blood Urea Nitrogen 20 mg/dl (7-17); Calcium 8.8 mg/dl (8.4-10.2); Carbon Dioxide 35 mmol/L (22-30); Chloride 92 mmol/L (98-107); Estimated Creatinine Clearance 67 ml/min; Glucose 106 mg/dl (70-99); Magnesium 1.4 mg/dl (1.6-2.3); Potassium 4.4 mmol/L (3.5-5.1); Sodium 130 mmol/L (135-145); eGFR > 60.00
--- NOTE | 2024-02-15 09:04 | W.DS.TRANS ---
DC Summary - Negative Spotter
-
Discharge Instructions:
Discharge Diagnosis/Procedures Acute on chronic hypoxic respiratory failure
Non-small cell lung carcinoma
Hypomagnesemia
Hyponatremia
Diet Restrict fluids to 48 oz,As tolerated
Activity As tolerated
Driving Restrictions As prior to admission
Bathing Restrictions None
Instructions:
Stand-Alone Forms:
Changes to Home Medications: Yes
Discharge Medications:
DC Medications w/original date entered in [employer]
phenobarbital 64.8 mg tablet 64.8 mg PO QPM Neurological Condition 03/12/19
tiotropium bromide 18 mcg capsule with inhalation device (Spiriva with HandiHaler) 1 cap inhalation R DAILY Lung/Breathing Issues 09/26/22
sodium chloride 1,000 mg soluble tablet 1,000 mg PO BID Supplement #60 tabs 09/20/23
ascorbic acid (vitamin C) 500 mg tablet (Vitamin C) 500 mg PO DAILY Supplement 11/09/23
loratadine 10 mg tablet (Claritin) 10 mg PO DAILY Allergies 11/09/23
fluticasone furoate 200 mcg-vilanterol 25 mcg/dose inhalation powder (Breo Ellipta) 1 inh inhalation R DAILY Lung/Breathing Issues 11/22/23
lorazepam 1 mg tablet (Ativan) 1 mg PO BID Mental Health/Anxiety 12/27/23
calcitonin (salmon) 200 unit/actuation nasal spray 1 spray intranasal (ALT) DAILY RENAL 01/21/24
cholecalciferol (vitamin D3) 1,250 mcg (50,000 unit) capsule 1,250 mcg PO TU@0800 Supplement 01/21/24
cyanocobalamin (vitamin B-12) 1,000 mcg/mL injection solution 1,000 mcg IM QMONTH Supplement 01/21/24
cyclosporine 0.05 % eye drops in a dropperette (Restasis) 1 drp BOTH EYES Q12H Eye Condition 01/21/24
diphenoxylate-atropine 2.5 mg-0.025 mg tablet 1 - 2 tab PO QIDPRN PRN diarrhea 01/21/24
folic acid 1 mg tablet 1 mg PO DAILY Supplement 01/21/24
lisinopril 2.5 mg tablet 2.5 mg PO DAILY Blood Pressure 01/21/24
rosuvastatin 5 mg tablet 5 mg PO QPM High Cholesterol 01/21/24
guaifenesin 600 mg tablet, extended release 12 hr (Mucinex) 600 mg PO DAILY Congestion ##0 01/27/24
apixaban 5 mg tablet (Eliquis) 5 mg PO BID #60 tabs 01/31/24
metoprolol succinate 50 mg tablet,extended release 24 hr 50 mg PO BID HTN #60 tabs 01/31/24
ondansetron HCl 4 mg tablet 8 mg (2 x 4 mg) PO Q6HPRN PRN Nausea/Vomiting #60 tabs 01/31/24
pantoprazole 40 mg tablet,delayed release 40 mg PO DAILY GERD #30 tabs 01/31/24
fluvoxamine 50 mg tablet 50 mg PO DAILY 02/09/24
sulfamethoxazole 800 mg-trimethoprim 160 mg tablet (Bactrim DS) 1 tab PO MOWEFR@0800 02/09/24
prednisone 50 mg tablet 50 mg PO DAILY #10 tabs 02/15/24
Home Medication Changes
prednisone 50 mg tablet 50 mg PO DAILY #10 tabs 02/15/24
Pending Results: No
Total time spent discharging patient (in min): 45
--- NOTE | 2024-02-15 09:55 | W.PN.PUL.V3 ---
Today's Communication / Plan
-
Prednisone taper.
Wean oxygen.
Assess discharge supplemental oxygen needs.
Stable for proposed discharge
Assessment
-
Assessment: 74-year-old former tobacco smoker with PMhx of moderate COPD, TCP, NSCLC s/p RLL lobectomy with recurrence, Crohn's disease, anxiety, HLD, HTN and seizure disorder who p/w worsening SOB. SHe also endorses worsening cough about 1-2 days
prior to coming in to ER. She believes her cough is now worse than her baseline cough. She was recently hospitalized from 11/21 - 11/27/2023 for MF-PNA with acute COPD exacerbation, DC'd on prednisone taper and Abx. She also was last hospitalized
here from 01/26 - 01/31/2024 with R-sided PE, and suspected R-sided pneumonitis vs MF-PNA, however the former was suspected. She was DC'd home on prednisone + Eliquis. She's now here with worsening SOB, cough, was afebrile in ER, , HR 102, RR 24
and SpO2 97% on 6L/min. Procal 0.07, urine and blood Cx collected, and CXR showed b/l pleural effusions with extensive R-sided pneumonitis/pneumonia. 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 Camacho. She is currently on 5L/min,
and she uses this at home. DEnies CP, JIMÉNEZ, abd pain, f/c.
Chronic conditions prior to arrival:
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
Hypertension
Seizure disorder
COPD
Anxiety/Depressive disorder
Osteoarthritis
Ruptured gallbladder and poss stones in bile duct s/p Cholecystectomy 1975
Pneumonia(2015)
Hyponatremia
Adenocarcinoma RLL, RUL/NSCLC, known to [facility] s/p Right lower lobectomy (08/22/2022)
Recurrent malignant pleural effusions s/p pleurx R
Hay Fever
Appendectomy(1970)
Delayed closure of abdominal wounds (1970)
Partial Small Bowel Resection(2014)
Facelift 2 surgeries back to back (03/25/19)
Bilat eye lift - Sep 2020
Cataract-lens implants January 2021
Impression:
#Acute respiratory failure with hypoxia - suspect this is multifactorial from COPD exacerbation in setting of volume overload and recent pneumonitis; difficult to rule out if she has a recurrent PNA
#NSCLC s/p R-pleurx - drains weekly on , gets out about 50cc per session
#Recent Dx acute R-sided submassive PE now on Eliquis
#Hyponatremia
#Metabolic alkalosis
Plan:
.
Respiratory status has not changed
Supplemental oxygen as needed-usually uses 5 L at home--Currently on 5 L-99% saturation
Incentive spirometry
Breo and Spiriva as an outpatient or equivalent in the hospital
Assess discharge supplemental option needs prior to discharge.
Mucinex continues
Diuresis as tolerated.
Monitor intake/output, lower extremity edema, renal function and weight.
Follow occasional chest x-ray
Chronic hypercapnia suspected.
Decadron with slow taper-decreased to 4 mg IV every 12 hours on 02/13/24-changed to prednisone 50 mg with slow taper
Resumed PCP prophylaxis with Bactrim 3 times weekly.
Eliquis continues for submassive right sided pulmonary embolism
Pleurx catheter drainage as needed.
Follow blood sugar.
Insulin supplementation as needed.
Cultures reviewed.
Status post 3 days of cefepime and 3 doses of vancomycin.
Observe off antibiotics.
Oncology following-reviewed with Dr. Laboy
Replace electrolytes.
DVT prophylaxis
Patient stable for proposed discharge from a pulmonary perspective-obviously overall tenuous with all her comorbidities and high risk for recurrent hospitalizations
Patient states she would contemplate comfort care if her situation worsens-pulmonary team has spoken to her about hospice as this is her seventh hospitalization in the last 6 months.
.
Reviewed with nursing
Data:
CXR 02-11-2024: Moderate right pleural effusion with associated extensive right lung airspace disease, similar to prior.
CXR 02-09-2024: Bilateral pleural effusions and extensive right lung airspace disease/pneumonia, slightly progressed.
Subjective Data
-
Date of Service:
Date of Service: February 15, 2024
Chief Complaint: Pulmonary Follow Up and Dyspnea Follow Up
Subjective:
No change, has dyspnea exertion, offers no complaints of chest pain or abdominal pain
Review of Systems
General: Other ( per HPI)
Objective Data
Data Reviewed
Vital Signs / I&O:
Vital Signs
Temp Pulse Resp BP Pulse Ox
98.4 F 106 16 121/87 97
02/15/24 07:39 02/15/24 07:39 02/15/24 07:39 02/15/24 07:39 02/15/24 07:39
Intake and Output
02/14/24 02/15/24 02/16/24
06:59 06:59 06:59
Intake Total 1080 / 1080 720 / 720
Balance 1080 / 1080 720 / 720
SaO2: 97
Nasal Cannula flow liters per minute: 2
Physical Exam
General: Respiratory Distress (negative) and Comfortable
HEENT: Normocephalic and Anicteric
Cardiovascular: Regular Rhythm, Murmur, Peripheral Edema (+1 lower extremity edema bilaterally) and Other (Normal rate)
Respiratory: Wheeze (negative), Crackles (R-midlung), Rhonchi (negative), Accessory Resp Muscle Use (negative) and Other (Reduced breath sounds bilaterally (R>L))
GI: Soft, Non Distended, Non Tender and Normal Bowel Sounds
Neurology: Awake, Alert and Tremors (negative)
Skin: Warm, Dry, Cyanosis and Jaundice (n)
Labs/Micro/Reports
Lab Data
02/14/24:30
02/15/24 07:03
Microbiology
02/09/24 08:52 Blood/Venous Blood Culture - Final
No Growth - Final Report
02/09/24 08:52 Blood/Venous Blood Culture - Final
No Growth - Final Report
--- NOTE | 2024-02-15 12:12 | CM ---
Addendum entered by May Damian 02/15/24 15:20:
Patient is current with [facility] and wants to resume home services with them; Referral sent to [facility]
Patient wants palliative care services with
Addendum entered by May Damian 02/15/24 12:53:
IMM benefit explained and signed
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
Addendum entered by May Damian 02/15/24 12:48:
Patient requests transport home via ambulance and will pay out of pocket
Addendum entered by May Damian 02/15/24 12:46:
Home Health referral for [facility] sent via [facility]
Original Note:
Plan: discharge to home with Palliative Care

Referral was sent via [facility] yesterday by Kelly Delcid
Called the Palliative Care office and left a voicemail that the patient was being discharged to home today and asked that they contact the patient via phone.
--- NOTE | 2024-02-15 12:54 | W.DCSUMMARY ---
Discharge Summary
Discharge Data
Date of Admission: 02/09/24
Date of Discharge: 02/15/24
-
Pending Results: No
Hospital Course
74-year-old former tobacco smoker with a past medical history includes moderate COPD non-small cell lung carcinoma with a right lower lobe lobectomy with recurrence she also has a history of Crohn's disease hyperlipidemia hypertension seizure
disorder and presented with worsening shortness of breath with cough for at least 2 days prior to presentation to ED. She had a recent hospitalization in the first week of November for a multifocal pneumonia and acute COPD exacerbation was
discontinued discharged on prednisone taper and antibiotic then she was again hospitalized in mid November with a right-sided PE and suspected right-sided pneumonitis she was discharged on prednisone and Eliquis on presentation her heart rates
mildly elevated 102 with a respiratory rate of 24 6 L nasal flow oxygen which is near her baseline along with a procalcitonin of only 0.07 chest x-ray showed bilateral pleural effusions and extensive right-sided pneumonitis pneumonia. He has
indwelling [place] Pleurx catheter for drainage/she was again placed on systemic IV steroids she had been on PCP prophylaxis with Bactrim which was continued and she was continued on anticoagulation with Eliquis for her recent right-sided submassive
PE.
This particular episode of acute respiratory failure with hypoxia was suspected be multifactorial from a combination of her COPD in the setting of volume overload and recent pneumonitis along with difficult to rule out if he has a recurrent
pneumonia at this point but given the minimal elevation procalcitonin less likely. She was treated for hyponatremia and metabolic alkalosis
She was seen by oncology with their opinion being non-small cell lung carcinoma with stage IV although there is some improvement with systemic steroids the patient is unsure if she desires to continue systemic treatment for advanced malignancy and
at least wanted a chemotherapy holiday until she is seen in follow-up as an outpatient to discuss overall care plan with Dr. Ahmadi her her oncologist. This was considered not an unreasonable request in the oncology acquiesced to this and agreed
to see her in follow-up as outpatient to consider options then she also wanted to have consultation with the palliative care team which was arranged. She has been weaned to her baseline oxygen at 5 L she will be sent home on a higher dosage than
usual over prednisone to 50 mg until which time she can have further titration and tapering down she had been on actually 40 mg on a fairly lengthy taper. Recommendation from the oncology service at this time is palliative care options likely
transition to hospice given the poor performance status and unless his significant improves should be an option going forward we continue to give her almost daily magnesium infusions which she seems to be fixated on although levels of bili never
dropped below 1.4 on the date of her discharge she was given a 4 g infusion to take her through the weekend until she states she gets her Sunday infusion
Discharge Plan
-
Patient Disposition: Home with Home Care
Discharge Diagnosis/Procedures: Acute on chronic hypoxic respiratory failure
Non-small cell lung carcinoma
Hypomagnesemia
Hyponatremia
Diet: As tolerated and Restrict fluids to 48 oz
Activity: As tolerated
Driving Restrictions: As prior to admission
Bathing Restrictions: None
Referrals:
Marilyn Cortez MD [Family Provider] - in less than 1 week
Sachin Cantrell MD [Active] - 02/27/24 11:30 am
Roxanna Ahmadi MD [Active] -
Prescriptions:
New
prednisone 50 mg Tablet
50 mg PO DAILY Qty: 10 0RF
Continued
phenobarbital 64.8 MG tablet
64.8 mg PO QPM
tiotropium bromide [Spiriva with HandiHaler] 18 mcg Capsule, W/Inhalation Device
1 cap INHALATION R DAILY
sodium chloride 1,000 mg tablet,soluble
1,000 mg PO BID Qty: 60 0RF
ascorbic acid (vitamin C) [Vitamin C] 500 mg Tablet
500 mg PO DAILY
loratadine [Claritin] 10 mg Tablet
10 mg PO DAILY
fluticasone furoate-vilanterol [Breo Ellipta] 200-25 mcg/dose Blister With Device
1 inh INHALATION R DAILY
lorazepam [Ativan] 1 mg tablet
1 mg PO BID
diphenoxylate-atropine 2.5-0.025 mg Tablet
1 - 2 tab PO QIDPRN PRN (Reason: diarrhea)
calcitonin (salmon) 200 unit/actuation [place],Non-Aerosol
1 spray INTRANASAL (ALT) DAILY
Patient Comments:
patient forgets to take this med regularly.
cyanocobalamin (vitamin B-12) 1,000 mcg/mL Solution
1,000 mcg IM QMONTH
folic acid 1 mg Tablet
1 mg PO DAILY
lisinopril 2.5 mg Tablet
2.5 mg PO DAILY
cyclosporine [Restasis] 0.05 % Dropperette
1 drp BOTH EYES Q12H
rosuvastatin 5 mg Tablet
5 mg PO QPM
cholecalciferol (vitamin D3) 1,250 mcg (50,000 unit) Capsule
1,250 mcg PO TU@0800
guaifenesin [Mucinex] 600 mg Tablet Extended Release 12hr
600 mg PO DAILY Qty: 0
Eliquis 5 mg tablet
5 mg PO BID Qty: 60 1RF
ondansetron HCl 4 mg Tablet
8 mg PO Q6HPRN PRN (Reason: Nausea/Vomiting) Qty: 60 0RF
metoprolol succinate 50 mg Tablet Extended Release 24 Hr
50 mg PO BID Qty: 60 2RF
pantoprazole 40 mg Tablet,Delayed Release (Dr/Ec)
40 mg PO DAILY Qty: 30 2RF
fluvoxamine 50 mg tablet
50 mg PO DAILY
sulfamethoxazole-trimethoprim [Bactrim DS] 800-160 mg Tablet
1 tab PO MOWEFR@0800
Discontinued
prednisone 20 mg Tablet
40 mg PO DAILY 30 Days Qty: 60 0RF
oxycodone 5 mg tablet
5 mg PO Q4HPRN PRN (Reason: sevre pain)
levalbuterol tartrate [Xopenex HFA] 45 mcg/actuation Hfa Aerosol Inhaler
2 inh INHALATION R Q6HPRN PRN (Reason: sob)
Discharge Orders:
Discharge Patient (As Directed); Ordered 02/15/24
Ordered By: Teo Yen
Discharge Date and Time
Print Language: AMHARIC
[2024-02-15] MEDS: ATROVENT NEBULES INH (13:38)
[2024-02-15 15:23] VITALS: BP 110/65
== END 2024-02-15 15:59 | disposition home health service (06) | DRG 180 ==
LOC: 3 WEST ACU 11:37
PROVIDERS: Nurse Practitioner Gerontology; ADMITTING PHYSICIAN Internal Medicine; ATTENDING PHYSICIAN Internal Medicine; CONSULT PHYSICIAN Internal Medicine Critical Care Medicine; EMERGENCY PHYSICIAN Emergency Medicine; FAMILY PHYSICIAN Internal Medicine; OTHER PHYSICIAN Internal Medicine Hematology & Oncology
DX: C34.90 Malignant neoplasm of unspecified part of unspecified bronchus or lung (principal); J18.9 Pneumonia, unspecified organism; J96.21 Acute and chronic respiratory failure with hypoxia; J44.1 Chronic obstructive pulmonary disease with (acute) exacerbation; J44.0 Chronic obstructive pulmonary disease with (acute) lower respiratory infection; J91.0 Malignant pleural effusion; K50.00 Crohn's disease of small intestine without complications; E87.1 Hypo-osmolality and hyponatremia; E87.3 Alkalosis; Z87.891 Personal history of nicotine dependence; J98.4 Other disorders of lung; Z66 Do not resuscitate; Z86.711 Personal history of pulmonary embolism; E83.42 Hypomagnesemia; E87.6 Hypokalemia; E78.00 Pure hypercholesterolemia, unspecified; G40.909 Epilepsy, unspecified, not intractable, without status epilepticus; F41.9 Anxiety disorder, unspecified; F32.A Depression, unspecified; Z51.5 Encounter for palliative care
CPT/HCPCS: 36415; 71045; 71046; 80048; 80053; 80202; 81015; 82805; 83605; 83735; 83880; 84100; 84145; 85025; 87040; 87086; 87641; 93005; 94640; 96365; 96366; 96374; 96375; 99285

== ENCOUNTER 2024-02-22 08:35 | Outpatient (RCR) | payer MEDICARE, OTHER, SELFPAY ==
[2024-02-19 08:40] VITALS: BP 137/85
[2024-02-19 09:03] LABS: % Basophils 0.1 % (0-2); % Eosinophils 0.6 % (0-6); % Immature Granulocytes 0.4 % (0-0.5); % Lymphocytes 9.2 % (20.5-51.1); % Monocytes 12.7 % (1.7-9.3); Absolute Eosinophils 0.1 10^3/uL (0-0.7); Absolute Monocytes 1.4 10^3/uL (0.1-0.6); Absolute Neutrophils 8.5 10^3/uL (1.4-6.5); Hematocrit 38.1 % (37.0-47.0); Hemoglobin 11.9 g/dL (12.0-16.0); Mean Corp Hgb Conc. 31.2 g/dL (33.0-37.0); Mean Corpuscular Hgb 27.2 pg (27.0-31.0); Mean Platelet Volume 9.3 fL (7.4-10.4); Platelet Count 221 10^3/uL (130-400); Red Blood Cell Count 4.38 10^6/uL (4.20-5.40); Red Cell Dist. Width 24.7 % (11.5-14.5)
[2024-02-19] MEDS: MAGNESIUM SULFATE 108 GRAMS IV (09:04)
[2024-02-19 10:07] LABS: ALT (SGPT) 56 U/L (0-35); AST (SGOT) 57 U/L (14-36); Alkaline Phosphatase 203 U/L (38-126); Blood Urea Nitrogen 15 mg/dl (7-17); Calcium 8.8 mg/dl (8.4-10.2); Carbon Dioxide 31 mmol/L (22-30); Chloride 92 mmol/L (98-107); Glucose 120 mg/dl (70-99); Magnesium 0.9 mg/dl (1.6-2.3); Potassium 4.6 mmol/L (3.5-5.1); Sodium 130 mmol/L (135-145); Total Bilirubin 0.5 mg/dl (0.2-1.3); eGFR > 60.00
[2024-02-22] MEDS: MAGNESIUM SULFATE 108 GRAMS IV (09:05)
[2024-02-22 09:07] VITALS: BP 109/71
== END 2024-03-16 23:59 | disposition home or self-care (01) ==
LOC: OID 08:35
PROVIDERS: ATTENDING PHYSICIAN Internal Medicine Hematology & Oncology; OTHER PHYSICIAN Internal Medicine
DX: J18.8 Other pneumonia, unspecified organism; E87.6 Hypokalemia; J44.9 Chronic obstructive pulmonary disease, unspecified; J96.20 Acute and chronic respiratory failure, unspecified whether with hypoxia or hypercapnia; D64.81 Anemia due to antineoplastic chemotherapy; E87.1 Hypo-osmolality and hyponatremia; G40.409 Other generalized epilepsy and epileptic syndromes, not intractable, without status epilepticus; C34.31 Malignant neoplasm of lower lobe, right bronchus or lung; J84.114 Acute interstitial pneumonitis; J96.21 Acute and chronic respiratory failure with hypoxia
CPT/HCPCS: 96365; 36415; 80053; 83735; 85025; 96366

== ENCOUNTER 2024-02-24 09:57 | Inpatient (IN) | payer MEDICARE, OTHER, SELFPAY ==
[2024-02-24] VITALS (28 sets, daily range): BP systolic 83–161; BP diastolic 53–92; PULSE 2–168
--- NOTE | 2024-02-24 07:09 | ED.GENMED ---
History of Present Illness
General
Chief Complaint: Breathing Problem
Source: ambulance crew
Time Seen by Provider: 02/24/24 07:03
History of Present Illness
History of Present Illness:
74-year-old female presents to the emergency room via ambulance for shortness of breath. Patient found by medics to be hypoxic in the 70s. She was on a nasal cannula oxygen but the tubing was very very long. Patient is unable to provide any
history due to respiratory distress and somnolence. Review of her chart shows that she was recently hospitalized several times for pneumonia, COPD exacerbation. She has metastatic lung cancer. The last note from oncology suggests transition to
palliative care/hospice.
Past History
Past History
ED Past Medical History: Cancer, COPD, HTN, Seizures and Other (Crohn's disease, anxiety)
ED Past Surgical History: Bowel resection (For Crohn's disease with a subsequent colostomy), Cholecystectomy and Other (Partial lung lobectomy)
Social History
Tobacco: Former smoker
Alcohol: None
Drug: None
Personal:
Living: alone
Employment: Employed
Family History
Family History: Other (No significant)
Phy Exam
Physical Exam
Physical Exam:
General: Somnolent, respiratory distress, accessory muscle use
Vitals: unremarkable
Head: Atraumatic
Eyes: Pupils equal, EOMI
Throat: Airway intact, no exudates
Neck: Trachea midline
Lungs: Diffuse expiratory wheezing, decreased breath sounds
Heart: Regular rate, no murmurs
Abd: Soft, Nontender, No pulsatile mass
Neuro: Grossly nonfocal
Skin: Cool, mottled
Extremities: pulses equal b/l, peripheral cyanosis
Scores
Heart Failure Risk
Heart Failure Risk Score: Not Applicable
Course
Orders/Labs/Results
Orders:
Orders
02/24/24 07:01
EKG [Electrocardiogram (*1)] Urgent
Reason for Study: Chest Pain
02/24/24 07:02
EKG- Treatment ONCE
02/24/24 07:06
Albuterol Sulfate [Ventolin Nebules] 10 mg INH R NOW STA
02/24/24 07:07
Complete Blood Count/With Diff Urgent
Comprehensive Metabolic Panel Urgent
Lactate Level [Lactic Acid] Urgent
NT-proBNP Urgent
Procalcitonin Urgent
PCT Algorithmm Indication: Respiratory
Troponin I Urgent
CR Chest Portable - 1 View Stat
Comment:
Reason For Exam: resp distress
Reason Study Needs to be Portable: Patient Unstable
02/24/24 07:10
Venous Blood Gas Urgent
%Oxygen/Room Air: 15
02/24/24 07:13
Sodium Chloride 0.9% [Sodium Chloride 0.9% For Inhalation 3 ml] 1 vial .ROUTE .[facility]
02/24/24 07:36
Blood Culture Q30M
MABLE Source: Blood/Venous
Specimen Description:
02/24/24 07:38
Diltiazem 125 mg/125 ml Nss [Cardizem] 125 mg in 125 ml IV NOW
Initial dose in mg/hr, then titrate:: 5
Titrate to keep:: Heart rate 80-100 bpm
Titrate by mg/hr:: 5 mg/hr
Frequency of titrations (minutes):: 15
Maximum dose in mg/hr:: 15
Diltiazem HCl [Cardizem] 10 mg IV NOW STA
02/24/24 07:40
Cefepime HCl [Maxipime] 2,000 mg IV NOW STA
02/24/24 07:52
Blood Culture Q30M
MABLE Source: Blood/Venous
Specimen Description:
02/24/24 09:06
Vancomycin [Vancocin] 1,250 mg 0.9% Sodium Chloride 250 ml [Nss] 250 ml IV NOW
02/24/24 09:42
Admit/Transfer Patient As Directed
Co-Sign Provider:
Level of Care: Inpatient admission
Assign to:: IMU- Intermediate Care
Physician / Group: Dr Woodward
Diagnosis: Respiratory failure
Reason for Hospitalization: patient with increase sob and resp failure.
Expected length of stay greater than two midnights?: Yes
ELOS- Estimated Length of Stay in days: 2
I certify the patient meets the requirements for IP care: Yes
02/24/24 09:43
Code Status As Directed
Resuscitation Status: Do not resuscitate
Reached after discussion with pt or family/Healthcare POA: Yes
DNR Bracelet Application ONCE
02/24/24 09:47
PULMONARY CONSULT Routine
Consulting Provider: Sachin Cantrell
Was physician already notified: Yes
Reason for consult: Resp failure
02/24/24 Lunch
NPO
Allow oral meds: No
Allow clear liquids: No
Dexamethasone Sod Phosphate [Decadron] 4 mg IV Q6H
02/24/24 12:00
Piperacillin/Tazo 3.375 Gram [Zosyn] 3.375 gram in 50 ml IV Q6H
02/24/24 12:47
Bisacodyl [Dulcolax] 10 mg RECTAL [id number] PRN
Docusate W/Senna [Senokot-S] 1 tablet PO BIDPRN PRN
Polyethylene Glycol Powder [Miralax] 17 grams PO DAILYPRN PRN
02/24/24 12:47
Activity As Directed
Activity Level: Bedrest for limited time
Bedrest duration in hours then activity as indicated above:: 24
Pneumatic Compression Sleeves As Directed
Type: Knee high
Vital Signs As Directed
Frequency: Per unit guidelines
DX Deep Vein Thrombosis Video Routine
02/25/24 06:00
Basic Metabolic Panel IN AM
Complete Blood Count/With Diff IN AM
Abnormal Lab Results
02/24/24 02/24/24
07:07 07:10
WBC 17.1 H 10^3/uL
(4.8-10.8)
MCHC 31.3 L g/dL
(33.0-37.0)
RDW 24.9 H %
(11.5-14.5)
Abs Immat Gran (auto) 0.2 H 10^3/uL
(0-0.05)
Absolute Neuts (auto) 13.2 H 10^3/uL
(1.4-6.5)
Absolute Monos (auto) 1.6 H 10^3/uL
(0.1-0.6)
Immature Gran % 1.0 H %
(0-0.5)
Neutrophils % 77.6 H %
(42.2-75.2)
Lymphocytes % 11.0 L %
(20.5-51.1)
VBG pH 7.30 L
(7.32-7.43)
VBG pCO2 72 H* mmHg
(35-48)
VBG pO2 119 H mmHg
(30-50)
VBG HCO3 35.4 H mmol/L
(22-27)
Sodium 130 L mmol/L
(135-145)
Chloride 90 L mmol/L
(98-107)
Carbon Dioxide 33 H mmol/L
(22-30)
Creatinine 0.3 L mg/dL
(0.6-1.0)
Glucose 126 H mg/dl
(70-99)
AST 38 H U/L
(14-36)
Alkaline Phosphatase 183 H U/L
(38-126)
Total Protein 6.1 L g/dl
(6.3-8.2)
Albumin 3.1 L g/dl
(3.5-5.0)
02/24/24 07:07
02/24/24 07:07
Vital Signs
Initial and Last Documented VS:
Initial Vital Signs
Pulse Ox
99
02/24/24 06:52
Last Documented Vital Signs
Temp Pulse Resp BP Pulse Ox
96.9 F L 127 32 123/80 93
02/24/24 13:21 02/24/24 13:38 02/24/24 13:38 02/24/24 13:38 02/24/24 13:38
MDM/Problems Addressed
Differential Diagnosis Includes:
COPD exacerbation, pneumonia, pneumothorax, atelectasis
MDM/Problems Addressed:
Patient presents in respiratory distress. She was placed on BiPAP. She was also given an hour-long neb. VBG shows hypercarbic respiratory failure. With BiPAP the patient had some improvement. She was found to also have atrial fibrillation with
rapid ventricular response on her EKG. Her heart rate remained in the 160s despite improved oxygenation and some improvement in her work of breathing. Therefore Cardizem was initiated to help control her rhythm. Over time the patient's mental
status improved. She removed BiPAP herself. She was able to communicate and answer questions appropriately. Patient's son came to the emergency room. We discussed the progression of her disease and the fact that it has resulted in almost
complete atelectasis of the right lung. I had communicated with Dr. Cantrell as to the potential benefit of a bronchoscopy for this significant atelectasis. Given her progression of disease he felt like the patient was not a candidate for
bronchoscopy and really should be considering hospice. Patient will be admitted to the hospital service. She emphatically stated that she does not want to be intubated. She is not sure she is ready for hospice. She will discuss this with her son
and her oncologist.
*Radiology
Radiology exam reviewed: radiology read reviewed
*Pulse Oximetry
Patient hypoxic: yes
*EKG
Interpretation: abnormal
Heart Rate: 173
Rate: tachycardiac
Rhythm: a-fib
[place]: normal axis
Interval: normal interval
QRS Pattern: normal QRS
Ischemia: non-specific ST changes
*Railroad Accountant Interpretation
Rate: tachycardiac
Interpretation: abnormal
Heart Rate: 173
Rhythm: a-fib
*Critical Care Note
Total Time (30-74mins, 75-104mins- exclusive of procedures): 40 min
comment:
Critical care statement: A total of 40 minutes of critical care time was provided for this patient. This includes management of unstable vital signs, evaluation of the patient at bedside, reviewing the patient's pertinent medical records, discussion
with consultants, review of old EKGs and review of pertinent medical records. This time with separate from time utilized to perform the aforementioned documented procedures
Data Reviewed
Review of Other/Old Records Reveals: Discharge Summary
Patient Management
Social determinants of health affecting care: Living situation
ED Attending Note
-
Portions of this chart may have been created with voice recognition software.� Occasional wrong word or��sound alike� substitutions may have occurred due to the inherent limitations of voice recognition software.
Discharge Plan
Departure
Patient Disposition: Admit
Date of Disposition: 02/24/24
Time of Disposition: 07:50
Presentation/result/management discussed w/ accepting MD/DO: Hospitalist
Condition: Serious
Discharge Problem:
Pneumonia, Respiratory failure, Atrial fibrillation with rapid ventricular response, Atelectasis of right lung
Interventions
Interventions:
*Risk Screen - Suicide Last Done: 02/24/24 07:38
*General Assessment Last Done: 02/24/24 07:38
*Neglect/Abuse Screening Last Done: 02/24/24 07:38
ED- Fall Risk Assessment Last Done: 02/24/24 07:38
*ED COVID-19 Vaccine History Last Done: 02/24/24 07:38
*Nursing Disposition Last Done: 02/24/24 13:12
ED- Cardiac Assessment Last Done: 02/24/24 07:38
ED- Pulmonary Assessment Last Done: 02/24/24 07:38
Discharge Date and Time
Discharge Date/Time: 02/24/24 13:11
[2024-02-24] MEDS: VENTOLIN NEBULES 10 MG INH (07:14)
[2024-02-24 07:23] LABS: Venous Blood Gas B.E. 6.4 mmol/L (-4 to +4); Venous Blood Gas HCO3 35.4 mmol/L (22-27); Venous Blood Gas O2 Sat % 99.6 %; Venous Blood Gas pO2 119 mmHg (30-50)
[2024-02-24 07:24] LABS: % Basophils 0.2 % (0-2); % Eosinophils 0.9 % (0-6); % Monocytes 9.3 % (1.7-9.3); % Neutrophils 77.6 % (42.2-75.2); Absolute Eosinophils 0.2 10^3/uL (0-0.7); Absolute Immature Granulocytes 0.2 10^3/uL (0-0.05); Absolute Lymphocytes 1.9 10^3/uL (1.2-3.4); Absolute Monocytes 1.6 10^3/uL (0.1-0.6); Absolute Neutrophils 13.2 10^3/uL (1.4-6.5); Hematocrit 39.6 % (37.0-47.0); Hemoglobin 12.4 g/dL (12.0-16.0); Mean Corp Hgb Conc. 31.3 g/dL (33.0-37.0); Mean Corpuscular Hgb 27.4 pg (27.0-31.0); Mean Corpuscular Volume 87.6 fL (81.0-99.0); Mean Platelet Volume 8.9 fL (7.4-10.4); Nucleated Red Blood Cells % 0 %; Platelet Count 394 10^3/uL (130-400); Red Blood Cell Count 4.52 10^6/uL (4.20-5.40); Red Cell Dist. Width 24.9 % (11.5-14.5); White Blood Cell Count 17.1 10^3/uL (4.8-10.8)
[2024-02-24 07:25] LABS: Venous Blood Gas O2 Therapy 15
[2024-02-24 07:26] LABS: Venous Blood Gas pCO2 72 mmHg (35-48)
[2024-02-24 07:39] LABS: Lactic Acid 1.7 mmol/L (0.7-2.0)
[2024-02-24 07:41] LABS: ALT (SGPT) 33 U/L (0-35); AST (SGOT) 38 U/L (14-36); Albumin 3.1 g/dl (3.5-5.0); Alkaline Phosphatase 183 U/L (38-126); Blood Urea Nitrogen 13 mg/dl (7-17); Calcium 9.1 mg/dl (8.4-10.2); Carbon Dioxide 33 mmol/L (22-30); Chloride 90 mmol/L (98-107); Glucose 126 mg/dl (70-99); Potassium 4.9 mmol/L (3.5-5.1); Sodium 130 mmol/L (135-145); Total Bilirubin 0.5 mg/dl (0.2-1.3); Total Protein 6.1 g/dl (6.3-8.2); eGFR > 60.00
[2024-02-24 07:53] LABS: Procalcitonin 0.08 ng/ml (0.0-0.25)
[2024-02-24 07:54] LABS: NT-proBNP 545 pg/ml; Troponin I < 0.012 ng/ml
[2024-02-24] MEDS: CARDIZEM 10 MG IV (08:09)
[2024-02-24] MEDS: CARDIZEM 125 IV ×2 (08:10→19:50)
[2024-02-24] MEDS: MAXIPIME 2000 MG IV (08:10)
--- NOTE | 2024-02-24 08:28 | EDRN ---
Patient becoming more active in bed able to speak a few words. Pulling at BiPap masking requesting it off. TT respiratory to attempt alternate oxygenation as awaiting Dr. Ahmadi for further orders.
--- NOTE | 2024-02-24 08:32 | HPS.HSE ---
Family Physician
-
Family Physician:
Chief Complaint
-
sob
History of Present Illness
Patient is 74 years old female past medical history of stage IV non-small small cell lung cancer, COPD, Crohn's, recurrent right pleural effusion, presented to the hospital with shortness of breath. Most of the information gathered from son at the
bedside and electronic medical records since patient is too weak and short of breath to discuss. Patient has been having increasing shortness of breath over the last several days that has been progressively getting worse associated with mental
status changes with decreased mentation and lethargy and this has been worse today. Patient does have some chronic dyspnea at baseline and deconditioning from recent and several hospitalizations. She does have some dry cough. No fevers or chills.
No nausea or vomiting reported. Reviewed last echocardiogram on January 2024 EF 65 to 70%, diastolic function undetermined, normal right ventricular size and function, mild aortic regurgitation, trace tricuspid regurgitation, estimated pulmonary
artery pressure 35 to 40 mmHg. Patient was in the hospital from February 08 until February 14 for acute respiratory failure and evaluated by pulmonary and oncology and hospitalist. She was treated with oxygen, steroids, antibiotics, and discussions took
place in the discontinue her chemotherapy and obtain for possible hospice in the future but decisions have not been made in terms of that as of yet. I discussed the subject and please see details in my plan. In the ER white blood cell count
17,000, sodium 130, creatinine 0.3, blood gas shows pH 7.30, pCO2 72, pO2 119, bicarb 35.4. Chest x-ray shows interval increase in near complete opacity of the right lung with severe lymphangitic carcinomatosis and pleural metastatic disease and
volume loss, small loculated pleural effusion, previous right lower lobectomy, new acute interstitial cardiogenic pulmonary edema to the left lung, small left pleural effusion, and pulmonary metastasis in the left lower lobe. She was referred to
hospitalist for further evaluation.
Medical History
Past Medical History
Past Medical History: Reports Other (Stage IV non-small small cell lung cancer, COPD, Crohn's, hypertension, seizures, recurrent right pleural effusion, anxiety, history of pulmonary embolism, chronic hyponatremia, hyperlipidemia, hypertension.)
Past Surgical History: Reports Other (Cholecystectomy, right lower lobe lobectomy, bowel resection in the past, Pleurx.)
Social History
Tobacco: Former Smoker
Alcohol: None
Drug: None
Family History
Family History: Not pertinent
Allergies / Home Medications
Allergies reflects when Allergies were last updated in [employer].
Home Medications with original date entered in [employer]
Allergy/Medication List:
Allergies
Allergy/AdvReac Type Severity Reaction Status Date / Time
acetaminophen [From Vicodin] Allergy Elevates Verified 02/24/24 07:06
ALT, AST
adagrasib [From Krazati] Allergy Unknown Verified 02/24/24 07:06
hydrocodone bitartrate Allergy Vomiting-'deathly Verified 02/24/24 07:06
[From Vicodin] sick in
stomach'
latex Allergy redness Verified 02/24/24 07:06
and
itching,
rash
meperidine HCl [From Demerol] Allergy Nausea / Verified 02/24/24 07:06
Vomiting
propoxyphene Allergy 'DARVOCET' Verified 02/24/24 07:06
[From Darvocet-N] PER
WRITTEN
ORDER FOR
03/24/19
Home Medications
phenobarbital 64.8 mg tablet 64.8 mg PO QPM Neurological Condition 03/12/19
tiotropium bromide 18 mcg capsule with inhalation device (Spiriva with HandiHaler) 1 cap inhalation R DAILY Lung/Breathing Issues 09/26/22
sodium chloride 1,000 mg soluble tablet 1,000 mg PO BID Supplement #60 tabs 09/20/23
ascorbic acid (vitamin C) 500 mg tablet (Vitamin C) 500 mg PO DAILY Supplement 11/09/23
loratadine 10 mg tablet (Claritin) 10 mg PO DAILY Allergies 11/09/23
fluticasone furoate 200 mcg-vilanterol 25 mcg/dose inhalation powder (Breo Ellipta) 1 inh inhalation R DAILY Lung/Breathing Issues 11/22/23
lorazepam 1 mg tablet (Ativan) 1 mg PO BID Mental Health/Anxiety 12/27/23
calcitonin (salmon) 200 unit/actuation nasal spray 1 spray intranasal (ALT) DAILY RENAL 01/21/24
cholecalciferol (vitamin D3) 1,250 mcg (50,000 unit) capsule 1,250 mcg PO TU@0800 Supplement 01/21/24
cyanocobalamin (vitamin B-12) 1,000 mcg/mL injection solution 1,000 mcg IM QMONTH Supplement 01/21/24
cyclosporine 0.05 % eye drops in a dropperette (Restasis) 1 drp BOTH EYES Q12H Eye Condition 01/21/24
diphenoxylate-atropine 2.5 mg-0.025 mg tablet 1 - 2 tab PO QIDPRN PRN diarrhea 01/21/24
folic acid 1 mg tablet 1 mg PO DAILY Supplement 01/21/24
lisinopril 2.5 mg tablet 2.5 mg PO DAILY Blood Pressure 01/21/24
rosuvastatin 5 mg tablet 5 mg PO QPM High Cholesterol 01/21/24
guaifenesin 600 mg tablet, extended release 12 hr (Mucinex) 600 mg PO DAILY Congestion ##0 01/27/24
apixaban 5 mg tablet (Eliquis) 5 mg PO BID #60 tabs 01/31/24
metoprolol succinate 50 mg tablet,extended release 24 hr 50 mg PO BID HTN #60 tabs 01/31/24
ondansetron HCl 4 mg tablet 8 mg (2 x 4 mg) PO Q6HPRN PRN Nausea/Vomiting #60 tabs 01/31/24
pantoprazole 40 mg tablet,delayed release 40 mg PO DAILY GERD #30 tabs 01/31/24
fluvoxamine 50 mg tablet 50 mg PO DAILY 02/09/24
sulfamethoxazole 800 mg-trimethoprim 160 mg tablet (Bactrim DS) 1 tab PO MOWEFR@0800 02/09/24
prednisone 50 mg tablet 50 mg PO DAILY #10 tabs 02/15/24
oxycodone 15 mg tablet 15 mg PO Q6H PRN pain 02/19/24
Review of Systems
-
Unable to obtain full review of systems at this time due to: Acuity
Physical Exam
Vital Signs
Vital Signs
Temp Pulse Resp BP Pulse Ox
97.8 F 167 24 93/60 93
02/24/24 08:01 02/24/24 08:09 02/24/24 08:01 02/24/24 08:09 02/24/24 08:01
Physical exam:
General: Acutely ill
HEENT: Normocephalic, Atraumatic and Moist Mucous Membranes
Respiratory: Decreased breath sounds bilateral more pronounced on the right; Negative Wheezes, Rales or Rhonchi
Cardiac: Regular Rhythm and S1/S2
GI: Soft, Nontender and Nondistended
Musculoskeletal: No Clubbing, No Cyanosis and No Edema
Neuro: Awake, Alert and Oriented
Psych: Calm
Physical Exam
General: Other
Laboratory Results
-
02/24/24 07:07
02/24/24 07:07
Laboratory Results
Lactic Acid 1.7 mmol/L (0.7-2.0) 02/24/24 07:07
Total Bilirubin 0.5 mg/dl (0.2-1.3) 02/24/24 07:07
AST 38 U/L (14-36) H 02/24/24 07:07
ALT 33 U/L (0-35) 02/24/24 07:07
Alkaline Phosphatase 183 U/L (38-126) H 02/24/24 07:07
Troponin I < 0.012 ng/ml 02/24/24 07:07
Impression/Plan
-
IMPRESSION:
Patient 74 years old female with history of lung cancer, COPD, recurrent right pleural effusions, presented to the hospital with worsening shortness of breath and found to be in acute hypoxic hypercapnic respiratory failure. Patient is very ill.
She is at risk of morbidity and mortality therefore she will need to be treated in the hospital.
PLAN:
Acute on chronic hypoxic hypercapnic respiratory failure, multifactorial etiology including most likely etiology which is advanced lung cancer, and including COPD exacerbation, malignant pleural effusion, acute on chronic diastolic congestive heart
failure, nosocomial pneumonia, sepsis, rule out VTE, other:
Oxygen supplementation and BiPAP.
Pulmonary agrees with patient to be admitted to IMU.
Pulmonary covering ICU and will reevaluate if needs to transfer to ICU or not depending on clinical course and further goals of care discussions with family.
Broad-spectrum IV antibiotics, IV Zosyn and vancomycin
IV steroids, dexamethasone 4 milligrams IV every 6 hours
IV Lasix 40 mg daily blood pressure permitting.
Heparin drip due to concerns for VTE and also while she is not taking Eliquis.
Pulmonary consult (Shakeel texted and communicated with pulmonary today)
Pulmonary asked to obtain CTA of the chest
Will repeat ABG later this afternoon.
Speech therapy for swallow eval and will keep n.p.o. with current respiratory status at this point.
Discussed with patient and son at bedside about possibility of hospice. Patient and son are processing the information but they are not committed to that at this point but they will be thinking about it. She does remain DNR/DNI. I explained
prognosis is guarded at the moment and given her presentation she is certainly critically ill. I will have manager rn case consult for hospice discussions as well.
Toxic metabolic encephalopathy likely related to hypercapnia and sepsis:
BiPAP as above
Antibiotics.
Monitor mental status closely.
Non-small cell lung carcinoma:
Recurrent malignant right pleural effusion
Last hospitalization they wanted to hold off on chemotherapy.
Oncology follow-up as outpatient if they do not decide on hospice during this hospital stay.
Acute COPD exacerbation:
Continue IV Decadron
Bronchodilators
Atrial fibrillation with rapid ventricular response:
Cardizem drip for rate control
Heparin drip for anticoagulation
Recent pulmonary embolism
CTA of the chest today
Heparin drip for now
Hypertension
IV hydralazine as needed
Crohn's disease status post subtotal colectomy with ileostomy
Monitor stool output.
Hyperlipidemia
Holding oral meds for now
Seizure disorder
Will resume AED as soon as able to take oral
Anxiety/depression
Low-dose IV Ativan as needed
Chronic hyponatremia
Monitor sodium levels
DVT prophylaxis
SCDs
On heparin drip
Code status
DNR/DNI
Total Critical Care Time 55 minutes. I was immediately available to the patient and staff. I personally examined, reviewed labs, diagnostic images/reports, interpretations, treatment plans, discussed patient care with other providers and family
or caregivers (if patient is unable to make decisions), entered orders as appropriate and documented the medical record.
[2024-02-24 09:19] LABS: Anisocytosis 1+; Normal RBC Morphology No; Ovalocytes 1+
[2024-02-24] MEDS: ATIVAN 0.5 MG IV (11:04)
[2024-02-24] MEDS: ZOSYN 50 IV ×3 (11:08→23:24)
--- NOTE | 2024-02-24 11:18 | CM ---
CM following re: discharge planning.
Hospice care evaluation consult noted.
Reviewed pt's chart, met with pt. pt's son Benigno and pt's friends at bedside.
Pt is a 74 year old female, admitted with primary dx of SOB
Pt's son reports pt lives alone in a 3SH, 2 steps to enter. Pt's son Benigno stated he is the only son. Per son, pt has 24/7 caregiver services provided by [facility] and pt is known to [facility] home care. Pt's son is awre of hospice care consult,
expressed his agreement. A list of hospice vendors provided, pt's son preferred hospice. A referral to hospice made.
PCP: Marilyn Cortez
Pharmacy: [facility]
D/C plan: hospice care with hospice.
CM will follow with discharge plan updates as hospitalization progresses
--- NOTE | 2024-02-24 12:05 | CON.PUL ---
Consultation
Consultation Request
Date/Time Consultation Requested: 02/24/2024946
Date/Time Consultation Performed: 02/24/2024 - 1149
Requesting Provider: Dr. Woodward
Performing Provider: Dr. Cantrell
Reason for Consultation: Respiratory Failure
Medical History
-
Chief Complaint: SOB
History of Present Illness:
74-year-old female with a past medical history of COPD, NSCLC s/p RLL lobectomy + RUL wedge resection s/p chemo/immunotherapy, recurrent right-sided malignant effusion s/p Pleurx catheter, Crohn's disease, hypertension, seizure disorder and anxiety
who presents with shortness of breath. She has been getting more SOB over the last few days with reduced mentation. In the ER she was on a nonrebreather saturating 99%, with BP 115/81, tachycardic to the 160s and tachypneic to 32 breaths/min. She
was afebrile to 97.8 �F. Labs showed leukocytosis 17.1, acute on chronic hypercapnia with pH: 7.3, pCO2 72, pO2 119 and O2�saturation: 99.6%. Her troponin was negative. Her proBNP was 545 and her procalcitonin was negative at 0.08. Blood
cultures were collected. CXR shows near complete opacification of the right lung consistent with progressive postobstructive pneumonia versus atelectasis, with acute interstitial pulmonary edema seen in the left lung. She was placed on 2 BiPAP in
the ER. She also was found to be in A-fib with RVR. She was given antibiotics with cefepime in the ER, plus Cardizem 10 mg push and started on a Cardizem drip. Also given nebulized albuterol and then admitted to the [facility]ist service to the
[facility], and pulmonary service now consulted for additional management/recommendations.
When I saw the patient, she was in bed, on 15 mg/h Cardizem gtt, and she was lethargic but would occasionally awaken but then go right back to sleep. She is on 4 L/min nasal cannula. Multiple family members at bedside including the patient's son,
Chad, as well as patient's friend, Daniella. We discussed code status and patient is DNR/DNI. We also discussed hospice and they would like her to be brought home for hospice if possible. Prior to her coming in, she was having occasional coughing
with difficulty bringing up her phlegm but it was not severe. Patient is currently too lethargic for me to have a conversation with.
Of note she had seen her oncologist in December 2023 and was set to start cisplatin with Alimta the week after. Patient obtained a CT of the chest today showing complete obstruction of the right mainstem bronchus with near complete consolidation of
the right lung, with severe pleural thickening throughout the right lung likely due to's pleural metastatic disease. The left-sided pleural effusion has worsened in size compared to last CT chest on 01/27/2024.
PMHx: COPD. Former smoker. Lung cancer status post partial right lower lobectomy with recurrence, KRAS positive status post chemo/immuno therapy. Recurrent right pleural effusion status post Pleurx catheter. Crohn's disease status post
colostomy. Hypertension. Seizure history. Anxiety.
PSHx: Bowel resection for Crohn's. Cholecystectomy. Partial right lower lobectomy
Past Medical History
Past Medical History: Other (Above as per HPI)
Past Surgical History: Other (Above as per HPI)
Social History
Tobacco: Former Smoker
Alcohol: None
Drug: None
Family History
Family History: Reviewed & Not Pertinent
Allergies / Home Medications
Allergies
Allergy/AdvReac Type Severity Reaction Status Date / Time
acetaminophen [From Vicodin] Allergy Elevates Verified 02/24/24 07:06
ALT, AST
adagrasib [From Krazati] Allergy Unknown Verified 02/24/24 07:06
hydrocodone bitartrate Allergy Vomiting-'deathly Verified 02/24/24 07:06
[From Vicodin] sick in
stomach'
latex Allergy redness Verified 02/24/24 07:06
and
itching,
rash
meperidine HCl [From Demerol] Allergy Nausea / Verified 02/24/24 07:06
Vomiting
propoxyphene Allergy 'DARVOCET' Verified 02/24/24 07:06
[From Darvocet-N] PER
WRITTEN
ORDER FOR
03/24/19
Home Medications
�Medication �Instructions �Recorded �Confirmed �Last Taken �Type
phenobarbital 64.8 mg tablet 64.8 mg PO QPM Neurological 03/12/19 02/24/24 02/21/24 History
Condition
tiotropium bromide 18 mcg capsule 1 cap inhalation R DAILY 09/26/22 02/24/24 02/22/24 History
with inhalation device (Spiriva Lung/Breathing Issues
with HandiHaler)
sodium chloride 1,000 mg soluble 1,000 mg PO BID Supplement #60 tabs 09/20/23 02/24/24 02/22/24 Rx
tablet
ascorbic acid (vitamin C) 500 mg 500 mg PO DAILY Supplement 11/09/23 02/24/24 02/22/24 History
tablet (Vitamin C)
loratadine 10 mg tablet (Claritin) 10 mg PO DAILY Allergies 11/09/23 02/24/24 02/22/24 History
fluticasone furoate 200 1 inh inhalation R DAILY 11/22/23 02/24/24 02/22/24 History
mcg-vilanterol 25 mcg/dose Lung/Breathing Issues
inhalation powder (Breo Ellipta)
lorazepam 1 mg tablet (Ativan) 1 mg PO BID Mental Health/Anxiety 12/27/23 02/24/24 02/22/24 History
calcitonin (salmon) 200 1 spray intranasal (ALT) DAILY 01/21/24 02/24/24 02/22/24 History
unit/actuation nasal spray RENAL
cholecalciferol (vitamin D3) 1,250 1,250 mcg PO TU@0800 Supplement 01/21/24 02/24/24 02/22/24 History
mcg (50,000 unit) capsule
cyanocobalamin (vitamin B-12) 1,000 mcg IM QMONTH Supplement 01/21/24 02/24/24 01/08/24 History
1,000 mcg/mL injection solution
cyclosporine 0.05 % eye drops in a 1 drp BOTH EYES Q12H Eye Condition 01/21/24 02/24/24 02/22/24 History
dropperette (Restasis)
diphenoxylate-atropine 2.5 1 - 2 tab PO QIDPRN PRN diarrhea 01/21/24 02/24/24 01/27/24 History
mg-0.025 mg tablet 1 tablet
folic acid 1 mg tablet 1 mg PO DAILY Supplement 01/21/24 02/24/24 02/22/24 History
lisinopril 2.5 mg tablet 2.5 mg PO DAILY Blood Pressure 01/21/24 02/24/24 02/22/24 History
rosuvastatin 5 mg tablet 5 mg PO QPM High Cholesterol 01/21/24 02/24/24 02/18/24 History
guaifenesin 600 mg tablet, 600 mg PO DAILY Congestion ##0 01/27/24 02/24/24 02/22/24 History
extended release 12 hr (Mucinex)
apixaban 5 mg tablet (Eliquis) 5 mg PO BID #60 tabs 01/31/24 02/24/24 02/22/24 Rx
ondansetron HCl 4 mg tablet 8 mg (2 x 4 mg) PO Q6HPRN PRN 01/31/24 02/24/24 02/01/24 Rx
Nausea/Vomiting #60 tabs
pantoprazole 40 mg tablet,delayed 40 mg PO DAILY GERD #30 tabs 01/31/24 02/24/24 02/22/24 Rx
release
fluvoxamine 50 mg tablet 50 mg PO DAILY 02/09/24 02/24/24 02/22/24 History
sulfamethoxazole 800 1 tab PO MOWEFR@0800 02/09/24 02/24/24 02/22/24 History
mg-trimethoprim 160 mg tablet
(Bactrim DS)
prednisone 50 mg tablet 50 mg PO DAILY #10 tabs 02/15/24 02/24/24 02/22/24 Rx
oxycodone 15 mg tablet 15 mg PO Q6HPRN PRN mild pain 02/19/24 02/24/24 02/22/24 History
Review of Systems
-
Unable to Obtain full review of systems at this time due to: Acuity
Vitals / Labs / Diagnostic Testing
Vital Signs
Temp Pulse Resp BP Pulse Ox
96.9 F L 118 16 123/78 95
02/24/24 13:21 02/24/24 14:00 02/24/24 14:00 02/24/24 14:00 02/24/24 15:33
Lab Data
02/24/24 13:35
02/24/24 07:07
Laboratory Results
02/24/24 02/24/24 02/24/24
12:05 12:35 13:35
APTT Cancelled Cancelled 32.1
Microbiology
02/24/24 13:41 Nose Nasal Screen MRSA (PCR) - Final
MRSA not detected - performed by PCR methodology.
Diagnostic Testing:
Physical Exam
-
HEENT: Normocephalic and Anicteric
Cardiovascular: Irregular Rhythm, Peripheral Edema (+2 LE pitting edema b/l) and Other (Tachycardic)
Respiratory: Wheeze (negative), Rales (bilaterally (R>L)), Rhonchi (Bilateral (R)) and Accessory Resp Muscle Use (negative)
GI: Soft, Non Distended, Non Tender and Normal Bowel Sounds
Neurology: Tremors (negative) and Other (Lethargic, would awaken to voice but then would fall back asleep)
Skin: Warm and Dry
General: Comfortable, Fever (negative) and Chills (negative)
Assessment
-
Assessment: 74-year-old female with a past medical history of COPD, NSCLC s/p RLL lobectomy + RUL wedge resection s/p chemo/immunotherapy, recurrent right-sided malignant effusion s/p Pleurx catheter, Crohn's disease, hypertension, seizure disorder
and anxiety who presents with shortness of breath. She has been getting more SOB over the last few days with reduced mentation. In the ER she was on a nonrebreather saturating 99%, with BP 115/81, tachycardic to the 160s and tachypneic to 32
breaths/min. She was afebrile to 97.8 �F. Labs showed leukocytosis 17.1, acute on chronic hypercapnia with pH: 7.3, pCO2 72, pO2 119 and O2�saturation: 99.6%. Her troponin was negative. Her proBNP was 545 and her procalcitonin was negative at
0.08. Blood cultures were collected. CXR shows near complete opacification of the right lung consistent with progressive postobstructive pneumonia versus atelectasis, with acute interstitial pulmonary edema seen in the left lung. She was placed
on 2 BiPAP in the ER. She also was found to be in A-fib with RVR. She was given antibiotics with cefepime in the ER, plus Cardizem 10 mg push and started on a Cardizem drip. Also given nebulized albuterol and then admitted to the hospitalist
service to the [facility], and pulmonary service now consulted for additional management/recommendations.
Chronic conditions INSPECTOR ADVANCED COMPOSITE:
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
Hypertension
Seizure disorder
COPD
Anxiety/Depressive disorder
Osteoarthritis
Ruptured gallbladder and poss stones in bile duct s/p Cholecystectomy 1975
Pneumonia(2015)
Hyponatremia
Adenocarcinoma RLL, RUL/NSCLC, known to [place] s/p Right lower lobectomy (08/22/2022) + RUL wedge resection
Recurrent malignant pleural effusions s/p pleurx R
Hay Fever
Appendectomy(1970)
Delayed closure of abdominal wounds (1970)
Partial Small Bowel Resection(2014)
Facelift 2 surgeries back to back (03/25/19)
Bilat eye lift - Sep 2020
Cataract-lens implants January 2021
Impression:
#Acute on chronic respiratory failure with hypoxia + hypercapnea - suspect this is multifactorial from acute decompensated heart failure (acute HFpEF exacerbation) + progression of her cancer now with R-mainstem obstruction (either from mucous or
tumor) in setting of COPD + volume overload and recent pneumonitis; difficult to rule out if she has a recurrent PNA
#Acute HFpEF exacerbation
#A-fib with RVR requiring cardizem gtt
#Hypomagnesemia
#NSCLC s/p RLL lobectomy + RUL wedge resection c/b malignant R-sided pleural effusion s/p r pleurx
#Recent Dx acute R-sided submassive PE now on Eliquis
#Hyponatremia
#Metabolic alkalosis
Plan:
- Continue broad spectrum Abx although unclear if this is indicated given her negative procal - currently on Zosyn + IV vanco
- Follow up blood Cx, check sputum Cx if pt can provide a sample, and if Cx remain negative for >48 hrs with no fever then would stop Abx at that time
- Check urine antigens for legionella and Strep PNA
- DC IV vanco given negative MRSA swab
- Aspiration precautions, keep HOB>30-45 degrees
- Supplemental O2 to keep SpO2 >88%
- She is currently off BiPAP and breathing comfortably on 4L/min --> re-check blood gas now --> if pCO2 stable then do bipap with sleep; if pH<7.[address] back onto bipap now. trend pH and pCO2 with serial blood gas
- NPO for now until respiratory status improves
- Start Duonebs q4hr and once respiratory status improves then change to QID to allow pt to sleep at night
- Start budesonide BID
- Start mucomyst with vest therapy to see if that helps her R-mainstem obstruction
- Flutter valve
- Continue systemic steroids with PCP ppx given she has been on steroids for >3 weeks
- Consult IR for R-sided pleurX drainage
- Send fluid off for cytology, cell count and cultures
- Diuresis with IV lasix
- Heart rate control with goal HR<110bpm
- Replete electrolytes with K>4, Mg>2
- Incentive spirometer once pt's respiratory status improves
- Maintain euglycemia with goal BG >100 and <180
- prn nebulized bronchodilators
- DVT ppx
Pulmonary service will continue to follow along.
I spoke to the patient's son, Benigno as well as the patient's friend, Daniella at bedside. They understand that the patient has poor prognosis and they would like her to be brought home on hospice. I will consult hospice to have this discussion with
them tomorrow. We still need to get the patient off the Cardizem drip. If patient remains only on 3-4 L/min nasal cannula, then I think she has a high likelihood of being appropriate for discharge back home as long as the patient's family can
handle her at home in this end of life scenario.
Total time spent today was 75 minutes for this encounter. Time includes reviewing laboratory test/imaging results, reviewing pertinent medical records, obtaining and reviewing medical history, performing an appropriate exam, ordering medications,
tests and procedures. Time also includes documentation of this encounter, coordinating patient care and communicating with other healthcare professionals. Total time does not include separately billed tests performed on this date of service.
Data:
CTA Chest 02-24-2024:
1. NEW COMPLETE OBSTRUCTION of the RIGHT MAINSTEM BRONCHUS with near complete consolidation of the right lung (either malignancy or endobronchial mucous plugging could be the etiology of the right lung central airway obstruction).
2. Severe airspace consolidation, interstitial disease, and pleural thickening throughout the right lung consistent with SEVERE PLEURAL METASTATIC DISEASE, LYMPHANGITIC CARCINOMATOSIS, and POSTOBSTRUCTIVE ATELECTASIS/PNEUMONIA.
3. Small complex pleural effusion in the inferior right hemithorax containing a chest tube.
4. MODERATE-SIZED LEFT PLEURAL EFFUSION which has increased in size.
5. 1.1 cm spiculated pulmonary metastasis in the left lower lobe.
6. ACUTE VERTEBRAL BODY ENDPLATE FRACTURES of T4 with complete vertebral body collapse and retropulsion of the posterior cortex into the epidural space causing moderate central canal stenosis.
TTE 01-30-2024:
Normal left ventricular chamber size. Normal left ventricular wall thickness.
Normal left ventricular systolic function. Normal regional wall motion. LV
ejection fraction is 65-70% by Caicedo's method of discs. Diastolic function
indeterminate.
Normal right ventricular size and function.
Mild aortic regurgitation.
Trace tricuspid regurgitation. Estimated pulmonary artery pressure of 35-40
mmHg. Assuming a right atrial pressure of 3 mmHg.
Compared to prior study dated 09/18/23, there is no significant change
[2024-02-24] MEDS: VANCOCIN 275 MG IV (12:06)
[2024-02-24] MEDS: DECADRON 4 MG IV ×3 (12:06→23:24)
--- NOTE | 2024-02-24 12:31 | PHA.VAN.IN ---
Assessment
- Assessment
Renal Function: Appears similar to baseline
Maximum Temperature: 97.8
Concomitant Antimicrobials: piperacillin-tazobactam
- Previous Dosing Experience
Previous Regimen: vanc 500mg q12
Date of Regimen: January 2024
Provided Trough of: 6.3
Provided AUC of: 267
Patient's SCR is: Similar to previous dosing experience
Patient's weight is: Elevated compared to previous dosing experience (Wt 50.8)
A new regimen of 750mg q12 pred AUC 421, p 28.1 tr 10
Plan
- Plan
Initial / Loading Dose: 1250 mg 02/23 12:06
Maintenance Regimen: vanc 750 mg q12h
Monitoring: consider in the upcoming days
MRSA Screen: Ordered per protocol (PCR)
Pharmacokinetics Vancomycin I
- -
Patient Age: 74
Patient Sex: Female
Vancomycin Day #: 1
Indication: Pulmonary/Respiratory
Requesting Provider: Dr Woodward
Pertinent Antimicrobial Allergies:
no pertinent allergies
Height / Weight:
Height 5 ft 2 in
Actual Weight 59.7 kg
Pertinent Past Medical History: lung CA
- Vital Signs / Lab Results
Temp Pulse Resp BP Pulse Ox
97.8 F 103 17 92/64 98
02/24/24 08:01 02/24/24 12:15 02/24/24 12:15 02/24/24 12:15 02/24/24 12:15
Lab Results - Hematology
02/24/24
07:07
WBC 17.1 H
Lab Results - Chemistry
02/24/24
07:07
BUN 13
Creatinine 0.3 L
Albumin 3.1 L
02/24/24
07:07
Lactic Acid 1.7
--- NOTE | 2024-02-24 12:46 | PHANOTE ---
med rec note- three family members in room, none know patient medication unable to get patient to answer question correctly. one of patient family member will go home to get medication log book. will use use, last admission and pharmacy at this time
[2024-02-24] MEDS: LASIX 40 MG IV (13:16)
--- NOTE | 2024-02-24 13:28 | HOSPNOTE ---
Hospice referral recieved. I called and spoke to patients son Benigno. I explained hospice and the philosophy. Benigno would like to speak to patients oncologist and also see further testing that the hospital will persue. Benigno will reach out to
hospice if warranted. I also explained palliative at Benigno request. Hospice will remain available if hospice is wanted. CM and attending updated. Benigno asked that conversation regarding hospice and palliative care not be communicated with patient
at this time, he will speak to patient about this. CM and attending updated on that request as well.
[2024-02-24 13:42] LABS: Hematocrit 39.5 % (37.0-47.0); Hemoglobin 12.6 g/dL (12.0-16.0); Mean Corp Hgb Conc. 31.9 g/dL (33.0-37.0); Mean Corpuscular Hgb 27.8 pg (27.0-31.0); Mean Corpuscular Volume 87.2 fL (81.0-99.0); Mean Platelet Volume 8.8 fL (7.4-10.4); Platelet Count 357 10^3/uL (130-400); Red Blood Cell Count 4.53 10^6/uL (4.20-5.40); Red Cell Dist. Width 24.8 % (11.5-14.5); White Blood Cell Count 16.9 10^3/uL (4.8-10.8)
[2024-02-24] MEDS: DILAUDID 0.25 MG IV ×2 (13:49→20:48)
[2024-02-24 13:51] LABS: APTT 32.1 Sec (23.4-35.0)
--- NOTE | 2024-02-24 14:15 | TRANSFER ---
Addendum entered by Shlomo Matta RN 02/24/24 18:23:
Pt arrives on hospital stretcher requiring a pullover. Cardizem and Vanco infusing upon arrival.. pt reports feeling sob, O2 increased to 6L, HOB elevated and pt repositioned; pt reports improvement. pure wick in place, joesph care provided, wound
care provided: sacrum. family present, updated and receptive. pt placed on monitors. Awaiting lab results to start heparin gtt. PRN pain med orders obtained and provided. care plan continues to be followed.
Original Note:
Per lab, new PTT and CBC needed to be redrawn and sent as previous two samples from the ER were not accepted. Heparin bolus and drip initiated upon lab results.
[2024-02-24] MEDS: HEPARIN 4800 UNITS IV (14:32)
[2024-02-24] MEDS: HEPARIN 25000 UNITS/250 ML IV (14:35)
--- NOTE | 2024-02-24 15:08 | PTOTSP ---
Speech Language Pathology
Clinical Swallow Evaluation
74F with admission for acute respiratory failure and current dx of Stage IV non-small small cell lung cancer p/w clinical s/s of severe oropharyngeal dysphagia. Aspiration risk is increased 2/2 overt s/s of aspiration with limited PO trials this
date, lethargy/deconditioning, current dx of lung ca, and multiple comorbidities (i.e. COPD, recurrent right pleural effusion). Hospice consulted, [facility] TBD.
Recommend:
1. STRICT NPO
2. Meds via non-oral means
3. Oral care 3-5x day
4. AHRP May have 1 to 2 CUP SIPS of water SPARINGLY each hour for comfort with SUPERVISION w/ ORAL CARE
5. General aspiration and reflux precautions
6. PARING MACHINE OPERATOR service to follow up, advance diet as able, and provide dysphagia treatment at the acute care level PRN
[2024-02-24 19:07] LABS: Venous Blood Gas B.E. 12.5 mmol/L (-4 to +4); Venous Blood Gas HCO3 39.6 mmol/L (22-27); Venous Blood Gas O2 Sat % 99.2 %; Venous Blood Gas pCO2 61 mmHg (35-48); Venous Blood Gas pH 7.42 (7.32-7.43); Venous Blood Gas pO2 110 mmHg (30-50)
[2024-02-24] MEDS: MUCINEX PO (19:19)
[2024-02-24 19:34] LABS: LDH 177 U/L (120-246)
[2024-02-24] MEDS: PULMICORT 0.5 MG INH (19:38)
[2024-02-24] MEDS: DUONEB 3 ML INH (19:38)
[2024-02-24] MEDS: MUCOMYST 10% 4 ML INH (19:38)
[2024-02-24 21:36] LABS: APTT > 200 Sec (23.4-35.0)
[2024-02-25] VITALS (15 sets, daily range): BP systolic 99–136; BP diastolic 63–97; PULSE 2–104; BMI 21.0
[2024-02-25] MEDS: DUONEB 3 ML INH ×5 (00:28→20:49)
[2024-02-25] MEDS: ATIVAN 0.5 MG IV ×4 (01:45→20:39)
[2024-02-25] MEDS: NSS (PRESERVATIVE FREE) 0.25 ML IV ×4 (01:46→20:39)
--- NOTE | 2024-02-25 01:50 | PTCARENOTE ---
assumed care of patient, pt drowsy but easily arousable, son at bedside, answered all questions appropriately, pt told this RN that she wants to go home tomorrow on hospice. VBG's resulted, Bipap placed on patient for bed. at 0140 pt noted to have
decreased oxygen, HR 130s- pt ripped off bipap, having panic attack. placed patient back on 4L NC, IV ativan given for anxiety per NOV. heparin gtt and cardizem gtt infusing. care ongoing.
[2024-02-25] MEDS: ZOSYN 50 IV ×4 (05:17→23:12)
[2024-02-25] MEDS: DECADRON 4 MG IV ×4 (05:17→23:12)
--- NOTE | 2024-02-25 06:32 | PTCARENOTE ---
pt extremely short of breath with minimal exertion, oxygen dropping to 80s- air marlenaggandra noted. oxygen increased for recovery, placed back to 4L after now 95%. pt panics during these events, positive support given to patient to help slow breathing. pt
asking about plan today, states she wants to go home. care ongoing.
[2024-02-25 06:37] LABS: % Basophils 0.1 % (0-2); % Immature Granulocytes 0.3 % (0-0.5); % Lymphocytes 4.1 % (20.5-51.1); % Monocytes 4.1 % (1.7-9.3); % Neutrophils 91.4 % (42.2-75.2); Absolute Lymphocytes 0.4 10^3/uL (1.2-3.4); Absolute Monocytes 0.4 10^3/uL (0.1-0.6); Absolute Neutrophils 8.9 10^3/uL (1.4-6.5); Hematocrit 40.1 % (37.0-47.0); Hemoglobin 12.5 g/dL (12.0-16.0); Mean Corp Hgb Conc. 31.2 g/dL (33.0-37.0); Mean Corpuscular Hgb 27.1 pg (27.0-31.0); Mean Corpuscular Volume 86.8 fL (81.0-99.0); Nucleated Red Blood Cells % 0 %; Platelet Count 289 10^3/uL (130-400); Red Blood Cell Count 4.62 10^6/uL (4.20-5.40); Red Cell Dist. Width 24.4 % (11.5-14.5); White Blood Cell Count 9.7 10^3/uL (4.8-10.8)
[2024-02-25 06:41] LABS: APTT 57.1 Sec (23.4-35.0)
[2024-02-25] MEDS: MUCOMYST 10% 4 ML INH ×3 (07:21→20:49)
[2024-02-25] MEDS: PULMICORT 0.5 MG INH ×2 (07:21→20:49)
[2024-02-25 07:33] LABS: ALT (SGPT) 26 U/L (0-35); AST (SGOT) 30 U/L (14-36); Albumin 2.9 g/dl (3.5-5.0); Alkaline Phosphatase 147 U/L (38-126); Blood Urea Nitrogen 17 mg/dl (7-17); Calcium 8.7 mg/dl (8.4-10.2); Carbon Dioxide 34 mmol/L (22-30); Chloride 87 mmol/L (98-107); Direct Bilirubin 0.5 mg/dl (0.0-0.4); Estimated Creatinine Clearance 67 ml/min; Glucose 99 mg/dl (70-99); Magnesium 1.1 mg/dl (1.6-2.3); Potassium 4.2 mmol/L (3.5-5.1); Sodium 131 mmol/L (135-145); Total Bilirubin 0.5 mg/dl (0.2-1.3); Total Protein 5.6 g/dl (6.3-8.2); eGFR > 60.00
--- NOTE | 2024-02-25 07:38 | PTCARENOTE ---
Pt's son arrived approx 7:30, asking to give patient water, education provided, this RN will give oral care with suction as pt was coughing immediately with sip of water for maintenance mechanic 2nd shift RN. Plan discussed with pt's son, he denies that patient wants
to go home on hospice stating that she only said that because it was mentioned initially upon arrival in ER. Will discuss with oncoming MD on rounds.
[2024-02-25] MEDS: HEPARIN 4800 UNITS IV (08:21)
[2024-02-25] MEDS: DILAUDID 0.25 MG IV ×2 (08:23→12:25)
[2024-02-25] MEDS: LASIX 40 MG IV (08:24)
[2024-02-25] MEDS: MUCINEX PO ×4 (08:24→20:46)
--- NOTE | 2024-02-25 09:13 | CM ---
Addendum entered by Niya Posada RN 02/25/24 13:03:
Met with patient and son again; He has lined up 24 hr caregivers through [facility]. The patient was hoping to go home today however understands that the hospital bed and caregivers will be setup by tomorrow. Patient and son agree to d/c
tomorrow to home with Hospice by ambulance at 10am. IMM completed.
[facility] DNR form is on the chart for MD signature.
Plan home tomorrow with Hospice at 10am by ambulance.
Addendum entered by Niya Posada RN 02/25/24 09:58:
Met with patient and son Benigno; son stated he was on the phone with a physician. Spoke with patient who stated she was anxious- nurse Disa informed. Offered patient floor layer for spiritual support and she declined.
Original Note:
Patient with Hx NSCLC, ileostomy with Dx malignant pleural effusion, COPD, CHF, pneumonia, sepsis, TME. O2 4L. Receving IV Decadron, IV Lasix, Heparin, IV Abx, IV Dilaudid prn. NPO.
Spoke with son Benigno,; contrary to prior CM notes, he has not decided on hospice and is waiting to speak with the physicians again.
CM continuing to follow.
Plan follow up with Hospice re; hospice decision.
--- NOTE | 2024-02-25 09:49 | W.PN.PUL.V3 ---
Today's Communication / Plan
-
Supplemental oxygen
BiPAP if tolerated
Pleural fluid drainage if comfort offered
Do not recommend extraordinary pulmonary interventions such as core out procedures/tracheal stenting
Comfort a priority-palliation and hospice would be appropriate
Assessment
-
Assessment: 74-year-old female with a past medical history of COPD, NSCLC s/p RLL lobectomy + RUL wedge resection s/p chemo/immunotherapy, recurrent right-sided malignant effusion s/p Pleurx catheter, Crohn's disease, hypertension, seizure disorder
and anxiety who presents with shortness of breath. She has been getting more SOB over the last few days with reduced mentation. In the ER she was on a nonrebreather saturating 99%, with BP 115/81, tachycardic to the 160s and tachypneic to 32
breaths/min. She was afebrile to 97.8 �F. Labs showed leukocytosis 17.1, acute on chronic hypercapnia with pH: 7.3, pCO2 72, pO2 119 and O2�saturation: 99.6%. Her troponin was negative. Her proBNP was 545 and her procalcitonin was negative at
0.08. Blood cultures were collected. CXR shows near complete opacification of the right lung consistent with progressive postobstructive pneumonia versus atelectasis, with acute interstitial pulmonary edema seen in the left lung. She was placed
on 2 BiPAP in the ER. She also was found to be in A-fib with RVR. She was given antibiotics with cefepime in the ER, plus Cardizem 10 mg push and started on a Cardizem drip. Also given nebulized albuterol and then admitted to the hospitalist
service to the IMU, and pulmonary service now consulted for additional management/recommendations.
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
Hypertension
Seizure disorder
COPD
Anxiety/Depressive disorder
Osteoarthritis
Ruptured gallbladder and poss stones in bile duct s/p Cholecystectomy 1975
Pneumonia(2016)
Hyponatremia
Adenocarcinoma RLL, RUL/NSCLC, known to [place] s/p Right lower lobectomy (08/22/2022) + RUL wedge resection
Recurrent malignant pleural effusions s/p pleurx R
Hay Fever
Appendectomy(1970)
Delayed closure of abdominal wounds (1970)
Partial Small Bowel Resection(2014)
Facelift 2 surgeries back to back (03/25/19)
Bilat eye lift - Sep 2020
Cataract-lens implants January 2021
Impression:
#Acute on chronic respiratory failure with hypoxia + hypercapnea - suspect this is multifactorial from acute decompensated heart failure (acute HFpEF exacerbation) + progression of her cancer now with R-mainstem obstruction (either from mucous or
tumor) in setting of COPD + volume overload and recent pneumonitis; difficult to rule out if she has a recurrent PNA
#Acute HFpEF exacerbation
#A-fib with RVR requiring cardizem gtt
#Hypomagnesemia
#NSCLC s/p RLL lobectomy + RUL wedge resection c/b malignant R-sided pleural effusion s/p r pleurx
#Recent Dx acute R-sided submassive PE now on Eliquis
#Hyponatremia
#Metabolic alkalosis
Plan:
Respiratory status slightly improved-noted ABG
Wean FiO2
BiPAP/noninvasive ventilation as tolerated
ABG 02/24/2024--61/110/7 0.42
ABG with improvement in hypercapnia and now pH 7.42-suspect back to baseline pCO2-60-65
Incentive spirometry
Nebulizers
Aspiration precautions
Speech therapy evaluation
Mucolytic's-Mucinex and Mucomyst
Nebulizers-budesonide and DuoNebs
Systemic steroids
Mucus clearing devices-incentive spirometry and flutter
Check cultures
Broad-spectrum antibiotics-Zosyn continues
Interventional radiology consulted for right-sided Pleurx drainage
Diuresis as tolerated
Monitor renal function, electrolytes, intake/output, lower extremity edema and weight
Replace electrolytes as needed
DVT prophylaxis
Nutrition
Early mobilization/physical therapy
Reviewed with son at the bedside
Reviewed with Dr. Harrington-unfortunately patient is nearing terminal status and comfort should be a priority-hospice very appropriate
Pulmonary team does not recommend extraordinary interventions such as bronchoscopy/core out procedures, tracheal stents, etc. palliation and hospice would be unfortunately appropriate
Communications:
Dr. Cantrell spoke to the patient's son 02/24/2024, Benigno as well as the patient's friend, Daniella at bedside. They understand that the patient has poor prognosis and they would like her to be brought home on hospice. I will consult hospice to have
this discussion with them tomorrow. We still need to get the patient off the Cardizem drip. If patient remains only on 3-4 L/min nasal cannula, then I think she has a high likelihood of being appropriate for discharge back home as long as the
patient's family can handle her at home in this end of life scenario.
Data:
CTA Chest 02-24-2024:
1. NEW COMPLETE OBSTRUCTION of the RIGHT MAINSTEM BRONCHUS with near complete consolidation of the right lung (either malignancy or endobronchial mucous plugging could be the etiology of the right lung central airway obstruction).
2. Severe airspace consolidation, interstitial disease, and pleural thickening throughout the right lung consistent with SEVERE PLEURAL METASTATIC DISEASE, LYMPHANGITIC CARCINOMATOSIS, and POSTOBSTRUCTIVE ATELECTASIS/PNEUMONIA.
3. Small complex pleural effusion in the inferior right hemithorax containing a chest tube.
4. MODERATE-SIZED LEFT PLEURAL EFFUSION which has increased in size.
5. 1.1 cm spiculated pulmonary metastasis in the left lower lobe.
6. ACUTE VERTEBRAL BODY ENDPLATE FRACTURES of T4 with complete vertebral body collapse and retropulsion of the posterior cortex into the epidural space causing moderate central canal stenosis.
TTE 01-30-2024:
Normal left ventricular chamber size. Normal left ventricular wall thickness.
Normal left ventricular systolic function. Normal regional wall motion. LV
ejection fraction is 65-70% by Caicedo's method of discs. Diastolic function
indeterminate.
Normal right ventricular size and function.
Mild aortic regurgitation.
Trace tricuspid regurgitation. Estimated pulmonary artery pressure of 35-40
mmHg. Assuming a right atrial pressure of 3 mmHg.
Compared to prior study dated 09/18/23, there is no significant change
Subjective Data
-
Date of Service:
Date of Service: February 25, 2024
Chief Complaint: Pulmonary Follow Up and Dyspnea Follow Up
Subjective:
Respiratory status slightly improved, did not tolerate BiPAP for long, no complaints of chest congestion, productive cough, pleurisy, abdominal pain, or increased leg swelling
Review of Systems
General: Other (Per HPI)
Objective Data
Data Reviewed
Vital Signs / I&O:
Vital Signs
Temp Pulse Resp BP Pulse Ox
97.7 F 122 20 126/78 98
02/25/24 07:44 02/25/24 08:24 02/25/24 07:26 02/25/24 08:24 02/25/24 07:26
Intake and Output
02/24/24 02/25/24 02/26/24
06:59 06:59 06:59
Intake Total 170.3 / 170.3
Output Total 1675 / 1675
Balance -1504.7 / -1504.7
SaO2: 98
Nasal Cannula flow liters per minute: 4
Physical Exam
General: Respiratory Distress (n) and Comfortable
HEENT: Normocephalic, Anicteric and Moist Mucous Membranes
Cardiovascular: Regular Rhythm
Respiratory: Clear ( prolonged expiratory time), Wheeze (Forced expiratory wheezing), Crackles (Rare basilar), Rhonchi (Few expiratory), Non-Labored Respirations, Accessory Resp Muscle Use (n) and Stridor (n)
GI: Soft, Non Distended and Non Tender
Neurology: Awake, Alert and No Motor Deficits
Skin: Warm, Good Color, Cyanosis (n), Jaundice (n) and Rash (n)
Labs/Micro/Reports
Lab Data
02/25/24 05:54
02/25/24 05:54
Laboratory Results
02/24/24 02/24/24 02/24/24
12:05 12:35 13:35
APTT Cancelled Cancelled 32.1
02/24/24 02/25/24
20:46 05:54
APTT > 200 H* 57.1 H
Microbiology
02/24/24 07:36 Blood/Venous Blood Culture - Preliminary
No Growth in 24 hours- Final report to follow
02/24/24 07:52 Blood/Venous Blood Culture - Preliminary
No Growth in 24 hours- Final report to follow
02/24/24 16:14 Urine Legionella Urinary Antigen - Final
Negative for Legionella pneumophila Serogroup 1 antigen.
A negative result does not rule out the possiblity of
Legionella infection due to other serogroups or species of
Legionella. Clinical correlation is recommended.
02/24/24 16:14 Urine Streptococcus pneumoniae Antigen (M - Final
Negative for Streptococcus pneumoniae antigen.
A negative result does not exclude infection with
Streptococcus pneumoniae. Clinical correlation is
recommended.
02/24/24 13:41 Nose Nasal Screen MRSA (PCR) - Final
MRSA not detected - performed by PCR methodology.
--- NOTE | 2024-02-25 10:13 | PTCARENOTE ---
HR increased to 144 -sinus tach on tele, Cardizem gtt increased to 15ml/hr per protocol to maintain HR 80-100. Pt reports anxiety, PRN Ativan given at this time. Pt is tachypneic and MELLISSA/MELLISSA , sat 92% on 4L at this time. Son at bedside, speech
therapist working with pt. Rec NPO continues, unless GOC changed to comfort. Pt states 'I want to eat!' Son states to pt, 'we'll have to figure that out.' Emotional support offered to pt and son, call huber in reach.
--- NOTE | 2024-02-25 10:31 | PTOTSP ---
Dysphagia Therapy
Patient is at an elevated risk for decreased breathing/swallowing coordination with swallowing, aspiration, and respiratory complications which could occur as a result of aspiration secondary to acute on chronic factors (i.e., acute PNA, right
mainstem bronchus obstruction, malignant right pleural effusion, tachypnea; stage IV small cell lung CA s/p RLL lobectomy and COPD).
After education, patient indicated she wanted to eat/drink for comfort understanding aspiration risks. Son present. Notified medical team (nurse, physician).
Recommend:
1. NPO with non-oral medications and Aspiration Risk Hydration protocol to allow sparing single sips of thin water for comfort
2. If opting for PO for comfort/pleasure understanding aspiration risks/complications: supervision, choose soft/moist foods, assist to cut into small pieces, upright as close to 90 degrees as tolerated, take small single sips/bites, use slow
rate/breaks for breathing, stop intake if coughing.
3. Oral care 3x daily
4. Will follow up pending patient/family GOC.
--- NOTE | 2024-02-25 10:41 | W.PN.HOSP.TC ---
Today's Communication/Plan
-
Pur�ed diet.
Follow further goals of care discussions with patient and family after oncology input. I texted Dr. Roxanna Ahmadi for call back.
Assessment / Plan
Assessment / Plan
IMPRESSION:
Patient 74 years old female with history of lung cancer, COPD, recurrent right pleural effusions, presented to the hospital with worsening shortness of breath and found to be in acute hypoxic hypercapnic respiratory failure. Patient is very ill.
She is at risk of morbidity and mortality therefore she will need to be treated in the hospital.
PLAN:
Acute on chronic hypoxic hypercapnic respiratory failure, multifactorial etiology including most likely etiology which is advanced lung cancer with right mainstem bronchus obstruction versus mucous plugging, COPD exacerbation, malignant pleural
effusion, acute on chronic diastolic congestive heart failure, possible pneumonia, sepsis,
Patient currently on nasal cannula.
CT chest with significant pathology including right mainstem bronchus occlusion.
I suspect the main symptomatology is coming from right mainstem bronchus occlusion. Discussed with pulmonary who had discussions with son-holding on bronchoscopy and bronchial stent as the prognosis from the cancer itself seems poor.
Son tells me that there is no more chemotherapy planned. Await callback from oncology.
Advised son at bedside to consider goals of care including hospice as that seems appropriate to me if there is no further chemotherapy planned and with her current right mainstem bronchus occlusion.
In meantime continue with antibiotics for today and if no culture positivity and procalcitonin DC antibiotics.
Continue with steroids and IV diuresis for now
Switch to oral Eliquis. No evidence of PE
Toxic metabolic encephalopathy likely related to hypercapnia and medication
BiPAP as pulmonary
Monitor mental status closely.
Non-small cell lung carcinoma:
Recurrent malignant right pleural effusion
Last hospitalization they wanted to hold off on chemotherapy.
Oncology follow-up as outpatient if they do not decide on hospice during this hospital stay.
Acute COPD exacerbation:
Continue IV Decadron
Bronchodilators
Atrial fibrillation with rapid ventricular response:
Cardizem drip for rate control
Switch back to oral anticoagulation
Hypertension
IV hydralazine as needed
Crohn's disease status post subtotal colectomy with ileostomy
Monitor stool output.
Hyperlipidemia
Holding oral meds for now
Seizure disorder
Will resume AED as soon as able to take oral
Anxiety/depression
Low-dose IV Ativan as needed
Chronic hyponatremia
Monitor sodium levels
DVT prophylaxis
SCDs
On heparin drip
Code status
DNR/DNI
Had discussion with pulmonary today-no plans for bronchoscopy of bronchial stents.
Had a long discussion with the son at bedside who understands the poor prognosis from the cancer standpoint and now significant cancer related complications. He is considering goals of care and palliative care. I advised them palliative care has
no role right now as she is quite symptomatic from her medical issues and hospice would be more appropriate if goals of care is comfort.
Went over the speech assessments and recommendations for complete n.p.o. but at this point they want comfort food. They want to at least try pur�ed. They understand the risk of aspiration .
Total time spent on today's encounter was 52 minutes which included time spent in counseling the patient/family regarding diagnosis and treatment plan as listed above, goals of care, and symptom management. Case was discussed with nursing staff,
specialists, and care coordinators/case management. All labs and imaging personally reviewed by me. Remainder the time spent in detailed review of previous records, lab data, imaging, and other medical provider documentation.
Anticipated Discharge: > 48 hours
Subjective/Interval History
-
Date of Service: February 25, 2024
sedate. She did get pain medication this morning.
Son at bedside- seen some improvement yesterday with her cognition and the breathing. This morning is not able to determine how she is as she is sedated from her pain medication.
Objective Data
-
Labs:
Laboratory Results
02/25/24 02/25/24
05:54 15:00
WBC 9.7
Hgb 12.5
Hct 40.1
Plt Count 289
APTT 57.1 H Pending
Sodium 131 L
Potassium 4.2
Chloride 87 L
Carbon Dioxide 34 H
BUN 17
Creatinine 0.4 L
Glucose 99
Calcium 8.7
Total Bilirubin 0.5
AST 30
ALT 26
Alkaline Phosphatase 147 H
Vital Signs:
Vital Signs
Temp Pulse Resp BP Pulse Ox
97.7 F 135 32 123/80 92
02/25/24 07:44 02/25/24 10:00 02/25/24 10:00 02/25/24 10:00 02/25/24 10:16
I&O
02/24/24 02/25/24 02/26/24
06:59 06:59 06:59
Intake Total 170.3 / 170.3
Output Total 1675 / 1675 800 / 800
Balance -1504.7 / -1504.7 -800 / -800
Review of Systems
-
Unable to obtain full review of systems at this time due to: Other (Sedate)
Physical Exam
-
General: Negative Comfortable (Slightly tachypneic)
HEENT: Negative Moist Mucous Membranes
Respiratory: Negative Wheezes (Anteriorly), Non Labored Respirations (Slightly tachypneic) or Accessory Resp Muscle Use
Cardiac: S1/S2, Irregular Rhythm and Tachycardic
GI: Soft
Neuro: Awake and Sedated; Negative Alert
Psych: Calm
Data Reviewed
-
Labs: Labs Reviewed by me
--- NOTE | 2024-02-25 11:17 | PTCARENOTE ---
Plan discussed with care team and pt's son, will go home on hospice tomorrow. Diet ordered, med orders adjusted per Dr. Harrington. Will dc heparin gtt and wean cardizem, orders rec'd for IV Lopressor, Eliquis. Friends in to visit, feeding whipped cream
to pt by spoon. Pt coughing and states 'I can't breathe.' Sat 92% on 3L pt tachypneic-per Respiratory therapist pt wears 4-5L at baseline. WIll adjust o2 for pt comfort. Emotional support provided.
--- NOTE | 2024-02-25 11:51 | HOSPNOTE ---
Spoke with son Benigno and he is in agreement with hospice. equipment was ordered and will be delivered today. The plan is to discharge the patient home in the morning and once home admit onto hospice services. Transport will be needed to home.
Attending and case management aware of plan. OOH DNR is needed on chart.
[2024-02-25] MEDS: LOPRESSOR 5 MG IV ×2 (12:26→23:12)
[2024-02-25] MEDS: ELIQUIS 5 MG PO ×2 (12:26→20:39)
--- NOTE | 2024-02-25 12:51 | PTCARENOTE ---
pt's HR dropped immediately to 90s after IV Lopressor dose given, Cardizem gtt off at this time.
--- NOTE | 2024-02-25 14:38 | PTCARENOTE ---
Addendum entered by Aristeo Riggs RN 02/25/24 14:41:
per IR, approx 20 mls drained from pleurex cath.
Original Note:
Pt incontinent around purewick, changed and repositioned, pericare provided. Pt tolerated approx 25% of pureed lunch tray. IR now at bedside to drain pt pleurex cath. Pt and son in agreement.
--- NOTE | 2024-02-25 15:11 | PN.IRAD.UPD ---
Update Note - IRAD
- -
WENT BEDSIDE TO DRAIN PATIENT'S RIGHT SIDED PLEUREX CATHETER. TOOK OFF 20ML'S OF CLEAR YELLOW FLUID, SON STATED THAT SHE ALWAYS GETS MINIMAL OUTPUT. REDRESSED WITH GAUZE AND TEGADERM.
[2024-02-25] MEDS: ROXICODONE 5 MG PO (15:17)
[2024-02-25] MEDS: DUONEB INH ×2 (15:29→23:10)
[2024-02-25] MEDS: MUCOMYST 10% INH (15:30)
[2024-02-25] MEDS: DILAUDID 0.5 MG IV ×2 (17:11→22:24)
--- NOTE | 2024-02-25 23:21 | PTCARENOTE ---
assumed care of patient, pt is alert, very anxious. son at bedside with many questions, answered to best of ability. pt with no complaints of SOB, 97% 4L- PW intact draining yellow urine. medicated with ativan and dilaudid per NOV. HR noted to be
climbing throughout shift, sustaining 130s. notified covering SURVEY RESEARCH PROFESSOR- x1 dose of IV lopressor given. HR down to 80s-90s after administration. pt sleeping at present. care ongoing.
[2024-02-26] VITALS: BP 109/80
[2024-02-26 02:00] VITALS: BP 140/98
[2024-02-26] MEDS: ATIVAN 0.5 MG IV ×3 (02:53→09:21)
[2024-02-26] MEDS: NSS (PRESERVATIVE FREE) 0.25 ML IV ×2 (02:54→09:21)
--- NOTE | 2024-02-26 03:04 | PTCARENOTE ---
pt found to be climbing OOB- HR 120s, tachypneic, SOB on exertion. pt placed back to bed, changed, pt stated she woke up confused, reoriented to situation. pt very anxious, given IV ativan per MAR. care ongoing.
[2024-02-26] MEDS: DUONEB INH ×2 (03:26→08:20)
[2024-02-26 04:00] VITALS: BP 118/84
[2024-02-26] MEDS: ZOSYN 50 IV (05:19)
[2024-02-26] MEDS: DECADRON 4 MG IV (05:19)
[2024-02-26 06:00] VITALS: BP 134/94
--- NOTE | 2024-02-26 06:11 | PTCARENOTE ---
pt's son in this AM with many questions. answered questions to best of ability. requesting IV dilaudid dose to be decreased back to lower dose, thinks 0.5mg is too much for patient. will make sure to relay to day shift RN.
--- NOTE | 2024-02-26 06:41 | PTCARENOTE ---
pt son out to nurses station saying his mother is asking for ativan. pt not due for IV ativan yet. notified covering BIOINFORMATICS SPECIALIST- x1 0.5mg IV ativan given per NOV.
[2024-02-26 08:00] VITALS: BP 114/83
--- NOTE | 2024-02-26 08:20 | W.PN.HOSP.TC ---
Today's Communication/Plan
-
Chest x-ray
DC home on hospice
Assessment / Plan
Assessment / Plan
IMPRESSION:
Patient 74 years old female with history of lung cancer, COPD, recurrent right pleural effusions, presented to the hospital with worsening shortness of breath and found to be in acute hypoxic hypercapnic respiratory failure. Patient is very ill.
She is at risk of morbidity and mortality therefore she will need to be treated in the hospital.
PLAN:
Acute on chronic hypoxic hypercapnic respiratory failure, multifactorial etiology including most likely etiology which is advanced lung cancer with right mainstem bronchus obstruction versus mucous plugging, COPD exacerbation, malignant pleural
effusion, acute on chronic diastolic congestive heart failure, possible pneumonia, sepsis.
CT chest with significant pathology including right mainstem bronchus occlusion.No evidence of PE.
I suspect the main symptomatology is coming from right mainstem bronchus occlusion. Discussed with pulmonary yesterday who had discussions with son-holding on bronchoscopy and bronchial stent as the prognosis from the cancer itself seems poor.
Discussed with oncology yesterday Dr. Ahmadi who recommends hospice.
With negative Pro-[place], negative cultures and no fevers will DC further antibiotics
DC further steroids and IV Lasix plan is for hospice
Toxic metabolic encephalopathy likely related to hypercapnia and medication
Improved according to the son.
Non-small cell lung carcinoma:
Recurrent malignant right pleural effusion
Last hospitalization they wanted to hold off on chemotherapy.
Oncology follow-up as outpatient if they do not decide on hospice during this hospital stay.
Acute COPD exacerbation:
Wean to oral prednisone on discharge
Bronchodilators
Atrial fibrillation with rapid ventricular response:
In sinus rhythm. In sinus tachycardia secondary to underlying medical issues. Start on a beta-donna which she was very responsive to. She is not normally on any rate control medication.
Switch back to oral anticoagulation
Hypertension
IV hydralazine as needed
Crohn's disease status post subtotal colectomy with ileostomy
Monitor stool output.
Hyperlipidemia
Holding oral meds for now
Seizure disorder
Will resume AED as soon as able to take oral
Anxiety/depression
Low-dose IV Ativan as needed
Chronic hyponatremia
Monitor sodium levels
DVT prophylaxis
SCDs
On heparin drip
Code status
DNR/DNI
Another long discussion with the son-he had discussions with oncology, pulmonary and hospice team. His goal is to make her comfortable as long as possible at home. He has arranged for 24-hour care. Is agreed upon hospice when she returns home.
He plans to take her home today.
He also wants to address any intermittent reversible medical conditions that keep her comfortable. He wants to know if it is a complete right mainstem occlusion from cancer or any mucous plugging. Will get a chest x-ray in regards to that. He
still wants to take her home irrespective of the findings.
Patient is pain medication at home. Will prescribed Ativan on discharge. He has oxygen at home. Await other equipment to arrive today.
Had discussions with case management and hospice team 02/24.
DC home with 24-hour care on hospice today.
Total time of discharge 35 minutes
Anticipated Discharge: Today
Subjective/Interval History
-
Date of Service: February 26, 2024
Patient resting comfortably and sleeping. Son did not want me to wake her up.
He has seen her settling down with regards to her breathing. She was acutely short of breath on presentation but now she is now setteled on 4 L of oxygen. Usually uses 3 and half liters at home. She is much calmer with the breathing. She did
not complain much of pain.
Son says he had a discussion with oncology yesterday and knows the poor prognosis from the cancer ; he had discussions with hospice team and plans to take her home today on hospice.
Objective Data
-
Vital Signs:
Vital Signs
Temp Pulse Resp BP Pulse Ox
97.5 F 111 15 134/94 98
02/26/24 03:56 02/26/24 06:00 02/26/24 06:00 02/26/24 06:00 02/26/24 06:00
I&O
02/25/24 02/26/24 02/27/24
06:59 06:59 06:59
Intake Total 170.3 / 170.3 100 / 100
Output Total 1675 / 1675 950 / 950
Balance -1504.7 / -1504.7 -850 / -850
Review of Systems
-
Unable to obtain full review of systems at this time due to: Other (see above)
Physical Exam
-
General: Comfortable
Respiratory: Non Labored Respirations; Negative Accessory Resp Muscle Use
Cardiac: Regular Rhythm (SR on monitor) and S1/S2
Neuro: Other (sleeping)
Psych: Calm
[2024-02-26] MEDS: MUCOMYST 10% INH ×3 (08:21→09:11)
[2024-02-26] MEDS: PULMICORT INH (08:21)
--- NOTE | 2024-02-26 08:39 | W.DS.TRANS ---
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
-
Discharge Instructions:
Discharge Diagnosis/Procedures Non-small cell lung cancer
Diet Other diet
Additional Diets Pur�ed diet
Activity As tolerated
Driving Restrictions No driving
Other Services Hospice
Instructions:
Stand-Alone Forms:
Changes to Home Medications: Yes
Discharge Medications:
DC Medications w/original date entered in What's Trending
phenobarbital 64.8 mg tablet 64.8 mg PO QPM Neurological Condition 03/12/19
tiotropium bromide 18 mcg capsule with inhalation device (Spiriva with HandiHaler) 1 cap inhalation R DAILY Lung/Breathing Issues 09/26/22
sodium chloride 1,000 mg soluble tablet 1,000 mg PO BID Supplement #60 tabs 09/20/23
ascorbic acid (vitamin C) 500 mg tablet (Vitamin C) 500 mg PO DAILY Supplement 11/09/23
loratadine 10 mg tablet (Claritin) 10 mg PO DAILY Allergies 11/09/23
fluticasone furoate 200 mcg-vilanterol 25 mcg/dose inhalation powder (Breo Ellipta) 1 inh inhalation R DAILY Lung/Breathing Issues 11/22/23
calcitonin (salmon) 200 unit/actuation nasal spray 1 spray intranasal (ALT) DAILY RENAL 01/21/24
cholecalciferol (vitamin D3) 1,250 mcg (50,000 unit) capsule 1,250 mcg PO TU@0800 Supplement 01/21/24
cyanocobalamin (vitamin B-12) 1,000 mcg/mL injection solution 1,000 mcg IM QMONTH Supplement 01/21/24
cyclosporine 0.05 % eye drops in a dropperette (Restasis) 1 drp BOTH EYES Q12H Eye Condition 01/21/24
diphenoxylate-atropine 2.5 mg-0.025 mg tablet 1 - 2 tab PO QIDPRN PRN diarrhea 01/21/24
folic acid 1 mg tablet 1 mg PO DAILY Supplement 01/21/24
lisinopril 2.5 mg tablet 2.5 mg PO DAILY Blood Pressure 01/21/24
rosuvastatin 5 mg tablet 5 mg PO QPM High Cholesterol 01/21/24
apixaban 5 mg tablet (Eliquis) 5 mg PO BID #60 tabs 01/31/24
ondansetron HCl 4 mg tablet 8 mg (2 x 4 mg) PO Q6HPRN PRN Nausea/Vomiting #60 tabs 01/31/24
pantoprazole 40 mg tablet,delayed release 40 mg PO DAILY GERD #30 tabs 01/31/24
fluvoxamine 50 mg tablet 50 mg PO DAILY Mental Health/Anxiety 02/09/24
sulfamethoxazole 800 mg-trimethoprim 160 mg tablet (Bactrim DS) 1 tab PO MOWEFR@0800 Infection 02/09/24
oxycodone 15 mg tablet 15 mg PO Q6HPRN PRN mild pain 02/19/24
acetaminophen 325 mg tablet 650 mg (2 x 325 mg) PO Q4HPRN PRN mild pain /fever >100.4 #1 tab 02/26/24
guaifenesin 600 mg tablet, extended release 12 hr (Mucinex) 600 mg PO BID Congestion #60 tabs 02/26/24
ipratropium 0.5 mg-albuterol 3 mg (2.5 mg base)/3 mL nebulization soln 3 ml inhalation R Q4 PRN shortness of breath or wheezing #180 mL 02/26/24
lorazepam 1 mg tablet (Ativan) 1 mg PO Q6HPRN PRN anxiety #20 tabs 02/26/24
metoprolol tartrate 25 mg tablet 25 mg PO BID #60 tabs 02/26/24
polyethylene glycol 3350 17 gram oral powder packet (HealthyLax) 17 g PO DAILYPRN PRN constipation #30 ea 02/26/24
prednisone 10 mg tablet 10 mg PO DIRECTED #30 tabs 02/26/24
sennosides 8.6 mg-docusate sodium 50 mg tablet (Stool Softener-Stimulant Laxative) 1 tab PO BID constipation #60 tabs 02/26/24
Home Medication Changes
New medication-senna, prednisone taper, MiraLAX, metoprolol, Ativan, DuoNebs,
Pending Results: No
[2024-02-26] MEDS: PULMICORT 0.5 MG INH (09:07)
[2024-02-26] MEDS: DUONEB 3 ML INH (09:07)
[2024-02-26] MEDS: MUCINEX 1200 MG PO (09:20)
[2024-02-26] MEDS: ELIQUIS 5 MG PO (09:20)
[2024-02-26] MEDS: LASIX 40 MG IV (09:20)
[2024-02-26] MEDS: LOPRESSOR 5 MG IV (09:59)
[2024-02-26 10:00] VITALS: BP 129/86
--- NOTE | 2024-02-26 10:19 | W.PN.PUL.V3 ---
Today's Communication / Plan
-
Comfort
Morphine and Ativan as needed
Currently hospice-pulmonary will sign off
Assessment
-
Assessment: 74-year-old female with a past medical history of COPD, NSCLC s/p RLL lobectomy + RUL wedge resection s/p chemo/immunotherapy, recurrent right-sided malignant effusion s/p Pleurx catheter, Crohn's disease, hypertension, seizure disorder
and anxiety who presents with shortness of breath. She has been getting more SOB over the last few days with reduced mentation. In the ER she was on a nonrebreather saturating 99%, with BP 115/81, tachycardic to the 160s and tachypneic to 32
breaths/min. She was afebrile to 97.8 �F. Labs showed leukocytosis 17.1, acute on chronic hypercapnia with pH: 7.3, pCO2 72, pO2 119 and O2�saturation: 99.6%. Her troponin was negative. Her proBNP was 545 and her procalcitonin was negative at
0.08. Blood cultures were collected. CXR shows near complete opacification of the right lung consistent with progressive postobstructive pneumonia versus atelectasis, with acute interstitial pulmonary edema seen in the left lung. She was placed
on 2 BiPAP in the ER. She also was found to be in A-fib with RVR. She was given antibiotics with cefepime in the ER, plus Cardizem 10 mg push and started on a Cardizem drip. Also given nebulized albuterol and then admitted to the hospitalist
service to the IMU, and pulmonary service now consulted for additional management/recommendations.
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
Hypertension
Seizure disorder
COPD
Anxiety/Depressive disorder
Osteoarthritis
Ruptured gallbladder and poss stones in bile duct s/p Cholecystectomy 1975
Pneumonia(2016)
Hyponatremia
Adenocarcinoma RLL, RUL/NSCLC, known to [facility] s/p Right lower lobectomy (08/22/2022) + RUL wedge resection
Recurrent malignant pleural effusions s/p pleurx R
Hay Fever
Appendectomy(1970)
Delayed closure of abdominal wounds (1970)
Partial Small Bowel Resection(2014)
Facelift 2 surgeries back to back (03/25/19)
Bilat eye lift - Sep 2020
Cataract-lens implants January 2021
Impression:
#Acute on chronic respiratory failure with hypoxia + hypercapnea - suspect this is multifactorial from acute decompensated heart failure (acute HFpEF exacerbation) + progression of her cancer now with R-mainstem obstruction (either from mucous or
tumor) in setting of COPD + volume overload and recent pneumonitis; difficult to rule out if she has a recurrent PNA
#Acute HFpEF exacerbation
#A-fib with RVR requiring cardizem gtt
#Hypomagnesemia
#NSCLC s/p RLL lobectomy + RUL wedge resection c/b malignant R-sided pleural effusion s/p r pleurx
#Recent Dx acute R-sided submassive PE now on Eliquis
#Hyponatremia
#Metabolic alkalosis
Plan:
Respiratory status improved but tenuous-ABG improved
Supplemental oxygen as needed
BiPAP/noninvasive ventilation as tolerated
Note: ABG 02/24/2024--61/110/7 0.42
ABG with improvement in hypercapnia and now pH 7.42-suspect back to baseline pCO2-60-65
Incentive spirometry
Nebulizers
Aspiration precautions
Speech therapy evaluation
Mucolytic's-Mucinex and Mucomyst
Nebulizers-budesonide and DuoNebs
Systemic steroids-wean
Mucus clearing devices-incentive spirometry and flutter
Cultures reviewed
Broad-spectrum antibiotics-Zosyn continues
Interventional radiology consulted for right-sided Pleurx drainage
Continue diuresis as tolerated
Monitor renal function, electrolytes, intake/output, lower extremity edema and weight
Replace electrolytes as needed
DVT prophylaxis
Nutrition
Early mobilization/physical therapy
Reviewed with son at the bedside
Reviewed with Dr. Harrington-unfortunately patient is nearing terminal status and comfort should be a priority-hospice very appropriate
Patient has been moved towards hospice-pulmonary team will sign off-reviewed with Dr. Harrington-please call with questions
Pulmonary team does not recommend extraordinary interventions such as bronchoscopy/core out procedures, tracheal stents, etc. palliation and hospice would be unfortunately appropriate
Communications:
Dr. Cantrell spoke to the patient's son 02/24/2024, Benigno as well as the patient's friend, Daniella at bedside. They understand that the patient has poor prognosis and they would like her to be brought home on hospice. I will consult hospice to have
this discussion with them tomorrow. We still need to get the patient off the Cardizem drip. If patient remains only on 3-4 L/min nasal cannula, then I think she has a high likelihood of being appropriate for discharge back home as long as the
patient's family can handle her at home in this end of life scenario.
Data:
CTA Chest 02-24-2024:
1. NEW COMPLETE OBSTRUCTION of the RIGHT MAINSTEM BRONCHUS with near complete consolidation of the right lung (either malignancy or endobronchial mucous plugging could be the etiology of the right lung central airway obstruction).
2. Severe airspace consolidation, interstitial disease, and pleural thickening throughout the right lung consistent with SEVERE PLEURAL METASTATIC DISEASE, LYMPHANGITIC CARCINOMATOSIS, and POSTOBSTRUCTIVE ATELECTASIS/PNEUMONIA.
3. Small complex pleural effusion in the inferior right hemithorax containing a chest tube.
4. MODERATE-SIZED LEFT PLEURAL EFFUSION which has increased in size.
5. 1.1 cm spiculated pulmonary metastasis in the left lower lobe.
6. ACUTE VERTEBRAL BODY ENDPLATE FRACTURES of T4 with complete vertebral body collapse and retropulsion of the posterior cortex into the epidural space causing moderate central canal stenosis.
TTE 01-30-2024:
Normal left ventricular chamber size. Normal left ventricular wall thickness.
Normal left ventricular systolic function. Normal regional wall motion. LV
ejection fraction is 65-70% by Caicedo's method of discs. Diastolic function
indeterminate.
Normal right ventricular size and function.
Mild aortic regurgitation.
Trace tricuspid regurgitation. Estimated pulmonary artery pressure of 35-40
mmHg. Assuming a right atrial pressure of 3 mmHg.
Compared to prior study dated 09/18/23, there is no significant change
Subjective Data
-
Date of Service:
Date of Service: February 26, 2024
Chief Complaint: Pulmonary Follow Up and Dyspnea Follow Up
Subjective:
Sleeping comfortably, no respiratory distress, review systems unobtainable
Review of Systems
General: Other (Per HPI)
Objective Data
Data Reviewed
Vital Signs / I&O:
Vital Signs
Temp Pulse Resp BP Pulse Ox
97.5 F 126 15 114/83 95
02/26/24 03:56 02/26/24 09:59 02/26/24 06:00 02/26/24 09:59 02/26/24 09:10
Intake and Output
02/25/24 02/26/24 02/27/24
06:59 06:59 06:59
Intake Total 170.3 / 170.3 100 / 100
Output Total 1675 / 1675 950 / 950
Balance -1504.7 / -1504.7 -850 / -850
SaO2: 95
Nasal Cannula flow liters per minute: 4
Physical Exam
General: Respiratory Distress (n) and Comfortable
HEENT: Normocephalic, Anicteric and Moist Mucous Membranes
Cardiovascular: Regular Rhythm
Respiratory: Clear ( prolonged expiratory time), Wheeze (Forced expiratory wheezing), Crackles (Rare basilar), Rhonchi (Few expiratory), Non-Labored Respirations, Accessory Resp Muscle Use (n) and Stridor (n)
GI: Soft, Non Distended and Non Tender
Neurology: Awake, Alert, No Motor Deficits and Lethargic
Skin: Warm, Good Color, Cyanosis (n), Jaundice (n) and Rash (n)
Labs/Micro/Reports
Lab Data
02/25/24 05:54
02/25/24 05:54
Laboratory Results
02/25/24
15:00
APTT Cancelled
Microbiology
02/24/24 07:36 Blood/Venous Blood Culture - Preliminary
No Growth in 48 hours- Final report to follow
02/24/24 07:52 Blood/Venous Blood Culture - Preliminary
No Growth in 48 hours- Final report to follow
02/24/24 16:14 Urine Legionella Urinary Antigen - Final
Negative for Legionella pneumophila Serogroup 1 antigen.
A negative result does not rule out the possiblity of
Legionella infection due to other serogroups or species of
Legionella. Clinical correlation is recommended.
02/24/24 16:14 Urine Streptococcus pneumoniae Antigen (M - Final
Negative for Streptococcus pneumoniae antigen.
A negative result does not exclude infection with
Streptococcus pneumoniae. Clinical correlation is
recommended.
02/24/24 13:41 Nose Nasal Screen MRSA (PCR) - Final
MRSA not detected - performed by PCR methodology.
--- NOTE | 2024-02-26 10:28 | PTCARENOTE ---
Patient AAOx2, anxious PRN ativan given. VSS. Had short SVT HR 170s with return to baseline NST 120. Lopressor given. Ileostomy changed entirely. IVs and tele removed. Reviewed DC packet with son. 4Fabián MORALES. All questions answered. Patient DCd by
stretcher by ambulance.
--- NOTE | 2024-02-26 13:50 | CM ---
Patient with Hx NSCLC, ileostomy with Dx malignant pleural effusion, COPD, CHF, pneumonia, sepsis, TME. O2 4L.
As per prior CM notes, arrangements in place for patient to d/c home today with Hospice and 24 hr caregivers. IMM completed yesterday.
Spoke with patient's friend Daniella who confirmed home address for ambulance transport.
[facility] DNR form on chart with MD signature.
Plan home today with Hospice and caregivers at 10am by ambulance.
== END 2024-02-26 10:49 | disposition hospice, home (50) | DRG 871 ==
LOC: IMU 09:57
PROVIDERS: ADMITTING PHYSICIAN Hospitalist; ATTENDING PHYSICIAN Internal Medicine; CONSULT PHYSICIAN Internal Medicine Critical Care Medicine; EMERGENCY PHYSICIAN Emergency Medicine; FAMILY PHYSICIAN Internal Medicine
DX: A41.9 Sepsis, unspecified organism (principal); G92.8 Other toxic encephalopathy; I50.33 Acute on chronic diastolic (congestive) heart failure; J18.9 Pneumonia, unspecified organism; J96.21 Acute and chronic respiratory failure with hypoxia; J96.22 Acute and chronic respiratory failure with hypercapnia; J44.1 Chronic obstructive pulmonary disease with (acute) exacerbation; E87.1 Hypo-osmolality and hyponatremia; E87.3 Alkalosis; J44.0 Chronic obstructive pulmonary disease with (acute) lower respiratory infection; C34.90 Malignant neoplasm of unspecified part of unspecified bronchus or lung; C78.2 Secondary malignant neoplasm of pleura; C78.02 Secondary malignant neoplasm of left lung; C77.9 Secondary and unspecified malignant neoplasm of lymph node, unspecified; I11.0 Hypertensive heart disease with heart failure
CPT/HCPCS: 71045; 71275; 80053; 82248; 82805; 83605; 83615; 83735; 83880; 84100; 84145; 84484; 85025; 85027; 85730; 87040; 87449; 87641; 87899; 92526; 92610; 93005; 94640; 94660; 94669; 96365; 96366; 96374; 96375; 99291; Q9967

== ENCOUNTER 2024-03-03 10:41 | Emergency (ER) | payer MEDICARE, OTHER, SELFPAY ==
[2024-03-03 10:46] VITALS: BMI 20.3
[2024-03-03 10:48] VITALS: BP 112/92
[2024-03-03 11:00] VITALS: BP 108/86
--- NOTE | 2024-03-03 11:04 | ED.GENMED ---
History of Present Illness
General
Chief Complaint: Breathing Problem
Source: family
Exam Limitations: clinical condition
Time Seen by Provider: 03/03/24 10:46
Travel History
Have you had any contact with someone who has COVID-19?: No
Do you have any symptoms of coronavirus? Fever > 100 degrees, chills, cough, shortness of breath, sore throat, loss of taste or smell, muscle aches, or headache?: No
History of Present Illness
History of Present Illness:
Patient is a hospice patient. Discharged 5 to 6 days ago. COPD. Oxygen dependent. Metastatic lung CA with malignant pleural effusion. Sent for respiratory distress and low oxygen levels at home. Apparently the patient requested to come in.
Past History
Past History
ED Past Medical History: Cancer, COPD, HTN, Seizures and Other (Crohn's disease, anxiety)
ED Past Surgical History: Bowel resection (For Crohn's disease with a subsequent colostomy), Cholecystectomy and Other (Partial lung lobectomy)
Social History
Tobacco: Former smoker
Alcohol: None
Drug: None
Personal:
Living: alone
Employment: Employed
Family History
Family History: Other (No significant)
Review of Systems
Review of Systems
All Other Systems: Not applicable
Phy Exam
Physical Exam
Physical Exam:
GENERAL: Lethargic. Hectic. Moderate respiratory distress. Chronically ill-appearing
EYE: Orbits normal.
NECK: Supple
CARDIAC: Regular rate and rhythm without any obvious murmurs.
LUNGS: Diffuse rhonchi and coarse breath sounds throughout. Tachycardic.
ABDOMEN: Soft, without focal tenderness or distention
NEUROLOGICAL: Lethargic. Nonfocal
SKIN: Pale slightly mottled appearing
MUSCULOSKELETAL: No edema,no deformity.Good color
PSYCH: Poor eye contact. Flat.
Scores
Heart Failure Risk
Heart Failure Risk Score: Not Applicable
Course
Orders/Labs/Results
Orders:
Orders
03/03/24 11:03
Morphine Sulfate 2 mg IV NOW STA
03/03/24 11:53
Morphine Sulfate 2 mg .ROUTE .STK-MED ONE
03/03/24 11:54
Morphine Sulfate 2 mg IV NOW STA
Vital Signs
Initial and Last Documented VS:
Initial Vital Signs
Pulse Resp
127 35
03/03/24 10:45 03/03/24 10:45
Last Documented Vital Signs
Pulse Resp BP Pulse Ox
127 34 112/92 97
03/03/24 10:48 03/03/24 10:48 03/03/24 10:48 03/03/24 10:51
*Critical Care Note
Total Time (30-74mins, 75-104mins- exclusive of procedures): 40
Update Note
Update Note:
1105... Lengthy discussion with the patient and family. She remains hospice. Here for increased congestion and shortness of breath. Not handling this at home. Discussed additional dose of morphine also discussed stopping hospice which does not
seem to be on the table. They may be interested in inpatient hospice
1220.... I had a lengthy discussion with the son. Agreed to a morphine drip. However patient just .
Discussed with therapy administrative assistant.
ED Attending Note
-
Portions of this chart may have been created with voice recognition software.� Occasional wrong word or��sound alike� substitutions may have occurred due to the inherent limitations of voice recognition software.
Discharge Plan
Departure
Patient Disposition:
Date of Disposition: 03/03/24
Time of Disposition: 12:18
Discharge Problem:
Cardiopulmonary arrest, Hospice patient, COPD/lung CA
Prescriptions:
No Action
phenobarbital 64.8 MG tablet
64.8 mg PO QPM
tiotropium bromide [Spiriva with HandiHaler] 18 mcg Capsule, W/Inhalation Device
1 cap INHALATION R DAILY
sodium chloride 1,000 mg tablet,soluble
1,000 mg PO BID Qty: 60 0RF
ascorbic acid (vitamin C) [Vitamin C] 500 mg Tablet
500 mg PO DAILY
loratadine [Claritin] 10 mg Tablet
10 mg PO DAILY
fluticasone furoate-vilanterol [Breo Ellipta] 200-25 mcg/dose Blister With Device
1 inh INHALATION R DAILY
diphenoxylate-atropine 2.5-0.025 mg Tablet
1 - 2 tab PO QIDPRN PRN (Reason: diarrhea)
calcitonin (salmon) 200 unit/actuation [place],Non-Aerosol
1 spray INTRANASAL (ALT) DAILY
Patient Comments:
patient forgets to take this med regularly.
cyanocobalamin (vitamin B-12) 1,000 mcg/mL Solution
1,000 mcg IM QMONTH
folic acid 1 mg Tablet
1 mg PO DAILY
lisinopril 2.5 mg Tablet
2.5 mg PO DAILY
cyclosporine [Restasis] 0.05 % Dropperette
1 drp BOTH EYES Q12H
rosuvastatin 5 mg Tablet
5 mg PO QPM
cholecalciferol (vitamin D3) 1,250 mcg (50,000 unit) Capsule
1,250 mcg PO TU@0800
Eliquis 5 mg tablet
5 mg PO BID Qty: 60 1RF
ondansetron HCl 4 mg Tablet
8 mg PO Q6HPRN PRN (Reason: Nausea/Vomiting) Qty: 60 0RF
pantoprazole 40 mg Tablet,Delayed Release (Dr/Ec)
40 mg PO DAILY Qty: 30 2RF
fluvoxamine 50 mg tablet
50 mg PO DAILY
sulfamethoxazole-trimethoprim [Bactrim DS] 800-160 mg Tablet
1 tab PO MOWEFR@0800
oxycodone 15 mg Tablet
15 mg PO Q6HPRN PRN (Reason: mild pain)
prednisone 10 mg tablet
10 mg PO DIRECTED Qty: 30 0RF
Rx Instructions:
40mg daily for 3 days and cut it down by 10mg every 3 days
acetaminophen 325 mg Tablet
650 mg PO Q4HPRN PRN (Reason: mild pain /fever >100.4) Qty: 1 0RF
sennosides-docusate sodium [Stool Softener-Stimulant Laxat] 8.6-50 mg Tablet
1 tab PO BID Qty: 60 0RF
polyethylene glycol 3350 [HealthyLax] 17 gram Powder In Packet
17 g PO DAILYPRN PRN (Reason: constipation) Qty: 30 0RF
ipratropium-albuterol 0.5 mg-3 mg(2.5 mg base)/3 mL Solution For Nebulization
3 ml inhalation R Q4 PRN (Reason: shortness of breath or wheezing) Qty: 180 0RF
metoprolol tartrate 25 mg tablet
25 mg PO BID Qty: 60 0RF
lorazepam [Ativan] 1 mg tablet
1 mg PO Q6HPRN PRN (Reason: anxiety) Qty: 20 0RF
guaifenesin [Mucinex] 600 mg Tablet Extended Release 12hr
600 mg PO BID Qty: 60 0RF
Referrals:
Marilyn Cortez MD [Family Provider] -
Interventions
Interventions:
*Risk Screen - Suicide Last Done: 03/03/24 10:46
*General Assessment Last Done: 03/03/24 10:46
*Neglect/Abuse Screening Last Done: 03/03/24 10:46
ED- Fall Risk Assessment Last Done: 03/03/24 10:53
*ED COVID-19 Vaccine History Last Done: 03/03/24 10:46
ED- Cardiac Assessment Last Done: 03/03/24 10:51
ED- Pulmonary Assessment Last Done: 03/03/24 10:51
Discharge Date and Time
Print Language: KYRGYZ
[2024-03-03] MEDS: MORPHINE SULFATE 2 MG IV ×2 (11:10→11:54)
[2024-03-03 12:00] VITALS: BP 91/75
--- NOTE | 2024-03-03 15:05 | HOSPNOTE ---
The patient was on hospice with at home and this am the son panicked and called 911. The son was in contact all weekend with the hospice nurse. I spoke with the son and suggested we keep the patient comfortable here in the hospital since I
believed the patient was actively dying, the son was struggling emotionally and wanted to speak with the MD. Dr Richard spoke with the son at length with myself present and was then in agreement to allow us to keep the patient comfortable and
administer medications. Patient and emotional support was given to the son.
== END 2024-03-03 14:44 | disposition expired ==
LOC: EMR 10:41
PROVIDERS: EMERGENCY PHYSICIAN Emergency Medicine; FAMILY PHYSICIAN Internal Medicine
DX: I46.9 Cardiac arrest, cause unspecified (principal); R06.03 Acute respiratory distress; J44.1 Chronic obstructive pulmonary disease with (acute) exacerbation; C34.90 Malignant neoplasm of unspecified part of unspecified bronchus or lung; J91.0 Malignant pleural effusion; K50.90 Crohn's disease, unspecified, without complications; F41.9 Anxiety disorder, unspecified; I10 Essential (primary) hypertension; Z99.81 Dependence on supplemental oxygen; Z87.891 Personal history of nicotine dependence; Z90.49 Acquired absence of other specified parts of digestive tract; Z90.2 Acquired absence of lung [part of]; Z98.0 Intestinal bypass and anastomosis status
CPT/HCPCS: 99291; 96374; 96376